=== PATIENT | female | born 1935 | race Caucasian/White ===

== ENCOUNTER 2018-10-10 08:12 | Day surgery (SDC) | payer OTHER, BC ==
[2018-10-03 09:50] LABS: Absolute Lymphocytes (CBC) 2.6 K/uL (0.7-4.9); Absolute Monocytes 0.5 K/uL (0.1-1.3); Basophils % 1.3 % (0-1.3); Hematocrit 39.8 % (36.0-45.0); Lymphocytes % 48.2 % (15.3-44.8); MPV 8.2 fL (7.6-11.3); Monocytes % 9.5 % (3.3-12.3); RBC Red Blood Cell Count 4.38 M/uL (3.86-4.86)
[2018-10-03 10:04] LABS: Potassium 3.7 mmol/L (3.5-5.1)
--- NOTE | 2018-10-03 17:07 | EKG ---
Test Date: 2018-10-03 Test Time: 08:34:17 Tub Washer: RAMYA MEASUREMENT RESULTS: Intervals: Rate: 57 MA: 186 QRSD: 120 QT: 462 QTc: 449 Sproul: P: 69 MA: 186 QRS: -21 T: 33 INTERPRETIVE STATEMENTS: Sinus bradycardia Low voltage QRS Right bundle branch block Abnormal ECG Compared to ECG 11/07/2016 12:28:27 Low QRS voltage now present Electronically Signed On 10-03-18 17:05:33 CDT by Anshul Matute
--- NOTE | 2018-10-04 13:51 | RAD REPORT ---
EXAM DESCRIPTION: López June (2 Views)10/04/2018 1:36 pm CLINICAL HISTORY: Preop/hypertension COMPARISON: September 2017 FINDINGS: The lungs appear clear of acute infiltrate. The heart is normal size. Small to moderate h iatal hernia IMPRESSION: No acute abnormalities displayed
--- OUTSIDE RECORDS SUMMARY | 2018-10-10 08:15 | XMS REPORT ---
:1935 [facility] Address [address] [place] [address] Care Team Providers Name Role Phone Unavailable Unavailable Unavailable Problems This patient has no known problems. Allergies, Adverse Reactions, Alerts This patient has no known allergies or adverse reactions. Medications This patient has no known medications.
[2018-10-10] MEDS ORDERED: CEFOXITIN/SWI 1gm 0 GM/0 ML SYR ONE (08:47)
[2018-10-10] MEDS ORDERED: NA CHLORIDE 0.9% 1,000 ML ONE ×2 (08:47→15:38)
[2018-10-10] MEDS ORDERED: CEFOXITIN/SWI 1gm 1 GM/10 ML SYR ONE (08:49)
[2018-10-10] MEDS ORDERED: PROPOFOL 200 MG/20 ML VIAL IV ONE (14:29)
[2018-10-10] MEDS ORDERED: GLYCOPYRROLATE 0.2 MG/ML SYR ONE ×2 (14:30→15:32)
[2018-10-10] MEDS ORDERED: FENTANYL CITR 100 MCG/2 ML ONE ×2 (14:30→15:36)
[2018-10-10] MEDS ORDERED: LIDOCAINE 2% MPF 5 ML VIAL ONE (14:31)
[2018-10-10] MEDS ORDERED: ROCURONIUM 50 MG/5 ML VIAL IV ONE (14:31)
[2018-10-10] MEDS ORDERED: NEOSTIGMINE 1 MG/ML -10 ML VIAL ONE (14:33)
[2018-10-10] MEDS ORDERED: EPHEDRINE SULF 50 MG/ML VIAL ONE (15:30)
[2018-10-10] MEDS ORDERED: Mastisol Adhesive Liq ONE (16:01)
[2018-10-10] MEDS: MEPERIDINE HCL 25 MG/0.5 ML ONE ×4 (16:07→16:22)
[2018-10-10] MEDS: HYDROMORPHONE HCL 1 MG/ML INJ ONE ×4 (16:38→17:05)
[2018-10-10] MEDS ORDERED: PROMETHAZINE 25 MG/ML VIAL ONE (16:43)
[2018-10-10] MEDS ORDERED: HYDROCODONE/APAP 7.5/325 MG TAB ONE (17:23)
[2018-10-10 17:28] VITALS: TEMP 97.5
[2018-10-10 18:14] VITALS: BP 118/64; O2SAT 96
--- NOTE | 2018-10-11 02:02 | DS ---
Date of Discharge: 10/10/2018 The patient will go to the Day Surgery and home when stable. Disposition: Home. Condition: Stable. Discharge Instructions: Resume home medications and diet. Activity, as tolerated. No heavy lifting . Remove outer dressing in 2 days. Shower. Keep wound clean and dry. Keep Steri-Strips on at all times. Follow up in my office in one week, call for appointment. Tylenol No. 3 one tablet p.o. q.4 p.r.n. pain. /MODL Voice ID: [id number] Report ID: [id number]
--- NOTE | 2018-10-11 02:02 | OP ---
Date of Procedure: 10/10/2018 Surgeon: Hamilton Marrufo MD Electrical Laboratory Technician: JUANITO Franklin. Preoperative Diagnosis: Chronic abdominal pain, most likely secondary to adhesions. Postoperative Diagnosis: Chronic abdominal pain, most likely secondary to adhesions. Procedures: Diagnostic laparoscopy and extensive lysis of adhesions. Estimated Blood Loss: Minimal. Specimen: None. Findings: As above. Anesthesia: General. Complications: None. Disposition: Patient tolerated the procedure in stable condition and taken to Recovery in good gener al condition. Procedure In Detail: The patient was brought to the OR and placed in supine position. General anest hesia was begun. The patient was prepped and draped in usual sterile fashion. Marcaine 0.5% was inf iltrated locally. A 15-blade was used to make a 1 cm left upper quadrant incision. Subcutaneous tis sues were divided. The fascia was identified and divided. A #1 Vicryl stay suture was placed. Anju toneal cavity was entered with blunt dissection. A 12-mm trocar was placed into the peritoneal cavit y under direct vision. Pneumoperitoneum was established and then two 5-mm trocars were placed, one i n the left lower quadrant and one in the left middle quadrant, and then two more [address] aced later in the case, one in the right upper quadrant and one in the epigastrium. The findings are as follows: Extensive midline adhesions in the lower abdomen on both sides as well as the right upp er quadrant and extensive in the right middle quadrant. LigaSure and scissors were utilized as neede d and extensive lysis of adhesions was done for almost an hour to free up all the intestine that were tied up in the scar tissue where there was intestine involved in the adhesions. Scissors were used to do sharp dissection away from the serosa. Care was taken not to injure the serosa. There was no evidence of any bleeding noted and LigaSure was used where omental adhesions were present, and this w as done systematically in the lower abdomen, the right middle abdomen, and the right upper quadrant. After complete lysis of adhesions was performed, there was no evidence of bleeding or bowel injury a ppreciated. All trocars were removed under direct vision. Stay sutures were tied to each other to r eapproximate the fascial defect subcutaneously. The wound was irrigated. Bleeding controlled with c autery and then 3-0 chromic was used to approximate the subcutaneous tissue and close the skin. Stay sutures were tied to each other to approximate the fascial defect. Then, sterile dressing was appli ed. The patient was awakened and taken to Recovery in good general condition. JORGE/MODL Voice ID: [id number] Report ID: [id number]
== END 2018-10-10 18:18 | disposition home or self-care (01) ==
LOC: OR 08:12
PROVIDERS: ATTEND Surgery
PROC: 0DNU4ZZ Release Omentum, Percutaneous Endoscopic Approach (ICD-10-PCS; principal; 2018-10-10 11:00)
DX: K66.0 Peritoneal adhesions (postprocedural) (postinfection) (principal); Z79.899 Other long term (current) drug therapy
CPT/HCPCS: 49329; 93005; 85025; 80048; 36415; 82962 ×2; 71046; J2704; J2710; J2550; J3010 ×2; J2175 ×2; J1170 ×2; J7030 ×2

== ENCOUNTER 2018-10-12 15:56 | Emergency (ER) | payer OTHER, BC ==
--- OUTSIDE RECORDS SUMMARY | 2018-10-12 15:59 | XMS REPORT ---
:1935 [facility] [address] [place] [address] [address] [place] [id number] Care Team Providers Name Role Phone Unavailable Unavailable Unavailable Problems This patient has no known problems. Allergies, Adverse Reactions, Alerts This patient has no known allergies or adverse reactions. Medications This patient has no known medications.
[2018-10-12] MEDS ORDERED: FENTANYL CITR 100 MCG/2 ML ONE ×2 (16:52→18:06)
[2018-10-12] MEDS ORDERED: NA CHLORIDE 0.9% 1,000 ML ONE (16:52)
[2018-10-12] MEDS ORDERED: SIMETHICONE 80 MG TAB ONE (16:52)
[2018-10-12 17:06] LABS: Absolute Lymphocytes (CBC) 1.9 K/uL (0.7-4.9); Absolute Monocytes 0.5 K/uL (0.1-1.3); Absolute Neutrophil 5.6 K/uL (1.8-8.0); Eosinophils % 0.9 % (0-4.4); Hematocrit 40.7 % (36.0-45.0); MPV 7.9 fL (7.6-11.3); Monocytes % 6.7 % (3.3-12.3); RBC Red Blood Cell Count 4.64 M/uL (3.86-4.86)
[2018-10-12 17:12] LABS: Potassium 3.1 mmol/L (3.5-5.1)
[2018-10-12] MEDS ORDERED: KCL 20 MEQ/100 mL IVPB 20 MEQ/100 ML BAG IV ONE (17:45)
--- NOTE | 2018-10-12 17:49 | RAD REPORT ---
EXAM DESCRIPTION: CTAbdomen Pelvis W Contrast - 10/12/2018 5:34 pm CLINICAL HISTORY: Abdominal pain. ABD PAIN COMPARISON: Abdomen Pelvis W Contrast dated 11/12/2016; Abdomen Pelvis W Contrast dated 6; CT ABD PELVIS W CONTRAST dated 09/20/2013; CT ABD PELVIS W CONTRAST dated 07/13/2013; Abdomen Pelvi s Wo Contrast dated 09/05/2018 TECHNIQUE: Biphasic CT imaging of the abdomen and pelvis was performed with 100 ml non-ionic IV cont rast. All CT scans are performed using dose optimization technique as appropriate and may include automated exposure control or mA/KV adjustment according to patient size. FINDINGS: The lung bases are clear.Small hiatal hernia. Mild fatty liver. Cholecystectomy clips. The spleen, adrenal glands normal. Left kidney appears su l without hydronephrosis. Benign right renal cysts. Mild pancreatic atrophy. No bowel obstruction, free air, free fluid or abscess. Postsurgical changes are seen involving the sm all intestine. The appendix is not identified as a discrete structure, however, no secondary findings of appendicitis are identified. No evidence of significant lymphadenopathy. Left total hip arthroplasty noted. Moderate lumbar degenerative changes. IMPRESSION: No acute intra-abdominal or pelvic finding.
[2018-10-12] MEDS ORDERED: PROMETHAZINE 25 MG TABLET ONE (18:49)
[2018-10-12] MEDS ORDERED: ONDANSETRON 4 MG/2 ML VIAL ONE (19:33)
--- NOTE | 2018-10-12 19:59 | ER ---
Nurse's Notes [facility] Name: Yady Wallace Age: 83 yrs Sex: Female : 1935 Arrival Date: 10/12/2018 Time: 16:03 Bed 13 Private MD: Lula Pena C Diagnosis: Hypokalemia;Unspecified abdominal pain Presentation: 10/12 16:08 Presenting complaint: Patient states: I had adhesions removed on with dr ed mcdonough and since then I have not been able to keep anything down by mouth. Pt also reports abd pain and small amounts of diarrhea. Transition of care: patient was not received from another setting of care. Onset of symptoms was October 12, 2018. Risk Assessment: Do you want to hurt yourself or someone else? Patient reports no desire to harm self or others. Initial Sepsis Screen: Does the patient meet any 2 criteria? No. Patient's initial sepsis screen is negative. Does the patient have a suspected source of infection? No. Patient's initial sepsis screen is negative. Care prior to arrival: None. 16:08 Method Of Arrival: Wheelchair la1 16:08 Acuity: NILAY 2 la1 Historical: - Allergies: 16:09 Morphine; la1 16:13 Iodine; tw2 16:13 adhesive tape; tw2 - Home Meds: 16:13 atorvastatin 20 mg Oral tab 1 tab once daily [Active]; brimonidine 0.2 % ophthalmic tw2 drop 1 drop twice a day [Active]; carvedilol 12.5 mg Oral tab 1 tab 2 times per day [Active]; dorzolamide 2 % ophthalmic drop 1 drop twice a day [Active]; famotidine 40 mg Oral tab 1 tab once daily [Active]; gabapentin 600 mg Oral tab 1 tab 2 tabs PO in the am, 1 tab PO at noon, and 2 tabs PO in evening [Active]; latanoprost 0.005 % ophthalmic drop 1 drop once daily [Active]; levothyroxine 50 mcg tab 1 tab once daily [Active]; - PMHx: 16:09 GERD; Glaucoma; High Cholesterol; Hypertension; Hypothyroidism; neuropathy; la1 - PSHx: 16:13 Cholecystectomy; Hernia repair; Tonsillectomy; small bowel resection; Knee surgery; tw2 Hysterectomy; Appendectomy; - Immunization history:: Adult Immunizations up to date. - Social history:: Smoking status: Patient/guardian denies using tobacco. - Ebola Screening: : No symptoms or risks identified at this time. Screenin:00 Abuse screen: Denies threats or abuse. Nutritional screening: No deficits noted. tw2 Tuberculosis screening: No symptoms or risk factors identified. Fall Risk Secondary diagnosis (15 points) impaired mobility. Assessment: 16:10 General: Appears uncomfortable, Behavior is calm, cooperative, appropriate for age. tw2 Pain: Complains of pain in abdomen. Neuro: Level of Consciousness is awake, alert, obeys commands, Oriented to person, place, time, situation. Cardiovascular: Heart tones S1 S2 Patient's skin is warm and dry. Respiratory: Airway is patent Respiratory effort is even, unlabored, Respiratory pattern is regular, symmetrical, Breath sounds are clear bilaterally. GI: Abdomen is round non-distended, Bowel sounds present X 4 quads. Reports Last BM today x2, abdominal pain from the "adhesion surgery, I wish they would have kept me and not sent me home, I hope they keep me today". : No signs and/or symptoms were reported regarding the genitourinary system. EENT: No signs and/or symptoms were reported regarding the EENT system. Derm: No signs and/or symptoms reported regarding the dermatologic system. Musculoskeletal: Circulation, motion, and sensation intact. Range of motion: intact in all extremities. 17:00 Reassessment: No changes from previously documented assessment. Patient and/or family tw2 updated on plan of care and expected duration. Pain level reassessed. Patient is alert, oriented x 3, equal unlabored respirations, skin warm/dry/pink. 17:47 Reassessment: Patient appears in no apparent distress at this time. Patient and/or tw2 family updated on plan of care and expected duration. Pain level reassessed. Patient is alert, oriented x 3, equal unlabored respirations, skin warm/dry/pink. pt back from cat scan at this time, pt states "pain was better initially but it is hurting again", provider notified. 18:39 Reassessment: pt c/o nausea at this time, medicated as ordered. tw2 19:08 General: Appears in no apparent distress. uncomfortable, Behavior is calm, cooperative, rr5 appropriate for age. Pain: Denies pain. Neuro: Level of Consciousness is awake, alert, obeys commands, Oriented to person, place, time, situation, Appropriate for age. Cardiovascular: Capillary refill < 3 seconds Patient's skin is warm and dry. Respiratory: Airway is patent Respiratory effort is even, unlabored, Respiratory pattern is regular, symmetrical. GI: Reports nausea, vomiting. : No signs and/or symptoms were reported regarding the genitourinary system. EENT: No signs and/or symptoms were reported regarding the EENT system. Derm: No signs and/or symptoms reported regarding the dermatologic system. Musculoskeletal: Circulation, motion, and sensation intact. Range of motion: intact in all extremities. 20:00 Reassessment: Patient appears in no apparent distress at this time. Patient states rr5 symptoms have improved. 20:26 Reassessment: Patient appears in no apparent distress at this time. Patient is alert, rr5 oriented x 3, equal unlabored respirations, skin warm/dry/pink. discharge instruction given and explained without complaints made. Patient states symptoms have improved. Vital Signs: 16:10 BP 130 / 66; Pulse 76; Resp 18; Temp 99.1; Pulse Ox 98% on R/A; Weight 73.94 kg; Height la1 5 ft. 1 in. (154.94 cm); Pain 10/10; 17:00 BP 144 / 71; Pulse 75; Resp 17; Pulse Ox 95% on R/A; tw2 17:48 BP 130 / 66; Pulse 88; Resp 17; Pulse Ox 97% on R/A; tw2 17:56 Temp 99.6(O); tw2 18:40 BP 134 / 68; Pulse 92; Resp 17; Pulse Ox 99% 2 lpm ; tw2 19:11 BP 136 / 84; Pulse 94; Resp 17; Temp 98.8; Pulse Ox 99% on 2 lpm NC; Pain 0/10; rr5 20:15 BP 133 / 75; Pulse 90; Resp 18; Temp 98.7; Pulse Ox 98% on R/A; rr5 16:10 Body Mass Index 30.80 (73.94 kg, 154.94 cm) la1 18:40 pt placed on 2L nc at this time to help with the nausea tw2 ED Course: 16:03 Patient arrived in ED. mr 16:04 Lula Pena MD is Private Physician. mr 16:07 Francesca Rolle, ADA[facility]. snw 16:07 Alessio Mcpherson MD is Attending Physician. snw 16:09 Triage completed. la1 16:10 Any Ellis, RN is Primary Nurse. tw2 16:10 Arm band placed on left wrist. la1 16:10 Bed in low position. Call light in reach. Adult w/ patient. Pulse ox on. NIBP on. tw2 16:46 Initial lab(s) drawn, by me, sent to lab. First set of blood cultures drawn. kj1 16:51 Inserted saline lock: 22 gauge in right antecubital area, using aseptic technique. kj1 16:52 Blood Culture* Sent. kj1 16:56 Radiology exam delayed due to lab results not completed at this time. (BUN/Creatinine). bq 17:33 CT completed. Patient tolerated procedure well. Patient moved back from CT. bq 17:34 CT Abd/Pelvis - W/Contrast In Process Unspecified. EDMS 19:00 Report given to JAM Soares. tw2 19:57 Lula Pena MD is Referral Physician. snw 20:28 No provider procedures requiring assistance completed. IV discontinued, intact, rr5 bleeding controlled, No redness/swelling at site. Pressure dressing applied. Administered Medications: 16:48 Drug: fentaNYL (PF) 25 mcg Route: IVP; Site: right antecubital; tw2 17:10 Follow up: Response: No adverse reaction; Pain is decreased tw2 16:50 Drug: Simethicone 120 mg Route: PO; tw2 17:47 Follow up: Response: No adverse reaction tw2 16:56 Drug: NS 0.9% 1000 ml Route: IV; Rate: 100 ml/hr; Site: right antecubital; tw2 20:30 Follow up: Response: No adverse reaction; IV Status: Order to discontinue infusion; IV rr5 Intake: 350ml 17:46 Drug: Potassium Chloride 20 mEq Route: IV; Rate: calculated rate; Site: right tw2 antecubital; 19:50 Follow up: Response: No adverse reaction; IV Status: Completed infusion; IV Intake: [id number] 17:56 Drug: fentaNYL (PF) 25 mcg Route: IVP; Site: right antecubital; tw2 19:30 Follow up: Response: No adverse reaction rr5 18:38 Drug: Phenergan 25 mg Route: PO; tw2 20:29 Follow up: Response: No adverse reaction rr5 19:24 Drug: Zofran 4 mg Route: IVP; Site: right antecubital; rr5 20:29 Follow up: Response: No adverse reaction; Marked relief of symptoms rr5 Intake: 19:50 IV: 50ml; Total: 50ml. rr5 20:30 IV: 350ml; Total: 400ml. rr5 Outcome: 19:58 Discharge ordered by . odilon 20:28 Discharged to home via wheelchair, with family. rr5 20:28 Condition: stable 20:28 Discharge instructions given to patient, family, Instructed on discharge instructions, follow up and referral plans. medication usage, Demonstrated understanding of instructions, follow-up care, medications, Prescriptions given X 2. 20:31 Patient left the ED. rr5 Signatures: Dispatcher [employer] EDMS Francesca Rolle, JAVIERC [employer]ON[employer] MAKING MACHINE OPERATOR-Valeria MorrisonbrionnaCeleste Lee RN RN la1 Any Ellis RN RN tw2 Rodger Clark RN RN rr5 Lexi August kj1
--- NOTE | 2018-10-12 19:59 | EDPHYS ---
Physician Documentation [facility] Name: Yady Wallace Age: 83 yrs Sex: Female : 1935 Arrival Date: 10/12/2018 Time: 16:03 Bed 13 Private MD: Lula Pena C ED Physician Alessio Mcpherson HPI: 10/12 16:33 This 83 yrs old Female presents to ER via Wheelchair with complaints of snw Vomiting, Abdominal Pain. 16:33 The patient presents to the emergency department with nausea, vomiting, diarrhea. snw Onset: The symptoms/episode began/occurred suddenly. Onset: The symptoms/episode began/occurred 3 day(s) ago, and became persistent. Possible causes: recent endoscopic lap with removal of adhesions. The symptoms are aggravated by pressure, food , The symptoms are alleviated by nothing. Severity of symptoms: At their worst the symptoms were moderate in the emergency department the symptoms are unchanged. It is unknown whether or not the patient has had similar symptoms in the past. The patient has been recently seen by a physician: Dr. Nriu escalante general surgeon, 3 day(s) ago. Historical: - Allergies: 16:09 Morphine; la1 16:13 Iodine; tw2 16:13 adhesive tape; tw2 - Home Meds: 16:13 atorvastatin 20 mg Oral tab 1 tab once daily [Active]; brimonidine 0.2 % ophthalmic tw2 drop 1 drop twice a day [Active]; carvedilol 12.5 mg Oral tab 1 tab 2 times per day [Active]; dorzolamide 2 % ophthalmic drop 1 drop twice a day [Active]; famotidine 40 mg Oral tab 1 tab once daily [Active]; gabapentin 600 mg Oral tab 1 tab 2 tabs PO in the am, 1 tab PO at noon, and 2 tabs PO in evening [Active]; latanoprost 0.005 % ophthalmic drop 1 drop once daily [Active]; levothyroxine 50 mcg tab 1 tab once daily [Active]; - PMHx: 16:09 GERD; Glaucoma; High Cholesterol; Hypertension; Hypothyroidism; neuropathy; la1 - PSHx: 16:13 Cholecystectomy; Hernia repair; Tonsillectomy; small bowel resection; Knee surgery; tw2 Hysterectomy; Appendectomy; - Immunization history:: Adult Immunizations up to date. - Social history:: Smoking status: Patient/guardian denies using tobacco. - Ebola Screening: : No symptoms or risks identified at this time. ROS: 16:32 Constitutional: Negative for fever, chills, and weight loss, Eyes: Negative for injury, snw pain, redness, and discharge, ENT: Negative for injury, pain, and discharge, Neck: Negative for injury, pain, and swelling, Cardiovascular: Negative for chest pain, palpitations, and edema, Respiratory: Negative for shortness of breath, cough, wheezing, and pleuritic chest pain, Back: Negative for injury and pain, : Negative for injury, bleeding, discharge, and swelling, MS/Extremity: Negative for injury and deformity, Skin: Negative for injury, rash, and discoloration, Neuro: Negative for headache, weakness, numbness, tingling, and seizure. 16:32 Abdomen/GI: Positive for abdominal pain, nausea, vomiting, diarrhea. Exam: 16:31 Constitutional: This is a well developed, well nourished patient who is awake, alert, snw and in no acute distress. Head/Face: Normocephalic, atraumatic. Eyes: Pupils equal round and reactive to light, extra-ocular motions intact. Lids and lashes normal. Conjunctiva and sclera are non-icteric and not injected. Cornea within normal limits. Periorbital areas with no swelling, redness, or edema. ENT: Nares patent. No nasal discharge, no septal abnormalities noted. Tympanic membranes are normal and external auditory canals are clear. Oropharynx with no redness, swelling, or masses, exudates, or evidence of obstruction, uvula midline. Mucous membranes moist. Neck: Trachea midline, no thyromegaly or masses palpated, and no cervical lymphadenopathy. Supple, full range of motion without nuchal rigidity, or vertebral point tenderness. No Meningismus. Chest/axilla: Normal chest wall appearance and motion. Nontender with no deformity. No lesions are appreciated. Cardiovascular: Regular rate and rhythm with a normal S1 and S2. No gallops, murmurs, or rubs. Normal PMI, no JVD. No pulse deficits. Respiratory: Lungs have equal breath sounds bilaterally, clear to auscultation and percussion. No rales, rhonchi or wheezes noted. No increased work of breathing, no retractions or nasal flaring. Back: No spinal tenderness. No costovertebral tenderness. Full range of motion. Skin: Warm, dry with normal turgor. Normal color with no rashes, no lesions, and no evidence of cellulitis. MS/ Extremity: Pulses equal, no cyanosis. Neurovascular intact. Full, normal range of motion. Neuro: Awake and alert, GCS 15, oriented to person, place, time, and situation. Cranial nerves II-XII grossly intact. Motor strength 5/5 in all extremities. Sensory grossly intact. Cerebellar exam normal. Normal gait. 16:31 Abdomen/GI: Inspection: obese Bowel sounds: diminished, Palpation: mild abdominal tenderness, in all quadrants, clean and dry scope incision bandages, large healed vertical scar from umbilicus to perineum. Vital Signs: 16:10 BP 130 / 66; Pulse 76; Resp 18; Temp 99.1; Pulse Ox 98% on R/A; Weight 73.94 kg; Height la1 5 ft. 1 in. (154.94 cm); Pain 10/10; 17:00 BP 144 / 71; Pulse 75; Resp 17; Pulse Ox 95% on R/A; tw2 17:48 BP 130 / 66; Pulse 88; Resp 17; Pulse Ox 97% on R/A; tw2 17:56 Temp 99.6(O); tw2 18:40 BP 134 / 68; Pulse 92; Resp 17; Pulse Ox 99% 2 lpm ; tw2 19:11 BP 136 / 84; Pulse 94; Resp 17; Temp 98.8; Pulse Ox 99% on 2 lpm NC; Pain 0/10; rr5 20:15 BP 133 / 75; Pulse 90; Resp 18; Temp 98.7; Pulse Ox 98% on R/A; rr5 16:10 Body Mass Index 30.80 (73.94 kg, 154.94 cm) la1 18:40 pt placed on 2L nc at this time to help with the nausea tw2 MDM: 16:07 Patient medically screened. snw 20:05 Data reviewed: vital signs, nurses notes. Data interpreted: Pulse oximetry: on room air snw is 99 %. Interpretation: normal. Counseling: I had a detailed discussion with the patient and/or guardian regarding: the historical points, exam findings, and any diagnostic results supporting the discharge/admit diagnosis, the presence of at least one elevated blood pressure reading (>120/80) during this emergency department visit, lab results, radiology results, the need for outpatient follow up, to return to the emergency department if symptoms worsen or persist or if there are any questions or concerns that arise at home. Special discussion: Based on the patient's Hx, exam, and Dx evaluation, there is no indication for emergent surgery or inpatient Tx. It is understood by the patient/guardian that if the Sx's persist or worsen they need to return immediately for re-evaluation. I have referred the patient to see his PCP for further evaluation of high blood pressure. Based on the history and exam findings, there is no indication for further emergent testing or inpatient evaluation. 10/12 16:24 Order name: CBC with Diff; Complete Time: 17:10 snw 10/12 16:24 Order name: Chem 7; Complete Time: 17:27 snw 10/12 16:24 Order name: Blood Culture* snw 10/12 16:29 Order name: CT Abd/Pelvis - W/Contrast; Complete Time: 17:54 snw 10/12 16:24 Order name: SL; Complete Time: 16:57 snw Administered Medications: 16:48 Drug: fentaNYL (PF) 25 mcg Route: IVP; Site: right antecubital; tw2 17:10 Follow up: Response: No adverse reaction; Pain is decreased tw2 16:50 Drug: Simethicone 120 mg Route: PO; tw2 17:47 Follow up: Response: No adverse reaction tw2 16:56 Drug: NS 0.9% 1000 ml Route: IV; Rate: 100 ml/hr; Site: right antecubital; tw2 20:30 Follow up: Response: No adverse reaction; IV Status: Order to discontinue infusion; IV rr5 Intake: 350ml 17:46 Drug: Potassium Chloride 20 mEq Route: IV; Rate: calculated rate; Site: right tw2 antecubital; 19:50 Follow up: Response: No adverse reaction; IV Status: Completed infusion; IV Intake: 02nasw5 17:56 Drug: fentaNYL (PF) 25 mcg Route: IVP; Site: right antecubital; tw2 19:30 Follow up: Response: No adverse reaction rr5 18:38 Drug: Phenergan 25 mg Route: PO; tw2 20:29 Follow up: Response: No adverse reaction rr5 19:24 Drug: Zofran 4 mg Route: IVP; Site: right antecubital; rr5 20:29 Follow up: Response: No adverse reaction; Marked relief of symptoms rr5 Disposition: 10/12/18 19:58 Discharged to Home. Impression: Hypokalemia, Unspecified abdominal pain. - Condition is Stable. - Discharge Instructions: Abdominal Pain, Adult, Potassium Content of Foods, Hypertension, Intestinal Gas and Gas Pains, Pediatric, Colic, [id number], Hypokalemia. - Prescriptions for Gas- X Ultra-Strength - take 1 tablet by ORAL route 1-3 times daily; 1 box. promethazine 25 mg Oral Tablet - take 1 tablet by ORAL route every 6 hours As needed; 20 tablet. - Medication Reconciliation Form, Thank You Letter, Antibiotic Education, Prescription Opioid Use form. - Follow up: Lula Pena MD; When: 2 - 3 days; Reason: Recheck today's complaints, Continuance of care, Re-evaluation by your physician. Follow up: Emergency Department; When: As needed; Reason: Worsening of condition. Addendum: 10/14/2018 07:02 Co-signature as Attending Physician, Alessio Mcpherson MD. r n Signatures: Dispatcher [employer] EDNE Francesca Rolle, GLIDING PILOT INSTRUCTOR-C GLIDING PILOT INSTRUCTOR-Csnw Alessio Mcpherson MD MD rn Attema, Ned RN RN la1 Any Ellis RN RN tw2 Rodger Clark, RN RN rr5 Corrections: (The following items were deleted from the chart) 10/12 16:44 16:25 Abdomen Pelvis Wo Con+CT.RAD.BRZ ordered. [facility] 20:31 19:58 10/12/2018 19:58 Discharged to Home. Impression: Hypokalemia; Unspecified rr5 abdominal pain. Condition is Stable. Forms are Medication Reconciliation Form, Thank You Letter, Antibiotic Education, Prescription Opioid Use. Follow up: Lula Pena; When: 2 - 3 days; Reason: Recheck today's complaints, Continuance of care, Re-evaluation by your physician. Follow up: Emergency Department; When: As needed; Reason: Worsening of condition. snw
[2018-10-12 23:58] VITALS: BP 133/75; TEMP 98.7; O2SAT 98
== END 2018-10-12 20:31 | disposition home or self-care (01) ==
LOC: ER 15:56
DX: E87.6 Hypokalemia (principal); I10 Essential (primary) hypertension; E03.9 Hypothyroidism, unspecified; E78.00 Pure hypercholesterolemia, unspecified; K21.9 Gastro-esophageal reflux disease without esophagitis; Z98.890 Other specified postprocedural states
CPT/HCPCS: 96365; 96361; 87040 ×2; 85025; 80048; 36415; 74177; 96375; 99284; 96366; Q9967; J3010 ×2; J7030; J2405

== ENCOUNTER 2018-11-13 13:15 | Emergency (ER) | payer OTHER, BC ==
--- OUTSIDE RECORDS SUMMARY | 2018-11-13 13:20 | XMS REPORT ---
:1935 Author Organization [facility] Address [address] [place] [address] Care Team Providers Name Role Phone Unavailable Unavailable Unavailable Problems This patient has no known problems. Allergies, Adverse Reactions, Alerts This patient has no known allergies or adverse reactions. Medications This patient has no known medications.
[2018-11-13 14:32] LABS: Absolute Lymphocytes (CBC) 1.4 K/uL (0.7-4.9); Hematocrit 41.5 % (36.0-45.0); Lymphocytes % 26.2 % (15.3-44.8); MPV 8.1 fL (7.6-11.3); Monocytes % 6.4 % (3.3-12.3); RBC Red Blood Cell Count 4.67 M/uL (3.86-4.86)
[2018-11-13] MEDS ORDERED: ONDANSETRON 4 MG/2 ML VIAL ONE ×2 (14:33→14:35)
[2018-11-13] MEDS ORDERED: NA CHLORIDE 0.9% 500 ML ONE (14:33)
--- NOTE | 2018-11-13 14:36 | RAD REPORT ---
EXAM DESCRIPTION: CT - Stone Protocol - 11/13/2018 2:19 pm CLINICAL HISTORY: Abdominal pain. Vomiting COMPARISON: October 12, 2018 TECHNIQUE: Computed axial tomography of the abdomen pelvis was obtained without oral or IV contrast. Lack of IV and oral contrast limits evaluation of solid organs, bowel, and vessels. Coronal reformat keenan images were obtained and reviewed. All CT scans are performed using dose optimization technique as appropriate and may include automated exposure control or mA/KV adjustment according to patient size. FINDINGS: A renal calculus is not seen. An ureteral calculus is not noted. A bladder calculus is not present. Small to moderate hiatal hernia The liver, spleen, pancreas and adrenals appear grossly normal There is no evidence of diverticulitis. Spondylolysis L5 IMPRESSION: Negative for a genitourinary calculus
[2018-11-13 14:48] LABS: Albumin 4.1 g/dL (3.4-5.0); Bilirubin Direct 0.2 mg/dL (0-0.2); Bilirubin Total 0.6 mg/dL (0.2-1.0); Potassium 3.5 mmol/L (3.5-5.1); Protein, Total 7.8 g/dL (6.4-8.2)
[2018-11-13 14:49] LABS: Urine Blood TRACE (NEG); Urine Glucose NEGATIVE (NEG); Urine Protein 1+ (NEG); Urine Specific Gravity 1.015 (1.005-1.030); Urine pH 6.5 (5.0-7.0)
--- NOTE | 2018-11-13 15:26 | ER ---
Nurse's Notes [facility] Name: Yady Wallace Age: 83 yrs Sex: Female : 1935 Arrival Date: 11/13/2018 Time: 13:19 Bed 25 Private MD: Diagnosis: Vomiting;Diarrhea, unspecified;Urinary tract infection, site not specified Presentation: 11/13 13:20 Presenting complaint: Patient states: im been throwing up and feeling nauseous for 3 hj days now; S/P lysis of adhesion a month ago by Dr Marrufo; reports diarrhea; denies fever;. Transition of care: patient was not received from another setting of care. Onset of symptoms was November 13, 2018. Risk Assessment: Do you want to hurt yourself or someone else? Patient reports no desire to harm self or others. Initial Sepsis Screen: Does the patient meet any 2 criteria? No. Patient's initial sepsis screen is negative. Does the patient have a suspected source of infection? No. Patient's initial sepsis screen is negative. Care prior to arrival: None. 13:20 Method Of Arrival: Ambulatory hj 13:20 Acuity: NILAY 3 hj Triage Assessment: 14:21 General: Appears in no apparent distress. Behavior is calm, cooperative. GI: Reports ls4 nausea. Historical: - Allergies: 13:22 adhesive tape; hj 13:22 Iodine; hj 13:22 Morphine; hj - PMHx: 13:22 GERD; Glaucoma; High Cholesterol; Hypertension; Hypothyroidism; neuropathy; hj - PSHx: 13:22 Cholecystectomy; Hernia repair; Tonsillectomy; small bowel resection; Knee surgery; hj Hysterectomy; Appendectomy; - Immunization history:: Adult Immunizations up to date. - Social history:: Smoking status: Patient/guardian denies using tobacco. - Ebola Screening: : Patient negative for fever greater than or equal to 101.5 degrees Fahrenheit, and additional compatible Ebola Virus Disease symptoms Patient denies exposure to infectious person Patient denies travel to an Ebola-affected area in the 21 days before illness onset No symptoms or risks identified at this time. Screenin:20 Abuse screen: Denies threats or abuse. Denies injuries from another. Nutritional ls4 screening: No deficits noted. Tuberculosis screening: No symptoms or risk factors identified. Fall Risk None identified. Assessment: 14:27 Pain: Complains of pain in epigastric area, right upper quadrant and left upper ls4 quadrant Pain currently is 6 out of 10 on a pain scale. Neuro: Level of Consciousness is awake, alert, obeys commands, Oriented to person, place, time, situation. GI: Abdomen is non-distended, obese, Last BM was November 13, 2018. Bowel sounds present X 4 quads. Vital Signs: 13:22 BP 158 / 71; Pulse 85; Resp 18; Temp 98.0(TE); Pulse Ox 98% on R/A; Weight 74.39 kg; hj Height 5 ft. 1 in. (154.94 cm); Pain 8/10; 14:30 BP 138 / 74; Pulse 80; Resp 16; Temp 98.1; Pulse Ox 98% ; Pain 3/10; ls4 15:28 BP 157 / 80; Pulse 82; Resp 16; Temp 98.2(O); Pulse Ox 97% on R/A; Pain 3/10; ls4 13:22 Body Mass Index 30.99 (74.39 kg, 154.94 cm) ED Course: 13:19 Patient arrived in ED. rg4 13:21 Triage completed. 13:22 Arm band placed on right wrist. 13:32 Timothy Mcneill PA is PHCP. [facility] 13:32 Roberto Medrano MD is Attending Physician. [facility] 14:08 Initial lab(s) drawn, by ca, sent to lab. Inserted saline lock: 22 gauge in left lt1 antecubital area, using aseptic technique. 14:14 Hanna Sharp, RN is Primary Nurse. ls4 14:17 CT completed. Patient tolerated procedure well. Patient moved to CT via wheelchair. Patient moved back from CT. 14:19 CT Stone Protocol In Process Unspecified. EDMS 14:20 Patient has correct armband on for positive identification. Fall risk band placed. ls4 Placed in gown. Bed in low position. Call light in reach. Side rails up X 1. Pulse ox on. NIBP on. Warm blanket given. Verbal reassurance given. 14:21 No provider procedures requiring assistance completed. ls4 15:18 Diet: Patient given juice. Tolerated well. ls4 15:36 IV discontinued, intact, bleeding controlled, No redness/swelling at site. Pressure ls4 dressing applied. Administered Medications: 14:17 Drug: Zofran 4 mg Route: IVP; Site: left antecubital; ls4 14:47 Follow up: Response: No adverse reaction; Marked relief of symptoms ls4 14:17 Drug: NS 0.9% 500 ml Route: IV; Rate: bolus; Site: left antecubital; ls4 14:47 Follow up: IV Status: Completed infusion; IV Intake: 500ml ls4 Intake: 14:47 IV: 500ml; Total: 500ml. ls4 Outcome: 15:25 Discharge ordered by . radhika 15:55 Discharged to home ambulatory, with family. ls4 15:55 Condition: stable 15:55 Discharge instructions given to patient, family, Instructed on discharge instructions, follow up and referral plans. medication usage, safety practices, Demonstrated understanding of instructions, follow-up care, medications, Prescriptions given X 2. 15:57 Patient left the ED. ls4 Signatures: Dispatcher [employer] EDMS Timothy Mcneill PA PA jmm Jones, Susan sj Joaquin, Henry, RN RN Jigna Espinoza Hanna Ochoa RN RN ls4 Zayda, Gracia 1 Corrections: (The following items were deleted from the chart) 13:21 13:20 Presenting complaint: Patient states: im been throwing up and feeling nauseous for 3 days now; S/P lysis of adhesion a month ago; reports diarrhea; denies fever; hj 13:25 13:22 Pulse 85bpm; Resp 18bpm; Pulse Ox 98% RA; Temp 98.0F Temporal; 74.39 kg; Height 5 hj ft. 1 in.; BMI: 30.9; Pain 8/10; hj
--- NOTE | 2018-11-13 15:26 | EDPHYS ---
Physician Documentation [facility] Name: Yady [facility] Age: 83 yrs Sex: Female : 1935 Arrival Date: 11/13/2018 Time: 13:19 Bed 25 Private MD: ED Physician Roberto Medrano Historical: - Allergies: 11/13 13:22 adhesive tape; hj 13:22 Iodine; hj 13:22 Morphine; hj - PMHx: 13:22 GERD; Glaucoma; High Cholesterol; Hypertension; Hypothyroidism; neuropathy; hj - PSHx: 13:22 Cholecystectomy; Hernia repair; Tonsillectomy; small bowel resection; Knee surgery; hj Hysterectomy; Appendectomy; - Immunization history:: Adult Immunizations up to date. - Social history:: Smoking status: Patient/guardian denies using tobacco. - Ebola Screening: : Patient negative for fever greater than or equal to 101.5 degrees Fahrenheit, and additional compatible Ebola Virus Disease symptoms Patient denies exposure to infectious person Patient denies travel to an Ebola-affected area in the 21 days before illness onset No symptoms or risks identified at this time. Vital Signs: 13:22 BP 158 / 71; Pulse 85; Resp 18; Temp 98.0(TE); Pulse Ox 98% on R/A; Weight 74.39 kg; hj Height 5 ft. 1 in. (154.94 cm); Pain 8/10; 14:30 BP 138 / 74; Pulse 80; Resp 16; Temp 98.1; Pulse Ox 98% ; Pain 3/10; ls4 15:28 BP 157 / 80; Pulse 82; Resp 16; Temp 98.2(O); Pulse Ox 97% on R/A; Pain 3/10; ls4 13:22 Body Mass Index 30.99 (74.39 kg, 154.94 cm) hj MDM: 13:44 Patient medically screened. radhika 15:23 Data reviewed: vital signs, nurses notes. Counseling: I had a detailed discussion with radhika the patient and/or guardian regarding: the historical points, exam findings, and any diagnostic results supporting the discharge/admit diagnosis, lab results, radiology results, the need for outpatient follow up, to return to the emergency department if symptoms worsen or persist or if there are any questions or concerns that arise at home. ED course: Patient states feeling much better in the ED. Patient is advised to follow up with her pcp and otherwise given strict return precautions. patient understood and agrees with the plan of care. . 11/13 13:39 Order name: Basic Metabolic Panel; Complete Time: 14:55 [facility] 11/13 13:39 Order name: CBC with Diff; Complete Time: 14:55 [facility] 11/13 13:39 Order name: Creatinine for Radiology; Complete Time: 14:55 [facility] 11/13 13:39 Order name: Hepatic Function; Complete Time: 14:55 [facility] 11/13 13:39 Order name: Lipase; Complete Time: 14:55 [facility] 11/13 14:29 Order name: Urine Dipstick--Ancillary (enter results); Complete Time: 14:55 11/13 13:28 Order name: Urine Dipstick-Ancillary (obtain specimen); Complete Time: 14:16 11/13 13:39 Order name: IV Saline Lock; Complete Time: 14:09 [facility] 11/13 13:39 Order name: Labs collected and sent; Complete Time: 14:09 [facility] 11/13 14:02 Order name: CT Stone Protocol; Complete Time: 14:55 [facility] 11/13 14:57 Order name: PO challenge; Complete Time: 15:18 jmm Administered Medications: 14:17 Drug: Zofran 4 mg Route: IVP; Site: left antecubital; ls4 14:47 Follow up: Response: No adverse reaction; Marked relief of symptoms ls4 14:17 Drug: NS 0.9% 500 ml Route: IV; Rate: bolus; Site: left antecubital; ls4 14:47 Follow up: IV Status: Completed infusion; IV Intake: 500ml ls4 Disposition: 11/13/18 15:25 Discharged to Home. Impression: Vomiting, Diarrhea, unspecified, Urinary tract infection, site not specified. - Condition is Stable. - Discharge Instructions: Diarrhea, Adult, Nausea and Vomiting, Adult, Urinary Tract Infection, Adult. - Prescriptions for Cephalexin 500 mg Oral Capsule - take 1 capsule by ORAL route every 12 hours for 10 days; 20 capsule. Zofran ODT 4 mg Oral tablet,disintegrating - place 1 tablet by TRANSLINGUAL route every 4-6 hours; 20 tablet. - Medication Reconciliation Form, Thank You Letter, Antibiotic Education, Prescription Opioid Use form. - Follow up: Private Physician; When: 2 - 3 days; Reason: Recheck today's complaints, Continuance of care, Re-evaluation by your physician. Addendum: 11/24/2018 10:32 Addendum: This is an 83 year old female that presents to the ED with complaints of j mm abdominal pain, vomiting, nausea beginning 3 days ago. Patient recently had RAVEN 1 month prior. Patient denies fever. ROS: Positive for abdominal pain, vomiting, otherwise negative. Physical Exam: Gen: NAD, Chest: CTA bilaterally, Resp: Non labored, Extremities: FROM appreciated, no edema. Neuro: A x o x 3, normal gait. Abd: Mild diffuse tenderness on palpation. . Signatures: Dispatcher [employer] EDMS Timothy Mcneill PA PA jmm Joaquin, Henry, JAM RN Hanna Francois RN RN ls4 Corrections: (The following items were deleted from the chart) 11/13 15:57 15:25 11/13/2018 15:25 Discharged to Home. Impression: Vomiting; Diarrhea, unspecified; ls4 Urinary tract infection, site not specified. Condition is Stable. Forms are Medication Reconciliation Form, Thank You Letter, Antibiotic Education, Prescription Opioid Use. Follow up: Private Physician; When: 2 - 3 days; Reason: Recheck today's complaints, Continuance of care, Re-evaluation by your physician. radhika
[2018-11-13 16:05] VITALS: BP 157/80; TEMP 98.2; O2SAT 97
== END 2018-11-13 15:57 | disposition home or self-care (01) ==
LOC: ER 13:15
DX: N39.0 Urinary tract infection, site not specified (principal); R19.7 Diarrhea, unspecified; I10 Essential (primary) hypertension; Z88.5 Allergy status to narcotic agent; Z91.048 Other nonmedicinal substance allergy status
CPT/HCPCS: 85025; 80048; 36415; 80076; 81003; 83690; 76377; 74176; 96374; 99284; J2405 ×2

== ENCOUNTER 2020-08-18 15:04 | Emergency (ER) | payer OTHER, BC ==
[2020-08-18] MEDS ORDERED: ONDANSETRON 4 MG/2 ML VIAL ONE ×2 (17:44→19:59)
[2020-08-18] MEDS ORDERED: FAMOTIDINE 20 MG/2 ML VIAL IV ONE (17:44)
[2020-08-18 17:50] LABS: Protime INR 1.09
[2020-08-18 17:51] LABS: Absolute Lymphocytes (CBC) 1.9 K/uL (0.7-4.9); Basophils % 1.1 % (0-1.3); Hematocrit 37.1 % (36.0-45.0); Lymphocytes % 36.1 % (15.3-44.8); MPV 8.2 fL (7.6-11.3); RBC Red Blood Cell Count 4.16 M/uL (3.86-4.86)
[2020-08-18 18:03] LABS: Albumin 3.6 g/dL (3.4-5.0); Bilirubin Direct 0.4 mg/dL (0-0.2); Bilirubin Total 1.5 mg/dL (0.2-1.0); Magnesium 1.6 mg/dL (1.8-2.4); Potassium 3.2 mmol/L (3.5-5.1); Protein, Total 6.7 g/dL (6.4-8.2); Troponin (Emerg Dept Use Only) 0.02 ng/mL (0.0-0.045)
--- NOTE | 2020-08-18 18:11 | RAD REPORT ---
EXAM DESCRIPTION: CT - [id number] - 08/18/2020 5:55 pm CLINICAL HISTORY: nausea/vomiting, recent fall with head and neck injury COMPARISON: No comparisons TECHNIQUE: Axial 5 mm thick images of the head were obtained. Axial 2 mm thick images of the cervic al spine were obtained with sagittal and coronal reconstruction images generated and reviewed. All CT scans are performed using dose optimization technique as appropriate and may include automated exposure control or mA/KV adjustment according to patient size. FINDINGS: No intracranial hemorrhage, mass, edema or acute intracranial finding. No suspicion for ac kevon infarction. Mild to moderate atrophy and mild chronic ischemic changes are present. Ventricles ar e in proportion. Arterial tree calcifications are present. Mastoid air cells are clear. No acute para nasal sinus finding. No globe or orbit abnormality seen. No skullbase fracture or acute bone finding. Cervical bodies are normal in height. Minimal anterior subluxation of C3 on C4 and C4 on C5 noted fro m facet degenerative change. C4-5, C5-6 and C6-7 disc space narrowing seen with endplate spurring. Fa cet degenerative change and uncovertebral joint hypertrophy changes are present. These changes result in bilateral bony foraminal encroachment at C3-4, C4-5, C5-6 and to a lesser degree C6-7. No fractur e or acute bony abnormality. Central canal detail is inherently limited. No paraspinal mass or hematoma. IMPRESSION: Negative CT head examination for acute or significant finding. Prominent cervical spine degenerative change as detailed. No acute findings.
--- NOTE | 2020-08-18 18:14 | RAD REPORT ---
EXAM DESCRIPTION: RAD - Chest Single View - 08/18/2020 5:50 pm CLINICAL HISTORY: nausea/vomiting, abdominal pain COMPARISON: Two view chest October 2018 TECHNIQUE: AP portable chest image was obtained 08/18/2020 5:50 pm . FINDINGS: Lungs are clear. Interstitial pattern matches comparison. Hiatal hernia again noted. Heart and vasculature are normal. No measurable pleural effusion and no pneumothorax. No acute bony abnorm ality seen. No acute aortic findings suspected. IMPRESSION: No acute cardiopulmonary process. No significant change from comparison study.
[2020-08-18] MEDS ORDERED: MAGNESIUM SULFATE 1 gm IVPB 1 GM/100 ML BAG IV ONE (18:57)
[2020-08-18] MEDS ORDERED: POTASSIUM 25 MEQ EFFERV TAB ONE (18:57)
--- NOTE | 2020-08-18 19:36 | RAD REPORT ---
EXAM DESCRIPTION: CT - Abdomen Pelvis Wo Contrast - 08/18/2020 7:11 pm CLINICAL HISTORY: Abd pain;Nausea / vomiting COMPARISON: [facility] Protocol dated 11/13/2018 TECHNIQUE: Axial [address] imaging of the abdomen and pelvis was performed without IV contrast. No IV contrast was given because of allergy, abnormal renal function, patient refusal or physician re quest. No oral contrast. All CT scans are performed using dose optimization technique as appropriate and may include automated exposure control or mA/KV adjustment according to patient size. FINDINGS: No suspicious findings in the lung bases. Large hiatal hernia is present with approximatel y 25% of the stomach intrathoracic. This limits assessment of the gastric vidal. No cardiomegaly or p ericardial effusion. The liver, spleen and pancreas show no suspicious findings on non-contrast imaging. Cholecystectomy c lips are present. No abnormal biliary tree dilatation. No hydronephrosis or suspicious renal mass. An 18 millimeter round low-density mass lateral mid right kidney most likely a cyst and has not clearly changed from November 2018. No significant adrenal finding . Isodense renal masses and pyelonephritis cannot be excluded in the absence of IV contrast. Partiall y filled urinary bladder shows no gross abnormality. 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 Body and antrum of the stomach shows no wall thickening or mass. No dilated small bowel loops. Duoden um is mildly prominent. Prominent diverticulosis seen within a tortuous and redundant sigmoid colon. No acute colon finding identifiable. No free air, free fluid or inflammatory stranding. No hernia, mass or bulky lymphadenopathy. Prominent disc and bony degenerative changes are present. L5 pars interarticularis defects are presen t. IMPRESSION: Non-contrast enhanced CT abdomen and pelvis imaging show no acute or emergent finding. Above detailed findings are not substantially different from the 2019 comparison. Full assessment is limited is the absence of IV contrast.
[2020-08-18] MEDS ORDERED: NA CHLORIDE 0.9% 250 ML ONE ×2 (20:17→21:27)
[2020-08-18] MEDS ORDERED: KCL 20 MEQ/100 mL IVPB 20 MEQ/100 ML BAG IV ONE (20:17)
[2020-08-18 22:04] LABS: Urine Blood NEGATIVE (NEG); Urine Glucose NEGATIVE (NEG); Urine Protein 1+ (NEG); Urine Specific Gravity >1.030 (1.005-1.030); Urine pH 5.5 (5.0-7.0)
[2020-08-18 22:09] LABS: Urine Bacteria 20-50 /HPF (<20); Urine Mucus 2+ /HPF (NONE SEEN); Urine RBC <5 /HPF (NONE SEEN); Urine Urothelial Cells <5 /HPF (NONE SEEN)
--- NOTE | 2020-08-18 22:22 | ER ---
Nurse's Notes [facility] Name: Yady Diggs Age: 85 yrs Sex: Female : 1935 Arrival Date: 08/18/2020 Time: 15:14 Bed 7 Private MD: Lula Pena C Diagnosis: Nausea and vomiting;Hiatal Hernia;Weakness-general Presentation: 08/18 15:24 Chief complaint: Patient states: Vomiting every day for 6 days. Had fallen the day ll1 before, and got checked at [place]. When she started taking the pain pills, she started N/V. L hand, both knees, R elbow hurt from fall last week. No head injury or LOC. Coronavirus screen: Client denies travel out of the [place] in the last 14 days. At this time, the client does not indicate any symptoms associated with coronavirus-19. Ebola Screen: Patient denies travel to an Ebola-affected area in the 21 days before illness onset. Initial Sepsis Screen: Does the patient meet any 2 criteria? No. Patient's initial sepsis screen is negative. Does the patient have a suspected source of infection? Yes: Other: N/V. Risk Assessment: Do you want to hurt yourself or someone else? Patient reports no desire to harm self or others. Onset of symptoms was August 12, 2020. 15:24 Method Of Arrival: Wheelchair ll1 15:24 Acuity: NILAY 3 ll1 Triage Assessment: 15:28 General: Appears uncomfortable, ill, Behavior is calm, cooperative, appropriate for ll1 age. Pain: Complains of pain in L thumb, both knees, R elbow Quality of pain is described as aching. Neuro: No deficits noted. Cardiovascular: No deficits noted. Respiratory: No deficits noted. GI: Abdomen is flat, Bowel sounds present X 4 quads. Abd is soft and non tender Reports nausea, vomiting. Musculoskeletal: Circulation, motion, and sensation intact. Capillary refill Reports pain in L thumb, both knees, and R elbow. Injury Description: Bruise fall 1 week ago. Historical: - Allergies: 15:28 adhesive tape; ll1 15:28 Iodine; ll1 15:28 Morphine; ll1 - PMHx: 15:28 GERD; High Cholesterol; Hypertension; Glaucoma; Hypothyroidism; neuropathy; ll1 - PSHx: 15:28 Cholecystectomy; Hernia repair; Tonsillectomy; small bowel resection; Knee surgery; ll1 Hysterectomy; Appendectomy; adhesions rermoved; - Immunization history:: Client reports receiving the 2nd dose of the Covid vaccine, Flu vaccine is up to date. - Social history:: Smoking status: Patient denies any tobacco usage or history of. Screenin:40 Abuse screen: Denies threats or abuse. Denies injuries from another. Nutritional hb screening: No deficits noted. Tuberculosis screening: No symptoms or risk factors identified. Fall Risk Total Smith Fall Scale indicates Low Risk Score (25-44 pts). Fall prevention measures have been instituted. Side Rails Up X 2 Frequent Obs/Assesments occuring Family Present and informed to notify staff if they need to leave bedside As available Patient and Family Educated on Fall Prevention Program and strategies. Assessment: 17:40 General: Appears in no apparent distress. Behavior is calm, cooperative. Pain: Pain hb currently is 8 out of 10 on a pain scale. Neuro: Level of Consciousness is awake, alert, obeys commands, Oriented to person, place, situation. Cardiovascular: Capillary refill < 3 seconds Patient's skin is warm and dry. Respiratory: Respiratory effort is even, unlabored, Respiratory pattern is regular, symmetrical. GI: Reports nausea, vomiting. : No signs and/or symptoms were reported regarding the genitourinary system. EENT: No signs and/or symptoms were reported regarding the EENT system. Derm: Skin is pink, warm \T\ dry. Musculoskeletal: Reports left hand pain, bilateral knee pain, bruising noted to left hand and bilateral knees, moderate swelling noted to left knee, mild swelling noted to right knee. 18:19 Reassessment: Patient appears in no apparent distress at this time. Patient and/or hb family updated on plan of care and expected duration. Pain level reassessed. Patient is alert, oriented x 3, equal unlabored respirations, skin warm/dry/pink. Vital Signs: 15:24 BP 188 / 107; Pulse 68; Resp 18; Temp 97.5; Pulse Ox 100% ; Weight 65.77 kg; Height 5 ll1 ft. 1 in. (154.94 cm); Pain 10/10; 18:19 BP 180 / 70; Pulse 59; Resp 19; Pulse Ox 98% on R/A; hb 15:24 Body Mass Index 27.40 (65.77 kg, 154.94 cm) ll1 ED Course: 15:14 Patient arrived in ED. mr 15:14 Lula Pena MD is Private Physician. mr 15:27 Triage completed. ll1 15:28 Arm band placed on. ll1 17:04 Gio Siddiqui PA is PHCP. cp 17:05 Roberto Medrano MD is Attending Physician. cp 17:16 Viki Linda RN is Primary Nurse. hb 17:38 Inserted saline lock: 20 gauge in left antecubital area, using aseptic technique. Blood hb collected. 17:40 Patient has correct armband on for positive identification. Bed in low position. Call hb light in reach. Side rails up X2. 17:47 XRAY Chest (1 view) In Process Unspecified. EDMS 17:54 CT Head C Spine In Process Unspecified. EDMS 19:11 Abdomen In Process Unspecified. EDMS 22:20 Lula Pena MD is Referral Physician. cp 22:46 No provider procedures requiring assistance completed. IV discontinued, intact, rv bleeding controlled, No redness/swelling at site. Pressure dressing applied. Administered Medications: 17:39 Drug: Zofran (Ondansetron) 4 mg Route: IVP; Site: left antecubital; hb 18:11 Follow up: Response: No adverse reaction hb 17:39 Drug: Pepcid 20 mg Route: IVP; Site: left antecubital; hb 18:11 Follow up: Response: No adverse reaction hb 18:48 Drug: Potassium Effervescent Tablet 50 mEq Route: PO; hb 22:48 Follow up: Response: No adverse reaction rv 18:49 Drug: Magnesium Sulfate 1 grams Route: IVPB; Infused Over: 1 hrs; Site: left hb antecubital; 22:48 Follow up: Response: No adverse reaction; IV Status: Completed infusion; IV Intake: rv 100ml 19:48 Drug: Zofran (Ondansetron) 4 mg Route: IVP; Site: left antecubital; rv 22:47 Follow up: Response: No adverse reaction rv 20:16 Drug: NS 0.9% 250 ml Route: IV; Rate: calculated rate; Site: left antecubital; rv 22:47 Follow up: IV Status: Completed infusion; IV Intake: 250ml rv 20:17 Drug: Potassium Chloride 10 mEq Route: IV; Rate: calculated rate; Site: left rv antecubital; 22:48 Follow up: IV Status: Completed infusion rv 21:14 Drug: NS 0.9% 250 ml Route: IV; Rate: bolus; Site: left antecubital; 22:47 Follow up: IV Status: Completed infusion; IV Intake: 250ml rv Intake: 22:47 IV: 250ml; Total: 250ml. rv 22:47 IV: 250ml; Total: 500ml. rv 22:48 IV: 100ml; Total: 600ml. rv Outcome: 22:22 Discharge ordered by MD. cp 22:46 Discharged to home via wheelchair, with family. rv 22:46 Condition: good 22:46 Discharge instructions given to patient, Instructed on discharge instructions, follow up and referral plans. medication usage, Demonstrated understanding of instructions, follow-up care, medications, Prescriptions given X 1. 22:47 Patient left the ED. rv Signatures: Dispatcher [employer] EDID Valeria Lazcano Corey, LILLIAM PA Viki Lopes, RN Cachorro Fletcher, RN JAM Los Carey RN RN rv Lewis, Lynsay, RN RN ll1
--- NOTE | 2020-08-18 22:23 | EDPHYS ---
Physician Documentation [facility] Name: Yady Diggs Age: 85 yrs Sex: Female : 1935 Arrival Date: 08/18/2020 Time: 15:14 Bed 7 Private MD: Lula Pena C ED Physician Roberto Medrano HPI: 08/18 17:35 This 85 yrs old Female presents to ER via Wheelchair with complaints of Fall cp Injury, Vomiting. 17:35 The patient presents to the emergency department with nausea, that is moderate, cp vomiting, that is intermittent, abdominal pain, of the mid abdomen. 17:35 Onset: The symptoms/episode began/occurred 6 day(s) ago. Possible causes: unknown. cp Associated signs and symptoms: Pertinent positives: general weakness. 17:35 Patient reports sustaining injuries to left hand and bilateral knees from fall last cp week. Patient reports being seen and evaluated in [place] ED after fall. Patient nausea/vomiting and general weakness since fall. Historical: - Allergies: 15:28 adhesive tape; ll1 15:28 Iodine; ll1 15:28 Morphine; ll1 - PMHx: 15:28 GERD; High Cholesterol; Hypertension; Glaucoma; Hypothyroidism; neuropathy; ll1 - PSHx: 15:28 Cholecystectomy; Hernia repair; Tonsillectomy; small bowel resection; Knee surgery; ll1 Hysterectomy; Appendectomy; adhesions rermoved; - Immunization history:: Client reports receiving the 2nd dose of the Covid vaccine, Flu vaccine is up to date. - Social history:: Smoking status: Patient denies any tobacco usage or history of. ROS: 17:40 Constitutional: Positive for poor PO intake, Negative for body aches, chills, fever. cp 17:40 Eyes: Negative for injury, pain, redness, and discharge. cp 17:40 ENT: Negative for ear pain, sore throat, difficulty swallowing, difficulty handling secretions. 17:40 Cardiovascular: Negative for chest pain. 17:40 Respiratory: Negative for cough, shortness of breath, wheezing. 17:40 Abdomen/GI: Positive for abdominal pain, nausea and vomiting, Negative for diarrhea, constipation, hematemesis, black/tarry stool, rectal bleeding. 17:40 : Negative for urinary symptoms. 17:40 Neuro: Positive for weakness, Negative for altered mental status, headache. 17:40 All other systems are negative. Exam: 17:44 Constitutional: The patient appears in no acute distress, alert, awake, cp non-diaphoretic, non-toxic, well developed, well nourished. 17:44 Head/Face: Normocephalic, atraumatic. cp 17:44 Eyes: Periorbital structures: appear normal, Pupils: equal, round, and reactive to light and accomodation, Extraocular movements: intact throughout, Conjunctiva: normal, no exudate, no injection, Sclera: no appreciated abnormality, Lids and lashes: appear normal, bilaterally. 17:44 ENT: External ear(s): are unremarkable, Nose: is normal, Posterior pharynx: Airway: no evidence of obstruction, patent. 17:44 Neck: C-spine: vertebral tenderness, is not appreciated, crepitus, is not appreciated, ROM/movement: is normal, is supple, without pain, no range of motions limitations, no meningismus, no nuchal rigidity. 17:44 Chest/axilla: Inspection: normal, Palpation: is normal, no crepitus, no tenderness. 17:44 Cardiovascular: Rate: normal, Rhythm: regular, Edema: is not appreciated, JVD: is not appreciated. 17:44 Respiratory: the patient does not display signs of respiratory distress, Respirations: normal, no use of accessory muscles, no retractions, labored breathing, is not present, Breath sounds: are clear throughout, no decreased breath sounds, no stridor, no wheezing. 17:44 Abdomen/GI: Inspection: abdomen appears normal, Bowel sounds: active, all quadrants, Palpation: soft, in all quadrants, mild abdominal tenderness, in the mid abdomen, rebound tenderness, is not appreciated, involuntary guarding, is not appreciated. 17:44 Back: CVA tenderness, is absent, vertebral tenderness, is not appreciated. 17:44 Musculoskeletal/extremity: Extremities: grossly normal except: noted in the left hand: ecchymosis, pain, swelling, tenderness, noted in the right knee and left knee: tenderness, no evidence of decreased ROM, deformity. 17:44 Neuro: Orientation: to person, place \\T\\ time. Mentation: is normal, Motor: moves all fours, strength is normal. 17:46 ECG was reviewed by the Attending Physician. cp Vital Signs: 15:24 BP 188 / 107; Pulse 68; Resp 18; Temp 97.5; Pulse Ox 100% ; Weight 65.77 kg; Height 5 ll1 ft. 1 in. (154.94 cm); Pain 10/10; 18:19 BP 180 / 70; Pulse 59; Resp 19; Pulse Ox 98% on R/A; hb 15:24 Body Mass Index 27.40 (65.77 kg, 154.94 cm) ll1 MDM: 17:17 Patient medically screened. cp 18:00 Differential diagnosis: gastritis, diverticulitis, viral gastroenteritis, cp gastroenteritis, bowel obstruction, ileus, dehydration, UTI. 22:20 Data reviewed: vital signs, nurses notes, lab test result(s), EKG, radiologic studies, cp CT scan, plain films. 22:21 Counseling: I had a detailed discussion with the patient and/or guardian regarding: the cp historical points, exam findings, and any diagnostic results supporting the discharge/admit diagnosis, lab results, radiology results, to return to the emergency department if symptoms worsen or persist or if there are any questions or concerns that arise at home. 22:21 Response to treatment: the patient's symptoms have markedly improved after treatment, cp patient is well hydrated. nausea improved and vomiting resolved. Patient reports she is feeling better, and as a result, I will discharge patient. 08/18 17:15 Order name: Basic Metabolic Panel; Complete Time: 18:31 cp 08/18 18:31 Interpretation: Normal except: K 3.2; CL 108; GFR 66. 08/18 17:15 Order name: CBC with Diff; Complete Time: 18:31 cp 08/18 17:15 Order name: LFT's; Complete Time: 18:31 cp 08/18 20:19 Interpretation: Normal except: BILIT 1.5; BILID 0.4. cp 08/18 17:15 Order name: Magnesium; Complete Time: 18:31 cp 08/18 18:33 Interpretation: Abnormal: MG 1.6. cp 08/18 17:15 Order name: NT PRO-BNP; Complete Time: 18:31 cp 08/18 17:15 Order name: PT-INR; Complete Time: 18:31 cp 08/18 17:15 Order name: Troponin (emerg Dept Use Only); Complete Time: 18:31 cp 08/18 20:19 Interpretation: TROPED 0.02; Reviewed. 08/18 17:17 Order name: Urine Microscopic Only 08/18 17:17 Order name: Urine Microscopic Only; Complete Time: 22:38 EDMS 08/18 19:04 Order name: COVID-19 : Document "Date of Symptom Onset" if Symptomatic. 08/18 21:24 Order name: SARS-COV-2 RT PCR; Complete Time: 21:38 EDMS 08/18 21:30 Order name: Urine Dipstick--Ancillary (enter results) mw2 08/18 21:31 Order name: Urine Dipstick-Ancillary; Complete Time: 22:38 EDMS 08/18 17:15 Order name: CT Head C Spine; Complete Time: 18:31 cp 08/18 17:15 Order name: XRAY Chest (1 view); Complete Time: 18:31 cp 08/18 17:15 Order name: EKG; Complete Time: 17:16 cp 08/18 17:15 Order name: Cardiac monitoring; Complete Time: 17:39 cp 08/18 17:15 Order name: EKG - Nurse/Tech; Complete Time: 17:39 cp 08/18 18:51 Order name: CT Abd/Pelvis - Without Contrast 08/18 18:52 Order name: Abdomen ; Complete Time: 20:17 EDNE 08/18 22:09 Order name: Urine Culture [facility] 08/18 17:15 Order name: IV Saline Lock; Complete Time: 17:39 cp 08/18 17:15 Order name: Labs collected and sent; Complete Time: 17:40 cp 08/18 17:15 Order name: O2 Per Protocol; Complete Time: 17:40 cp 08/18 17:15 Order name: O2 Sat Monitoring; Complete Time: 17:40 cp 08/18 17:17 Order name: Urine Dipstick-Ancillary (obtain specimen); Complete Time: 21:22 cp 08/18 20:20 Order name: PO challenge; Complete Time: 21:27 cp 08/18 20:41 Order name: Cath; Complete Time: 21:14 cp EC:46 Rate is 59 beats/min. Rhythm is regular. IN interval is normal. QRS interval is cp prolonged at 112 msec. QT interval is normal. T waves are Inverted in leads III, V1. Interpreted by me. Reviewed by me. Administered Medications: 17:39 Drug: Zofran (Ondansetron) 4 mg Route: IVP; Site: left antecubital; hb 18:11 Follow up: Response: No adverse reaction hb 17:39 Drug: Pepcid 20 mg Route: IVP; Site: left antecubital; hb 18:11 Follow up: Response: No adverse reaction hb 18:48 Drug: Potassium Effervescent Tablet 50 mEq Route: PO; hb 22:48 Follow up: Response: No adverse reaction rv 18:49 Drug: Magnesium Sulfate 1 grams Route: IVPB; Infused Over: 1 hrs; Site: left hb antecubital; 22:48 Follow up: Response: No adverse reaction; IV Status: Completed infusion; IV Intake: rv 100ml 19:48 Drug: Zofran (Ondansetron) 4 mg Route: IVP; Site: left antecubital; rv 22:47 Follow up: Response: No adverse reaction rv 20:16 Drug: NS 0.9% 250 ml Route: IV; Rate: calculated rate; Site: left antecubital; rv 22:47 Follow up: IV Status: Completed infusion; IV Intake: 250ml rv 20:17 Drug: Potassium Chloride 10 mEq Route: IV; Rate: calculated rate; Site: left rv antecubital; 22:48 Follow up: IV Status: Completed infusion rv 21:14 Drug: NS 0.9% 250 ml Route: IV; Rate: bolus; Site: left antecubital; wh 22:47 Follow up: IV Status: Completed infusion; IV Intake: 250ml rv Disposition: 08/19 21:47 Available for consultation at all times. Did not see or evaluate patient unless ps1 otherwise noted. . Disposition: 08/18/20 22:22 Discharged to Home. Impression: Nausea and vomiting, Hiatal Hernia, Weakness - general. - Condition is Stable. - Discharge Instructions: Hiatal Hernia, Nausea and Vomiting, Adult, Weakness. - Prescriptions for Zofran 4 mg Oral Tablet - take 1 tablet by ORAL route every 12 hours As needed; 20 tablet. - Medication Reconciliation Form, Thank You Letter, Antibiotic Education, Prescription Opioid Use form. - Follow up: Lula Pena MD; When: 1 - 2 days; Reason: Recheck today's complaints. - Problem is new. - Symptoms have improved. Signatures: Dispatcher [employer] EDMS Gio Siddiqui PA PA cp Baxter, Heather, RN RN Cachorro Valencia RN RN Roberto Medrano MD MD ps1 Vicente, Ronaldo, RN RN rv Krupa Cohn RN RN ll1 Corrections: (The following items were deleted from the chart) 08/18 20:36 19:04 CORONAVIRUS ordered. EDMS EDMS 22:47 22:22 08/18/2020 22:22 Discharged to Home. Impression: Nausea and vomiting; Hiatal rv Hernia; Weakness - general. Condition is Stable. Forms are Medication Reconciliation Form, Thank You Letter, Antibiotic Education, Prescription Opioid Use. Follow up: A Becky; When: 1 - 2 days; Reason: Recheck today's complaints. Problem is new. Symptoms have improved. cp
[2020-08-18 22:57] VITALS: TEMP 97.5
[2020-08-18 22:58] VITALS: BP 180/70; O2SAT 98
== END 2020-08-18 22:47 | disposition home or self-care (01) ==
LOC: ER 15:04
DX: R11.2 Nausea with vomiting, unspecified (principal); K44.9 Diaphragmatic hernia without obstruction or gangrene; R53.1 Weakness; K21.9 Gastro-esophageal reflux disease without esophagitis; E78.00 Pure hypercholesterolemia, unspecified; Z20.822 Contact with and (suspected) exposure to COVID-19; I10 Essential (primary) hypertension; H40.9 Unspecified glaucoma; E03.9 Hypothyroidism, unspecified; G62.9 Polyneuropathy, unspecified
CPT/HCPCS: 93005; 87088; 85025; 87086; 80048; 36415; 83735; 85610; 80076; 84484; 83880; 70450; 72125; 74176; 71045; U0003; J3480; J3475; J7050 ×2; J2405 ×2; 81003; 81015; 96365; 96366; 96367; 96375; 99284

== ENCOUNTER 2021-06-19 09:52 | Emergency (ER) | payer OTHER, BC ==
--- OUTSIDE RECORDS SUMMARY | 2021-06-19 09:59 | XMS REPORT | Continuity of Care Document ---
:1935 Author Organization [facility] t Address [address] [place] [address] Care Team Providers Name Role Phone Deuce PEREZ Primary Care Physician Unavailable Mark JOHNSON Attending Clinician Unavailable Nolan MUD MIXER OPERATOR, K Attending Clinician Unavailable Elizabeth VARGAS, Mark Attending Clinician Korey Treadwell PT Attending Clinician Unavailable Joshua PT, Lula Attending Clinician Unavailable Jay PT, G Attending Clinician Unavailable Eusebia PT, T Attending Clinician Unavailable Paloma DELGADILLO Attending Clinician Unavailable Leona PAC, S Attending Clinician MAMIE SINGER Attending Clinician Unavailable Jose A Attending Clinician Unavailable Berta Cee Attending Clinician [phone] Mark JOHNSON Admitting Clinician Unavailable Jose A Admitting Clinician Unavailable Payers Payer Name Policy Type Policy Number Effective Date Expiration Date S preet MEDICARE PART A \T\ [id number] 2001 B 00:00:00 BCBS TRADITIONAL [id number] 2017 00:00:00 [place] [id number] 2001 [place] 00[place] [id number] 2017 [place] ([place]ICARE 00:00:00 SUPPLEMENT) Problems Condition Condition Condition Status Onset Resolution Last Treating Co mments Source Name Details Category Date Date Treatment Clinician Date Vomiting Vomiting Disease Active 2020-06 Unive rs 0-01 ity of 00:00: [place] 00 Medical Branch Primary Primary Disease Active Overview: Univ ers osteoarthr osteoarthr 12-20 Formatt[place] ity of itis of itis of 00:00: g of this [place] right right 00 note Medical shoulder shoulder might be Bran ch different from the original. Added automatic ally from request for surgery [id number] Allergies, Adverse Reactions, Alerts Allergy Allergy Status Severity Reaction(s) Onset Inactive Treating Comm ents Source Name Type Date Date Clinician Morphine Propensi Active Nausea Only U nivers ty to 07-11 ity of adverse 00:00: [place] reaction 00 Medical s Branch MORPHINE DRUG Active N/V Univers INGREDI 07-11 ity of 00:00: [place] 00 Medical Branch Social History Social Habit Start Date Stop Date Quantity Comments Source Exposure to Not sure [facility] SARS-CoV-2 [facility] (event) Branch Alcohol intake 2021-03-25 2021-03-25 Current drinker Unive rsity of 00:00:00 00:00:00 of alcohol [facility] (finding) [place] Tobacco Comment 2021-03-04 2021-03-04 pt quit 50 yrs Unive rsity of 00:00:00 00:00:00 ago [facility] Tobacco use and 2017-11-08 2017-11-08 Never used Universit y of exposure 00:00:00 00:00:00 [facility] Sex [birth year] At [birth year] Universit y of 00:00:00 00:00:00 [facility] Smoking Status Start Date Stop Date Source Former smoker 2017-11-08 00:00:00 2017-11-08 00:00:00 Universi ty of [facility] Medications Ordered Filled Start Stop Current Ordering Indication Dosage Frequency Signature Comments Components Source Medication Medication Date Date Medication? Clinician (SIG) Name Name traMADoL 50 2020-06 Yes 4647 50mg Take 1 Univ ers mg tablet 0-22 tablet by ity o f 00:00: mouth [place] 00 every 4 Medical (four) Branch hours as needed for Pain (scale 7-10). Indication s: acute pain traMADoL 50 2020-06 Yes 4647 50mg Take 1 Univ ers mg tablet 0-22 tablet by ity o f 00:00: mouth 00 every 4 Medical (four) Branch hours as needed for Pain (scale 7-10). Indication s: acute pain traMADoL 50 2020-06 Yes 4647 50mg Take 1 Univ ers mg tablet 0-22 tablet by ity o f 00:00: mouth [place] 00 every 4 Medical (four) Branch hours as needed for Pain (scale 7-10). Indication s: acute pain traMADoL 50 2020-06 Yes 4647 50mg Take 1 Univ ers mg tablet 0-22 tablet by ity o f 00:00: mouth [place] 00 every 4 Medical (four) Branch hours as needed for Pain (scale 7-10). Indication s: acute pain traMADoL 50 2020-06 Yes 4647 50mg Take 1 Univ ers mg tablet 0-22 tablet by ity o f 00:00: mouth [place] 00 every 4 Medical (four) Branch hours as needed for Pain (scale 7-10). Indication s: acute pain traMADoL 50 2020-06 Yes 4647 50mg Take 1 Univ ers mg tablet 0-22 tablet by ity o f 00:00: mouth [place] 00 every 4 Medical (four) Branch hours as needed for Pain (scale 7-10). Indication s: acute pain traMADoL 50 2020-06 Yes 4647 50mg Take 1 Univ ers mg tablet 0-22 tablet by ity o f 00:00: mouth [place] 00 every 4 Medical (four) Branch hours as needed for Pain (scale 7-10). Indication s: acute pain traMADoL 50 2020-06 Yes 4647 50mg Take 1 Univ ers mg tablet 0-22 tablet by ity o f 00:00: mouth [place] 00 every 4 Medical (four) Branch hours as needed for Pain (scale 7-10). Indication s: acute pain traMADoL 50 2020-06 Yes 4647 50mg Take 1 Univ ers mg tablet 0-22 tablet by ity o f 00:00: mouth [place] 00 every 4 Medical (four) Branch hours as needed for Pain (scale 7-10). Indication s: acute pain traMADoL 50 2020-06 Yes 4647 50mg Take 1 Univ ers mg tablet 0-22 tablet by ity o f 00:00: mouth [place] 00 every 4 Medical (four) Branch hours as needed for Pain (scale 7-10). Indication s: acute pain traMADoL 50 2020-06 Yes 4647 50mg Take 1 Univ ers mg tablet 0-22 tablet by ity o f 00:00: mouth [place] 00 every 4 Medical (four) Branch hours as needed for Pain (scale 7-10). Indication s: acute pain traMADoL 50 2020-06 Yes 4647 50mg Take 1 Univ ers mg tablet 0-22 tablet by ity o f 00:00: mouth [place] 00 every 4 Medical (four) Branch hours as needed for Pain (scale 7-10). Indication s: acute pain traMADoL 50 2020-06 Yes 4647 50mg Take 1 Univ ers mg tablet 0-22 tablet by ity o f 00:00: mouth [place] 00 every 4 Medical (four) Branch hours as needed for Pain (scale 7-10). Indication s: acute pain traMADoL 50 2020-06 Yes 4647 50mg Take 1 Univ ers mg tablet 0-22 tablet by ity o f 00:00: mouth [place] 00 every 4 Medical (four) Branch hours as needed for Pain (scale 7-10). Indication s: acute pain traMADoL 50 2020-06 Yes 4647 50mg Take 1 Univ ers mg tablet 0-22 tablet by ity o f 00:00: mouth [place] 00 every 4 Medical (four) Branch hours as needed for Pain (scale 7-10). Indication s: acute pain traMADoL 50 2020-06 Yes 4647 50mg Take 1 Univ ers mg tablet 0-22 tablet by ity o f 00:00: mouth [place] 00 every 4 Medical (four) Branch hours as needed for Pain (scale 7-10). Indication s: acute pain traMADoL 50 2020-06 Yes 4647 50mg Take 1 Univ ers mg tablet 0-22 tablet by ity o f 00:00: mouth [place] 00 every 4 Medical (four) Branch hours as needed for Pain (scale 7-10). Indication s: acute pain traMADoL 50 2020-06 Yes 4647 50mg Take 1 Univ ers mg tablet 0-22 tablet by ity o f 00:00: mouth [place] 00 every 4 Medical (four) Branch hours as needed for Pain (scale 7-10). Indication s: acute pain traMADoL 50 2020-06 Yes 4647 50mg Take 1 Univ ers mg tablet 0-22 tablet by ity o f 00:00: mouth [place] 00 every 4 Medical (four) Branch hours as needed for Pain (scale 7-10). Indication s: acute pain traMADoL 50 2020-06 Yes 4647 50mg Take 1 Univ ers mg tablet 0-22 tablet by ity o f 00:00: mouth [place] 00 every 4 Medical (four) Branch hours as needed for Pain (scale 7-10). Indication s: acute pain traMADoL 50 2020-06 Yes 4647 50mg Take 1 Univ ers mg tablet 0-22 tablet by ity o f 00:00: mouth [place] 00 every 4 Medical (four) Branch hours as needed for Pain (scale 7-10). Indication s: acute pain traMADoL 50 2020-06 Yes 4647 50mg Take 1 Univ ers mg tablet 0-22 tablet by ity o f 00:00: mouth [place] 00 every 4 Medical (four) Branch hours as needed for Pain (scale 7-10). Indication s: acute pain fluticasone 2020-06 Yes 1{puff} Inhale 1 Univers -salmeterol 0-03 Puff once ity of (ADVAIR 13:23: daily as [place] DISKUS) 04 needed. Medical 250-50 Branch mcg/dose inhalation disk Cranberry 2020-06 Yes Take by [facility] Extract 200 0-03 mouth. ity of mg Cap 13:23: [address] omeprazole 2020-06 Yes 20mg Take 20 mg U nivers 20 mg 0-03 by mouth ity of capsule 13:23: daily. [address] brimonidine 2020-06 Yes brimonidin Univers 0.2 % 0-03 e 0.2 % ity of ophthalmic 13:23: eye drops [place] solution [address] [place] [address] latanoprost 2020-06 Yes latanopros Univers , PF, 0.005 0-03 t 0.005 % ity of % Drop 13:23: eye drops [address] fluticasone 2020-06 Yes 1{puff} Inhale 1 Univers -salmeterol 0-03 Puff once ity of (ADVAIR 13:23: daily as [place] DISKUS) 04 needed. Medical 250-50 Branch mcg/dose inhalation disk Cranberry 2020-06 Yes Take by [facility] Extract 200 0-03 mouth. ity of mg Cap 13:23: [address] omeprazole 2020-06 Yes 20mg Take 20 mg U nivers 20 mg 0-03 by mouth ity of capsule 13:23: daily. [address] brimonidine 2020-06 Yes brimonidin Univers 0.2 % 0-03 e 0.2 % ity of ophthalmic 13:23: eye drops [place] [address] [place] [address] latanoprost 2020-06 Yes latanopros Univers , PF, 0.005 0-03 t 0.005 % ity of % Drop 13:23: eye drops [address] fluticasone 2020-06 Yes 1{puff} Inhale 1 Univers -salmeterol 0-03 Puff once ity of (ADVAIR 13:23: daily as [place] DISKUS) 04 needed. [facility] 250-50 Branch mcg/dose inhalation disk Cranberry 2020-06 Yes Take by [facility] ers Extract 200 0-03 mouth. ity of mg Cap 13:23: [address] omeprazole 2020-06 Yes 20mg Take 20 mg U nivers 20 mg 0-03 by mouth ity of capsule 13:23: daily. [address] brimonidine 2020-06 Yes brimonidin Univers 0.2 % 0-03 e 0.2 % ity of ophthalmic 13:23: eye drops [place] solution [address] [place] [address] latanoprost 2020-06 Yes latanopros Univers , PF, 0.005 0-03 t 0.005 % ity of % Drop 13:23: eye drops [address] fluticasone 2020-06 Yes 1{puff} Inhale 1 Univers -salmeterol 0-03 Puff once ity of (ADVAIR 13:23: daily as [place] DISKUS) 04 needed. [facility] [address] Branch mcg/dose inhalation disk Cranberry 2020-06 Yes Take by [facility] ers Extract 200 0-03 mouth. ity of mg Cap 13:23: [address] omeprazole 2020-06 Yes 20mg Take 20 mg U nivers 20 mg 0-03 by mouth ity of capsule 13:23: daily. [address] brimonidine 2020-06 Yes brimonidin Univers 0.2 % 0-03 e 0.2 % ity of ophthalmic 13:23: eye drops [place] solution [address] [place] [address] latanoprost 2020-06 Yes latanopros Univers , PF, 0.005 0-03 t 0.005 % ity of % Drop 13:23: eye drops [address] fluticasone 2020-06 Yes 1{puff} Inhale 1 Univers -salmeterol 0-03 Puff once ity of (ADVAIR 13:23: daily as [place] DISKUS) 04 needed. Medical 250-50 Branch mcg/dose inhalation disk Cranberry 2020-06 Yes Take by [facility] Extract 200 0-03 mouth. ity of mg Cap 13:23: [address] omeprazole 2020-06 Yes 20mg Take 20 mg U nivers 20 mg 0-03 by mouth ity of capsule 13:23: daily. [address] brimonidine 2020-06 Yes brimonidin Univers 0.2 % 0-03 e 0.2 % ity of ophthalmic 13:23: eye drops [place] solution [facility] latanoprost 2020-06 Yes latanopros Univers , PF, 0.005 0-03 t 0.005 % ity of % Drop 13:23: eye drops [address] fluticasone 2020-06 Yes 1{puff} Inhale 1 Univers -salmeterol 0-03 Puff once ity of (ADVAIR 13:23: daily as [place] DISKUS) 04 needed. Medical 250-50 Branch mcg/dose inhalation disk Cranberry 2020-06 Yes Take by [facility] Extract 200 0-03 mouth. ity of mg Cap 13:23: [address] omeprazole 2020-06 Yes 20mg Take 20 mg U nivers 20 mg 0-03 by mouth ity of capsule 13:23: daily. [address] brimonidine 2020-06 Yes brimonidin Univers 0.2 % 0-03 e 0.2 % ity of ophthalmic 13:23: eye drops [place] solution [facility] Branch latanoprost 2020-06 Yes latanopros Univers , PF, 0.005 0-03 t 0.005 % ity of % Drop 13:23: eye drops [address] fluticasone 2020-06 Yes 1{puff} Inhale 1 Univers -salmeterol 0-03 Puff once ity of (ADVAIR 13:23: daily as [place] DISKUS) 04 needed. Medical 250-50 Branch mcg/dose inhalation disk Cranberry 2020-06 Yes Take by [facility] Extract 200 0-03 mouth. ity of mg Cap 13:23: [address] omeprazole 2020-06 Yes 20mg Take 20 mg U nivers 20 mg 0-03 by mouth ity of capsule 13:23: daily. [address] brimonidine 2020-06 Yes brimonidin Univers 0.2 % 0-03 e 0.2 % ity of ophthalmic 13:23: eye drops [place] solution [address] [place] [address] latanoprost 2020-06 Yes latanopros Univers , PF, 0.005 0-03 t 0.005 % ity of % Drop 13:23: eye drops [address] fluticasone 2020-06 Yes 1{puff} Inhale 1 Univers -salmeterol 0-03 Puff once ity of (ADVAIR 13:23: daily as [place] DISKUS) 04 needed. Medical 250-50 Branch mcg/dose inhalation disk Cranberry 2020-06 Yes Take by [facility] Extract 200 0-03 mouth. ity of mg Cap 13:23: [address] omeprazole 2020-06 Yes 20mg Take 20 mg U nivers 20 mg 0-03 by mouth ity of capsule 13:23: daily. [address] brimonidine 2020-06 Yes brimonidin Univers 0.2 % 0-03 e 0.2 % ity of ophthalmic 13:23: eye drops [place] solution [address] [place] [address] latanoprost 2020-06 Yes latanopros Univers , PF, 0.005 0-03 t 0.005 % ity of % Drop 13:23: eye drops [address] fluticasone 2020-06 Yes 1{puff} Inhale 1 Univers -salmeterol 0-03 Puff once ity of (ADVAIR 13:23: daily as [place] DISKUS) 04 needed. Medical 250-50 Branch mcg/dose inhalation disk Cranberry 2020-06 Yes Take by [facility] Extract 200 0-03 mouth. ity of mg Cap 13:23: [address] omeprazole 2020-06 Yes 20mg Take 20 mg U nivers 20 mg 0-03 by mouth ity of capsule 13:23: daily. [address] brimonidine 2020-06 Yes brimonidin Univers 0.2 % 0-03 e 0.2 % ity of ophthalmic 13:23: eye drops [place] solution [address] [place] [address] latanoprost 2020-06 Yes latanopros Univers , PF, 0.005 0-03 t 0.005 % ity of % Drop 13:23: eye drops [address] fluticasone 2020-06 Yes 1{puff} Inhale 1 Univers -salmeterol 0-03 Puff once ity of (ADVAIR 13:23: daily as [place] DISKUS) 04 needed. [facility] 250-50 Branch mcg/dose inhalation disk Cranberry 2020-06 Yes Take by [facility] ers Extract 200 0-03 mouth. ity of mg Cap 13:23: [address] omeprazole 2020-06 Yes 20mg Take 20 mg U nivers 20 mg 0-03 by mouth ity of capsule 13:23: daily. [address] brimonidine 2020-06 Yes brimonidin Univers 0.2 % 0-03 e 0.2 % ity of ophthalmic 13:23: eye drops [place] solution [address] [place] [address] latanoprost 2020-06 Yes latanopros Univers , PF, 0.005 0-03 t 0.005 % ity of % Drop 13:23: eye drops [address] fluticasone 2020-06 Yes 1{puff} Inhale 1 Univers -salmeterol 0-03 Puff once ity of (ADVAIR 13:23: daily as [place] DISKUS) 04 needed. [facility] [address] Branch mcg/dose inhalation disk Cranberry 2020-06 Yes Take by [facility] ers Extract 200 0-03 mouth. ity of mg Cap 13:23: [address] omeprazole 2020-06 Yes 20mg Take 20 mg U nivers 20 mg 0-03 by mouth ity of capsule 13:23: daily. [address] brimonidine 2020-06 Yes brimonidin Univers 0.2 % 0-03 e 0.2 % ity of ophthalmic 13:23: eye drops [place] solution [address] [place] [address] latanoprost 2020-06 Yes latanopros Univers , PF, 0.005 0-03 t 0.005 % ity of % Drop 13:23: eye drops [address] fluticasone 2020-06 Yes 1{puff} Inhale 1 Univers -salmeterol 0-03 Puff once ity of (ADVAIR 13:23: daily as [place] DISKUS) 04 needed. Medical 250-50 Branch mcg/dose inhalation disk Cranberry 2020-06 Yes Take by [facility] Extract 200 0-03 mouth. ity of mg Cap 13:23: [address] omeprazole 2020-06 Yes 20mg Take 20 mg U nivers 20 mg 0-03 by mouth ity of capsule 13:23: daily. [address] brimonidine 2020-06 Yes brimonidin Univers 0.2 % 0-03 e 0.2 % ity of ophthalmic 13:23: eye drops [place] solution [facility] Branch latanoprost 2020-06 Yes latanopros Univers , PF, 0.005 0-03 t 0.005 % ity of % Drop 13:23: eye drops [address] fluticasone 2020-06 Yes 1{puff} Inhale 1 Univers -salmeterol 0-03 Puff once ity of (ADVAIR 13:23: daily as [place] DISKUS) 04 needed. Medical 250-50 Branch mcg/dose inhalation disk Cranberry 2020-06 Yes Take by [facility] Extract 200 0-03 mouth. ity of mg Cap 13:23: [address] omeprazole 2020-06 Yes 20mg Take 20 mg U nivers 20 mg 0-03 by mouth ity of capsule 13:23: daily. [address] brimonidine 2020-06 Yes brimonidin Univers 0.2 % 0-03 e 0.2 % ity of ophthalmic 13:23: eye drops [place] solution [facility] latanoprost 2020-06 Yes latanopros Univers , PF, 0.005 0-03 t 0.005 % ity of % Drop 13:23: eye drops [address] fluticasone 2020-06 Yes 1{puff} Inhale 1 Univers -salmeterol 0-03 Puff once ity of (ADVAIR 13:23: daily as [place] DISKUS) 04 needed. Medical 250-50 Branch mcg/dose inhalation disk Cranberry 2020-06 Yes Take by [facility] Extract 200 0-03 mouth. ity of mg Cap 13:23: [address] omeprazole 2020-06 Yes 20mg Take 20 mg U nivers 20 mg 0-03 by mouth ity of capsule 13:23: daily. [address] brimonidine 2020-06 Yes brimonidin Univers 0.2 % 0-03 e 0.2 % ity of ophthalmic 13:23: eye drops [place] [address] [place] [address] latanoprost 2020-06 Yes latanopros Univers , PF, 0.005 0-03 t 0.005 % ity of % Drop 13:23: eye drops [address] fluticasone 2020-06 Yes 1{puff} Inhale 1 Univers -salmeterol 0-03 Puff once ity of (ADVAIR 13:23: daily as [place] DISKUS) 04 needed. Medical 250-50 Branch mcg/dose inhalation disk Cranberry 2020-06 Yes Take by [facility] Extract 200 0-03 mouth. ity of mg Cap 13:23: [address] omeprazole 2020-06 Yes 20mg Take 20 mg U nivers 20 mg 0-03 by mouth ity of capsule 13:23: daily. [address] brimonidine 2020-06 Yes brimonidin Univers 0.2 % 0-03 e 0.2 % ity of ophthalmic 13:23: eye drops [place] solution [address] [place] [address] latanoprost 2020-06 Yes latanopros Univers , PF, 0.005 0-03 t 0.005 % ity of % Drop 13:23: eye drops [address] fluticasone 2020-06 Yes 1{puff} Inhale 1 Univers -salmeterol 0-03 Puff once ity of (ADVAIR 13:23: daily as [place] DISKUS) 04 needed. Medical 250-50 Branch mcg/dose inhalation disk Cranberry 2020-06 Yes Take by Univ ers Extract 200 0-03 mouth. ity of mg Cap 13:23: [address] omeprazole 2020-06 Yes 20mg Take 20 mg U nivers 20 mg 0-03 by mouth ity of capsule 13:23: daily. [address] brimonidine 2020-06 Yes brimonidin Univers 0.2 % 0-03 e 0.2 % ity of ophthalmic 13:23: eye drops [place] solution [address] [place] [address] latanoprost 2020-06 Yes latanopros Univers , PF, 0.005 0-03 t 0.005 % ity of % Drop 13:23: eye drops [address] fluticasone 2020-06 Yes 1{puff} Inhale 1 Univers -salmeterol 0-03 Puff once ity of (ADVAIR 13:23: daily as [place] DISKUS) 04 needed. Medical 250-50 Branch mcg/dose inhalation disk Cranberry 2020-06 Yes Take by [facility] ers Extract 200 0-03 mouth. ity of mg Cap 13:23: [address] omeprazole 2020-06 Yes 20mg Take 20 mg U nivers 20 mg 0-03 by mouth ity of capsule 13:23: daily. [address] brimonidine 2020-06 Yes brimonidin Univers 0.2 % 0-03 e 0.2 % ity of ophthalmic 13:23: eye drops [place] solution [address] [place] [address] latanoprost 2020-06 Yes latanopros Univers , PF, 0.005 0-03 t 0.005 % ity of % Drop 13:23: eye drops [address] fluticasone 2020-06 Yes 1{puff} Inhale 1 Univers -salmeterol 0-03 Puff once ity of (ADVAIR 13:23: daily as [place] DISKUS) 04 needed. Medical 250-50 Branch mcg/dose inhalation disk Cranberry 2020-06 Yes Take by [facility] ers Extract 200 0-03 mouth. ity of mg Cap 13:23: [address] omeprazole 2020-06 Yes 20mg Take 20 mg U nivers 20 mg 0-03 by mouth ity of capsule 13:23: daily. [address] brimonidine 2020-06 Yes brimonidin Univers 0.2 % 0-03 e 0.2 % ity of ophthalmic 13:23: eye drops [place] solution [address] [place] [address] latanoprost 2020-06 Yes latanopros Univers , PF, 0.005 0-03 t 0.005 % ity of % Drop 13:23: eye drops [address] fluticasone 2020-06 Yes 1{puff} Inhale 1 Univers -salmeterol 0-03 Puff once ity of (ADVAIR 13:23: daily as [place] DISKUS) 04 needed. Medical 250-50 Branch mcg/dose inhalation disk Cranberry 2020-06 Yes Take by [facility] Extract 200 0-03 mouth. ity of mg Cap 13:23: [address] omeprazole 2020-06 Yes 20mg Take 20 mg U nivers 20 mg 0-03 by mouth ity of capsule 13:23: daily. [address] brimonidine 2020-06 Yes brimonidin Univers 0.2 % 0-03 e 0.2 % ity of ophthalmic 13:23: eye drops [place] solution [facility] latanoprost 2020-06 Yes latanopros Univers , PF, 0.005 0-03 t 0.005 % ity of % Drop 13:23: eye drops [address] fluticasone 2020-06 Yes 1{puff} Inhale 1 Univers -salmeterol 0-03 Puff once ity of (ADVAIR 13:23: daily as [place] DISKUS) 04 needed. Medical 250-50 Branch mcg/dose inhalation disk Cranberry 2020-06 Yes Take by [facility] Extract 200 0-03 mouth. ity of mg Cap 13:23: [address] omeprazole 2020-06 Yes 20mg Take 20 mg U nivers 20 mg 0-03 by mouth ity of capsule 13:23: daily. [address] brimonidine 2020-06 Yes brimonidin Univers 0.2 % 0-03 e 0.2 % ity of ophthalmic 13:23: eye drops [place] solution [facility] latanoprost 2020-06 Yes latanopros Univers , PF, 0.005 0-03 t 0.005 % ity of % Drop 13:23: eye drops [address] fluticasone 2020-06 Yes 1{puff} Inhale 1 Univers -salmeterol 0-03 Puff once ity of (ADVAIR 13:23: daily as [place] DISKUS) 04 needed. Medical 250-50 Branch mcg/dose inhalation disk Cranberry 2020-06 Yes Take by [facility] Extract 200 0-03 mouth. ity of mg Cap 13:23: [address] omeprazole 2020-06 Yes 20mg Take 20 mg U nivers 20 mg 0-03 by mouth ity of capsule 13:23: daily. [address] brimonidine 2020-06 Yes brimonidin Univers 0.2 % 0-03 e 0.2 % ity of ophthalmic 13:23: eye drops [place] solution [facility] latanoprost 2020-06 Yes latanopros Univers , PF, 0.005 0-03 t 0.005 % ity of % Drop 13:23: eye drops [address] fluticasone 2020-06 Yes 1{puff} Inhale 1 Univers -salmeterol 0-03 Puff once ity of (ADVAIR 13:23: daily as [place] DISKUS) 04 needed. Medical 250-50 Branch mcg/dose inhalation disk Cranberry 2020-06 Yes Take by Univ ers Extract 200 0-03 mouth. ity of mg Cap 13:23: [address] omeprazole 2020-06 Yes 20mg Take 20 mg U nivers 20 mg 0-03 by mouth ity of capsule 13:23: daily. [address] brimonidine 2020-06 Yes brimonidin Univers 0.2 % 0-03 e 0.2 % ity of ophthalmic 13:23: eye drops [place] solution [facility] latanoprost 2020-06 Yes latanopros Univers , PF, 0.005 0-03 t 0.005 % ity of % Drop 13:23: eye drops [address] traMADoL 50 Yes 4647 50mg Take 1 Univ ers mg tablet 7-27 tablet by ity o f 00:00: mouth [place] 00 every 4 Medical (four) Branch hours as needed for Pain (scale 7-10). Indication s: acute pain traMADoL 50 Yes 4647 50mg Take 1 Univ ers mg tablet 7-27 tablet by ity o f 00:00: mouth [place] 00 every 4 Medical (four) Branch hours as needed for Pain (scale 7-10). Indication s: acute pain traMADoL 50 Yes 4647 50mg Take 1 Univ ers mg tablet 7-27 tablet by ity o f 00:00: mouth [place] 00 every 4 Medical (four) Branch hours as needed for Pain (scale 7-10). Indication s: acute pain traMADoL 50 Yes 4647 50mg Take 1 Univ ers mg tablet 7-27 tablet by ity o f 00:00: mouth [place] 00 every 4 Medical (four) Branch hours as needed for Pain (scale 7-10). Indication s: acute pain traMADoL 50 2020-0 Yes 4647 50mg Take 1 Univ ers mg tablet 7-27 tablet by ity o f 00:00: mouth [place] 00 every 4 Medical (four) Branch hours as needed for Pain (scale 7-10). Indication s: acute pain traMADoL 50 2020-0 Yes 4647 50mg Take 1 Univ ers mg tablet 7-27 tablet by ity o f 00:00: mouth [place] 00 every 4 Medical (four) Branch hours as needed for Pain (scale 7-10). Indication s: acute pain traMADoL 50 2020-0 Yes 4647 50mg Take 1 Univ ers mg tablet 7-27 tablet by ity o f 00:00: mouth [place] 00 every 4 Medical (four) Branch hours as needed for Pain (scale 7-10). Indication s: acute pain traMADoL 50 2020-0 Yes 4647 50mg Take 1 Univ ers mg tablet 7-27 tablet by ity o f 00:00: mouth [place] 00 every 4 Medical (four) Branch hours as needed for Pain (scale 7-10). Indication s: acute pain traMADoL 50 2020-0 Yes 4647 50mg Take 1 Univ ers mg tablet 7-27 tablet by ity o f 00:00: mouth [place] 00 every 4 Medical (four) Branch hours as needed for Pain (scale 7-10). Indication s: acute pain traMADoL 50 2020-0 Yes 4647 50mg Take 1 Univ ers mg tablet 7-27 tablet by ity o f 00:00: mouth [place] 00 every 4 Medical (four) Branch hours as needed for Pain (scale 7-10). Indication s: acute pain traMADoL 50 2020-0 Yes 4647 50mg Take 1 [facility] mg tablet 7-27 tablet by ity o f 00:00: mouth [place] 00 every 4 Medical (four) Branch hours as needed for Pain (scale 7-10). Indication s: acute pain traMADoL 50 2020-0 Yes 4647 50mg Take 1 [facility] ers mg tablet 7-27 tablet by ity o f 00:00: mouth [place] 00 every 4 Medical (four) Branch hours as needed for Pain (scale 7-10). Indication s: acute pain traMADoL 50 2020-0 Yes 4647 50mg Take 1 [facility] ers mg tablet 7-27 tablet by ity o f 00:00: mouth [place] 00 every 4 Medical (four) Branch hours as needed for Pain (scale 7-10). Indication s: acute pain traMADoL 50 2020-0 Yes 4647 50mg Take 1 [facility] mg tablet 7-27 tablet by ity o f 00:00: mouth [place] 00 every 4 Medical (four) Branch hours as needed for Pain (scale 7-10). Indication s: acute pain traMADoL 50 2020-0 Yes 4647 50mg Take 1 [facility] ers mg tablet 7-27 tablet by ity o f 00:00: mouth [place] 00 every 4 Medical (four) Branch hours as needed for Pain (scale 7-10). Indication s: acute pain traMADoL 50 2020-0 Yes 4647 50mg Take 1 [facility] mg tablet 7-27 tablet by ity o f 00:00: mouth [place] 00 every 4 Medical (four) Branch hours as needed for Pain (scale 7-10). Indication s: acute pain traMADoL 50 2020-0 Yes 4647 50mg Take 1 [facility] mg tablet 7-27 tablet by ity o f 00:00: mouth [place] 00 every 4 Medical (four) Branch hours as needed for Pain (scale 7-10). Indication s: acute pain traMADoL 50 2020-0 Yes 4647 50mg Take 1 [facility] mg tablet 7-27 tablet by ity o f 00:00: mouth [place] 00 every 4 Medical (four) Branch hours as needed for Pain (scale 7-10). Indication s: acute pain traMADoL 50 2020-0 Yes 4647 50mg Take 1 [facility] mg tablet 7-27 tablet by ity o f 00:00: mouth [place] 00 every 4 Medical (four) Branch hours as needed for Pain (scale 7-10). Indication s: acute pain traMADoL 50 2020-0 Yes 4647 50mg Take 1 [facility] mg tablet 7-27 tablet by ity o f 00:00: mouth [place] 00 every 4 Medical (four) Branch hours as needed for Pain (scale 7-10). Indication s: acute pain traMADoL 50 2020-0 Yes 4647 50mg Take 1 [facility] mg tablet 7-27 tablet by ity o f 00:00: mouth [place] 00 every 4 Medical (four) Branch hours as needed for Pain (scale 7-10). Indication s: acute pain traMADoL 50 Yes 4647 50mg Take 1 [facility] mg tablet 7-27 tablet by ity o f 00:00: [place] 00 every 4 Medical (four) Branch hours as needed for Pain (scale 7-10). Indication s: acute pain traZODone Yes [facility] 50 mg 7-14 ity of tablet 00:00: Medical Branch traZODone Yes [facility] 50 mg 7-14 ity of tablet 00:00: [place] [facility] traZODone Yes [facility] 50 mg 7-14 ity of tablet 00:00: Medical Branch traZODone Yes Univers 50 mg 7-14 ity of tablet 00:00: [place] [facility] traZODone Yes Univers 50 mg 7-14 ity of tablet 00:00: [place] [facility] traZODone Yes Univers 50 mg 7-14 ity of tablet 00:00: [place] [facility] traZODone Yes [facility] 50 mg 7-14 ity of tablet 00:00: Medical Branch traZODone Yes [facility] 50 mg 7-14 ity of tablet 00:00: Medical Branch traZODone Yes [facility] 50 mg 7-14 ity of tablet 00:00: Medical Branch traZODone Yes [facility] 50 mg 7-14 ity of tablet 00:00: [place] [facility] traZODone Yes [facility] 50 mg 7-14 ity of tablet 00:00: [place] [facility] traZODone Yes [facility] 50 mg 7-14 ity of tablet 00:00: [place] [facility] traZODone Yes [facility] 50 mg 7-14 ity of tablet 00:00: Medical Branch traZODone Yes Univers 50 mg 7-14 ity of tablet 00:00: Medical Branch traZODone Yes [facility] 50 mg 7-14 ity of tablet 00:00: Medical Branch traZODone 2021-0 Yes [facility] 50 mg 7-14 ity of tablet 00:00: Medical Branch traZODone 2020-0 Yes Univers 50 mg 7-14 ity of tablet 00:00: Medical Branch traZODone 2020-0 Yes [facility] 50 mg 7-14 ity of tablet 00:00: Medical Branch traZODone 2020-0 Yes Univers 50 mg 7-14 ity of tablet 00:00: Medical Branch traZODone 2020-0 Yes [facility] 50 mg 7-14 ity of tablet 00:00: Medical Branch traZODone 2020-0 Yes Univers 50 mg 7-14 ity of tablet 00:00: Medical Branch traZODone 2020-0 Yes Univers 50 mg 7-14 ity of tablet 00:00: Medical Branch latanoprost 0 Yes Univer s 0.005 % 6-05 ity of ophthalmic 00:00: [place] drops Medical Branch latanoprost 2017-0 Yes Univer s 0.005 % 6-05 ity of ophthalmic 00:00: [place] drops Medical Branch latanoprost 2017-0 Yes Univer s 0.005 % 6-05 ity of ophthalmic 00:00: [place] drops Medical Branch latanoprost 2017-0 Yes Univer s 0.005 % 6-05 ity of ophthalmic 00:00: [place] drops Medical Branch latanoprost 2018-0 Yes Univer s 0.005 % 6-05 ity of ophthalmic 00:00: [place] drops Medical Branch latanoprost 2018-0 Yes Univer s 0.005 % 6-05 ity of ophthalmic 00:00: [place] drops Medical Branch latanoprost 2018-0 Yes Univer s 0.005 % 6-05 ity of ophthalmic 00:00: [place] drops Medical Branch latanoprost 2018-0 Yes Univer s 0.005 % 6-05 ity of ophthalmic 00:00: [place] drops Medical Branch latanoprost 2018-0 Yes Univer s 0.005 % 6-05 ity of ophthalmic 00:00: [place] drops Medical Branch latanoprost 2018-0 Yes Univer s 0.005 % 6-05 ity of ophthalmic 00:00: [place] drops Medical Branch latanoprost 2018-0 Yes Univer s 0.005 % 6-05 ity of ophthalmic 00:00: [place] drops 00 Medical Branch latanoprost 2018-0 Yes Univer s 0.005 % 6-05 ity of ophthalmic 00:00: [place] drops 00 Medical Branch latanoprost 2018-0 Yes Univer s 0.005 % 6-05 ity of ophthalmic 00:00: [place] drops 00 Medical Branch latanoprost 2018-0 Yes Univer s 0.005 % 6-05 ity of ophthalmic 00:00: [place] drops Medical Branch latanoprost 2018-0 Yes Univer s 0.005 % 6-05 ity of ophthalmic 00:00: [place] drops Medical Branch latanoprost 2018-0 Yes Univer s 0.005 % 6-05 ity of ophthalmic 00:00: [place] drops Medical Branch latanoprost 2018-0 Yes Univer s 0.005 % 6-05 ity of ophthalmic 00:00: [place] drops Medical Branch latanoprost 2018-0 Yes Univer s 0.005 % 6-05 ity of ophthalmic 00:00: [place] drops Medical Branch latanoprost 2018-0 Yes Univer s 0.005 % 6-05 ity of ophthalmic 00:00: [place] drops Medical Branch latanoprost 2018-0 Yes Univer s 0.005 % 6-05 ity of ophthalmic 00:00: [place] drops Medical Branch latanoprost 2018-0 Yes Univer s 0.005 % 6-05 ity of ophthalmic 00:00: [place] drops Medical Branch latanoprost 2018-0 Yes Univer s 0.005 % 6-05 ity of ophthalmic 00:00: [place] drops Medical Branch atorvastati 2018-0 Yes Univer s n 20 mg 6-03 ity of tablet 00:00: [place] [facility] atorvastati 2018-0 Yes Univer s n 20 mg 6-03 ity of tablet 00:00: [place] [facility] atorvastati 2018-0 Yes Univer s n 20 mg 6-03 ity of tablet 00:00: [place] [facility] atorvastati 2018-0 Yes Univer s n 20 mg 6-03 ity of tablet 00:00: [place] [facility] atorvastati 2018-0 Yes Univer s n 20 mg 6-03 ity of tablet 00:00: [place] 00 Medical Branch atorvastati 2018-0 Yes Univer s n 20 mg 6-03 ity of tablet 00:00: [place] [facility] atorvastati 2018-0 Yes Univer s n 20 mg 6-03 ity of tablet 00:00: [place] [facility] atorvastati 2018-0 Yes Univer s n 20 mg 6-03 ity of tablet 00:00: [place] [address] Medical Branch atorvastati 2018-0 Yes Univer s n 20 mg 6-03 ity of tablet 00:00: [place] [address] Medical Branch atorvastati 2018-0 Yes Univer s n 20 mg 6-03 ity of tablet 00:00: [place] [address] Medical Branch atorvastati 2018-0 Yes Univer s n 20 mg 6-03 ity of tablet 00:00: [place] [address] Medical Branch atorvastati 2018-0 Yes Univer s n 20 mg 6-03 ity of tablet 00:00: [address] Branch atorvastati 2018-0 Yes Univer s n 20 mg 6-03 ity of tablet 00:00: [place] [address] Medical Branch atorvastati 2018-0 Yes Univer s n 20 mg 6-03 ity of tablet 00:00: [address] Branch atorvastati 2018-0 Yes Univer s n 20 mg 6-03 ity of tablet 00:00: [address] Branch atorvastati 2018-0 Yes Univer s n 20 mg 6-03 ity of tablet 00:00: [address] Branch atorvastati 2018-0 Yes Univer s n 20 mg 6-03 ity of tablet 00:00: [place] [facility] atorvastati 2018-0 Yes Univer s n 20 mg 6-03 ity of tablet 00:00: [place] [address] Medical Branch atorvastati 2018-0 Yes Univer s n 20 mg 6-03 ity of tablet 00:00: [place] [address] Medical Branch atorvastati 2018-0 Yes Univer s n 20 mg 6-03 ity of tablet 00:00: [place] [address] Medical Branch atorvastati 2018-0 Yes Univer s n 20 mg 6-03 ity of tablet 00:00: [place] [address] Medical Branch atorvastati 2018-0 Yes Univer s n 20 mg 6-03 ity of tablet 00:00: [place] 00 Medical Branch carvedilol 2018-0 Yes Univers 12.5 mg 5-29 ity of tablet 00:00: [place] [address] Medical Branch carvedilol 2018-0 Yes Univers 12.5 mg 5-29 ity of tablet 00:00: [place] [address] Medical Branch carvedilol 2017-0 Yes Univers 12.5 mg 5-29 ity of tablet 00:00: [place] [address] Medical Branch carvedilol 2018-0 Yes Univers 12.5 mg 5-29 ity of tablet 00:00: [address] Branch carvedilol 2017-0 Yes Univers 12.5 mg 5-29 ity of tablet 00:00: [address] Branch carvedilol 2017-0 Yes Univers 12.5 mg 5-29 ity of tablet 00:00: [address] carvedilol 2017-0 Yes Univers 12.5 mg 5-29 ity of tablet 00:00: [address] carvedilol 2017-0 Yes Univers 12.5 mg 5-29 ity of tablet 00:00: [address] Branch carvedilol 2017-0 Yes Univers 12.5 mg 5-29 ity of tablet 00:00: [address] carvedilol 2017-0 Yes Univers 12.5 mg 5-29 ity of tablet 00:00: [address] carvedilol 2017-0 Yes Univers 12.5 mg 5-29 ity of tablet 00:00: [address] Branch carvedilol 2017-0 Yes Univers 12.5 mg 5-29 ity of tablet 00:00: [address] Branch carvedilol 2017-0 Yes Univers 12.5 mg 5-29 ity of tablet 00:00: [place] [address] Medical Branch carvedilol 2017-0 Yes Univers 12.5 mg 5-29 ity of tablet 00:00: [place] [address] Medical Branch carvedilol 2018-0 Yes Univers 12.5 mg 5-29 ity of tablet 00:00: [place] [address] Medical Branch carvedilol 2017-0 Yes Univers 12.5 mg 5-29 ity of tablet 00:00: [address] Branch carvedilol 2017-0 Yes Univers 12.5 mg 5-29 ity of tablet 00:00: [address] Branch carvedilol 2017-0 Yes Univers 12.5 mg 5-29 ity of tablet 00:00: [address] carvedilol 2017-0 Yes Univers 12.5 mg 5-29 ity of tablet 00:00: [address] carvedilol 2017-0 Yes Univers 12.5 mg 5-29 ity of tablet 00:00: [address] carvedilol 2017-0 Yes Univers 12.5 mg 5-29 ity of tablet 00:00: [address] carvedilol 2017-0 Yes Univers 12.5 mg 5-29 ity of tablet 00:00: [address] famotidine 0 Yes Univers 40 mg 5-21 ity of tablet 00:00: [address] famotidine 2017-0 Yes Univers 40 mg 5-21 ity of tablet 00:00: [address] famotidine 2017-0 Yes Univers 40 mg 5-21 ity of tablet 00:00: [address] famotidine 0 Yes Univers 40 mg 5-21 ity of tablet 00:00: [address] famotidine 2017-0 Yes Univers 40 mg 5-21 ity of tablet 00:00: [address] famotidine 0 Yes Univers 40 mg 5-21 ity of tablet 00:00: [address] famotidine 2017-0 Yes [facility] 40 mg 5-21 ity of tablet 00:00: [address] famotidine 2017-0 Yes Univers 40 mg 5-21 ity of tablet 00:00: [address] famotidine 2017-0 Yes Univers 40 mg 5-21 ity of tablet 00:00: [address] famotidine 2017-0 Yes Univers 40 mg 5-21 ity of tablet 00:00: [address] Branch famotidine 2017-0 Yes Univers 40 mg 5-21 ity of tablet 00:00: [address] famotidine 2018-0 Yes [facility] 40 mg 5-21 ity of tablet 00:00: [address] famotidine 2017-0 Yes Univers 40 mg 5-21 ity of tablet 00:00: [address] famotidine 2017-0 Yes Univers 40 mg 5-21 ity of tablet 00:00: [address] famotidine 2017-0 Yes Univers 40 mg 5-21 ity of tablet 00:00: [address] famotidine 2018-0 Yes Univers 40 mg 5-21 ity of tablet 00:00: [address] Branch famotidine 2018-0 Yes Univers 40 mg 5-21 ity of tablet 00:00: [place] [address] Medical Branch famotidine 2018-0 Yes Univers 40 mg 5-21 ity of tablet 00:00: [address] Branch famotidine 2018-0 Yes Univers 40 mg 5-21 ity of tablet 00:00: [address] famotidine 2018-0 Yes Univers 40 mg 5-21 ity of tablet 00:00: [address] Branch famotidine 2018-0 Yes Univers 40 mg 5-21 ity of tablet 00:00: [address] Branch famotidine 2018-0 Yes Univers 40 mg 5-21 ity of tablet 00:00: [address] Branch gabapentin 2018-0 Yes Univers 600 mg 5-07 ity of tablet 00:00: [address] Branch gabapentin 2018-0 Yes Univers 600 mg 5-07 ity of tablet 00:00: [address] Branch gabapentin 2018-0 Yes Univers 600 mg 5-07 ity of tablet 00:00: [address] Branch gabapentin 2018-0 Yes Univers 600 mg 5-07 ity of tablet 00:00: [place] [address] Medical Branch gabapentin 2018-0 Yes Univers 600 mg 5-07 ity of tablet 00:00: [address] Branch gabapentin 2018-0 Yes Univers 600 mg 5-07 ity of tablet 00:00: [address] Branch gabapentin 2018-0 Yes Univers 600 mg 5-07 ity of tablet 00:00: [address] Branch gabapentin 2018-0 Yes Univers 600 mg 5-07 ity of tablet 00:00: [place] [address] Medical Branch gabapentin 2018-0 Yes Univers 600 mg 5-07 ity of tablet 00:00: [address] Branch gabapentin 2018-0 Yes Univers 600 mg 5-07 ity of tablet 00:00: [place] [address] Medical Branch gabapentin 2018-0 Yes Univers 600 mg 5-07 ity of tablet 00:00: [address] Branch gabapentin 2018-0 Yes Univers 600 mg 5-07 ity of tablet 00:00: [address] Branch gabapentin 2018-0 Yes Univers 600 mg 5-07 ity of tablet 00:00: [place] [address] Medical Branch gabapentin 2018-0 Yes Univers 600 mg 5-07 ity of tablet 00:00: [place] [address] Medical Branch gabapentin 2018-0 Yes Univers 600 mg 5-07 ity of tablet 00:00: [place] 00 Medical Branch gabapentin 2018-0 Yes Univers 600 mg 5-07 ity of tablet 00:00: [place] [address] Medical Branch gabapentin 2018-0 Yes Univers 600 mg 5-07 ity of tablet 00:00: [place] [address] Medical Branch gabapentin 2018-0 Yes Univers 600 mg 5-07 ity of tablet 00:00: [place] [address] Medical Branch gabapentin 2018-0 Yes Univers 600 mg 5-07 ity of tablet 00:00: [place] [address] Medical Branch gabapentin 2018-0 Yes Univers 600 mg 5-07 ity of tablet 00:00: [place] [address] Medical Branch gabapentin 2018-0 Yes Univers 600 mg 5-07 ity of tablet 00:00: [place] [address] Medical Branch gabapentin 2018-0 Yes Univers 600 mg 5-07 ity of tablet 00:00: [place] [address] Medical Branch levothyroxi 2018-0 Yes Univer s ne 50 mcg 3-30 ity of tablet 00:00: [place] [address] Medical Branch levothyroxi 2018-0 Yes Univer s ne 50 mcg 3-30 ity of tablet 00:00: [place] [address] Medical Branch levothyroxi 2018-0 Yes Univer s ne 50 mcg 3-30 ity of tablet 00:00: [place] [address] Medical Branch levothyroxi 2018-0 Yes Univer s ne 50 mcg 3-30 ity of tablet 00:00: [place] [address] Medical Branch levothyroxi 2018-0 Yes Univer s ne 50 mcg 3-30 ity of tablet 00:00: [address] Branch levothyroxi 2018-0 Yes Univer s ne 50 mcg 3-30 ity of tablet 00:00: [place] [address] Medical Branch levothyroxi 2018-0 Yes Univer s ne 50 mcg 3-30 ity of tablet 00:00: [place] [address] Medical Branch levothyroxi 2018-0 Yes Univer s ne 50 mcg 3-30 ity of tablet 00:00: [place] [address] Medical Branch levothyroxi 2018-0 Yes Univer s ne 50 mcg 3-30 ity of tablet 00:00: [place] [address] Medical Branch levothyroxi 2018-0 Yes Univer s ne 50 mcg 3-30 ity of tablet 00:00: [place] [address] Medical Branch levothyroxi 2018-0 Yes Univer s ne 50 mcg 3-30 ity of tablet 00:00: [place] [address] Medical Branch levothyroxi 2018-0 Yes Univer s ne 50 mcg 3-30 ity of tablet 00:00: [place] 00 Medical Branch levothyroxi 2018-0 Yes Univer s ne 50 mcg 3-30 ity of tablet 00:00: [place] 00 Medical Branch levothyroxi 2018-0 Yes Univer s ne 50 mcg 3-30 ity of tablet 00:00: [place] 00 Medical Branch levothyroxi 2018-0 Yes Univer s ne 50 mcg 3-30 ity of tablet 00:00: [place] 00 Medical Branch levothyroxi 2018-0 Yes Univer s ne 50 mcg 3-30 ity of tablet 00:00: [place] 00 Medical Branch levothyroxi 2018-0 Yes Univer s ne 50 mcg 3-30 ity of tablet 00:00: [place] 00 Medical Branch levothyroxi 2018-0 Yes Univer s ne 50 mcg 3-30 ity of tablet 00:00: [place] 00 Medical Branch levothyroxi 2018-0 Yes Univer s ne 50 mcg 3-30 ity of tablet 00:00: [place] 00 Medical Branch levothyroxi 2018-0 Yes Univer s ne 50 mcg 3-30 ity of tablet 00:00: [place] 00 Medical Branch levothyroxi 2018-0 Yes Univer s ne 50 mcg 3-30 ity of tablet 00:00: [place] 00 Medical Branch levothyroxi 2018-0 Yes Univer s ne 50 mcg 3-30 ity of tablet 00:00: [place] 00 Medical Branch Immunizations Ordered Filled Immunization Date Status Comments [facility] e Immunization Name Name SARS-COV-2 COVID-19 2021-02-10 Completed Unive rsity of [facility] VACCINE 00:00:00 [facility] SARS-COV-2 COVID-19 2021-02-10 Completed Unive rsity of [facility]ERNA VACCINE 00:00:00 [facility] SARS-COV-2 COVID-19 2021-02-10 Completed Unive rsity of MODERNA VACCINE 00:00:00 [facility] SARS-COV-2 COVID-19 2021-02-10 Completed Unive rsity of MODERNA VACCINE 00:00:00 [facility] SARS-COV-2 COVID-19 2021-02-10 Completed Unive rsity of MODERNA VACCINE 00:00:00 [facility] SARS-COV-2 COVID-19 2021-02-10 Completed Unive rsity of MODERNA VACCINE 00:00:00 [place] [facility] SARS-COV-2 COVID-19 2021-02-10 Completed Unive rsity of MODERNA VACCINE 00:00:00 [place] [facility] Branch SARS-COV-2 COVID-19 2021-02-10 Completed Unive rsity of MODERNA VACCINE 00:00:00 [place] [facility] Branch SARS-COV-2 COVID-19 2021-02-10 Completed Unive rsity of MODERNA VACCINE 00:00:00 [place] [facility] Branch SARS-COV-2 COVID-19 2021-02-10 Completed Unive rsity of MODERNA VACCINE 00:00:00 [place] [facility] Branch SARS-COV-2 COVID-19 2021-02-10 Completed Unive rsity of MODERNA VACCINE 00:00:00 [place] [facility] Branch SARS-COV-2 COVID-19 2021-02-10 Completed Unive rsity of MODERNA VACCINE 00:00:00 [place] [facility] Branch SARS-COV-2 COVID-19 2021-02-10 Completed Unive rsity of MODERNA VACCINE 00:00:00 [place] [facility] SARS-COV-2 COVID-19 2021-02-10 Completed Unive rsity of MODERNA VACCINE 00:00:00 [place] [facility] Branch SARS-COV-2 COVID-19 2021-02-10 Completed Unive rsity of MODERNA VACCINE 00:00:00 [place] [facility] ical Branch SARS-COV-2 COVID-19 2021-02-10 Completed Unive rsity of MODERNA VACCINE 00:00:00 [place] [facility] ical Branch SARS-COV-2 COVID-19 2021-02-10 Completed Unive rsity of MODERNA VACCINE 00:00:00 [place] [facility] Branch SARS-COV-2 COVID-19 2021-02-10 Completed Unive rsity of MODERNA VACCINE 00:00:00 [place] [facility] Branch SARS-COV-2 COVID-19 2021-02-10 Completed Unive rsity of MODERNA VACCINE 00:00:00 [place] [facility] Branch SARS-COV-2 COVID-19 2021-02-10 Completed Unive rsity of MODERNA VACCINE 00:00:00 [place] [facility] Branch SARS-COV-2 COVID-19 2021-02-10 Completed Unive rsity of MODERNA VACCINE 00:00:00 [facility] SARS-COV-2 COVID-19 2021-02-10 Completed Unive rsity of MODERNA VACCINE 00:00:00 [facility] TDAP 2018-11-22 Completed University of 00:00:00 [facility] TDAP 2018-11-22 Completed University of 00:00:00 [facility] TDAP 2018-11-22 Completed University of 00:00:00 [facility] TDAP 2018-11-22 Completed University of 00:00:00 [facility] TDAP 2018-11-22 Completed University of 00:00:00 [facility] TDAP 2018-11-22 Completed University of 00:00:00 [facility] TDAP 2018-11-22 Completed University of 00:00:00 [facility] TDAP 2018-11-22 Completed University of 00:00:00 [facility] TDAP 2018-11-22 Completed University of 00:00:00 [facility] TDAP 2018-11-22 Completed University of 00:00:00 [facility] TDAP 2018-11-22 Completed University of 00:00:00 [facility] TDAP 2018-11-22 Completed University of 00:00:00 [facility] TDAP 2018-11-22 Completed University of 00:00:00 [facility] TDAP 2018-11-22 Completed University of 00:00:00 [facility] TDAP 2018-11-22 Completed University of 00:00:00 [facility] TDAP 2018-11-22 Completed University of 00:00:00 [facility] TDAP 2018-11-22 Completed University of 00:00:00 [facility] TDAP 2018-11-22 Completed University of 00:00:00 [facility] TDAP 2018-11-22 Completed University of 00:00:00 [facility] TDAP 2018-11-22 Completed University of 00:00:00 [facility] TDAP 2018-11-22 Completed University of 00:00:00 [facility] TDAP 2018-11-22 Completed University of 00:00:00 [facility] Zoster Vaccine 2018-01-18 Completed University of Recombinant 00:00:00 [facility] Zoster Vaccine 2018-01-18 Completed University of Recombinant 00:00:00 [facility] Zoster Vaccine 2018-01-18 Completed University of Recombinant 00:00:00 [facility] Zoster Vaccine 2018-01-18 Completed University of Recombinant 00:00:00 [facility] Zoster Vaccine 2018-01-18 Completed University of Recombinant 00:00:00 [facility] Zoster Vaccine 2018-01-18 Completed University of Recombinant 00:00:00 [facility] Zoster Vaccine 2018-01-18 Completed University of Recombinant 00:00:00 [facility] Zoster Vaccine 2018-01-18 Completed University of Recombinant 00:00:00 [facility] Zoster Vaccine 2018-01-18 Completed University of Recombinant 00:00:00 [facility] Zoster Vaccine 2018-01-18 Completed University of Recombinant 00:00:00 [facility] Zoster Vaccine 2018-01-18 Completed University of Recombinant 00:00:00 [facility] Zoster Vaccine 2018-01-18 Completed University of Recombinant 00:00:00 [facility] Zoster Vaccine 2018-01-18 Completed University of Recombinant 00:00:00 [facility] Zoster Vaccine 2018-01-18 Completed University of Recombinant 00:00:00 [facility] Zoster Vaccine 2018-01-18 Completed University of Recombinant 00:00:00 [facility] Zoster Vaccine 2018-01-18 Completed University of Recombinant 00:00:00 [facility] Zoster Vaccine 2018-01-18 Completed University of Recombinant 00:00:00 [facility] Zoster Vaccine 2018-01-18 Completed University of Recombinant 00:00:00 [facility] Zoster Vaccine 2018-01-18 Completed University of Recombinant 00:00:00 [facility] Zoster Vaccine 2018-01-18 Completed University of Recombinant 00:00:00 [facility] Zoster Vaccine 2018-01-18 Completed University of Recombinant 00:00:00 [facility] Zoster Vaccine 2018-01-18 Completed University of Recombinant 00:00:00 [facility] Vital Signs Vital Name Observation Time Observation Value Comments Source Systolic blood 2021-03-25 15:17:00 135 mm[Hg] [facility] [place] pressure [facility] Branch Diastolic blood 2021-03-25 15:17:00 75 mm[Hg] Unive [facility] Heart rate 2021-03-25 15:17:00 66 /min [facility] Body height 2021-03-25 15:17:00 154.9 cm [facility] Body weight 2021-03-25 15:17:00 67.132 kg [facility] BMI 2021-03-25 15:17:00 27.96 kg/m2 [facility] Procedures Procedure Date / Time Performed Performing Clinician Barry e XR SHOULDER 2+ VW 2021-03-25 15:34:36 Marta Johnson [facility] Encounters Start End Encounter Admission Attending Care Care Encounter Source Date/Time Date/Time Type Type Clinicians Facility Department ID 2021-04-05 Emergency [facility] [id number] [facility] 02:59:47 [facility] 2021-04-04 Emergency [facility] [id number] Univers 22:05:32 [facility] 2021-04-04 [id number] Univers 09:11:[address] [facility] 2021-04-03 Emergency [facility] [id number] Univers 05:23:20 [facility] 2021-06-16 2021-06-16 Outpatient [facility] [id number] Univers 08:00:00 08:00:00 [id number] [facility] 2021-06-14 2021-06-14 Outpatient [facility] [id number] Univers 08:00:00 08:00:00 [id number] [facility] 2021-06-09 2021-06-09 Outpatient [facility] [id number] Univers 08:00:00 08:00:[id number] [facility] 2021-06-07 2021-06-07 Ancillary Yoselin Francisco [facility] [id number] Univers 08:40:00 09:20:00 Visit Marta Johnson [id number] [facility] [id number] Neris GOLDSTEINESSIO [phone] [place] [id number] [facility] 2021-06-07 2021-06-07 Outpatient R [facility] [id number] -[id number] Univers 08:40:00 08:40:[id number] [facility] 2021-06-07 2021-06-07 [facility] [id number] Univers 08:40:00 08:40:[address] [facility] 2021-06-02 2021-06-02 Ancillary Yoselin Francisco [facility] 1.2.840 .114 [id number] Univers 08:00:00 08:40:00 Visit Marta Johnson [id number] it[place] [phone] Mo dical NAL 179 [facility] 2021-06-02 2021-06-02 Outpatient [facility] [id number] -[id number] Univers 08:00:00 08:00:00 [id number] ity of [facility] 2021-06-01 2021-06-01 [facility] [id number] Univers 08:00:00 10:11:[address] [facility] 2021-06-01 2021-06-01 Ancillary Kimberly Mcgovern [facility] 1 .2.840.114 [id number] Univers 08:00:00 10:11:08 Visit Marta Johnson RAVENSOFI [id number] it[id number] [phone] Mo dical NAL 179 [facility] 2021-06-01 2021-06-01 Outpatient [facility] [id number] -[id number] Univers 08:00:00 08:00:00 [id number] ity of [facility] 2021-05-31 2021-05-31 Outpatient [facility] [id number] -[id number] Univers 08:00:00 08:00:00 [id number] ity of [facility] 2021-05-26 2021-05-26 Ancillary Yoselin Francisco [facility] 1.2.840 .114 [id number] Univers 08:00:00 08:40:00 Visit Marta Johnson RAVENSOFI [id number] it[place] [phone] Mo dical NAL 179 [facility] 2021-05-26 2021-05-26 Outpatient R [facility] [id number] -[id number] Univers 08:00:00 08:00:00 [id number] ity of [facility] 2021-05-24 2021-05-24 Outpatient [facility] [id number] -20 Univers 08:00:00 08:00:00 [id number] ity of [facility] 2021-05-19 2021-05-19 Ancillary Yoselin Francisoc [facility] 1.2.840 .114 [id number] Univers 09:00:00 09:40:00 Visit Marta Johnson [id number] ity of [place] [phone] Mo dical NAL 179 [facility] 2021-05-19 2021-05-19 Outpatient [facility] [id number] -[id number] Univers 09:00:00 09:00:00 [id number] ity of [facility] 2021 2021 Ancillary Yoselin Francisco [facility] 1.2.840 .114 [id number] Univers 08:24:27 09:04:27 Visit Marta Johnson [id number] it[place] [phone] Mo dical NAL 179 [facility] 2021 2021 Outpatient [facility] [id number] -20 Univers 08:40:00 08:40:00 [id number] ity of [facility] 2021-05-12 2021-05-12 Ancillary Maki Lewis [facility] 1.2. 840.114 [id number] Univers 09:07:45 09:47:45 Visit Marta Johnson [id number] it[place] [phone] Mo dical NAL 179 [facility] 2021-05-12 2021-05-12 Outpatient [facility] [id number] -[id number] Univers 09:20:00 09:20:00 [id number] ity of [facility] 2021-05-10 2021-05-10 Ancillary Yoselin Francisco [facility] 1.2.840 .114 [id number] Univers 08:14:36 09:10:52 Visit Marta Johnson [id number] it[place] [phone] Mo dical NAL 179 [facility] 2021-05-10 2021-05-10 Outpatient R [facility] [id number] -[id number] Univers 08:20:00 08:20:[id number] [facility] 2021-05-04 2021-05-04 Ancillary Yoselin Francisco Anum [facility] 1.2.840 .114 [id number] Univers 09:00:17 09:40:17 Visit Marta Johnson [id number] it[place] [phone] Mo dical NAL 179 [facility] 2021-05-04 2021-05-04 [facility] [id number] [facility] 09:20:00 09:20:[id number]y [facility] 2021-05-02 2021-05-02 [facility] [id number] Univers 09:20:00 10:49:[address] [facility] 2021-05-02 2021-05-02 Ancillary Korey Ayde Treadwellsha [facility] 1 .2.840.114 [id number] Univers 08:55:20 10:49:18 Visit Marta Johnson 350.1.13.10 it[place] [phone] Mo dical NAL 179 [facility] 2021-05-02 2021-05-02 Outpatient R [facility] [id number] -20 Univers 09:20:00 09:20:[id number] [facility] 2021-04-27 2021-04-27 Ancillary aMki Lewis [facility] 1.2. 840.114 [id number] Univers 10:25:37 11:05:37 Visit Marta Johnson 350.1.13.10 it[place] [phone] Mo dical NAL 179 [facility] 2021-04-27 2021-04-27 [facility] [id number] 4P-20 Univers 10:40:00 10:40:00 MARTA [id number] ity of [facility] 2021-04-26 2021-04-26 Ancillary Yoselin Francisco [facility] 1.2.840 .114 [id number] Univers 11:21:18 12:01:18 Visit Marta Johnson 350.1.13.10 ity of [facility] [place] [phone] Mo dical NAL 179 [facility] 2021-04-26 2021-04-26 Outpatient R [facility] [id number] -[id number] Univers 11:20:00 11:20:00 [id number] ity of [facility] 2021-04-20 2021-04-20 Ancillary Yoselin Francisco [facility] 1.2.840 .114 [id number] Univers 08:55:10 09:35:10 Visit Marta Johnson [id number] ity of [facility] [place] [phone] Mo dical NAL 179 [facility] 2021-04-20 2021-04-20 Outpatient [facility] [id number] Univers 09:20:00 09:20:00 [id number] ity of [facility] 2021-04-18 2021-04-18 Outpatient R [facility] [id number] -[id number] Univers 09:20:00 09:20:00 [id number] ity of [facility] 2021-04-15 2021-04-15 Outpatient [facility] [id number] -[id number] Univers 09:20:00 09:20:00 [id number] ity of [facility] 2021-04-13 2021-04-13 Ancillary Yoselin Francisco [facility] 1.2.840 .114 [id number] Univers 09:00:14 09:40:14 Visit Marta Johnson 350.1.13.10 ity of [facility] [place] [phone] Mo dical NAL 179 [facility] 2021-04-13 2021-04-13 Outpatient [facility] [id number] -[id number] Univers 09:20:00 09:20:00 [id number] ity of [facility] 2021-04-11 2021-04-11 Ancillary Sandra Thompson [facility] 1.2.840. 114 [id number] Univers 08:56:10 16:47:24 Visit Marta Johnson 350.1.13.10 ity of [facility] [place] [phone] Mo dical NAL 179 [facility] 2021-04-11 2021-04-11 Outpatient R [facility] [id number] -[id number] Univers 09:20:00 09:20:00 [id number] ity of [facility] 2021-04-08 2021-04-08 Outpatient [facility] [id number] -[id number] [facility] 09:40:00 09:40:00 [id number] ity of [facility] 2021-04-08 2021-04-08 Ancillary Lucia Laws [facility] 1.2.84 0.114 [id number] Univers 08:59:21 09:39:21 Visit Marta Johnson 350.1.13.10 ity of [facility] [place] [phone] Mo dical NAL 179 [facility] 2021-04-06 2021-04-06 Ancillary Yoselin Francisco [facility] 1.2.840 .114 [id number] Univers 09:04:55 09:44:55 Visit Marta Johnson 350.1.13.10 ity of [facility] [place] [phone] Mo dical NAL 179 [facility] 2021-04-06 2021-04-06 Outpatient [facility] [id number] Univers 09:20:00 09:20:00 [id number] ity of [facility] 2021-04-04 2021-04-04 Ancillary Lucia Laws [facility] 1.2.84 0.114 [id number] Univers 10:12:57 10:52:57 Visit Marta Johnson 350.1.13.10 it[place] [phone] Mo dical NAL 179 [facility] 2021-04-04 2021-04-04 Outpatient [facility] [id number] -[id number] Univers 10:20:00 10:20:00 [id number] ity of [facility] 2021-04-01 2021-04-01 [facility] [id number] Univers 13:40:00 14:26:[address] [facility] 2021-04-01 2021-04-01 Ancillary Yoselin Francisco [facility] 1.2.840 .114 [id number] Univers 13:24:12 14:26:09 Visit Marta Johnson 350.1.13.10 it[place] [phone] Mo dical NAL 179 [facility] 2021-04-01 2021-04-01 Outpatient [facility] [id number] -[id number] Univers 10:00:00 10:00:[id number] [facility] 2021-03-29 2021-03-29 Ancillary Maki Lewis [facility] 1.2. 840.114 [id number] Univers 09:07:25 09:47:25 Visit Marta Johnson 350.1.13.10 it[place] of [place] [phone] Mo dical nal 179 [facility] 2021-03-29 2021-03-29 Outpatient R [facility] [id number] -[id number] Univers 09:20:00 09:20:[id number] [facility] 2021-03-25 2021-03-25 Hospital Elizabeth [facility] 1.2.840.114 [id number] Univers 10:25:00 23:59:00 Encounter Marta Flores [facility] [id number] ity of [place] 4.2.7.2.686 Guillermo as Oswaldo?Blea [phone] Mo jermain rodriguez [address] [facility] Office [facility] 2021-03-25 2021-03-25 Outpatient R LEONA [facility] [id number] -[id number] Univers 10:45:00 10:45:[id number] [facility] 2021-03-25 2021-03-25 [facility] [id number] Univers 10:45[facility]00 [facility] 2021[facility]03[facility]25 [facility] 1.2.840.114 [id number] Univers 10:10:35 10:25:35 Visit Arley [facility] 350.1.13.10 it y of [place] 4.2.7.2.686 Guillermo as Oswaldo?Blea [phone] Mo jermain [address] [facility] 2021-03-17 2021-03-17 Outpatient [facility] [id number] -[id number] Univers 13:40:00 13:40:[id number] [facility] 2021-03-15 2021-03-15 Outpatient [facility] [id number] -[id number] Univers 13:40:00 13:40:[id number] [facility] 2021-03-10 2021-03-10 Outpatient [facility] [id number] -[id number] Univers 13:40:00 13:40:[id number] [facility] 2021-03-08 2021-03-08 Outpatient [facility] [id number] -[id number] Univers 13:40:00 13:40:[id number] [facility] 2021-03-03 2021-03-03 Outpatient [facility] [id number] -[id number] Univers 14:20:00 14:20:[id number] [facility] 2021-03-01 2021-03-01 Outpatient R [facility] [id number] -[id number] Univers 14:20:00 14:20:[id number] [facility] 2021-02-24 2021-02-24 [facility] [id number] -[id number] Univers 10:30:00 10:30:[id number] [facility] 2021-02-24 2021-02-24 [facility] [id number] Univers 10:30:00 10:30:00 [facility] 2021-02-22 Outpatient [facility] [id number] -[id number] Univers 13:00:00 13:00:00 [id number] ity of [facility] 2021-02-17 2021-02-17 Outpatient [facility] [id number] Univers 13:00:00 13:00:00 [id number] ity of [facility] 2021-02-15 2021-02-15 Outpatient [facility] [id number] -[id number] Univers 13:00:00 13:00:00 [id number] ity of [facility] 2021-02-10 2021-02-10 Outpatient R LUCRECIA [facility] [id number] Univers 15:50:00 15:50:[address] [facility] 2021-02-10 2021-02-10 Outpatient [facility] [id number] -[id number] Univers 13:40:00 13:40:[id number] [facility] 2021-02-09 2021-02-09 Outpatient [facility] [id number] -[id number] Univers 13:00:00 13:00:[id number] [facility] 2021-02-03 2021-02-03 Outpatient [facility] [id number] -[id number] Univers 13:40:00 13:40:[id number] [facility] 2021-02-03 2021-02-03 Outpatient [facility] [id number] Univers 13:40:00 13:40:[address] [facility] 2021-02-01 2021-02-01 Outpatient R [facility] [id number] -[id number] Univers 14:20:00 14:20:[id number] [facility] 2021-01-27 2021-01-27 Outpatient R [facility] [id number] -[id number] Univers 13:00:00 13:00:[id number] [facility] 2021-01-27 2021-01-27 [facility] [id number] Univers 13:00:00 13:00:[address] [facility] 2021-01-24 2021-01-24 [facility] [id number] Univers 13:45:00 13:45:[id number] [facility] 2021-01-24 2021-01-24 Outpatient R ELIZABETH [facility] [id number] Univers 13:45:00 13:45:[address] [facility] 2021-01-10 2021-01-10 Outpatient ELIZABETH [facility] [id number] Univers 14:45:00 14:45:[id number] [facility] 2021-01-10 2021-01-10 Outpatient R ELIZABETH [facility] [id number] Univers 14:45:00 14:45:[address] [facility] 2020-12-24 2020-12-24 Outpatient R [facility] [id number] -[id number] Univers 08:45:00 08:45:[id number] [facility] 2020-12-24 2020-12-24 Outpatient R JOHNSON, [facility] [id number] Univers 08:45:00 08:45:00 MARTA [facility] 2020-12-23 2020-12-23 Outpatient R [facility] [id number] Univers 13:00:00 13:00:[id number] [facility] 2020-12-23 2020-12-23 Outpatient R ELIZABETH [facility] [id number] Univers 13:00:00 13:00:00 MARTA [facility] 2020-12-22 2020-12-22 Outpatient R [facility] [id number] Univers 09:45:00 09:45:[id number] [facility] 2020-12-22 2020-12-22 Outpatient R JOHNSON, [facility] [id number] Univers 09:45:00 09:45:[address] [facility] 2020-12-16 2020-12-16 Outpatient R LEONA [facility] [id number] -[id number] Univers 13:45:00 13:45:[id number] [facility] 2020-12-16 2020-12-16 Outpatient R LEONA [facility] [id number] Univers 13:45:00 13:45:00 ARLEY [facility] 2020-12-16 2020-12-16 Outpatient Yohana DELGADILLO [facility] [id number] Univers 13:45:00 13:45:00 ARLEY [facility] 2020-11-22 2020-11-22 Outpatient Yohana ELIZABETH [facility] [id number]-20 Univers 16:15:00 16:15:00 MARTA [id number] [facility] 2020-11-22 2020-11-22 Outpatient Yohana JOHNSON [facility] [id number] Univers 16:15:00 16:15:00 MARTA [facility] 2020-11-18 2020-11-18 Outpatient Yohana JOHNSON [facility] [id number]-20 Univers 08:30:00 08:30:00 MARTA [id number] [facility] 2020-09-16 2020-09-16 Outpatient GC_SWHAWPRC PRIV PRIV [id number] [facility] 11:38:00 11:38:00 _Lara [id number] [facility] 2020-09-14 2020-09-14 Outpatient GC_SWHAWPRC PRIV PRIV [id number] [facility] 01:43:00 01:43:00 _Lara [id number] [facility] 2020-09-14 2020-09-14 [facility] [id number] 00:00:00 00:00:00 Tootie tong [id number] [facility] [id number] 2020-08-31 2020-08-31 Outpatient Yohana DELGADILLO [facility] [id number] Univers 10:00:00 10:00:00 ARLEY [id number] [facility] 2020-08-31 2020-08-31 Outpatient Yohana DELGADILLO [facility] [id number] Univers 10:00:00 10:00:00 ARLEY [facility] 2020-08-16 2020-08-16 Outpatient [facility]ABETH [facility] [id number]-20 Univers 14:00:00 14:00:00 MARTA [id number] [facility] 2020-08-16 2020-08-16 Outpatient Yohana JOHNSON [facility] [id number] Univers 14:00:00 14:00:[address] [facility] 2020-06-02 2020-06-02 Outpatient R ELIZABETH [facility] [id number] Univers 13:30:00 13:30:[address] [facility] 2020-06-02 2020-06-02 Outpatient R ELIZABETH [facility] [id number] Univers 13:30:00 13:30:[address] [facility] 2020-06-01 2020-06-01 Outpatient R [facility] [id number]-20 Univers 00:00:00 00:00:[id number]y [facility] 2020-06-01 2020-06-01 Outpatient R ELIZABETH [facility] [id number] Univers 00:00:00 00:00:00 [facility] 2020-05-07 2020-05-07 Outpatient R ELIZABETH [facility] [id number] Univers 08:30:00 08:30:[address] [facility] 2020-05-07 2020-05-07 Outpatient R ELIZABETH [facility] [id number] Univers 08:30:00 08:30:00 MARTA [facility] 2020-03-15 2020-03-15 Outpatient R ELIZABETH [facility] [id number] Univers 16:00:00 16:00:[id number]y [facility] 2020-03-15 2020-03-15 Outpatient R ELIZABETH [facility] [id number] Univers 16:00:00 16:00:[address] [facility] 2020-02-26 2020-02-26 Outpatient R ELIZ[facility]ETH [facility] [id number] Univers 13:30:00 13:30:00 MARTA [id number] ity [facility] 2020-02-26 2020-02-26 Outpatient R ELIZ[facility]ETH [facility] [id number] Univers 13:30:00 13:30:00 MARTA [facility] 2019-08-13 2019-08-13 Outpatient R [facility] [id number] Univers 13:40:00 13:40:00 [id number] [facility] 2019-08-13 2019-08-13 [facility] [id number] Univers 13:40:00 13:40:00 MARTA [facility] 2019-07-17 2019-08-12 Ancillary [facility] 1.2.805.463 [id number] 14:12:49 16:34:23 Visit Yoselin Enriquez [id number] [place] 4.2.7.2.686 [facility] [id number] [address] 2019-07-29 2019-07-29 [facility] [id number] 4P-20 Univers 13:00:00 13:00:00 MARTA [id number] [facility] 2019-07-29 2019-07-29 [facility] [id number] Univers 13:00:00 13:00:00 MARTA [facility] Results This patient has no known results.
[2021-06-19] MEDS ORDERED: CODEINE 30MG/APAP 300MG TAB ONE (11:15)
[2021-06-19] MEDS ORDERED: IBUPROFEN 200 MG TAB PO ONE (11:16)
[2021-06-19] MEDS ORDERED: METHYLPREDNISOLONE 40 MG INJ ONE (11:19)
--- NOTE | 2021-06-19 11:50 | RAD REPORT ---
EXAM DESCRIPTION: CT - Spine Lumbar Wo Con - 06/19/2021 11:27 am CLINICAL HISTORY: Radiculopathy. Lower back pain;Pain COMPARISON: No comparisons TECHNIQUE: Axial noncontrast CT imaging of the lumbar spine was performed with coronal and sagittal re-formatted images. All CT scans are performed using dose optimization technique as appropriate and may include automated exposure control or mA/KV adjustment according to patient size. FINDINGS: No acute lumbar spine fracture seen. Advanced multilevel degenerative spondylosis is seen throughout the lumbar spine. Multiple levels of vacuum disc degeneration disc posterior osteophyte no keenan. 6 mm degenerative retrolisthesis of L1 on L2 is present. Mild degenerative dextroscoliosis. Paraspinal tissues are normal in thickness. No paraspinal abscess or hematoma seen. Small hiatal jericho ia. IMPRESSION: No acute lumbar spine abnormality is present. Advanced multilevel degenerative spondylosis is present of the lumbar spine.
[2021-06-19 11:59] LABS: Urine Blood Negative (Negative); Urine Glucose Negative (Negative); Urine Protein Negative (Negative); Urine pH 7.5 (5.0-7.0)
--- NOTE | 2021-06-19 12:30 | ER ---
Nurse's Notes [facility] Name: Yady Diggs Age: 86 yrs Sex: Female : 1935 Arrival Date: 06/19/2021 Time: 09:55 Bed 23 Private MD: Lula Pena C Diagnosis: Left lower limb sciatic pain Presentation: 06/19 10:02 Chief complaint: Patient states: left sided flank/back pain since Sunday; hurts to get [facility] up and walk. denies urination complications; denies burning and frequency. Coronavirus screen: Vaccine status: Patient reports receiving the 2nd dose of the covid vaccine. Client denies travel out of the [place] in the last 14 days. At this time, the client does not indicate any symptoms associated with coronavirus-19. Ebola Screen: Patient negative for fever greater than or equal to 101.5 degrees Fahrenheit, and additional compatible Ebola Virus Disease symptoms Patient denies exposure to infectious person. Patient denies travel to an Ebola-affected area in the 21 days before illness onset. Initial Sepsis Screen: Does the patient meet any 2 criteria? No. Patient's initial sepsis screen is negative. Does the patient have a suspected source of infection? No. Patient's initial sepsis screen is negative. Risk Assessment: Do you want to hurt yourself or someone else? Patient reports no desire to harm self or others. Onset of symptoms was June 24, 2021. 10:02 Method Of Arrival: Ambulatory [facility] 10:02 Acuity: NILAY 3 jh5 Triage Assessment: 10:04 General: Appears in no apparent distress. Behavior is calm, cooperative, appropriate [facility] for age. Pain: Denies pain. Musculoskeletal: Circulation, motion, and sensation intact. Capillary refill < 3 seconds, Range of motion: intact in all extremities. Historical: - Allergies: 10:04 adhesive tape; jh5 10:04 Iodine; jh5 10:04 Morphine; jh5 - PMHx: 10:04 GERD; Glaucoma; High Cholesterol; Hypothyroidism; Hypertension; neuropathy; jh5 - Immunization history:: Adult Immunizations up to date. - Social history:: Smoking status: Patient denies any tobacco usage or history of. Screenin:06 Abuse screen: Denies threats or abuse. Denies injuries from another. Nutritional 5 screening: No deficits noted. Tuberculosis screening: No symptoms or risk factors identified. Fall Risk Secondary diagnosis (15 points) impaired mobility. Assessment: 10:11 General: Appears in no apparent distress. uncomfortable, Behavior is calm, cooperative, ab2 appropriate for age. Pain: Complains of pain in left low back Pain currently is 10 out of 10 on a pain scale. Quality of pain is described as burning, sharp, shooting, Pain began rex. Neuro: No deficits noted. Level of Consciousness is awake, alert, obeys commands, Oriented to person, place, time, situation, Appropriate for age Rn Orthopedic are equal bilaterally Moves all extremities. Speech is normal. Cardiovascular: No deficits noted. Denies chest pain, shortness of breath, Heart tones S1 S2 present Patient's skin is warm and dry. Respiratory: No deficits noted. Airway is patent Denies cough, shortness of breath. GI: No deficits noted. No signs and/or symptoms were reported involving the gastrointestinal system. Abdomen is round non-distended, Abd is soft and non tender. : No deficits noted. No signs and/or symptoms were reported regarding the genitourinary system. Denies burning with urination, urinary frequency. EENT: No deficits noted. No signs and/or symptoms were reported regarding the EENT system. Derm: No deficits noted. No signs and/or symptoms reported regarding the dermatologic system. Musculoskeletal: Circulation, motion, and sensation intact. Range of motion: limited in left hip Reports pain in left leg. Vital Signs: 10:02 BP 144 / 91; Pulse 88; Resp 20; Temp 98.9; Pulse Ox 98% ; Weight 70.31 kg; Height 5 ft. [facility] 4 in. (162.56 cm); 12:04 BP 185 / 67; Pulse 84; Resp 16; Pulse Ox 99% on R/A; ab2 12:39 BP 164 / 64; Pulse 81; Resp 16; Pulse Ox 98% on R/A; ab2 10:02 Body Mass Index 26.61 (70.31 kg, 162.56 cm) [facility] ED Course: 09:55 Patient arrived in ED. ds1 09:55 Lula Pena MD is Private Physician. ds1 10:04 Triage completed. 5 10:04 Arm band placed on left wrist. EKG completed in triage. Results shown to MD. [facility] 10:06 Patient has correct armband on for positive identification. Bed in low position. Call jh5 light in reach. Side rails up X 1. Adult w/ patient. 10:09 Shin Marques is Primary Nurse. ab2 10:14 Ivan Foster MD is Attending Physician. kdr 10:16 No provider procedures requiring assistance completed. ab2 11:28 CT Lumbar Spine Wo Con In Process Unspecified. EDMS 12:26 Lula Pena MD is Referral Physician. kdr 12:40 Patient did not have IV access during this emergency room visit. ab2 Administered Medications: 11:15 CANCELLED (physician requestt): SOLU-Medrol (methylPrednisoLONE) 80 mg IVP once ab2 11:40 Drug: Acetaminophen-Codeine (300 mg-30 mg) 1 tablet Route: PO; ab2 12:41 Follow up: Response: No adverse reaction ab2 11:40 Drug: Ibuprofen 600 mg Route: PO; ab2 12:41 Follow up: Response: No adverse reaction ab2 11:40 Drug: SOLU-Medrol (methylPREDNISolone sodium succinate) 60 mg Route: IM; Site: left ab2 ventrogluteal; 12:40 Follow up: Response: No adverse reaction ab2 Outcome: 12:29 Discharge ordered by . kdr 12:39 Discharged to home ambulatory. ab2 12:39 Condition: good 12:39 Discharge instructions given to patient, Instructed on discharge instructions, follow up and referral plans. medication usage, Demonstrated understanding of instructions, follow-up care, medications, Prescriptions given X 3. 13:03 Patient left the ED. ab2 Signatures: Dispatcher [employer] EDPR Ivan Foster MD MD [facility] Mariposa Morales ds1 Neda Rehman, RN RN jh5 Shin Marques ab2
--- NOTE | 2021-06-19 12:30 | EDPHYS ---
Physician Documentation [facility] Name: Yady Diggs Age: 86 yrs Sex: Female : 1935 Arrival Date: 06/19/2021 Time: 09:55 Bed 23 Private MD: Lula Pena C ED Physician Ivan Foster HPI: 06/19 17:12 This 86 yrs old Female presents to ER via Ambulatory with complaints of Back kdr Pain, Leg pain. 17:12 The patient presents with pain that is acute, with no known mechanism of injury. The kdr symptoms are located in the. Onset: The symptoms/episode began/occurred suddenly, Last Sunday. Down her left anterior lateral leg to the top of her foot. The problem was sustained without known cause. Modifying factors: The patient symptoms are alleviated by remaining still, the patient symptoms are aggravated by any movement, movement. Severity of symptoms: At their worst the symptoms were mild, in the emergency department the symptoms are unchanged. The patient has not experienced similar symptoms in the past. The patient has not recently seen a physician. Patient states that she has had pain in her left flank buttock area that radiates down to the top of her left foot. This started on Sunday. She has not had this before. She denies any other associated injury. She denies any associated symptoms. She has not seen another physician for this problem as yet. She has been otherwise in her usual state of health. She denies any pain with urination or any change in her bowel habits. She denies loss of control of her bowels or bladder.. Historical: - Allergies: 10:04 adhesive tape; jh5 10:04 Iodine; jh5 10:04 Morphine; jh5 - PMHx: 10:04 GERD; Glaucoma; High Cholesterol; Hypothyroidism; Hypertension; neuropathy; jh5 - Immunization history:: Adult Immunizations up to date. - Social history:: Smoking status: Patient denies any tobacco usage or history of. ROS: 17:12 Constitutional: Negative for fever, chills, and weight loss, Eyes: Negative for injury, kdr pain, redness, and discharge, ENT: Negative for injury, pain, and discharge, Neck: Negative for injury, pain, and swelling, Cardiovascular: Negative for chest pain, palpitations, and edema, Respiratory: Negative for shortness of breath, cough, wheezing, and pleuritic chest pain, Abdomen/GI: Negative for abdominal pain, nausea, vomiting, diarrhea, and constipation, : Negative for injury, bleeding, discharge, and swelling, MS/Extremity: Negative for injury and deformity, Skin: Negative for injury, rash, and discoloration, Psych: Negative for depression, anxiety, suicide ideation, homicidal ideation, and hallucinations, Allergy/Immunology: Negative for hives, rash, and allergies, Endocrine: Negative for neck swelling, polydipsia, polyuria, polyphagia, and marked weight changes, Hematologic/Lymphatic: Negative for swollen nodes, abnormal bleeding, and unusual bruising. 17:12 Back: Positive for injury or acute deformity, decreased range of motion, pain at rest, pain with movement, of the left low back. Exam: 17:12 Constitutional: This is a well developed, well nourished patient who is awake, alert, kdr and in no acute distress. Head/Face: Normocephalic, atraumatic. Eyes: Pupils equal round and reactive to light, extra-ocular motions intact. Lids and lashes normal. Conjunctiva and sclera are non-icteric and not injected. Cornea within normal limits. Periorbital areas with no swelling, redness, or edema. Neck: Trachea midline, no thyromegaly or masses palpated, and no cervical lymphadenopathy. Supple, full range of motion without nuchal rigidity, or vertebral point tenderness. No Meningismus. Chest/axilla: Normal chest wall appearance and motion. Nontender with no deformity. No lesions are appreciated. Cardiovascular: Regular rate and rhythm with a normal S1 and S2. No gallops, murmurs, or rubs. Normal PMI, no JVD. No pulse deficits. Respiratory: Lungs have equal breath sounds bilaterally, clear to auscultation and percussion. No rales, rhonchi or wheezes noted. No increased work of breathing, no retractions or nasal flaring. Abdomen/GI: Soft, non-tender, with normal bowel sounds. No distension or tympany. No guarding or rebound. No evidence of tenderness throughout. Back: No spinal tenderness. No costovertebral tenderness. Full range of motion. Skin: Warm, dry with normal turgor. Normal color with no rashes, no lesions, and no evidence of cellulitis. Neuro: Awake and alert, GCS 15, oriented to person, place, time, and situation. Cranial nerves II-XII grossly intact. Motor strength 5/5 in all extremities. Sensory grossly intact. Cerebellar exam normal. Normal gait. Psych: Awake, alert, with orientation to person, place and time. Behavior, mood, and affect are within normal limits. 17:12 Musculoskeletal/extremity: ROM: limited active range of motion, limited passive range of motion, in the left leg, Circulation is intact in all extremities. Sensation intact. Vital Signs: 10:02 BP 144 / 91; Pulse 88; Resp 20; Temp 98.9; Pulse Ox 98% ; Weight 70.31 kg; Height 5 ft. jh5 4 in. (162.56 cm); 12:04 BP 185 / 67; Pulse 84; Resp 16; Pulse Ox 99% on R/A; ab2 12:39 BP 164 / 64; Pulse 81; Resp 16; Pulse Ox 98% on R/A; ab2 10:02 Body Mass Index 26.61 (70.31 kg, 162.56 cm) 5 MDM: 12:29 Patient medically screened. kdr 17:12 Data reviewed: vital signs, nurses notes, radiologic studies. Counseling: I had a kdr detailed discussion with the patient and/or guardian regarding: the historical points, exam findings, and any diagnostic results supporting the discharge/admit diagnosis, the need for outpatient follow up. 06/19 11:59 Order name: Urine Dipstick-Ancillary; Complete Time: 12:08 EDMS 06/19 10:55 Order name: CT Lumbar Spine Wo Con; Complete Time: 12:08 kdr 06/19 10:56 Order name: Urine Dipstick-Ancillary (obtain specimen); Complete Time: 11:58 kdr Administered Medications: 11:15 CANCELLED (physician requestt): SOLU-Medrol (methylPrednisoLONE) 80 mg IVP once ab2 11:40 Drug: Acetaminophen-Codeine (300 mg-30 mg) 1 tablet Route: PO; ab2 12:41 Follow up: Response: No adverse reaction ab2 11:40 Drug: Ibuprofen 600 mg Route: PO; ab2 12:41 Follow up: Response: No adverse reaction ab2 11:40 Drug: SOLU-Medrol (methylPREDNISolone sodium succinate) 60 mg Route: IM; Site: left ab2 ventrogluteal; 12:40 Follow up: Response: No adverse reaction ab2 Disposition Summary: 06/19/21 12:29 Discharge Ordered Location: Home kdr Condition: Stable kdr Diagnosis - Left lower limb sciatic pain kdr Followup: kdr - With: Lula Pena MD - When: 2 - 3 days - Reason: If symptoms return, Further diagnostic work-up, Recheck today's complaints, Continuance of care, Re-evaluation by your physician Discharge Instructions: - Discharge Summary Sheet kdr - Sciatica, Eopc-fe-Hxgb kdr Forms: - Medication Reconciliation Form kdr - Thank You Letter kdr - Prescription Opioid Use kdr Prescriptions: - Ibuprofen 600 mg Oral Tablet - take 1 tablet by ORAL route every 6 hours As needed take with food; 15 tablet; kdr Refills: 0, Product Selection Permitted - Tramadol 50 mg Oral Tablet - take 1 tablet by ORAL route every 8 hours as needed; 12 tablet; Refills: 0, kdr Product Selection Permitted - Medrol (Isai) 4 mg Oral Tablets, Dose Pack - take 1 tablet by ORAL route as directed - follow package instructions; 1 kdr packet; Refills: 0, Product Selection Permitted Signatures: Dispatcher [employer] Ivan Holley MD MD kdr Neda Rehman, RN RN jh5 Shin Marques ab2 Corrections: (The following items were deleted from the chart) 11:15 10:55 SOLU-Medrol (methylPrednisoLONE) 80 mg IVP once ordered. kdr ab2
[2021-06-19 13:25] VITALS: TEMP 98.9
[2021-06-19 13:28] VITALS: BP 164/64; O2SAT 98
== END 2021-06-19 13:03 | disposition home or self-care (01) ==
LOC: ER 09:52
DX: M54.32 Sciatica, left side (principal); Z88.6 Allergy status to analgesic agent; Z91.09 Other allergy status, other than to drugs and biological substances
CPT/HCPCS: 81003; 72131; 96372; 99283; J2920

== ENCOUNTER 2021-07-22 07:09 | Day surgery (SDC) | payer OTHER, BC ==
--- NOTE | 2021-07-12 09:00 | EKG ---
Test Date: 2021-07-11 Test Time: 15:04:16 Enterprise Analyst: MAEVE MEASUREMENT RESULTS: Intervals: Rate: 63 CO: 160 QRSD: 116 QT: 450 QTc: 460 [place]: P: 74 CO: 160 QRS: -50 T: 15 INTERPRETIVE STATEMENTS: Normal sinus rhythm Incomplete right bundle branch block Left anterior fascicular block Abnormal ECG Compared to ECG 08/18/2020 16:38:34 Left anterior fascicular block now present Sinus bradycardia no longer present Electronically Signed On 07-12-21 08:57:32 LOGISTICS SERVICE REPRESENTATIVE by Andrew Manzo
[2021-07-22] MEDS ORDERED: BOTU TOX TYPE A 100 UNIT/VIAL ID ONE (07:41)
[2021-07-22] MEDS ORDERED: NA CHLORIDE 0.9% 1,000 ML ONE (07:53)
[2021-07-22] MEDS ORDERED: NS 0.9% VIAL 10 ML ONE (08:18)
[2021-07-22] MEDS ORDERED: EPINEPHRINE/PF 1 MG/ML AMP ONE (08:18)
[2021-07-22] MEDS ORDERED: ACETAMINOPHEN 500 MG TAB ONE (08:21)
[2021-07-22] MEDS ORDERED: LIDOCAINE 1% W/EPI 1:100,000 10 ML VIAL ONE (08:24)
[2021-07-22] MEDS ORDERED: LIDOCAINE 2% MPF 5 ML VIAL ONE (08:29)
[2021-07-22] MEDS ORDERED: FENTANYL CITR 100 MCG/2 ML ONE (08:29)
[2021-07-22] MEDS ORDERED: ROCURONIUM 50 MG/5 ML VIAL IV ONE ×2 (08:29→08:39)
[2021-07-22] MEDS ORDERED: dexAMETHasone 10 MG/ML VIAL ONE (08:29)
[2021-07-22] MEDS ORDERED: propofoL 200 MG/20 ML VIAL IV ONE (08:29)
[2021-07-22] MEDS ORDERED: EPHEDRINE SULF 50 MG/ML VIAL ONE (08:38)
[2021-07-22] MEDS ORDERED: GLYCOPYRROLATE 0.2 MG/ML SYR ONE (08:39)
[2021-07-22] MEDS ORDERED: NEOSTIGMINE 1 MG/ML -5 ML ONE (08:39)
--- NOTE | 2021-07-22 10:35 | P.OP ---
Tobacco Dipper: NONE,NONE Preoperative diagnosis: Cricopharyngeal spasm, dysphagia Postoperative diagnosis: Same Primary procedure: Rigid esophagoscopy with submucosal injection Anesthesia: General Estimated blood loss: Nil Specimen: None Findings: Prominent cricopharyngeal muscle Operative Technique: Patient was brought to the operating room. She is placed under general anesthesia via oral endotracheal tube. A small shoulder roll was placed and the neck was supported with a towel. The gingiva was protected with a gauze. The patient was noted to be endentulous. [facility] laryngoscope fitted with a rigid 15 degree laryngoscope. This was used to perform a brief laryngoscopy. There was no obvious abnormalities of the larynx noted. The tip was introduced into the esophageal introitus but was of insufficient length to access the cricopharyngeus muscle. Therefore it was removed. A small abrasion was noted on the posterior laryngeal wall. The cervical rigid esophagoscope was fitted with appropriate light source and we advanced through the oral cavity oropharynx and into the esophageal introitus. It was carefully advanced with direct visualization of the esophageal lumen. There was suspicion for esophageal stasis with secretions retained within the lumen of the esophagus. There was a very prominent cricopharyngeus muscle noted. There were difficulties fully evaluating the esophageal wall due to the retained secretions but in the visualized portions there were no obvious ulcerations or masses. After insertion to the full length of the scope, the tip of the esophagus scope was slowly withdrawn until the cricopharyngeus. 100 units bottle of botulinum toxin was reconstituted with 1.4 mL of sterile preservative-free saline for a concentration of 7 units per 0.1 mL of solution. The side kick needle was fitted with a 1 mL syringe and filled with botulinum toxin. Under direct visualization the needle was advanced through the esophagoscope and used to inject for aliquots of 0.1 mL of solution along the posterior aspect of the cricopharyngeus muscle. After injection the scope was briefly advanced over the injection site in order to provide some direct pressure and limit bleeding which was minimal. The scope was then slowly withdrawn. There was no evidence of immediate postoperative complication. The patient was returned to care of anesthesia for awakening extubation in the operating room which proceeded without difficulty Complications: None Implants: Botulinum toxin, diluted to 7 units per 0.1 mL. Total of 0.4 mL injected Fluids & blood products: See anesthesia record Transferred to: Recovery Room Condition: Good
[2021-07-22 13:29] VITALS: BP 140/53; TEMP 97.2; O2SAT 99
== END 2021-07-22 12:32 | disposition home or self-care (01) ==
LOC: PRE 07:09
PROVIDERS: ATTEND Otolaryngology
PROC: 3E0G8GC Introduction of Other Therapeutic Substance into Upper GI, Via Natural or Artificial Opening Endoscopic (ICD-10-PCS; principal; 2021-07-22 08:30)
DX: R13.10 Dysphagia, unspecified (principal); Z20.822 Contact with and (suspected) exposure to COVID-19; K21.9 Gastro-esophageal reflux disease without esophagitis; I10 Essential (primary) hypertension; E03.9 Hypothyroidism, unspecified; J45.909 Unspecified asthma, uncomplicated; E78.00 Pure hypercholesterolemia, unspecified
CPT/HCPCS: 93005; 36415; 84132; 82947; 43192; U0002; J2704; J0585; J3010; J1100; J2710; J7030; J0171

== ENCOUNTER 2021-11-25 10:54 | Day surgery (SDC) | payer OTHER, BC ==
[2021-11-25] MEDS ORDERED: NA CHLORIDE 0.9% 1,000 ML ONE (11:21)
[2021-11-25] MEDS ORDERED: NS 0.9% VIAL 10 ML ONE (11:48)
[2021-11-25] MEDS ORDERED: EPINEPHRINE/PF 1 MG/ML AMP ONE (11:49)
[2021-11-25] MEDS ORDERED: FENTANYL CITR 100 MCG/2 ML ONE (11:59)
[2021-11-25] MEDS ORDERED: LIDOCAINE 2% MPF 5 ML VIAL ONE (11:59)
[2021-11-25] MEDS ORDERED: propofoL 200 MG/20 ML VIAL IV ONE (11:59)
[2021-11-25] MEDS ORDERED: ONDANSETRON 4 MG/2 ML VIAL ONE (12:03)
[2021-11-25] MEDS ORDERED: ROCURONIUM 50 MG/5 ML VIAL IV ONE (13:04)
[2021-11-25] MEDS: BOTU TOX TYPE A 100 UNIT/VIAL ID ONE ×3 (13:08→13:13)
[2021-11-25] MEDS ORDERED: SUGAMMADEX SODIUM 200 MG/2 ML VIAL IV ONE (13:15)
--- NOTE | 2021-11-25 13:39 | P.OP ---
Clean Up Person: NONE,NONE Preoperative diagnosis: Cricopharyngeal spasm, dysphagia Postoperative diagnosis: Same Primary procedure: Rigid esophagoscopy with submucosal injection Anesthesia: General Estimated blood loss: nil Specimen: None Findings: Prominent cricopharyngeal muscle with otherwise normal-appearing esophageal Operative Technique: The patient was brought to the operating room and placed under general anesthesia via oral endotracheal tube. She was positioned supine. A small shoulder roll was placed and the neck was supported. The patient was noted to be in dentulous. The cervical rigid esophagoscope was fitted with appropriate light source and advanced through the oral cavity, oropharynx and into the esophageal introitus. It was carefully advanced with direct visualization of the esophageal lumen. The scope was advanced to its full length and foamy appearing secretions were suctioned from the lumen of the esophagus. The mucosa overall appeared to be without significant lesion, ulceration, or other abnormality. The scope was then slowly withdrawn until the cricopharyngeal muscle was clearly identified. Botulinum toxin, 100 units bottle, was reconstituted with 1.4 mL of sterile preservative-free saline for a concentration of 7 units per 0.1 mL of solution. The side kick needle was prefilled with approximately 0.5 mL of botulinum solution, then fitted to a 1 mL syringe filled with the remaining botulinum solution. Under direct visualization the needle was advanced through the esophagoscope and used to inject 4 aliquots of 0.1 mL solution along the posterior aspect of the cricopharyngeal muscle. Bleeding was minimal. The scope was slowly withdrawn. During the withdrawal, the arytenoids and vocal folds were briefly examined and appeared unremarkable, the epiglottis and vallecula likewise appeared unremarkable. Once the scope was completely withdrawn, the oral cavity including the gingiva was examined and there is no evidence of any injury. There is no evidence of immediate postoperative complication. The patient was returned to care of anesthesia for awakening and extubation in the operating room, which proceeded without difficulty. Complications: None Fluids & blood products: crystalloid 250ml Transferred to: Recovery Room Condition: Good
[2021-11-25 13:48] VITALS: O2SAT 97
[2021-11-25 14:33] VITALS: BP 131/59; TEMP 97.7
== END 2021-11-25 14:42 | disposition home or self-care (01) ==
LOC: OR 10:54
PROVIDERS: ATTEND Otolaryngology
PROC: 3E0G8GC Introduction of Other Therapeutic Substance into Upper GI, Via Natural or Artificial Opening Endoscopic (ICD-10-PCS; principal; 2021-11-25 12:30)
DX: R47.02 Dysphasia (principal); J39.2 Other diseases of pharynx; Z20.822 Contact with and (suspected) exposure to COVID-19
CPT/HCPCS: 82947 ×2; 43192; U0003; J2704; J0585; J3010; J7030; J2405; J0171

== ENCOUNTER 2022-05-19 08:49 | Day surgery (SDC) | payer OTHER, BC ==
--- NOTE | 2022-05-16 14:34 | EKG ---
Test Date: 2022-05-16 Test Time: 11:45:26 Traffic Workforce Representative: MELISSA MEASUREMENT RESULTS: Intervals: Rate: 57 CT: 160 QRSD: 104 QT: 434 QTc: 422 [place]: P: 46 CT: 160 QRS: -24 T: 10 INTERPRETIVE STATEMENTS: Sinus bradycardia Incomplete right bundle branch block Borderline ECG Compared to ECG 07/11/2021 15:04:16 Sinus rhythm no longer present Left anterior fascicular block no longer present Electronically Signed On 05-16-22 14:33:12 DINING ROOM SERVER by Anton Oconnor
[2022-05-19] MEDS ORDERED: NA CHLORIDE 0.9% 1,000 ML ONE (09:11)
[2022-05-19] MEDS ORDERED: BOTU TOX TYPE A 100 UNIT/VIAL ID ONE (11:56)
[2022-05-19] MEDS ORDERED: ROCURONIUM 50 MG/5 ML VIAL IV ONE (12:01)
[2022-05-19] MEDS ORDERED: dexAMETHasone 10 MG/ML VIAL ONE (12:01)
[2022-05-19] MEDS ORDERED: propofoL 200 MG/20 ML VIAL IV ONE (12:01)
[2022-05-19] MEDS ORDERED: FENTANYL CITR 100 MCG/2 ML ONE (12:01)
[2022-05-19] MEDS ORDERED: NS 0.9% VIAL 20 ML ONE (12:07)
[2022-05-19] MEDS ORDERED: NEOSTIGMINE 1 MG/ML -10 ML VIAL ONE (12:36)
[2022-05-19] MEDS ORDERED: GLYCOPYRROLATE 0.2 MG/ML SYR ONE (12:37)
--- NOTE | 2022-05-19 12:40 | P.OP ---
Senior Online Marketing Manager: NONE,NONE Preoperative diagnosis: Cricopharyngeal spasm, dysphagia Postoperative diagnosis: Same Primary procedure: Rigid esophagoscopy with injection of submucosal medication Anesthesia: General Estimated blood loss: None Specimen: None Findings: Prominent cricopharyngeal muscle with gastric fluid in the esophagus Operative Technique: After adequate plane of anesthesia, the head was relaxed for extension of the neck. The upper gingiva was protected with 4 x 4 gauze. The rigid cervical esophagoscope was passed through the oral cavity, oropharynx, and into the hypopharynx. Gastric juices were suctioned from the field. The esophagus scope was passed under direct visualization into the introitus of the esophagus. The prominent cricopharyngeal bar was noted and carefully transversed the upper portion of the esophagus appeared unremarkable other than contents of gastric juices. The esophagus scope was slowly withdrawn back to the level of the cricopharyngeus muscle. Botulinum toxin, diluted with preservative-free saline to a concentration of 7 units per 0.1 mL was injected in 4 aliquots of 0.1 mL into the cricopharyngeal muscle for total dose of 28 units. There was no evidence of bleeding or other immediate postoperative complication. The esophagoscope was removed and the gingiva inspected with no apparent injury. The procedure was concluded and the patient was returned to care of anesthesia for awakening and extubation in the operating room. Complications: None Implants: None Transferred to: Recovery Room Condition: Good
[2022-05-19] MEDS ORDERED: ESMOLOL HCL 0 ML IV ONE (13:04)
[2022-05-19] MEDS ORDERED: HYDRALAZINE HCL 20 MG/ML VIAL ONE (13:05)
[2022-05-19] MEDS ORDERED: VERAPAMIL HCL 10 MG/4 ML VIAL IV ONE (14:00)
[2022-05-19 14:29] VITALS: BP 117/49; TEMP 97.4; O2SAT 100
== END 2022-05-19 14:15 | disposition home or self-care (01) ==
LOC: OR 08:49
PROVIDERS: ATTEND Otolaryngology
PROC: 3E0D7GC Introduction of Other Therapeutic Substance into Mouth and Pharynx, Via Natural or Artificial Opening (ICD-10-PCS; principal; 2022-05-19 10:30)
DX: J38.5 Laryngeal spasm (principal); J39.2 Other diseases of pharynx; R13.10 Dysphagia, unspecified
CPT/HCPCS: 93005; 82947 ×2; 43192; J0360; J2704; J2710; J0585; J3010; J1100; A4216; J7030

== ENCOUNTER 2023-03-16 17:38 | Observation (INO) | payer OTHER, BC ==
--- OUTSIDE RECORDS SUMMARY | 2023-03-16 17:44 | XMS REPORT | Continuity of Care Document ---
:1935 Author Organization [facility] t Address [address] [place] [address] Care Team Providers Name Role Phone ANA HEATHER Tripathi Primary Care Physician Unavailable MARTA JOHNSON Attending Clinician Unavailable Suman Harris Attending Clinician Unavailable RABIA_Gregg_Yury_ALANIS Attending Clinician Unavailable Arley Ferrari Attending Clinician ARLEY DELGADILLO Attending Clinician Unavailable Doctor Unassigned, [place] Attending Clinician Unavailable GAVIN VALENTIN Attending Clinician Unavailable Lucia Laws PT Attending Clinician Unavailable Marta Johnson MD Attending Clinician _[facility]_Lara Attending Clinician Unavailable 1, [facility] Attending Clinician Unavailable Prashanth Stevenson MD Attending Clinician PRASHANTH STEVENSON Attending Clinician Unavailable Only, Adc Test Attending Clinician Unavailable Etienne Abdi MD Attending Clinician ETIENNE ABDI Attending Clinician Unavailable Yoselin Francisco PTA Attending Clinician Unavailable Korey Treadwell PT, Kimberly Attending Clinician Unavailable Joshua PTMaki Attending Clinician Unavailable Jay PTSandra Attending Clinician Unavailable Viki Willett PT Attending Clinician Unavailable Jacquie Simental RN Attending Clinician Unavailable Johnny RTVal Attending Clinician Unavailable Grant Haskins MD Attending Clinician Colby Monson MD Attending Clinician Светлана Wallace DO Attending Clinician GO SINGER Attending Clinician Unavailable Nurse, Adc Pob Immunization Attending Clinician Unavailable Go Singer DO Attending Clinician Pob, [facility] Main Attending Clinician Unavailable Tootie Cee Attending Clinician [phone] [place] CLIENT ACCOUNT REPRESENTATIVE, Adwoa Attending Clinician Nolan MORTAR CARRIER, Jose F Attending Clinician Unavailable MARTA JOHNSON Admitting Clinician Unavailable Suman Harris Admitting Clinician Unavailable KNOW, DOES_NOT Admitting Clinician Unavailable RABIA_Gregg_Yury_ALANIS Admitting Clinician Unavailable MARY_CHANTALE_Lara Admitting Clinician Unavailable Colby Monson MD Admitting Clinician Marta Johnson MD Admitting Clinician Payers Payer Name Policy Type Policy Number Effective Date Expiration Date S preet MEDICARE PART A AND [id number] 2001 B 00:00:00 [facility] [id number] 2017 00:00:00 MEDICARE PART A \T\ [id number] 2001 B 00:00:00 BCBS TRADITIONAL [id number] 2017 00:00:00 [place] [id number] [employer] SOL[employer]IONS 00:00:00 [place] [id number] 2017 (MEDICARE 00:00:00 SUPPLEMENT) Problems Condition Condition Condition Status Onset Resolution Last Treating Co mments Source Name Details Category Date Date Treatment Clinician Date Gait Gait Disease Active 2021-06 Univers instabilit instabilit 06-04 it y of y y 00:00: [address] Poor Poor Disease Active 2021-06 Univers balance balance 06-04 ity of 00:00: [place] 00 [facility] Generalize Generalize Disease Active 2021-06 U nivers d weakness d weakness 06-04 it y of 00:00: [place] 00 [facility] Vomiting Vomiting Disease Active 2020-06 Unive rs 0- ity of 00:00: [place] 00 [facility] Branch Primary Primary Disease Active Overview: Univ ers osteoarthr osteoarthr 12-20 Formattin ity of itis of itis of 00:00: g of this [place] right right 00 note Medical shoulder shoulder might be Bran ch different from the original. Added automatic ally from request for surgery [id number] Allergies, Adverse Reactions, Alerts Allergy Allergy Status Severity Reaction(s) Onset Inactive Treating Comm ents Source Name Type Date Date Clinician iodine DA Active U rash, 2022-06 [facility] itching, 0-04 [place] hives-CONTRA 00:00: [facility] morphine DA Active U headache, 2022-06 [facility] nausea 0-04 [place] 00:00: Orthope 00 [facility] adhesive DA Active SV TEARS SKIN 2022-06 [facility] tape 0-04 [place] 00:00: [facility]ope 00 [facility] iodine DA Active U rash, [facility] itching, 8 [place] hives 00:00: Orthope 00 [facility] morphine DA Active U headache, [facility] nausea 8 [place] 00:00: Orthope 00 [facility] latex DA Active SV redness, [facility] blister 8 [place] 00:00: Orthope 00 [facility] morphine DA Active U UNKNOWN [facility] 8-04 [place] 00:00: Orthope 00 [facility] Morphine Propensi Active Nausea Only U nivers ty to 207 ity of adverse 00:00: [place] reaction 00 Medical s Branch MORPHINE DRUG Active N/V Univers INGREDI 207 ity of 00:00: [place] 00 [facility] Branch Morphine Allergy Active Nausea [facility] to Medical substanc e Social History Social Habit Start Date Stop Date Quantity Comments Source History of tobacco Current smoker Un iversity of use [facility] Sexual orientation Univer sity of [facility] History of Social 2022-03-21 2022-03-21 Univers ity of function 00:00:00 00:00:00 [facility] Exposure to 2022-03-10 2022-03-20 Not sure University of SARS-CoV-2 (event) 00:00:00 10:49:00 [facility] Tobacco use and 2021-03-04 2021-03-04 Smokeless Universit y of exposure 00:00:00 00:00:00 tobacco non-user [facility] dical Branch Alcohol intake 2021-03-04 2021-03-04 Current drinker Unive rsity of 00:00:00 00:00:00 of alcohol [facility] (finding) Branch Tobacco Comment 2021-03-04 2021-03-04 pt quit 50 yrs Unive rsity of 00:00:00 00:00:00 ago [facility] Sex [birth year] Universit y of 00:00:00 00:00:00 [facility] Smoking Status Start Date Stop Date Source Ex-smoker 2021-03-04 00:00:00 2021-03-04 00:00:00 Universi ty of [facility] Medications Ordered Filled Start Stop Current Ordering Indication Dosage Frequency Signature Comments Components Source Medication Medication Date Date Medication? Clinician (SIG) Name Name triamcinolo 2022- No [id number] 40mg Univers ne 11-17 9109 ity of acetonide 17:45: 17:01 [place] (KENALOG) 00 :00 Medical injection Branch 40 mg triamcinolo 2022- No [id number] 40mg 40 mg, Univers ne 11-17 9109 Intramuscu ity of acetonide 17:45: 17:01 [place]CE, [place] 00 :00 1 dose, On Medi curly injection Fri Branch 40 mg 11/17/22 at 1245, Routine triamcinolo 2022- No [id number] 40mg Univers ne 11-17 9109 ity of acetonide 17:45: 17:01 [place] (KENALOG) 00 :00 Medical injection Branch 40 mg triamcinolo 2022- No [id number] 40mg 40 mg, Univers ne 11-17 9109 Intramuscu ity of acetonide 17:45: 17:01 [place]CE, [place] ([place]) 00 :00 1 dose, On Medi curly injection Fri Branch 40 mg 11/17/22 at 1245, Routine triamcinolo 2022- No [id number] 40mg Un zia ne 11-17-16 ity of acetonide 17:15: 16:22 [place] (KENALOG) 00 :00 Medical injection Branch 40 mg triamcinolo 2022- No [id number] 40mg 40 mg, Univers ne 11-17-16 Intramuscu ity of acetonide 17:15: 16:22 [place], [place]CE, [place] ([place]) 00 :00 1 dose, On Medi curly injection Fri Branch 40 mg 11/17/22 at 1215, Routine triamcinolo 2022- No [id number] 40mg Un zia ne 11-17 ity of acetonide 17:15: 16:22 [place] (KENALOG) 00 :00 Medical injection Branch 40 mg triamcinolo 2022- No [id number] 40mg 40 mg, Univers ne 11-17 Intramuscu ity of acetonide 17:15: 16:22 [place], ONCE, [place] ([place]) 00 :00 1 dose, On Medi curly injection Fri Branch 40 mg 11/17/22 at 1215, Routine triamcinolo 2021-06- No [id number] 40mg Univers ne 0-18 10-18 9100 ity of acetonide 19:30: 18:25 [place] (KENALOG) 00 :00 Medical injection Branch 40 mg triamcinolo 2021-06- No [id number] 80mg Univers ne 0-18 10-18 9100 ity of acetonide 19:30: 18:27 [place] (KENALOG) 00 :00 Medical injection Branch 80 mg triamcinolo 2021-06- No [id number] 80mg 80 mg, Univers ne 0-18 10-18 9100 Intramuscu ity of acetonide 19:30: 18:27 [place], ONCE, [place] (KE[place]LOG) 00 :00 1 dose, On Medi curly injection Tue Branch 80 mg 03/21/22 at 1430, Routine triamcinolo 2021-06- No [id number] 40mg 40 mg, Univers ne 0-18 10-18 9100 Intramuscu ity of acetonide 19:30: 18:25 [place], ONCE, [place] (KE[place]LOG) 00 :00 1 dose, On Medi curly injection Tue Branch 40 mg 03/21/22 at 1430, Routine traMADoL 50 2020-06 Yes [id number] 50mg Take [...] inhalation disk Cranberry 2020-06 Yes Take by Unive rs Extract 200 0-03 mouth. ity of mg Cap 13:23: [place] 04 Medical Branch omeprazole 2020-06 Yes 20mg Take 20 mg U nivers 20 mg 0-03 by mouth ity of capsule 13:23: daily. 04 Medical Branch brimonidine 2020-06 Yes brimonidin Univers 0.2 % 0-03 e 0.2 % ity of ophthalmic 13:23: [place] drops [place] solution [address] [place] [address] latanoprost 2020-06 Yes latanopros Univers , PF, 0.005 0-03 t 0.005 % ity of % Drop 13:23: eye drops [address] fluticasone 2020-06 Yes 1{puff} Inhale 1 Univers -salmeterol 0-03 Puff once ity of (ADVAIR 13:23: daily as [place] DISKUS) 04 needed. Medical 250-50 Branch mcg/dose inhalation disk Cranberry 2020-06 Yes Take by [employer] rs Extract 200 0-03 mouth. ity of mg Cap 13:23: [address] omeprazole 2020-06 Yes 20mg Take 20 mg U nivers 20 mg 0-03 by mouth ity of capsule 13:23: daily. [address] brimonidine 2020-06 Yes brimonidin Univers 0.2 % 0-03 e 0.2 % ity of ophthalmic 13:23: [place] drops [place] solution [address] [place] [address] latanoprost 2020-06 Yes latanopros Univers , PF, 0.005 0-03 t 0.005 % ity of % Drop 13:23: eye drops [address] fluticasone 2020-06 Yes 1{puff} Inhale 1 Univers -salmeterol 0-03 Puff once ity of (ADVAIR 13:23: daily as [place] DISKUS) 04 needed. [facility] 250-50 Branch mcg/dose inhalation disk Cranberry 2020-06 Yes Take by [employer] rs Extract 200 0-03 mouth. ity of mg Cap 13:23: [address] omeprazole 2020-06 Yes 20mg Take 20 mg U nivers 20 mg 0-03 by mouth ity of capsule 13:23: daily. [address] brimonidine 2020-06 Yes brimonidin Univers 0.2 % 0-03 e 0.2 % ity of ophthalmic 13:23: [place] drops [place] solution [address] [place] [address] latanoprost 2020-06 Yes latanopros Univers , PF, 0.005 0-03 t 0.005 % ity of % Drop 13:23: eye drops [address] fluticasone 2020-06 Yes 1{puff} Inhale 1 Univers -salmeterol 0-03 Puff once ity of (ADVAIR 13:23: daily as [place] DISKUS) 04 needed. Medical 250-50 Branch mcg/dose inhalation disk Cranberry 2020-06 Yes Take by Unive rs Extract 200 0-03 mouth. ity of mg Cap 13:23: [address] omeprazole 2020-06 Yes 20mg Take 20 mg U nivers 20 mg 0-03 by mouth ity of capsule 13:23: daily. [address] brimonidine 2020-06 Yes brimonidin Univers 0.2 % 0-03 e 0.2 % ity of ophthalmic 13:23: [place] drops [place] solution [address] [place] [address] latanoprost 2020-06 Yes latanopros Univers , PF, 0.005 0-03 t 0.005 % ity of % Drop 13:23: eye drops [address] fluticasone 2020-06 Yes 1{puff} Inhale 1 Univers -salmeterol 0-03 Puff once ity of (ADVAIR 13:23: daily as [place] DISKUS) 04 needed. Medical [address] Branch mcg/dose inhalation disk Cranberry 2020-06 Yes Take by [employer] rs Extract 200 0-03 mouth. ity of mg Cap 13:23: [address] omeprazole 2020-06 Yes 20mg Take 20 mg U nivers 20 mg 0-03 by mouth ity of capsule 13:23: daily. [address] brimonidine 2020-06 Yes brimonidin Univers 0.2 % 0-03 e 0.2 % ity of ophthalmic 13:23: eye drops [place] solution [facility] latanoprost 2020-06 Yes latanopros Univers , PF, 0.005 0-03 t 0.005 % ity of % Drop 13:23: eye drops [address] fluticasone 2020-06 Yes 1{puff} Inhale 1 Univers -salmeterol 0-03 Puff once ity of (ADVAIR 13:23: daily as [place] DISKUS) 04 needed. Medical 250-50 Branch mcg/dose inhalation disk Cranberry 2020-06 Yes Take by Unive rs Extract 200 0-03 mouth. ity of mg Cap 13:23: [address] omeprazole 2020-06 Yes 20mg Take 20 mg U nivers 20 mg 0-03 by mouth ity of capsule 13:23: daily. [address] brimonidine 2020-06 Yes brimonidin Univers 0.2 % 0-03 e 0.2 % ity of ophthalmic 13:23: [place] drops [place] solution [address] [place] [address] latanoprost 2020-06 Yes latanopros Univers , PF, 0.005 0-03 t 0.005 % ity of % Drop 13:23: eye drops [address] fluticasone 2020-06 Yes 1{puff} Inhale 1 Univers -salmeterol 0-03 Puff once ity of (ADVAIR 13:23: daily as [place] DISKUS) 04 needed. Medical 250-50 Branch mcg/dose inhalation disk Cranberry 2020-06 Yes Take by Unive rs Extract 200 0-03 mouth. ity of mg Cap 13:23: [address] omeprazole 2020-06 Yes 20mg Take 20 mg U nivers 20 mg 0-03 by mouth ity of capsule 13:23: daily. [address] brimonidine 2020-06 Yes brimonidin Univers 0.2 % 0-03 e 0.2 % ity of ophthalmic 13:23: [place] drops [place] solution [address] [place] [address] latanoprost 2020-06 Yes latanopros Univers , PF, 0.005 0-03 t 0.005 % ity of % Drop 13:23: eye drops [address] fluticasone 2020-06 Yes 1{puff} Inhale 1 Univers -salmeterol 0-03 Puff once ity of (ADVAIR 13:23: daily as [place] DISKUS) 04 needed. Medical 250-50 Branch mcg/dose inhalation disk Cranberry 2020-06 Yes Take by Unive rs Extract 200 0-03 mouth. ity of mg Cap 13:23: [address] omeprazole 2020-06 Yes 20mg Take 20 mg U nivers 20 mg 0-03 by mouth ity of capsule 13:23: daily. [address] brimonidine 2020-06 Yes brimonidin Univers 0.2 % 0-03 e 0.2 % ity of ophthalmic 13:23: eye drops [place] solution [address] [place] [address] latanoprost 2020-06 Yes latanopros Univers , PF, 0.005 0-03 t 0.005 % ity of % Drop 13:23: eye drops [address] fluticasone 2020-06 Yes 1{puff} Inhale 1 Univers -salmeterol 0-03 Puff once ity of (ADVAIR 13:23: daily as [place] DISKUS) 04 needed. Medical 250-50 Branch mcg/dose inhalation disk Cranberry 2020-06 Yes Take by [employer] rs Extract 200 0-03 mouth. ity of mg Cap 13:23: [address] omeprazole 2020-06 Yes 20mg Take 20 mg U nivers 20 mg 0-03 by mouth ity of capsule 13:23: daily. [address] brimonidine 2020-06 Yes brimonidin Univers 0.2 % 0-03 e 0.2 % ity of ophthalmic 13:23: eye drops [place] solution [address] [place] [address] latanoprost 2020-06 Yes latanopros Univers , PF, 0.005 0-03 t 0.005 % ity of % Drop 13:23: eye drops [address] fluticasone 2020-06 Yes 1{puff} Inhale 1 Univers -salmeterol 0-03 Puff once ity of (ADVAIR 13:23: daily as [place] DISKUS) 04 needed. Medical 250-50 Branch mcg/dose inhalation disk Cranberry 2020-06 Yes Take by [employer] rs Extract 200 0-03 mouth. ity of mg Cap 13:23: [address] omeprazole 2020-06 Yes 20mg Take 20 mg U nivers 20 mg 0-03 by mouth ity of capsule 13:23: daily. [address] brimonidine 2020-06 Yes brimonidin Univers 0.2 % 0-03 e 0.2 % ity of ophthalmic 13:23: eye drops [place] solution [address] [place] [address] latanoprost 2020-06 Yes latanopros Univers , PF, 0.005 0-03 t 0.005 % ity of % Drop 13:23: eye drops [address] fluticasone 2020-06 Yes 1{puff} Inhale 1 Univers -salmeterol 0-03 Puff once ity of (ADVAIR 13:23: daily as [place] DISKUS) 04 needed. Medical 250-50 Branch mcg/dose inhalation disk Cranberry 2020-06 Yes Take by [employer] rs Extract 200 0-03 mouth. ity of mg Cap 13:23: [address] omeprazole 2020-06 Yes 20mg Take 20 mg U nivers 20 mg 0-03 by mouth ity of capsule 13:23: daily. [address] brimonidine 2020-06 Yes brimonidin Univers 0.2 % 0-03 e 0.2 % ity of ophthalmic 13:23: eye drops [place] solution [facility] latanoprost 2020-06 Yes latanopros Univers , PF, 0.005 0-03 t 0.005 % ity of % Drop 13:23: eye drops [address] fluticasone 2020-06 Yes 1{puff} Inhale 1 Univers -salmeterol 0-03 Puff once ity of (ADVAIR 13:23: daily as [place] DISKUS) 04 needed. Medical [address] Branch mcg/dose inhalation disk Cranberry 2020-06 Yes Take by [employer] rs Extract 200 0-03 mouth. ity of mg Cap 13:23: [address] omeprazole 2020-06 Yes 20mg Take 20 mg U nivers 20 mg 0-03 by mouth ity of capsule 13:23: daily. [address] brimonidine 2020-06 Yes brimonidin Univers 0.2 % 0-03 e 0.2 % ity of ophthalmic 13:23: eye drops [place] solution [facility] latanoprost 2020-06 Yes latanopros Univers , PF, 0.005 0-03 t 0.005 % ity of % Drop 13:23: eye drops [address] fluticasone 2020-06 Yes 1{puff} Inhale 1 Univers -salmeterol 0-03 Puff once ity of (ADVAIR 13:23: daily as [place] DISKUS) 04 needed. Medical 250-50 Branch mcg/dose inhalation disk Cranberry 2020-06 Yes Take by [employer] rs Extract 200 0-03 mouth. ity of mg Cap 13:23: [address] omeprazole 2020-06 Yes 20mg Take 20 mg U nivers 20 mg 0-03 by mouth ity of capsule 13:23: daily. [address] brimonidine 2020-06 Yes brimonidin Univers 0.2 % 0-03 e 0.2 % ity of ophthalmic 13:23: eye drops [place] solution [address] [place] [address] latanoprost 2020-06 Yes latanopros Univers , PF, 0.005 0-03 t 0.005 % ity of % Drop 13:23: eye drops [address] fluticasone 2020-06 Yes 1{puff} Inhale 1 Univers -salmeterol 0-03 Puff once ity of (ADVAIR 13:23: daily as [place] DISKUS) 04 needed. Medical 250-50 Branch mcg/dose inhalation disk Cranberry 2020-06 Yes Take by [employer] rs Extract 200 0-03 mouth. ity of mg Cap 13:23: [address] omeprazole 2020-06 Yes 20mg Take 20 mg U nivers 20 mg 0-03 by mouth ity of capsule 13:23: daily. [address] brimonidine 2020-06 Yes brimonidin Univers 0.2 % 0-03 e 0.2 % ity of ophthalmic 13:23: eye drops [place] solution [address] [place] [address] latanoprost 2020-06 Yes latanopros Univers , PF, 0.005 0-03 t 0.005 % ity of % Drop 13:23: eye drops [address] fluticasone 2020-06 Yes 1{puff} Inhale 1 Univers -salmeterol 0-03 Puff once ity of (ADVAIR 13:23: daily as [place] DISKUS) 04 needed. Medical 250-50 Branch mcg/dose inhalation disk Cranberry 2020-06 Yes Take by [employer] rs Extract 200 0-03 mouth. ity of mg Cap 13:23: [address] omeprazole 2020-06 Yes 20mg Take 20 mg U nivers 20 mg 0-03 by mouth ity of capsule 13:23: daily. [address] brimonidine 2020-06 Yes brimonidin Univers 0.2 % 0-03 e 0.2 % ity of ophthalmic 13:23: eye drops [place] solution [address] [place] [address] latanoprost 2020-06 Yes latanopros Univers , PF, 0.005 0-03 t 0.005 % ity of % Drop 13:23: eye drops [place] 04 Medical Branch traMADoL 50 2020-0 Yes [id number] 50mg Take [...] 7-10). Indication s: acute pain traMADoL 50 1-0 Yes 4647 50mg Take 1 Univ ers mg tablet 7-27 tablet by ity o f 00:00: mouth [place] 00 every 4 Medical (four) Branch hours as needed for Pain (scale 7-10). Indication s: acute pain traMADoL 50 1-0 Yes 4647 50mg Take 1 Univ ers [...] (scale 7-10). Indication s: acute pain traZODone 2020-0 Yes Univers 50 mg 7-14 ity of tablet 00:00: Medical Branch traZODone 2020-0 Yes Univers 50 mg 7-14 ity of tablet 00:00: Medical Branch traZODone 2020-0 Yes Univers 50 mg 7-14 ity of tablet 00:00: Medical Branch traZODone 2020-0 Yes Univers 50 mg 7-14 ity of tablet 00:00: [place] 00 Medical Branch traZODone 0 Yes Univers 50 mg 7-14 ity of tablet 00:00: [place] [facility] traZODone 2020-0 Yes Univers 50 mg 7-14 ity of tablet 00:00: Medical Branch traZODone 2020-0 Yes Univers 50 mg 7-14 ity of tablet 00:00: Medical Branch traZODone 2020-0 Yes Univers 50 mg 7-14 ity of tablet 00:00: [place] [facility] traZODone 2020-0 Yes Univers 50 mg 7-14 ity of tablet 00:00: [place] [facility] traZODone 2020-0 Yes Univers 50 mg 7-14 ity of tablet 00:00: [place] [facility] traZODone 2020-0 Yes Univers 50 mg 7-14 ity of tablet 00:00: [place] [facility] traZODone 2020-0 Yes Univers 50 mg 7-14 ity of tablet 00:00: [place] [facility] traZODone 2020-0 Yes Univers 50 mg 7-14 ity of tablet 00:00: [place] [facility] traZODone 0 Yes Univers 50 mg 7-14 ity of tablet 00:00: [place] [facility] traZODone 2020-0 Yes Univers 50 mg 7-14 ity of tablet 00:00: [place] [facility] latanoprost 2017-0 Yes Univer s 0.005 % 6-05 ity of ophthalmic 00:00: [place] drops Medical Branch latanoprost 2018-0 Yes Univer s 0.005 % 6-05 ity of ophthalmic 00:00: [place] drops Medical Branch latanoprost 2018-0 Yes Univer s 0.005 % 6-05 ity of ophthalmic 00:00: [place] drops Medical Branch latanoprost 2018-0 Yes Univer s 0.005 % 6-05 ity of ophthalmic 00:00: [place] drops Medical Branch latanoprost 2018-0 Yes Univer s 0.005 % 6-05 ity of ophthalmic 00:00: [place] drops Medical Branch latanoprost 2018-0 Yes Univer s 0.005 % 6-05 ity of ophthalmic 00:00: drops Medical Branch latanoprost 2018-0 Yes Univer [...] 20 mg 6-03 ity of tablet 00:00: Medical Branch atorvastati 2018-0 Yes Univer s n 20 mg 6-03 ity of tablet 00:00: [place] [facility] atorvastati 2018-0 Yes Univer s n 20 mg 6-03 ity of tablet 00:00: [place] [facility] atorvastati 2018-0 Yes Univer s n 20 mg 6-03 ity of tablet 00:00: [place] [facility] atorvastati 2018-0 Yes Univer s n 20 mg 6-03 ity of tablet 00:00: [place] [facility] atorvastati 2018-0 Yes Univer s n 20 mg 6-03 ity of tablet 00:00: Medical Branch atorvastati 2018-0 Yes Univer s n 20 mg 6-03 ity of tablet 00:00: Medical Branch atorvastati 2018-0 Yes Univer s n 20 mg 6-03 ity of tablet 00:00: [place] [address] Medical Branch atorvastati 2018-0 Yes Univer s n 20 mg 6-03 ity of tablet 00:00: [place] [address] Medical Branch atorvastati 2018-0 Yes Univer s n 20 mg 6-03 ity of tablet 00:00: [place] [address] Medical Branch atorvastati 2018-0 Yes Univer s n 20 mg 6-03 ity of tablet 00:00: [place] [address] Medical Branch atorvastati 2018-0 Yes Univer s n 20 mg 6-03 ity of tablet 00:00: [place] [address] Medical Branch atorvastati 2018-0 Yes Univer s n 20 mg 6-03 ity of tablet 00:00: [place] [address] Medical Branch atorvastati 2018-0 Yes Univer s n 20 mg 6-03 ity of tablet 00:00: [place] [address] Medical Branch atorvastati 2018-0 Yes Univer s n 20 mg 6-03 ity of tablet 00:00: [address] Branch carvedilol 2018-0 Yes Univers 12.5 mg 5-29 ity of tablet 00:00: [address] Branch carvedilol 2018-0 Yes Univers 12.5 mg 5-29 ity of tablet 00:00: [address] Branch carvedilol 2018-0 Yes Univers 12.5 mg 5-29 ity of tablet 00:00: [address] Branch carvedilol 2018-0 Yes Univers 12.5 mg 5-29 ity of tablet 00:00: [address] Branch carvedilol 2018-0 Yes Univers 12.5 mg 5-29 ity of tablet 00:00: [place] [address] Medical Branch carvedilol 2018-0 Yes Univers 12.5 mg 5-29 ity of tablet 00:00: [place] [address] Medical Branch carvedilol 2018-0 Yes Univers 12.5 mg 5-29 ity of tablet 00:00: [place] [address] Medical Branch carvedilol 2018-0 Yes Univers 12.5 mg 5-29 ity of tablet 00:00: [place] [address] Medical Branch carvedilol 2018-0 Yes Univers 12.5 mg 5-29 ity of tablet 00:00: [place] [address] Medical Branch carvedilol 2018-0 Yes Univers 12.5 mg 5-29 ity of tablet 00:00: [place] [address] Medical Branch carvedilol 2018-0 Yes Univers 12.5 mg 5-29 ity of tablet 00:00: [address] carvedilol 0 Yes Univers 12.5 mg 5-29 ity of tablet 00:00: [address] carvedilol 2017-0 Yes Univers 12.5 mg 5-29 ity of tablet 00:00: [address] carvedilol 0 Yes Univers 12.5 mg 5-29 ity of tablet 00:00: [address] carvedilol 2017-0 Yes Univers 12.5 mg 5-29 ity of tablet 00:00: [address] famotidine Yes Univers 40 mg 5-21 ity of tablet 00:00: [address] famotidine Yes Univers 40 mg 5-21 ity of tablet 00:00: [address] famotidine Yes Univers 40 mg 5-21 ity of tablet 00:00: [address] famotidine Yes Univers 40 mg 5-21 ity of tablet 00:00: [address] famotidine Yes Univers 40 mg 5-21 ity of tablet 00:00: [address] famotidine Yes Univers 40 mg 5-21 ity of tablet 00:00: [address] famotidine 0 Yes Univers 40 mg 5-21 ity of tablet 00:00: [address] famotidine 0 Yes Univers 40 mg 5-21 ity of tablet 00:00: [address] famotidine Yes Univers 40 mg 5-21 ity of tablet 00:00: [address] famotidine 0 Yes Univers 40 mg 5-21 ity of tablet 00:00: [address] famotidine 0 Yes Univers 40 mg 5-21 ity of tablet 00:00: [address] famotidine 0 Yes Univers 40 mg 5-21 ity of tablet 00:00: [address] famotidine 0 Yes Univers 40 mg 5-21 ity of tablet 00:00: [address] famotidine 0 Yes Univers 40 mg 5-21 ity of tablet 00:00: [address] famotidine 0 Yes Univers 40 mg 5-21 ity of tablet 00:00: [place] [facility] gabapentin 2018-0 Yes Univers 600 mg 5-07 ity of tablet 00:00: [place] [address] [facility] Branch gabapentin 2018-0 Yes Univers 600 mg 5-07 ity of tablet 00:00: [place] [address] [facility] gabapentin 2018-0 Yes Univers 600 mg 5-07 ity of tablet 00:00: [place] [address] [facility] gabapentin 2018-0 Yes Univers 600 mg 5-07 ity of tablet 00:00: [place] [address] [facility] gabapentin 2018-0 Yes Univers 600 mg 5-07 ity of tablet 00:00: [place] [address] [facility] gabapentin 2018-0 Yes Univers 600 mg 5-07 ity of tablet 00:00: [place] [address] [facility] gabapentin 2018-0 Yes Univers 600 mg 5-07 ity of tablet 00:00: [place] [address] [facility] gabapentin 2018-0 Yes Univers 600 mg 5-07 ity of tablet 00:00: [place] [address] [facility] gabapentin 2018-0 Yes Univers 600 mg 5-07 ity of tablet 00:00: [place] [address] [facility] gabapentin 2018-0 Yes Univers 600 mg 5-07 ity of tablet 00:00: [place] [address] [facility] gabapentin 2018-0 Yes Univers 600 mg 5-07 ity of tablet 00:00: [place] [address] [facility] gabapentin 2018-0 Yes Univers 600 mg 5-07 ity of tablet 00:00: [place] [address] [facility] gabapentin 2018-0 Yes Univers 600 mg 5-07 ity of tablet 00:00: [place] [address] [facility] gabapentin 2018-0 Yes Univers 600 mg 5-07 ity of tablet 00:00: [place] [address] [facility] gabapentin 2018-0 Yes Univers 600 mg 5-07 ity of tablet 00:00: [place] [address] [facility] levothyroxi 2018-0 Yes Univer s ne 50 mcg 3-30 ity of tablet 00:00: [place] [address] [facility] levothyroxi 2018-0 Yes Univer s ne 50 mcg 3-30 ity of tablet 00:00: [place] [address] [facility] levothyroxi 2018-0 Yes Univer s ne 50 mcg 3-30 ity of tablet 00:00: [place] [address] [facility] levothyroxi 2018-0 Yes Univer s ne 50 mcg 3-30 ity of tablet 00:00: [place] [address] [facility] Branch levothyroxi 2018-0 Yes Univer s ne 50 mcg 3-30 ity of tablet 00:00: [place] [address] [facility] levothyroxi 2018-0 Yes Univer s ne 50 mcg 3-30 ity of tablet 00:00: [facility] levothyroxi 20180 Yes Univer s ne 50 mcg 3-30 ity of tablet 00:00: [facility] levothyroxi 0 Yes Univer s ne 50 mcg 3-30 ity of tablet 00:00: [facility] levothyroxi 0 Yes Univer s ne 50 mcg 3-30 ity of tablet 00:00: [facility] levothyroxi 0 Yes Univer s ne 50 mcg 3-30 ity of tablet 00:00: [facility] levothyroxi 0 Yes Univer s ne 50 mcg 3-30 ity of tablet 00:00: [facility] levothyroxi 0 Yes Univer s ne 50 mcg 3-30 ity of tablet 00:00: [facility] levothyroxi 0 Yes Univer s ne 50 mcg 3-30 ity of tablet 00:00: [address] levothyroxi 0 Yes Univer s ne 50 mcg 3-30 ity of tablet 00:00: [facility] levothyroxi 0 Yes Univer s ne 50 mcg 3-30 ity of tablet 00:00: [address] gabapentin gabapentin No gabapentin [facility] 600 mg 600 mg 600 mg Medical tablet tablet tablet Gas Relief Gas Relief No Gas Relief [facility] Extra Extra Extra Medical Strength Strength Strength 125 mg 125 mg 125 mg chewable chewable chewable tablet CHEW tablet CHEW tablet AND SWALLOW AND SWALLOW CHEW AND 1 TABLET BY 1 TABLET BY SWALLOW 1 MOUTH 1-3 MOUTH 1-3 TABLET BY TIMES A DAY TIMES A DAY MOUTH 1-3 TIMES A DAY latanoprost latanoprost No latanopros [facility] 0.005 % eye 0.005 % eye t 0.005 % Medical drops drops eye drops levothyroxi levothyroxi No levothyrox [facility] ne 50 mcg ne 50 mcg ine 50 mcg Medical tablet tablet tablet lisinopril lisinopril No lisinopril [facility] 20 mg 20 mg 20 mg Medical tablet tablet tablet lisinopril lisinopril No lisinopril [facility] 20 20 20 Medical mg-hydrochl mg-hydrochl mg-hydroch orothiazide orothiazide lorothiazi 12.5 mg 12.5 mg de 12.5 mg tablet tablet tablet metronidazo metronidazo No metronidaz [facility] le 500 mg le 500 mg ole 500 mg Medical tablet tablet tablet nitrofurant nitrofurant No nitrofuran [facility] oin oin toin Medical macrocrysta macrocrysta macrocryst l 100 mg l 100 mg al 100 mg capsule capsule capsule nitrofurant nitrofurant No nitrofuran [facility] oin oin toin Medical monohydrate monohydrate monohydrat /macrocryst /macrocryst e/macrocry als 100 mg als 100 mg stals 100 capsule capsule mg capsule ondansetron ondansetron No ondansetro [facility] 4 mg 4 mg n 4 mg Medical disintegrat disintegrat disintegra ing tablet ing tablet ting tablet Premarin Premarin No .5g Premarin Desiree via 0.625 0.625 0.625 Medical mg/gram mg/gram mg/gram vaginal vaginal vaginal cream cream cream Insert 0.5 Insert 0.5 Insert 0.5 g every 72 g every 72 g every 72 hours by hours by hours by vaginal vaginal vaginal route as route as route as directed directed directed for 30 for 30 for 30 days. days. days. promethazin promethazin No promethazi [facility] e 25 mg e 25 mg ne 25 mg Medic al tablet TAKE tablet TAKE tablet 1 TABLET BY 1 TABLET BY TAKE 1 MOUTH EVERY MOUTH EVERY TABLET BY 6 HOURS 6 HOURS MOUTH NEEDED FOR NEEDED FOR EVERY 6 NAUSEA NAUSEA HOURS NEEDED FOR NAUSEA Shingrix Shingrix No Shingrix Desiree via (PF) 50 (PF) 50 (PF) 50 Medica l mcg/0.5 mL mcg/0.5 mL mcg/0.5 mL intramuscul intramuscul intramuscu ar ar lar suspension, suspension, suspension kit kit , kit sulfamethox sulfamethox No sulfametho [facility] azole 800 azole 800 xazole 800 Medical mg-trimetho mg-trimetho mg-trimeth prim 160 mg prim 160 mg oprim 160 tablet tablet mg tablet tramadol tramadol No tramadol Desiree via 37.5 37.5 37.5 Medical mg-acetamin mg-acetamin mg-acetami ophen 325 ophen 325 nophen 325 mg tablet mg tablet mg tablet acetaminoph acetaminoph No acetaminop [facility] en 300 en 300 hen 300 Medical mg-codeine mg-codeine mg-codeine 30 mg 30 mg 30 mg tablet tablet tablet Advair Advair No Advair [facility] Diskus 250 Diskus 250 Diskus 250 Medical mcg-50 mcg-50 mcg-50 mcg/dose mcg/dose mcg/dose powder for powder for powder for inhalation inhalation inhalation amitriptyli amitriptyli No amitriptyl [facility] ne 10 mg ne 10 mg ine 10 mg Me dical tablet tablet tablet amlodipine amlodipine No amlodipine [facility] 5 mg tablet 5 mg tablet 5 mg M edical tablet atorvastati atorvastati No atorvastat [facility] n 20 mg n 20 mg in 20 mg Medic al tablet tablet tablet azithromyci azithromyci No azithromyc [facility] n 250 mg n 250 mg in 250 mg Me dical tablet tablet tablet azithromyci azithromyci No azithromyc [facility] n 500 mg n 500 mg in 500 mg Me dical tablet tablet tablet Boostrix Boostrix No Boostrix Desiree via Tdap 2.5 Lf Tdap 2.5 Lf Tdap 2.5 Medical unit-8 unit-8 Lf unit-8 mcg-5 mcg-5 mcg-5 Lf/0.5 mL Lf/0.5 mL Lf/0.5 mL intramuscul intramuscul intramuscu ar syringe ar syringe lar syringe brimonidine brimonidine No brimonidin [facility] 0.2 % eye 0.2 % eye e 0.2 % Me dical drops drops eye drops carvedilol carvedilol No carvedilol [facility] 12.5 mg 12.5 mg 12.5 mg Medica l tablet tablet tablet cefuroxime cefuroxime No 1 Q12H cefuroxime [facility] axetil 500 axetil 500 axetil 500 Medical mg tablet mg tablet mg tablet Take 1 Take 1 Take 1 tablet tablet tablet every 12 every 12 every 12 hours by hours by hours by oral route oral route oral route as directed as directed as for 10 for 10 directed days. days. for 10 days. cephalexin cephalexin No cephalexin [facility] 250 mg 250 mg 250 mg Medical capsule capsule capsule TAKE ONE TAKE ONE TAKE ONE CAPSULE BY CAPSULE BY CAPSULE BY MOUTH DAILY MOUTH DAILY MOUTH DIRECTED DIRECTED DAILY DIRECTED cephalexin cephalexin No cephalexin [facility] 500 mg 500 mg 500 mg Medical capsule capsule capsule ciprofloxac ciprofloxac No 1 Q12H ciprofloxa [facility] in 500 mg in 500 mg magy 500 mg Medical tablet Take tablet Take tablet 1 tablet 1 tablet Take 1 every 12 every 12 tablet hours by hours by every 12 oral route oral route hours by as directed as directed oral route for 10 for 10 as days. days. directed for 10 days. diclofenac diclofenac No diclofenac [facility] sodium 75 sodium 75 sodium 75 Medical mg mg mg tablet,chris tablet,chris tablet,del yed release yed release ayed release dorzolamide dorzolamide No dorzolamid [facility] 2 % eye 2 % eye e 2 % eye Medi curly drops drops drops estradiol estradiol No .5g estradiol [facility] 0.01% (0.1 0.01% (0.1 0.01% (0.1 Medical mg/gram) mg/gram) mg/gram) vaginal vaginal vaginal cream cream cream Insert 0.5 Insert 0.5 Insert 0.5 g by g by g by vaginal vaginal vaginal route as route as route as directed directed directed for 30 for 30 for 30 days. days. days. famotidine famotidine No famotidine [facility] 40 mg 40 mg 40 mg Medical tablet tablet tablet fluconazole fluconazole No fluconazol [facility] 150 mg 150 mg e 150 mg Medical tablet Take tablet Take tablet 1 tablet by 1 tablet by Take 1 oral route oral route tablet by as directed as directed oral route for 1 day. for 1 day. as directed for 1 day. fluticasone fluticasone No fluticason [facility] propionate propionate e Med ical 50 50 propionate mcg/actuati mcg/actuati 50 on nasal on nasal mcg/actuat spray,suspe spray,suspe ion nasal nsion nsion spray,susp ension Fluzone Fluzone No Fluzone [facility] High-Dose High-Dose High-Dose Medical [id number] (PF) 180 (PF) 180 (PF) 180 mcg/0.5 mL mcg/0.5 mL mcg/0.5 mL intramuscul intramuscul intramuscu ar syringe ar syringe lar ADM 0.5ML ADM 0.5ML syringe IM UTD IM UTD ADM 0.5ML IM UTD Immunizations Ordered Filled Date Status Comments Source Immunization Name Immunization Name SARS-COV-2 COVID-19 2021-02-10 Completed Unive rsity of MODERNA VACCINE 00:00:00 [place] [facility] SARS-COV-2 COVID-19 2021-02-10 Completed Unive rsity of MODERNA VACCINE 00:00:00 [place] [facility] SARS-COV-2 COVID-19 2021-02-10 Completed Unive rsity of MODERNA VACCINE 00:00:00 [place] [facility] ical Branch SARS-COV-2 COVID-19 2021-02-10 Completed Unive rsity of MODERNA VACCINE 00:00:00 [place] [facility] SARS-COV-2 COVID-19 2021-02-10 Completed Unive rsity of MODERNA VACCINE 00:00:00 [place] [facility] ical Branch SARS-COV-2 COVID-19 2021-02-10 Completed Unive rsity of MODERNA 12+ YRS 00:00:00 [place] [facility] ical VACCINE Branch SARS-COV-2 COVID-19 2021-02-10 Completed Unive rsity of MODERNA 12+ YRS 00:00:00 [place] [facility] ical VACCINE Branch SARS-COV-2 COVID-19 2021-02-10 Completed Unive rsity of MODERNA 12+ YRS 00:00:00 [place] [facility] ical VACCINE Branch SARS-COV-2 COVID-19 2021-02-10 Completed Unive rsity of MODERNA 12+ YRS 00:00:00 [place] [facility] ical VACCINE Branch SARS-COV-2 COVID-19 2021-02-10 Completed Unive rsity of MODERNA 12+ YRS 00:00:00 [place] [facility] ical VACCINE Branch SARS-COV-2 COVID-19 2021-02-10 Completed Unive rsity of MODERNA 12+ YRS 00:00:00 [place] [facility] ical VACCINE Branch SARS-COV-2 COVID-19 2021-02-10 Completed Unive rsity of MODERNA 12+ YRS 00:00:00 [place] [facility] ical VACCINE Branch SARS-COV-2 COVID-19 2021-02-10 Completed Unive rsity of MODERNA 12+ YRS 00:00:00 [place] [facility] ical VACCINE Branch SARS-COV-2 COVID-19 2021-02-10 Completed Unive rsity of MODERNA 12+ YRS 00:00:00 [facility] ical VACCINE Branch TDAP 2018-11-22 Completed University of 00:00:00 [facility] TDAP 2018-11-22 Completed University of 00:00:00 [place] [facility] TDAP 2018-11-22 Completed University of 00:00:00 [place] [facility] TDAP 2018-11-22 Completed University of 00:00:00 [place] [facility] TDAP 2018-11-22 Completed University of 00:00:00 [place] [facility] TDAP 2018-11-22 Completed University of 00:00:00 [place] [facility] TDAP 2018-11-22 Completed University of 00:00:00 [place] [facility] TDAP 2018-11-22 Completed University of 00:00:00 [place] [facility] TDAP 2018-11-22 Completed University of 00:00:00 [place] [facility] TDAP 2018-11-22 Completed University of 00:00:00 [place] [facility] TDAP 2018-11-22 Completed University of 00:00:00 [place] [facility] TDAP 2018-11-22 Completed University of 00:00:00 [place] [facility] TDAP 2018-11-22 Completed University of 00:00:00 [place] [facility] TDAP 2018-11-22 Completed University of 00:00:00 [facility] Zoster Vaccine 2018-01-18 Completed University of Recombinant 00:00:00 [facility] Zoster Vaccine 2018-01-18 Completed University of Recombinant 00:00:00 [facility] Zoster Vaccine 2018-01-18 Completed University of Recombinant 00:00:00 [facility] Zoster Vaccine 2018-01-18 Completed University of Recombinant 00:00:00 [facility] Zoster Vaccine 2018-01-18 Completed University of Recombinant 00:00:00 [facility] Zoster Vaccine 2018-01-18 Completed University of Recombinant 00:00:00 [facility] Zoster Vaccine 2018-01-18 Completed University of Recombinant 00:00:00 [facility] Zoster Vaccine 2018-01-18 Completed University of Recombinant 00:00:00 [facility] Zoster Vaccine 2018-01-18 Completed University of Recombinant 00:00:00 [place] [facility] Zoster Vaccine 2018-01-18 Completed University of Recombinant 00:00:00 [place] [facility] Zoster Vaccine 2018-01-18 Completed University of Recombinant 00:00:00 [facility] Zoster Vaccine 2018-01-18 Completed University of Recombinant 00:00:00 [facility] Zoster Vaccine 2018-01-18 Completed University of Recombinant 00:00:00 [facility] Zoster Vaccine 2018-01-18 Completed University of Recombinant 00:00:00 [facility] TDAP Unknown Completed [facility] Zoster Vaccine Unknown Completed [facility] SARS-COV-2 COVID-19 Unknown Com[facility]+ [facility] ical VACCINE Branch Vital Signs Vital Name Observation Time Observation Value Comments Source Systolic blood 2022-11-17 16:17:00 142 mm[Hg] Univer sity [facility] pressure Medical Branch Diastolic blood 2022-11-17 16:17:00 56 mm[facility]Hg[facility] Heart rate 2022-11-17 16:17:00 52 /min [facility]i ty [facility] Medical [place] Body height 2022-11-17 16:16:00 162.6 cm [facility] Medical [place] Body weight 2022-11-17 16:16:00 62.551 kg Universi ty [facility] Branch BMI 2022-11-17 16:16:00 23.67 kg/m2 [facility] Systolic blood 2022-03-21 15:34:00 138 mm[Hg] [facility] Diastolic blood 2022-03-21 15:34:00 72 mm[Hg] Unive [facility] Medical Branch Heart rate 2022-03-21 15:34:00 64 /min [facility]i ty [facility] Medical Branch Body height 2022-03-21 15:34:00 154.9 cm [facility] Medical Branch Body weight 2022-03-21 15:34:00 66.679 kg [facility] BMI 2022-03-21 15:34:00 27.78 kg/m2 [facility] Oxygen saturation 2022-03-21 15:34:00 98 /min [facility] in Arterial blood Medical Br anch by Pulse oximetry BP Diastolic 2020-09-14 00:00:00 62 mm[Hg] [facility] Height 2020-09-14 00:00:00 61 [in_i] [facility] BMI (Body Mass 2020-09-14 00:00:00 26.5 kg/m2 [facility] Medical Index) BP Systolic 2020-09-14 00:00:00 116 mm[Hg] [facility] Body Weight 2020-09-14 00:00:00 140 [lb_av] [facility] M edical Procedures Procedure Date / Time Performing Clinician Source Performed [facility] PATIENT FINANCIAL 2022-11-17 16:08:44 [facility] [place] [facility] CONSENT/REFUSAL FOR 2022-03-21 15:31:03 Doctor Unassigned, [facility] DIAGNOSIS AND TREATMENT [place] [facility] ASSIGNMENT OF BENEFITS 2021-09-01 15:36:52 [facility] [place] [facility] ASSIGNMENT OF BENEFITS 2021-08-04 20:54:34 [facility] [place] [facility] Hysterectomy with [facility] Oopherectomy (Ovaries Removed) Cataract Surgery Complex [facility] Tonsilectomy/adenoids [facility] ical Orthopedic - Arthroscopic [facility] Surgery Bowel to Bowel Fusion [facility] - Hip [facility] Replacement Prolapse, Abdominal [facility] al Repair: Enterocele Repair Cholecystectomy [facility] (Gallbladder) Appendectomy [facility] Hernia Repair [facility] Plan of Care Planned Activity Planned Date Details Comments Source Diagnostic Test 2020-09-15 00:00:00 urinalysis, complete [facility] Pending [code = urinalysis, complete] Diagnostic Test 2020-09-14 00:00:00 urinalysis, dipstick [facility] Pending [code = urinalysis, dipstick] Encounters Start End Encounter Admission Attending Care Care Encounter Source Date/Time Date/Time Type Type Clinicians Facility Department ID 2022-10-09 Outpatient [facility] [id number] [place] 13:34:25 [id number] [facility] 2022-10-04 Outpatient [facility] [id number] [place] 10:27:02 [id number] [facility] 2022-10-02 Outpatient [facility] [id number] [place] 09:15:23 [id number] [facility] 2022-10-02 Outpatient [facility] [id number] [place] 07:21:02 [id number] [facility] 2022-09-20 Outpatient [facility] [id number] [place] 09:46:40 [id number] [facility] 2021-04-05 Emergency [facility] [id number] Univers 02:59:47 ity of [place] [facility] 2021-04-04 Emergency [facility] [id number] [facility] Yohana JOHNSON, [facility] SOR [id number] Univers 09:11:17 [facility] [id number] [facility] 2023-03-07 2023-03-07 Outpatient EL Kimberly, [facility] [id number] [facility] 09:47:00 09:47:00 Suman [facility] 2023-01-08 2023-01-08 Outpatient EL Kimberly, [facility] [id number] [facility] 06:18:00 06:18:00 Mcewen 01 [facility] 2023-01-03 2023-01-03 Outpatient FOG_Stramel AOSM AOSM [id number] Elizabeth 00:00:00 00:00:00 _Yury_NP [id number] [facility] 2023-01-03 2023-01-03 Outpatient FOG_Stramel AOSM AOSM [id number] [place] 00:00:00 00:00:00 _Yury_NP [id number] [facility] 2023-01-03 2023-01-03 Outpatient FOG_Stramel AOSM AOSM [id number] [place] 00:00:00 00:00:00 _Yruy_NP [id number] [facility] 2023-01-03 2023-01-03 Outpatient FOG_Stramel AOSM AOSM [id number] [place] 00:00:00 00:00:00 _Yury_NP [id number] [facility] 2023-01-03 2023-01-03 Outpatient FOG_Stramel AOSM AOSM [id number] [place] 00:00:00 00:00:00 _Yury_NP [id number] [facility] 2023-01-03 2023-01-03 Outpatient FOG_Stramel AOSM AOSM [id number] [place] 00:00:00 00:00:00 _Yury_NP [id number] [facility] 2023-01-02 2023-01-02 Outpatient FOG_Stramel AOSM AOSM [id number] [place] 00:00:00 00:00:00 _Jacob_NP [id number] [facility] 2023-01-01 2023-01-01 Outpatient FOG_Stramel AOSM AOSM [id number] [place] 00:00:00 00:00:00 _Jacob_NP [id number] [facility] 2022-11-17 2022-11-17 [facility] [id number] Univers 11:15:00 11:30:00 Visit [facility] [id number] it y of CENTER [id number] Guillermo as OSWALDO?BLEA [id number] [address] MEDICAL OFFICE [facility] 2022-11-17 2022-11-17 [facility] [id number] Univers 11:15:00 11:15:00 ARLEY [facility] 2022-11-17 2022-11-17 Orders Doctor RONY [id number] [id number] Univers 00:00:00 00:00:00 Only Unassigned, DIANA [id number] ity of [place] [facility] [id number] Guillermo as [phone] [address] 2022-10-06 2022-10-06 Outpatient GAVIN VALENTIN [facility] [id number] [place] 10:30:00 10:30:00 Health 2022-04-06 2022-04-06 Outpatient Yohana JOHNSON [facility] [id number] Univers 14:30:00 14:30:00 MARTA gallo [facility] 2022-03-31 2022-03-31 Outpatient Yohana JOHNSON [facility] [id number] Univers 13:45:00 15:23:01 MARTA carl [facility] 2022-03-31 2022-03-31 Ancillary Lucia Laws [facility] 1.2.84 0.114 [id number] Univers 13:45:00 15:23:01 Visit Marta Johnson [id number] ity of [id number] [facility] [id number] [place] dical JESSY 179 [facility] 2022-03-21 2022-03-21 Outpatient R ELIZABETH [facility] [id number] Univers 10:44:38 23:59:00 MARTA itcarl [facility] 2022-03-21 2022-03-21 Office Leona [facility] [id number] Univers 11:00:00 11:26:31 Visit [facility] [id number] it y of [facility] [id number] Guillermo as OSWALDO?BLEA [id number] [place] dical KNEY 198 [facility] OFFICE [facility] 2022-03-21 2022-03-21 Orders Doctor RONY 1.2.840.114 [id number] Univers 00:00:00 00:00:00 Only Unassigned, DIANA [id number] ity of [place] [facility] [id number] Guillermo as [id number] [facility] [address] [place] 2021-09-18 2021-09-18 Outpatient [facility] PRIV PRIV [id number] [facility] 01:20:00 01:20:00 _Lara [id number] [facility] 2021-09-01 2021-09-01 Canvas Baster 1, Adc Lab [facility] 1.2.840.114 [id number] Univers 10:15:00 10:30:00 Visit Prashanth Stevenson [id number] [facility] [id number] [place] [facility] [id number] [facility] [address] [place] 2021-09-01 2021-09-01 Outpatient R GRAHAM [facility] [id number] Univers 10:15:00 10:15:00 PRASHANTH gallo [facility] 2021-09-01 2021-09-01 Orders Doctor URIBE 1.2.840.114 [id number] Univers 00:00:00 00:00:00 Only Unassigned, DIANA [id number] ity of [place] [facility] [id number] Guillermo as [id number] [facility] [address] [place] 2021-08-21 2021-08-21 Outpatient GC_[facility] PRIV PRIV [id number] [facility] 12:58:00 12:58:00 _Moshe-M [id number] [facility] 2021-08-04 2021-08-04 Laboratory Only, Adc Test [facility] 1.2.840. 114 [id number] Univers 15:15:00 15:30:00 Only Etienne Abdi [id number] ity of [place] [id number] [place] [facility] [id number] [facility] [address] 2021-08-04 2021-08-04 Outpatient R GLENDA [facility] [id number] Univers 15:15:00 15:15:00 [facility] 2021-08-04 2021-08-04 Orders Doctor URIBE 1.2.840.114 [id number] Univers 00:00:00 00:00:00 Only Unassigned, DIANA [id number] ity of [facility] [id number] Guillermo as [id number] [facility] [address] [place] 2021-07-24 2021-07-24 Outpatient GC_[facility]AWPR[facility] PRIV PRIV [id number] [facility] 01:10:00 01:10:00 _Moshe-M [id number] [facility] 2021-06-22 2021-06-22 Outpatient GC_[facility]AWPRC PRIV PRIV [id number] [facility] 11:11:00 11:11:00 _Moshe-M [id number] [facility] 2021-06-21 2021-06-21 Outpatient GC_SWHAWPRC PRIV PRIV [id number] [facility] 10:38:00 10:38:00 _Miller-M [id number] [facility] 2021-06-07 2021-06-07 Ancillary Yoselin Francisco [facility] 1.2.840 .114 [id number] Univers 08:40:00 09:20:00 Visit Marta Johnson 350.1.13.10 ity of [place] 4.2.7.2.686 [facility] [phone] Ks dical [facility] 179 [facility] 2021-06-072021-06-07 Outpatient R ELIZABETH [facility] [id number] Univers 08:40:00 08:40:00 MARTA gallo of [facility] 2021-06-02 2021-06-02 Ancillary Yoselin Francisco [facility] 1.2.840 .114 [id number] Univers 08:00:00 08:40:00 Visit Marta Johnson 350.1.13.10 it[place] of [place] [phone] [place] dical NAL 179 [facility] 2021-06-01 2021-06-01 Ancillary Kimberly Mcgovern [facility] 1 .2.840.114 [id number] Univers 08:00:00 10:11:08 Visit Marta Johnson 350.1.13.10 it[place] of [place] [phone] [place] dical NAL 179 [facility] 2021-05-26 2021-05-26 Ancillary Yoselin Francisco [facility] 1.2.840 .114 [id number] Univers 08:00:00 08:40:00 Visit Marta Johnson 350.1.13.10 ity of [place] [phone] [place]s dical NAL 179 [facility] 2021-05-19 2021-05-19 Outpatient R ELIZABETH [facility] [id number] Univers 09:00:00 13:36:59 MARTA gallo [facility] 2021-05-19 2021-05-19 Ancillary Yoselin Francisco [facility] 1.2.840 .114 [id number] Univers 09:00:00 13:36:59 Visit Marta Johnson 350.1.13.10 ity of [place] [phone] [place] dical NAL 179 [facility] 2021 2021 Ancillary Yoselin Francisco [facility] 1.2.840 .114 [id number] Univers 08:24:27 09:04:27 Visit Marta Johnson Mark CHAVIRA 350.1.13.10 ity of [place] 4.[place] [phone] Ks dical NAL [address] BUILDING 2021-05-12 2021-05-12 Ancillary Maki Lewis [facility] 1.2. 840.114 [id number] [facility] 09:07:45 09:47:45 Visit Elizabeth Marta CHAVIRA 350.1.13.10 it[place] of [place] [phone] Ks dical NAL [address] BUILDING 2021-05-10 2021-05-10 Ancillary Yoselin Francisco [facility] 1.2.840 .114 [id number] [facility] 08:14:36 09:10:52 Visit Johnson Marta CARBAJALSOFI 350.1.13.10 ity of [place] 4.[place] [phone] Ks dical NAL 179 [address] [facility] 2021-05-04 2021-05-04 Ancillary Yoselin Francisco [facility] 1.2.840 .114 [id number] [facility] 09:00:17 09:40:17 Visit Marta Johnson 350.1.13.10 ity of [place] [phone] Ks dical NAL 179 [facility] 2021-05-02 2021-05-02 Outpatient R ELIZABETH [facility] [id number] Univers 09:20:00 10:49:18 MARTA ity of [facility] 2021-05-02 2021-05-02 Ancillary Kimberly Mcgovern [facility] 1 .2.840.114 [id number] [facility] 08:55:20 10:49:18 Visit Marta Johnson 350.1.13.10 ity of [place] [phone] Ks dical NAL [address] [facility] 2021-04-27 2021-04-27 Ancillary Maki Lewis [facility] 1.2. 840.114 [id number] [facility] 10:25:37 11:05:37 Visit Johnson Marta CHAVIRA 350.1.13.10 ity of [place] 4.[place] [phone] Ks dical NAL [address] BUILDING 2021-04-26 2021-04-26 Ancillary Yoselin Francisco [facility] 1.2.840 .114 [id number] [facility] 11:21:18 12:01:18 Visit Johnson Marta CARBAJALSOFI 350.1.13.10 ity of [place] 4.[place] [phone] Ks dical NAL [address] BUILDING 2021-04-20 2021-04-20 Ancillary Yoselin Francisco [facility] 1.2.840 .114 [id number] [facility] 08:55:10 09:35:10 Visit Marta Johnson 350.1.13.10 ity of [place] 4.[place].2.[place] [phone] Ks dical NAL [address] [facility] 2021-04-13 2021-04-13 Ancillary Yoselin Francisco [facility] 1.2.840 .114 [id number] [facility] 09:00:14 09:40:14 Visit Marta Johnson 350.1.13.10 ity of [place] 4.[place].2.[place] [phone] Ks dical NAL [address] [facility] 2021-04-11 2021-04-11 Ancillary Sandra Thompson [facility] 1.2.840. 114 [id number] [facility] 08:56:10 16:47:24 Visit Marta Johnson 350.1.13.10 ity of [place] 4.[place] [phone] Ks dical NAL [address] [facility] 2021-04-08 2021-04-08 Ancillary Lucia Laws [facility] 1.2.84 0.114 [id number] [facility] 08:59:21 09:39:21 Visit Marta Johnson 350.1.13.10 ity of [place] 4.[place].2.[place] [phone] Ks dical NAL [address] [facility] 2021-04-06 2021-04-06 Ancillary Yoselin Francisco [facility] 1.2.840 .114 [id number] Univers 09:04:55 09:44:55 Visit Marta Johnson 350.1.13.10 ity of [place] 4.[place] [phone] Ks dical NAL [address] [facility] 2021-04-04 2021-04-04 Ancillary Lucia Laws [facility] 1.2.84 0.114 [id number] [facility] 10:12:57 10:52:57 Visit Marta Johnson 350.1.13.10 ity of [place] 4.[place].2.[place] [phone] Ks dical NAL 179 [facility] 2021-04-01 2021-04-01 Outpatient R ELIZABETH [facility] [id number] [facility] 13:40:00 14:26:09 MARTA ity of [facility] 2021-04-01 2021-04-01 Ancillary Yoselin Francisco [facility] 1.2.840 .114 [id number] [facility] 13:24:12 14:26:09 Visit Marta Johnson 350.1.13.10 ity of [place] 4.[place].2.[place] [id number] Ks dical NAL 179 [facility] 2021-03-29 2021-03-29 Ancillary Maki Lewis [facility] 1.2. 840.114 [id number] [facility] 09:07:25 09:47:25 Visit Marta Johnson 350.1.13.10 ity of [place].2.[place] [phone] Ks dical nal 179 Branch [facility] 2021-03-25 2021-03-25 Hospital Elizabeth [facility] 1.2.840.114 [id number] Univers 10:25:00 23:59:00 Encounter Marta Flores [facility] 350.1.13.10 ity of [place] 4.2.7.2.686 Guillermo as Oswaldo?Blea [phone] Me dicronaldo rodriguez 809 [facility] Office [facility] 2021-03-25 2021-03-25 Outpatient R LEONA [facility] [id number] Univers 10:45:00 10:45:00 ARLEY ity of [facility] 2021-03-25 2021-03-25 Office Leona [facility] 1.2.840.114 [id number] Univers 10:10:35 10:25:35 Visit Arley [facility] 350.1.13.10 it y of [place] 4.2.7.2.686 Guillermo as Oswaldo?Blea [phone] Me jermain rodriguez 198 [facility] Office [facility] 2021-03-17 2021-03-17 Ancillary Sandra Thompson [facility] 1.2.840. 114 [id number] Univers 13:26:55 15:19:10 Visit Marta Johnson 350.1.13.10 ity of [place] [phone] Ks dical nal 179 [facility] 2021-03-15 2021-03-15 Ancillary Sandra Thompson [facility] 1.2.840. 114 [id number] Univers 13:35:10 14:15:10 Visit Marta Johnson 350.1.13.10 ity of [place] [phone] Ks dical nal 179 [facility] 2021-03-10 2021-03-10 Ancillary Viki Willett [facility] 1.2.8 40.114 [id number] Univers 13:32:20 14:12:20 Visit Marta Johnson 350.1.13.10 ity of [place] [phone] Ks dical nal 179 [facility] 2021-03-08 2021-03-08 Ancillary Kimberly Mcgovern [facility] 1 .2.840.114 [id number] Univers 13:38:07 14:18:07 Visit Marta Johnson 350.1.13.10 ity of [place].2.[place] [phone] Ks dical nal [address] Building 2021-03-08 2021-03-08 Transition Venkat Simental 1.2.840.114 [id number] Univers 00:00:00 00:00:00 of Care Jacquie Moralez 350.1.13.10 it y of [place].2.[place] [phone] [facility] [address] 2021-03-07 2021-03-07 Telephone Johnny [facility] 1.2.383.194 [id number] Univers 00:00:00 00:00:00 [facility] 350.1.13.10 [place] y [place] [phone] [facility] Medical [address] Office Building 2021-03-07 2021-03-07 Patient Doctor RONY 1.2.840.114 [id number] Univers 00:00:00 00:00:00 Secure Msg Unassigned, DIANA 350.1.13.10 ity of [place] [facility] 4.2.7.2.686 Guillermo as [phone] [facility] 019 Branch 2021-03-04 2021-03-06 Hospital Grant Haskins [facility] 1.2.840.1 14 [id number] Univers 09:31:00 12:57:00 Encounter Colby Monson 350.1.13.10 it[place] of [place] [phone] [facility] 0[address] 2021-03-01 2021-03-01 Ancillary Viki Willett [facility] 1.2.8 40.114 [id number] Univers 14:25:13 15:05:13 Visit Marta Johnson 350.1.13.10 ity of [place] [phone] Ks dical nal [address] [place] [address] 2021-03-01 2021-03-01 Orders Doctor RONY 1.2.840.114 [id number] Univers 00:00:00 00:00:00 Only Unassigned, DIANA 350.1.13.10 ity of [place] [facility] 4.2.7.2.686 Guillermo as [phone] [facility] [address] [place] 2021-02-24 2021-02-24 Office Leona [facility] 1.2.840.114 [id number] Univers 10:19:44 10:34:44 Visit [facility] 350.1.13.10 it y of [place] 4.2.7.2.686 Guillermo as Oswaldo?Blea [phone] Ks dical kney 198 [facility] Office [facility] 2021-02-24 2021-02-24 Outpatient R LEONA [facility] [id number] Univers 10:30:00 10:30:00 ARLEYTREV gallo [facility] 2021-02-22 2021-02-22 Ancillary Yoselin Francisco [facility] 1.2.840 .114 [id number] Univers 13:03:21 14:22:13 Visit Marta Johnson 350.1.13.10 ity of [place] [phone] Ks dical nal 179 [facility] 2021-02-13 2021-02-13 Emergency Rodrigo [facility] 1.2.840.114 [id number] Univers 13:21:00 13:40:00 Светлана Chavira 350.1.13.10 ity of [place].2.[place] [phone] [facility] [address] [place] 2021-02-10 2021-02-10 Outpatient Yohana SINGER [facility] [id number] Univers 15:50:00 15:50:00 GO gallo [facility] 2021-02-10 2021-02-10 Imm/Inj Nurse, Adc Pob Immunization [facility] 1.2.840.114 [id number] Univers 14:30:28 14:30:37 Visit Go Singer 350.1.13 .10 ity of [place].2.[place] [phone] Ks dical nal 421 [facility] 2021-02-10 2021-02-10 Ancillary Maki Lewis [facility] 1.2. 840.114 [id number] Univers 13:41:23 14:21:23 Visit Marta Johnson 350.1.13.10 ity of [place] [phone] Ks dical nal [address] Building 2021-02-09 2021-02-09 Ancillary JoshuaMaki [facility] 1.2. 840.114 [id number] Univers 13:04:52 13:44:52 Visit Marta Johnson 350.1.13.10 it[place] of [place] [phone] Ks dical nal [address] Building 2021-02-03 2021-02-03 Ancillary Yoselin Frnacisco [facility] 1.2.840 .114 [id number] Univers 13:41:56 14:24:39 Visit Marta Johnson 350.1.13.10 it[place] of [place] [phone] Ks dical nal 179 [address] [facility] 2021-02-03 2021-02-03 Outpatient [facility] [id number] Univers 13:40:00 13:40:00 ity of [facility] 2021-02-01 2021-02-01 Ancillary Joshua Maki A [facility] 1.2. 840.114 [id number] Univers 14:12:47 14:52:47 Visit Marta Johnson 350.1.13.10 it[place] of [place] [phone] Ks dical nal [address] Building 2021-01-27 2021-01-27 Ancillary Viki Monroe [facility] 1.2.840. 114 [id number] Univers 12:58:46 13:42:22 Visit Marta Johnson 350.1.13.10 ity of [place].2.[place] [phone] Ks dical nal [address] Building 2021-01-27 2021-01-27 [facility] [id number] Univers 13:00:00 13:00:00 MARTA gallo [facility] 2021-01-24 2021-01-24 [facility] [id number] Univers 13:45:00 13:45:00 MARTA gallo [facility] 2021-01-10 2021-01-10 [facility] 1.2.840.114 [id number] Univers 13:54:40 23:59:00 Encounter Marta Chavira 350.1.13.10 ity of [place].2.[place] [phone] [facility] [address] 2021-01-10 2021-01-10 [facility] 1.2.331.573 [id number] Univers 14:27:04 15:14:37 Visit Marta Buckley 350.1.13.10 it y of [place] 4.2.7.2.686 Guillermo as Specialti [phone] Ks dical es 198 [facility] 2021-01-10 2021-01-10 [facility] [id number] Univers 14:45:00 14:45:00 MARTA gallo [facility] 2021-01-10 2021-01-10 Telephone [facility] 1.2.840.114 [id number] Univers 00:00:00 00:00:00 Marta Buckley 350.1.13.10 it y of [place] 4.2.7.2.686 Guillermo as Specialti [phone] Ks dical es 198 [facility] 2021-01-10 2021-01-10 Orders Doctor RONY 1.2.840.114 [id number] Univers 00:00:00 00:00:00 Only Unassigned, DIANA 350.1.13.10 ity of [place] [facility] 4.2.7.2.686 Guillermo as [phone] [facility] [address] 2020-12-31 2020-12-31 Transition Venkat Simental 1.2.840.114 [id number] Univers 00:00:00 00:00:00 of Care Jacquie Moralez 350.1.13.10 it y of [place] 4[place]2.[place].2.[place] [phone] [facility] [address] 2020-12-27 2020-12-30 Hospital Marta Johnson [facility] 1.2.840 .114 [id number] Univers 06:41:00 15:15:00 Encounter Arley Delgadillo 350.1.13.10 ity of [place] [phone] [facility] [address] 2020-12-27 2020-12-27 Surgery [facility] 1.2.297.652 [id number] Univers 07:30:00 10:23:00 Marta Chavira 350.1.13.10 i ty [place].2.[place] [phone] [facility] 0[address] 2020-12-27 2020-12-27 Orders Doctor RONY 1.2.840.114 [id number] Univers 00:00:00 00:00:00 Only Unassigned, DIANA 350.1.13.10 ity of [place] [facility] 4.2.7.2.686 Guillermo as [phone] [facility] [address] 2020-12-24 2020-12-24 Hospital [facility] 1.2.840.114 [id number] Univers 09:29:32 23:59:00 Encounter Marta Chavira 350.1.13.10 it[place] of [place] [phone] [facility] 8[address] 2020-12-24 2020-12-24 Canvas Baster Jeffery, Rufus Lab Main [facility] 1.2.8 40.114 [id number] Univers 09:28:46 09:43:46 Visit Marta Johnson 350.1.13.10 it[place] of [place] [phone] Ks dical nal 353 [address] [facility] 2020-12-24 2020-12-24 [facility] [id number] Univers 08:45:00 08:45:00 MARTA ity [facility] 2020-12-23 2020-12-23 Outpatient R ELIZABETH [facility] [id number] Univers 13:00:00 13:00:00 MARTA gallo [facility] 2020-12-22 2020-12-22 Outpatient R ELIZABETH [facility] [id number] Univers 09:45:00 09:45:00 MARTA gallo [facility] 2020-12-22 2020-12-22 Canvas Baster Jeffery, Rufus Lab Main [facility] 1.2.8 40.114 [id number] Univers 09:28:20 09:43:20 Visit Marta Johnson 350.1.13.10 it[place] of [place] 4[place].2.686 [place] [facility] [phone] Me dical nal 353 [facility] 2020-12-22 2020-12-22 Orders Doctor RONY 1.2.840.114 [id number] Univers 00:00:00 00:00:00 Only Unassigned, DIANA 350.1.13.10 ity of [place] [facility] 4.2.7.2.686 Guillermo as [phone] [address] 2020-12-20 2020-12-20 Prep For Elizabeth [facility] 1.2.840.114 [id number] Univers 00:00:00 00:00:00 Surgery Marta Flores Health 350.1.13.10 it y of Surgical 4.2.7.2.686 Guillermo as Specialti [phone] Me dical es 198 [facility] 2020-12-16 2020-12-16 Office Leona [facility] 1.2.840.114 [id number] Univers 13:40:52 13:55:52 Visit Arley Buckley 350.1.13.10 it y of [place] 4.2.7.2.686 Guillermo as Specialti [phone] Ks dical es 198 [facility] 2020-12-16 2020-12-16 Outpatient Yohana DELGADILLO [facility] [id number] Univers 13:45:00 13:45:00 ARLEY itcarl [facility] 2020-12-16 2020-12-16 Outpatient Yohana DELGADILLO [facility] [id number] Univers 13:45:00 13:45:00 ARLEY gallo [facility] 2020-11-22 2020-11-22 Outpatient R ELIZABETH [facility] [id number] Univers 16:15:00 16:15:00 MARTA gallo [facility] 2020-11-22 2020-11-22 [facility] 1.2.566.347 [id number] Univers 15:17:32 15:56:16 Visit Marta Flores [facility] 350.1.13.10 it y of Surgical 4.2.7.2.686 Guillermo as Specialti [phone] Me dical es 198 [facility] 2020-09-16 2020-09-16 Outpatient [facility] PRIV PRIV [id number] [facility] 11:38:00 11:38:00 _Lara [id number] [facility] 2020-09-14 2020-09-14 Outpatient [facility] PRIV PRIV [id number] [facility] 01:43:00 01:43:00 _Lara [id number] [facility] 2020-09-14 2020-09-14 [facility] [id number] [facility] 00:00:00 00:00:00 [facility] Health - Medic al [facility] MD wai: _[address], [address], [place] [address] , Ph. 2020-09-14 2020-09-14 Outpatient [facility] PRIV [id number] 00:00:00 00:00:00 Tootie tong [id number] Berta [id number] 2020-08-31 2020-08-31 Office Leona [facility] 1.2.840.114 [id number] Univers 09:45:50 10:00:50 Visit Arley Tong [facility] 350.1.13.10 it y of Surgical 4.2.7.2.686 Guillermo as Specialti [phone] Me dical es 198 [facility] 2020-08-31 2020-08-31 Outpatient Yohana DELGAIDLLO [facility] [id number] Univers 10:00:00 10:00:00 ARLEYTREV gallo [facility] 2020-08-16 2020-08-16 Office [facility] 1.2.442.447 [id number] Univers 13:36:09 14:33:13 Visit Marta Buckley 350.1.13.10 it y of Surgical 4.2.7.2.686 Guillermo as Specialti [phone] Ks dical es 198 [facility] 2020-08-16 2020-08-16 [facility] [id number] Univers 14:00:00 14:00:00 MARTA gallo [facility] 2020-08-16 2020-08-16 [facility]phone [facility] 1.2.840.114 [id number] Univers 00:00:00 00:00:00 Marta Chavira 350.1.13.10 i [place] [phone] Ks dical nal 198 [facility] 2020-08-13 2020-08-13 [facility]phone [facility] 1.2.840.114 [id number] Univers 00:00:00 00:00:00 Marta Buckley 350.1.13.10 it y of Surgical 4.2.7.2.686 Guillermo as Specialti [phone] Ks dical es 198 [facility] 2020-08-12 2020-08-12 Emergency [facility] 1.2.840.114 [id number] Univers 16:16:00 18:33:00 Adwoa Mina 350.1.13.10 i [place] [phone] [facility] [address] 2020-08-12 2020-08-12 Orders Doctor RONY 1.2.840.114 [id number] Univers 00:00:00 00:00:00 Only Unassigned, DIANA 350.1.13.10 ity of [place] [facility] 4.2.7.2.686 Guillermo as [phone] [facility] [address] [place] 2020-06-02 2020-06-02 Office [facility] 1.2.577.845 [id number] Univers 13:10:39 13:46:45 Visit Marta Buckley 350.1.13.10 it y of Surgical 4.2.7.2.686 Guillermo as Specialti [id number] Ks dical es 198 [facility] 2020-06-02 2020-06-02 [facility] [id number] Univers 13:30:00 13:30:00 MARTA gallo [facility] 2020-06-01 2020-06-01 [facility] [id number] Univers 14:21:09 23:59:00 MARTA gallo [facility] 2020-06-01 2020-06-01 [facility] 1.2.840.114 [id number] Univers 14:21:09 23:59:00 Encounter Marta Chavira 350.1.13.10 ity of [place].2.7.2.686 [place] [facility] [phone] [facility] [address] [place] 2020-05-07 2020-05-07 Office [facility] 1.2.618.585 [id number] Univers 08:18:47 09:19:17 Visit Marta Buckley 350.1.13.10 it y of Surgical 4.2.7.2.686 Guillermo as Specialti [phone] Ks dical es 198 [facility] 2020-05-07 2020-05-07 [facility] [id number] Univers 08:30:00 08:30:00 MARTA gallo [facility] 2020-05-07 2020-05-07 Telephone [facility] 1.2.840.114 [id number] Univers 00:00:00 00:00:00 Marta Flores Health 350.1.13.10 it y of Surgical 4.2.7.2.686 Guillermo as Specialti [phone] Ks dical es 198 [facility] 2020-03-25 2020-03-25 Telephone [facility] 1.2.124.161 [id number] Univers 00:00:00 00:00:00 Arley S Health 350.1.13.10 it y of Surgical 4.2.7.2.686 Guillermo as Specialti [id number] Ks dical es 198 [facility] 2020-03-15 2020-03-15 Outpatient R ELIZABETH [facility] [id number] Univers 16:00:00 16:00:00 MARTA gallo [facility] 2020-03-15 2020-03-15 Office Arley Delgadillo [facility] 1.2.840.114 [id number] Univers 15:44:53 15:59:53 Visit Marta Johnson [facility] 350.1.13.10 ity of Surgical 4.2.7.2.686 Guillermo as Specialti [phone] Ks dical es 198 [facility] 2020-02-26 2020-02-26 Hospital Elizabeth [facility] 1.2.840.114 [id number] Univers 14:09:46 23:59:00 Encounter Marta Flores Health 350.1.13.10 ity of Surgical 4.2.7.2.686 Guillermo as Specialti [phone] Ks dicronaldo es 809 [facility] 2020-02-26 2020-02-26 Office Elizabeth [facility] [id number] Univers 13:13:37 15:25:31 Visit Marta Flores [facility] [id number] it y of Surgical [id number] Guillermo as Specialti [phone] [place] dicronaldo es 198 [facility] 2020-02-26 2020-02-26 Outpatient R ELIZABETH [facility] [id number] Univers 13:30:00 13:30:00 MARTA gallo [facility] 2020-02-26 2020-02-26 Orders Doctor URIBE 1.2.840.114 [id number] Univers 00:00:00 00:00:00 Only Unassigned, DIANA [id number] ity of [place] [facility] 4.2.7.2.686 Guillermo as [phone] [address] 2019-08-13 2019-08-13 Outpatient R ELIZABETH [facility] [id number] Univers 13:40:00 13:40:00 MARTA gallo [facility] 2019-07-17 2019-08-12 Ancillary Yoselin Francisco [facility] 1.2.840 .114 [id number] Univers 14:12:49 16:34:23 Visit Marta Johnson [id number] [place].2.[place] [phone] [place] 179 [facility] 2019-07-17 2019-08-12 Ancillary Nolan [facility] [id number] 14:12:49 16:34:23 Visit Yoselingbay Chavira [id number] [place] 4.2.7.2.686 Professio [phone] [facility] 179 [facility] 2019-07-29 2019-07-29 Outpatient R ELIZABETH [facility] [id number] Univers 13:00:00 13:00:00 MARTA ity [facility] 2019-07-23 2019-07-23 Ancillary Yoselin Francisco [facility] 1.2.840 .114 [id number] Univers 13:39:15 14:19:15 Visit Marta Johnson [id number] [place] [phone] [place] [facility] 179 [facility] 2019-07-21 2019-07-21 Office Elizabeth [facility] [id number] Univers 15:36:27 16:19:42 Visit Marta Flores [facility] [id number] it y of Surgical 4.2.7.2.686 [place] as Specialti [phone] [place]ical 198 [facility] 2019-07-15 2019-07-15 Ancillary Yoselin Francisco [facility] 1.2.840 .114 [id number] Univers 14:12:07 14:52:07 Visit Marta Johnson [id number] [place] [phone] [place] 179 [facility] 2019-07-10 2019-07-10 Ancillary Yoselin Francisco [facility] 1.2.840 .114 [id number] Univers 13:01:35 13:41:35 Visit Marta Johnson [id number] [place] [phone] [place] 179 [facility] 2019-07-08 2019-07-08 Ancillary Jose Francisco [facility] 1.2.840. 114 [id number] Univers 15:31:30 16:33:27 Visit Marta Johnson [id number] [place] [phone] [place] 179 [facility] 2019-07-03 2019-07-03 Ancillary Yoselin Francisco [facility] 1.2.840 .114 [id number] [facility] 13:04:32 13:49:32 Visit Marta Johnson 350.1.13.10 [place] [phone] [place] 179 [facility] 2019-06-19 2019-06-19 Ancillary Yoselin Francisco [facility] 1.2.840 .114 [id number] [facility] 13:53:57 14:38:57 Visit Marta Johnson [id number] [place] [phone] [place] dics[place]al 179 [facility] Results Test Description Test Time Test Comments Results Result [facility] e Comments - XR FLUORO FOR 2023-03-07 SPINE INJ 15:23:00 [facility] 1935 Sex: F Patient Name: KD DIGGS Unit No: [id number] EXAMS: CPT CODE: [id number] XR FLUORO FOR SPINE INJ 57627 LUMBAR EPIRADICULAR INJECTION PREOPERATIVE DIAGNOSIS: Lumbar Radiculitis POSTOPERATIVE DIAGNOSIS: As above PROCEDURES PERFORMED: Fluoroscopically guided needle localization of the bilateral L4, L5, S1 spinal nerves with transforaminal epidurograms and epidural injection of local anesthetic and steroid. FINDINGS: Preinjection VAS 7/10. Postinjection VAS 0/10. Steroid response pending follow-up. ESTIMATED BLOOD LOSS: Minimal ANESTHESIA: TIVA COMPLICATIONS: None DETAILS OF PROCEDURE: After obtaining stable vital signs, informed consent and IV access, with no contraindications, the patient was taken to the operating room and placed in a prone position with all extremities padded and appropriate monitors placed. The patient was sterilely prepped and draped over the lumbosacral spine. Using fluoroscopic visualization the insertion sites were marked for paravertebral approaches and using standard technique, a 25 gauge needle was advanced to the base of each pedicle without paresthesias. Isovue-300 contrast 0.2 mL of was injected at each level incrementally with frequent negative aspirations to produce each epidurogram. There were no signs of intravascular or intrathecal uptake. Bupivicaine 0.75% 0.25 mL with lidocaine 4% 0.5 mL and Decadron 5 mg was then incrementally injected with frequent negative aspirations at each level and again there were no signs of intravascular or intrathecal uptake. The needles were removed and the patient was taken to the PACU in good condition. Image: Image 1 Image: Image 2 at 1523 Reported and signed by: KIMBERLY FARAH MD CC: Suman Harris MD Technologist: YASIR SPICER ARRT Transcribed D/ (1523) tROHAN.[facility] NAME: KD DIGGS [address] [facility] PHYS: Suman Santos MD [employer] [employer], [place] [address] : 1935 AGE: 87 SEX: F LOC: MAME PHONE #: [phone] EXAM DATE: 03/07/2023 STATUS: [facility] FAX #: [phone] RAD #: D/C DT PAGE 1 Signed Report Patient Name: KD DIGGS Unit No: [id number] EXAMS: CPT CODE: [id number] XR FLUORO FOR SPINE INJ [id number] (Continued) Orig Print D/T: S: 03/07/2023 (1527) [facility] NAME: KD DIGGS [address] [facility] PHYS: Suman Santos MD [place] [employer] [employer], [place] [address] : 1935 AGE: 87 SEX: F LOC: MAME PHONE #: [phone] EXAM DATE: 03/07/2023 STATUS: REG [facility] FAX #: [phone] RAD #: D/C DT PAGE 2 Signed Report GLUBED 2023-03-07 14:14:00 Test Item Value Reference Range Interpretation Comme nts GLUBED (test code = GLUBED) 108 mg/dL 60-99 H The normal fasting blood glucose range for a non-diabe ticadult is 60-99 mg/dL. Two hours after meals, normal blood glucose levels should beless than 140 mg/dL.Please no te new normal range. [id number] 14:32:00 Test Item Value Reference Range Interpretation Comments GLUBED (test code = GLUBED) 97 mg/dL 60-125 N - XR FLUORO FOR SPINE [id number] 09:07:00 [facility] 1935 Sex: F PatientName: KD DIGGS Unit No: [id number] EXAMS: CPT CODE: [id number] XR FLUORO FOR SPINE INJ 08670 LUMBAR EPIRADICULAR INJECTION PREOPERATIVE DIAGNOSIS: Lumbar Radiculitis POSTOPERATIVE DIAGNOSIS: Sameas above PROCEDURES PERFORMED: Fluoroscopically guided needle localization of the bilateral L4, L5,S1 spinal nerves with transforaminal epidurograms and epidural injection of local anesthetic and steroid. FINDINGS: Preinjection VAS 8/10. Postinjection VAS 0/10. Steroid response pending follow-up. ESTIMATED BLOOD LOSS: Minimal ANESTHESIA: TIVA COMPLICATIONS: None DETAILS OF PROCEDURE: After obtaining stable vital signs, informed consent and IV access, with no contraindications, the patient was taken to the operating room and placed in a prone position with all extremities padded and appropriate monitors placed. The patient was sterilely prepped and draped over the lumbosacral spine. Using fluoroscopic visualization the insertion sites were marked for paravertebral approaches and using standard technique, a 25 gauge needle was advanced to the base of each pedicle without paresthesias. Isovue-300contrast 0.2 mL of was injected at each level incrementally with frequent negative aspirations to produce each epidurogram. There were no signs of intravascular or intrathecal uptake. Bupivicaine 0.75% 0.25 mL with lidocaine 4% 0.5 mL and Decadron 5 mg was then incrementally injected with frequent negative aspirations at each level and again there were no signs of intravascular or intrathecal uptake.The needles were removed and the patient was taken to the PACU in good condition. Image: Image 1 E lectronically Signed by KIMBERLY FARAH MD on 01/08/2023 at 0907 Reported and signed by: KIMBERLY FARAH MD CC: Suman Harris MD Technologist: RENÉ DUMONT MRI Transcribed D/ (0907) [facility] NAME: KD DIGGS [address] [facility] PHYS: Suman Santos MD [place] [employer] [employer], [place] [address] : 1935 AGE: 87 SEX: F LOC: MAME PHONE #: [phone] EXAM DATE: 01/08/2023 STATUS: [facility] [place] FAX #: [phone] RAD #: D/C DT PAGE 1 Signed Report Patient Name: KD DIGGS Unit No: [id number] EXAMS: CPT CODE: [id number] XR FLUORO FOR SPINE INJ [id number] (Continued) Orig Print D/T: S: 01/08/2023 (0910) [place] [facility] NAME: KD DIGGS[address] [facility] PHYS: Suman Santos MD [place] [employer], [place] [address] : 1935 AGE: 87 SEX: F LOC: MAME PHONE #: [phone] EXAM DATE: 01/08/2023 STATUS: [facility] [place] FAX #: [phone] RAD #: D/C DT PAGE 2 Signed [id number] 08:52:00 Test Item Value Reference Range Interpretation Comments GLUBED (test code = GLUBED) 111 mg/dL 60-125 N
[2023-03-16 18:31] LABS: Absolute Lymphocytes (CBC) 2.4 K/uL (0.7-4.9); Lymphocytes % 26.7 % (15.3-44.8); MCV 90.7 fL (80-100); MPV 7.2 fL (7.6-11.3); Platelets 185 thou/uL (152-406); RBC Red Blood Cell Count 4.08 M/uL (3.86-4.86)
[2023-03-16 18:34] LABS: Protime INR 1.13
[2023-03-16 18:47] LABS: Magnesium 2.2 mg/dL (1.6-2.4); Potassium 4.1 mEq/L (3.5-5.1); Troponin High Sensitivity 14.7 pg/mL (<58.9)
--- NOTE | 2023-03-16 19:10 | RAD REPORT ---
EXAM DESCRIPTION: López Single View03/16/2023 6:58 pm CLINICAL HISTORY: Syncope. Hypertension COMPARISON: 2019 FINDINGS: The lungs appear clear of acute infiltrate. The heart is normal size IMPRESSION: No acute abnormalities displayed
[2023-03-16] MEDS ORDERED: FENTANYL CITR 100 MCG/2 ML ONE (19:44)
--- NOTE | 2023-03-16 20:36 | RAD REPORT ---
EXAM DESCRIPTION: CT - Head C Spine Cap Wo Con - 03/16/2023 8:19 pm CLINICAL HISTORY: Head and neck injury with chest and abdominal pain status post fall TECHNIQUE: Computed axial tomography of head, neck, chest, abdomen and pelvis obtained. IV and oral contrast not requested. Coronal and sagittal reconstruction performed. All CT scans are performed using dose optimization technique as appropriate and may include automated exposure control or mA/KV adjustment according to patient size. COMPARISON: 2020 CT head and C-spine CT chest and abdomen 2018 and 2019 FINDINGS: An intracranial bleed is not seen. The ventricles are normal in caliber. An extra-axial fluid collection is not noted. No significant hypodensity within the brain Fluid within the sinuses/mastoids is not seen. A cervical fracture is not seen. No dislocation is noted. Mild chronic anterior subluxation C2 on C3 and C3 on C4. Spondylosis cervical spine The evaluation of mediastinum, ryan, vessels, solid organs and bowel are limited secondary to the lac k of contrast administration. A mediastinal hematoma is not noted. A pleural effusion is not seen. A lung contusion is not present. The liver,spleen, pancreas, adrenals,kidneys and bladder do not demonstrate an acute traumatic injury Spondylolysis L5 . Small to moderate hiatal hernia IMPRESSION: No acute intracranial abnormality is seen. A cervical fracture is not visualized. If the patient continues to have symptoms to suggest intracran ial/spinal cord pathology MRI be recommended No acute traumatic abnormality involving the chest, abdomen or pelvis
--- NOTE | 2023-03-16 20:45 | EDPHYS ---
Physician Documentation [facility] Name: Yady Diggs Age: 87 yrs Sex: Female : 1935 Arrival Date: 03/16/2023 Time: 17:38 Bed 20 Private MD: ED Physician Ivan Foster HPI: 03/16 18:20 This 87 yrs old Female presents to ER via EMS with complaints of Syncope. cp 18:20 The patient has experienced syncope, lost consciousness. Onset: The symptoms/episode cp began/occurred just prior to arrival. Duration: This was a single episode, that lasted an unknown period of time. Context: occurred at home, occurred while the patient was standing at the stove and cooking dinner. Just prior to the episode the patient experienced weakness of legs. Associated injury: The patient did not suffer any apparent associated injury. Associated signs and symptoms: Pertinent positives: lightheadedness, weakness, Pertinent negatives: abdominal pain, chest pain, diarrhea, headache, vomiting. Current symptoms: weakness of legs. 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 - Social history:: Smoking status: Patient denies any tobacco usage or history of. ROS: 18:25 Constitutional: Negative for body aches, chills, fever, cp 18:25 Eyes: Negative for injury, pain, redness, and discharge, cp 18:25 ENT: Negative for drainage from ear(s), ear pain, sore throat, difficulty swallowing, difficulty handling secretions, 18:25 Cardiovascular: Negative for chest pain, edema, palpitations, 18:25 Respiratory: Negative for cough, shortness of breath, wheezing, 18:25 Abdomen/GI: Negative for abdominal pain, vomiting, diarrhea, constipation, 18:25 Back: Negative for decreased range of motion, pain at rest, 18:25 Skin: Negative for cellulitis, rash, 18:25 Neuro: Positive for syncope, weakness, Negative for altered mental status, headache, 18:25 All other systems are negative, Exam: 18:17 ECG was reviewed by the Attending Physician. cp 18:30 Constitutional: The patient appears in no acute distress, alert, awake, cp non-diaphoretic, non-toxic, well developed, well nourished, 18:30 Head/Face: Normocephalic, atraumatic. cp 18:30 Eyes: Periorbital structures: appear normal, Pupils: equal, round, and reactive to light and accomodation, Extraocular movements: intact throughout, Conjunctiva: normal, no exudate, no injection, Sclera: no appreciated abnormality, Lids and lashes: appear normal, bilaterally, 18:30 ENT: External ear(s): are unremarkable, Nose: is normal, Mouth: Lips: moist, Oral mucosa: pink and intact, moist, Posterior pharynx: is normal, airway is patent, no erythema, no exudate, 18:30 Neck: C-spine: vertebral tenderness, is not appreciated, crepitus, is not appreciated, 18:30 Chest/axilla: Inspection: normal, Palpation: crepitus, is not appreciated, tenderness, is not appreciated, 18:30 Cardiovascular: Rate: bradycardic, Rhythm: regular, Edema: is not appreciated, JVD: is not appreciated, 18:30 Respiratory: the patient does not display signs of respiratory distress, Respirations: normal, no use of accessory muscles, no retractions, labored breathing, is not present, Breath sounds: are clear throughout, no decreased breath sounds, no stridor, no wheezing, 18:30 Abdomen/GI: Inspection: abdomen appears normal, Bowel sounds: active, all quadrants, Palpation: soft, in all quadrants, mild abdominal tenderness, in all quadrants, rebound tenderness, is not appreciated, 18:30 Back: vertebral tenderness, is not appreciated, 18:30 Skin: cellulitis, is not appreciated, no rash present. 18:30 Neuro: Orientation: to person, place \T\ time. Mentation: able to follow commands, slow to respond, Cerebellar function: Romberg testing is negative, Motor: moves all fours, general weakness with no focal deficits, Sensation: is normal, Vital Signs: 17:47 BP 154 / 61; Pulse 52; Resp 16 S; Temp 98.2(O); Pulse Ox 100% on R/A; Weight 59.42 kg kc6 (M); Height 5 ft. 1 in. (R); 18:44 BP 154 / 63; Pulse 55; Resp 15 S; Pulse Ox 99% on R/A; kc6 19:30 BP 134 / 61; Pulse 54; Resp 18 S; Pulse Ox 98% on R/A; ha1 20:30 BP 136 / 56; Pulse 53; Resp 17 S; Pulse Ox 97% on R/A; ha1 21:20 BP 149 / 56 Supine; Pulse 53; Resp 18 S; Pulse Ox 98% on R/A; ha1 21:25 BP 123 / 53 Sitting; Pulse 58; Resp 17 S; Pulse Ox 98% ; ha1 21:30 BP 109 / 52 Standing; Pulse 63; Resp 14 S; Pulse Ox 100% on R/A; ha1 17:47 Body Mass Index 24.75 (59.42 kg, 154.94 cm) kc6 MDM: 17:45 Patient medically screened. 20:45 Data reviewed: vital signs, nurses notes, lab test result(s), EKG, radiologic studies, cp CT scan, plain films. 20:45 Differential Diagnosis: cardiac arrhythmia, GI bleed, seizure, sepsis. Management of cp patient was discussed with the following: Hospitalist: Ned Gaffney, SPD MANAGER will admit after discussion. Independent interpretation of the following test(s) in the Emergency Department EKG: See my EKG interpretation above. Counseling: I had a detailed discussion with the patient and/or guardian regarding the historical points, exam findings, and any diagnostic results supporting the discharge/admit diagnosis, lab results, radiology results, the need for further work-up and treatment in the hospital. 03/16 18:16 Order name: Basic Metabolic Panel; Complete Time: 19:15 cp 03/16 20:39 Interpretation: Normal except: BUN 21; CRE 1.27; GFR 41. cp 03/16 18:16 Order name: CBC with Diff; Complete Time: 19:15 cp 03/16 18:16 Order name: Magnesium; Complete Time: 19:15 cp 03/16 18:16 Order name: PT-INR; Complete Time: 19:15 cp 03/16 18:16 Order name: Troponin HS; Complete Time: 19:15 cp 03/16 18:16 Order name: Urinalysis W/Microscopic cp 03/16 20:51 Order name: DD la1 03/16 18:16 Order name: XRAY Chest (1 view); Complete Time: 19:15 cp 03/16 19:18 Order name: CT Traumagram (Head C Spine CAP wo con); Complete Time: 20:38 cp 03/16 18:16 Order name: EKG; Complete Time: 18:16 cp 03/16 18:16 Order name: Cardiac monitoring; Complete Time: 18:16 cp 03/16 18:16 Order name: EKG - Nurse/Tech; Complete Time: 18:16 cp 03/16 18:16 Order name: IV Saline Lock; Complete Time: 18:17 cp 03/16 18:16 Order name: Labs collected and sent; Complete Time: 18:17 cp 03/16 18:16 Order name: O2 Per Protocol; Complete Time: 18:17 cp 03/16 18:16 Order name: O2 Sat Monitoring; Complete Time: 18:17 cp 03/16 20:52 Order name: Orthostatics; Complete Time: 21:39 la1 EC:17 Rate is 52 beats/min. Rhythm is regular. GA interval is normal. QRS interval is cp prolonged at 106 msec. QT interval is normal. T waves are Inverted in leads III, aVF, aVR. Interpreted by me. Reviewed by me. Administered Medications: 19:43 Drug: fentaNYL (PF) IVP 25 mcg IVP once Route: IVP; Site: left antecubital; ha1 20:00 Follow up: Response: No adverse reaction; Pain is decreased; RASS: Alert and Calm (0) ha1 Point of Care Testing: Blood Glucose: 17:49 Blood Glucose: 132 mg/dL; kc6 Ranges: Critical Glucose Levels:Adult <50 mg/dl or >400 mg/dl <40 mg/dl or >180 mg/dl Disposition Summary: 03/16/23 20:44 Hospitalization Ordered Notes: Hospitalization Status: Observation cp Provider: Ned Gaffney cp Location: Telemetry/MedSurg (observation) cp Condition: Stable cp Problem: new cp Symptoms: have improved cp Bed/Room Type: Standard cp Room Assignment: 431(03/16/23 21:29) cg Diagnosis - Syncope cp Forms: - Medication Reconciliation Form cp - SBAR form cp - Leadership Thank You Letter cp Signatures: Dispatcher [employer] EDMS Ned Gaffney FNP-Deuce CLEAN OUT DRILLER-Cla1 Gio Siddiqui PA PA cp Garcia, Cindy, RN RN cg Millicent Clinton RN RN ha1 Hemalatha Jenkins RN RN kc6 Corrections: (The following items were deleted from the chart) 21:29 20:44 cp cg
--- NOTE | 2023-03-16 20:45 | ER ---
Nurse's Notes [facility] Name: Yady Diggs Age: 87 yrs Sex: Female : 1935 Arrival Date: 03/16/2023 Time: 17:38 Bed 20 Private MD: Diagnosis: Syncope Presentation: 03/16 17:47 Chief complaint: EMS states: pt was making dinner for her when she fell from a kc6 standing position with her walker in place. LOC, denies hitting her head, not on blood thinners. BGL en route 132. 4mg of IV zofran given en route. Coronavirus screen: At this time, the client does not indicate any symptoms associated with coronavirus-19. Ebola Screen: No symptoms or risks identified at this time. Initial Sepsis Screen: Does the patient meet any 2 criteria? No. Patient's initial sepsis screen is negative. Does the patient have a suspected source of infection? No. Patient's initial sepsis screen is negative. Risk Assessment: Do you want to hurt yourself or someone else? Patient reports no desire to harm self or others. Onset of symptoms was March 16, 2023. 17:47 Method Of Arrival: EMS: [facility] kc6 17:47 Acuity: NILAY 3 kc6 Triage Assessment: 17:49 General: Appears in no apparent distress. comfortable, Behavior is calm, cooperative, kc6 appropriate for age. Pain: Complains of pain in right and left hips. EENT: No signs and/or symptoms were reported regarding the EENT system. Neuro: Level of Consciousness is awake, alert, obeys commands, Oriented to person, place, time, situation, Appropriate for age. Cardiovascular: Heart tones S1 S2 present Capillary refill < 3 seconds. Respiratory: Airway is patent Trachea midline Respiratory effort is even, unlabored, Respiratory pattern is regular, symmetrical. GI: Reports nausea, Patient currently denies abdominal pain, diarrhea, vomiting. : No signs and/or symptoms were reported regarding the genitourinary system. Derm: No signs and/or symptoms reported regarding the dermatologic system. Skin is intact, is healthy with good turgor, Skin is dry, Skin is pale, Skin temperature is warm. Musculoskeletal: No signs and/or symptoms reported regarding the musculoskeletal system. Circulation, motion, and sensation intact. Capillary refill < 3 seconds, Range of motion: intact in all extremities. 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 - Social history:: Smoking status: Patient denies any tobacco usage or history of. Screenin:51 [facility] ED Fall Risk Assessment (Adult) History of falling in the last 3 months, kc6 including since admission Yes- physiologic fall (2 pts) Confusion or Disorientation No (0 pts) Intoxicated or Sedated No (0 pts) Impaired Gait No (0 pts) Mobility Assist Device Used Yes (1 pt) Altered Elimination No (0 pt) Score/Fall Risk Level 3 or more points = High Risk. Abuse screen: Denies threats or abuse. Denies injuries from another. Nutritional screening: No deficits noted. Tuberculosis screening: No symptoms or risk factors identified. Assessment: 17:51 Reassessment: please see triage assessment. kc 18:44 Reassessment: Patient appears in no apparent distress at this time. No changes from [facility] previously documented assessment. Patient and/or family updated on plan of care and expected duration. Pain level reassessed. Patient is alert, oriented x 3, equal unlabored respirations, skin warm/dry/pink. 19:25 Cardiovascular: Rhythm is sinus bradycardia. ha1 19:35 General: Appears comfortable, Behavior is calm, cooperative. Pain: Complains of pain in ha1 generalized Pain does not radiate. Pain currently is 7 out of 10 on a pain scale. Neuro: Level of Consciousness is awake, alert, obeys commands, Oriented to person, place, time, situation. Neuro: Reports a syncopal episode. Cardiovascular: Capillary refill < 3 seconds Patient's skin is warm and dry. Respiratory: Airway is patent Respiratory effort is even, unlabored, Respiratory pattern is regular, symmetrical. GI: Abdomen is flat, non-distended, Bowel sounds present X 4 quads. Derm: Skin is pink, warm \T\ dry. Musculoskeletal: Circulation, motion, and sensation intact. Range of motion: intact in all extremities. 20:35 Reassessment: Patient and/or family updated on plan of care and expected duration. Pain ha1 level reassessed. Patient is alert, oriented x 3, equal unlabored respirations, skin warm/dry/pink. 21:43 Reassessment: Patient and/or family updated on plan of care and expected duration. Pain ha1 level reassessed. Patient is alert, oriented x 3, equal unlabored respirations, skin warm/dry/pink. report given to JAM Reid. 21:53 Reassessment: notified Ned of orthostatic Vital signs. ha1 Vital Signs: 17:47 BP 154 / 61; Pulse 52; Resp 16 S; Temp 98.2(O); Pulse Ox 100% on R/A; Weight 59.42 kg kc6 (M); Height 5 ft. 1 in. (R); 18:44 BP 154 / 63; Pulse 55; Resp 15 S; Pulse Ox 99% on R/A; kc6 19:30 BP 134 / 61; Pulse 54; Resp 18 S; Pulse Ox 98% on R/A; ha1 20:30 BP 136 / 56; Pulse 53; Resp 17 S; Pulse Ox 97% on R/A; ha1 21:20 BP 149 / 56 Supine; Pulse 53; Resp 18 S; Pulse Ox 98% on R/A; ha1 21:25 BP 123 / 53 Sitting; Pulse 58; Resp 17 S; Pulse Ox 98% ; ha1 21:30 BP 109 / 52 Standing; Pulse 63; Resp 14 S; Pulse Ox 100% on R/A; ha1 17:47 Body Mass Index 24.75 (59.42 kg, 154.94 cm) [facility] ED Course: 17:43 Patient arrived in ED. eb 17:45 Gio Siddiqui PA is PHCP. cp 17:45 Ivan Foster MD is Attending Physician. cp 17:49 Triage completed. [facility] 17:49 Arm band placed on. [facility] 17:51 Patient has correct armband on for positive identification. Bed in low position. Call [facility] light in reach. Side rails up X2. Client placed on continuous cardiac and pulse oximetry monitoring. NIBP monitoring applied. 17:51 Maintain EMS IV. Dressing intact. Good blood return noted. Site clean \T\ dry. Gauge \T\ paddy 6 site: 20G LAC. 17:53 Hemalatha Jenkins, RN is Primary Nurse. kc6 19:00 XRAY Chest (1 view) In Process Unspecified. EDMS 20:21 CT Traumagram (Head C Spine CAP wo con) In Process Unspecified. EDMS 20:43 Ned Gaffney FNP-C is Hospitalizing Provider. cp 21:50 No provider procedures requiring assistance completed. Patient admitted, IV remains in ha1 place. 21:53 Provided Education on: need for admit . ha1 Administered Medications: 19:43 Drug: fentaNYL (PF) IVP 25 mcg IVP once Route: IVP; Site: left antecubital; ha1 20:00 Follow up: Response: No adverse reaction; Pain is decreased; RASS: Alert and Calm (0) ha1 Medication: 21:53 VIS not applicable for this client. ha1 Point of Care Testing: Blood Glucose: 17:49 Blood Glucose: 132 mg/dL; kc6 Ranges: Outcome: 20:44 Decision to Hospitalize by Provider. cp 21:51 Admitted to Med/surg accompanied by nurse, via wheelchair, room 431, with chart, Report ha1 called to JAM Michaud 21:51 Condition: stable 21:51 Discharge instructions given to patient, Instructed on the need for admit, Demonstrated understanding of instructions, 21:54 Patient left the ED. ha1 Signatures: Dispatcher [employer] EDIA Gio Siddiqui PA PA cp Botello, Elizabeth eb Ayala, Heidy RN RN ha1 Hemalatha Jenkins, RN RN kc6
--- NOTE | 2023-03-16 21:21 | P.HP ---
Certification for Inpatient Patient admitted to: Observation With expected LOS: <2 Midnights Patient will require the following post-hospital care: None Practitioner: I am a practitioner with admitting privileges, knowledge of patient current condition, hospital course, and medical plan of care. Services: Services provided to patient in accordance with Admission requirements found in Title 42 Section 412.3 of the Code of Federal Regulations Patient History Date of Service: 03/16/23 Reason for admission: Syncope History of Present Illness: 87-year-old female with history of hypertension, hypothyroidism, GERD presents emergency department chief complaint of syncope. She reports that she was standing in the kitchen when she began to feel lightheaded, she started to walk towards the bedroom and called her when she passed out, woke up on the floor. She denies any chest pain, palpitations or headache prior to syncopal episode, she reports that she had approximately 20 these episodes over the course of the last couple of years. She was evaluated in the emergency department initial high sensory troponin is 14.7 CBC unremarkable D-dimer ordered now and pending EKG with sinus bradycardia no STEMI criteria chest x-ray unremarkable CT head/C-spine/chest/abdomen/pelvis shows no acute findings. ED provider wishes to admit under observation for syncope. Orthostatic vitals also ordered and pending. Allergies adhesive tape Allergy (Verified 05/16/22 11:24) blisters morphine Adverse Reaction (Mild, Verified 05/16/22 11:24) Headache/Nausea/Vomiting Home Medications: Atorvastatin Calcium 20 mg PO BEDTIME 01/31/16 Carvedilol 12.5 mg PO BID 01/31/16 Cranberry 1 cap PO DAILY 01/31/16 Fluticasone/Salmeterol [Advair 250/50 Diskus*] 1 puff PO BID 01/31/16 Gabapentin 600 mg PO TID 01/31/16 Latanoprost 1 drop EACH EYE BEDTIME 01/31/16 Levothyroxine Sodium 25 mcg PO DAILY 01/31/16 Magnesium Oxide [Magnesium] 500 mg PO DAILY 01/31/16 Multivit-Min/Iron/Folic/Lutein [Centrum Silver Women Tablet] 1 tab PO DAILY 01/31/16 [place]-3/Dha/Epa/Fish Oil [Fish Oil [place]-3 EC 1,200 mg] 1 each PO BID 01/31/16 Cetirizine HCl [Zyrtec*] 10 mg PO DAILY 11/09/16 Dorzolamide HCl/Pf [Dorzolamide 2% Eye Drop] 1 gtt LEFT EYE BID 10/03/18 Calcium Glycerophosphate [Prelief] 65 mg PO AC 07/11/21 Fluticasone [Flonase 50mcg Nasal [place]] 2 sprays NS DAILY 07/11/21 L.acidoph,Paracasei, B.lactis [Probiotic] 1 each PO DAILY 07/11/21 Pantoprazole [Protonix Tab] 40 mg PO DAILY 07/11/21 Lisinopril [Zestril] 1 tab PO BID 05/16/22 - Past Medical/Surgical History Diabetic: No -: HTN -: Hyperlipidemia -: Hypothyroidism -: Glaucoma/Macular degeneration -: Asthma -: Hernia repair -: r knee replacement, left hip replacement -: tonsillectomy -: abd scar tissue removal -: bilateral cataract -: hysterectomy -: Appendectomy, cholecystecomy -: bladder & rectal suspension, sm bowel resection Psychosocial/ Personal History: lives at home with family - Family History Mother -: Heart disease, Hypertension Father -: Other (see notes) Notes: blind - Social History Smoking Status: Never smoker Alcohol use: Yes CD- Drugs: No Caffeine use: Yes Place of Residence: Home Review of Systems 10-point ROS is otherwise unremarkable General: As per HPI Cardiovascular: Light Headedness, As per HPI Physical Examination - Physical Exam General: Alert, In no apparent distress, Oriented x3 HEENT: Atraumatic, PERRLA, Mucous membr. moist/pink, EOMI, Sclerae nonicteric Neck: Supple, 2+ carotid pulse no bruit, No LAD, Without JVD or thyroid abnormality Respiratory: Clear to auscultation bilaterally, Normal air movement Cardiovascular: Regular rate/rhythm, Normal S1 S2 Gastrointestinal: Normal bowel sounds, No tenderness Musculoskeletal: No tenderness Integumentary: No rashes Neurological: Normal gait, Normal speech, Normal strength at 5/5 x4 extr, Normal tone, Normal affect Lymphatics: No axilla or inguinal lymphadenopathy - Studies Laboratory Data (last 24 hrs) 03/16/23 03/16/23 03/16/23 18:21 18:21 18:21 WBC 9.00 Hgb 12.7 Hct 37.0 Plt Count 185 PT 12.4 INR 1.13 Sodium 141 Potassium 4.1 BUN 21 H Creatinine 1.27 H Glucose 101 Magnesium 2.2 Assessment and Plan - Plan Assessment: Syncope Hypertension Hyperlipidemia Hypothyroidism Plan: Syncope Initial high-sensitivity opponent negative, will trend troponins, monitor on telemetry. Obtain orthostatic vital signs, D-dimer ordered and pending patient is allergic to iodine may require VQ scan if positive. Reports up to 20 episodes of syncope over the course of last couple years with unknown etiology. This episode did not seem to be related to change in position occurred while standing. Carotid Doppler ordered as well. Sinus bradycardia on EKG, will hold carvedilol for now. Hypertension Hyperlipidemia Hypothyroidism Continue home medications. DVT PPX: Lovenox Code status: Full Discharge Plan: Home Plan to discharge in: 24 Hours - Advance Directives Does patient have a Living Will: No Does patient have a Durable POA for Healthcare: No - Code Status/Comfort Care Code Status Assessed: Yes (Full code) Critical Care: No Time Spent Managing Pts Care (In Minutes): 55
[2023-03-16 21:55] VITALS: BMI 24.7
[2023-03-16] MEDS ORDERED: ONDANSETRON 4 MG/2 ML VIAL IV PRN (22:07)
[2023-03-16] MEDS: NA CHLORIDE 0.9% 1,000 ML IV SCH (22:22)
[2023-03-16] MEDS: HYDROCODONE/APAP 5/325 MG TAB PO PRN (22:31)
[2023-03-16] MEDS: TRAZODONE 50 MG TABLET PO PRN (22:31)
[2023-03-16 22:53] LABS: Specific Gravity > 1.030 (1.005-1.030); Urine Bacteria None Seen /HPF (<20); Urine Bilirubin NEGATIVE (Negative); Urine Blood Negative (Negative); Urine Clarity Extremely Turbid (Clear); Urine Color Yellow (Yellow); Urine Glucose NEGATIVE (Negative); Urine Mucus Slight /HPF (None Seen); Urine Protein 1+ (Negative); Urine RBC <5 /HPF (None Seen); Urine Urobilinogen Normal (Normal); Urine pH 5.5 (5.0-7.0)
[2023-03-16] MEDS ORDERED: ENOXAPARIN 60 MG/0.6 ML SQ SCH (23:00)
[2023-03-17] MEDS: LEVOTHYROXINE SOD 0.025 MG TAB PO SCH (05:46)
[2023-03-17 06:38] LABS: Absolute Lymphocytes (CBC) 2.4 K/uL (0.7-4.9); Hematocrit 33.9 % (36.0-45.0); Lymphocytes % 29.5 % (15.3-44.8); MCV 91.2 fL (80-100); MPV 7.4 fL (7.6-11.3); Platelets 157 thou/uL (152-406); RBC Red Blood Cell Count 3.72 M/uL (3.86-4.86)
[2023-03-17 07:00] LABS: Potassium 4.1 mEq/L (3.5-5.1); Thyroid Stimulating Hormone 1.52 uIU/mL (0.358-3.740)
[2023-03-17] MEDS: ASPIRIN EC 81 MG TAB PO SCH (08:10)
[2023-03-17] MEDS: GABAPENTIN 300 MG CAP PO SCH ×3 (08:12→19:14)
[2023-03-17] MEDS: ENOXAPARIN 30 MG/0.3 ML SQ SCH (08:12)
--- NOTE | 2023-03-17 08:20 | RAD REPORT ---
EXAM DESCRIPTION: NM - Vent Perfusion VQ Scan - 03/17/2023 7:28 am CLINICAL HISTORY: Shortness of breath. Syncope COMPARISON: Chest x-ray March 16, 2023 TECHNIQUE: 21.8 Mci [id number] was administered by inhalation. First breath, equilibrium, and washout images of the lungs obtained 7 millicuries Technetium-99 MAA was administered intravenously. Anterior, posterior, lateral and obli que views of the lungs were taken. FINDINGS: The lungs demonstrate relatively homogeneous radiotracer activity on ventilation and perfu ankur sequences. No mismatched segmental or lobar perfusion defects are seen. IMPRESSION: No evidence of a pulmonary embolus
[2023-03-17] MEDS: HYDROCODONE/APAP 5/325 MG TAB PO PRN ×3 (08:23→22:39)
[2023-03-17] MEDS ORDERED: ENOXAPARIN 40 MG/0.4 ML SQ SCH (09:00)
[2023-03-17] MEDS: NA CHLORIDE 0.9% 1,000 ML IV SCH (13:02)
--- NOTE | 2023-03-17 14:31 | P.PN ---
Subjective Date of Service: 03/17/23 Chief Complaint: Syncope No acute events since admission. She reports having about 20 episodes of syncope, without obvious cause. She states that, prior to the syncopal episode, she began to feel lightheaded/dizzy. She is unsure how long she lost consciousness. To her knowledge, she does not have any cardiac disease. This morning, she reports no symptoms. Review of Systems 10-point ROS is otherwise unremarkable Physical Examination - Vital Signs Temperature: 97.7 F Blood Pressure: 167/60 Pulse: 54 Respirations: 16 Pulse Ox (%): 97 - Physical Exam General: Alert, In no apparent distress, Oriented x3 HEENT: Atraumatic, Mucous membr. moist/pink, Sclerae nonicteric Neck: JVD not distended Respiratory: Clear to auscultation bilaterally, Normal air movement Cardiovascular: No edema, Regular rate/rhythm, Normal S1 S2, No gallops, No rubs, No murmurs Gastrointestinal: Normal bowel sounds, Soft and benign, Non-distended Musculoskeletal: No clubbing Integumentary: No rashes Neurological: Normal speech, Normal affect - Studies Laboratory Data (last 24 hrs) 03/16/23 03/16/23 03/16/23 18:21 18:21 18:21 WBC 9.00 Hgb 12.7 Hct 37.0 Plt Count 185 PT 12.4 INR 1.13 Sodium 141 Potassium 4.1 BUN 21 H Creatinine 1.27 H Glucose 101 Magnesium 2.2 Assessment And Plan - Plan # Syncope Differential diagnoses include, but are not limited to, vasovagal syncope, orthostatic hypotension, cardiac etiology (i.e. arrhythmia, valvulopathy), and neurogenic etiologies. - Evaluation thus far: - Chest x-ray = "no acute abnormalities displayed" - CT head/cervical spine/chest/abdomen/pelvis = "no acute intracranial abnormality is seen. A cervical fracture is not visualized. If the patient continues to have symptoms to suggest intracranial/spinal cord pathology MRI be recommended. No acute traumatic abnormality involving the chest, abdomen or pelvis" - Serial troponin: 14.7 -> 14.1 -> 13.0 - D-Dimer = 4731 - V/Q scan = "no evidence of a pulmonary embolus" - Bilateral lower extremity Doppler = "no evidence of deep venous thrombosis in either lower extremity." - Management plan: - Consulted Cardiology - recommendations appreciated - Requested orthostatic vital signs - Transthoracic echocardiogram and carotid ultrasound pending # Hypothyroidism - Continue home levothyroxine # Hyperlipidemia - Continue home atorvastatin # Hypertension - Reconcile home medications once verified Jose Zelaya M.D.
--- NOTE | 2023-03-17 16:14 | CON ---
Date of Consultation: 03/17/2023 Reason For Consultation: Syncope. History Of Present Illness: 87-year-old female, history of hypertension, hypothyroidism, acid reflux , presented after passing out, who reported that she was standing in the kitchen, preparing meals, fe lt lightheaded, started walking to the bedroom and she did not make it, fell on the floor and denies having any chest pain or palpitations. No other complaints and denies having any other symptoms exce pt feeling lightheaded when she was standing. Past Medical History: As outlined above in the HPI. Medications: Refer to reconciliation sheet for detailed list. Allergies: MORPHINE. Family History: No premature coronary artery disease or cancer. Social History: She does not smoke or drink. Does not use any drugs. Review of Systems: All systems reviewed and they were negative except what mentioned in HPI. Physical Examination: Vital Signs: Reviewed. Head and Neck: Pupils are equal, reactive to light. Intact eye movements. No JVD. No cervical lym phadenopathy. Neck is supple. Thyroid is not enlarged. Lungs: Clear to auscultation bilaterally. No rhonchi, wheezing, or crackles. No accessory muscle u se. Heart: Regular rate and rhythm. No extra sounds. Abdomen: Soft, nontender. Bowel sounds positive. No organomegaly. No masses or hernia. No rigidi ty or rebound. Extremities: No clubbing, cyanosis. Intact pulses. Skin: No rashes. Neurologic: Alert, awake, oriented x3. No acute focal deficits appreciated. Investigations: BUN 21, creatinine 0.96, down from 1.27 and hemoglobin is 11.9. V/Q scan, no PE. Assessment And Recommendations: 1.Syncope from standing position, likely hypotension related. She was slightly dehydrated on admiss ion. Recommended gentle hydration and keep monitoring on telemetry and obtain an echocardiogram on M onday. Her cardiac enzymes have been negative. 2.Hypertension. Blood pressure is good now. Maybe she was getting too much blood pressure medicati ons plus dehydration on top as she has urinary tract infection. See below. 3.Urinary tract infection. Recommend to start IV antibiotics, pending cultures, Rocephin 1 g q.24 h ours. SR/MODL Voice ID: [id number] Report ID: [id number]
--- NOTE | 2023-03-17 16:43 | RAD REPORT ---
EXAM DESCRIPTION: USCarotid Artery Kwidkuwae59/14/2023 3:42 pm CLINICAL HISTORY: syncope COMPARISON: None FINDINGS: The velocity of the right internal carotid artery equals 123 cm/sec. The right ICA/CCA rat io 1.9 The velocity of the left internal carotid artery equals 77 cm/sec. The left ICA/CCA ratio 1.4 Mild plaque is present within the carotid arteries. The vertebral arteries demonstrate antegrade flow IMPRESSION: Mild plaque within the carotid arteries NASCET criteria used. Mild 0-49% stenosis Moderate 50-69% stenosis Severe 70-99% stenosis
[2023-03-17] MEDS: CEFTRIAXONE 1,000 MG in NA CHLORIDE 0.9% 50 ML IVPB SCH (18:15)
[2023-03-17] MEDS: TRAZODONE 50 MG TABLET PO PRN (19:15)
[2023-03-17] MEDS ORDERED: ATORVASTATIN 20 MG TAB PO SCH (21:00)
--- NOTE | 2023-03-17 21:38 | RAD REPORT ---
EXAM DESCRIPTION: US - Extrem Venous W Compress Pedro Pablo - 03/17/2023 12:50 am CLINICAL HISTORY: 87 years Female r/o dvt, elevated dd TECHNIQUE: Bilateral lower extremity color duplex evaluation of the deep venous system performed on 03/17/2023 at 12: 12 AM. COMPARISON: No prior studies were available for comparison. FINDINGS: Grayscale and color Doppler images of the deep veins of the right lower extremity was perf ormed. The grayscale images reveal normal compressibility of the deep veins. The Doppler images revea l normal flow, phasicity with respiration and normal augmentation with compression. The color flow im ages reveal normal saturation of flow within the deep veins of the right lower extremity. No intralum inal echoes are identified to suggest nonocclusive thrombus. Grayscale and color Doppler images of the deep veins of the left lower extremity was performed. The g rayscale images reveal normal compressibility of the deep veins. The Doppler images reveal normal lester w, phasicity with respiration and normal augmentation with compression. The color flow images reveal normal saturation of flow within the deep veins of the left lower extremity. No intraluminal echoes a re identified to suggest nonocclusive thrombus. The superficial veins are patent. No additional abnormalities are identified. IMPRESSION: No evidence of deep venous thrombosis in either lower extremity. Electronically signed by: Felisha Rodrigues DO 03/17/2023 1:37 AM CDT Due to temporary technical issues with the PACS/Fluency reporting system, reports are being signed by the in house radiologists without review as a courtesy to insure prompt reporting. The interpreting radiologist is fully responsible for the content of the report.
[2023-03-17] MEDS ORDERED: ENOXAPARIN 100 MG/ML SYR SQ SCH (22:30)
[2023-03-18] MEDS: NA CHLORIDE 0.9% 1,000 ML IV SCH ×2 (00:41→16:54)
[2023-03-18 04:52] LABS: Potassium 4.2 mEq/L (3.5-5.1)
[2023-03-18] MEDS: HYDROCODONE/APAP 5/325 MG TAB PO PRN ×3 (06:06→21:32)
[2023-03-18] MEDS: LEVOTHYROXINE SOD 0.025 MG TAB PO SCH (06:06)
[2023-03-18] MEDS ORDERED: SALMETEROL PO PRN (07:19)
[2023-03-18] MEDS ORDERED: DISK DISK PO PRN (07:19)
[2023-03-18] MEDS ORDERED: FLUTICASONE PO PRN (07:19)
[2023-03-18] MEDS ORDERED: cloNIDine HCL 0.1 MG TAB PO ONE (07:21)
[2023-03-18] MEDS ORDERED: HOME MED 1 EA UNK (Gabapentin [Gabapentin] 600 MG Tablet) PO SCH (09:00)
[2023-03-18] MEDS ORDERED: CRANBERRY FRUIT EXTRACT 200 MG CAP PO SCH (09:00)
[2023-03-18] MEDS ORDERED: HYDRALAZINE HCL 10 MG TABLET PO SCH (09:00)
[2023-03-18] MEDS ORDERED: carvediloL 12.5 MG TAB PO SCH (09:00)
[2023-03-18] MEDS ORDERED: LEVOTHYROXINE SOD 0.05 MG TABLET PO SCH (09:00)
[2023-03-18] MEDS: COCONUT OIL 1000 MG PO SCH (09:00)
[2023-03-18] MEDS: LACTOBACILLUS/ACIDOPHILUS TAB PO SCH (09:00)
[2023-03-18] MEDS: HOME MED 1 EA UNK (Dorzolamide Hcl/Pf [Dorzolamide 2% Eye Drop] 10 ML Drops) OPTH SCH ×2 (09:00→19:52)
[2023-03-18] MEDS: ASPIRIN EC 81 MG TAB PO SCH (09:19)
[2023-03-18] MEDS: CEFTRIAXONE 1,000 MG in NA CHLORIDE 0.9% 50 ML IVPB SCH (09:19)
[2023-03-18] MEDS: GABAPENTIN 300 MG CAP PO SCH ×3 (09:20→19:55)
[2023-03-18] MEDS: CETIRIZINE HCL 5 MG TABLET PO SCH (09:24)
[2023-03-18] MEDS: DOCUSATE NA 100 MG CAP PO SCH (09:24)
[2023-03-18] MEDS: ENOXAPARIN 30 MG/0.3 ML SQ SCH (09:24)
--- NOTE | 2023-03-18 17:33 | P.PN ---
Subjective Date of Service: 03/18/23 Chief Complaint: Syncope No new events. She has had no recurrent episodes of syncope. Per discussion with Dr. Oconnor, he is concerned that her home carvedilol and hydralazine may be too potent given her age. He recommends switching to low-dose lisinopril and monitoring her blood pressure. Review of Systems 10-point ROS is otherwise unremarkable General: Weakness (generalized) Physical Examination - Vital Signs Temperature: 98.2 F Blood Pressure: 158/61 Pulse: 52 Respirations: 16 Pulse Ox (%): 97 - Physical Exam General: Alert, In no apparent distress, Oriented x3 HEENT: Atraumatic, Mucous membr. moist/pink, Sclerae nonicteric Neck: JVD not distended Respiratory: Clear to auscultation bilaterally, Normal air movement Cardiovascular: No edema, Regular rate/rhythm, Normal S1 S2, No gallops, No rubs, No murmurs Gastrointestinal: Normal bowel sounds, Soft and benign, Non-distended, No tenderness, No rebound, No guarding Musculoskeletal: No clubbing Integumentary: No rashes Neurological: Normal speech, Normal strength at 5/5 x4 extr, Sensation intact, Cranial nerves 3-12 intact, Normal affect Assessment And Plan - Plan # Syncope # Hypertensive Urgency Differential diagnoses include, but are not limited to, vasovagal syncope, orthostatic hypotension, cardiac etiology (i.e. arrhythmia, valvulopathy), and neurogenic etiologies. - Evaluation thus far: - Chest x-ray = "no acute abnormalities displayed" - CT head/cervical spine/chest/abdomen/pelvis = "no acute intracranial abnormality is seen. A cervical fracture is not visualized. If the patient continues to have symptoms to suggest intracranial/spinal cord pathology MRI be recommended. No acute traumatic abnormality involving the chest, abdomen or pelvis" - Carotid ultrasound = "mild plaque within the carotid arteries" - Serial troponin: 14.7 -> 14.1 -> 13.0 - D-Dimer = 4731 - V/Q scan = "no evidence of a pulmonary embolus" - Bilateral lower extremity Doppler = "no evidence of deep venous thrombosis in either lower extremity." - Management plan: - Consulted Cardiology and spoke with Dr. Oconnor - He recommended discontinuing carvedilol and hydralazine - Recommended starting lisinopril and titrating up as tolerated - Requested orthostatic vital signs - Transthoracic echocardiogram pending # Possible Urinary Tract Infection - Does not meet sepsis criteria - Continue ceftriaxone # Hypothyroidism - Continue home levothyroxine # Hyperlipidemia - Continue home atorvastatin Jose Zelaya M.D.
[2023-03-18] MEDS ORDERED: lisinopriL 5 MG TAB PO SCH (18:00)
[2023-03-18] MEDS ORDERED: LATANOPROST 0.005% 2.5ML OPTH OPTH SCH (21:00)
[2023-03-18] MEDS ORDERED: AMITRIPTYLINE 10 MG TAB PO SCH (21:00)
[2023-03-18] MEDS ORDERED: PRIMIDONE 50 MG TAB PO SCH (21:00)
[2023-03-18] MEDS ORDERED: ATORVASTATIN 20 MG TAB PO SCH (21:00)
[2023-03-18] MEDS ORDERED: TRAZODONE 50 MG TABLET PO SCH (21:00)
[2023-03-18] MEDS: TRAZODONE 50 MG TABLET PO PRN (21:32)
[2023-03-19] MEDS: HYDROCODONE/APAP 5/325 MG TAB PO PRN ×2 (05:05→13:06)
[2023-03-19] MEDS: LEVOTHYROXINE SOD 0.025 MG TAB PO SCH (05:05)
[2023-03-19] MEDS: NA CHLORIDE 0.9% 1,000 ML IV SCH (05:06)
--- NOTE | 2023-03-19 05:16 | P.PN ---
Date of Service: 03/19/23 Subjective: Physical Exam: Vitals: reviewed GEN: Alert, oriented, NAD HEENT: Normal conjunctiva, sclera anicteric CV: Regular rate & rhythm, no edema Pulm: Nonlabored respiraitons, clear bilaterally ABD: Soft, nontender, nondistended MSK: No joint tenderness Integumentary: No rashes Neuro: Normal speech, normal affect Problem List: PLAN
[2023-03-19 07:17] LABS: Potassium 4.6 mEq/L (3.5-5.1)
[2023-03-19 07:50] VITALS: O2SAT 97
[2023-03-19] MEDS: CEFTRIAXONE 1,000 MG in NA CHLORIDE 0.9% 50 ML IVPB SCH (07:58)
[2023-03-19] MEDS: ASPIRIN EC 81 MG TAB PO SCH (07:58)
[2023-03-19] MEDS: GABAPENTIN 300 MG CAP PO SCH ×2 (07:58→13:07)
[2023-03-19] MEDS: ENOXAPARIN 30 MG/0.3 ML SQ SCH (07:59)
[2023-03-19] MEDS: DOCUSATE NA 100 MG CAP PO SCH (07:59)
[2023-03-19] MEDS: CETIRIZINE HCL 5 MG TABLET PO SCH (07:59)
[2023-03-19] MEDS: LACTOBACILLUS/ACIDOPHILUS TAB PO SCH (07:59)
[2023-03-19] MEDS: COCONUT OIL 1000 MG PO SCH (08:00)
[2023-03-19] MEDS: HOME MED 1 EA UNK (Dorzolamide Hcl/Pf [Dorzolamide 2% Eye Drop] 10 ML Drops) OPTH SCH (08:00)
[2023-03-19 08:14] VITALS: TEMP 97.9
[2023-03-19] MEDS ORDERED: lisinopriL 5 MG TAB PO SCH (09:00)
[2023-03-19] MEDS ORDERED: NIFEDIPINE XL 30 MG TABLET PO ONE (13:00)
[2023-03-19 15:53] VITALS: BP 111/55
--- NOTE | 2023-03-19 17:10 | EKG ---
Test Date: 2023-03-16 Test Time: 18:10:21 Metallurgist Process: NEHA MEASUREMENT RESULTS: Intervals: Rate: 52 WA: 160 QRSD: 106 QT: 498 QTc: 463 [place]: P: -11 WA: 160 QRS: -12 T: -31 INTERPRETIVE STATEMENTS: Sinus bradycardia Otherwise normal ECG Compared to ECG 05/16/2022 11:45:26 Incomplete right bundle-branch block no longer present Electronically Signed On 03-19-23 17:05:44 CDT by Anton Oconnor
--- NOTE | 2023-03-19 19:43 | PN ---
Date of Progress Note: 03/19/2023 Subjective: Seen by bedside. No new complaints. Review of Systems: No chest pain, shortness of breath, orthopnea, or cough. No nausea, vomiting, or diarrhea. All othe r systems reviewed, they were negative. Objective: Vital Signs: Reviewed. Head and Neck: Pupils are equal, reactive to light. Intact eye movements. No JVD. No cervical lym phadenopathy. Neck is supple. Thyroid is not enlarged. Lungs: Clear to auscultation bilaterally. No rhonchi, wheezing, or crackles. No accessory muscle u se. Heart: Regular rate and rhythm. No extra sounds. Abdomen: Soft, nontender. Bowel sounds positive. No organomegaly. No masses or hernia. No rigidi ty or rebound. Extremities: No edema, clubbing or cyanosis. Intact pulses. Skin: No rash or nodules. Neurologic: Alert, awake, oriented x3. No acute focal deficits appreciated. Investigations: BUN 14, creatinine 0.89, hemoglobin is 11.9, and cardiac enzymes are negative. Assessment And Recommendations: 1.Syncope, likely due to hypotension due to dehydration as the patient had urinary tract infection. Symptoms have resolved. No arrhythmia noted. No further cardiac workup is needed. 2.Hypertension. Blood pressure is acceptable. Continue current management. 3.Urinary tract infection, on antibiotics. Cardiology will sign off. SR/MODL Voice ID: [id number] Report ID: [id number]
[2023-03-19] MEDS ORDERED: ONDANSETRON 4 MG/2 ML VIAL IV PRN (20:18)
--- NOTE | 2023-03-19 20:28 | DS ---
Date of Discharge: 03/19/2023 Disposition: Discharged to go home. Physical Examination: HEENT: Unremarkable. Lungs: Clear to auscultation. Heart: Sounds normal. Abdomen: Soft, bowel sounds normal. No guarding, rigidity, tenderness, distention. Extremities: No leg edema. Laboratory Data: Upon admission on 03/16/2023, white count 9, hemoglobin 12.7, platelets 185. Day a fter admission white count 8.1, hemoglobin 11.9, platelets 157. Chemistry upon admission; sodium 141 , potassium 4.1, chloride 105, bicarb 31, BUN 21, creatinine 1.27, and glucose 101. Urinalysis, leuk ocyte esterase 250, wbc's 20 to 50, bacteria not seen. D-dimer 4731. V/Q scan, no evidence of pulmo nary embolism. Venous Doppler of both leg was negative for DVT. Carotid Doppler, mild plaquing in c arotid arteries, no hemodynamically significant stenotic lesions. CAT scan of the head and cervical spine was negative for any acute changes. CAT scan of the chest, abdomen, and pelvis was negative. Hospital Course: This is an 87-year-old pleasant female patient who lives at home with her , was in the kitchen on the day of admission around 4:30 p.m. or so and her had gone outside. While she was in the kitchen trying to put something in the microwave, all of a sudden, she felt like she was feeling weak and as if she might faint and next thing she knows that she was trying to get t o the living room to sit in the couch and she could not make it quite to the living room and she fell down and had a brief episode of syncope. She thinks that she might have passed out for a short time less than few minutes. When she woke up she was on the floor and she was able to get up and get to the phone and called her who came home and called 911 and she was brought into ER. After she was evaluated in the ER, she was admitted to the hospital. Further workup was done in the emergency room when she was admitted to the hospital. In my absence, hospitalist team took over her care. I saw her this morning. Overall, she is feeling better. Cardiology consultation was requested and car diologist, Dr. Oconnor has suggested to discontinue her carvedilol as well as hydralazine as we are co ncerned about possibility of orthostatic hypotension might be underlying cause for this syncope. Tosunil martin, decision was made to discharge her to go home in stable condition with following discharge medica tions and instructions. I will see her for followup as outpatient. Discharge Medications And Instructions: 1.Continue all prior home medication except stop carvedilol and stop hydralazine. 2.Continue lisinopril 20 mg 2 times a day and increase dose of nifedipine 30 mg from 1 tablet once a day to 1 tablet 2 times a day. 3.Follow up at my office this week on which is 03/22/2023. Final Diagnoses: 1.Syncope. 2.Hypertension. 3.Type 2 diabetes mellitus. 4.Mixed hyperlipidemia. 5.Hypothyroidism. 6.Insomnia. 7.Diverticulosis. 8.Allergic rhinitis. 9.Chronic kidney disease, stage 3B. 10.Depression. SANDRO/MODL Voice ID: [id number] Report ID: [id number]
[2023-03-19] MEDS ORDERED: D5 0.45 NS 1,000 ML IV SCH (21:00)
--- NOTE | 2023-03-20 07:06 | ECHO ---
HEIGHT: 5 ft 1 in WEIGHT: 131 lb 0 oz DATE OF STUDY: 03/19/[address]: Jose Zelaya MD 2-DIMENSIONAL: YES M.MODE: YES DOPPLER: YES COLOR FLOW: YES TDS: PORTABLE: YES DEFINITY: BUBBLE STUDY: DIAGNOSIS: SYNCOPE CARDIAC HISTORY: CATHERIZATION: NO SURGERY: NO PROSTHETIC VALVE: NO PACEMAKER: NO MEASUREMENTS (cm) DIASTOLIC (NORMALS) SYSTOLIC (NORMALS) IVSd 1.0 (0.6-1.2) LA Diam 2.2 (1.9-4.0) LVEF 56% LVIDd 3.3 (3.5-5.7) LVIDs 2.3 (2.0-3.5) %FS 28% LVPWd 1.1 (0.6-1.2) Ao Diam 2.5 (2.0-3.7) 2 DIMENSIONAL ASSESSMENT: RIGHT ATRIUM: NORMAL LEFT ATRIUM: NORMAL RIGHT VENTRICLE: NORMAL LEFT VENTRICLE: NORMAL TRICUSPID VALVE: MILD TRICUSPID REGURGITATION MITRAL VALVE: MILD MITRAL REGURGITATION PULMONIC VALVE: NORMAL AORTIC VALVE: MILD AORTIC INSUFFICIENCY PERICARDIAL EFFUSION: NONE AORTIC ROOT: NORMAL LEFT VENTRICULAR WALL MOTION: NORMAL DOPPLER/COLOR FLOW: SEE BELOW COMMENTS: 1. NORMAL LEFT VENTRICULAR EJECTION FRACTION 55-60% 2. NORMAL WALL MOTION 3. GRADE I DIASTOLIC DYSFUNCTION 4. MILD TRICUSPID REGURGITATION 5. MILD MITRAL REGURGITATION 6. MILD AORTIC INSUFFICIENCY TECHNOLOGIST: CHELSEY FLORES
[2023-03-20] MEDS ORDERED: ENOXAPARIN 40 MG/0.4 ML SQ SCH (09:00)
== END 2023-03-19 17:52 | disposition home or self-care (01) ==
LOC: ER 17:38 → ERHOLD 21:11 → 4TH 21:36
PROVIDERS: ADMIT Internal Medicine; ATTEND Internal Medicine
DX: R55 Syncope and collapse (principal); I16.0 Hypertensive urgency; E78.2 Mixed hyperlipidemia; E03.9 Hypothyroidism, unspecified; K21.9 Gastro-esophageal reflux disease without esophagitis; E78.5 Hyperlipidemia, unspecified; H40.9 Unspecified glaucoma; H35.30 Unspecified macular degeneration; J45.909 Unspecified asthma, uncomplicated; E78.00 Pure hypercholesterolemia, unspecified; E86.0 Dehydration; N39.0 Urinary tract infection, site not specified; G47.00 Insomnia, unspecified; K57.90 Diverticulosis of intestine, part unspecified, without perforation or abscess without bleeding; E11.22 Type 2 diabetes mellitus with diabetic chronic kidney disease; I12.9 Hypertensive chronic kidney disease with stage 1 through stage 4 chronic kidney disease, or unspecified chronic kidney disease; N18.32 Chronic kidney disease, stage 3b; F32.A Depression, unspecified
CPT/HCPCS: 93005; 93306; 87088; 85025 ×2; 81001; 87086; 80048 ×4; 36415 ×3; 83735; 85610; 85379; 84443; 84484 ×3; 84439; 70450; 71250; 72125; 71045; 93880; 93970; 78582; 96374; 99285; J1650 ×3; J3010; G0378 ×6; J7030 ×5; J0696 ×3; A9558; A9540

== ENCOUNTER 2023-04-14 16:22 | Emergency (ER) | payer OTHER, BC ==
--- OUTSIDE RECORDS SUMMARY | 2023-04-14 16:28 | XMS REPORT | Continuity of Care Document ---
:1935 Author Organization [facility] t Address [address] [place] [address] Care Team Providers Name Role Phone ANA HEATHER Tripathi Primary Care Physician Unavailable MARTA JOHNSON Attending Clinician Unavailable MARTA JOHNSON Attending Clinician Unavailable RABIA_Gregg_Yury_ALANIS Attending Clinician Unavailable Marta Johnson MD Attending Clinician Alison Varela MD Attending Clinician Suman Harris Attending Clinician Unavailable Arley Ferrari S Attending Clinician ARLEY DELGADILLO Attending Clinician Unavailable Doctor Unassigned, Vale Attending Clinician Unavailable GAVIN VALENTIN Attending Clinician Unavailable Eusebia PT, Lucia Spencer Attending Clinician Unavailable MARY_CHANTALE_Lara Attending Clinician Unavailable 1, [facility] Lab Attending Clinician Unavailable Prashanth Stevenson MD Attending Clinician PRASHANTH STEVENSON Attending Clinician Unavailable Only, Adc Test Attending Clinician Unavailable Eitenne Abdi MD Attending Clinician ETIENNE ABDI Attending Clinician Unavailable Nolan PLATFORM MATERIAL HANDLING SUPERVISORYoselin Attending Clinician Unavailable Korey Treadwell PT, Kimberly Attending Clinician Unavailable Joshua LO, Maki Cotton Attending Clinician Unavailable Jay PT, Sandra Angel Attending Clinician Unavailable Brennon PT, Viki Flores Attending Clinician Unavailable Hola RN, Jacquie Attending Clinician Unavailable Johnny RTVal Attending Clinician Unavailable Grant Haskins MD Attending Clinician Colby Monson MD Attending Clinician Светлана Wallace DO Attending Clinician GO SINGER Attending Clinician Unavailable Nurse, Adc Pob Immunization Attending Clinician Unavailable Go Singer DO Attending Clinician Pob, [facility] Lab Main Attending Clinician Unavailable Tootie Cee Attending Clinician [phone] Jane Marrero GAS ANALYST, Adwoa Attending Clinician Nolan PLATFORM MATERIAL HANDLING SUPERVISOR, Jose Castro Attending Clinician Unavailable MARTA JOHNSON Admitting Clinician Unavailable RABIA_Strasony_Yury_NP Admitting Clinician Unavailable Suman Harris Admitting Clinician Unavailable KNOW, DOES_NOT Admitting Clinician Unavailable MARY_JANA_Lara Admitting Clinician Unavailable Iona VARGAS, Colby Admitting Clinician Marta Johnson MD Admitting Clinician Payers Payer Name Policy Type Policy Number Effective Date Expiration Date S preet MEDICARE PART A AND [id number] 2001 B 00:00:00 [facility] [id number] 2017 00:00:00 MEDICARE PART A \T\ [id number] 2001 B 00:00:00 BCBS TRADITIONAL [id number] 2017 00:00:00 [place]: [id number] 2001 [employer] [employer] SOL[employer] 00:00:00 [place] [id number] 2017 (MEDICARE 00:00:00 SUPPLEMENT) Problems Condition Condition Condition Status Onset Resolution Last Treating Co mments Source Name Details Category Date Date Treatment Clinician Date Gait Gait Disease Active 2021-06 [facility] instabilit instabilit 06-04 it y of y y 00:00: [place] 00 Medical Branch Poor Poor Disease Active 2021-06 Univers balance balance 06-04 ity of 00:00: Medical Branch Generalize Generalize Disease Active 2021-06 U nivers d weakness d weakness 06-04 it y of 00:00: Medical Branch Vomiting Vomiting Disease Active 2020-06 Unive rs 0- ity of 00:00: 00 Medical Branch Primary Primary Disease Active Overview: Univ ers osteoarthr osteoarthr 12-20 Formatt[place] ity of itis of itis of 00:00: g of this [place] right right 00 note Medical shoulder shoulder might be Bran ch different from the original. Added automatic ally from request for surgery [id number] Allergies, Adverse Reactions, Alerts Allergy Allergy Status Severity Reaction(s) Onset Inactive Treating Comm ents Source Name Type Date Date Clinician iodine DA Active U rash, 2022-06 [facility] itching, 0-04 [place] hives-CONTRA 00:00: [facility]pe [facility] morphine DA Active U headache, 2022-06 [facility] nausea 004 [place] 00:00: [facility]ope 00 [facility] adhesive DA Active SV TEARS SKIN 2022-06 [facility] tape 0-04 [place] 00:00: [facility]ope 00 [facility] iodine DA Active U rash, [facility] itching, 8 [place] hives 00:00: [facility] 00 [facility] morphine DA Active U headache, [facility] nausea 8 [place] 00:00: [facility] 00 [facility] latex DA Active SV redness, [facility] blister 8 [place] 00:00: [facility]ope 00 [facility] morphine DA Active U UNKNOWN [facility] 804 [place] 00:00: [facility]ope 00 [facility] Morphine Propensi Active Nausea Only U nivers ty to 207 ity of adverse 00:00: [place] reaction 00 Medical s Branch MORPHINE DRUG Active N/V Univers INGREDI 2 ity of 00:00: [place] 00 Medical Branch Morphine Allergy Active Nausea [facility] to Medical substanc e Social History Social Habit Start Date Stop Date Quantity Comments Source History of tobacco Current smoker Un iversity of use [facility] [place] [facility] Sexual orientation Method [facility] Alcohol intake 2023-04-05 2023-04-05 Current drinker Unive rsity of 00:00:00 00:00:00 of alcohol [facility] (finding) Branch History of Social 2023-04-05 2023-04-05 Univers ity of function 00:00:00 00:00:00 [facility] [place] [facility] Tobacco use and 2022-11-17 2022-11-17 Smokeless Universit y of exposure 00:00:00 00:00:00 tobacco non-user [facility] dical [place] Tobacco Comment 2022-11-17 2022-11-17 pt quit 50 yrs Unive rsity of 00:00:00 00:00:00 ago [facility] [place] [facility] Exposure to 2022-03-10 2022-03-20 Not sure [facility] SARS-CoV-2 (event) 00:00:00 10:49:00 [facility] [place] [facility] Sex Assigned At [birth year] [facility] 00[facility] Smoking Status Start Date Stop Date Source Tobacco smoking [facility] consumption unknown Ex-smoker 2022-11-17 00:00:00 2022-11-17 [facility] [place] 00:00:00 [facility] Branch Medications Ordered Filled Start Stop Current Ordering Indication Dosage Frequency Signature Comments Components Source Medication Medication Date Date Medication? Clinician (SIG) Name Name methylPREDN 2022-06 Yes [id number] 84mg Take 21 Univers ISolone 1-02 tablets by ity of (MEDROL, 00:00: mouth [place] KELLIE,) 4 mg 00 SEE-INSTRU Med ical tablets CTIONS. Branch follow package directions methylPREDN 2022-06 Yes [id number] 84mg Take 21 Univers ISolone 1-02 tablets by ity of (MEDROL, 00:00: mouth [place] KELLIE,) 4 mg 00 SEE-INSTRU Med ical tablets CTIONS. Branch follow package directions methylPREDN 2022-06 Yes [id number] 84mg Take 21 Univers ISolone 1-02 tablets by ity of (MEDROL, 00:00: mouth [place] KELLIE,) 4 mg 00 SEE-INSTRU Med ical tablets CTIONS. Branch follow package directions triamcinolo 2022- No [id number] 40mg Univers ne -11-17 9109 ity of acetonide 17:45: 17:01 [place] (KENALOG) 00 :00 Medical injection Branch 40 mg triamcinolo 2022- No [id number] 40mg 40 mg, Univers ne 11-17 9109 Intramuscu ity of acetonide 17:45: 17:01 [place], [place]CE, [place] (KENALOG[place] 00 :00 1 dose, On Medi curly injection Fri Branch 40 mg 11/17/22 at 1245, Routine triamcinolo 2022- No [id number] 40mg Univers ne 11-17 9109 ity of acetonide 17:45: 17:01 [place] (KENALOG) 00 :00 Medical injection Branch 40 mg triamcinolo 2022- No [id number] 40mg 40 mg, Univers ne 11-17 9109 Intramuscu ity of acetonide 17:45: 17:01 [place], [place]CE, [place] (KENALOG) 00 :00 1 dose, On Medi curly injection Fri Branch 40 mg 11/17/22 at 1245, Routine triamcinolo 2022- No [id number] 40mg Un zia ne 11-17 ity of acetonide 17:15: 16:22 [place] (KENALOG) 00 :00 Medical injection Branch 40 mg triamcinolo 2022- No [id number] 40mg 40 mg, Univers ne 11-17 Intramuscu ity of acetonide 17:15: 16:22 [place], [place]CE, [place] (KENALOG) 00 :00 1 dose, On Medi curly injection Fri Branch 40 mg 11/17/22 at 1215, Routine triamcinolo 2022- No [id number] 40mg Un zia ne 11-17 ity of acetonide 17:15: 16:22 [place] (KENALOG) 00 :00 Medical injection Branch 40 mg triamcinolo 2022- No [id number] 40mg 40 mg, Univers ne 11-17 Intramuscu ity of acetonide 17:15: 16:22 [place], [place]CE, [place] (KENALOG) 00 :00 1 dose, On Medi curly injection Fri Branch 40 mg 11/17/22 at 1215, Routine triamcinolo 2021-06- No [id number] 40mg Univers ne 0-21 03- 9100 ity of acetonide 19:30: 18:25 [place] (KENALOG) 00 :00 Medical injection Branch 40 mg triamcinolo 2021-06- No [id number] 80mg Univers ne 018 03-21 ity of acetonide 19:30: 18:27 [place] (KENALOG) 00 :00 Medical injection Branch 80 mg triamcinolo 2021-06- No [id number] 80mg 80 mg, Univers ne 018 03-21 Intramuscu ity of acetonide 19:30: 18:27 lar, ONCE, [place] (KENALOG) 00 :00 1 dose, On Medi curly injection Tue Branch 80 mg 03/21/22 at 1430, Routine triamcinolo 2021-06- No [id number] 40mg 40 mg, Univers ne 018 03-21 Intramuscu ity of acetonide 19:30: 18:25 lar, [...] 7-10). Indication s: acute pain traMADoL 50 2020- Yes [id number] 50mg Take 1 Univ ers [...] inhalation disk Cranberry 2020-06 Yes Take by Mitralign rs Extract 200 0-03 mouth. ity of mg Cap 13:23: [address] omeprazole 2020-06 Yes 20mg Take 20 mg U nivers 20 mg 0-03 by mouth ity of capsule 13:23: daily. [address] Branch brimonidine 2020-06 Yes brimonidin Univers 0.2 % 0-03 e 0.2 % ity of ophthalmic 13:23: eye drops [place] solution [facility] Branch latanoprost 2020-06 Yes latanopros Univers , PF, 0.005 0-03 t 0.005 % ity of % Drop 13:23: eye drops [facility] fluticasone 2020-06 Yes 1{puff} Inhale 1 Univers -salmeterol 0-03 Puff once ity of (ADVAIR 13:23: daily as [place] DISKUS) 04 needed. Medical 250-50 Branch mcg/dose inhalation disk Cranberry 2020-06 Yes Take by Mitralign rs Extract 200 0-03 mouth. ity of mg Cap 13:23: [address] omeprazole 2020-06 Yes 20mg Take 20 mg U nivers 20 mg 0-03 by mouth ity of capsule 13:23: daily. [address] brimonidine 2020-06 Yes brimonidin Univers 0.2 % 0-03 e 0.2 % ity of ophthalmic 13:23: eye drops [place] solution [facility] latanoprost 2020-06 Yes latanopros Univers , PF, 0.005 0-03 t 0.005 % ity of % Drop 13:23: eye drops [address] fluticasone 2020-06 Yes 1{puff} Inhale 1 Univers -salmeterol 0-03 Puff once ity of (ADVAIR 13:23: daily as [place] DISKUS) 04 needed. Medical 250-50 Branch mcg/dose inhalation disk Cranberry 2020-06 Yes Take by [employer] Extract 200 0-03 mouth. ity of mg Cap 13:23: [address] omeprazole 2020-06 Yes 20mg Take 20 mg U nivers 20 mg 0-03 by mouth ity of capsule 13:23: daily. [address] brimonidine 2020-06 Yes brimonidin Univers 0.2 % 0-03 e 0.2 % ity of ophthalmic 13:23: eye drops [place] solution [address] [place] [address] latanoprost 2020-06 Yes latanopros Univers , PF, 0.005 0-03 t 0.005 % ity of % Drop 13:23: eye drops [address] fluticasone 2020-06 Yes 1{puff} Inhale 1 Univers -salmeterol 0-03 Puff once ity of (ADVAIR 13:23: daily as [place] DISKUS) 04 needed. Medical 250-50 Branch mcg/dose inhalation disk Cranberry 2020-06 Yes Take by [employer]ralign rs Extract 200 0-03 mouth. ity of mg Cap 13:23: [address] omeprazole 2020-06 Yes 20mg Take 20 mg U nivers 20 mg 0-03 by mouth ity of capsule 13:23: daily. [address] brimonidine 2020-06 Yes brimonidin Univers 0.2 % 0-03 e 0.2 % ity of ophthalmic 13:23: eye drops [place] solution [address] [place] [address] latanoprost 2020-06 Yes latanopros Univers , PF, 0.005 0-03 t 0.005 % ity of % Drop 13:23: eye drops [address] fluticasone 2020-06 Yes 1{puff} Inhale 1 Univers -salmeterol 0-03 Puff once ity of (ADVAIR 13:23: daily as [place] DISKUS) 04 needed. Medical 250-50 Branch mcg/dose inhalation disk Cranberry 2020-06 Yes Take by [employer] rs Extract 200 0-03 mouth. ity of mg Cap 13:23: [address] omeprazole 2020-06 Yes 20mg Take 20 mg U nivers 20 mg 0-03 by mouth ity of capsule 13:23: daily. [address] brimonidine 2020-06 Yes brimonidin Univers 0.2 % 0-03 e 0.2 % ity of ophthalmic 13:23: eye drops [place] [address] [place] [address] latanoprost 2020-06 Yes latanopros Univers , PF, 0.005 0-03 t 0.005 % ity of % Drop 13:23: eye drops [address] fluticasone 2020-06 Yes 1{puff} Inhale 1 Univers -salmeterol 0-03 Puff once ity of (ADVAIR 13:23: daily as [place] DISKUS) 04 needed. [facility] [address] Branch mcg/dose inhalation disk Cranberry 2020-06 Yes Take by [employer] rs Extract 200 0-03 mouth. ity of mg Cap 13:23: [address] omeprazole 2020-06 Yes 20mg Take 20 mg U nivers 20 mg 0-03 by mouth ity of capsule 13:23: daily. [address] brimonidine 2020-06 Yes brimonidin Univers 0.2 % 0-03 e 0.2 % ity of ophthalmic 13:23: eye drops [place] solution [address] [place] [address] latanoprost 2020-06 Yes latanopros Univers , PF, 0.005 0-03 t 0.005 % ity of % Drop 13:23: eye drops [address] fluticasone 2020-06 Yes 1{puff} Inhale 1 Univers -salmeterol 0-03 Puff once ity of (ADVAIR 13:23: daily as [place] DISKUS) 04 needed. Medical 250-50 Branch mcg/dose inhalation disk Cranberry 2020-06 Yes Take by [employer] rs Extract 200 0-03 mouth. ity of mg Cap 13:23: [address] omeprazole 2020-06 Yes 20mg Take 20 mg U nivers 20 mg 0-03 by mouth ity of capsule 13:23: daily. [address] brimonidine 2020-06 Yes brimonidin Univers 0.2 % 0-03 e 0.2 % ity of ophthalmic 13:23: eye drops [place] solution [facility] latanoprost 2020-06 Yes latanopros Univers , PF, 0.005 0-03 t 0.005 % ity of % Drop 13:23: eye drops [address] fluticasone 2020-06 Yes 1{puff} Inhale 1 Univers -salmeterol 0-03 Puff once ity of (ADVAIR 13:23: daily as [place] DISKUS) 04 needed. Medical 250-50 Branch mcg/dose inhalation disk Cranberry 2020-06 Yes Take by [employer] rs Extract 200 0-03 mouth. ity of mg Cap 13:23: [address] omeprazole 2020-06 Yes 20mg Take 20 mg U nivers 20 mg 0-03 by mouth ity of capsule 13:23: daily. [address] brimonidine 2020-06 Yes brimonidin Univers 0.2 % 0-03 e 0.2 % ity of ophthalmic 13:23: eye drops [place] solution [facility] latanoprost 2020-06 Yes latanopros Univers , PF, 0.005 0-03 t 0.005 % ity of % Drop 13:23: eye drops [address] fluticasone 2020-06 Yes 1{puff} Inhale 1 Univers -salmeterol 0-03 Puff once ity of (ADVAIR 13:23: daily as [place] DISKUS) 04 needed. Medical 250-50 Branch mcg/dose inhalation disk Cranberry 2020-06 Yes Take by [employer] Extract 200 0-03 mouth. ity of mg Cap 13:23: [address] omeprazole 2020-06 Yes 20mg Take 20 mg U nivers 20 mg 0-03 by mouth ity of capsule 13:23: daily. [address] brimonidine 2020-06 Yes brimonidin Univers 0.2 % 0-03 e 0.2 % ity of ophthalmic 13:23: eye drops [place] solution [facility] latanoprost 2020-06 Yes latanopros Univers , PF, 0.005 0-03 t 0.005 % ity of % Drop 13:23: eye drops [address] fluticasone 2020-06 Yes 1{puff} Inhale 1 Univers -salmeterol 0-03 Puff once ity of (ADVAIR 13:23: daily as [place] DISKUS) 04 needed. Medical 250-50 Branch mcg/dose inhalation disk Cranberry 2020-06 Yes Take by [employer] Extract 200 0-03 mouth. ity of mg Cap 13:23: [address] omeprazole 2020-06 Yes 20mg Take 20 mg U nivers 20 mg 0-03 by mouth ity of capsule 13:23: daily. [address] brimonidine 2020-06 Yes brimonidin Univers 0.2 % 0-03 e 0.2 % ity of ophthalmic 13:23: eye drops [place] solution [facility] latanoprost 2020-06 Yes latanopros Univers , PF, 0.005 0-03 t 0.005 % ity of % Drop 13:23: eye drops [address] fluticasone 2020-06 Yes 1{puff} Inhale 1 Univers -salmeterol 0-03 Puff once ity of (ADVAIR 13:23: daily as [place] DISKUS) 04 needed. Medical 250-50 Branch mcg/dose inhalation disk Cranberry 2020-06 Yes Take by [employer] ers Extract 200 0-03 mouth. ity of mg Cap 13:23: [address] omeprazole 2020-06 Yes 20mg Take 20 mg U nivers 20 mg 0-03 by mouth ity of capsule 13:23: daily. [address] brimonidine 2020-06 Yes brimonidin Univers 0.2 % 0-03 e 0.2 % ity of ophthalmic 13:23: eye drops [place] solution [address] [place] [address] latanoprost 2020-06 Yes latanopros Univers , PF, 0.005 0-03 t 0.005 % ity of % Drop 13:23: eye drops [address] fluticasone 2020-06 Yes 1{puff} Inhale 1 Univers -salmeterol 0-03 Puff once ity of (ADVAIR 13:23: daily as [place] DISKUS) 04 needed. Medical 250-50 Branch mcg/dose inhalation disk Cranberry 2020-06 Yes Take by [employer] Extract 200 0-03 mouth. ity of mg Cap 13:23: [address] omeprazole 2020-06 Yes 20mg Take 20 mg U nivers 20 mg 0-03 by mouth ity of capsule 13:23: daily. [address] brimonidine 2020-06 Yes brimonidin Univers 0.2 % 0-03 e 0.2 % ity of ophthalmic 13:23: eye drops [place] solution [address] [place] [address] latanoprost 2020-06 Yes latanopros Univers , PF, 0.005 0-03 t 0.005 % ity of % Drop 13:23: eye drops [address] fluticasone 2020-06 Yes 1{puff} Inhale 1 Univers -salmeterol 0-03 Puff once ity of (ADVAIR 13:23: daily as [place] DISKUS) 04 needed. [facility] [address] Branch mcg/dose inhalation disk Cranberry 2020-06 Yes Take by [employer] Extract 200 0-03 mouth. ity of mg Cap 13:23: [address] omeprazole 2020-06 Yes 20mg Take 20 mg U nivers 20 mg 0-03 by mouth ity of capsule 13:23: daily. [address] brimonidine 2020-06 Yes brimonidin Univers 0.2 % 0-03 e 0.2 % ity of ophthalmic 13:23: eye drops [place] solution [address] [place] [address] latanoprost 2020-06 Yes latanopros Univers , PF, 0.005 0-03 t 0.005 % ity of % Drop 13:23: eye drops [address] fluticasone 2020-06 Yes 1{puff} Inhale 1 Univers -salmeterol 0-03 Puff once ity of (ADVAIR 13:23: daily as [place] DISKUS) 04 needed. Medical 250-50 Branch mcg/dose inhalation disk Cranberry 2020-06 Yes Take by Unive rs Extract 200 0-03 mouth. ity of mg Cap 13:23: [address] omeprazole 2020-06 Yes 20mg Take 20 mg U nivers 20 mg 0-03 by mouth ity of capsule 13:23: daily. [address] brimonidine 2020-06 Yes brimonidin Univers 0.2 % 0-03 e 0.2 % ity of ophthalmic 13:23: eye drops [place] [address] [place] [address] latanoprost 2020-06 Yes latanopros Univers , PF, 0.005 0-03 t 0.005 % ity of % Drop 13:23: eye drops [address] fluticasone 2020-06 Yes 1{puff} Inhale 1 Univers -salmeterol 0-03 Puff once ity of (ADVAIR 13:23: daily as [place] DISKUS) 04 needed. Medical 250-50 Branch mcg/dose inhalation disk Cranberry 2020-06 Yes Take by [employer] Extract 200 0-03 mouth. ity of mg Cap 13:23: [address] omeprazole 2020-06 Yes 20mg Take 20 mg U nivers 20 mg 0-03 by mouth ity of capsule 13:23: daily. [address] brimonidine 2020-06 Yes brimonidin Univers 0.2 % 0-03 e 0.2 % ity of ophthalmic 13:23: eye drops [place] solution [facility] latanoprost 2020-06 Yes latanopros Univers , PF, 0.005 0-03 t 0.005 % ity of % Drop 13:23: eye drops [address] fluticasone 2020-06 Yes 1{puff} Inhale 1 Univers -salmeterol 0-03 Puff once ity of (ADVAIR 13:23: daily as [place] DISKUS) 04 needed. Medical 250-50 Branch mcg/dose inhalation disk Cranberry 2020-06 Yes Take by [employer] Extract 200 0-03 mouth. ity of mg Cap 13:23: [address] omeprazole 2020-06 Yes 20mg Take 20 mg U nivers 20 mg 0-03 by mouth ity of capsule 13:23: daily. [address] brimonidine 2020-06 Yes brimonidin Univers 0.2 % 0-03 e 0.2 % ity of ophthalmic 13:23: eye drops [place] solution [address] [place] [address] latanoprost 2020-06 Yes latanopros Univers , PF, 0.005 0-03 t 0.005 % ity of % Drop 13:23: eye drops [address] fluticasone 2020-06 Yes 1{puff} Inhale 1 Univers -salmeterol 0-03 Puff once ity of (ADVAIR 13:23: daily as [place] DISKUS) 04 needed. Medical 250-50 Branch mcg/dose inhalation disk Cranberry 2020-06 Yes Take by Unive rs Extract 200 0-03 mouth. ity of mg Cap 13:23: [address] omeprazole 2020-06 Yes 20mg Take 20 mg U nivers 20 mg 0-03 by mouth ity of capsule 13:23: daily. [address] brimonidine 2020-06 Yes brimonidin Univers 0.2 % 0-03 e 0.2 % ity of ophthalmic 13:23: eye drops [place] solution [address] [place] [address] latanoprost 2020-06 Yes latanopros Univers , PF, 0.005 0-03 t 0.005 % ity of % Drop 13:23: eye drops [address] fluticasone 2020-06 Yes 1{puff} Inhale 1 Univers -salmeterol 0-03 Puff once ity of (ADVAIR 13:23: daily as [place] DISKUS) 04 needed. Medical 250-50 Branch mcg/dose inhalation disk Cranberry 2020-06 Yes Take by Unive rs Extract 200 0-03 mouth. ity of mg Cap 13:23: [address] omeprazole 2020-06 Yes 20mg Take 20 mg U nivers 20 mg 0-03 by mouth ity of capsule 13:23: daily. [address] brimonidine 2020-06 Yes brimonidin Univers 0.2 % 0-03 e 0.2 % ity of ophthalmic 13:23: eye drops [place] solution 04 Medical Branch latanoprost 2020-06 Yes latanopros Univers , [...] tablet by ity o f 00:00: mouth [place] 00 every 4 Medical (four) Branch hours as needed for Pain (scale 7-10). Indication s: acute pain traZODone Yes Univers 50 mg 7-14 ity of tablet 00:00: [place] [facility] traZODone Yes Univers 50 mg 7-14 ity of tablet 00:00: [place] [facility] traZODone Yes Univers 50 mg 7-14 ity of tablet 00:00: [place] [facility] traZODone Yes Univers 50 mg 7-14 ity of tablet 00:00: [place] [facility] traZODone Yes Univers 50 mg 7-14 ity of tablet 00:00: [place] [facility] traZODone Yes Univers 50 mg 7-14 ity of tablet 00:00: [place] [facility] traZODone Yes Univers 50 mg 7-14 ity of tablet 00:00: [place] [facility] traZODone Yes Univers 50 mg 7-14 ity of tablet 00:00: [place] [facility] traZODone 0 Yes Univers 50 mg 7-14 ity of tablet 00:00: [place] [facility] traZODone 0 Yes Univers 50 mg 7-14 ity of tablet 00:00: [place] [facility] traZODone 0 Yes Univers 50 mg 7-14 ity of tablet 00:00: [place] [facility] traZODone 0 Yes Univers 50 mg 7-14 ity of tablet 00:00: [place] [facility] traZODone 0 Yes Univers 50 mg 7-14 ity of tablet 00:00: [place] [facility] traZODone 0 Yes Univers 50 mg 7-14 ity of tablet 00:00: [place] [facility] traZODone 0 Yes Univers 50 mg 7-14 ity of tablet 00:00: [place] [facility] traZODone 0 Yes Univers 50 mg 7-14 ity of tablet 00:00: [place] [facility] traZODone 2020-0 Yes Univers 50 mg 7-14 ity of tablet 00:00: Medical Branch traZODone 2020-0 Yes Univers 50 mg 7-14 ity of tablet 00:00: [place] [facility] latanoprost 0 Yes Univer s 0.005 % 6-05 ity of ophthalmic 00:00: [place] drops Medical Branch latanoprost 2017-0 Yes Univer s 0.005 % 6-05 ity of ophthalmic 00:00: [place] drops Medical Branch latanoprost 0 Yes Univer s 0.005 % 6-05 ity of ophthalmic 00:00: [place] drops Medical Branch latanoprost 0 Yes Univer s 0.005 % 6-05 ity of ophthalmic 00:00: [place] drops Medical Branch latanoprost 0 Yes Univer s 0.005 % 6-05 ity of ophthalmic 00:00: [place] drops Medical Branch latanoprost 2017-0 Yes Univer s 0.005 % 6-05 ity of ophthalmic 00:00: [place] drops Medical Branch latanoprost 0 Yes Univer s 0.005 % 6-05 ity of ophthalmic 00:00: [place] drops Medical Branch latanoprost 0 Yes Univer s 0.005 % 6-05 ity of ophthalmic 00:00: [place] drops Medical Branch latanoprost 0 Yes Univer s 0.005 % 6-05 ity of ophthalmic 00:00: [place] drops Medical Branch latanoprost 2017-0 Yes Univer s 0.005 % 6-05 ity of ophthalmic 00:00: [place] drops Medical Branch latanoprost 0 Yes Univer s [...] ity of ophthalmic 00:00: drops Medical Branch atorvastati 2018-0 Yes Univer s n 20 mg 6-03 ity of tablet 00:00: [place] [facility] atorvastati 2018-0 Yes Univer s n 20 mg 6-03 ity of tablet 00:00: [place] [facility] atorvastati 2018-0 Yes Univer s n 20 mg 6-03 ity of tablet 00:00: [place] [facility] atorvastati 2018-0 Yes Univer s n 20 mg 6-03 ity of tablet 00:00: [place] [facility] atorvastati 2018-0 Yes Univer s n 20 mg 6-03 ity of tablet 00:00: [place] [facility] atorvastati 2018-0 Yes Univer s n 20 mg 6-03 ity of tablet 00:00: [place] [facility] atorvastati 2018-0 Yes Univer s n 20 mg 6-03 ity of tablet 00:00: [place] [facility] atorvastati 2018-0 Yes Univer s n 20 mg 6-03 ity of tablet 00:00: [place] [facility] atorvastati 2018-0 Yes Univer s n 20 mg 6-03 ity of tablet 00:00: [facility] atorvastati 2018-0 Yes Univer s n 20 mg 6-03 ity of tablet 00:00: [facility] atorvastati 2018-0 Yes Univer s n 20 mg 6-03 ity of tablet 00:00: [facility] atorvastati 2018-0 Yes Univer s n 20 mg 6-03 ity of tablet 00:00: [facility] atorvastati 2018-0 Yes Univer s n 20 mg 6-03 ity of tablet 00:00: [facility] atorvastati 2018-0 Yes Univer s n 20 mg 6-03 ity of tablet 00:00: [facility] atorvastati 2018-0 Yes Univer s n 20 mg 6-03 ity of tablet 00:00: [facility] atorvastati 2018-0 Yes Univer s n 20 mg 6-03 ity of tablet 00:00: [address] Branch atorvastati 2018-0 Yes Univer s n 20 mg 6-03 ity of tablet 00:00: [address] Branch atorvastati 2017-0 Yes Univer s n 20 mg 6-03 ity of tablet 00:00: [address] carvedilol 2018-0 Yes Univers 12.5 mg 5-29 ity of tablet 00:00: [address] carvedilol 2017-0 Yes Univers 12.5 mg 5-29 ity of tablet 00:00: [address] carvedilol 2018-0 Yes Univers 12.5 mg 5-29 ity of tablet 00:00: [address] Branch carvedilol 2018-0 Yes Univers 12.5 mg 5-29 ity of tablet 00:00: [address] carvedilol 2018-0 Yes Univers 12.5 mg 5-29 ity of tablet 00:00: [address] carvedilol 2018-0 Yes Univers 12.5 mg 5-29 ity of tablet 00:00: [address] Branch carvedilol 2018-0 Yes Univers 12.5 mg 5-29 ity of tablet 00:00: [address] Branch carvedilol 2018-0 Yes Univers 12.5 mg 5-29 ity of tablet 00:00: [place] [address] [facility] carvedilol 2018-0 Yes Univers 12.5 mg 5-29 ity of tablet 00:00: [place] [address] [facility] carvedilol 2018-0 Yes Univers 12.5 mg 5-29 ity of tablet 00:00: [place] [address] [facility] carvedilol 2018-0 Yes Univers 12.5 mg 5-29 ity of tablet 00:00: [address] Branch carvedilol 2018-0 Yes Univers 12.5 mg 5-29 ity of tablet 00:00: [place] [address] [facility] carvedilol 2018-0 Yes Univers 12.5 mg 5-29 ity of tablet 00:00: [place] [address] [facility] carvedilol 2017-0 Yes Univers 12.5 mg 5-29 ity of tablet 00:00: [place] [address] [facility] carvedilol 2017-0 Yes Univers 12.5 mg 5-29 ity of tablet 00:00: [place] [address] [facility] carvedilol 2017-0 Yes Univers 12.5 mg 5-29 ity of tablet 00:00: [address] carvedilol 2017-0 Yes Univers 12.5 mg 5-29 ity of tablet 00:00: [address] carvedilol 0 Yes Univers 12.5 mg 5-29 ity of tablet 00:00: [address] famotidine 0 Yes Univers 40 mg 5-21 ity of tablet 00:00: [address] famotidine 0 Yes Univers 40 mg 5-21 ity of tablet 00:00: [address] famotidine 2017-0 Yes Univers 40 mg 5-21 ity of tablet 00:00: [address] famotidine 0 Yes Univers 40 mg 5-21 ity of tablet 00:00: [address] famotidine 0 Yes Univers 40 mg 5-21 ity of tablet 00:00: [address] famotidine 2017-0 Yes Univers 40 mg 5-21 ity of tablet 00:00: [address] Branch famotidine 0 Yes Univers 40 mg 5-21 ity of tablet 00:00: [address] famotidine 2017-0 Yes Univers 40 mg 5-21 ity of tablet 00:00: [address] Branch famotidine 2017-0 Yes Univers 40 mg 5-21 ity of tablet 00:00: [address] Branch famotidine [id number] Yes Univers 40 mg 5-21 ity of tablet 00:00: [place] [address] [facility] famotidine 2018-0 Yes Univers 40 mg 5-21 ity of tablet 00:00: [address] Branch famotidine 2017-0 Yes Univers 40 mg 5-21 ity of tablet 00:00: [address] Branch famotidine 0 Yes Univers 40 mg 5-21 ity of tablet 00:00: [address] famotidine 2017-0 Yes Univers 40 mg 5-21 ity of tablet 00:00: [place] [facility] famotidine 2018-0 Yes Univers 40 mg 5-21 ity of tablet 00:00: [place] [address] [facility] famotidine 2018-0 Yes Univers 40 mg 5-21 ity of tablet 00:00: [place] [address] [facility] famotidine 2018-0 Yes Univers 40 mg 5-21 ity of tablet 00:00: [place] [address] [facility] famotidine 2018-0 Yes Univers 40 mg 5-21 ity of tablet 00:00: [place] [address] [facility] gabapentin 2018-0 Yes Univers 600 mg 5-07 ity of tablet 00:00: [place] [address] [facility] gabapentin 2018-0 Yes Univers 600 mg 5-07 ity of tablet 00:00: [place] [address] [facility] gabapentin 2018-0 Yes Univers 600 mg 5-07 ity of tablet 00:00: [place] [address] [facility] gabapentin 2018-0 Yes Univers 600 mg 5-07 ity of tablet 00:00: [place] [address] [facility] gabapentin 2018-0 Yes Univers 600 mg 5-07 ity of tablet 00:00: [place] [address] [facility] gabapentin 2018-0 Yes Univers 600 mg 5-07 ity of tablet 00:00: [place] [address] [facility] gabapentin 2018-0 Yes Univers 600 mg 5-07 ity of tablet 00:00: [place] [address] [facility] gabapentin 2018-0 Yes Univers 600 mg 5-07 ity of tablet 00:00: [place] [address] [facility] gabapentin 2018-0 Yes Univers 600 mg 5-07 ity of tablet 00:00: [place] [address] [facility] gabapentin 2018-0 Yes Univers 600 mg 5-07 ity of tablet 00:00: [place] [address] [facility] gabapentin 2018-0 Yes Univers 600 mg 5-07 ity of tablet 00:00: [place] [address] [facility] gabapentin 2018-0 Yes Univers 600 mg 5-07 ity of tablet 00:00: [place] [address] [facility] gabapentin 2018-0 Yes Univers 600 mg 5-07 ity of tablet 00:00: [place] [address] [facility] gabapentin 2018-0 Yes Univers 600 mg 5-07 ity of tablet 00:00: [place] [address] [facility] gabapentin 2018-0 Yes Univers 600 mg 5-07 ity of tablet 00:00: [place] [address] [facility] gabapentin 2018-0 Yes Univers 600 mg 5-07 ity of tablet 00:00: [place] [address] [facility] gabapentin 2018-0 Yes Univers 600 mg 5-07 ity of tablet 00:00: [place] [address] [facility] gabapentin 2018-0 Yes Univers 600 mg 5-07 ity of tablet 00:00: [place] [facility] levothyroxi 2018-0 Yes Univer s ne 50 mcg 3-30 ity of tablet 00:00: [place] [facility] levothyroxi 2018-0 Yes Univer s ne 50 mcg 3-30 ity of tablet 00:00: [place] [address] [facility] levothyroxi 2018-0 Yes Univer s ne 50 mcg 3-30 ity of tablet 00:00: [place] [facility] levothyroxi 2018-0 Yes Univer s ne 50 mcg 3-30 ity of tablet 00:00: [place] [address] [facility] levothyroxi 2018-0 Yes Univer s ne 50 mcg 3-30 ity of tablet 00:00: [place] [address] [facility] levothyroxi 2018-0 Yes Univer s ne 50 mcg 3-30 ity of tablet 00:00: [place] [address] [facility] levothyroxi 2018-0 Yes Univer s ne 50 mcg 3-30 ity of tablet 00:00: [place] [address] [facility] levothyroxi 2018-0 Yes Univer s ne 50 mcg 3-30 ity of tablet 00:00: [place] [address] [facility] levothyroxi 2018-0 Yes Univer s ne 50 mcg 3-30 ity of tablet 00:00: [place] [address] [facility] levothyroxi 2018-0 Yes Univer s ne 50 mcg 3-30 ity of tablet 00:00: [place] [address] [facility] levothyroxi 2018-0 Yes Univer s ne 50 mcg 3-30 ity of tablet 00:00: [place] [address] [facility] levothyroxi 2018-0 Yes Univer s ne 50 mcg 3-30 ity of tablet 00:00: [place] [address] [facility] levothyroxi 2018-0 Yes Univer s ne 50 mcg 3-30 ity of tablet 00:00: [place] [address] [facility] levothyroxi 2018-0 Yes Univer s ne 50 mcg 3-30 ity of tablet 00:00: [place] [address] [facility] levothyroxi 2018-0 Yes Univer s ne 50 mcg 3-30 ity of tablet 00:00: [place] [address] [facility] levothyroxi 2018-0 Yes Univer s ne 50 mcg 3-30 ity of tablet 00:00: [place] [address] [facility] levothyroxi 2018-0 Yes Univer s ne 50 mcg 3-30 ity of tablet 00:00: [address] levothyroxi 2018-0 Yes Univer s ne 50 mcg 3-30 ity of tablet 00:00: [address] cefuroxime cefuroxime No 1 Q12H cefuroxime [facility] [...] No Fluzone [facility] High-Dose High-Dose High-Dose Medical [id number] (PF) 180 (PF) 180 (PF) 180 mcg/0.5 mL mcg/0.5 mL mcg/0.5 mL intramuscul intramuscul intramuscu ar syringe ar syringe lar ADM 0.5ML ADM 0.5ML syringe IM UTD IM UTD ADM 0.5ML IM UTD gabapentin gabapentin No gabapentin [facility] 600 mg [...] 12.5 mg Medica l tablet tablet tablet Immunizations Ordered Filled Date Status Comments Source Immunization Name Immunization Name SARS-COV-2 COVID-19 2021-02-10 Completed Unive rsity of MODERNA VACCINE 00:00:00 [facility] SARS-COV-2 COVID-19 2021-02-10 Completed Unive rsity of MODERNA VACCINE 00:00:00 [facility] SARS-COV-2 COVID-19 2021-02-10 Completed Unive rsity of MODERNA VACCINE 00:00:00 [facility] SARS-COV-2 COVID-19 2021-02-10 Completed Unive rsity of MODERNA VACCINE 00:00:00 [facility] SARS-COV-2 COVID-19 2021-02-10 Completed Unive rsity of MODERNA VACCINE 00:00:00 [facility] SARS-COV-2 COVID-19 2021-02-10 Completed Unive rsity of MODERNA 12+ YRS 00:00:[address] [facility] SARS-COV-2 COVID-19 2021-02-10 Completed Unive rsity of MODERNA 12+ YRS 00:00:[address] [facility] SARS-COV-2 COVID-19 2021-02-10 Completed Unive rsity of MODERNA 12+ YRS 00:00:00 [place] [facility] V[facility] SARS-COV-2 COVID-19 2021-02-10 Completed Unive rsity of MODERNA 12+ YRS 00:00:00 [place] [facility] SARS-COV-2 COVID-19 2021-02-10 Completed Unive rsity of MODERNA 12+ YRS 00:00:00 [place] [facility] V[facility]INE [facility] SARS-COV-2 COVID-19 2021-02-10 Completed Unive rsity of MODERNA 12+ YRS 00:00:00 [place] [facility] V[facility]INE [facility] SARS-COV-2 COVID-19 2021-02-10 Completed Unive rsity of MODERNA 12+ YRS 00:00:00 [place] [facility] VACCINE [facility] SARS-COV-2 COVID-19 2021-02-10 Completed Unive rsity of MODERNA 12+ YRS 00:00:00 [place] [facility] V[facility]INE [facility] SARS-COV-2 COVID-19 2021-02-10 Completed Unive rsity of MODERNA 12+ YRS 00:00:00 [place] [facility] TDAP 2018-11-22 Completed University of 00:00:00 [facility] TDAP 2018-11-22 Completed University of 00:00:00 [facility] TDAP 2018-11-22 Completed University of 00:00:00 [facility] TDAP 2018-11-22 Completed University of 00:00:00 [facility] TDAP 2018-11-22 Completed University of 00:00:00 [facility] TDAP 2018-11-22 Completed University of 00:00:00 [facility] TDAP 2018-11-22 Completed University of 00:00:00 [facility] TDAP 2018-11-22 Completed University of 00:00:00 [facility] TDAP 2018-11-22 Completed University of 00:00:00 [facility] TDAP 2018-11-22 Completed University of 00:00:00 [facility] TDAP 2018-11-22 Completed University of 00:00:00 [facility] TDAP 2018-11-22 Completed University of 00:00:00 [facility] TDAP 2018-11-22 Completed University of 00:00:00 [facility] TDAP 2018-11-22 Completed University of 00:00:00 [facility] Zoster Vaccine 2018-01-18 Completed University of Recombinant 00:00:00 [facility] Zoster Vaccine 2018-01-18 Completed University of Recombinant 00:00:00 [facility] Zoster Vaccine 2018-01-18 Completed University of Recombinant 00:00:00 [facility] Zoster Vaccine 2018-01-18 Completed University of Recombinant 00:00:00 [facility] Zoster Vaccine 2018-01-18 Completed University of Recombinant 00:00:00 [facility] Zoster Vaccine 2018-01-18 Completed University of Recombinant 00:00:00 [facility] Zoster Vaccine 2018-01-18 Completed University of Recombinant 00:00:00 [facility] Zoster Vaccine 2018-01-18 Completed University of Recombinant 00:00:00 [facility] Zoster Vaccine 2018-01-18 Completed University of Recombinant 00:00:00 [facility] Zoster Vaccine 2018-01-18 Completed University of Recombinant 00:00:00 [facility] Zoster Vaccine 2018-01-18 Completed University of Recombinant 00:00:00 [facility] Zoster Vaccine 2018-01-18 Completed University of Recombinant 00:00:00 [facility] Zoster Vaccine 2018-01-18 Completed University of Recombinant 00:00:00 [facility] Zoster Vaccine 2018-01-18 Completed University of Recombinant 00:00:00 [facility] [place] [facility] TDAP Unknown Completed [facility] Zoster Vaccine Unknown Completed [facility] SARS-COV-2 COVID-19 Unknown Completed Unive rsity of MODERNA 12+ YRS [facility]ACCINE [place] TDAP Unknown Completed [facility] Zoster Vaccine Unknown Completed [facility] SARS-COV-2 COVID-19 Unknown Completed Unive rsity of MODERNA 12+ YRS [facility] VACCINE Branch TDAP Unknown Completed [facility] Zoster Vaccine Unknown Completed [facility] Recombinant [facility] SARS-COV-2 COVID-19 Unknown Completed Unive rsity of MODERNA 12+ YRS [facility] VACCINE Branch TDAP Unknown Completed [facility] Zoster Vaccine Unknown Completed [facility] Recombinant [facility] SARS-COV-2 COVID-19 Unknown Completed Unive rsity of MODERNA 12+ [address] [facility] Vital Signs Vital Name Observation Time Observation Value Comments Source Systolic blood 2023-04-05 15:37:00 104 mm[Hg] Univer sity of [facility] Branch Diastolic blood 2023-04-05 15:37:00 64 mm[Hg] [facility] [place] [facility] Heart rate 2023-04-05 15:37:00 75 /min [facility] [place] [facility] Body height 2023-04-05 15:37:00 154.9 cm [facility] [place] [facility] Body weight 2023-04-05 15:37:00 53.842 kg [facility] [place] [facility] BMI 2023-04-05 15:37:00 22.43 kg/m2 [facility] [place] [facility] Systolic blood 2022-11-17 16:17:00 142 mm[Hg] [facility] [place] [facility] Diastolic blood 2022-11-17 16:17:00 56 mm[Hg] [facility] [place] [facility] Heart rate 2022-11-17 16:17:00 52 /min [facility] [place] [facility] Body height 2022-11-17 16:16:00 162.6 cm [facility] [place] [facility] Body weight 2022-11-17 16:16:00 62.551 kg [facility] [place] [facility] BMI 2022-11-17 16:16:00 23.67 kg/m2 [facility] [place] [facility] Systolic blood 2022-03-21 15:34:00 138 mm[Hg] [facility] [place] [facility] Diastolic blood 2022-03-21 15:34:00 72 mm[Hg] [facility] [place] [facility] Heart rate 2022-03-21 15:34:00 64 /min [facility] [place] [facility] Body height 2022-03-21 15:34:00 154.9 cm [facility] [place] [facility] Body weight 2022-03-21 15:34:00 66.679 kg [facility] [place] [facility] BMI 2022-03-21 15:34:00 27.78 kg/m2 [facility] [place] [facility] Oxygen saturation 2022-03-21 15:34:00 98 /min [facility] in Arterial blood Medical Br anch by Pulse oximetry BP Diastolic 2020-09-14 00:00:00 62 mm[Hg] [facility] Height 2020-09-14 00:00:00 61 [in_i] [facility] bliss BMI (Body Mass 2020-09-14 00:00:00 26.5 kg/m2 [facility] Index) BP Systolic 2020-09-14 00:00:00 116 mm[Hg] [facility] Body Weight 2020-09-14 00:00:00 140 [lb_av] [facility] Procedures Procedure Date / Time Performing Clinician Source Performed XR HIPS 2 VW BILATERAL 2023-04-05 15:47:45 [facility] [place] BRAIN SPECT W I 123 2023-04-04 20:09:00 Alison Varela [facility] PATIENT FINANCIAL 2022-11-17 16:08:44 [facility] CONSENT/REFUSAL FOR 2022-03-21 15:31:03 Doctor Unassigned, Unive [facility] DIAGNOSIS AND TREATMENT [facility] ASSIGNMENT OF BENEFITS 2021-09-01 15:36:52 Doctor Unassigned, Un [facility] [place] [facility] ASSIGNMENT OF BENEFITS 2021-08-04 20:54:34 Doctor Unassigned, Un [facility] [place] [facility] Hysterectomy with [facility] Oopherectomy [...] Planned Activity Planned Date Details Comments Source Future Scheduled 2023-04-04 65+ PNEUMOCOCCAL [facility] Test 14:58:40 VACCINE (1 - PCV) [code = 65+ PNEUMOCOCCAL VACCINE (1 - PCV)] Future Scheduled 2023-04-04 SHINGLES VACCINES (2 [facility] Test 14:58:40 of 2) [code = SHINGLES VACCINES (2 of 2)] Diagnostic Test 2020-09-15 urinalysis, complete [facility] Pending 00:00:00 [code = urinalysis, complete] Diagnostic Test 2020-09-14 urinalysis, dipstick [facility] Pending 00:00:00 [code = urinalysis, dipstick] Encounters Start End Encounter Admission Attending Care Care Encounter Source Date/Time Date/Time Type Type Clinicians Facility Department ID 2022-10-09 Outpatient [facility] [id number] [place] 13:34:25 [id number] [facility] 2022-10-04 Outpatient [facility] [id number] [place] 10:27:02 [id number] [facility] 2022-10-02 Outpatient [facility] [id number] [place] 09:15:23 [id number] [facility] 2022-10-02 Outpatient [facility] [id number] [place] 07:21:02 [id number] [facility] 2022-09-20 Outpatient [facility] [id number] [place] 09:46:40 [id number] [facility] 2021-04-05 Emergency [facility] [id number] [facility] [id number] Univers 22:05[facility]04 [facility] [id number] Univers 09:11:17 [facility] 2021-04-03 Emergency [facility] [id number] Univers 05:23[facility] 2023-04-30 2023-04-30 Outpatient R [facility] [id number] Univers 08:00:00 08[facility]00[facility]23-[facility]11 2023-04-11 Outpatient FOG_Stramel AOSM AOSM [id number] [place] 00:00:00 00:00:00 _Yury_NP [id number] [facility] 2023-04-11 2023-04-11 Outpatient FOG_Stramel AOSM AOSM [id number] [place] 00:00:00 00:00:00 _Jacob_NP [id number] [facility] 2023-04-05 2023-04-05 [facility] [id number] Univers 10:36:44 23:59:00 Encounter Marta [facility] [id number] [facility] 4.2.7.2.686 Guillermo as OSWALDO?BLEA [id number] Me dicronaldo RODRIGUEZ 809 [place] MEDICAL OFFICE [facility] 2023-04-05 2023-04-05 Outpatient R MARTA JOHNSON [facility] [id number] Univers 10:45:00 10:53:32 ELIZABETH MARTA mohrcarl [facility] 2023-04-05 2023-04-05 Office Elizabeth [facility] [id number] Univers 10:45:00 10:53:32 Visit Marta [facility] [id number] it y [facility] 4.2.7.2.686 Guillermo as OSWALDO?BLEA [id number] Ct jermain RODRIGUEZ 198 [facility] OFFICE [facility] 2023-04-04 2023-04-04 [facility], 1.2.840.1 [id number] Methodi 13:18:36 23:59:00 Encounter Alison Dougherty [id number] 3.430.2.7 Hospit a .3.336325 l .8 2023-04-04 2023-04-04 [facility] 1.2.840.1 [id number] Methodi 08:55:35 13:17:00 Encounter Alison Dougherty [id number] 3.430.2.7 Hospit a .3.371450 l .8 2023-04-04 2023-04-04 Outpatient [facility] [id number] [place] 00:00:00 00:00:00 ALISON [address] 2023-04-04 2023-04-04 Outpatient [facility] [id number] [place] [address] 00:00:00 00:00:00 ALISON [address] 2023-03-07 2023-03-07 Outpatient EL Kimberly, [facility] [id number] [facility] 09:47:00 09:47:00 [place] [facility] [place] [facility] 2023-03-05 2023-03-05 Transcribe [facility] 1.2.840.1 [id number] Methodi 00:00:00 00:00:00 Orders Alison Dougherty [id number] 3.430.2.7 Hospit a .3.391968 l .8 2023-01-08 2023-01-08 Outpatient LUIS Harris [facility] [id number] [facility] 06:18:00 06:18:00 [place] 01 [place] [facility] 2023-01-03 2023-01-03 Outpatient FOG_Stramel AOSM AOSM [id number] [place] 00:00:00 00:00:00 _Yury_NP [id number] [facility] 2023-01-03 2023-01-03 Outpatient FOG_Stramel AOSM AOSM [id number] [place] 00:00:00 00:00:00 _Yury_NP [id number] [facility] 2023-01-03 2023-01-03 Outpatient FOG_Stramel AOSM AOSM [id number] [place] 00:00:00 00:00:00 _Yury_NP [id number] [facility] 2023-01-03 2023-01-03 Outpatient FOG_Stramel AOSM AOSM [id number] [place] 00:00:00 00:00:00 _Yury_NP [id number] [facility] 2023-01-03 2023-01-03 Outpatient FOG_Stramel AOSM AOSM [id number] [place] 00:00:00 00:00:00 _Yury_NP [id number] [facility] 2023-01-03 2023-01-03 Outpatient FOG_Stramel AOSM AOSM [id number] [place] 00:00:00 00:00:00 _Yury_NP [id number] [facility] 2023-01-03 2023-01-03 Outpatient FOG_Stramel AOSM AOSM [id number] [place] 00:00:00 00:00:00 _Yury_NP [id number] [facility] 2023-01-03 2023-01-03 Outpatient FOG_Stramel AOSM AOSM [id number] [place] 00:00:00 00:00:00 _Yury_NP [id number] [facility] 2023-01-02 2023-01-02 Outpatient FOG_Stramel AOSM AOSM [id number] [place] 00:00:00 00:00:00 _Jacob_NP [id number] [facility] 2023-01-01 2023-01-01 Outpatient FOG_Stramel AOSM AOSM [id number] [place] 00:00:00 00:00:00 _Jacob_NP [id number] [facility] 2022-11-17 2022-11-17 [facility] 1.2.840.114 [id number] Univers 11:15:00 11:30:00 Visit [facility] [id number] it y of [place] 4.2.7.2.686 Guillermo as OSWALDO?BLEA [id number] [address] OFFICE [facility] 2022-11-17 2022-11-17 [facility] [id number] Univers 11:15:00 11:15:00 ARLEY [facility] 2022-11-17 2022-11-17 Orders Doctor RONY 1.2.840.114 [id number] Univers 00:00:00 00:00:00 Only Unassigned, DIANA 350.1.13.10 ity of [facility] 4.2.7.2.686 Guillermo as [id number] [address] 2022-10-06 2022-10-06 Outpatient GAVIN VALENTIN [facility] [id number] [place] 10:30:00 10:30:00 Health 2022-04-06 2022-04-06 Outpatient Yohana JOHNSON [facility] [id number] Univers 14:30:00 14:30:00 MARTA gallo [facility] 2022-03-31 2022-03-31 Outpatient Yohana JOHNSON [facility] [id number] Univers 13:45:00 15:23:01 MARTA carl [facility] 2022-03-31 2022-03-31 Ancillary Lucia Laws [facility] 1.2.84 0.114 [id number] Univers 13:45:00 15:23:01 Visit Marta Johnson 350.1.13.10 ity of [place].[address] [place] [facility] [id number] Ct dical NAL [address] [facility] 2022-03-21 2022-03-21 Outpatient R ELIZABETH [facility] [id number] Univers 10:44:38 23:59:00 MARTA mohrcarl [facility] 2022-03-21 2022-03-21 Office Leona [facility] 1.2.840.114 [id number] 42 Univers 11:00:00 11:26:31 Visit [facility] 350.1.13.10 it y of [facility] 4.2.7.2.686 Guillermo as OSWALDO?BLEA [phone] Ct dical KNEY 198 [facility] OFFICE [facility] 2022-03-21 2022-03-21 Orders Doctor RONY 1.2.840.114 [id number] Univers 00:00:00 00:00:00 Only Unassigned, DIANA 350.1.13.10 ity of [facility] 4.2.7.2.686 Guillermo as [phone] [facility] [address] [place] 2021-09-18 2021-09-18 Outpatient _[facility] PRIV PRIV 527 [id number] [facility] 01:20:00 01:20:00 _Lara [id number] [facility] 2021-09-01 2021-09-01 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 1, Adc Lab [facility] 1.2.840.114 [id number] Univers 10:15:00 10:30:00 Visit Prashanth Stevenson 350.1.13.10 ity of [facility] 4.2.7.2.686 [facility] [phone] [facility] [address] [place] 2021-09-01 2021-09-01 Outpatient R GRAHAM [facility] [id number] Univers 10:15:00 10:15:00 PRASHANTH gallo [facility] 2021-09-01 2021-09-01 Orders Doctor URIBE 1.2.840.114 [id number] Univers 00:00:00 00:00:00 Only Unassigned, DIANA 350.1.13.10 ity of [place] [facility] 4.2.7.2.686 Guillermo as [phone] [facility] [address] [place] 2021-08-21 2021-08-21 Outpatient GC_[facility] PRIV PRIV 527 6335- [facility] 12:58:00 12:58:00 _Moshe-M [id number] [facility] 2021-08-04 2021-08-04 Laboratory Only, Adc Test [facility] 1.2.840. 114 [id number] Univers 15:15:00 15:30:00 Only Etienne Abdi 350.1.13.10 ity [facility] 4.2.7.2.686 [facility] [phone] [facility] [address] 2021-08-04 2021-08-04 Outpatient R GLENDA [facility] [id number] Univers 15:15:00 15:15:00 ETIENNE ity [facility] 2021-08-04 2021-08-04 Orders Doctor URIBE 1.2.840.114 [id number] Univers 00:00:00 00:00:00 Only Unassigned, DIANA 350.1.13.10 ity of [facility] 4.2.7.2.686 Guillermo as [phone] [facility] [address] 2021-07-24 2021-07-24 Outpatient [facility] PRIV PRIV 527 6335- [facility] 01:10:00 01:10:00 _Moshe-M [id number] [facility] 2021-06-22 2021-06-22 Outpatient [facility] PRIV PRIV 527 [id number] [facility] 11:11:00 11:11:00 _Moshe-M [id number] [facility] 2021-06-21 2021-06-21 Outpatient [facility] PRIV PRIV 527 [id number] [facility] 10:38:00 10:38:00 _Miller-M [id number] [facility] 2021-06-07 2021-06-07 Ancillary Yoselin Francisco [facility] 1.2.840 .114 [id number] Univers 08:40:00 09:20:00 Visit Marta Johnson 350.1.13.10 ity of [place] 4.2.7.2.686 [facility] [phone] Ct dical [facility] [address] [facility] 2021-06-07 2021-06-07 Outpatient R ELIZABETH [facility] [id number] Univers 08:40:00 08:40:00 MARTA gallo of [facility] 2021-06-02 2021-06-02 Ancillary Yoselin Francisco [facility] 1.2.840 .114 [id number] Univers 08:00:00 08:40:00 Visit Marta Johnson FAN 350.1.13.10 ity of [place].7.2.[place] [id number] Ct dical NAL [address] [facility] 2021-06-01 2021-06-01 Ancillary Kimberly Mcgovern [facility] 1 .2.840.114 [id number] Univers 08:00:00 10:11:08 Visit Marta Johnson Mark CHAVIRA 350.1.13.10 ity of [place] 4.2.7.2.686 [place] [phone] Ct dical NAL [address] [facility] 2021-05-26 2021-05-26 Ancillary Yoselin Francisco [facility] 1.2.840 .114 [id number] Univers 08:00:00 08:40:00 Visit Marta Johnson Mark CHAVIRA 350.1.13.10 ity of [place] 4.2.7.2.686 [place] [phone] Ct dical NAL [address] [facility] 2021-05-19 2021-05-19 Outpatient R ELIZABETH [facility] [id number] Univers 09:00:00 13:36:59 MARTA gallo [facility] 2021-05-19 2021-05-19 Ancillary Yoselin Francisco [facility] 1.2.840 .114 [id number] Univers 09:00:00 13:36:59 Visit Marta Johnson Mark CHAVIRA 350.1.13.10 ity of [place] 4.2.7.2.686 [place] [phone] Ct dical NAL [address] [facility] 2021 2021 Ancillary Yoselin Francisco [facility] 1.2.840 .114 [id number] Univers 08:24:27 09:04:27 Visit Marta Johnson Mark FAN 350.1.13.10 ity of [place] 4.2.7.2.[place] [phone] Ct dical NAL [address] [facility]ING 2021-05-12 2021-05-12 Ancillary Maki Lewis [facility] 1.2. [id number] [facility] 09:07:45 09:47:45 Visit JohnsonMarta randall Mark FAN 350.1.13.10 ity of [place] 4.2.7.2.686 [place] [phone] Ct dical NAL [address] [facility] 2021-05-10 2021-05-10 Ancillary Yoselin Francisco [facility] 1.2.840 .114 [id number] Univers 08:14:36 09:10:52 Visit Marta Johnson Mark FAN 350.1.13.10 ity of [place] 4.2.7.2.686 [place] [phone] Ct dical NAL [address] [facility] 2021-05-04 2021-05-04 Ancillary Yoselin Francisco [facility] 1.2.[id number] [facility] 09:00:17 09:40:17 Visit Johnson Marta CHAVIRA 350.1.13.10 ity of [place] 4.2.7.2.686 [place] [phone] Ct dical NAL [address] [facility] 2021-05-02 2021-05-02 Outpatient R ELIZABETH [facility] [id number] Univers 09:20:00 10:49:18 MARTA ity of [facility] 2021-05-02 2021-05-02 Ancillary Korey Treadwell Kimberly [facility] [id number] [facility] 08:55:20 10:49:18 Visit Marta Johnson 350.1.13.10 ity of [place] 4.2.7.2.686 [place] [phone] Ct dical NAL [address] [facility] 2021-04-27 2021-04-27 Ancillary Maki Lewis [facility] 1.2. 840.[id number] [place] [address] 10:25:37 11:05:37 Visit Johnson Marta CHAVIRA 350.1.13.10 ity of [place] 4.2.7.2.686 [place] [phone] Ct dical NAL [address] [facility] 2021-04-26 2021-04-26 Ancillary Yoselin Francisco [facility] 1.2.[id number] [facility] 11:21:18 12:01:18 Visit Johnson Marta CARBAJALSOFI 350.1.13.10 ity of [place] 4.2.7.2.686 [place] [phone] Ct dical NAL [address] [facility] 2021-04-20 2021-04-20 Ancillary Yoselin Francisco [facility] 1.2.[id number] [facility] 08:55:10 09:35:10 Visit Marta Johnson 350.1.13.10 ity of [place] 4.2.7.2.686 [place] [phone] Ct dical NAL [address] [facility] 2021-04-13 2021-04-13 Ancillary Yoselin Francisco [facility] 1.2.[id number] [facility] 09:00:14 09:40:14 Visit Marta Johnson 350.1.13.10 ity of [place] 4.2.7.2.686 [place] [phone] Ct dical NAL [address] [facility] 2021-04-11 2021-04-11 Ancillary Sandra Tohmpson [facility] 1.2.840. [id number] [facility] 08:56:10 16:47:24 Visit Marta Johnson 350.1.13.10 ity of [place] 4.2.7.2.686 [place] [phone] Ct dical NAL [address] [facility] 2021-04-08 2021-04-08 Ancillary Lucia Laws [facility] 1.2.[id number] [facility] 08:59:21 09:39:21 Visit Marta Johnson 350.1.13.10 ity of [place] 4.2.7.2.686 [place] [phone] Ct dical NAL [address] [facility] 2021-04-06 2021-04-06 Ancillary Yoselin Francisco [facility] 1.2.[id number] [facility] 09:04:55 09:44:55 Visit Marta Johnson 350.1.13.10 ity of [place] 4.2.7.2.[place] [phone] Ct dical NAL [address] [facility] 2021-04-04 2021-04-04 Ancillary Lucia Laws [facility] 1.2.[id number] [facility] 10:12:57 10:52:57 Visit Marta Johnson 350.1.13.10 ity of [place] 4.2.7.2.686 [place] [id number] Ct dical NAL [address] [facility] 2021-04-01 2021-04-01 Outpatient R ELIZABETH [facility] [id number] [facility] 13:40:00 14:26:09 MARTA ity of [facility] 2021-04-01 2021-04-01 Ancillary Yoselin Francisco [facility] 1.2.[id number] [facility] 13:24:12 14:26:09 Visit Marta Johnson 350.1.13.10 ity of [place] 4.2.7.2.686 [place] [phone] Ct dical NAL [address] [facility] 2021-03-29 2021-03-29 Ancillary Maki Lewis [facility] 1.[id number] [facility] 09:07:25 09:47:25 Visit Marta Johnson 350.1.13.10 ity of [place] 4.2.7.2.[place] [phone] Ct dical nal [address] [facility] 2021-03-25 2021-03-25 Hospital Elizabeth [facility] 1.2.840.[id number] [facility] 10:25:00 23:59:00 Encounter Marta Flores [facility] 350.1.13.10 ity of [place] 4.2.7.2.686 Guillermo as Oswaldo?Blea [phone] Me dicronaldo rodriguez 809 [facility] Office [facility] 2021-03-25 2021-03-25 Outpatient R LEONA [facility] [id number] Univers 10:45:00 10:45:00 ARLEY ity of [facility] 2021-03-25 2021-03-25 Office Leona [facility] 1.2.840.114 [id number] Univers 10:10:35 10:25:35 Visit Arley [facility] 350.1.13.10 it y of [place] 4.2.7.2.686 Guillermo as Oswaldo?Blea [phone] Me jermain rodriguez 198 [facility] Office [facility] 2021-03-17 2021-03-17 Ancillary Sandra Thompson [facility] 1.2.840. 114 [id number] Univers 13:26:55 15:19:10 Visit Marta Johnson 350.1.13.10 ity of [place].2.[place] [phone] Ct dical nal 179 [facility] 2021-03-15 2021-03-15 Ancillary Savannah Thompsoncarl Jeanne [facility] 1.2.840. 114 [id number] Univers 13:35:10 14:15:10 Visit Marta Johnson 350.1.13.10 ity of [place] 4.2.7.2.686 [place] [phone] Ct dical nal 179 [facility] 2021-03-10 2021-03-10 Ancillary Viki Willett [facility] 1.2.8 40.114 [id number] Univers 13:32:20 14:12:20 Visit Marta Johnson 350.1.13.10 ity of [place] 4.[place].2.[place] [phone] Ct dical nal 179 [facility] 2021-03-08 2021-03-08 Ancillary Kimberly Mcgovern [facility] 1 .2.840.114 [id number] Univers 13:38:07 14:18:07 Visit Marta Johnson 350.1.13.10 ity of [place] 4.2.7.2.686 [place] [id number] Ct dical nal [address] Building 2021-03-08 2021-03-08 Transition Venkat Simental 1.2.840.114 [id number] Univers 00:00:00 00:00:00 of Care Jacquie Moralez 350.1.13.10 it y of [place] 4.2.7.2.686 [place] [phone] [facility] [address] 2021-03-07 2021-03-07 Telephone Johnny [facility] 1.2.512.210 [id number] Univers 00:00:00 00:00:00 [facility] 350.1.13.10 [place] y of [place].2.[place] [phone] [facility] Medical [address] Office Building 2021-03-07 2021-03-07 Patient Doctor RONY 1.2.840.114 [id number] Univers 00:00:00 00:00:00 Secure Msg Unassigned, DIANA 350.1.13.10 ity of [facility] 4.2.7.2.686 Guillermo as [phone] [facility] [address] 2021-03-04 2021-03-06 Hospital Grant Haskins [facility] 1.2.840.1 14 [id number] Univers 09:31:00 12:57:00 Encounter Colby Monson 350.1.13.10 ity of [place] 4.2.7.2.686 [place] [phone] [facility] [address] 2021-03-01 2021-03-01 Ancillary Viki Willett [facility] 1.2.8 40.114 [id number] Univers 14:25:13 15:05:13 Visit Marta Johnson 350.1.13.10 ity of [place] 4.2.[place].2.[place] [phone] Ct dical nal [address] [place] Building 2021-03-01 2021-03-01 Orders Doctor RONY 1.2.840.114 [id number] Univers 00:00:00 00:00:00 Only Unassigned, DIANA 350.1.13.10 ity of [facility] 4.2.7.2.686 Guillermo as [phone] [facility] [address] [place] 2021-02-24 2021-02-24 Office Leona [facility] 1.2.840.114 [id number] Univers 10:19:44 10:34:44 Visit [facility] 350.1.13.10 it y of [place] 4.2.7.2.686 Guillermo as Oswaldo?Blea [phone] Me dical kney 198 [facility] Office [facility] 2021-02-24 2021-02-24 Outpatient R LEONA [facility] [id number] Univers 10:30:00 10:30:00 ARLEY itcarl [facility] 2021-02-22 2021-02-22 Ancillary Yoselin Francisco [facility] 1.2.840 .114 [id number] Univers 13:03:21 14:22:13 Visit Marta Johnson 350.1.13.10 ity of [place].2.[place] [phone] Me dical nal 179 [facility] 2021-02-13 2021-02-13 Emergency Rodrigo [facility] 1.2.840.114 [id number] Univers 13:21:00 13:40:00 Светлана Chavira 350.1.13.10 ity of [place] 4.2.7.2.686 [place] [phone] [facility] [address] [place] 2021-02-10 2021-02-10 Outpatient Yohana SINGER [facility] [id number] Univers 15:50:00 15:50:00 GO gallo [facility] 2021-02-10 2021-02-10 Imm/Inj Nurse, Adc Pob Immunization [facility] 1.2.840.114 [id number] Univers 14:30:28 14:30:37 Visit Go Singer 350.1.13 .10 ity of [place] 4.2.[place].2.[place] [phone] Me dical nal 421 [facility] 2021-02-10 2021-02-10 Ancillary Maki Lewis [facility] 1.2. 840.114 [id number] Univers 13:41:23 14:21:23 Visit Marta Johnson 350.1.13.10 ity of [place] 4.2.7.2.[place] [phone] Ct dical nal [address] Building 2021-02-09 2021-02-09 Ancillary Maki Lewis [facility] 1.2. 840.114 [id number] Univers 13:04:52 13:44:52 Visit Marta Johnson 350.1.13.10 ity of [place] 4.2.7.2.[place] [phone] Ct dical nal [address] Building 2021-02-03 2021-02-03 Ancillary Yoselin Francisco [facility] 1.2.840 .114 [id number] Univers 13:41:56 14:24:39 Visit Marta Johnson 350.1.13.10 ity of [place] 4.2.7.2.[place] [phone] Ct dical nal [address] [facility] 2021-02-03 2021-02-03 Outpatient [facility] [id number] Univers 13:40:00 13:40:00 ity of [facility] 2021-02-01 2021-02-01 Ancillary Maki Lewis [facility] 1.2. 840.114 [id number] Univers 14:12:47 14:52:47 Visit Marta Johnson 350.1.13.10 ity of [place] 4.[place].2.[place] [phone] Ct dical nal [address] [facility] 2021-01-27 2021-01-27 Ancillary Mabel Viki [facility] 1.2.840. 114 [id number] Univers 12:58:46 13:42:22 Visit Marta Johnson 350.1.13.10 ity of [place] 4.2.7.2.[place] [phone] Ct dical nal [address] Building 2021-01-27 2021-01-27 [facility] [id number] Univers 13:00:00 13:00:00 MARTA gallo [facility] 2021-01-24 2021-01-24 Outpatient [facility] [id number] Univers 13:45:00 13:45:00 MARTA gallo [facility] 2021-01-10 2021-01-10 [facility] 1.2.840.114 [id number] Univers 13:54:40 23:59:00 Encounter Marta Chavira 350.1.13.10 ity of [place] 4.2.[place].2.686 [place] [phone] [facility] [address] [place] 2021-01-10 2021-01-10 Office [facility] 1.2.281.804 [id number] Univers 14:27:04 15:14:37 Visit Marta Buckley 350.1.13.10 it y of Surgical 4.2.7.2.686 Guillermo as Specialti [id number] Ct dical es 198 [facility] 2021-01-10 2021-01-10 Outpatient [facility] [id number] Univers 14:45:00 14:45:00 MARTA gallo [facility] 2021-01-10 2021-01-10 Telephone [facility] 1.2.840.114 [id number] Univers 00:00:00 00:00:00 Marta Buckley 350.1.13.10 it y of Surgical 4.2.7.2.686 Guillermo as Specialti [phone] Ct dical es 198 [facility] 2021-01-10 2021-01-10 Orders Doctor RONY 1.2.840.114 [id number] Univers 00:00:00 00:00:00 Only Unassigned, DIANA 350.1.13.10 ity of [facility] 4.2.7.2.686 Guillermo as [phone] [facility] [address] [place] 2020-12-31 2020-12-31 Transition Venkat Simental 1.2.840.114 [id number] Univers 00:00:00 00:00:00 of Care Jacquie Moralez 350.1.13.10 it y of [place] 4[place]2.[place].2.[place] [id number] [facility] [address] 2020-12-27 2020-12-30 Hospital Marta Johnson [facility] 1.2.840 .114 [id number] Univers 06:41:00 15:15:00 Encounter Arley Delgadillo 350.1.13.10 ity of [place] 4.[place].2.[place] [phone] [facility] [address] 2020-12-27 2020-12-27 Surgery [facility] 1.2.283.707 [id number] Univers 07:30:00 10:23:00 Marta Chavira 350.1.13.10 i ty of [place] 4.2.[place].2.[place] [phone] [facility] [address] 2020-12-27 2020-12-27 Orders Doctor RONY 1.2.840.114 [id number] Univers 00:00:00 00:00:00 Only Unassigned, DIANA 350.1.13.10 [place]y of [facility] 4.2.7.2.686 Guillermo as [phone] [facility] [address] 2020-12-24 2020-12-24 Hospital [facility] 1.2.840.114 [id number] Univers 09:29:32 23:59:00 Encounter Marta Chavira 350.1.13.10 ity of [place] 4.[place].2.[place] [phone] [facility] [address] 2020-12-24 2020-12-24 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 Jeffery, Rufus Lab Main [facility] 1.2.8 40.114 [id number] Univers 09:28:46 09:43:46 Visit Marta Johnson 350.1.13.10 ity of [place] 4.[place].2.[place] Profess[place] [phone] Ct dical nal [address] [facility] 2020-12-24 2020-12-24 Out[facility] [id number] Univers 08:45:00 08:45:00 MARTA ity [facility] 2020-12-23 2020-12-23 Outpatient R ELIZABETH [facility] [id number] Univers 13:00:00 13:00:00 MARTA gallo [facility] 2020-12-22 2020-12-22 Outpatient R ELIZABETH [facility] [id number] Univers 09:45:00 09:45:00 MARTA gallo [facility] 2020-12-22 2020-12-22 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 Jeffery, Rufus Lab Main [facility] 1.2.8 40.114 [id number] Univers 09:28:20 09:43:20 Visit Marta Johnson 350.1.13.10 it[place] of [place].2.[place].2.[place] [facility] [phone] Me dical nal 353 [facility] 2020-12-22 2020-12-22 Orders Doctor RONY 1.2.840.114 [id number] Univers 00:00:00 00:00:00 Only Unassigned, DIANA 350.1.13.10 [place]y of [place] [facility] 4.2.7.2.686 Guillermo as [phone] [address] 2020-12-20 2020-12-20 Prep For Elizabeth [facility] 1.2.840.114 [id number] Univers 00:00:00 00:00:00 Surgery Marta Flores Health 350.1.13.10 it y of Surgical 4.2.7.2.686 Guillermo as Specialti [phone] Me dical es 198 [facility] 2020-12-16 2020-12-16 Office Leona [facility] 1.2.840.114 [id number] Univers 13:40:52 13:55:52 Visit Arley Dow [facility] 350.1.13.10 it y of Surgical 4.2.7.2.686 Guillermo as Specialti [phone] Ct dical es 198 [facility] 2020-12-16 2020-12-16 Outpatient [facility] [id number] Univers 13:45:00 13:45:00 ARLEY itcarl [facility] 2020-12-16 2020-12-16 Outpatient [facility]ana [facility] [id number] Univers 13:45:00 13:45:00 ARLEY gallo [facility] 2020-11-22 2020-11-22 Outpatient R ELIZABETH [facility] [id number] Univers 16:15:00 16:15:00 MARTA gallo [facility] 2020-11-22 2020-11-22 Office [facility] 1.2.785.828 [id number] Univers 15:17:32 15:56:16 Visit Marta Flores [facility] 350.1.13.10 it y of Surgical 4.2.7.2.686 Guillermo as Specialti [phone] Me dical es 198 [facility] 2020-09-16 2020-09-16 Outpatient [facility] PRIV PRIV [id number] [facility] 11:38:00 11:38:00 _Lara [id number] [facility] 2020-09-14 2020-09-14 Outpatient [facility] PRIV PRIV [id number] [facility] 01:43:00 01:43:00 _Lara [id number] [facility] 2020-09-14 2020-09-14 [facility] [id number] [facility] 00:00:00 00:00:00 [facility] MD wai: _[address], [address], [place] [address] , Ph. 2020-09-14 2020-09-[address] [facility] PRIV [id number] [id number] 00:00:00 00:00:00 alycia Tootie [id number] [facility] [id number] 2020-08-31 2020-08-31 Office Leona [facility] 1.2.840.114 [id number] Univers 09:45:50 10:00:50 Visit Arley Dow [facility] 350.1.13.10 it y of Surgical 4.2.7.2.686 Guillermo as Specialti [phone] Me dical es 198 [facility] 2020-08-31 2020-08-31 Outpatient Yohana DELGADILLO [facility] [id number] Univers 10:00:00 10:00:00 ARLEY cleo of [facility] 2020-08-16 2020-08-16 Office [facility] 1.2.972.719 [id number] Univers 13:36:09 14:33:13 Visit Marta Buckley 350.1.13.10 it y of Surgical 4.2.7.2.686 Guillermo as Specialti [phone] Ct dical es 198 [facility] 2020-08-16 2020-08-16 Outpatient [facility] [id number] Univers 14:00:00 14:00:00 MARTA gallo [facility] 2020-08-16 2020-08-16 Telephone [facility] 1.2.840.114 [id number] Univers 00:00:00 00:00:00 Marta Chavira 350.1.13.10 i [id number] [id number] [place] dical nal 198 [facility] 2020-08-13 2020-08-13 Telephone [facility] 1.2.840.114 [id number] Univers 00:00:00 00:00:00 Marta Buckley [id number] it y of Surgical [id number] [place] as Specialti [id number] Ct dical es 198 [facility] 2020-08-12 2020-08-12 Emergency [facility] 1.2.840.114 [id number] Univers 16:16:00 18:33:00 Adwoa Fan [id number] [id number] [phone] [facility] [address] [place] 2020-08-12 2020-08-12 Orders Doctor RONY [id number] [id number] Univers 00:00:00 00:00:00 Only Unassigned, DIANA [id number] [place]y of [place] [facility] [id number] Guillermo as [phone] [facility] [address] [place] 2020-06-02 2020-06-02 Office [facility] [id number] Univers 13:10:39 13:46:45 Visit Marta Buckley [id number] it y of Surgical [id number] [place] as Specialti [phone] Ct dical es 198 [facility] 2020-06-02 2020-06-02 [facility] [id number] Univers 13:30:00 13:30:00 MARTA gallo [facility] 2020-06-01 2020-06-01 [facility] [id number] Univers 14:21:09 23:59:00 MARTA gallo [facility] 2020-06-01 2020-06-01 [facility] 1.2.840.114 [id number] Univers 14:21:09 23:59:00 Encounter Marta Chavira [id number] it[place] [id number] [place] [facility] [phone] [facility] [address]04 [place] 2020-05-07 2020-05-07 Office [facility] [id number] Univers 08:18:47 09:19:17 Visit Marta Buckley [id number] it y of Surgical [id number] [place] as Specialti [phone] Ct dical es 198 [facility] 2020-05-07 2020-05-07 [facility] [id number] Univers 08:30:00 08:30:00 MARTA gallo [facility] 2020-05-07 2020-05-07 Telephone [facility] 1.2.840.114 [id number] Univers 00:00:00 00:00:00 [facility] [id number] it y of Surgical [id number] Guillermo as Specialti [phone] Me dical es 198 [facility] 2020-03-25 2020-03-25 [facility]phone [facility] [id number] Univers 00:00:00 00:00:00 Arley S [facility] [id number] it y of Surgical [id number] Guillermo as Specialti [phone] Ct dical es 198 [facility] 2020-03-15 2020-03-15 Outpatient R ELIZABETH [facility] [id number] Univers 16:00:00 16:00:00 MARTA gallo [facility] 2020-03-15 2020-03-15 Office Arley Delgadillo [facility] 1.2.840.114 [id number] Univers 15:44:53 15:59:53 Visit Marta [facility] [id number] ity of Surgical [id number] Guillermo as Specialti [phone] Ct dical es 198 [facility] 2020-02-26 2020-02-26 Hospital Elizabeth [facility] 1.2.840.114 [id number] Univers 14:09:46 23:59:00 Encounter [facility] [id number] ity of Surgical [id number] Guillermo as Specialti [phone] Ct dical es 809 [facility] 2020-02-26 2020-02-26 Office Elizabeth [facility] 1.2.106.493 [id number] Univers 13:13:37 15:25:31 Visit Marta Flores [facility] [id number] it y of Surgical [id number] Guillermo as Specialti [phone] Ct dicmi es 198 [facility] 2020-02-26 2020-02-26 Outpatient R ELIZABETH [facility] [id number] Univers 13:30:00 13:30:00 MARTA gallo [facility] 2020-02-26 2020-02-26 Orders Doctor URIBE 1.2.840.114 [id number] Univers 00:00:00 00:00:00 Only Unassigned, DIANA 350.1.13.10 ity of [facility] 4.2.7.2.686 Guillermo as [phone] [address] 2019-08-13 2019-08-13 Outpatient R ELIZABETH [facility] [id number] Univers 13:40:00 13:40:00 MARTA gallo [facility] 2019-07-17 2019-08-12 Ancillary Yoselin Francisco [facility] 1.2.840 .114 [id number] Univers 14:12:49 16:34:23 Visit Marta Johnson 350.1.13.10 ity [place] [phone] Ct dical nal 179 [facility] 2019-07-17 2019-08-12 Ancillary Nolan [facility] 1.2.482.004 [id number] 14:12:49 16:34:23 Visit Yoselin Chavira 350.1.13.10 [place] 4.2.7.2.686 Professio [phone] [facility] 179 [facility] 2019-07-29 2019-07-29 Outpatient R ELIZABETH [facility] [id number] Univers 13:00:00 13:00:00 MARTA ity [facility] 2019-07-23 2019-07-23 Ancillary Yoselin Francisco [facility] 1.2.840 .114 [id number] Univers 13:39:15 14:19:15 Visit Marta Johnson 350.1.13.10 [place] [phone] Ct dical [facility] 179 [facility] 2019-07-21 2019-07-21 Office Elizabeth [facility] 1.2.015.227 [id number] Univers 15:36:27 16:19:42 Visit Marta Flores [facility] [id number] it y of Surgical 4.2.7.2.686 Guillermo as Specialti [phone] Ct dical 198 [facility] 2019-07-15 2019-07-15 Ancillary Yoselin Francisco [facility] 1.2.840 .114 [id number] Univers 14:12:07 14:52:07 Visit Marta Johnson 350.1.13.10 [place] [phone] Ct dical [facility] 179 [facility] 2019-07-10 2019-07-10 Ancillary Yoselin Francisco [facility] 1.2.840 .114 [id number] Univers 13:01:35 13:41:35 Visit Marta Johnson 350.1.13.10 [place] [phone] Ct dical nal 179 [facility] 2019-07-08 2019-07-08 Ancillary Jose Francisco [facility] 1.2.840. 114 [id number] Univers 15:31:30 16:33:27 Visit Marta Johnson 350.1.13.10 [place] [phone] Ct dical nal 179 [facility] 2019-07-03 2019-07-03 Ancillary Yoselin Francisco [facility] 1.2.[id number] [facility] 13:04:32 13:49:32 Visit Marta Johnson 350.1.13.10 [place] [phone] Ct dical nal 179 [facility] 2019-06-19 2019-06-19 Ancillary Yoselin Francisco [facility] 1.2.[id number] [facility] 13:53:57 14:38:57 Visit Marta Johnson 350.1.13.10 [place] [phone] Ct dicmi nal 179 [facility] Results Test Description Test Time Test Comments Results Result [facility] e Comments - XR FLUORO FOR 2023-03-07 SPINE INJ 15:23:[facility] 1935 Sex: F Patient Name: KD DIGGS Unit No: [id number] EXAMS: CPT CODE: [id number] XR FLUORO FOR SPINE INJ 53491 LUMBAR EPIRADICULAR INJECTION PREOPERATIVE DIAGNOSIS: Lumbar Radiculitis [...] Technologist: YASIR SPICER ARRT Transcribed D/ (1523) tROHAN.[facility] [place] NAME: KD DIGGS [address] [facility] PHYS: Suman Santos MD [place], [place] [address] : 1935 AGE: 87 SEX: F LOC: MAME PHONE #: [phone] EXAM DATE: 03/07/2023 STATUS: REG [facility] FAX #: [phone] RAD #: D/C DT PAGE 1 Signed Report Patient Name: KD DIGGS Unit No: [id number] EXAMS: CPT CODE: [id number] XR FLUORO FOR SPINE INJ [id number] (Continued) Orig Print D/T: S: 03/07/2023 (1527) [facility] [place] NAME: KD DIGGS [address] [facility] PHYS: Suman Santos MD [place], [place] [address] : 1935 AGE: 87 SEX: F LOC: MAME PHONE #: [phone] EXAM DATE: 03/07/2023 STATUS: REG [facility] FAX #: [phone] RAD #: D/C DT PAGE 2 Signed Report GLUBED 2023-03-07 14:14:00 Test Item Value Reference Range Interpretation Comme nts GLUBED (test code = GLUBED) 108 mg/dL 60-99 H The normal fasting blood glucose range for a non-diabe ticadult is 60-99 mg/dL. Two hours after meals, normal blood glucose levels should beless than 140 mg/dL.Please no te new normal range. [id number] 14:32:00 Test Item Value Reference Range Interpretation Comments GLUBED (test code = GLUBED) 97 mg/dL 60-125 N - XR FLUORO FOR SPINE [id number] 09:07:00 [facility] 1935 Sex: F PatientName: KD DIGGS Unit No: [id number] EXAMS: CPT CODE: [id number] XR FLUORO FOR SPINE INJ [id number] LUMBAR EPIRADICULAR INJECTION PREOPERATIVE DIAGNOSIS: Lumbar Radiculitis POSTOPERATIVE DIAGNOSIS: Sameas above PROCEDURES PERFORMED: Fluoroscopically guided needle localization of the bilateral L4, L5, S1 spinal nerves with transforaminal epidurograms and epidural injection of local anesthetic and steroid. FINDINGS: Preinjection VAS 8/10. Postinjection VAS 0/10. Steroid response pending follow-up. ESTIMATED BLOOD LOSS: Minimal ANESTHESIA: TIVA COMPLICATIONS: None DETAILS OF PROCEDURE: After obtainingstable vital signs, informed consent and IV access, with no contraindications, the patient was takento the operating room and placed in a [...] Technologist: RENÉ DUMONT MRI Transcribed D/ (0907) [facility] [place] NAME: KD DIGGS [address] [facility] PHYS: Suman Santos MD [place], [place] [address] : 1935 AGE: 87 SEX: F LOC: MAME PHONE #: [phone] EXAM DATE: 01/08/2023 STATUS: REG [facility] FAX #: [phone] RAD #: D/C DT PAGE 1 Signed Report Patient Name: KD DIGGS Unit No: [id number] EXAMS: CPT CODE: [id number] XR FLUORO FOR SPINE INJ [id number] (Continued) Orig Print D/T: S: 01/08/2023 (0910) [facility] [place] NAME: KD DIGGS[address] [facility] PHYS: Suman Santos MD [place], [place] [address] : 1935 AGE: 87 SEX: F LOC: MAME PHONE #: [phone] EXAM DATE: 01/08/2023 STATUS: REG [facility] FAX #: [phone] RAD #: D/C DT PAGE 2 Signed [id number] 08:52:00 Test Item Value Reference Range Interpretation Comments GLUBED (test code = GLUBED) 111 mg/dL 60-125 N
[2023-04-14] MEDS ORDERED: LORAZEPAM 1 MG TABLET ONE (17:08)
[2023-04-14] MEDS ORDERED: HYDROMORPHONE HCL 0.5 MG/0.5 ML INJ ONE (17:08)
--- NOTE | 2023-04-14 17:30 | ER ---
Nurse's Notes [facility] Name: Yady Diggs Age: 87 yrs Sex: Female : 1935 Arrival Date: 04/14/2023 Time: 16:22 Bed 7 Private MD: Diagnosis: Chronic pain, not elsewhere classified-bilateral hips, atraumatic Presentation: 04/14 16:29 Chief complaint: Patient states: R low back pain that radiates down R leg x 1.5 years, ss has gotten worse in the past 2 weeks. Pt has been seen by her PCP recently and was given Tylenol #3 for pain. Pt took a dose just prior to being transported to ER. Coronavirus screen: Client denies travel out of the [place] in the last 14 days. Ebola Screen: Patient denies exposure to infectious person. Patient denies travel to an Ebola-affected area in the 21 days before illness onset. Initial Sepsis Screen: Does the patient meet any 2 criteria? No. Patient's initial sepsis screen is negative. Does the patient have a suspected source of infection? No. Patient's initial sepsis screen is negative. Risk Assessment: Do you want to hurt yourself or someone else? Patient reports no desire to harm self or others. Onset of symptoms is unknown. 16:29 Method Of Arrival: EMS: [facility] ss 16:29 Acuity: NILAY 3 ss Historical: - Allergies: 16:32 adhesive tape; ss 16:32 Iodine; ss 16:32 Morphine; ss - Home Meds: 17:06 carvedilol 6.25 mg oral tablet 2 times per day [Active]; levothyroxine 25 mcg capsule ph daily [Active]; atorvastatin 20 mg oral tablet daily [Active]; gabapentin 600 mg oral tablet 1 tab 3 times per day [Active]; Advair Diskus 250-50 mcg/dose Inhl Blister, With Inhalation Device 1 inhalation 2 times per day [Active]; omeprazole 20 mg Oral capsule,delayed release (e.c.) daily [Active]; cephalexin 250 mg Oral tablet daily [Active]; dorzolamide 2 % ophthalmic (eye) drops 1 drop twice a day [Active]; amitriptyline 10 mg Oral tablet 1 tab every day at bedtime [Active]; trazodone 50 mg Oral tablet 0.5 tabs every day at bedtime [Active]; All Day Allergy (cetirizine) 10 mg oral capsule daily [Active]; latanoprost 0.005 % ophthalmic (eye) drops 1 drop every evening [Active]; primidone 50 mg Oral tablet 0.5 tab every day at bedtime [Active]; hydralazine 10 mg Oral tablet 2 times per day [Active]; - PMHx: 16:32 diabetes mellitus; GERD; Glaucoma; High Cholesterol; Hypertension; Hypothyroidism; ss neuropathy; - PSHx: 16:32 Appendectomy; section; Cholecystectomy; hysterectomy; Tonsillectomy; ss - Immunization history:: Adult Immunizations unknown. - Social history:: Smoking status: Patient denies any tobacco usage or history of. Screenin:04 [facility] ED Fall Risk Assessment (Adult) History of falling in the last 3 months, ph including since admission No falls in past 3 months (0 pts) Confusion or Disorientation No (0 pts) Intoxicated or Sedated No (0 pts) Impaired Gait Yes (1 pt) Mobility Assist Device Used Yes (1 pt) Altered Elimination Yes (1 pt) Score/Fall Risk Level 3 or more points = High Risk Oriented to surroundings, Maintained a safe environment, Hourly rounding (assess needs \T\ fall precautionary measures) done, Used ambulatory aids as needed (educated on \T\ assisted with). Abuse screen: Denies threats or abuse. Denies injuries from another. Nutritional screening: No deficits noted. Tuberculosis screening: No symptoms or risk factors identified. Assessment: 17:04 General: Appears in no apparent distress. Behavior is cooperative, appropriate for age. ph Pain: Complains of pain in left hip and right hip Pain radiates to right leg and left leg. Neuro: Level of Consciousness is awake, alert, obeys commands, Oriented to person, place, time, situation. Cardiovascular: Capillary refill < 3 seconds in bilateral fingers Patient's skin is warm and dry. Respiratory: Airway is patent Respiratory effort is even, unlabored, Respiratory pattern is regular, symmetrical. Derm: Skin is pink, warm \T\ dry. Vital Signs: 16:29 BP 104 / 81; Pulse 113; Resp 18; Temp 98.6(TE); Pulse Ox 97% on R/A; Pain 10/10; ss 17:05 BP 121 / 58; Pulse 87; Resp 18; Pulse Ox 100% on R/A; ph 17:55 BP 124 / 52; Pulse 86; Resp 18; Temp 97.5; Pulse Ox 99% on R/A; ph 16:29 Pain Scale: Adult ED Course: 16:27 Patient arrived in ED. eb 16:28 Francesca G[facility]C [facility] snw 16:28 Pankaj Villalobos MD is Attending Physician. snw 16:32 Triage completed. ss 16:32 Arm band placed on right wrist. ss 17:03 Jaylyn Flores, RN is Primary Nurse. ph 17:05 Patient has correct armband on for positive identification. Bed in low position. Call ph light in reach. Side rails up X2. Pulse ox on. NIBP on. Door closed. Noise minimized. Warm blanket given. 17:05 Maintain EMS IV. Dressing intact. Good blood return noted. Site clean \T\ dry. Gauge \T\ ph site: 20 RAC. 18:09 No provider procedures requiring assistance completed. IV discontinued, intact, ph bleeding controlled, No redness/swelling at site. Pressure dressing applied. Administered Medications: 17:03 Drug: LORazepam PO 1 mg PO once; please give sublingually Route: PO; ph 18:09 Follow up: Response: No adverse reaction; Pain is decreased ph 17:03 Drug: HYDROmorphone IVP 0.5 mg IVP once Route: IVP; Site: right antecubital; ph 18:09 Follow up: Response: No adverse reaction; Pain is decreased ph Medication: 17:05 VIS not applicable for this client. ph Outcome: 17:29 Discharge ordered by . snw 18:09 Discharged to home via wheelchair, with significant other, ph 18:09 Condition: good 18:09 Discharge instructions given to patient, significant other, Instructed on discharge instructions, follow up and referral plans. Demonstrated understanding of instructions, follow-up care, 18:10 Patient left the ED. ph Signatures: Francesca Gómez FNP-C FNP-Kinsey Paz, RN RN Jaylyn Flores RN RN Scarlett Corrigan
--- NOTE | 2023-04-14 17:30 | EDPHYS ---
Physician Documentation [facility] Name: Yady Diggs Age: 87 yrs Sex: Female : 1935 Arrival Date: 04/14/2023 Time: 16:22 Bed 7 Private MD: ED Physician Pankaj Villalobos HPI: 04/14 16:45 This 87 yrs old Female presents to ER via EMS with complaints of Back Pain, snw Leg Pain. 16:45 The symptoms are located in the bilateral hips with radiation down bilateral legs. as snw noted. Severity of symptoms: At their worst the symptoms were moderate, severe, in the emergency department the symptoms are unchanged. The patient has experienced similar episodes in the past, chronically. Sees Dr. Pena. Historical: - Allergies: 16:32 adhesive tape; ss 16:32 Iodine; ss 16:32 Morphine; ss - Home Meds: 17:06 carvedilol 6.25 mg oral tablet 2 times per day [Active]; levothyroxine 25 mcg capsule ph daily [Active]; atorvastatin 20 mg oral tablet daily [Active]; gabapentin 600 mg oral tablet 1 tab 3 times per day [Active]; Advair Diskus 250-50 mcg/dose Inhl Blister, With Inhalation Device 1 inhalation 2 times per day [Active]; omeprazole 20 mg Oral capsule,delayed release (e.c.) daily [Active]; cephalexin 250 mg Oral tablet daily [Active]; dorzolamide 2 % ophthalmic (eye) drops 1 drop twice a day [Active]; amitriptyline 10 mg Oral tablet 1 tab every day at bedtime [Active]; trazodone 50 mg Oral tablet 0.5 tabs every day at bedtime [Active]; All Day Allergy (cetirizine) 10 mg oral capsule daily [Active]; latanoprost 0.005 % ophthalmic (eye) drops 1 drop every evening [Active]; primidone 50 mg Oral tablet 0.5 tab every day at bedtime [Active]; hydralazine 10 mg Oral tablet 2 times per day [Active]; - PMHx: 16:32 diabetes mellitus; GERD; Glaucoma; High Cholesterol; Hypertension; Hypothyroidism; ss neuropathy; - PSHx: 16:32 Appendectomy; section; Cholecystectomy; hysterectomy; Tonsillectomy; ss - Immunization history:: Adult Immunizations unknown. - Social history:: Smoking status: Patient denies any tobacco usage or history of. ROS: 16:43 Constitutional: Negative for fever, chills, and weight loss, Eyes: Negative for injury, snw pain, redness, and discharge, ENT: Negative for injury, pain, and discharge, Neck: Negative for injury, pain, and swelling, Cardiovascular: Negative for chest pain, palpitations, and edema, Respiratory: Negative for shortness of breath, cough, wheezing, and pleuritic chest pain, Abdomen/GI: Negative for abdominal pain, nausea, vomiting, diarrhea, and constipation, Back: Negative for injury and pain, : Negative for injury, bleeding, discharge, and swelling, Skin: Negative for injury, rash, and discoloration, Neuro: Negative for headache, weakness, numbness, tingling, and seizure, Psych: Negative for depression, anxiety, suicide ideation, homicidal ideation, and hallucinations, 16:43 MS/extremity: Positive for bilateral hip pain, denies trauma, Exam: 16:42 Head/Face: Normocephalic, atraumatic. Eyes: Pupils equal round and reactive to light, snw extra-ocular motions intact. Lids and lashes normal. Conjunctiva and sclera are non-icteric and not injected. Cornea within normal limits. Periorbital areas with no swelling, redness, or edema. 16:42 Neck: Trachea midline, no thyromegaly or masses palpated, and no cervical lymphadenopathy. Supple, full range of motion without nuchal rigidity, or vertebral point tenderness. No Meningismus. Chest/axilla: Normal chest wall appearance and motion. Nontender with no deformity. No lesions are appreciated. Cardiovascular: tachycardic rate and rhythm with a normal S1 and S2. No gallops, murmurs, or rubs. Normal PMI, no JVD. No pulse deficits. Respiratory: Lungs have equal breath sounds bilaterally, clear to auscultation and percussion. No rales, rhonchi or wheezes noted. No increased work of breathing, no retractions or nasal flaring. Abdomen/GI: Soft, non-tender, with normal bowel sounds. No distension or tympany. No guarding or rebound. No evidence of tenderness throughout. Back: No spinal tenderness. No costovertebral tenderness. Full range of motion. Neuro: Awake and alert, GCS 15, oriented to person, place, time, and situation. Cranial nerves II-XII grossly intact. Motor strength 5/5 in all extremities. Sensory grossly intact. Cerebellar exam normal. Normal gait. Psych: Awake, alert, with orientation to person, place and time. Behavior, mood, and affect are within normal limits. 16:42 Constitutional: The patient appears alert, awake, anxious, uncomfortable, 16:42 ENT: Mouth: Oral mucosa: dry, 16:42 Musculoskeletal/extremity: Extremities: grossly normal except: bilateral hips with hypersensitivity, 16:42 Neuro: Orientation: is normal, Mentation: is normal, Memory: is normal, seizure activity, is not displayed by the patient, Vital Signs: 16:29 BP 104 / 81; Pulse 113; Resp 18; Temp 98.6(TE); Pulse Ox 97% on R/A; Pain 10/10; ss 17:05 BP 121 / 58; Pulse 87; Resp 18; Pulse Ox 100% on R/A; ph 17:55 BP 124 / 52; Pulse 86; Resp 18; Temp 97.5; Pulse Ox 99% on R/A; ph 16:29 Pain Scale: Adult ss MDM: 16:31 Patient medically screened. snw 16:44 Differential diagnosis: Osteoarthritis chronic pain, trauma. Data reviewed: vital snw signs, nurses notes. Counseling: I had a detailed discussion with the patient and/or guardian regarding the historical points, exam findings, and any diagnostic results supporting the discharge/admit diagnosis. Administered Medications: 17:03 Drug: LORazepam PO 1 mg PO once; please give sublingually Route: PO; ph 18:09 Follow up: Response: No adverse reaction; Pain is decreased ph 17:03 Drug: HYDROmorphone IVP 0.5 mg IVP once Route: IVP; Site: right antecubital; ph 18:09 Follow up: Response: No adverse reaction; Pain is decreased ph Disposition Summary: 04/14/23 17:29 Discharge Ordered Notes: Location: Home snw Condition: Stable snw Diagnosis - Chronic pain, not elsewhere classified - bilateral hips, atraumatic snw Followup: snw - With: Private Physician - When: 2 - 3 days - Reason: Recheck today's complaints, Continuance of care, Re-evaluation by your physician Discharge Instructions: - Discharge Summary Sheet snw - Chronic Pain, Adult snw - Neuropathic Pain snw - Sciatica snw Forms: - Medication Reconciliation Form snw - Thank You Letter snw - Antibiotic Education snw - Prescription Opioid Use snw - Patient Portal Instructions snw - Leadership Thank You Letter snw Addendum: 04/17/2023 07:22 I was immediately available for consultation during this patient's visit. I did not e c2 personally see the patient or guide the patient's care.. Signatures: Francesca Gómez, ERIKA-C LEAF [employer] PICKER-Csnw Kinsey Cortez, RN RN ss Jaylyn Flores RN RN Pankaj Villalobos MD MD ec2
[2023-04-14 18:19] VITALS: BP 124/52; TEMP 97.5; O2SAT 99
== END 2023-04-14 18:10 | disposition home or self-care (01) ==
LOC: ER 16:22
DX: G89.29 Other chronic pain (principal); M54.50 Low back pain, unspecified; Z88.5 Allergy status to narcotic agent; M25.552 Pain in left hip; M25.551 Pain in right hip
CPT/HCPCS: 96374; 99284; J1170

== ENCOUNTER 2023-04-29 12:48 | Emergency (ER) | payer OTHER, BC ==
--- OUTSIDE RECORDS SUMMARY | 2023-04-29 12:58 | XMS REPORT | Continuity of Care Document ---
:1935 Author Organization [facility] t Address [address] [place] [address] Care Team Providers Name Role Phone Becky VARGAS, Tunde Tripathi Primary Care Physician MARTA JOHNSON Attending Clinician Unavailable MARTA JOHNSON Attending Clinician Unavailable TENZIN CROWLEY Attending Clinician Unavailable RABIA_Gregg_Yury_ALANIS Attending Clinician Unavailable Marta Johnson MD Attending Clinician Jovany Varela MD Attending Clinician Suman Harris Attending Clinician Unavailable Arley Ferrari Attending Clinician ARLEY DELGADILLO Attending Clinician Unavailable Doctor Unassigned, [place] Attending Clinician Unavailable GAVIN VALENTIN Attending Clinician Unavailable Lucia Laws PT Attending Clinician Unavailable MARY_Pamela Attending Clinician Unavailable 1, [facility] Attending Clinician Unavailable Prashanth Stevenson MD Attending Clinician PRASHANTH STEVENSON Attending Clinician Unavailable Only, Adc Test Attending Clinician Unavailable Etienne Abdi MD Attending Clinician ETIENNE ABDI Attending Clinician Unavailable Nolan POOLE, Yoselin Rowan Attending Clinician Unavailable Korey Treadwell PT, Kimberly Attending Clinician Unavailable Joshua PT, Maki Cotton Attending Clinician Unavailable Jay PT, Sandra Angel Attending Clinician Unavailable Brennon PT, Viki Flores Attending Clinician Unavailable Hola RN, Jacquie Attending Clinician Unavailable Johnny RT, Val C Attending Clinician Unavailable Grant Haskins MD Attending Clinician Colby Monson MD Attending Clinician Rodrigo TREADWELL, Светлана Mazariegos Attending Clinician GO SINGER Attending Clinician Unavailable Nurse, Adc Pob Immunization Attending Clinician Unavailable Go Singer DO Attending Clinician Pob, [facility] Lab Main Attending Clinician Unavailable Tootie Cee Attending Clinician [phone] TIN ASSORTER, Adwoa Attending Clinician Nolan POOLE, Jose F Attending Clinician Unavailable MARTA JOHNSON Admitting Clinician Unavailable RABIA_Gregg_Yury_NP Admitting Clinician Unavailable Suman Harris F Admitting Clinician Unavailable KNOW, DOES_NOT Admitting Clinician Unavailable MARY_CHANTALE_Lara Admitting Clinician Unavailable Colby Monson MD Admitting Clinician Marta Johnson MD Admitting Clinician Payers Payer Name Policy Type Policy Number Effective Date Expiration Date S preet MEDICARE PART A AND [id number] 2001 B 00:00:00 [facility] [id number] 2017 00:00:00 MEDICARE PART A \T\ [id number] 2001 B 00:00:00 [employer] TRADITIONAL [id number] 2017 00:00:00 [place] [id number] 2001 [place] [employer] 00:[place] [id number] 2017 (MEDICARE 00:00:00 SUPPLEMENT) Problems Condition Condition Condition Status Onset Resolution Last Treating Co mments Source Name Details Category Date Date Treatment Clinician Date Low back Low back Disease Active 2022-06 Unive rs pain, pain, 06-28 ity of unspecif[place] back Medical pain pain Branch laterality laterality , , unspecifie unspecifie d d chronicity chronicity , , unspecifie unspecifie d whether d whether sciatica sciatica present present Radiculopa Radiculopa Disease Active 2022-06 U jamey thy, thy, 06-28 ity of unspecifie [place]specifie [place] spinal d spinal 00 Medica l region region Branch Gait Gait Disease Active 2021-06 Univers instabilit instabilit 06-04 it y of y y 00:00: [place] [facility] Poor Poor Disease Active 2021-06 Univers balance balance 06-04 ity of 00:00: [place] [facility] Generalize Generalize Disease Active 2021-06 U jamey d weakness d weakness 06-04 it y of 00:00: [place] [facility] Vomiting Vomiting Disease Active 2020-06 Unive rs 0 ity of 00:00: [place] 00 Medical Branch Primary Primary Disease Active Overview: Univ ers osteoarthr osteoarthr 12-20 Formattin ity of itis of itis of 00:00: g of this [place] right right 00 note Medical shoulder shoulder might be Bran ch different from the original. Added automatic ally from request for surgery [id number] Allergies, Adverse Reactions, Alerts Allergy Allergy Status Severity Reaction(s) Onset Inactive Treating Comm ents Source Name Type Date Date Clinician iodine DA Active U rash, 2022-06 [facility] itching, 0 [place] hives-CONTRA 00:00: Orth ope [facility] morphine DA Active U headache, 2022-06 [facility] nausea 004 00:00: Orthope 00 [facility] adhesive DA Active SV TEARS SKIN 2022-06 [facility] tape 004 00:00: [facility]ope 00 [facility] iodine DA Active U rash, [facility] itching, 01-08 hives 00:00: Orthope 00 [facility] morphine DA Active U headache, [facility] nausea 01-08 00:00: Orthope 00 [facility] latex DA Active SV redness, [facility] blister 8- [place] 00:00: [facility] 00 [facility] morphine DA Active U UNKNOWN [facility] 8-04 [place] 00:00: [facility] 00 [facility] Morphine Propensi Active Nausea Only U nivers ty to 2-07 ity of adverse 00:00: [place] reaction 00 Medical s Branch MORPHINE DRUG Active N/V Univers INGREDI 2-07 ity of 00:00: [place] 00 Medical Branch Morphine Allergy Active Nausea [facility] to Medical substanc e Social History Social Habit Start Date Stop Date Quantity Comments Source History of tobacco Current smoker Un iversity of use [facility] Alcohol intake 2023-04-05 2023-04-05 Current drinker Unive rsity of 00:00:00 00:00:00 of alcohol [place] [facility] (finding) [facility] History of Social 2023-04-05 2023-04-05 Univers ity of function 00:00:00 00:00:00 [facility] Tobacco use and 2022-11-17 2022-11-17 Smokeless Universit y of exposure 00:00:00 00:00:00 [facility] Tobacco Comment 2022-11-17 2022-11-17 pt quit 50 yrs Unive rsity of 00:00:00 00:00:00 ago [facility] Exposure to 2022-03-10 2022-03-20 Not sure University of SARS-CoV-2 (event) 00:00:00 10:49:00 [facility] Sex [birth year] [facility] 00[facility]00 [facility] Smoking Status Start Date Stop Date Source Tobacco smoking [facility] consumption unknown Ex-smoker 2022-11-17 00:00:00 2022-11-17 [facility] o [facility] [place] 00:00:00 Medical Branch Medications Ordered Filled Start Stop Current Ordering Indication Dosage Frequency Signature Comments Components Source Medication Medication Date Date Medication? Clinician (SIG) Name Name HYDROcodone 2022-06 No 1{tbl} 1 tablet, Univers -acetaminop 1-26 11-26 Oral, ity of hen (NORCO) 02:15: 01:31 ONCE, 1 [place] 10-325 mg 00 :00 dose, On Medica l tablet 1 Sat Branch tablet 11/25/23 at 2014, FLORINDA lidocaine 2022-063- No 1{patch 1 Patch, Univers (LIDODERM) 06-29 } Topical, ity of 5 % (700 02:15: 01:32 ONCE, 1 [place] mg/patch) 00 :00 dose, On Medica l patch 1 Sat Branch Patch 04/28/23 at 2014, FLORINDA methylPREDN 2022-06 Yes [id number] 84mg Take 21 Univers ISolone 1-02 tablets by ity of (MEDROL, 00:00: mouth [place] KELLIE,) 4 mg 00 SEE-INSTRU Med ical tablets CTIONS. Branch follow package directions methylPREDN 2022-06 Yes [id number] 84mg Take 21 Univers ISolone 1-02 tablets by ity of (MEDROL, 00:00: mouth [place] KELLIE,) 4 mg 00 SEE-INSTRU Med ical tablets CTIONS. Branch follow package directions methylPREDN 2022-06 Yes [id number] 84mg Take 21 Univers ISolone 1-02 tablets by ity of (MEDROL, 00:00: mouth [place] KELLIE,) 4 mg 00 SEE-INSTRU Med ical tablets CTIONS. Branch follow package directions methylPREDN 2022-06 Yes [id number] 84mg Take 21 Univers ISolone 1-02 tablets by ity of (MEDROL, 00:00: mouth [place] KELLIE,) 4 mg 00 SEE-INSTRU Med ical tablets CTIONS. Branch follow package directions triamcinolo 0 2022- No [id number] 40mg Univers ne 11-17 9109 ity of acetonide 17:45: 17:01 [place] (KENALOG) 00 :00 Medical injection Branch 40 mg triamcinolo 2022-0 2022- No [id number] 40mg 40 mg, Univers ne 11-17 9109 Intramuscu ity of acetonide 17:45: 17:01 lar, ONCE, [place] (KE[place]LOG) 00 :00 1 dose, On Medi curly injection Fri Branch 40 mg 11/17/22 at 1245, Routine triamcinolo 2022-0 2022- No [id number] 40mg Univers ne 11-17 9109 ity of acetonide 17:45: 17:01 [place] (KENALOG) 00 :00 Medical injection Branch 40 mg triamcinolo 2022- No [id number] 40mg 40 mg, Univers ne 11-17- 9109 Intramuscu ity of acetonide 17:45: 17:01 lar, ONCE, [place] (KENALOG) 00 :00 1 dose, On Medi curly injection Fri Branch 40 mg 11/17/22 at 1245, Routine triamcinolo 2022- No [id number] 40mg Un zia ne 11-17 ity of acetonide 17:15: 16:22 [place] (KENALOG) 00 :00 Medical injection Branch 40 mg triamcinolo 2022- No [id number] 40mg 40 mg, Univers ne 11-17 Intramuscu ity of acetonide 17:15: 16:22 lar, ONCE, [place] (KENALOG) 00 :00 1 dose, On Medi curly injection Fri Branch 40 mg 11/17/22 at 1215, Routine triamcinolo 2022- No [id number] 40mg Un zia ne 11-17 ity of acetonide 17:15: 16:22 [place] (KENALOG) 00 :00 Medical injection Branch 40 mg triamcinolo 2022- No [id number] 40mg 40 mg, Univers ne 11-17 Intramuscu ity of acetonide 17:15: 16:22 lar, ONCE, [place] (KENALOG) 00 :00 1 dose, On Medi curly injection Fri Branch 40 mg 11/17/22 at 1215, Routine triamcinolo 2021-06- No [id number] 40mg Univers ne 0-18 10-18 9100 ity of acetonide 19:30: 18:25 [place] (KENALOG) 00 :00 Medical injection Branch 40 mg triamcinolo 2021-06- No [id number] 80mg Univers ne 0-18 10-18 9100 ity of acetonide 19:30: 18:27 [place] (KENALOG) 00 :00 Medical injection Branch 80 mg triamcinolo 2021-06- No [id number] 80mg 80 mg, Univers ne 0-18 10-18 9100 Intramuscu ity of acetonide 19:30: 18:27 lar, ONCE, [place] (KENALOG) 00 :00 1 dose, On Medi curly injection Tue Branch 80 mg 03/21/22 at 1430, Routine triamcinolo 2021-06- No [id number] 40mg 40 mg, Univers ne 003-21 9100 Intramuscu ity of acetonide 19:30: 18:25 [...] inhalation disk Cranberry 2020-06 Yes Take by [place] rs Extract 200 0-03 mouth. ity of mg Cap 13:23: [address] omeprazole 2020-06 Yes 20mg Take 20 mg U nivers 20 mg 0-03 by mouth ity of capsule 13:23: daily. [address] brimonidine 2020-06 Yes brimonidin Univers 0.2 % 0-03 e 0.2 % ity of ophthalmic 13:23: [place] drops [place] solution [address] [place] [address] latanoprost 2020-06 Yes latanopros Univers , PF, 0.005 0-03 t 0.005 % ity of % Drop 13:23: eye drops [address] fluticasone 2020-06 Yes 1{puff} Inhale 1 Univers -salmeterol 0-03 Puff once ity of (ADVAIR 13:23: daily as [place] DISKUS) 04 needed. Medical 250-50 Branch mcg/dose inhalation disk Cranberry 2020-06 Yes Take by [place] rs Extract 200 0-03 mouth. ity of mg Cap 13:23: [address] omeprazole 2020-06 Yes 20mg Take 20 mg U nivers 20 mg 0-03 by mouth ity of capsule 13:23: daily. [address] brimonidine 2020-06 Yes brimonidin Univers 0.2 % 0-03 e 0.2 % ity of ophthalmic 13:23: [place] drops [place] [address] [place] [address] latanoprost 2020-06 Yes latanopros Univers , PF, 0.005 0-03 t 0.005 % ity of % Drop 13:23: eye drops [address] fluticasone 2020-06 Yes 1{puff} Inhale 1 Univers -salmeterol 0-03 Puff once ity of (ADVAIR 13:23: daily as [place] DISKUS) 04 needed. [facility] 250-50 Branch mcg/dose inhalation disk Cranberry 2020-06 Yes Take by [place]bling[place] rs Extract 200 0-03 mouth. ity of mg Cap 13:23: [address] omeprazole 2020-06 Yes 20mg Take 20 mg U nivers 20 mg 0-03 by mouth ity of capsule 13:23: daily. [address] brimonidine 2020-06 Yes brimonidin Univers 0.2 % 0-03 e 0.2 % ity of ophthalmic 13:23: eye drops [place] [address] [place] [address] latanoprost 2020-06 Yes latanopros Univers , PF, 0.005 0-03 t 0.005 % ity of % Drop 13:23: eye drops [address] fluticasone 2020-06 Yes 1{puff} Inhale 1 Univers -salmeterol 0-03 Puff once ity of (ADVAIR 13:23: daily as [place] DISKUS) 04 needed. [facility] [address] Branch mcg/dose inhalation disk Cranberry 2020-06 Yes Take by [place] rs Extract 200 0-03 mouth. ity of mg Cap 13:23: [address] omeprazole 2020-06 Yes 20mg Take 20 mg U nivers 20 mg 0-03 by mouth ity of capsule 13:23: daily. [address] brimonidine 2020-06 Yes brimonidin Univers 0.2 % 0-03 e 0.2 % ity of ophthalmic 13:23: eye drops [place] [address] [place] [address] latanoprost 2020-06 Yes latanopros Univers , PF, 0.005 0-03 t 0.005 % ity of % Drop 13:23: eye drops [address] fluticasone 2020-06 Yes 1{puff} Inhale 1 Univers -salmeterol 0-03 Puff once ity of (ADVAIR 13:23: daily as [place] DISKUS) 04 needed. Medical 250-50 Branch mcg/dose inhalation disk Cranberry 2020-06 Yes Take by [employer] Extract 200 0-03 mouth. ity of mg Cap 13:23: [address] omeprazole 2020-06 Yes 20mg Take 20 mg U nivers 20 mg 0-03 by mouth ity of capsule 13:23: daily. [address] brimonidine 2020-06 Yes brimonidin Univers 0.2 % 0-03 e 0.2 % ity of ophthalmic 13:23: eye drops [place] [facility] latanoprost 2020-06 Yes latanopros Univers , PF, 0.005 0-03 t 0.005 % ity of % Drop 13:23: eye drops [address] fluticasone 2020-06 Yes 1{puff} Inhale 1 Univers -salmeterol 0-03 Puff once ity of (ADVAIR 13:23: daily as [place] DISKUS) 04 needed. Medical 250-50 Branch mcg/dose inhalation disk Cranberry 2020-06 Yes Take by [employer] Return Extract 200 0-03 mouth. ity of mg Cap 13:23: [address] omeprazole 2020-06 Yes 20mg Take 20 mg U nivers 20 mg 0-03 by mouth ity of capsule 13:23: daily. [address] brimonidine 2020-06 Yes brimonidin Univers 0.2 % 0-03 e 0.2 % ity of ophthalmic 13:23: eye drops [place] [facility] latanoprost 2020-06 Yes latanopros Univers , PF, 0.005 0-03 t 0.005 % ity of % Drop 13:23: eye drops [address] fluticasone 2020-06 Yes 1{puff} Inhale 1 Univers -salmeterol 0-03 Puff once ity of (ADVAIR 13:23: daily as [place] DISKUS) 04 needed. Medical 250-50 Branch mcg/dose inhalation disk Cranberry 2020-06 Yes Take by Unive rs Extract 200 0-03 mouth. ity of mg Cap 13:23: [address] omeprazole 2020-06 Yes 20mg Take 20 mg U nivers 20 mg 0-03 by mouth ity of capsule 13:23: daily. [address] brimonidine 2020-06 Yes brimonidin Univers 0.2 % 0-03 e 0.2 % ity of ophthalmic 13:23: eye drops [place] solution [facility] latanoprost 2020-06 Yes latanopros Univers , PF, 0.005 0-03 t 0.005 % ity of % Drop 13:23: eye drops [address] fluticasone 2020-06 Yes 1{puff} Inhale 1 Univers -salmeterol 0-03 Puff once ity of (ADVAIR 13:23: daily as [place] DISKUS) 04 needed. Medical 250-50 Branch mcg/dose inhalation disk Cranberry 2020-06 Yes Take by [employer] Extract 200 0-03 mouth. ity of mg Cap 13:23: [address] omeprazole 2020-06 Yes 20mg Take 20 mg U nivers 20 mg 0-03 by mouth ity of capsule 13:23: daily. [address] brimonidine 2020-06 Yes brimonidin Univers 0.2 % 0-03 e 0.2 % ity of ophthalmic 13:23: eye drops [place] [address] [place] [address] latanoprost 2020-06 Yes latanopros Univers , PF, 0.005 0-03 t 0.005 % ity of % Drop 13:23: eye drops [address] fluticasone 2020-06 Yes 1{puff} Inhale 1 Univers -salmeterol 0-03 Puff once ity of (ADVAIR 13:23: daily as [place] DISKUS) 04 needed. Medical 250-50 Branch mcg/dose inhalation disk Cranberry 2020-06 Yes Take by [facility] Access rs Extract 200 0-03 mouth. ity of mg Cap 13:23: [address] omeprazole 2020-06 Yes 20mg Take 20 mg U nivers 20 mg 0-03 by mouth ity of capsule 13:23: daily. [address] brimonidine 2020-06 Yes brimonidin Univers 0.2 % 0-03 e 0.2 % ity of ophthalmic 13:23: eye drops [place] [address] [place] [address] latanoprost 2020-06 Yes latanopros Univers , PF, 0.005 0-03 t 0.005 % ity of % Drop 13:23: eye drops [address] fluticasone 2020-06 Yes 1{puff} Inhale 1 Univers -salmeterol 0-03 Puff once ity of (ADVAIR 13:23: daily as [place] DISKUS) 04 needed. Medical 250-50 Branch mcg/dose inhalation disk Cranberry 2020-06 Yes Take by [place] rs Extract 200 0-03 mouth. ity of mg Cap 13:23: [address] omeprazole 2020-06 Yes 20mg Take 20 mg U nivers 20 mg 0-03 by mouth ity of capsule 13:23: daily. [address] brimonidine 2020-06 Yes brimonidin Univers 0.2 % 0-03 e 0.2 % ity of ophthalmic 13:23: eye drops [place] [address] [place] [address] latanoprost 2020-06 Yes latanopros Univers , PF, 0.005 0-03 t 0.005 % ity of % Drop 13:23: eye drops [address] fluticasone 2020-06 Yes 1{puff} Inhale 1 Univers -salmeterol 0-03 Puff once ity of (ADVAIR 13:23: daily as [place] DISKUS) 04 needed. [facility] [address] Branch mcg/dose inhalation disk Cranberry 2020-06 Yes Take by [facility]B Access rs Extract 200 0-03 mouth. ity of mg Cap 13:23: [address] omeprazole 2020-06 Yes 20mg Take 20 mg U nivers 20 mg 0-03 by mouth ity of capsule 13:23: daily. [address] brimonidine 2020-06 Yes brimonidin Univers 0.2 % 0-03 e 0.2 % ity of ophthalmic 13:23: eye drops [place] [address] [place] [address] latanoprost 2020-06 Yes latanopros Univers , PF, 0.005 0-03 t 0.005 % ity of % Drop 13:23: eye drops [address] fluticasone 2020-06 Yes 1{puff} Inhale 1 Univers -salmeterol 0-03 Puff once ity of (ADVAIR 13:23: daily as [place] DISKUS) 04 needed. Medical 250-50 Branch mcg/dose inhalation disk Cranberry 2020-06 Yes Take by Unive rs Extract 200 0-03 mouth. ity of mg Cap 13:23: [address] omeprazole 2020-06 Yes 20mg Take 20 mg U nivers 20 mg 0-03 by mouth ity of capsule 13:23: daily. [address] brimonidine 2020-06 Yes brimonidin Univers 0.2 % 0-03 e 0.2 % ity of ophthalmic 13:23: eye drops [place] solution [facility] latanoprost 2020-06 Yes latanopros Univers , PF, 0.005 0-03 t 0.005 % ity of % Drop 13:23: eye drops [address] fluticasone 2020-06 Yes 1{puff} Inhale 1 Univers -salmeterol 0-03 Puff once ity of (ADVAIR 13:23: daily as [place] DISKUS) 04 needed. Medical [address] Branch mcg/dose inhalation disk Cranberry 2020-06 Yes Take by [facility] rs Extract 200 0-03 mouth. ity of mg Cap 13:23: [address] omeprazole 2020-06 Yes 20mg Take 20 mg U nivers 20 mg 0-03 by mouth ity of capsule 13:23: daily. [address] brimonidine 2020-06 Yes brimonidin Univers 0.2 % 0-03 e 0.2 % ity of ophthalmic 13:23: eye drops [place] solution [facility] latanoprost 2020-06 Yes latanopros Univers , PF, 0.005 0-03 t 0.005 % ity of % Drop 13:23: eye drops [address] fluticasone 2020-06 Yes 1{puff} Inhale 1 Univers -salmeterol 0-03 Puff once ity of (ADVAIR 13:23: daily as [place] DISKUS) 04 needed. Medical 250-50 Branch mcg/dose inhalation disk Cranberry 2020-06 Yes Take by [place] rs Extract 200 0-03 mouth. ity of mg Cap 13:23: [address] omeprazole 2020-06 Yes 20mg Take 20 mg U nivers 20 mg 0-03 by mouth ity of capsule 13:23: daily. [address] brimonidine 2020-06 Yes brimonidin Univers 0.2 % 0-03 e 0.2 % ity of ophthalmic 13:23: eye drops [place] solution [facility] latanoprost 2020-06 Yes latanopros Univers , PF, 0.005 0-03 t 0.005 % ity of % Drop 13:23: eye drops [address] fluticasone 2020-06 Yes 1{puff} Inhale 1 Univers -salmeterol 0-03 Puff once ity of (ADVAIR 13:23: daily as [place] DISKUS) 04 needed. Medical 250-50 Branch mcg/dose inhalation disk Cranberry 2020-06 Yes Take by [place] rs Extract 200 0-03 mouth. ity of mg Cap 13:23: [address] omeprazole 2020-06 Yes 20mg Take 20 mg U nivers 20 mg 0-03 by mouth ity of capsule 13:23: daily. [address] brimonidine 2020-06 Yes brimonidin Univers 0.2 % 0-03 e 0.2 % ity of ophthalmic 13:23: eye drops [place] solution [address] [place] [address] latanoprost 2020-06 Yes latanopros Univers , PF, 0.005 0-03 t 0.005 % ity of % Drop 13:23: eye drops [address] fluticasone 2020-06 Yes 1{puff} Inhale 1 Univers -salmeterol 0-03 Puff once ity of (ADVAIR 13:23: daily as [place] DISKUS) 04 needed. Medical 250-50 Branch mcg/dose inhalation disk Cranberry 2020-06 Yes Take by [place] rs Extract 200 0-03 mouth. ity of mg Cap 13:23: [address] omeprazole 2020-06 Yes 20mg Take 20 mg U nivers 20 mg 0-03 by mouth ity of capsule 13:23: daily. [address] brimonidine 2020-06 Yes brimonidin Univers 0.2 % 0-03 e 0.2 % ity of ophthalmic 13:23: eye drops [place] solution [address] [place] [address] latanoprost 2020-06 Yes latanopros Univers , PF, 0.005 0-03 t 0.005 % ity of % Drop 13:23: eye drops [address] fluticasone 2020-06 Yes 1{puff} Inhale 1 Univers -salmeterol 0-03 Puff once ity of (ADVAIR 13:23: daily as [place] DISKUS) 04 needed. Medical 250-50 Branch mcg/dose inhalation disk Cranberry 2020-06 Yes Take by [facility] rs Extract 200 0-03 mouth. ity of mg Cap 13:23: [address] omeprazole 2020-06 Yes 20mg Take 20 mg U nivers 20 mg 0-03 by mouth ity of capsule 13:23: daily. [address] brimonidine 2020-06 Yes brimonidin Univers 0.2 % 0-03 e 0.2 % ity of ophthalmic 13:23: eye drops [place] [address] [place] [address] latanoprost 2020-06 Yes latanopros Univers , PF, 0.005 0-03 t 0.005 % ity of % Drop 13:23: eye drops [address] fluticasone 2020-06 Yes 1{puff} Inhale 1 Univers -salmeterol 0-03 Puff once ity of (ADVAIR 13:23: daily as [place] DISKUS) 04 needed. [facility] [address] Branch mcg/dose inhalation disk Cranberry 2020-06 Yes Take by [facility] Access rs Extract 200 0-03 mouth. ity of mg Cap 13:23: [address] omeprazole 2020-06 Yes 20mg Take 20 mg U nivers 20 mg 0-03 by mouth ity of capsule 13:23: daily. [address] brimonidine 2020-06 Yes brimonidin Univers 0.2 % 0-03 e 0.2 % ity of ophthalmic 13:23: eye drops [place] solution [address] [place] [address] latanoprost 2020-06 Yes latanopros Univers , PF, 0.005 0-03 t 0.005 % ity of % Drop 13:23: eye drops [address] fluticasone 2020-06 Yes 1{puff} Inhale 1 Univers -salmeterol 0-03 Puff once ity of (ADVAIR 13:23: daily as [place] DISKUS) 04 needed. Medical 250-50 Branch mcg/dose inhalation disk Cranberry 2020-06 Yes Take by Unive rs Extract 200 0-03 mouth. ity of mg Cap 13:23: [place] [facility] omeprazole 2020-06 Yes 20mg Take 20 mg U nivers 20 mg 0-03 by mouth ity of capsule 13:23: daily. Medical Branch brimonidine 2020-06 Yes brimonidin Univers 0.2 % 0-03 e 0.2 % ity of ophthalmic 13:23: eye drops [place] solution [facility] Branch latanoprost 2020-06 Yes latanopros Univers , PF, 0.005 0-03 t 0.005 % ity of % Drop 13:23: eye drops [facility] Branch traMADoL 50 Yes 4647 50mg Take 1 [...] 7-10). Indication s: acute pain traMADoL 50 0 Yes 4647 50mg Take 1 Univ ers [...] (scale 7-10). Indication s: acute pain traZODone 0 Yes Univers 50 mg 7-14 ity of tablet 00:00: Medical Branch traZODone 0 Yes Univers 50 mg 7-14 ity of tablet 00:00: Medical Branch traZODone 0 Yes Univers 50 mg 7-14 ity of tablet 00:00: Medical Branch traZODone 0 Yes Univers 50 mg 7-14 ity of tablet 00:00: Medical Branch traZODone 0 Yes Univers 50 mg 7-14 ity of tablet 00:00: Medical Branch traZODone 0 Yes Univers 50 mg 7-14 ity of tablet 00:00: Medical Branch traZODone 0 Yes Univers 50 mg 7-14 ity of tablet 00:00: Medical Branch traZODone 0 Yes Univers 50 mg 7-14 ity of tablet 00:00: Medical Branch traZODone 0 Yes Univers 50 mg 7-14 ity of tablet 00:00: [place] [facility] traZODone 2020-0 Yes Univers 50 mg 7-14 ity of tablet 00:00: Medical Branch traZODone 2020-0 Yes Univers 50 mg 7-14 ity of tablet 00:00: Medical Branch traZODone 2020-0 Yes Univers 50 mg 7-14 ity of tablet 00:00: [place] [facility] traZODone 2020-0 Yes Univers 50 mg 7-14 ity of tablet 00:00: [place] [facility] traZODone 2020-0 Yes Univers 50 mg 7-14 ity of tablet 00:00: [place] [facility] traZODone 2020-0 Yes Univers 50 mg 7-14 ity of tablet 00:00: [place] [facility] traZODone 2020-0 Yes Univers 50 mg 7-14 ity of tablet 00:00: [place] [facility] traZODone 2020-0 Yes Univers 50 mg 7-14 ity of tablet 00:00: [place] [facility] traZODone 0 Yes Univers 50 mg 7-14 ity of tablet 00:00: [place] [facility] traZODone 2020-0 Yes Univers 50 mg 7-14 ity of tablet 00:00: [place] [facility] latanoprost 2017-0 Yes Univer s 0.005 % 6-05 ity of ophthalmic 00:00: [place] drops Medical Branch latanoprost 2018-0 Yes Univer s 0.005 % 6-05 ity of ophthalmic 00:00: [place] drops Medical Branch latanoprost 2018-0 Yes Univer s 0.005 % 6-05 ity of ophthalmic 00:00: [place] [facility] latanoprost 2018-0 Yes Univer s 0.005 % 6-05 ity of ophthalmic 00:00: [place] [facility] latanoprost 2018-0 Yes Univer s 0.005 % 6-05 ity of ophthalmic 00:00: [place] [facility] latanoprost 2018-0 Yes Univer [...] ophthalmic 00:00: [place] [facility] 00 [facility] atorvastati 2018-0 Yes Univer [...] 20 mg 6-03 ity of tablet 00:00: [place] [facility] atorvastati 2018-0 Yes Univer s n 20 mg 6-03 ity of tablet 00:00: [place] [facility] atorvastati 2018-0 Yes Univer s n 20 mg 6-03 ity of tablet 00:00: [place] [facility] atorvastati 2018-0 Yes Univer s n 20 mg 6-03 ity of tablet 00:00: [place] [address] [facility] Branch atorvastati 2018-0 Yes Univer s n 20 mg 6-03 ity of tablet 00:00: [place] [address] [facility] Branch atorvastati 2018-0 Yes Univer s n 20 mg 6-03 ity of tablet 00:00: [place] [facility] atorvastati 2018-0 Yes Univer s n 20 mg 6-03 ity of tablet 00:00: [place] [address] [facility] Branch atorvastati 2018-0 Yes Univer s n 20 mg 6-03 ity of tablet 00:00: [place] [address] [facility] atorvastati 2018-0 Yes Univer s n 20 mg 6-03 ity of tablet 00:00: [place] [address] [facility] Branch atorvastati 2018-0 Yes Univer s n 20 mg 6-03 ity of tablet 00:00: [place] [address] [facility] atorvastati 2018-0 Yes Univer s n 20 mg 6-03 ity of tablet 00:00: [place] [address] [facility] atorvastati 2018-0 Yes Univer s n 20 mg 6-03 ity of tablet 00:00: [place] [facility] atorvastati 2018-0 Yes Univer s n 20 mg 6-03 ity of tablet 00:00: [place] [address] [facility] atorvastati 2018-0 Yes Univer s n 20 mg 6-03 ity of tablet 00:00: [place] [address] [facility] atorvastati 2018-0 Yes Univer s n 20 mg 6-03 ity of tablet 00:00: [place] [address] [facility] carvedilol 2018-0 Yes Univers 12.5 mg 5-29 ity of tablet 00:00: [place] [address] [facility] carvedilol 2018-0 Yes Univers 12.5 mg 5-29 ity of tablet 00:00: [place] [address] [facility] carvedilol 2018-0 Yes Univers 12.5 mg 5-29 ity of tablet 00:00: [address] carvedilol 2017-0 Yes Univers 12.5 mg 5-29 ity of tablet 00:00: [address] Branch carvedilol 2017-0 Yes Univers 12.5 mg 5-29 ity of tablet 00:00: [address] carvedilol 2017-0 Yes Univers 12.5 mg 5-29 ity of tablet 00:00: [address] carvedilol 2017-0 Yes Univers 12.5 mg 5-29 ity of tablet 00:00: [address] carvedilol 0 Yes Univers 12.5 mg 5-29 ity of tablet 00:00: [address] carvedilol 2017-0 Yes Univers 12.5 mg 5-29 ity of tablet 00:00: [address] carvedilol 0 Yes Univers 12.5 mg 5-29 ity of tablet 00:00: [address] carvedilol 2017-0 Yes Univers 12.5 mg 5-29 ity of tablet 00:00: [address] carvedilol 0 Yes Univers 12.5 mg 5-29 ity of tablet 00:00: [address] carvedilol 2017-0 Yes Univers 12.5 mg 5-29 ity of tablet 00:00: [address] carvedilol 2017-0 Yes Univers 12.5 mg 5-29 ity of tablet 00:00: [address] carvedilol 2017-0 Yes Univers 12.5 mg 5-29 ity of tablet 00:00: [address] carvedilol 2017-0 Yes Univers 12.5 mg 5-29 ity of tablet 00:00: [address] carvedilol 2017-0 Yes Univers 12.5 mg 5-29 ity of tablet 00:00: [address] carvedilol 2017-0 Yes Univers 12.5 mg 5-29 ity of tablet 00:00: [address] carvedilol 0 Yes Univers 12.5 mg 5-29 ity of tablet 00:00: [address] famotidine 0 Yes Univers 40 mg 5-21 ity of tablet 00:00: [place] [facility] famotidine 2018-0 Yes Univers 40 mg 5-21 ity of tablet 00:00: [place] [facility] famotidine 2018-0 Yes Univers 40 mg 5-21 ity of tablet 00:00: [place] [address] [facility] famotidine 2017-0 Yes Univers 40 mg 5-21 ity of tablet 00:00: [address] Branch famotidine 0 Yes Univers 40 mg 5-21 ity of tablet 00:00: [address] Branch famotidine 2017-0 Yes Univers 40 mg 5-21 ity of tablet 00:00: [address] Branch famotidine 2017-0 Yes Univers 40 mg 5-21 ity of tablet 00:00: [address] Branch famotidine 2017-0 Yes Univers 40 mg 5-21 ity of tablet 00:00: [address] Branch famotidine 2017-0 Yes Univers 40 mg 5-21 ity of tablet 00:00: [address] famotidine 0 Yes Univers 40 mg 5-21 ity of tablet 00:00: [address] famotidine 2017-0 Yes Univers 40 mg 5-21 ity of tablet 00:00: [address] Branch famotidine 0 Yes Univers 40 mg 5-21 ity of tablet 00:00: [address] famotidine 2017-0 Yes Univers 40 mg 5-21 ity of tablet 00:00: [address] Branch famotidine 2017-0 Yes Univers 40 mg 5-21 ity of tablet 00:00: [address] Branch famotidine 2017-0 Yes Univers 40 mg 5-21 ity of tablet 00:00: [address] Branch famotidine 2017-0 Yes Univers 40 mg 5-21 ity of tablet 00:00: [address] Branch famotidine 2017-0 Yes Univers 40 mg 5-21 ity of tablet 00:00: [address] Branch famotidine 2018-0 Yes Univers 40 mg 5-21 ity of tablet 00:00: [address] Branch famotidine 2017-0 Yes Univers 40 mg 5-21 ity of tablet 00:00: [address] Branch gabapentin 2017-0 Yes Univers 600 mg 5-07 ity of tablet 00:00: [address] Branch gabapentin 2018-0 Yes Univers 600 mg 5-07 ity of tablet 00:00: [address] gabapentin 2018-0 Yes Univers 600 mg 5-07 ity of tablet 00:00: [place] [address] [facility] Branch gabapentin 2018-0 Yes Univers 600 mg 5-07 ity of tablet 00:00: [place] [address] [facility] gabapentin 2018-0 Yes Univers 600 mg 5-07 ity of tablet 00:00: [place] [address] [facility] gabapentin 2018-0 Yes Univers 600 mg 5-07 ity of tablet 00:00: [place] [address] [facility] gabapentin 2018-0 Yes Univers 600 mg 5-07 ity of tablet 00:00: [place] [address] [facility] gabapentin 2018-0 Yes Univers 600 mg 5-07 ity of tablet 00:00: [place] [address] [facility] gabapentin 2018-0 Yes Univers 600 mg 5-07 ity of tablet 00:00: [place] [address] [facility] gabapentin 2018-0 Yes Univers 600 mg 5-07 ity of tablet 00:00: [place] [address] [facility] gabapentin 2018-0 Yes Univers 600 mg 5-07 ity of tablet 00:00: [place] [address] [facility] gabapentin 2018-0 Yes Univers 600 mg 5-07 ity of tablet 00:00: [place] [address] [facility] gabapentin 2018-0 Yes Univers 600 mg 5-07 ity of tablet 00:00: [place] [address] [facility] gabapentin 2018-0 Yes Univers 600 mg 5-07 ity of tablet 00:00: [place] [address] [facility] gabapentin 2018-0 Yes Univers 600 mg 5-07 ity of tablet 00:00: [place] [address] [facility] gabapentin 2018-0 Yes Univers 600 mg 5-07 ity of tablet 00:00: [place] [address] [facility] gabapentin 2018-0 Yes Univers 600 mg 5-07 ity of tablet 00:00: [place] [address] [facility] gabapentin 2018-0 Yes Univers 600 mg 5-07 ity of tablet 00:00: [place] [address] [facility] gabapentin 2018-0 Yes Univers 600 mg 5-07 ity of tablet 00:00: [address] Branch levothyroxi 2018-0 Yes Univer s ne 50 mcg 3-30 ity of tablet 00:00: [address] Branch levothyroxi 2018-0 Yes Univer s ne 50 mcg 3-30 ity of tablet 00:00: [address] Branch levothyroxi 2018-0 Yes Univer s ne 50 mcg 3-30 ity of tablet 00:00: [address] Branch levothyroxi 2018-0 Yes Univer s ne 50 mcg 3-30 ity of tablet 00:00: [place] 00 [facility] levothyroxi 2018-0 Yes Univer s ne 50 mcg 3-30 ity of tablet 00:00: [place] 00 [facility] levothyroxi 2018-0 Yes Univer s ne 50 mcg 3-30 ity of tablet 00:00: [place] [facility] levothyroxi 2018-0 Yes Univer s ne 50 mcg 3-30 ity of tablet 00:00: [place] 00 [facility] levothyroxi 2018-0 Yes Univer s ne 50 mcg 3-30 ity of tablet 00:00: [place] [facility] levothyroxi 2018-0 Yes Univer s ne 50 mcg 3-30 ity of tablet 00:00: [place] [address] [facility] levothyroxi 2018-0 Yes Univer s ne 50 mcg 3-30 ity of tablet 00:00: [place] [address] [facility] levothyroxi 2018-0 Yes Univer s ne 50 mcg 3-30 ity of tablet 00:00: [place] [address] [facility] levothyroxi 2018-0 Yes Univer s ne 50 mcg 3-30 ity of tablet 00:00: [place] [address] [facility] levothyroxi 2018-0 Yes Univer s ne 50 mcg 3-30 ity of tablet 00:00: [place] [address] [facility] levothyroxi 2018-0 Yes Univer s ne 50 mcg 3-30 ity of tablet 00:00: [place] [address] [facility] levothyroxi 2018-0 Yes Univer s ne 50 mcg 3-30 ity of tablet 00:00: [place] [address] [facility] levothyroxi 2018-0 Yes Univer s ne 50 mcg 3-30 ity of tablet 00:00: [place] [address] [facility] levothyroxi 2018-0 Yes Univer s ne 50 mcg 3-30 ity of tablet 00:00: [place] [address] [facility] levothyroxi 2018-0 Yes Univer s ne 50 mcg 3-30 ity of tablet 00:00: [place] [address] [facility] levothyroxi 2018-0 Yes Univer s ne 50 mcg 3-30 ity of tablet 00:00: [place] [address] [facility] Branch Advair Advair No Advair [facility] 250 [...] No Fluzone [facility] High-Dose High-Dose High-Dose Medical [phone] [id number] [id number] (PF) 180 (PF) 180 (PF) 180 mcg/0.5 [...] 30 mg 30 mg tablet tablet tablet Immunizations Ordered Filled Date Status Comments Source Immunization Name Immunization Name SARS-COV-2 COVID-19 2021-02-10 Completed Unive rsity of [facility] VACCINE 00:00:00 [facility] ical Branch SARS-COV-2 COVID-19 2021-02-10 Completed [facility]ive rsity [facility] [place] [facility]-COV-2 COVID-19 2021-02-10 Completed Unive rsity of [facility] VACCINE 00:00:00 [facility] SARS-COV-2 COVID-19 2021-02-10 Completed Unive rsity of MODERNA VACCINE 00:00:00 [facility] ical Branch SARS-COV-2 COVID-19 2021-02-10 Completed Unive rsity of [facility] VACCINE 00:00:00 [facility] [place] SARS-COV-2 COVID-19 2021-02-10 Completed Unive rsity of MODERNA 12+ YRS 00:00:00 [facility] ical VACCINE Branch SARS-COV-2 COVID-19 2021-02-10 Completed Unive rsity of MODERNA 12+ YRS 00:00:00 [facility] ical VACCINE Branch SARS-COV-2 COVID-19 2021-02-10 Completed Unive rsity of MODERNA 12+ YRS 00:00:00 [facility] ical VACCINE Branch SARS-COV-2 COVID-19 2021-02-10 Completed Unive rsity of MODERNA 12+ YRS 00:00:00 [facility] ical VACCINE Branch SARS-COV-2 COVID-19 2021-02-10 Completed Unive rsity of MODERNA 12+ YRS 00:00:00 [facility] Branch SARS-COV-2 COVID-19 2021-02-10 Completed Unive rsity of MODERNA 12+ YRS 00:00:00 [facility] Branch SARS-COV-2 COVID-19 2021-02-10 Completed Unive rsity of MODERNA 12+ YRS 00:00:00 [facility] ical VACCINE Branch SARS-COV-2 COVID-19 2021-02-10 Completed Unive rsity of MODERNA 12+ YRS 00:00:00 [facility] Branch SARS-COV-2 COVID-19 2021-02-10 Completed Unive rsity of MODERNA 12+ YRS 00:00:[address] [facility] VACCINE Branch TDAP 2018-11-22 Completed University of 00:00:00 [facility] Branch TDAP 2018-11-22 Completed University of 00:00:00 [facility] Branch TDAP 2018-11-22 Completed University of 00:00:00 [facility] Branch TDAP 2018-11-22 Completed University of 00:00:00 [place] [facility] TDAP 2018-11-22 Completed University of 00:00:00 [place] [facility] TDAP 2018-11-22 Completed University of 00:00:00 [place] [facility] TDAP 2018-11-22 Completed University of 00:00:00 [place] [facility] TDAP 2018-11-22 Completed University of 00:00:00 [place] [facility] TDAP 2018-11-22 Completed University of 00:00:00 [place] [facility] TDAP 2018-11-22 Completed University of 00:00:00 [facility] Branch TDAP 2018-11-22 Completed University of 00:00:00 [place] [facility] TDAP 2018-11-22 Completed University of 00:00:00 [place] [facility] TDAP 2018-11-22 Completed University of 00:00:00 [place] [facility] TDAP 2018-11-22 Completed University of 00:00:00 [facility] Zoster Vaccine 2018-01-18 Completed University of Recombinant 00:00:00 [facility] Zoster Vaccine 2018-01-18 Completed University of Recombinant 00:00:00 [facility] Zoster Vaccine 2018-01-18 Completed University of Recombinant 00:00:00 [facility] Zoster Vaccine 2018-01-18 Completed University of Recombinant 00:00:00 [facility] Zoster Vaccine 2018-01-18 Completed University of Recombinant 00:00:00 [facility] Zoster Vaccine 2018-01-18 Completed University of Recombinant 00:00:00 [facility] Zoster Vaccine 2018-01-18 Completed University of Recombinant 00:00:00 [facility] Zoster Vaccine 2018-01-18 Completed University of Recombinant 00:00:00 [facility] Zoster Vaccine 2018-01-18 Completed University of Recombinant 00:00:00 [facility] Zoster Vaccine 2018-01-18 Completed University of Recombinant 00:00:00 [facility] Zoster Vaccine 2018-01-18 Completed University of Recombinant 00:00:00 [facility] Zoster Vaccine 2018-01-18 Completed University of Recombinant 00:00:00 [facility] Zoster Vaccine 2018-01-18 Completed University of Recombinant 00:00:00 [facility] Zoster Vaccine 2018-01-18 Completed University of Recombinant 00:00:00 [facility] TDAP Unknown Completed [facility] Zoster Vaccine Unknown Completed [facility] SARS-COV-2 COVID-19 Unknown Completed Unive rsity of MODERNA 12+ YRS [facility] ical VACCINE Branch TDAP Unknown Completed [facility] Zoster Vaccine Unknown Completed [facility] SARS-COV-2 COVID-19 Unknown Completed Unive rsity of MODERNA 12+ YRS [facility] ical VACCINE Branch TDAP Unknown Completed [facility] Zoster Vaccine Unknown Completed [facility] SARS-COV-2 COVID-19 Unknown Completed Unive rsity of MODERNA 12+ YRS [facility] ical VACCINE Branch TDAP Unknown Completed [facility] Zoster Vaccine Unknown Completed [facility] SARS-COV-2 COVID-19 Unknown Completed Unive rsity of MODERNA 12+ YRS [facility] ical VACCINE Branch TDAP Unknown Completed [facility] Zoster Vaccine Unknown Completed [facility] SARS-COV-2 COVID-19 Unknown Completed Unive rsity of MODERNA 12+ YRS [facility] ical VACCINE Branch Vital Signs Vital Name Observation Time Observation Value Comments Source Systolic blood 2023-04-29 01:21:00 126 mm[Hg] Univer sity of pressure [facility] Diastolic blood 2023-04-29 01:21:00 85 mm[Hg] Unive rsity of pressure [facility] Heart rate 2023-04-29 01:21:00 86 /[facility] Body temperature 2023-04-29 01:21:00 37.11 Aleida Univ ersity of [facility] Respiratory rate 2023-04-29 01:21:00 18 /min Univ ersity of [facility] Oxygen saturation in 2023-04-29 01:21:00 100 /min [facility] Arterial blood by [facility] Pulse oximetry Branch Systolic blood 2023-04-05 15:37:00 104 mm[Hg] Univer sity of pressure [facility] Diastolic blood 2023-04-05 15:37:00 64 mm[Hg] Unive rsity of pressure [facility] Heart rate 2023-04-05 15:37:00 75 /min Universi ty of [facility] Body height 2023-04-05 15:37:00 154.9 cm Universi ty of [facility] Body weight 2023-04-05 15:37:00 53.842 kg Universi ty of [facility] BMI 2023-04-05 15:37:00 22.43 kg/m2 Universi ty of [facility] Systolic blood 2022-11-17 16:17:00 142 mm[Hg] Univer sity of pressure [facility] Diastolic blood 2022-11-17 16:17:00 56 mm[Hg] Unive rsity of pressure [facility] Heart rate 2022-11-17 16:17:00 52 /min Universi ty of [facility] Body height 2022-11-17 16:16:00 162.6 cm Universi ty of [place] [facility] [place] Body weight 2022-11-17 16:16:00 62.551 kg Universi ty of [facility] BMI 2022-11-17 16:16:00 23.67 kg/m2 Universi ty of [facility] Systolic blood 2022-03-21 15:34:00 138 mm[Hg] Univer sity of pressure [facility] Diastolic blood 2022-03-21 15:34:00 72 mm[Hg] Unive rsity of pressure [facility] Heart rate 2022-03-21 15:34:00 64 /min Universi ty of [facility] Body height 2022-03-21 15:34:00 154.9 cm Universi ty of [facility] Body weight 2022-03-21 15:34:00 66.679 kg Universi ty of [facility] BMI 2022-03-21 15:34:00 27.78 kg/m2 Universi ty of [place] [facility] Oxygen saturation in 2022-03-21 15:34:00 98 /min University Arterial blood by [facility] Pulse oximetry Branch BP Diastolic 2020-09-14 00:00:00 62 mm[Hg] [facility] Height 2020-09-14 00:00:00 61 [in_i] [facility] BMI (Body Mass 2020-09-14 00:00:00 26.5 kg/m2 [facility] Medical Index) BP Systolic 2020-09-14 00:00:00 116 mm[Hg] [facility] Body Weight 2020-09-14 00:00:00 140 [lb_av] [facility] J[facility] edse Procedures Procedure Date / Time Performing Clinician Source Performed NOTICE OF PRIVACY 2023-04-29 01:01:15 Doctor Unassigned, [facility] PRACTICES [facility] CONSENT/REFUSAL FOR 2023-04-29 01:00:55 Doctor Unassigned, [facility] DIAGNOSIS AND TREATMENT [facility] XR HIPS 2 VW BILATERAL 2023-04-05 15:47:45 Marta Johnson [facility] NM BRAIN SPECT W I 123 2023-04-04 20:09:[address] [facility] PATIENT FINANCIAL 2022-11-17 16:08:44 Doctor Unassigned, [facility] POLICY [facility] CONSENT/REFUSAL FOR 2022-03-21 15:31:03 Doctor Unassigned, [facility] DIAGNOSIS AND TREATMENT [facility] ASSIGNMENT OF BENEFITS 2021-09-01 15:36:52 [facility] ASSIGNMENT OF BENEFITS 2021-08-04 20:54:34 [facility] Hysterectomy with [facility] Oophere[facility] [...] Planned Date Details Comments Source Future Scheduled 2023-04-28 65+ PNEUMOCOCCAL Methodi [facility] Test 19:03:09 VACCINE (1 - PCV) [code = 65+ PNEUMOCOCCAL VACCINE (1 - PCV)] Future Scheduled 2023-04-28 SHINGLES VACCINES (2 Met [facility] Test 19:03:09 of 2) [code = SHINGLES VACCINES (2 of 2)] Future Scheduled 2023-04-04 65+ PNEUMOCOCCAL Methodi [facility] Test 14:58:40 VACCINE (1 - PCV) [code = 65+ PNEUMOCOCCAL VACCINE (1 - PCV)] Future Scheduled 2023-04-04 SHINGLES VACCINES (2 Met [facility] Test 14:58:40 of 2) [code = SHINGLES VACCINES (2 of 2)] Diagnostic Test 2020-09-15 urinalysis, complete [facility] Pending 00:00:00 [code = urinalysis, complete] Diagnostic Test 2020-09-14 urinalysis, dipstick [facility] Pending 00:00:00 [code = urinalysis, dipstick] Encounters Start End Encounter Admission Attending Care Care Encounter Source Date/Time Date/Time Type Type Clinicians Facility Department ID 2022-10-[address] [facility] [id number] [place] 13:34:25 [id number] [facility] 2022-10-[address] [facility] [id number] [place] 10:27:02 [id number] [facility] 2022-10-[address] [facility] [id number] [place] 09:15:23 [id number] [facility] 2022-10-[address] [facility] [id number] [place] 07:21:02 [id number] [facility] 2022-09-[address] [facility] [id number] [place] 09:46:40 [id number] [facility] 2021-04-[address] [facility] [id number] Univers 02:59:47 [facility] 2021-04-[address] [facility] [id number] Univers 22:05:32 [facility] 2021-04-04 Inpatient Yohana JOHNSON RUST SOR [id number] Univers 09:11:17 MARTA [facility] 2021-04-[address] [facility] [id number] Univers 05:23:20 [facility] 2023-04-30 2023-04-[address] [facility] [id number] Univers 08:00:00 08:00:00 ity [facility] 2023-04-28 2023-04-28 Emergency X KEO RUST ERT [id number] Univers 19:26:00 19:42:00 AMBICA itcarl [facility] 2023-04-28 2023-04-28 [facility] [id number] Univers 19:26:00 19:42:00 Tenzin [place] [id number] i ty [place] [id number] [facility] [address] [place] 2023-04-11 2023-04-11 Outpatient FOG_Stramel AOSM AOSM [id number] [place] 00:00:00 00:00:00 _Jacob_NP [id number] [facility] 2023-04-11 2023-04-11 Outpatient FOG_Stramel AOSM AOSM [id number] [place] 00:00:00 00:00:00 _Jacob_NP [id number] [facility] 2023-04-05 2023-04-05 Hospital [facility] [id number] Univers 10:36:44 23:59:00 Encounter Marta Flores [employer] [id number] ity of [place] 4.2.7.2.686 Guillermo as OSWALDO?BLEA [id number] Wa dicronaldo RODRIGUEZ 8[facility] OFFICE BUILDING 2023-04-05 2023-04-05 Outpatient R JOHNSONMARTA [facility] [id number] Univers 10:45:00 10:53:32 MARTA JOHNSON [facility] 2023-04-05 2023-04-05 [facility] [id number] Univers 10:45:00 10:53:32 Visit Marta Flores [employer] [id number] it y of [place] 4.2.7.2.686 Guillermo as OSWALDO?BLEA [id number] [address] MEDICAL OFFICE BUILDING 2023-04-04 2023-04-04 [facility], 1.2.840.1 [id number] Methodi 13:18:36 23:59:00 Encounter Jovany Parker50.1.[address] 3.430.2.7 Hospit a .3.297329 l .8 2023-04-04 2023-04-04 [facility], 1.2.840.1 [id number] Methodi 13:18:36 23:59:00 Encounter Jovany Parker50.1.[address] 3.430.2.7 Hospit a .3.326008 l .8 2023-04-04 2023-04-04 [facility], 1.2.840.1 [id number] Methodi 08:55:35 13:17:00 Encounter Jovany Parker50.1.[address] 3.430.2.7 Hospit a .3.914273 l .8 2023-04-04 2023-04-04 [facility], 1.2.840.1 [id number] Methodi 08:55:35 13:17:00 Encounter Jovany Parker50.1.[address] 3.430.2.7 Hospit a .3.887756 l .8 2023-03-07 2023-03-07 Outpatient LUIS Harris, [facility] [id number] [facility] 09:47:00 09:47:00 [place] [facility] [place] [facility] 2023-03-05 2023-03-05 [facility] 1.2.840.1 [id number] Methodi 00:00:00 00:00:00 Orders Jovany Parker50.1.[address] 3.430.2.7 Hospit a .3.028286 l .8 2023-03-05 2023-03-05 [facility], 1.2.840.1 [id number] Methodi 00:00:00 00:00:00 Orders Jovany Parker50.1.[address] 3.430.2.7 [facility] a .3.590584 l .8 2023-01-08 2023-01-08 Outpatient NITA MillardTO PAIN [id number] [facility] 06:18:00 06:18:00 [place] 01 [facility] 2023-01-03 2023-01-03 Outpatient FOG_Stramel AOSM AOSM [id number] [place] 00:00:00 00:00:00 _Yury_NP [id number] [facility] 2023-01-03 2023-01-03 Outpatient FOG_Stramel AOSM AOSM [id number] Elizabeth 00:00:00 00:00:00 _Yury_NP [id number] [facility] 2023-01-03 2023-01-03 Outpatient FOG_Stramel AOSM AOSM [id number] [place] 00:00:00 00:00:00 _Yury_NP [id number] [facility] 2023-01-03 2023-01-03 Outpatient FOG_Stramel AOSM AOSM [id number] Elizabeth 00:00:00 00:00:00 _Yury_NP [id number] [facility] 2023-01-03 2023-01-03 Outpatient FOG_Stramel AOSM AOSM [id number] Elizabeth 00:00:00 00:00:00 _Yury_NP [id number] [facility] 2023-01-03 2023-01-03 Outpatient FOG_Stramel AOSM AOSM 626 [id number] Elizabeth 00:00:00 00:00:00 _Yury_NP [id number] [facility] 2023-01-03 2023-01-03 Outpatient FOG_Stramel AOSM AOSM 626 [id number] Elizabeth 00:00:00 00:00:00 _Yury_NP [id number] [facility] 2023-01-03 2023-01-03 Outpatient FOG_Stramel AOSM AOSM 626 [id number] Elizabeth 00:00:00 00:00:00 _Yury_NP [id number] [facility] 2023-01-02 2023-01-02 Outpatient FOG_Stramel AOSM AOSM 626 [id number] Elizabeth 00:00:00 00:00:00 _Yury_NP [id number] [facility] 2023-01-01 2023-01-01 Outpatient FOG_Stramel AOSM AOSM 626 [id number] Elizabeth 00:00:00 00:00:00 _Yury_NP [id number] [facility] 2022-11-17 2022-11-17 Office Leona RUST 1.2.840.114 [id number] Univers 11:15:00 11:30:[address] [facility] 350.1.13.10 it y of [place] 4.2.7.2.686 Guillermo as OSWALDO?BLEA [phone] [address] OFFICE [facility] 2022-11-17 2022-11-[address] [facility] [id number] Univers 11:15:00 11:15:00 [facility] 2022-11-17 2022-11-17 Orders Doctor RONY 1.2.840.114 [id number] Univers 00:00:00 00:00:00 Only Unassigned, DIANA 350.1.13.10 ity of [place] [facility] 4.2.7.2.686 Guillermo as [phone] [address] 2022-10-06 2022-10-06 Outpatient GAVIN VALENTIN [facility] [id number] 10:30:00 10:30:00 Health 2022-04-06 2022-04-[address] [facility] [id number] Univers 14:30:00 14:30:00 MARTA gallo [facility] 2022-03-31 2022-03-[address] [facility] [id number] Univers 13:45:00 15:23:01 MARTA gallo [facility] 2022-03-31 2022-03-31 Ancillary Lucia Laws RUST 1.2.84 0.114 [id number] Univers 13:45:00 15:23:01 Visit Marta Johnson Mark CHAVIRA 350.1.13.10 ity of [place] [facility] [phone] Wa dical NAL 179 [facility] 2022-03-21 2022-03-[address] [facility] [id number] Univers 10:44:38 23:59:00 MARTA gallo [facility] 2022-03-21 2022-03-21 Office Leona RUST 1.2.840.114 [id number] Univers 11:00:00 11:26:[address] [facility] 350.1.13.10 it y of [place] 4.2.7.2.686 Guillermo as OSWALDO?BLEA [phone] Wa dical KNEY 198 [facility] 2022-03-21 2022-03-21 Orders Doctor RONY 1.2.840.114 [id number] Univers 00:00:00 00:00:00 Only UnassignedDIANA 350.1.13.10 ity of [place] [facility] 4.2.7.2.686 Guillermo as [phone] [facility] [address] 2021-09-18 2021-09-18 [facility] [id number] [facility] 01:20:00 01:20:00 _Lara [id number] [facility] 2021-09-01 2021-09-01 Skin Installer 1, Adc Lab RUST 1.2.840.114 [id number] Univers 10:15:00 10:30:00 Visit Prashanth Stevenson 350.1.13.10 ity [facility] 4.2.7.2.[place] [phone] [facility] [address] 2021-09-01 2021-09-[address] [facility] [id number] Univers 10:15:00 10:15:00 PRASHANTH gallo [facility] 2021-09-01 2021-09-01 Orders Doctor URIBE 1.2.840.114 [id number] Univers 00:00:00 00:00:00 Only UnassignedDIANA 350.1.13.10 ity of [place] [facility] 4.2.7.2.686 Guillermo as [phone] [address] 2021-08-21 2021-08-21 Outpatient GC_SWHAWPRC PRIV PRIV [id number] [facility] 12:58:00 12:58:00 _Lara [id number] [facility] 2021-08-04 2021-08-04 Laboratory Only, Adc Test RUST 1.2.840. 114 [id number] Univers 15:15:00 15:30:00 Only Etienne Abdi 350.1.13.10 ity [facility] [place].2.7.2.[place] [phone] [address] 2021-08-04 2021-08-[address] [facility] [id number] Univers 15:15:00 15:15:00 ETIENNE itcarl [facility] 2021-08-04 2021-08-04 Orders Doctor URIBE 1.2.840.114 [id number] Univers 00:00:00 00:00:00 Only Unassigned, DIANA 350.1.13.10 ity of [place] [facility] 4.2.7.2.686 Guillermo as [phone] [address] 2021-07-24 2021-07-24 Outpatient GC_[facility] PRIV PRIV [id number] [facility] 01:10:00 01:10:00 _Lara [id number] [facility] 2021-06-22 2021-06-22 Outpatient GC_[facility] PRIV PRIV [id number] [facility] 11:11:00 11:11:00 _Lara [id number] [facility] 2021-06-21 2021-06-21 Outpatient GC_SWHAWPRC PRIV PRIV [id number] [facility] 10:38:00 10:38:00 _Lara 110092 [facility] 2021-06-07 2021-06-07 Ancillary Yoselin Francisco RUST 1.2.840 .114 [id number] Univers 08:40:00 09:20:00 Visit Marta Johnson 350.1.13.10 ity [facility] [place].2.[place] [facility] [phone] Wa dical NAL 179 [facility] 2021-06-07 2021-06-[address] [facility] [id number] Univers 08:40:00 08:40:00 MARTA ity of [facility] 2021-06-02 2021-06-02 Ancillary Yoselin Francisco RUST 1.2.840 .114 [id number] Univers 08:00:00 08:40:00 Visit Marta Johnson Mark CHAVIRA 350.1.13.10 ity of [place].2.[place] [phone] Wa dical NAL 179 [facility] 2021-06-01 2021-06-01 Ancillary Korey EbenKimberly RUST 1 .2.840.114 [id number] Univers 08:00:00 10:11:08 Visit Marta Johnson 350.1.13.10 ity of [place].2.[place] [phone] Wa dical NAL 179 [facility] 2021-05-26 2021-05-26 Ancillary Yoselin Francisco RUST 1.2.840 .114 [id number] Univers 08:00:00 08:40:00 Visit Marta Johnson Mark CHAVIRA 350.1.13.10 ity of [place].2.[place] [phone] Wa dical NAL 179 [facility] 2021-05-19 2021-05-[address] [facility] [id number] Univers 09:00:00 13:36:59 MARTA gallo [facility] 2021-05-19 2021-05-19 Ancillary Yoselin Francisco RUST 1.2.840 .114 [id number] Univers 09:00:00 13:36:59 Visit Elizabeth Marta Mark CHAVIRA 350.1.13.10 ity of [place].2.[place] [phone] Wa dical NAL 179 [facility] 2021 2021 Ancillary Yoselin Francisco RUST 1.2.840 .114 [id number] Univers 08:24:27 09:04:27 Visit Marta Johnson 350.1.13.10 ity of [place] [phone] Wa dical NAL [address] [facility] 2021-05-12 2021-05-12 Ancillary Maki Lewis [facility] 1.2. 840.114 [id number] [facility] 09:07:45 09:47:45 Visit Marta Johnson 350.1.13.10 ity of [place].2.[place] [phone] Wa dical NAL 179 [facility] 2021-05-10 2021-05-10 Ancillary Yoselin Francisco [facility] 1.2.840 .114 [id number] [facility] 08:14:36 09:10:52 Visit Marta Johnson 350.1.13.10 ity of [place].2.[place] [phone] Wa dical NAL 179 [facility] 2021-05-04 2021-05-04 Ancillary Yoselin Francisco RUST 1.2.840 .114 [id number] [facility] 09:00:17 09:40:17 Visit Marta Johnson 350.1.13.10 ity of [place].2.[place] [phone] Wa dical NAL 179 [facility] 2021-05-02 2021-05-[address] [facility] [id number] [facility] 09:20:00 10:49:18 MARTA ity of [facility] 2021-05-02 2021-05-02 Ancillary Kimberly Mcgovern RUST 1 .2.840.114 [id number] [facility] 08:55:20 10:49:18 Visit Marta Johnson 350.1.13.10 ity of [place].2.[place] [phone] Wa dical NAL 179 [facility] 2021-04-27 2021-04-27 Ancillary Maki Lewis [facility] 1.2. 840.114 [id number] [facility] 10:25:37 11:05:37 Visit Marta Johnson Mark CARBAJALSOFI 350.1.13.10 ity of [place] 4.[place].2.[place] [phone] Wa dical NAL [address] [facility] 2021-04-26 2021-04-26 Ancillary Yoselin Francisco [facility] 1.2.840 .114 [id number] [facility] 11:21:18 12:01:18 Visit Marta Johnson 350.1.13.10 ity of [place].2.[place] [phone] Wa dical NAL [address] [facility] 2021-04-20 2021-04-20 Ancillary Yoselin Francisco [facility] 1.2.840 .114 [id number] [facility] 08:55:10 09:35:10 Visit Johnson Marta CARBAJALSOFI 350.1.13.10 ity of [place] 4.2.7.2.[place] [phone] Wa dical NAL 179 [facility] 2021-04-13 2021-04-13 Ancillary Yoselin Francisco [facility] 1.2.840 .114 [id number] [facility] 09:00:14 09:40:14 Visit Marta Johnson 350.1.13.10 ity of [place].2.[place] [phone] Wa dical NAL 179 [facility] 2021-04-11 2021-04-11 Ancillary Sandra Thompson [facility] 1.2.840. 114 [id number] [facility] 08:56:10 16:47:24 Visit Marta Johnson 350.1.13.10 ity of [place].2.[place] [phone] Wa dical NAL 179 [facility] 2021-04-08 2021-04-08 Ancillary Lucia Laws [facility] 1.2.84 0.114 [id number] [facility] 08:59:21 09:39:21 Visit Marta Johnson 350.1.13.10 ity of [place] 4[place].2.[place] [phone] Wa dical NAL [address] [facility] 2021-04-06 2021-04-06 Ancillary Yoselin Francisco RUST 1.2.840 .114 [id number] Univers 09:04:55 09:44:55 Visit Marta Johnson 350.1.13.10 ity of [place].2.[place] [phone] Wa dical NAL [address] [facility] 2021-04-04 2021-04-04 Ancillary Lucia Laws RUST 1.2.84 0.114 [id number] [facility] 10:12:57 10:52:57 Visit Marta Johnson 350.1.13.10 ity of [place].2.[place] [phone] Wa dical NAL [address] [facility] 2021-04-01 2021-04-[address] [facility] [id number] [facility] 13:40:00 14:26:09 MARTA ity of [facility] 2021-04-01 2021-04-01 Ancillary Yoselin Francisco RUST 1.2.840 .114 [id number] Univers 13:24:12 14:26:09 Visit Marta Johnson 350.1.13.10 ity of [place].2.[place] [phone] Wa dical NAL [address] [facility] 2021-03-29 2021-03-29 Ancillary Maki Lewis RUST 1.2. 840.114 [id number] Univers 09:07:25 09:47:25 Visit Marta Johnson 350.1.13.10 ity of [place].2.[place] [phone] Wa dical nal 179 [address] [facility] 2021-03-25 2021-03-25 Hospital Elizabeth RUST 1.2.840.114 [id number] Univers 10:25:00 23:59:00 Encounter Marta Flores [facility] 350.1.13.10 ity of [place] 4.2.7.2.686 Guillermo as Oswaldo?Blea [phone] Me dicronaldo rodriguez 809 [facility] Office [facility] 2021-03-25 2021-03-[address] [facility] [id number] Univers 10:45:00 10:45:00 ARLEY ity of [facility] 2021-03-25 2021-03-25 Office Leona RUST 1.2.840.114 [id number] Univers 10:10:35 10:25:35 Visit Arley [facility] 350.1.13.10 it y of [place] 4.2.7.2.686 Guillermo as Oswaldo?Blea [phone] Me jermain rodriguez 198 [facility] Office [facility] 2021-03-17 2021-03-17 Ancillary Sandra Thompson RUST 1.2.840. 114 [id number] Univers 13:26:55 15:19:10 Visit Marta Johnson 350.1.13.10 ity of [place] [phone] Wa dical nal 179 [facility] 2021-03-15 2021-03-15 Ancillary ThompsonSavannahcarl Jeanne RUST 1.2.840. 114 [id number] Univers 13:35:10 14:15:10 Visit Marta Johnson 350.1.13.10 ity of [place].2.[place] [phone] Wa dical nal 179 [facility] 2021-03-10 2021-03-10 Ancillary Viki Willett RUST 1.2.8 40.114 [id number] Univers 13:32:20 14:12:20 Visit Marta Johnson 350.1.13.10 ity of [place].2.[place] [phone] Wa dical nal 179 [facility] 2021-03-08 2021-03-08 Ancillary Kimberly Mcgovern RUST 1 .2.840.114 [id number] Univers 13:38:07 14:18:07 Visit Marta Johnson 350.1.13.10 ity of [place].2.[place] [phone] Wa dical nal [address] Building 2021-03-08 2021-03-08 Transition Venkat Simental 1.2.840.114 [id number] Univers 00:00:00 00:00:00 of Care Jacquie Moralez 350.1.13.10 it y of [place].2.[place] [phone] [facility] [address] 2021-03-07 2021-03-07 Telephone Johnny RUST 1.2.047.312 [id number] Univers 00:00:00 00:00:00 [facility] 350.1.13.10 it y of [place].2.[place] [phone] [facility] Medical [address] Office Building 2021-03-07 2021-03-07 Patient Doctor RONY 1.2.840.114 [id number] Univers 00:00:00 00:00:00 Secure Msg Unassigned, DIANA 350.1.13.10 ity of [place] [facility] 4.2.7.2.686 Guillermo as [phone] [facility] [address] 2021-03-04 2021-03-06 Hospital Jozef Grant RUST 1.2.840.1 14 [id number] Univers 09:31:00 12:57:00 Encounter Colby Monson 350.1.13.10 ity of [place].2.[place] [phone] [facility] [address] 2021-03-01 2021-03-01 Ancillary Viki Willett RUST 1.2.8 40.114 [id number] Univers 14:25:13 15:05:13 Visit Marta Johnson 350.1.13.10 ity of [place].2.[place] [phone] Wa dical nal 179 [facility] 2021-03-01 2021-03-01 Orders Doctor RONY 1.2.840.114 [id number] Univers 00:00:00 00:00:00 Only Unassigned, DIANA 350.1.13.10 ity of [place] [facility] 4.2.7.2.686 Guillermo as [phone] [facility] [address] 2021-02-24 2021-02-24 [facility] 1.2.840.114 [id number] Univers 10:19:44 10:34:44 Visit Arley [facility] 350.1.13.10 it y of [place] 4.2.7.2.686 Guillermo as Oswaldo?Blea [phone] Wa dical kney 198 [facility] Office [facility] 2021-02-24 2021-02-[address] [facility] [id number] Univers 10:30:00 10:30:00 ARLEYTREV gallo [facility] 2021-02-22 2021-02-22 Ancillary Yoselin Francisco RUST 1.2.840 .114 [id number] Univers 13:03:21 14:22:13 Visit Marta Johnson 350.1.13.10 ity of [place] [phone] Wa dical nal 179 [facility] 2021-02-13 2021-02-13 Emergency [facility] 1.2.840.114 [id number] Univers 13:21:00 13:40:00 Светлана Chavira 350.1.13.10 ity of [place] 4.[place].2.[place] [phone] [facility] [address] 2021-02-10 2021-02-[address] [facility] [id number] Univers 15:50:00 15:50:00 GO gallo [facility] 2021-02-10 2021-02-10 Imm/Inj Nurse, Adc Pob Immunization RUST 1.2.840.114 [id number] Univers 14:30:28 14:30:37 Visit Go Singer 350.1.13 .10 ity of [place] 4.2.7.2.[place] [phone] Wa dical nal 421 [facility] 2021-02-10 2021-02-10 Ancillary Maki Lewis [facility] 1.2. 840.114 [id number] Univers 13:41:23 14:21:23 Visit Marta Johnson 350.1.13.10 ity of [place] 4.2.[place].2.[place] [phone] Wa dical nal [address] Building 2021-02-09 2021-02-09 Ancillary Maki Lewis [facility] 1.2. 840.114 [id number] Univers 13:04:52 13:44:52 Visit Marta Johnson 350.1.13.10 ity of [place] 4.2.[place].2.[place] [phone] Wa dical nal [address] [facility] 2021-02-03 2021-02-03 Ancillary Yoselin Francisco [facility] 1.2.840 .114 [id number] Univers 13:41:56 14:24:39 Visit Marta Johnson 350.1.13.10 ity of [place] 4.2.[place].2.[place] [phone] Wa dical nal [address] [facility] 2021-02-03 2021-02-[address] [facility] [id number] Univers 13:40:00 13:40:00 ity of [facility] 2021-02-01 2021-02-01 Ancillary Maki Lewis RUST 1.2. 840.114 [id number] Univers 14:12:47 14:52:47 Visit Marta Johnson 350.1.13.10 ity of [place] 4.[place].2.[place] [phone] Wa dical nal [address] Building 2021-01-27 2021-01-27 Ancillary Viki [place] 1.2.840. 114 [id number] Univers 12:58:46 13:42:22 Visit Marta Johnson 350.1.13.10 ity of [place] 4.[place].2.[place] [phone] Wa dical nal [address] Building 2021-01-27 2021-01-27 [facility] [id number] Univers 13:00:00 13:00:00 MARTA gallo [facility] 2021-01-24 2021-01-24 [facility] [id number] Univers 13:45:00 13:45:00 MARTA gallo [facility] 2021-01-10 2021-01-10 Hospital [facility] 1.2.840.114 [id number] Univers 13:54:40 23:59:00 Encounter Marta Chavira 350.1.13.10 ity of [place] [phone] [facility] [address] 2021-01-10 2021-01-10 Office [facility] 1.2.277.432 [id number] Univers 14:27:04 15:14:37 Visit Marta Buckley 350.1.13.10 it y of Surgical 4.2.7.2.686 Guillermo as Specialti [phone] Wa dical es 198 [facility] 2021-01-10 2021-01-10 [facility] [id number] Univers 14:45:00 14:45:00 MARTA gallo [facility] 2021-01-10 2021-01-10 Telephone [facility] 1.2.840.114 [id number] Univers 00:00:00 00:00:00 Marta Buckley 350.1.13.10 it y of Surgical 4.2.7.2.686 Guill[place] as Specialti [phone] Wa dical es 198 [facility] 2021-01-10 2021-01-10 Orders Doctor RONY 1.2.840.114 [id number] Univers 00:00:00 00:00:00 Only Unassigned, DIANA 350.1.13.10 ity of [place] [facility] 4.2.7.2.686 Guillermo as [phone] [facility] [address] 2020-12-31 2020-12-31 Transition Venkat Simental 1.2.840.114 [id number] Univers 00:00:00 00:00:00 of Tesha Gibbonsy 350.1.13.10 [place] [phone] [facility] [address] 2020-12-27 2020-12-30 Hospital Marta Johnson RUST 1.2.840 .114 [id number] Univers 06:41:00 15:15:00 Encounter Arley Delgadillo 350.1.13.10 ity of [place] 4.2.[place].2.[place] [phone] [facility] [address] 2020-12-27 2020-12-27 Surgery [facility] 1.2.811.053 [id number] Univers 07:30:00 10:23:00 Marta Chavira 350.1.13.10 i ty of [place].2.[place] Surgical [phone] [facility] [address] 2020-12-27 2020-12-27 Orders Doctor RONY 1.2.840.114 [id number] Univers 00:00:00 00:00:00 Only Unassigned, DIANA 350.1.13.10 ity of [place] [facility] 4.2.7.2.686 Guillermo as [phone] [facility] [address] 2020-12-24 2020-12-24 [facility] 1.2.840.114 [id number] Univers 09:29:32 23:59:00 Encounter Marta Chavira 350.1.13.10 ity of [place] 4.2.[place].2.[place] [phone] [facility] [address] 2020-12-24 2020-12-24 Skin Installer Rufus Gil [facility] RUST 1.2.8 40.114 [id number] Univers 09:28:46 09:43:46 Visit Marta Johnson 350.1.13.10 ity of [place] [phone] Wa dical nal [address] [facility] 2020-12-24 2020-12-24 [facility] [id number] Univers 08:45:00 08:45:00 MARTA gallo [facility] 2020-12-23 2020-12-[address] [id number] Univers 13:00:00 13:00:00 MARTA gallo [facility] 2020-12-22 2020-12-[address] [facility] [id number] Univers 09:45:00 09:45:00 MARTA gallo [facility] 2020-12-22 2020-12-22 Skin Installer Jeffery, Rufus Lab Main RUST 1.2.8 40.114 [id number] Univers 09:28:20 09:43:20 Visit Marta Johnson 350.1.13.10 ity of [place] 4.[place] [phone] Wa dical nal [address] [place] [address] 2020-12-22 2020-12-22 Orders Doctor RONY 1.2.840.114 [id number] Univers 00:00:00 00:00:00 Only Unassigned, DIANA 350.1.13.10 ity of [place] [facility] 4.2.7.2.686 Guillermo as [phone] [address] 2020-12-20 2020-12-20 Prep For Elizabeth RUST 1.2.840.114 [id number] Univers 00:00:00 00:00:00 Surgery Marta Flores [facility] 350.1.13.10 it y of Surgical 4.2.7.2.686 Guillermo as Specialti [phone] Wa dical es 198 [facility] 2020-12-16 2020-12-16 Office Leona RUST 1.2.840.114 [id number] Univers 13:40:52 13:55:52 Visit Arley [facility] 350.1.13.10 it y of Surgical 4.2.7.2.686 Guillermo as Specialti [phone] Wa dical es 198 [facility] 2020-12-16 2020-12-[address] [facility] [id number] Univers 13:45:00 13:45:00 ARLEY mohrcarl [facility] 2020-12-16 2020-12-[address] [facility] [id number] Univers 13:45:00 13:45:00 ARLEY gallo [facility] 2020-11-22 2020-11-22 Outpatient [facility] [id number] Univers 16:15:00 16:15:00 MARTA gallo [facility] 2020-11-22 2020-11-22 [facility] 1.2.621.568 [id number] Univers 15:17:32 15:56:16 Visit Marta Flores [facility] 350.1.13.10 it y of Surgical 4.2.7.2.686 Guillermo as Specialti [phone] Wa dical es 198 [facility] 2020-09-16 2020-09-16 Outpatient [facility] PRIV PRIV [id number] [facility] 11:38:00 11:38:00 _Lara [id number] [facility] 2020-09-14 2020-09-14 Outpatient [facility] PRIV PRIV [id number] [facility] 01:43:00 01:43:00 _Lara [id number] [facility] 2020-09-14 2020-09-14 [facility] [id number] [facility] 00:00:00 00:00:00 [facility] - [facility] MD wai: _[address], [address], [place] [address] , Ph. 2020-09-14 2020-09-14 Outpatient [facility] PRIV [id number] 00:00:00 00:00:00 Tootie tong [id number] [facility] [id number] 2020-08-31 2020-08-31 Office Leona RUST [id number] Univers 09:45:50 10:00:50 Visit Arley Tong [facility] [id number] it y of Surgical 4.2.7.2.686 Guillermo as Specialti [phone] [place]ical [place] [facility] 2020-08-31 2020-08-31 [facility] [id number] Univers 10:00:00 10:00:00 ARLEY cloe [facility] 2020-08-16 2020-08-16 [facility] [id number] Univers 13:36:09 14:33:13 Visit Marta Buckley [id number] it y of Surgical 4.2.7.2.686 Guillermo as Specialti [phone] [place] dical es [facility] 2020-08-16 2020-08-16 [facility] [id number] Univers 14:00:00 14:00:00 MARTA gallo [facility] 2020-08-16 2020-08-16 [facility]phone [facility] [id number] Univers 00:00:00 00:00:00 Marta Chavira [id number] i [place] [employer] [place] [facility] [phone] [place] dical nal 198 [facility] 2020-08-13 2020-08-13 [facility]phone [facility] [id number] Univers 00:00:00 00:00:00 Marta Buckley [id number] it y of Surgical 4.2.7.2.686 Guillermo as Specialti [phone] [place] 198 [facility] 2020-08-12 2020-08-12 Emergency [facility] [id number] Univers 16:16:00 18:33:00 Adwoasven Chavira 350.1.13.10 [place] [employer] [place] [phone] [facility] [address] 2020-08-12 2020-08-12 Orders Doctor RONY 1.2.840.114 [id number] Univers 00:00:00 00:00:00 Only Unassigned, DIANA 350.1.13.10 ity of [facility] 4.2.7.2.686 Guillermo as [phone] [facility] [address] 2020-06-02 2020-06-02 Office [facility] [id number] Univers 13:10:39 13:46:45 Visit Marta Buckley 350.1.13.10 it y of Surgical 4.2.7.2.686 Guillermo as Specialti [phone] Wa jermain es 198 [facility] 2020-06-02 2020-06-02 [facility] [id number] Univers 13:30:00 13:30:00 MARTA gallo [facility] 2020-06-01 2020-06-01 Outpatient R [facility] [facility] [id number] Univers 14:21:09 23:59:00 MARTA gallo [facility] 2020-06-01 2020-06-01 [facility] 1.2.840.114 [id number] Univers 14:21:09 23:59:00 Encounter Marta Chavira 350.1.13.10 ity of [place] [phone] [facility] [address] [place] [address] 2020-05-07 2020-05-07 Office [facility] [id number] Univers 08:18:47 09:19:17 Visit Marta Flores [facility] 350.1.13.10 it y of Surgical 4.2.7.2.686 Guillermo as Specialti [phone] [facility] es [facility] 2020-05-07 2020-05-07 Outpatient [facility] [id number] Univers 08:30:00 08:30:00 MARTA gallo [facility] 2020-05-07 2020-05-07 Telephone [facility] 1.2.840.114 [id number] Univers 00:00:00 00:00:00 Marta Flores [facility] 350.1.13.10 it y of Surgical 4.2.7.2.686 [place] as Specialti [phone] [place] [facility] 2020-03-25 2020-03-25 Telephone [facility] 1.2.338.090 [id number] Univers 00:00:00 00:00:00 Arley S [facility] 350.1.13.10 it y of Surgical 4.2.7.2.686 [place] as Specialti [phone] [place] [facility] 2020-03-15 2020-03-[address] [facility] [id number] Univers 16:00:00 16:00:00 MARTA gallo [facility] 2020-03-15 2020-03-15 Office Arley Delgadillo [facility] 1.2.840.114 [id number] Univers 15:44:53 15:59:53 Visit Marta Johnson [facility] 350.1.13.10 ity of Surgical 4.2.7.2.686 [place] as Specialti [phone] [place] [facility] 2020-02-26 2020-02-26 Hospital Elizabeth [facility] 1.2.840.114 [id number] Univers 14:09:46 23:59:00 Encounter Marta Flores [facility] 350.1.13.10 ity of Surgical 4.2.7.2.686 [place] as Specialti [phone] [place] [facility] 2020-02-26 2020-02-26 Office Elizabeth [facility] 1.2.457.448 [id number] Univers 13:13:37 15:25:31 Visit Marta Flores [facility] 350.1.13.10 it y of Surgical 4.2.7.2.686 [place] as Specialti [phone] [place] [facility] 2020-02-26 2020-02-[address] [facility] [id number] Univers 13:30:00 13:30:00 MARTA gallo [facility] 2020-02-26 2020-02-26 Orders Doctor URIBE 1.2.840.114 [id number] Univers 00:00:00 00:00:00 Only Unassigned, DIANA 350.1.13.10 ity of [facility] 4.2.7.2.686 Guillermo as [phone] [address] 2019-08-13 2019-08-13 Outpatient R [facility] [id number] Univers 13:40:00 13:40:00 MARTA gallo [facility] 2019-07-17 2019-08-12 Ancillary Yoselin Francisco [facility] 1.2.840 .114 [id number] Univers 14:12:49 16:34:23 Visit Johnson, Marta Chavira 350.1.13.10 ity of [place] [phone] [place] [address] [facility] 2019-07-17 2019-08-12 Ancillary Nolan [facility] 1.2.360.996 [id number] 14:12:49 16:34:23 Visit Yoselin Chaviar 350.1.13.10 [place] 4.2.7.2.686 Professio [phone] [address] 2019-07-29 2019-07-[address] [facility] [id number] Univers 13:00:00 13:00:00 MARTA ity [facility] 2019-07-23 2019-07-23 Ancillary Yoselin Francisco [facility] 1.2.840 .114 [id number] Univers 13:39:15 14:19:15 Visit Marta Jonhson 350.1.13.10 ity of [place] [phone] [place] [address] [facility] 2019-07-21 2019-07-21 Office Elizabeth [facility] 1.2.214.365 [id number] Univers 15:36:27 16:19:42 Visit Marta Mark [facility] 350.1.13.10 it y of Surgical 4.2.7.2.686 [place]ill[place] as Specialti [phone] [place]ical es [facility] 2019-07-15 2019-07-15 Ancillary Yoselin Francisco [facility] 1.2.840 .114 [id number] Univers 14:12:07 14:52:07 Visit Marta Johnson 350.1.13.10 it[place] [phone] [place] [address] [facility] 2019-07-10 2019-07-10 Ancillary Yoselin Francisco [facility] 1.2.840 .114 [id number] Univers 13:01:35 13:41:35 Visit Marta Johnson 350.1.13.10 it[place] of [place] [phone] [place] [address] [facility] 2019-07-08 2019-07-08 Ancillary Jose Francisco [facility] 1.2.840. 114 [id number] [facility] 15:31:30 16:33:27 Visit Marta Johnson 350.1.13.10 it[place] [phone] [place] [address] [facility] 2019-07-03 2019-07-03 Ancillary Yoselin Francisco [facility] 1.2.840 .114 [id number] [facility] 13:04:32 13:49:32 Visit Marta Johnson 350.1.13.10 it[place] [phone] [place]al [address] [facility] 2019-06-19 2019-06-19 Ancillary Yoselin Francisco [facility] 1.2.840 .114 [id number] [facility] 13:53:57 14:38:57 Visit Marat Johnson 350.1.13.10 it[place] of [place] [phone] [place] [address] [facility] Results Test Description Test Time Test Comments Results Result [facility] e Comments NM Brain Spect W PROCEDURE: DC BRAIN Restorationist I 123 Datscan [facility] 21:51:36 INDICATION: Parkinson's disease. COMPARISON: No relevant comparison imaging. TECHNIQUE: The patient was pretreated with potassium iodide drops for thyroid protection and then injected with 4 mCi of I-123 DaTscan IV. Brain SPECT imaging was then performed. FINDINGS: Right posterior striatal uptake appears borderline reduced. Left-sided uptake appears normal. IMPRESSION: 1. Borderline abnormal study, which could reflect an early/mild primary parkinsonian syndrome in the appropriate clinical setting. Unilateral findings could also reflect sequela of prior ischemia or a structural lesion in the right putamen. Suggest correlation with MRI of the brain, as appropriate. [id number] - XR FLUORO FOR SPINE INJ 4 15:23:00 [facility] 1935 Sex: F Patient Name: KD DIGGS Unit No: [id number] EXAMS: CPT CODE: [id number] XR FLUORO FOR SPINE INJ 18136 LUMBAR EPIRADICULAR INJECTION PREOPERATIVE DIAGNOSIS: Lumbar Radiculitis [...] 2 at 1523 Reported and signed by: ADONIS FARAH MD CC: Suman Harris MD Technologist: YASIR SPICER ARRT Transcribed D/ (152) Ally [facility] [place] NAME: KD DIGGS [address] [facility] PHYS: Suman Santos MD [place], [place] [address] : 1935 AGE: 87 SEX: F LOC: MAME PHONE #: [phone] EXAM DATE: 03/07/2023 STATUS: REG [facility] FAX #: [phone] RAD #: D/C DT PAGE 1 Signed Report Patient Name: KD DIGGS Unit No: [id number] EXAMS: CPT CODE: [id number] XR FLUORO FOR SPINE INJ 71452 (Continued) Orig Print D/T: S: 03/07/2023 (152) [facility] [place] NAME: KD DIGGS [address] [facility] PHYS: Suman Santos MD [place], [place] [address] : 1935 AGE: 87 SEX: F LOC: MAME PHONE #: [phone] EXAM DATE: 03/07/2023 STATUS: REG [facility] FAX #: [phone] RAD #: D/C DT PAGE 2 Signed Report GLUBED 2023-03-07 14:14:00 Test Item Value Reference Range Interpretation Comme nts GLUBED (test code = GLUBED) 108 mg/dL 60-99 H The normal fasting blood glucose range for a non-diabe ticadult is 60-99 mg/dL. Two hours after meals, normal blood glucose levels should beless than 140 mg/dL.Please no te new normal range. [id number] 14:32:00 Test Item Value Reference Range Interpretation Comments GLUBED (test code = GLUBED) 97 mg/dL 60-125 N - XR FLUORO FOR SPINE [id number] 09:07:00 [facility] 1935 Sex: F PatientName: KD DIGGS Unit No: [id number] EXAMS: CPT CODE: [id number] XR FLUORO FOR SPINE INJ 48521 LUMBAR EPIRADICULAR INJECTION PREOPERATIVE DIAGNOSIS: Lumbar Radiculitis POSTOPERATIVE DIAGNOSIS: Same as above PROCEDURES PERFORMED: Fluoroscopically guided needle localization [...] of intravascular or intrathecal uptake. Bupivicaine 0.75% 0 .25 mL with lidocaine 4% 0.5 mL and Decadron 5 mg was then incrementally injected with frequent negative aspirations at each level and again there were no signs of intravascular or intrathecal uptake. The needles were removed and the patient was taken to the PACU in good condition. Image: Image 1 El ectronically Signed by ADONIS FARAH MD on 01/08/2023 at 0907 Reported and signed by: ADONIS FARAH MD CC: Sumna Harris MD Technologist: RENÉ DUMONT MRI Transcribed D/ (0907) Ally [facility] [place] NAME: KD DIGGS [address] [facility] PHYS: Suman Santos MD [place], [place] [address] : 1935 AGE: 87 SEX: F LOC: MAME PHONE #: [phone] EXAM DATE: 01/08/2023 STATUS: REG [facility] FAX #: [phone] RAD #: D/C DT PAGE 1 Signed Report Patient Name: KD DIGGS Unit No: [id number] EXAMS: CPT CODE: [id number] XR FLUORO FOR SPINE INJ 92703 (Continued) Orig Print D/T: S: 01/08/2023 (0910) [facility] [place] NAME: KD DIGGS [address] [facility] PHYS: Suman Santos MD [place], [place] [address] : 1935 AGE: 87 SEX: F LOC: MAME PHONE #: [phone] EXAM DATE: 01/08/2023 STATUS: REG [place] FAX #: [phone] RAD #: D/C DT PAGE 2 Signed [id number] 08:52:00 Test Item Value Reference Range Interpretation Comments GLUBED (test code = GLUBED) 111 mg/dL 60-125 N
[2023-04-29] MEDS ORDERED: DIAZEPAM 5 MG TABLET ONE (14:12)
[2023-04-29] MEDS ORDERED: HYDROMORPHONE HCL 1 MG/ML INJ ONE (14:12)
[2023-04-29] MEDS ORDERED: NA CHLORIDE 0.9% 500 ML ONE (14:13)
[2023-04-29] MEDS ORDERED: ONDANSETRON 4 MG/2 ML VIAL ONE (14:13)
[2023-04-29] MEDS ORDERED: dexAMETHasone 10 MG/ML VIAL ONE (14:13)
[2023-04-29] MEDS ORDERED: KETOROLAC 30 MG/ML INJ ONE (14:13)
[2023-04-29 14:21] LABS: Absolute Lymphocytes (CBC) 1.8 K/uL (0.7-4.9); Hematocrit 34.1 % (36.0-45.0); Lymphocytes % 32.9 % (15.3-44.8); MCV 92.6 fL (80-100); MPV 7.1 fL (7.6-11.3); Platelets 197 thou/uL (152-406); RBC Red Blood Cell Count 3.68 M/uL (3.86-4.86)
[2023-04-29 14:39] LABS: Bilirubin Total 0.5 mg/dL (0.2-1.0); Potassium 3.4 mEq/L (3.5-5.1); Protein, Total 5.8 g/dL (6.4-8.2)
--- NOTE | 2023-04-29 15:05 | EDPHYS ---
Physician Documentation [facility] Name: Yady Diggs Age: 87 yrs Sex: Female : 1935 Arrival Date: 04/29/2023 Time: 12:48 Bed 19 Private MD: Lula Pena C ED Physician Gio Betancourt HPI: 04/29 14:26 This 87 yrs old Female presents to ER via EMS with complaints of Back Pain. thania 14:26 The patient presents with pain that is acute, that is chronic, and decreased range of thania motion. The symptoms are located in the low back, lumbar area, left low back and right low back. Onset: The symptoms/episode began/occurred 5 day(s) ago. The pain radiates to the left low back and right low back. Associated signs and symptoms: The patient has no apparent associated signs or symptoms. Modifying factors: The patient symptoms are alleviated by remaining still, the patient symptoms are aggravated by any movement, bending, standing, supine position. Severity of symptoms: At their worst the symptoms were moderate, in the emergency department the symptoms are unchanged. The patient has experienced similar episodes in the past, multiple times. Historical: - Allergies: 12:57 adhesive tape; ko1 12:57 Iodine; ko1 12:57 Morphine; ko1 - Home Meds: 12:57 Advair Diskus 250-50 mcg/dose Inhl Blister 1 inhalation 2 times per day [Active]; ko1 carvedilol 6.25 mg Oral tablet 2 times per day [Active]; cephalexin 250 mg Oral tablet daily [Active]; dorzolamide 2 % ophthalmic (eye) drops 1 drop twice a day [Active]; hydralazine 10 mg Oral tablet 2 times per day [Active]; latanoprost 0.005 % ophthalmic (eye) drops 1 drop every evening [Active]; gabapentin 600 mg Oral tablet 1 tab 3 times per day [Active]; levothyroxine 25 mcg capsule daily [Active]; omeprazole 20 mg Oral capsule daily [Active]; amitriptyline 10 mg Oral tablet 1 tab every day at bedtime [Active]; All Day Allergy (cetirizine) 10 mg Oral capsule daily [Active]; primidone 50 mg Oral tablet 0.5 tab every day at bedtime [Active]; atorvastatin 20 mg Oral tablet daily [Active]; trazodone 50 mg Oral tablet 0.5 tabs every day at bedtime [Active]; - PMHx: 12:57 diabetes mellitus; GERD; High Cholesterol; Hypertension; Hypothyroidism; Glaucoma; ko1 neuropathy; - PSHx: 12:57 Appendectomy; section; Cholecystectomy; hysterectomy; Tonsillectomy; ko1 - Immunization history:: Adult Immunizations unknown. - Social history:: Smoking status: Patient denies any tobacco usage or history of. - Family history:: not pertinent. ROS: 14:27 Constitutional: Negative for fever, chills, and weight loss, Eyes: Negative for injury, thania pain, redness, and discharge, ENT: Negative for injury, pain, and discharge, Neck: Negative for injury, pain, and swelling, Cardiovascular: Negative for chest pain, palpitations, and edema, Respiratory: Negative for shortness of breath, cough, wheezing, and pleuritic chest pain, Abdomen/GI: Negative for abdominal pain, nausea, vomiting, diarrhea, and constipation, : Negative for injury, bleeding, discharge, and swelling, MS/Extremity: Negative for injury and deformity, Skin: Negative for injury, rash, and discoloration, Neuro: Negative for headache, weakness, numbness, tingling, and seizure, Psych: Negative for depression, anxiety, suicide ideation, homicidal ideation, and hallucinations, Allergy/Immunology: Negative for hives, rash, and allergies, Endocrine: Negative for neck swelling, polydipsia, polyuria, polyphagia, and marked weight changes, Hematologic/Lymphatic: Negative for swollen nodes, abnormal bleeding, and unusual bruising, 14:27 Back: Positive for pain at rest, pain with movement, of the lumbar area, low back area and left low back, Exam: 14:27 Constitutional: This is a well developed, well nourished patient who is awake, alert, thania and in no acute distress. Head/Face: Normocephalic, atraumatic. Eyes: Pupils equal round and reactive to light, extra-ocular motions intact. Lids and lashes normal. Conjunctiva and sclera are non-icteric and not injected. Cornea within normal limits. Periorbital areas with no swelling, redness, or edema. ENT: Nares patent. No nasal discharge, no septal abnormalities noted. Tympanic membranes are normal and external auditory canals are clear. Oropharynx with no redness, swelling, or masses, exudates, or evidence of obstruction, uvula midline. Mucous membranes moist. Neck: Trachea midline, no thyromegaly or masses palpated, and no cervical lymphadenopathy. Supple, full range of motion without nuchal rigidity, or vertebral point tenderness. No Meningismus. Chest/axilla: Normal chest wall appearance and motion. Nontender with no deformity. No lesions are appreciated. Cardiovascular: Regular rate and rhythm with a normal S1 and S2. No gallops, murmurs, or rubs. Normal PMI, no JVD. No pulse deficits. Respiratory: Lungs have equal breath sounds bilaterally, clear to auscultation and percussion. No rales, rhonchi or wheezes noted. No increased work of breathing, no retractions or nasal flaring. Abdomen/GI: Soft, non-tender, with normal bowel sounds. No distension or tympany. No guarding or rebound. No evidence of tenderness throughout. Female : Normal external genitalia. Skin: Warm, dry with normal turgor. Normal color with no rashes, no lesions, and no evidence of cellulitis. MS/ Extremity: Pulses equal, no cyanosis. Neurovascular intact. Full, normal range of motion. Neuro: Awake and alert, GCS 15, oriented to person, place, time, and situation. Cranial nerves II-XII grossly intact. Motor strength 5/5 in all extremities. Sensory grossly intact. Cerebellar exam normal. Normal gait. Psych: Awake, alert, with orientation to person, place and time. Behavior, mood, and affect are within normal limits. 14:27 Back: pain, that is moderate, of the lumbar area, left low back and right low back, normal spinal alignment noted, CVA tenderness, is absent, vertebral tenderness, is not appreciated, muscle spasm, is appreciated in the left low back, left mid back, right mid back and right low back, Vital Signs: 12:55 BP 141 / 78; Pulse 76; Resp 15; Temp 97; Pulse Ox 95% on R/A; ko1 13:00 BP 130 / 87; Pulse 74; Resp 15; Pulse Ox 99% on R/A; ko1 13:30 BP 139 / 7; Pulse 78; Resp 18; Pulse Ox 98% ; ko1 14:30 BP 151 / 68; Pulse 70; Resp 16; Pulse Ox 97% ; ko1 15:15 BP 153 / 64; Pulse 78; Resp 15; Pulse Ox 97% ; ko1 MDM: 12:56 Patient medically screened. thania 14:57 Differential diagnosis: Fatigue Fracture Myeloma Osteoarthritis Osteoporosis ruptured thania disc, sprain, Ureterolithiasis vertebral fracture. Data reviewed: vital signs, nurses notes, lab test result(s), radiologic studies, MRI. Consideration of Admission/Observation Escalation of care including admission/observation considered. I considered the following discharge prescriptions or medication management in the emergency department Medications were administered in the Emergency Department. See MAR. Independent interpretation of the following test(s) in the Emergency Department MRI: My interpretation is MRI REVIEWED. Historians other than the Patient: Spouse/Significant Other: . Care significantly affected by the following chronic conditions: Diabetes, Hypertension, HYPOTHYROID, HIGH CHOLESTEROL, GERD. 04/29 13:55 Order name: CBC with Diff; Complete Time: 14:57 thania 04/29 13:55 Order name: Comprehensive Metabolic Panel; Complete Time: 14:57 thania Administered Medications: 14:15 Drug: NS 0.9% IV 500 ml IV at bolus once Route: IV; Rate: bolus; Site: right ko1 antecubital; 14:15 Drug: Diazepam PO 5 mg PO once Route: PO; ko1 14:15 Drug: Ondansetron IVP 4 mg IVP once; over 2 minutes Route: IVP; Site: right antecubital;ko1 14:18 Drug: Ketorolac IVP 15 mg IVP once Route: IVP; Site: right antecubital; ko1 14:19 Drug: Decadron - Dexamethasone IVP 10 mg IVP once Route: IVP; Site: right antecubital; ko1 14:19 Drug: HYDROmorphone IVP 1 mg IVP once Route: IVP; Site: right antecubital; ko1 15:04 Drug: Potassium PO Effervescent Tablet 25 mEq PO once; dissolve in 4 ounces of water or ll1 juice Route: PO; Disposition Summary: 04/29/23 15:04 Discharge Ordered Notes: Location: Home thania Problem: new thania Symptoms: have improved thania Condition: Stable thania Diagnosis - Low back pain thania - Sciatica thania - Other intervertebral disc degeneration, lumbar region thania Followup: thaina - With: Lula Pena MD - When: 2 - 3 days - Reason: Recheck today's complaints, Continuance of care, Re-evaluation by your physician Discharge Instructions: - Discharge Summary Sheet thania - Acute Back Pain, Adult thania - Chronic Back Pain thania - Acute Back Pain, Pediatric [facility] - Musculoskeletal Pain thania - Chronic Back Pain, Hupp-[id number]-Guwo [facility] Forms: - Medication Reconciliation Form [facility] - Thank You Letter thania - Antibiotic Education thania - Prescription Opioid Use [facility] - Patient Portal Instructions [facility] - Leadership Thank You Letter [facility] Prescriptions: - acetaminophen-codeine 300-30 mg Oral tablet - take 1 tablet ORAL route every 4-6 hours as needed for pain; 20 tablet; thania Refills: 0, Product Selection Permitted - dexamethasone 2 mg Oral tablet - take 1 tablet ORAL route every 12 hours; 10 tablet; Refills: 0, Product [facility] Selection Permitted - diclofenac sodium 75 mg Oral tablet, delayed release (enteric coated) - take 1 tablet ORAL route 3 times per day; 21 tablet; Refills: 0, Product [facility] Selection Permitted - Cyclobenzaprine 5 mg Oral Tablet - take 1 tablet ORAL route 3 times per day As needed; 15 tablet; Refills: 0, [facility] Product Selection Permitted Signatures: Dispatcher [employer] Gio Randall MD MD cha Lewis, Lynsay, RN RN ll1 Shilpa Blake RN RN ko1
--- NOTE | 2023-04-29 15:05 | ER ---
Nurse's Notes [facility] Name: Yady Diggs Age: 87 yrs Sex: Female : 1935 Arrival Date: 04/29/2023 Time: 12:48 Bed 19 Private MD: Lula Pena C Diagnosis: Low back pain;Sciatica;Other intervertebral disc degeneration, lumbar region Presentation: 04/29 12:55 Chief complaint: EMS states: patient called due to sciatic back pain that has been ko1 going on for a year but over the last month has gotten worse and she couldn't get out of bed today. Coronavirus screen: At this time, the client does not indicate any symptoms associated with coronavirus-19. Ebola Screen: No symptoms or risks identified at this time. Initial Sepsis Screen: Does the patient meet any 2 criteria? No. Patient's initial sepsis screen is negative. Does the patient have a suspected source of infection? No. Patient's initial sepsis screen is negative. Risk Assessment: Do you want to hurt yourself or someone else? Patient reports no desire to harm self or others. Onset of symptoms is unknown. Care prior to arrival: Medication(s) given: zofran 4 mg, IV initiated. 20 GA, in the right antecubital area, Glucose check: 154. 12:55 Method Of Arrival: EMS: [facility] ko1 12:55 Acuity: NILAY 3 ko1 Triage Assessment: 12:57 General: Appears in no apparent distress. uncomfortable, Behavior is calm, cooperative, ko1 appropriate for age. Pain: Complains of pain in back. Musculoskeletal: Circulation, motion, and sensation intact. Range of motion: intact in all extremities. Historical: - Allergies: 12:57 adhesive tape; ko1 12:57 Iodine; ko1 12:57 Morphine; ko1 - Home Meds: 12:57 Advair Diskus 250-50 mcg/dose Inhl Blister 1 inhalation 2 times per day [Active]; ko1 carvedilol 6.25 mg Oral tablet 2 times per day [Active]; cephalexin 250 mg Oral tablet daily [Active]; dorzolamide 2 % ophthalmic (eye) drops 1 drop twice a day [Active]; hydralazine 10 mg Oral tablet 2 times per day [Active]; latanoprost 0.005 % ophthalmic (eye) drops 1 drop every evening [Active]; gabapentin 600 mg Oral tablet 1 tab 3 times per day [Active]; levothyroxine 25 mcg capsule daily [Active]; omeprazole 20 mg Oral capsule daily [Active]; amitriptyline 10 mg Oral tablet 1 tab every day at bedtime [Active]; All Day Allergy (cetirizine) 10 mg Oral capsule daily [Active]; primidone 50 mg Oral tablet 0.5 tab every day at bedtime [Active]; atorvastatin 20 mg Oral tablet daily [Active]; trazodone 50 mg Oral tablet 0.5 tabs every day at bedtime [Active]; - PMHx: 12:57 diabetes mellitus; GERD; High Cholesterol; Hypertension; Hypothyroidism; Glaucoma; ko1 neuropathy; - PSHx: 12:57 Appendectomy; section; Cholecystectomy; hysterectomy; Tonsillectomy; ko1 - Immunization history:: Adult Immunizations unknown. - Social history:: Smoking status: Patient denies any tobacco usage or history of. - Family history:: not pertinent. Screenin:59 [facility] ED Fall Risk Assessment (Adult) History of falling in the last 3 months, ko1 including since admission No falls in past 3 months (0 pts) Confusion or Disorientation No (0 pts) Intoxicated or Sedated No (0 pts) Impaired Gait No (0 pts) Mobility Assist Device Used No (0 pt) Altered Elimination No (0 pt) Score/Fall Risk Level 0 - 2 = Low Risk Oriented to surroundings, Maintained a safe environment, Educated pt \T\ family on fall prevention, incl call for assistance when getting out of bed, Assessed \T\ reinforced patient's understanding of fall precautions, Provided non-skid footwear, Hourly rounding (assess needs \T\ fall precautionary measures) done, Used ambulatory aids as needed (educated on \T\ assisted with). Abuse screen: Denies threats or abuse. Denies injuries from another. Nutritional screening: No deficits noted. Tuberculosis screening: No symptoms or risk factors identified. Assessment: 12:59 Neuro: No deficits noted. Neuro: Weathers Agitation-Sedation Scale (RASS): 0 - Alert ko1 and Calm Level of Consciousness is awake, alert, obeys commands, Oriented to Appropriate for age. Cardiovascular: No deficits noted. Respiratory: No deficits noted. GI: No deficits noted. : No deficits noted. EENT: No deficits noted. Derm: No deficits noted. Musculoskeletal: Reports pain in back. Vital Signs: 12:55 BP 141 / 78; Pulse 76; Resp 15; Temp 97; Pulse Ox 95% on R/A; ko1 13:00 BP 130 / 87; Pulse 74; Resp 15; Pulse Ox 99% on R/A; ko1 13:30 BP 139 / 7; Pulse 78; Resp 18; Pulse Ox 98% ; ko1 14:30 BP 151 / 68; Pulse 70; Resp 16; Pulse Ox 97% ; ko1 15:15 BP 153 / 64; Pulse 78; Resp 15; Pulse Ox 97% ; ko1 ED Course: 12:52 Patient arrived in ED. as 12:52 Lula Pena MD is Private Physician. as 12:54 Shilpa Blake, JAM is Primary Nurse. ko1 12:56 Gio Betancourt MD is Attending Physician. thania 12:57 Triage completed. ko1 12:57 Arm band placed on right wrist. Patient placed in an exam room, on a stretcher, on ko1 pulse oximetry, Patient notified of wait time. 12:59 Patient has correct armband on for positive identification. Allergy band placed. Bed in ko1 low position. Call light in reach. Side rails up X2. Provided Education on: na. Pulse ox on. NIBP on. Door closed. Noise minimized. Visitors limited. Warm blanket given. 12:59 Maintain EMS IV. Dressing intact. Good blood return noted. Site clean \T\ dry. Gauge \T\ ko 1 site: 20g right AC. 14:15 Comprehensive Metabolic Panel Sent. ko1 14:15 CBC with Diff Sent. ko1 15:04 Lula Pena MD is Referral Physician. thania 15:15 No provider procedures requiring assistance completed. ko1 15:19 IV discontinued, intact, bleeding controlled, No redness/swelling at site. Pressure ko1 dressing applied. Administered Medications: 14:15 Drug: NS 0.9% IV 500 ml IV at bolus once Route: IV; Rate: bolus; Site: right ko1 antecubital; 14:15 Drug: Diazepam PO 5 mg PO once Route: PO; ko1 14:15 Drug: Ondansetron IVP 4 mg IVP once; over 2 minutes Route: IVP; Site: right antecubital;ko1 14:18 Drug: Ketorolac IVP 15 mg IVP once Route: IVP; Site: right antecubital; ko1 14:19 Drug: Decadron - Dexamethasone IVP 10 mg IVP once Route: IVP; Site: right antecubital; ko1 14:19 Drug: HYDROmorphone IVP 1 mg IVP once Route: IVP; Site: right antecubital; ko1 15:04 Drug: Potassium PO Effervescent Tablet 25 mEq PO once; dissolve in 4 ounces of water or ll1 juice Route: PO; Medication: 12:59 VIS not applicable for this client. ko1 Outcome: 15:04 Discharge ordered by . thania 15:19 Discharged to home via wheelchair, with family, johnny 15:19 Condition: improved 15:19 Discharge instructions given to patient, family, Instructed on discharge instructions, follow up and referral plans. medication usage, Demonstrated understanding of instructions, follow-up care, medications, Prescriptions given X 4, 15:30 Patient left the ED. ko1 Signatures: Gio Betancourt MD MD cha Martinez, Amelia as Lewis, Lynsay, RN RN ll1 Shilpa Blake, JAM RN ko1
[2023-04-29] MEDS ORDERED: POTASSIUM 25 MEQ EFFERV TAB ONE (15:12)
[2023-04-29 15:39] VITALS: TEMP 97
[2023-04-29 15:43] VITALS: O2SAT 97
[2023-04-29 15:44] VITALS: BP 153/64
== END 2023-04-29 15:30 | disposition home or self-care (01) ==
LOC: ER 12:48
DX: M54.30 Sciatica, unspecified side (principal); M51.36 Other intervertebral disc degeneration, lumbar region; Z88.5 Allergy status to narcotic agent; Z91.048 Other nonmedicinal substance allergy status
CPT/HCPCS: 85025; 36415; 80053; 96375; 96374; 99284; J1100; J1170; J2405; J7040

== ENCOUNTER 2023-05-05 23:20 | Inpatient (IN) | payer OTHER, BC ==
--- OUTSIDE RECORDS SUMMARY | 2023-05-05 23:26 | XMS REPORT | Continuity of Care Document ---
:1935 Author Organization [facility] t Address [address] [facility] [address] [place] [address] Care Team Providers Name Role Phone ANA HEATHER Tripathi Primary Care Physician Unavailable MARTA JOHNSON Attending Clinician Unavailable MARTA JOHNSON Attending Clinician Unavailable TENZIN CROWLEY Attending Clinician Unavailable RABIA_Aishwarya_ALANIS Attending Clinician Unavailable Marta Johnson MD Attending Clinician Jovany Varela MD Attending Clinician Suman Harris Attending Clinician Unavailable Arley Ferrari Attending Clinician ARLEY DELGADILLO Attending Clinician Unavailable Doctor Unassigned, Reform Attending Clinician Unavailable GAVIN VALENTIN Attending Clinician Unavailable Lucia Laws PT Attending Clinician Unavailable MARY_CHANTALE_Lara Attending Clinician Unavailable 1, [facility] Lab Attending Clinician Unavailable Prashanth Stevenson MD Attending Clinician PRASHANTH STEVENSON Attending Clinician Unavailable Only, Adc Test Attending Clinician Unavailable Etienne Abdi MD Attending Clinician ETIENNE ABDI Attending Clinician Unavailable Yoselin Francisco PTA Attending Clinician Unavailable Kimberly Mcgovern PT Attending Clinician Unavailable Joshua PT, Maki Cotton Attending Clinician Unavailable Jay PT, Sandra Angel Attending Clinician Unavailable Brennon PT, Viki Flores Attending Clinician Unavailable Hola RN, Jacquie Attending Clinician Unavailable Johnny RT, Val Tripathi Attending Clinician Unavailable Jozef VARGAS, Grant Attending Clinician Iona VARGAS, Colby Attending Clinician Rodrigo TREADWELL, Светлана Mazariegos Attending Clinician GO SINGER Attending Clinician Unavailable Nurse, Adc Pob Immunization Attending Clinician Unavailable Go Singer DO Attending Clinician Pob, Ad[facility] Lab Main Attending Clinician Unavailable Tootie Cee Attending Clinician [phone] Jane Marrero AUDIO SPECIALIST, Adwoa Attending Clinician Nolan PRODUCTION LINE OPERATOR, Jose F Attending Clinician Unavailable MARTA JOHNSON Admitting Clinician Unavailable RABIA_Gregg_Yury_NP Admitting Clinician Unavailable Suman Harris Admitting Clinician Unavailable KNOW, DOES_NOT Admitting Clinician Unavailable _[facility] Admitting Clinician Unavailable Iona VARGAS, Colby Admitting Clinician Marta Johnson MD Admitting Clinician Payers Payer Name Policy Type Policy Number Effective Date Expiration Date S preet MEDICARE PART A AND [id number] 2001 B 00:00:00 BS [facility] [id number] 2017 00:00:00 MEDICARE PART A \T\ [id number] 2001 B 00:00:00 BC[employer] TRADITIONAL [id number] 2017 00:00:00 [place] [id number] 2001 [place] 00:00:[place] [id number] 2017 (MEDICARE 00:00:00 SUPPLEMENT) Problems Condition Condition Condition Status Onset Resolution Last Treating Co mments Source Name Details Category Date Date Treatment Clinician Date Low back Low back Disease Active 2022-06 Unive rs pain, pain, 1-25 ity of unspecif[place] back d back 00 Medical pain pain Branch laterality laterality , , unspecifie unspecifie d d chronicity chronicity , , unspecifie unspecifie d whether d whether sciatica sciatica present present Radiculopa Radiculopa Disease Active 2022-06 U jamey thy, thy, 1 ity of unspecifie [place]spec[place]ie [place] [...] weakness 06-04 it y of 00:00: [place] [facility] Vomiting Vomiting Disease Active 2020-06 Unive rs 0 ity of 00:00: [place] [facility] Primary Primary Disease Active Overview: Univ ers osteoarthr osteoarthr 12-20 Formattin ity of itis of itis of 00:00: g of this [place] right right 00 note Medical shoulder shoulder might be Bran ch different from the original. Added automatic ally from request for surgery [id number] Allergies, Adverse Reactions, Alerts Allergy Allergy Status Severity Reaction(s) Onset Inactive Treating Comm ents Source Name Type Date Date Clinician morphine DA Active U headache, 2022-06 [facility] nausea 0-04 [facility] adhesive DA Active SV TEARS SKIN 2022-06 [facility] tape 004 00:00: [facility] iodine DA Active U rash, 2022-06 [facility] itching, 0-04 [place] hives-CONTRA 00:00: Orth ope [facility] 00 dic Hospita l iodine DA Active U rash, [facility] itching, 8 hives 00:00: [facility]ope 00 [facility] morphine DA Active U headache, [facility] nausea 8 00:00: [facility] 00 [facility] latex DA Active SV redness, [facility] blister 8 00:00: [facility] 00 [facility] morphine DA Active U UNKNOWN [facility] 8-04 [place] 00:00: [facility] Morphine Propensi Active Nausea Only U nivers ty to 07 ity of adverse 00:00: [place] reaction 00 Medical s Branch MORPHINE DRUG Active N/V Univers INGREDI 2-07 ity of 00:00: [place] 00 Medical Branch Morphine Allergy Active Nausea [facility] to Medical substanc e Social History Social Habit Start Date Stop Date Quantity Comments Source History of tobacco Current smoker Un iversity of use [facility] Sexual orientation [facility] Alcohol intake 2023-04-05 2023-04-05 Current drinker Unive rsity of 00:00:00 00:00:00 of alcohol [facility] (finding) [place] History of Social 2023-04-05 2023-04-05 Univers ity of function 00:00:00 00:00:00 [facility] Tobacco use and 2022-11-17 2022-11-17 Smokeless Universit y of exposure 00:00:00 00:00:00 tobacco non-user [facility] Tobacco Comment 2022-11-17 2022-11-17 pt quit 50 yrs Unive rsity of 00:00:00 00:00:00 ago [facility] Exposure to 2022-03-10 2022-03-20 Not sure [facility] SARS-CoV-2 (event) 00:00:00 10:49:00 [facility] Sex Assigned At [birth year] [facility] 00:00:00 00:[facility]:00 [facility] Smoking Status Start Date Stop Date Source Tobacco smoking [facility] consumption unknown Ex-smoker 2022-11-17 00:00:00 2022-11-17 [facility] [place] 00:00:00 [facility] Medications Ordered Filled Start Stop Current Ordering Indication Dosage Frequency Signature Comments Components Source Medication Medication Date Date Medication? Clinician (SIG) Name Name HYDROcodone 2022-06- No 1{tbl} 1 tablet, Univers -acetaminop 06-29 Oral, ity of hen (NORCO) 02:15: 01:31 ONCE, 1 [place] 10-325 mg 00 :00 dose, On Medica l tablet 1 Sat Branch tablet 04/28/23 at 2015, FLORINDA lidocaine 2022-06- No 1{patch 1 Patch, Univers (LIDODERM) 06-29 } Topical, ity of 5 % (700 02:15: 01:32 ONCE, 1 [place] mg/patch) 00 :00 dose, On Medica l patch 1 Sat Branch Patch 04/28/23 at 2015, FLORINDA methylPREDN 2022-06 Yes [id number] 84mg Take 21 Univers ISolone 1-02 tablets by ity of (MEDROL, 00:00: mouth [place] KELLIE,) 4 mg 00 SEE-INSTRU Med ical tablets CTIONS. Branch follow package directions methylPREDN 2022-06 Yes [id number] 84mg Take 21 Univers ISolone 1-02 tablets by ity of (MEDROL, 00:00: mouth [place] KELLIE,) 4 mg 00 SEE-INSTRU Med ical tablets CTIONS. Branch follow package directions methylPREDN 2022-06 Yes [id number] 84mg Take 21 Univers ISolone 1-02 tablets by ity of (MEDROL, 00:00: mouth [place] KELLIE,) 4 mg 00 SEE-INSTRU Med ical tablets CTIONS. Branch follow package directions methylPREDN 2022-06 Yes [id number] 84mg Take 21 Univers ISolone 1-02 tablets by ity of (MEDROL, 00:00: mouth [place] KELLIE,) 4 mg 00 SEE-INSTRU Med ical tablets CTIONS. Branch follow package directions methylPREDN 2022-06 Yes [id number] 84mg Take 21 Univers ISolone 1-02 tablets by ity of (MEDROL, 00:00: mouth [place] KELLIE,) 4 mg 00 SEE-INSTRU Med ical tablets CTIONS. Branch follow package directions triamcinolo 2022- No [id number] 40mg Univers ne 11-17 9109 ity of acetonide 17:45: 17:01 [place] (KENALOG) 00 :00 Medical injection Branch 40 mg triamcinolo 2022- No [id number] 40mg 40 mg, [facility] ne 11-17 9109 Intramuscu ity of acetonide 17:45: 17:01 lar, ONCE, [place] (KENALOG) 00 :00 1 dose, On Medi curly injection Fri Branch 40 mg 11/17/22 at 1245, Routine triamcinolo 2022- No [id number] 40mg Univers ne 11-17 9109 ity of acetonide 17:45: 17:01 [place] (KENALOG) 00 :00 Medical injection Branch 40 mg triamcinolo 2022- No [id number] 40mg 40 mg, Univers ne 11-17 9109 Intramuscu ity of acetonide 17:45: 17:01 lar, ONCE, [place] (KENALOG) 00 :00 1 dose, On Medi curly injection Fri Branch 40 mg 11/17/22 at 1245, Routine triamcinolo 2022- No [id number] 40mg Un zia ne 11-17 ity of acetonide 17:15: 16:22 [place] (KENALOG) 00 :00 Medical injection Branch 40 mg triamcinolo 2022- No [id number] 40mg 40 mg, Univers ne 11-17 Intramuscu ity of acetonide 17:15: 16:22 lar, ONCE, [place] (KENALOG) 00 :00 1 dose, On Medi curly injection Fri Branch 40 mg 11/17/22 at 1215, Routine triamcinolo 2022- No [id number] 40mg Un zia ne 11-17 ity of acetonide 17:15: 16:22 [place] (KENALOG) 00 :00 Medical injection Branch 40 mg triamcinolo 2022- No [id number] 40mg 40 mg, Univers ne 11-17 Intramuscu ity of acetonide 17:15: 16:22 lar, ONCE, [place] (KENALOG) 00 :00 1 dose, On Medi curly injection Fri Branch 40 mg 11/17/22 at 1215, Routine triamcinolo 2021-06- No [id number] 40mg Univers ne 0-18 10-18 9100 ity of acetonide 19:30: 18:25 [place] (KENALOG) 00 :00 Medical injection Branch 40 mg triamcinolo 2021-06- No [id number] 80mg Univers ne 0-18 10-18 9100 ity of acetonide 19:30: 18:27 [place] (KENALOG) 00 :00 Medical injection Branch 80 mg triamcinolo 2021-06- No [id number] 80mg 80 mg, Univers ne 0-18 03-21 Intramuscu ity of acetonide 19:30: 18:27 lar, ONCE, [place] (KENALOG) 00 :00 1 dose, On Medi curly injection Tue Branch 80 mg 03/21/22 at 1430, Routine triamcinolo 2021-06- No [id number] 40mg 40 mg, Univers ne 0-18 03-21 Intramuscu ity of acetonide 19:30: 18:25 [...] 0-03 mouth. ity of mg Cap 13:23: [address] omeprazole 2020-06 Yes 20mg Take 20 mg U nivers 20 mg 0-03 by mouth ity of capsule 13:23: daily. [address] brimonidine 2020-06 Yes brimonidin Univers 0.2 % 0-03 e 0.2 % ity of ophthalmic 13:23: [place] drops [place] [address] [place] [address] latanoprost 2020-06 Yes latanopros Univers , PF, 0.005 0-03 t 0.005 % ity of % Drop 13:23: eye drops [address] fluticasone 2020-06 Yes 1{puff} Inhale 1 Univers -salmeterol 0-03 Puff once ity of (ADVAIR 13:23: daily as [place] DISKUS) 04 needed. Medical 250-50 Branch mcg/dose inhalation disk Cranberry 2020-06 Yes Take by [employer] rs Extract 200 0-03 mouth. ity of mg Cap 13:23: [address] omeprazole 2020-06 Yes 20mg Take 20 mg U nivers 20 mg 0-03 by mouth ity of capsule 13:23: daily. [address] brimonidine 2020-06 Yes brimonidin Univers 0.2 % 0-03 e 0.2 % ity of ophthalmic 13:23: [place] drops [place] [facility] latanoprost 2020-06 Yes latanopros Univers , PF, 0.005 0-03 t 0.005 % ity of % Drop 13:23: eye drops [address] fluticasone 2020-06 Yes 1{puff} Inhale 1 Univers -salmeterol 0-03 Puff once ity of (ADVAIR 13:23: daily as [place] DISKUS) 04 needed. Medical 250-50 Branch mcg/dose inhalation disk Cranberry 2020-06 Yes Take by [employer] rs Extract 200 0-03 mouth. ity of mg Cap 13:23: [address] omeprazole 2020-06 Yes 20mg Take 20 mg U nivers 20 mg 0-03 by mouth ity of capsule 13:23: daily. [address] brimonidine 2020-06 Yes brimonidin Univers 0.2 % 0-03 e 0.2 % ity of ophthalmic 13:23: [place] drops [place] [facility] latanoprost 2020-06 Yes latanopros Univers , PF, 0.005 0-03 t 0.005 % ity of % Drop 13:23: eye drops [address] fluticasone 2020-06 Yes 1{puff} Inhale 1 Univers -salmeterol 0-03 Puff once ity of (ADVAIR 13:23: daily as [place] DISKUS) 04 needed. Medical 250-50 Branch mcg/dose inhalation disk Cranberry 2020-06 Yes Take by [employer] rs Extract 200 0-03 mouth. ity of mg Cap 13:23: [address] omeprazole 2020-06 Yes 20mg Take 20 mg U nivers 20 mg 0-03 by mouth ity of capsule 13:23: daily. [address] brimonidine 2020-06 Yes brimonidin Univers 0.2 % 0-03 e 0.2 % ity of ophthalmic 13:23: [place] drops [place] [address] [place] [address] latanoprost 2020-06 Yes latanopros Univers , PF, 0.005 0-03 t 0.005 % ity of % Drop 13:23: eye drops [address] fluticasone 2020-06 Yes 1{puff} Inhale 1 Univers -salmeterol 0-03 Puff once ity of (ADVAIR 13:23: daily as [place] DISKUS) 04 needed. Medical 250-50 Branch mcg/dose inhalation disk Cranberry 2020-06 Yes Take by [employer] rs Extract 200 0-03 mouth. ity of mg Cap 13:23: [address] omeprazole 2020-06 Yes 20mg Take 20 mg U nivers 20 mg 0-03 by mouth ity of capsule 13:23: daily. [address] brimonidine 2020-06 Yes brimonidin Univers 0.2 % 0-03 e 0.2 % ity of ophthalmic 13:23: [place] drops [place] [address] [place] [address] latanoprost 2020-06 Yes latanopros Univers , PF, 0.005 0-03 t 0.005 % ity of % Drop 13:23: eye drops [address] fluticasone 2020-06 Yes 1{puff} Inhale 1 Univers -salmeterol 0-03 Puff once ity of (ADVAIR 13:23: daily as [place] DISKUS) 04 needed. [facility] 250-50 Branch mcg/dose inhalation disk Cranberry 2020-06 Yes Take by [employer] rs Extract 200 0-03 mouth. ity of mg Cap 13:23: [address] omeprazole 2020-06 Yes 20mg Take 20 mg U nivers 20 mg 0-03 by mouth ity of capsule 13:23: daily. [address] brimonidine 2020-06 Yes brimonidin Univers 0.2 % 0-03 e 0.2 % ity of ophthalmic 13:23: [place] drops [place] [address] [place] [address] latanoprost 2020-06 Yes latanopros Univers , PF, 0.005 0-03 t 0.005 % ity of % Drop 13:23: eye drops [address] fluticasone 2020-06 Yes 1{puff} Inhale 1 Univers -salmeterol 0-03 Puff once ity of (ADVAIR 13:23: daily as [place] DISKUS) 04 needed. Medical 250-50 Branch mcg/dose inhalation disk Cranberry 2020-06 Yes Take by [employer] rs Extract 200 0-03 mouth. ity of mg Cap 13:23: [address] omeprazole 2020-06 Yes 20mg Take 20 mg U nivers 20 mg 0-03 by mouth ity of capsule 13:23: daily. [address] brimonidine 2020-06 Yes brimonidin Univers 0.2 % 0-03 e 0.2 % ity of ophthalmic 13:23: eye drops [place] solution [facility] latanoprost 2020-06 Yes latanopros Univers , PF, 0.005 0-03 t 0.005 % ity of % Drop 13:23: eye drops [address] fluticasone 2020-06 Yes 1{puff} Inhale 1 Univers -salmeterol 0-03 Puff once ity of (ADVAIR 13:23: daily as [place] DISKUS) 04 needed. Medical 250-50 Branch mcg/dose inhalation disk Cranberry 2020-06 Yes Take by [employer] rs Extract 200 0-03 mouth. ity of mg Cap 13:23: [address] omeprazole 2020-06 Yes 20mg Take 20 mg U nivers 20 mg 0-03 by mouth ity of capsule 13:23: daily. [address] brimonidine 2020-06 Yes brimonidin Univers 0.2 % 0-03 e 0.2 % ity of ophthalmic 13:23: eye drops [place] [address] [place] [address] Branch latanoprost 2020-06 Yes latanopros Univers , PF, 0.005 0-03 t 0.005 % ity of % Drop 13:23: eye drops [address] fluticasone 2020-06 Yes 1{puff} Inhale 1 Univers -salmeterol 0-03 Puff once ity of (ADVAIR 13:23: daily as [place] DISKUS) 04 needed. Medical 250-50 Branch mcg/dose inhalation disk Cranberry 2020-06 Yes Take by [employer] rs Extract 200 0-03 mouth. ity of mg Cap 13:23: [address] omeprazole 2020-06 Yes 20mg Take 20 mg U nivers 20 mg 0-03 by mouth ity of capsule 13:23: daily. [address] brimonidine 2020-06 Yes brimonidin Univers 0.2 % 0-03 e 0.2 % ity of ophthalmic 13:23: [place] drops [place] [address] [place] [address] latanoprost 2020-06 Yes latanopros Univers , PF, 0.005 0-03 t 0.005 % ity of % Drop 13:23: eye drops [address] fluticasone 2020-06 Yes 1{puff} Inhale 1 Univers -salmeterol 0-03 Puff once ity of (ADVAIR 13:23: daily as [place] DISKUS) 04 needed. [facility] [address] [place] mcg/dose inhalation disk Cranberry 2020-06 Yes Take by [employer] Extract 200 0-03 mouth. ity of mg Cap 13:23: [address] omeprazole 2020-06 Yes 20mg Take 20 mg U nivers 20 mg 0-03 by mouth ity of capsule 13:23: daily. [address] brimonidine 2020-06 Yes brimonidin Univers 0.2 % 0-03 e 0.2 % ity of ophthalmic 13:23: [place] drops [place] [address] [place] [address] latanoprost 2020-06 Yes latanopros Univers , PF, 0.005 0-03 t 0.005 % ity of % Drop 13:23: eye drops [address] fluticasone 2020-06 Yes 1{puff} Inhale 1 Univers -salmeterol 0-03 Puff once ity of (ADVAIR 13:23: daily as [place] DISKUS) 04 needed. [facility] [address] [place] mcg/dose inhalation disk Cranberry 2020-06 Yes Take by [employer] rs Extract 200 0-03 mouth. ity of mg Cap 13:23: [address] omeprazole 2020-06 Yes 20mg Take 20 mg U nivers 20 mg 0-03 by mouth ity of capsule 13:23: daily. [address] brimonidine 2020-06 Yes brimonidin Univers 0.2 % 0-03 e 0.2 % ity of ophthalmic 13:23: eye drops [place] [address] [place] [address] latanoprost 2020-06 Yes latanopros Univers , PF, 0.005 0-03 t 0.005 % ity of % Drop 13:23: eye drops [address] fluticasone 2020-06 Yes 1{puff} Inhale 1 Univers -salmeterol 0-03 Puff once ity of (ADVAIR 13:23: daily as [place] DISKUS) 04 needed. Medical 250-50 Branch mcg/dose inhalation disk Cranberry 2020-06 Yes Take by [employer] rs Extract 200 0-03 mouth. ity of mg Cap 13:23: [address] omeprazole 2020-06 Yes 20mg Take 20 mg U nivers 20 mg 0-03 by mouth ity of capsule 13:23: daily. [address] brimonidine 2020-06 Yes brimonidin Univers 0.2 % 0-03 e 0.2 % ity of ophthalmic 13:23: eye drops [place] solution [address] [place] [address] latanoprost 2020-06 Yes latanopros Univers , PF, 0.005 0-03 t 0.005 % ity of % Drop 13:23: eye drops [address] fluticasone 2020-06 Yes 1{puff} Inhale 1 Univers -salmeterol 0-03 Puff once ity of (ADVAIR 13:23: daily as [place] DISKUS) 04 needed. [facility] [address] Branch mcg/dose inhalation disk Cranberry 2020-06 Yes Take by [employer] rs Extract 200 0-03 mouth. ity of mg Cap 13:23: [address] omeprazole 2020-06 Yes 20mg Take 20 mg U nivers 20 mg 0-03 by mouth ity of capsule 13:23: daily. [address] brimonidine 2020-06 Yes brimonidin Univers 0.2 % 0-03 e 0.2 % ity of ophthalmic 13:23: eye drops [place] [address] [place] [address] latanoprost 2020-06 Yes latanopros Univers , PF, 0.005 0-03 t 0.005 % ity of % Drop 13:23: eye drops [address] fluticasone 2020-06 Yes 1{puff} Inhale 1 Univers -salmeterol 0-03 Puff once ity of (ADVAIR 13:23: daily as [place] DISKUS) 04 needed. Medical 250-50 Branch mcg/dose inhalation disk Cranberry 2020-06 Yes Take by [employer] rs Extract 200 0-03 mouth. ity of mg Cap 13:23: [address] omeprazole 2020-06 Yes 20mg Take 20 mg U nivers 20 mg 0-03 by mouth ity of capsule 13:23: daily. [address] brimonidine 2020-06 Yes brimonidin Univers 0.2 % 0-03 e 0.2 % ity of ophthalmic 13:23: eye drops [place] solution [facility] latanoprost 2020-06 Yes latanopros Univers , PF, 0.005 0-03 t 0.005 % ity of % Drop 13:23: eye drops [address] fluticasone 2020-06 Yes 1{puff} Inhale 1 Univers -salmeterol 0-03 Puff once ity of (ADVAIR 13:23: daily as [place] DISKUS) 04 needed. Medical 250-50 Branch mcg/dose inhalation disk Cranberry 2020-06 Yes Take by [employer] rs Extract 200 0-03 mouth. ity of mg Cap 13:23: [address] omeprazole 2020-06 Yes 20mg Take 20 mg U nivers 20 mg 0-03 by mouth ity of capsule 13:23: daily. [address] brimonidine 2020-06 Yes brimonidin Univers 0.2 % 0-03 e 0.2 % ity of ophthalmic 13:23: eye drops [place] solution [facility] latanoprost 2020-06 Yes latanopros Univers , PF, 0.005 0-03 t 0.005 % ity of % Drop 13:23: eye drops [address] fluticasone 2020-06 Yes 1{puff} Inhale 1 Univers -salmeterol 0-03 Puff once ity of (ADVAIR 13:23: daily as [place] DISKUS) 04 needed. Medical 250-50 Branch mcg/dose inhalation disk Cranberry 2020-06 Yes Take by [employer] rs Extract 200 0-03 mouth. ity of mg Cap 13:23: [address] omeprazole 2020-06 Yes 20mg Take 20 mg U nivers 20 mg 0-03 by mouth ity of capsule 13:23: daily. [address] brimonidine 2020-06 Yes brimonidin Univers 0.2 % 0-03 e 0.2 % ity of ophthalmic 13:23: eye drops [place] solution [facility] latanoprost 2020-06 Yes latanopros Univers , PF, 0.005 0-03 t 0.005 % ity of % Drop 13:23: eye drops [address] fluticasone 2020-06 Yes 1{puff} Inhale 1 Univers -salmeterol 0-03 Puff once ity of (ADVAIR 13:23: daily as [place] DISKUS) 04 needed. Medical 250-50 Branch mcg/dose inhalation disk Cranberry 2020-06 Yes Take by [employer] rs Extract 200 0-03 mouth. ity of mg Cap 13:23: [address] omeprazole 2020-06 Yes 20mg Take 20 mg U nivers 20 mg 0-03 by mouth ity of capsule 13:23: daily. [address] brimonidine 2020-06 Yes brimonidin Univers 0.2 % 0-03 e 0.2 % ity of ophthalmic 13:23: [place] drops [place] [address] [place] [address] latanoprost 2020-06 Yes latanopros Univers , PF, 0.005 0-03 t 0.005 % ity of % Drop 13:23: eye drops [address] fluticasone 2020-06 Yes 1{puff} Inhale 1 Univers -salmeterol 0-03 Puff once ity of (ADVAIR 13:23: daily as [place] DISKUS) 04 needed. Medical 250-50 Branch mcg/dose inhalation disk Cranberry 2020-06 Yes Take by [employer] rs Extract 200 0-03 mouth. ity of mg Cap 13:23: [address] omeprazole 2020-06 Yes 20mg Take 20 mg U nivers 20 mg 0-03 by mouth ity of capsule 13:23: daily. [address] brimonidine 2020-06 Yes brimonidin Univers 0.2 % 0-03 e 0.2 % ity of ophthalmic 13:23: eye drops [place] [address] [place] [address] latanoprost 2020-06 Yes latanopros Univers , PF, 0.005 0-03 t 0.005 % ity of % Drop 13:23: eye drops [address] fluticasone 2020-06 Yes 1{puff} Inhale 1 Univers -salmeterol 0-03 Puff once ity of (ADVAIR 13:23: daily as [place] DISKUS) 04 needed. Medical 250-50 Branch mcg/dose inhalation disk Cranberry 2020-06 Yes Take by [employer] Extract 200 0-03 mouth. ity of mg Cap 13:23: [address] omeprazole 2020-06 Yes 20mg Take 20 mg U nivers 20 mg 0-03 by mouth ity of capsule 13:23: daily. [address] brimonidine 2020-06 Yes brimonidin Univers 0.2 % 0-03 e 0.2 % ity of ophthalmic 13:23: [place] drops [place] [address] [place] [address] latanoprost 2020-06 Yes latanopros Univers , PF, 0.005 0-03 t 0.005 % ity of % Drop 13:23: eye drops [address] fluticasone 2020-06 Yes 1{puff} Inhale 1 Univers -salmeterol 0-03 Puff once ity of (ADVAIR 13:23: daily as [place] DISKUS) 04 needed. [facility] 250-50 Branch mcg/dose inhalation disk Cranberry 2020-06 Yes Take by [employer] rs Extract 200 0-03 mouth. ity of mg Cap 13:23: [address] omeprazole 2020-06 Yes 20mg Take 20 mg U nivers 20 mg 0-03 by mouth ity of capsule 13:23: daily. [address] brimonidine 2020-06 Yes brimonidin Univers 0.2 % 0-03 e 0.2 % ity of ophthalmic 13:23: [place] drops [place] [address] [place] [address] latanoprost 2020-06 Yes latanopros Univers , PF, 0.005 0-03 t 0.005 % ity of % Drop 13:23: eye drops [address] traMADoL 50 Yes [id number] 50mg Take [...] 20 mg 6-03 ity of tablet 00:00: [place] 00 [facility] atorvastati 2018-0 Yes Univer s n 20 mg 6-03 ity of tablet 00:00: [place] [facility] atorvastati 2018-0 Yes Univer s n 20 mg 6-03 ity of tablet 00:00: [place] [facility] atorvastati 2018-0 Yes Univer s n 20 mg 6-03 ity of tablet 00:00: [place] [facility] atorvastati 2018-0 Yes Univer s n 20 mg 6-03 ity of tablet 00:00: [place] [facility] atorvastati 2018-0 Yes Univer s n 20 mg 6-03 ity of tablet 00:00: [place] [address] Medical Branch atorvastati 2018-0 Yes Univer s n 20 mg 6-03 ity of tablet 00:00: [address] Branch atorvastati 2018-0 Yes Univer s n 20 mg 6-03 ity of tablet 00:00: [address] Branch atorvastati 2018-0 Yes Univer s n 20 mg 6-03 ity of tablet 00:00: [place] [address] Medical Branch atorvastati 2018-0 Yes Univer s n 20 mg 6-03 ity of tablet 00:00: [address] Branch atorvastati 2018-0 Yes Univer s n 20 mg 6-03 ity of tablet 00:00: [address] Branch atorvastati 2018-0 Yes Univer s n 20 mg 6-03 ity of tablet 00:00: [address] Branch atorvastati 2018-0 Yes Univer s n 20 mg 6-03 ity of tablet 00:00: [facility] atorvastati 2018-0 Yes Univer s n 20 mg 6-03 ity of tablet 00:00: [address] Branch carvedilol 2018-0 Yes Univers 12.5 mg 5-29 ity of tablet 00:00: [place] [address] [facility] carvedilol 2018-0 Yes Univers 12.5 mg 5-29 ity of tablet 00:00: [place] [address] [facility] carvedilol 2018-0 Yes Univers 12.5 mg 5-29 ity of tablet 00:00: [place] [address] [facility] carvedilol 2018-0 Yes Univers 12.5 mg 5-29 ity of tablet 00:00: [place] [address] [facility] carvedilol 0 Yes Univers 12.5 mg 5-29 ity of tablet 00:00: [address] carvedilol 2017-0 Yes Univers 12.5 mg 5-29 ity of tablet 00:00: [address] carvedilol 2017-0 Yes Univers 12.5 mg 5-29 ity of tablet 00:00: [address] carvedilol 2017-0 Yes Univers 12.5 mg 5-29 ity of tablet 00:00: [address] carvedilol 2017-0 Yes Univers 12.5 mg 5-29 ity of tablet 00:00: [address] carvedilol 0 Yes Univers 12.5 mg 5-29 ity of tablet 00:00: [address] carvedilol 2017-0 Yes Univers 12.5 mg 5-29 ity of tablet 00:00: [address] carvedilol 0 Yes Univers 12.5 mg 5-29 ity of tablet 00:00: [address] carvedilol 2017-0 Yes Univers 12.5 mg 5-29 ity of tablet 00:00: [address] carvedilol 0 Yes Univers 12.5 mg 5-29 ity of tablet 00:00: [address] carvedilol 2017-0 Yes Univers 12.5 mg 5-29 ity of tablet 00:00: [address] carvedilol 0 Yes Univers 12.5 mg 5-29 ity of tablet 00:00: [address] carvedilol 2017-0 Yes Univers 12.5 mg 5-29 ity of tablet 00:00: [address] carvedilol 2017-0 Yes Univers 12.5 mg 5-29 ity of tablet 00:00: [address] carvedilol 0 Yes Univers 12.5 mg 5-29 ity of tablet 00:00: [address] carvedilol 2017-0 Yes Univers 12.5 mg 5-29 ity of tablet 00:00: [address] famotidine 0 Yes Univers 40 mg 5-21 ity of tablet 00:00: [address] famotidine 0 Yes Univers 40 mg 5-21 ity of tablet 00:00: [place] [facility] famotidine 2018-0 Yes Univers 40 mg 5-21 ity of tablet 00:00: [address] Branch famotidine 2018-0 Yes Univers 40 mg 5-21 ity of tablet 00:00: [address] Branch famotidine 2017-0 Yes Univers 40 mg 5-21 ity of tablet 00:00: [address] famotidine 2017-0 Yes Univers 40 mg 5-21 ity of tablet 00:00: [address] famotidine 2017-0 Yes Univers 40 mg 5-21 ity of tablet 00:00: [address] famotidine 2017-0 Yes Univers 40 mg 5-21 ity of tablet 00:00: [address] famotidine 2017-0 Yes Univers 40 mg 5-21 ity of tablet 00:00: [address] famotidine 2017-0 Yes Univers 40 mg 5-21 ity of tablet 00:00: [address] famotidine 2017-0 Yes Univers 40 mg 5-21 ity of tablet 00:00: [address] famotidine 2017-0 Yes Univers 40 mg 5-21 ity of tablet 00:00: [address] famotidine 0 Yes Univers 40 mg 5-21 ity of tablet 00:00: [address] famotidine 2017-0 Yes Univers 40 mg 5-21 ity of tablet 00:00: [address] famotidine 2017-0 Yes Univers 40 mg 5-21 ity of tablet 00:00: [address] famotidine 2017-0 Yes Univers 40 mg 5-21 ity of tablet 00:00: [address] Branch famotidine 2018-0 Yes Univers 40 mg 5-21 ity of tablet 00:00: [address] famotidine 2017-0 Yes Univers 40 mg 5-21 ity of tablet 00:00: [address] famotidine 2018-0 Yes Univers 40 mg 5-21 ity of tablet 00:00: [address] famotidine 2018-0 Yes Univers 40 mg 5-21 ity of tablet 00:00: [address] Branch gabapentin 2018-0 Yes Univers 600 mg 5-07 ity of tablet 00:00: [address] Branch gabapentin 2018-0 Yes Univers 600 mg 5-07 ity of tablet 00:00: [address] gabapentin 2018-0 Yes Univers 600 mg 5-07 ity of tablet 00:00: [place] [address] [facility] gabapentin 2018-0 Yes Univers 600 mg 5-07 ity of tablet 00:00: [place] [address] [facility] gabapentin 2018-0 Yes Univers 600 mg 5-07 ity of tablet 00:00: [place] [address] [facility] gabapentin 2018-0 Yes Univers 600 mg 5-07 ity of tablet 00:00: [place] [address] [facility] gabapentin 2018-0 Yes Univers 600 mg 5-07 ity of tablet 00:00: [place] [address] [facility] gabapentin 2018-0 Yes Univers 600 mg 5-07 ity of tablet 00:00: [place] [address] [facility] gabapentin 2018-0 Yes Univers 600 mg 5-07 ity of tablet 00:00: [place] [address] [facility] gabapentin 2018-0 Yes Univers 600 mg 5-07 ity of tablet 00:00: [address] Branch gabapentin 2018-0 Yes Univers 600 mg 5-07 ity of tablet 00:00: [place] [address] [facility] gabapentin 2018-0 Yes Univers 600 mg 5-07 ity of tablet 00:00: [place] [address] [facility] gabapentin 2018-0 Yes Univers 600 mg 5-07 ity of tablet 00:00: [address] Branch gabapentin 2018-0 Yes Univers 600 mg 5-07 ity of tablet 00:00: [place] [address] [facility] gabapentin 2018-0 Yes Univers 600 mg 5-07 ity of tablet 00:00: [place] [address] [facility] gabapentin 2018-0 Yes Univers 600 mg 5-07 ity of tablet 00:00: [place] [address] [facility] gabapentin 2018-0 Yes Univers 600 mg 5-07 ity of tablet 00:00: [place] [address] [facility] gabapentin 2018-0 Yes Univers 600 mg 5-07 ity of tablet 00:00: [address] Branch gabapentin 2018-0 Yes Univers 600 mg 5-07 ity of tablet 00:00: [address] Branch gabapentin 2018-0 Yes Univers 600 mg 5-07 ity of tablet 00:00: [address] Branch levothyroxi 2018-0 Yes Univer s ne 50 mcg 3-30 ity of tablet 00:00: [address] Branch levothyroxi 2018-0 Yes Univer s ne 50 mcg 3-30 ity of tablet 00:00: [address] Branch levothyroxi 2018-0 Yes Univer s ne 50 mcg 3-30 ity of tablet 00:00: [address] Branch levothyroxi 2018-0 Yes Univer s ne 50 mcg 3-30 ity of tablet 00:00: [place] [facility] levothyroxi 2018-0 Yes Univer s ne 50 mcg 3-30 ity of tablet 00:00: [place] [facility] levothyroxi 2018-0 Yes Univer s ne 50 mcg 3-30 ity of tablet 00:00: [place] [address] [facility] levothyroxi 2018-0 Yes Univer s ne 50 mcg 3-30 ity of tablet 00:00: [place] [facility] levothyroxi 2018-0 Yes Univer s ne 50 mcg 3-30 ity of tablet 00:00: [place] [address] [facility] levothyroxi 2018-0 Yes Univer s ne 50 mcg 3-30 ity of tablet 00:00: [place] [address] [facility] levothyroxi 2018-0 Yes Univer s ne 50 mcg 3-30 ity of tablet 00:00: [place] [address] [facility] levothyroxi 2018-0 Yes Univer s ne 50 mcg 3-30 ity of tablet 00:00: [place] [address] [facility] levothyroxi 2018-0 Yes Univer s ne 50 mcg 3-30 ity of tablet 00:00: [place] [address] [facility] levothyroxi 2018-0 Yes Univer s ne 50 mcg 3-30 ity of tablet 00:00: [place] [address] [facility] levothyroxi 2018-0 Yes Univer s ne 50 mcg 3-30 ity of tablet 00:00: [place] [address] [facility] levothyroxi 2018-0 Yes Univer s ne 50 mcg 3-30 ity of tablet 00:00: [place] [address] [facility] levothyroxi 2018-0 Yes Univer s ne 50 mcg 3-30 ity of tablet 00:00: [place] [address] [facility] levothyroxi 2018-0 Yes Univer s ne 50 mcg 3-30 ity of tablet 00:00: [place] [address] [facility] levothyroxi 2018-0 Yes Univer s ne 50 mcg 3-30 ity of tablet 00:00: [place] [address] [facility] levothyroxi 2018-0 Yes Univer s ne 50 mcg 3-30 ity of tablet 00:00: [place] [address] [facility] levothyroxi 2018-0 Yes Univer s ne 50 mcg 3-30 ity of tablet 00:00: [place] [address] [facility] acetaminoph acetaminoph No acetaminop [facility] [...] No Fluzone [facility] [id number] (PF) 180 (PF) 180 (PF) 180 mcg/0.5 [...] 325 mg tablet mg tablet mg tablet Immunizations Ordered Filled Date Status Comments Source Immunization Name Immunization Name SARS-COV-2 COVID-19 2021-02-10 Completed Unive rsity of [facility] VACCINE 00:00:00 [facility] SARS-COV-2 COVID-19 2021-02-10 Completed Unive rsity of MODERNA VACCINE 00:00:00 [facility] SARS-COV-2 COVID-19 2021-02-10 Completed Unive rsity of MODERNA VACCINE 00:00:00 [facility] SARS-COV-2 COVID-19 2021-02-10 Completed Unive rsity of MODERNA VACCINE 00:00:00 [facility] SARS-COV-2 COVID-19 2021-02-10 Completed Unive rsity of MODERNA VACCINE 00:00:00 [facility] SARS-COV-2 COVID-19 2021-02-10 Completed Unive rsity of MODERNA 12+ YRS 00:00:00 [facility] VACCINE [place] SARS-COV-2 COVID-19 2021-02-10 Completed Unive rsity of MODERNA 12+ YRS 00:00:00 [facility] VACCINE [place] SARS-COV-2 COVID-19 2021-02-10 Completed Unive rsity of MODERNA 12+ YRS 00:00:00 [facility] SARS-COV-2 COVID-19 2021-02-10 Completed Unive rsity of MODERNA 12+ YRS 00:00:00 [facility] ical VACCINE Branch SARS-COV-2 COVID-19 2021-02-10 Completed Unive rsity of MODERNA 12+ YRS 00:00:00 [facility] ical VACCINE Branch SARS-COV-2 COVID-19 2021-02-10 Completed Unive rsity of MODERNA 12+ YRS 00:00:00 [facility] ical VACCINE Branch SARS-COV-2 COVID-19 2021-02-10 Completed Unive rsity of MODERNA 12+ YRS 00:00:00 [facility] ical VACCINE Branch SARS-COV-2 COVID-19 2021-02-10 Completed Unive rsity of MODERNA 12+ YRS 00:00:00 [facility] ical VACCINE Branch SARS-COV-2 COVID-19 2021-02-10 Completed Unive rsity of MODERNA 12+ YRS 00:00:00 [facility] ical VACCINE Branch TDAP 2018-11-22 Completed University of 00:00:00 [facility] Branch TDAP 2018-11-22 Completed University of 00:00:00 [facility] TDAP 2018-11-22 Completed University of 00:00:00 [facility] TDAP 2018-11-22 Completed University of 00:00:00 [facility] TDAP 2018-11-22 Completed University of 00:00:00 [facility] TDAP 2018-11-22 Completed University of 00:00:00 [facility] TDAP 2018-11-22 Completed University of 00:00:00 [facility] Branch TDAP 2018-11-22 Completed University of 00:00:00 [facility] TDAP 2018-11-22 Completed University of 00:00:00 [facility] TDAP 2018-11-22 Completed University of 00:00:00 [facility] TDAP 2018-11-22 Completed University of 00:00:00 [facility] TDAP 2018-11-22 Completed University of 00:00:00 [facility] TDAP 2018-11-22 Completed University of 00:00:00 [facility] Branch TDAP 2018-11-22 Completed University of 00:00:00 [facility] Zoster Vaccine 2018-01-18 Completed University of Recombinant 00:00:00 [facility] Zoster Vaccine 2018-01-18 Completed University of Recombinant 00:00:00 [facility] Zoster Vaccine 2018-01-18 Completed University of Recombinant 00:00:00 [facility] Zoster Vaccine 2018-01-18 Completed University of Recombinant 00:00:00 [facility] Zoster Vaccine 2018-01-18 Completed University of Recombinant 00:00:00 [facility] Zoster Vaccine 2018-01-18 Completed University of Recombinant 00:00:00 [facility] Zoster Vaccine 2018-01-18 Completed University of Recombinant 00:00:00 [facility] Zoster Vaccine 2018-01-18 Completed University of Recombinant 00:00:00 [facility] Zoster Vaccine 2018-01-18 Completed University of Recombinant 00:00:00 [facility] Zoster Vaccine 2018-01-18 Completed University of Recombinant 00:00:00 [facility] Zoster Vaccine 2018-01-18 Completed University of Recombinant 00:00:00 [facility] Zoster Vaccine 2018-01-18 Completed University of Recombinant 00:00:00 [facility] Zoster Vaccine 2018-01-18 Completed University of Recombinant 00:00:00 [facility] Zoster Vaccine 2018-01-18 Completed University of Recombinant 00:00:00 [facility] TDAP Unknown Completed [facility] Zoster Vaccine Unknown Completed [facility] SARS-COV-2 COVID-19 Unknown Completed Unive rsity of MODERNA 12+ YRS [facility] ical VACCINE Branch TDAP Unknown Completed [facility] Zoster Vaccine Unknown Completed [facility] SARS-COV-2 COVID-19 Unknown Completed Unive rsity of MODERNA 12+ YRS [facility] VACCINE Branch TDAP Unknown Completed [facility] Zoster Vaccine Unknown Completed [facility] SARS-COV-2 COVID-19 Unknown Completed Unive rsity of MODERNA 12+ YRS [facility] ical VACCINE Branch TDAP Unknown Completed [facility] Zoster Vaccine Unknown Completed [facility] SARS-COV-2 COVID-19 Unknown Completed Unive rsity of MODERNA 12+ YRS [facility] ical VACCINE Branch TDAP Unknown Completed [facility] Zoster Vaccine Unknown Completed [facility] SARS-COV-2 COVID-19 Unknown Completed Unive rsity of MODERNA 12+ YRS [facility] ical VACCINE Branch TDAP Unknown Completed [facility] Zoster Vaccine Unknown Completed [facility] SARS-COV-2 COVID-19 Unknown Completed Unive rsity of MODERNA 12+ YRS [facility] ical VACCINE Branch Vital Signs Vital Name Observation Time Observation Value Comments Source Systolic blood 2023-04-29 01:21:00 126 mm[Hg] Univer sity of pressure [facility] Diastolic blood 2023-04-29 01:21:00 85 mm[Hg] Unive rsity of pressure [facility] Branch Heart rate 2023-04-29 01:21:00 86 /min [facility] [place] [facility] [place] Body temperature 2023-04-29 01:21:00 37.11 Aleida Univ ersity of [facility] Respiratory rate 2023-04-29 01:21:00 18 /min Univ ersity of [facility] Oxygen saturation in 2023-04-29 01:21:00 100 /min University Arterial blood by [facility] Pulse oximetry Branch Systolic blood 2023-04-05 15:37:00 104 mm[Hg] Univer sity of pressure [facility] Diastolic blood 2023-04-05 15:37:00 64 mm[Hg] Unive rsity of pressure [facility] Heart rate 2023-04-05 15:37:00 75 /min [facility]i ty [facility] Body height 2023-04-05 15:37:00 154.9 cm [facility] Body weight 2023-04-05 15:37:00 53.842 kg [facility] BMI 2023-04-05 15:37:00 22.43 kg/m2 [facility] Systolic blood 2022-11-17 16:17:00 142 mm[Hg] Univer sity of pressure [facility] Diastolic blood 2022-11-17 16:17:00 56 mm[Hg] Unive rsity of pressure [facility] Branch Heart rate 2022-11-17 16:17:00 52 /min [facility]i ty [facility] Body height 2022-11-17 16:16:00 162.6 cm [facility] Body weight 2022-11-17 16:16:00 62.551 kg [facility] BMI 2022-11-17 16:16:00 23.67 kg/m2 [facility] Systolic blood 2022-03-21 15:34:00 138 mm[Hg] Univer sity of pressure [facility] Diastolic blood 2022-03-21 15:34:00 72 mm[Hg] Unive rsity of pressure [facility] Heart rate 2022-03-21 15:34:00 64 /min [facility] [place] Body height 2022-03-21 15:34:00 154.9 cm [facility] Body weight 2022-03-21 15:34:00 66.679 kg [facility] BMI 2022-03-21 15:34:00 27.78 kg/m2 [facility] Oxygen saturation in 2022-03-21 15:34:00 98 /min [facility] Arterial blood by [facility] Pulse oximetry Branch BP Diastolic 2020-09-14 00:00:00 62 mm[Hg] [facility] edical Height 2020-09-14 00:00:00 61 [in_i] [facility] BMI (Body Mass 2020-09-14 00:00:00 26.5 kg/m2 [facility] Index) BP Systolic 2020-09-14 00:00:00 116 mm[Hg] [facility] Body Weight 2020-09-14 00:00:00 140 [lb_av] [facility] Procedures Procedure Date / Time Performing Clinician Source Performed NOTICE OF PRIVACY 2023-04-29 01:01:15 Doctor Alexandre, [facility] PRACTICES [facility] CONSENT/REFUSAL FOR 2023-04-29 01:00:55 [facility] DIAGNOSIS AND TREATMENT [facility] XR HIPS 2 VW BILATERAL 2023-04-05 15:47:45 [facility] W I 123 2023-04-04 20:09:00 Jovany Varela [facility] PATIENT FINANCIAL 2022-11-17 16:08:44 Doctor Unassigned, [facility] POLICY [facility] CONSENT/REFUSAL FOR 2022-03-21 15:31:03 [facility], [facility] DIAGNOSIS AND TREATMENT [facility] ASSIGNMENT OF BENEFITS 2021-09-01 15:36:52 [facility] ASSIGNMENT OF BENEFITS 2021-08-04 20:54:34 Doctor Unassigned, [facility] Hysterectomy with [facility] O[facility]here[facility] [...] Planned Date Details Comments Source Future Scheduled 2023-05-05 65+ PNEUMOCOCCAL [facility] Test 23:22:35 VACCINE (1 - PCV) [code = 65+ PNEUMOCOCCAL VACCINE (1 - PCV)] Future Scheduled 2023-05-05 SHINGLES VACCINES (2 [facility] Test 23:22:35 of 2) [code = SHINGLES VACCINES (2 of 2)] Future Scheduled 2023-04-28 65+ PNEUMOCOCCAL [facility] Test 19:03:09 VACCINE (1 - PCV) [code = 65+ PNEUMOCOCCAL VACCINE (1 - PCV)] Future Scheduled 2023-04-28 SHINGLES VACCINES (2 [facility] Test 19:03:09 of 2) [code = SHINGLES VACCINES (2 of 2)] Future Scheduled 2023-04-04 65+ PNEUMOCOCCAL [facility] Test 14:58:40 VACCINE (1 - PCV) [code = 65+ PNEUMOCOCCAL VACCINE (1 - PCV)] Future Scheduled 2023-04-04 SHINGLES VACCINES (2 [facility] Test 14:58:40 of 2) [code = SHINGLES VACCINES (2 of 2)] Diagnostic Test 2020-09-15 urinalysis, complete [facility] Pending 00:00:00 [code = urinalysis, complete] Diagnostic Test 2020-09-14 urinalysis, dipstick [facility] Pending 00:00:00 [code = urinalysis, dipstick] Encounters Start End Encounter Admission Attending Care Care Encounter Source Date/Time Date/Time Type Type Clinicians Facility Department ID 2022-10-09 Outpatient [facility] [id number] [place] 13:34:25 [id number] [facility] 2022-10-04 Outpatient [facility] [id number] [place] 10:27:02 [id number] [facility] 2022-10-02 Outpatient [facility] [id number] [place] 09:15:23 [id number] [facility] 2022-10-02 Outpatient [facility] [id number] [place] 07:21:02 [id number] [facility] 2022-09-20 Outpatient [facility] [id number] [place] 09:46:40 [id number] [facility] 2021-04-05 Emergency [facility] [id number] Univers 02:59:47 ity [facility] 2021-04-04 Emergency [facility] [id number] Univers 22:05:[facility] 2021-04-04 Inpatient R ELIZABETH [facility] SOR [id number] [facility]03 Emergency [facility] [id number] Univers 05:23:20 [facility] 2023-05-02 2023-05-02 Outpatient R JOHNSONSTEVENIG [facility] [id number] Univers 13:15:00 13:15:00 STEVEN JOHNSONIG [facility] 2023-04-30 2023-04-30 Outpatient R [facility] [id number] Univers 08:00:00 08:00:00 [facility] 2023-04-28 2023-04-28 Emergency X ROSYMICHELLEYohana [facility] ERT [id number] Univers 19:26:00 19:42:00 TENZIN [facility] 2023-04-28 2023-04-28 [facility] [id number] Univers 19:26:00 19:42:00 Tenzin CHAVIRA [id number] i [facility] 4.2.7.2.686 [facility] [id number] [facility] 084 Branch 2023-04-20 2023-04-20 Outpatient FOG_Stramel AOSM AOSM [id number] [place] 00:00:00 00:00:00 _Hernandez [id number] [facility] 2023-04-11 2023-04-11 Outpatient FOG_Stramel AOSM AOSM [id number] [place] 00:00:00 00:00:00 _Hernandez [id number] [facility] 2023-04-11 2023-04-11 Outpatient FOG_Stramel AOSM AOSM [id number] [place] 00:00:00 00:00:00 _Yury_ALANIS [id number] [facility] 2023-04-05 2023-04-05 [facility] [id number] Univers 10:36:44 23:59:00 Encounter Marta Flores [facility] [id number] ity of [place] 4.2.7.2.686 Guillermo as OSWALDO?BLEA [id number] La dicronaldo RAINEY 809 [facility] OFFICE [facility] 2023-04-05 2023-04-05 [facility]patient [facility] [id number] Univers 10:45:00 10:53:32 MARTA JOHNSON [facility] 2023-04-05 2023-04-05 Office [facility] [id number] Univers 10:45:00 10:53:32 Visit Marta [facility] [id number] it y of [place] 4.2.7.2.686 Guillermo as OSWALDO?BLEA [id number] La dical REDD 198 [facility] OFFICE [facility] 2023-04-04 2023-04-[address]840[address]1 [id number] Methodi 13:18:36 23:59:00 Encounter Jovany Dougherty [id number] 3.430.2.7 Hospit a .3.630067 l .8 2023-04-04 2023-04-[address]1 [id number] Methodi 13:18:36 23:59:00 Encounter Jovany Dougherty [id number] 3.430.2.7 Hospit a .3.310164 l .8 2023-04-04 2023-04-[address]840[address]1 [id number] Methodi 08:55:35 13:17:00 Encounter Jovany [id number] 3.430.2.7 Hospit a .3.345446 l .8 2023-04-04 2023-04-[address]1 [id number] Methodi 08:55:35 13:17:00 Encounter Jovany CastroGlo [id number] 3.430.2.7 Hospit a .3.640131 l .8 2023-03-07 2023-03-07 Outpatient LUIS Harris [facility] [id number] [facility] 09:47:00 09:47:00 Suman [facility] 2023-03-05 2023-03-[facility] 1.2.840.1 [id number] Methodi 00:00:00 00:00:00 Orders Jovany MatthewGlo [id number] 3.430.2.7 Hospit a .3.351074 l .8 2023-03-05 2023-03-[address] [facility] [place] 1.2.840.1 [id number] 2 [id number] Methodi 00:00:00 00:00:00 Orders Jovany Dougherty [id number] 3.430.2.7 Hospit a .3.490303 l .8 2023-01-08 2023-01-08 Outpatient LUIS Harris [facility] [id number] [facility] 06:18:00 06:18:00 Suman 01 [facility] 2023-01-03 2023-01-03 Outpatient FOG_Stramel AOSM AOSM [id number] [place] 00:00:00 00:00:00 _Yury_ALANIS [id number] [facility] 2023-01-03 2023-01-03 Outpatient FOG_Stramel AOSM AOSM [id number] [place] 00:00:00 00:00:00 _[place] [id number] [facility] 2023-01-03 2023-01-03 Outpatient FOG_Stramel AOSM AOSM [id number] [place] 00:00:00 00:00:00 _Hernandez [id number] [facility] 2023-01-03 2023-01-03 Outpatient FOG_Stramel AOSM AOSM [id number] [place] 00:00:00 00:00:00 _Yury_NP [id number] [facility] 2023-01-03 2023-01-03 Outpatient FOG_Stramel AOSM AOSM [id number] [place] 00:00:00 00:00:00 _Yury_NP [id number] [facility] 2023-01-03 2023-01-03 Outpatient FOG_Stramel AOSM AOSM [id number] [place] 00:00:00 00:00:00 _Yury_NP [id number] [facility] 2023-01-03 2023-01-03 Outpatient FOG_Stramel AOSM AOSM [id number] [place] 00:00:00 00:00:00 _Yury_NP [id number] [facility] 2023-01-03 2023-01-03 Outpatient FOG_Stramel AOSM AOSM [id number] Elizabeth 00:00:00 00:00:00 _Yury_NP [id number] [facility] 2023-01-02 2023-01-02 Outpatient FOG_Stramel AOSM AOSM 626 3484-20 Elizabeth 00:00:00 00:00:00 _Yury_NP 585315 [facility] 2023-01-01 2023-01-01 Outpatient FOG_Stramel AOSM AOSM 626 [id number] Elizabeth 00:00:00 00:00:00 _Yury_NP 518346 Orth o[facility] dic Sports Medicin e 2022-11-17 2022-11-17 Office Leona [facility] 1.2.840.114 [id number] Univers 11:15:00 11:30:00 Visit [facility] 350.1.13.10 it y of [place] 4.2.7.2.686 Guillermo as OSWALDO?BLEA [phone] La dical REDD [address] [place] [address] MEDICAL OFFICE BUILDING 2022-11-17 2022-11-17 Outpatient R LEONA [facility] [id number] Univers 11:15:00 11:15:00 ARLEY carl [facility] 2022-11-17 2022-11-17 Orders Doctor URIBE 1.2.840.114 [id number] Univers 00:00:00 00:00:00 Only Unassigned, DIANA 350.1.13.10 ity of [facility] 4.2.7.2.686 Guillermo as [phone] [address] 2022-10-06 2022-10-06 Outpatient MIGEL [facility] [id number] [place] 10:30:00 10:30:00 Health 2022-04-06 2022-04-06 Outpatient [facility] [id number] Univers 14:30:00 14:30:00 MARTA gallo [facility] 2022-03-31 2022-03-31 Outpatient Yohana [facility] [id number] Univers 13:45:00 15:23:01 MARTAJAIME gallo [facility] 2022-03-31 2022-03-31 Ancillary Lucia Laws [facility] 1.2.84 0.114 [id number] Univers 13:45:00 15:23:01 Visit Marta Johnson 350.1.13.10 it[place] of [place] [phone] La dical NAL 179 [facility] 2022-03-21 2022-03-21 Outpatient Yohana J[facility]NSON [facility] [id number] Univers 10:44:38 23:59:00 MARTA gallo [facility] 2022-03-21 2022-03-21 Office [facility] 1.2.840.114 [id number] Univers 11:00:00 11:26:31 Visit Arley [facility] 350.1.13.10 it y of [place] 4.2.7.2.686 Guillermo as OSWALDO?BLEA [phone] Me dical KNEY 198 [facility] OFFICE [facility] 2022-03-21 2022-03-21 Orders Doctor URIBE 1.2.840.114 [id number] Univers 00:00:00 00:00:00 Only Unassigned, DIANA 350.1.13.10 [place] of [place] [facility] 4.2.7.2.686 Guillermo as [phone] [address] 2021-09-18 2021-09-18 Outpatient [facility] PRIV 527 [id number] [facility] 01:20:00 01:20:00 _Lara [id number] [facility] 2021-09-01 2021-09-01 Contracting Support Specialist 1, Adc Lab [facility] 1.2.840.114 [id number] Univers 10:15:00 10:30:00 Visit Matilde Prashanth CHAVIRA 350.1.13.10 ity [facility] 4.2.7.2.686 [facility] [phone] [address] 2021-09-01 2021-09-01 Outpatient R [facility] [id number] Univers 10:15:00 10:15:00 PRASHANTH gallo [facility] 2021-09-01 2021-09-01 Orders Doctor URIBE 1.2.840.114 [id number] Univers 00:00:00 00:00:00 Only Unassigned, DIANA 350.1.13.10 [place] of [place] HOSPITAL 4.2.7.2.686 Guillermo as [phone] [address] 2021-08-21 2021-08-21 Outpatient [facility] PRIV 527 [id number] [facility] 12:58:00 12:58:00 _Lara [id number] [facility] 2021-08-04 2021-08-04 Laboratory Only, Adc Test [facility] 1.2.840. 114 [id number] Univers 15:15:00 15:30:00 Only Etienne Abdi 350.1.13.10 ity of [place] 4.2.7.2.686 [facility] [phone] [address] 2021-08-04 2021-08-04 Outpatient [facility] [id number] Univers 15:15:00 15:15:00 ETIENNE gallo [facility] 2021-08-04 2021-08-04 Orders Doctor RONY Kern2.840.114 [id number] Univers 00:00:00 00:00:00 Only Unassigned, DIANA 350.1.13.10 ity of [facility] 4.2.7.2.686 Guillermo as [phone] [facility] [address] [place] 2021-07-24 2021-07-24 Outpatient [facility] PR[facility] PRIV 527 [id number] [facility] 01:10:00 01:10:00 _Miller-M [id number] [facility] 2021-06-22 2021-06-22 Outpatient [facility] PRIV PRIV 527 6335- [facility] 11:11:00 11:11:00 _Miller-M [id number] [facility] 2021-06-21 2021-06-21 Outpatient [facility] PRIV PRIV 527 6335- [facility] 10:38:00 10:38:00 _Miller-M [id number] [facility] 2021-06-07 2021-06-07 Ancillary Yoselin Francisco [facility] 1.2.840 .114 [id number] Univers 08:40:00 09:20:00 Visit Marta Johnson 350.1.13.10 it[place] of [place] [phone] La dical NAL 179 [facility] 2021-06-07 2021-06-07 Outpatient R ELIZABETH [facility] [id number] Univers 08:40:00 08:40:00 MARTA ity of [facility] 2021-06-02 2021-06-02 Ancillary Yoselin Francisco [facility] 1.2.840 .114 [id number] Univers 08:00:00 08:40:00 Visit Marta Johnson 350.1.13.10 ity of [facility] [place] [phone] La dical NAL 179 [facility] 2021-06-01 2021-06-01 Ancillary Kimberly Mcgovern [facility] 1 .2.840.114 [id number] Univers 08:00:00 10:11:08 Visit Marta Johnson 350.1.13.10 ity of [facility] [place] [phone] La dical NAL [address] [facility] 2021-05-26 2021-05-26 Ancillary Yoselin Francisco [facility] 1.2.840 .114 [id number] Univers 08:00:00 08:40:00 Visit Marta Johnson Mark CHAVIRA 350.1.13.10 ity of [place] [phone] La dical NAL 179 [facility] 2021-05-19 2021-05-19 Outpatient R ELIZ[facility]ETH [facility] [id number] Univers 09:00:00 13:36:59 MARTA ity of [facility] 2021-05-19 2021-05-19 Ancillary Yoselin Francisco [facility] 1.2.840 .114 [id number] [facility] 09:00:00 13:36:59 Visit Elizabeth Marta CHAVIRA 350.1.13.10 ity of [place] [phone] La dical NAL 179 [facility] 2021 2021 Ancillary Yoselin Francisco [facility] 1.2.840 .114 [id number] Univers 08:24:27 09:04:27 Visit Marta Johnson 350.1.13.10 ity of [place] [phone] La dical NAL 179 [facility] 2021-05-12 2021-05-12 Ancillary Maki Lewis [facility] 1.2. 840.114 [id number] Univers 09:07:45 09:47:45 Visit Marta Johnson 350.1.13.10 ity of [place] [phone] La dical NAL [address] [facility] 2021-05-10 2021-05-10 Ancillary Yoselin Francisco [facility] 1.2.840 .114 [id number] Univers 08:14:36 09:10:52 Visit Marta Johnson 350.1.13.10 ity of [place] [phone] Me dical NAL [address] BU[address]ING 2021-05-04 2021-05-04 Ancillary Nolan Yoselin Rowan [facility] 1.2.840 .114 [id number] Univers 09:00:17 09:40:17 Visit Marta Johnson 350.1.13.10 ity of [place] [phone] Me dical NAL [address] [facility] 2021-05-02 2021-05-02 Outpatient R ELIZABETH [facility] [id number] Univers 09:20:00 10:49:18 MARTA ity of [facility] 2021-05-02 2021-05-02 Ancillary Kimberly Mcgovern [facility] 1 .2.840.114 [id number] [facility] 08:55:20 10:49:18 Visit Marta Johnson 350.1.13.10 ity of [place] [phone] La dical NAL [address] [facility] 2021-04-27 2021-04-27 Ancillary Joshua Maki A [facility] 1.2. 840.114 [id number] [facility] 10:25:37 11:05:37 Visit Marta Johnson 350.1.13.10 ity of [place] [phone] La dical NAL [address] [facility] 2021-04-26 2021-04-26 Ancillary NolanTeresaYoselin K [facility] 1.2.840 .114 [id number] [facility] 11:21:18 12:01:18 Visit Marta Johnson 350.1.13.10 ity of [place] [phone] La dical NAL [address] BUILDING 2021-04-20 2021-04-20 Ancillary Nolan Yoselin Rowan [facility] 1.2.840 .114 [id number] Univers 08:55:10 09:35:10 Visit Marta Johnson 350.1.13.10 ity of [place].2.[place] [phone] La dical NAL [address] BUILDING 2021-04-13 2021-04-13 Ancillary Yoselin Francisco [facility] 1.2.840 .114 [id number] [facility] 09:00:14 09:40:14 Visit Marta Johnson 350.1.13.10 ity of [place] [phone] La dical NAL [address] BUILDING 2021-04-11 2021-04-11 Ancillary Sandra Thompson [facility] 1.2.840. 114 [id number] [facility] 08:56:10 16:47:24 Visit Marta Johnson 350.1.13.10 ity of [place] [phone] La dical NAL [address] BUILDING 2021-04-08 2021-04-08 Ancillary Lucia Laws [facility] 1.2.84 0.114 [id number] [facility] 08:59:21 09:39:21 Visit Marta Johnson 350.1.13.10 ity of [place].2.[place] [phone] La dical NAL [address] BUILDING 2021-04-06 2021-04-06 Ancillary Yoselin Francisco [place] 1.2.840 .114 [id number] [facility] 09:04:55 09:44:55 Visit Marta Johnson 350.1.13.10 ity of [place].2.[place] [phone] La dical NAL [address] BUILDING 2021-04-04 2021-04-04 Ancillary Lucia Laws [facility] 1.2.84 0.114 [id number] [facility] 10:12:57 10:52:57 Visit Marta Johnson 350.1.13.10 ity of [place] [phone] La dical NAL [address] BUILDING 2021-04-01 2021-04-01 Outpatient R ELIZABETH [facility] [id number] Univers 13:40:00 14:26:09 MARTA gallo [facility] 2021-04-01 2021-04-01 Ancillary Yoselin Francisoc [facility] 1.2.840 .114 [id number] Univers 13:24:12 14:26:09 Visit Marta Johnson 350.1.13.10 ity of [facility] 4.2.[place] [phone] [facility] 179 [facility] 2021-03-29 2021-03-29 Ancillary Joshua Maki A [facility] 1.2. 840.114 [id number] Univers 09:07:25 09:47:25 Visit Marta Johnson 350.1.13.10 ity of [place] [phone] [facility] 179 [facility] 2021-03-25 2021-03-25 [facility] 1.2.840.114 [id number] Univers 10:25:00 23:59:00 Encounter Marta [facility] 350.1.13.10 ity of [place] 4.2.7.2.686 Guillermo as Oswaldo?Blea [phone] [facility] 809 [facility] 2021-03-25 2021-03-25 Outpatient R LEONA [facility] [id number] Univers 10:45:00 10:45:00 ARLEY gallo [facility] 2021-03-25 2021-03-25 Office Leona [facility] 1.2.840.114 [id number] Univers 10:10:35 10:25:35 Visit Arley S Health 350.1.13.10 it y of [place] 4.2.7.2.686 Guillermo as Oswaldo?Blea [phone] [facility] 198 [facility] Office [facility] 2021-03-17 2021-03-17 Ancillary Jay Savannahcarl Angel [facility] 1.2.840. 114 [id number] Univers 13:26:55 15:19:10 Visit Marta Johnson 350.1.13.10 ity of [place] [phone] La dical nal [address] Building 2021-03-15 2021-03-15 Ancillary Sandra Thompson [facility] 1.2.840. 114 [id number] Univers 13:35:10 14:15:10 Visit oJhnsonMarta randall 350.1.13.10 ity of [place].2.[place] [phone] La dical nal [address] Building 2021-03-10 2021-03-10 Ancillary Viki Willett [facility] 1.2.8 40.114 [id number] Univers 13:32:20 14:12:20 Visit JohnsonMarta randall 350.1.13.10 ity of [place].2.[place] [phone] La dical nal [address] Building 2021-03-08 2021-03-08 Ancillary Kimberly Mcgovern [place] 1 .2.840.114 [id number] Univers 13:38:07 14:18:07 Visit Marta Johnson 350.1.13.10 ity of [place].2.[place] [phone] La dical nal [address] Building 2021-03-08 2021-03-08 Transition Venkat Simental 1.2.840.114 [id number] Univers 00:00:00 00:00:00 of Care Jacquie Moralez 350.1.13.10 it y of [place].2.[place] [phone] [facility] [address] 2021-03-07 2021-03-07 Telephone Johnny [facility] 1.2.818.695 [id number] Univers 00:00:00 00:00:00 [employer] 350.1.13.10 it y of [place].2.[place] [phone] [facility] Medical [address] Office Building 2021-03-07 2021-03-07 Patient Doctor RONY 1.2.840.114 [id number] Univers 00:00:00 00:00:00 Secure Msg Unassigned, DIANA 350.1.13.10 [place] of [place] H[facility] 4.2.7.2.686 Guillermo as [phone] [facility] [address] [place] 2021-03-04 2021-03-06 Hospital Gratn Haskins [facility] 1.2.840.1 14 [id number] Univers 09:31:00 12:57:00 Encounter Colby Monson 350.1.13.10 ity of [place] [phone] [facility] [address] [place] 2021-03-01 2021-03-01 Ancillary Viki Willett [facility] 1.2.8 40.114 [id number] Univers 14:25:13 15:05:13 Visit Marta Johnson 350.1.13.10 ity of [place] [phone] La dicronaldo champion 179 [facility] 2021-03-01 2021-03-01 Orders Doctor RONY 1.2.840.114 [id number] Univers 00:00:00 00:00:00 Only Unassigned, DIANA 350.1.13.10 it[place] of [place] HOSPITAL 4.2.7.2.686 Guillermo as [phone] [facility] [address] [place] 2021-02-24 2021-02-24 Office Leona [facility] 1.2.840.114 [id number] Univers 10:19:44 10:34:44 Visit [facility] 350.1.13.10 it y of [place] 4.2.7.2.686 Guillermo as Oswaldo?Blea [phone] La dical kney [address] [place] Medical Office Building 2021-02-24 2021-02-24 Outpatient R LEONA [facility] [id number] Univers 10:30:00 10:30:00 ARLEY ity [facility] 2021-02-22 2021-02-22 Ancillary Yoselin Francisco [facility] 1.2.840 .114 [id number] Univers 13:03:21 14:22:13 Visit Marta Johnson 350.1.13.10 ity of [place] [phone] Me dical nal 179 [facility] 2021-02-13 2021-02-13 Emergency Rodrigo, [facility] 1.2.840.114 [id number] Univers 13:21:00 13:40:00 Светлана Chavira 350.1.13.10 ity of [place] [phone] [facility] [address] [place] 2021-02-10 2021-02-10 Outpatient R LUCRECIA [facility] [id number] Univers 15:50:00 15:50:00 GO gallo [facility] 2021-02-10 2021-02-10 Imm/Inj Nurse, Adc Pob Immunization [facility] 1.2.840.114 [id number] Univers 14:30:28 14:30:37 Visit Go Singer 350.1.13 .10 ity of [place] [phone] La dical nal 421 [facility] 2021-02-10 2021-02-10 Ancillary Maki Lewis [facility] 1.2. 840.114 [id number] Univers 13:41:23 14:21:23 Visit Marta Johnson 350.1.13.10 ity of [place] [phone] La dical nal 179 [facility] 2021-02-09 2021-02-09 Ancillary Maki Lewis [facility] 1.2. 840.114 [id number] Univers 13:04:52 13:44:52 Visit Marta Johnson 350.1.13.10 ity of [place].2.[place] [phone] Me dical nal 179 [facility] 2021-02-03 2021-02-03 Ancillary Yoselin Francisco [facility] 1.2.840 .114 [id number] Univers 13:41:56 14:24:39 Visit JohnsonMarta 350.1.13.10 ity of [place] 4[place].2.[place] [phone] La dical nal 179 [facility] 2021-02-03 2021-02-03 Outpatient [facility] [id number] Univers 13:40:00 13:40:00 ity of [facility] 2021-02-01 2021-02-01 Ancillary Maki Lewis [facility] 1.2. 840.114 [id number] Univers 14:12:47 14:52:47 Visit Marta Johnson 350.1.13.10 it[place] of [place] [phone] La dical nal 179 [facility] 2021-01-27 2021-01-27 Ancillary Viki Monroe [facility] 1.2.840. 114 [id number] Univers 12:58:46 13:42:22 Visit Marta Johnson 350.1.13.10 ity of [place] [phone] La dical nal 179 [facility] 2021-01-27 2021-01-27 [facility] [id number] Univers 13:00:00 13:00:00 MARTA gallo [facility] 2021-01-24 2021-01-24 Outpatient [facility] [id number] Univers 13:45:00 13:45:00 MARTA gallo [facility] 2021-01-10 2021-01-10 [facility] 1.2.840.114 [id number] Univers 13:54:40 23:59:00 Encounter Marta Chavira 350.1.13.10 ity of [place] [phone] [facility] [address] [place] 2021-01-10 2021-01-10 [facility] 1.2.135.108 [id number] Univers 14:27:04 15:14:37 Visit Marta Flores [facility] 350.1.13.10 it y of Surgical 4.2.7.2.686 Guillermo as Specialti [phone] La dical es 198 [facility] 2021-01-10 2021-01-10 Outpatient R ELIZABETH [facility] [id number] Univers 14:45:00 14:45:00 MARTA ity of [facility] 2021-01-10 2021-01-10 Telephone Elizabeth [facility] 1.2.840.114 [id number] Univers 00:00:00 00:00:00 Marta Flores [facility] 350.1.13.10 it y of Surgical 4.2.7.2.686 Guillermo as Specialti [phone] La dical es 198 [facility] 2021-01-10 2021-01-10 Orders Doctor RONY 1.2.840.114 [id number] Univers 00:00:00 00:00:00 Only Unassigned, DIANA 350.1.13.[address] [facility] 4.2.7.2.686 Guillermo as [phone] [facility] [address] 2020-12-31 2020-12-31 Transition Zen Simentalaline 1.2.840.114 [id number] Univers 00:00:00 00:00:00 of Care Jacquie Gibbonsy 350.1.13.10 it y of [place] [phone] [facility] [address] 2020-12-27 2020-12-30 Hospital Johnson Marta Mark [facility] 1.2.840 .114 [id number] Univers 06:41:00 15:15:00 Encounter Arley Delgadillo 350.1.13.10 ity of [place] [phone] [facility] [address] 2020-12-27 2020-12-27 Surgery Johnson [facility] 1.2.396.692 [id number] Univers 07:30:00 10:23:00 Marta Chavira 350.1.13.10 i ty of [place] Surgical [phone] [facility] [address] 2020-12-27 2020-12-27 Orders Doctor RONY 1.2.840.114 [id number] Univers 00:00:00 00:00:00 Only Unassigned, DIANA 350.1.13.[address] [facility] 4.2.7.2.686 Guillermo as [phone] [facility] [address] 2020-12-24 2020-12-24 [facility] 1.2.840.114 [id number] Univers 09:29:32 23:59:00 Encounter Marta Chavira 350.1.13.10 ity of [place] [phone] [facility] [address] 2020-12-24 2020-12-24 Contracting Support Specialist Jeffery, Adc Lab Main [facility] 1.2.8 40.114 [id number] Univers 09:28:46 09:43:46 Visit Elizabeth Marta Chavira 350.1.13.10 ity of [place] [phone] La dical nal [address] [place] [address] 2020-12-24 2020-12-24 Outpatient [facility] [id number] Univers 08:45:00 08:45:00 MARTAJAIME gallo [facility] 2020-12-23 2020-12-23 Outpatient [facility] [id number] Univers 13:00:00 13:00:00 MARTAJAIME gallo [facility] 2020-12-22 2020-12-22 Outpatient R [facility] [id number] Univers 09:45:00 09:45:00 MARTA cleo [facility] 2020-12-22 2020-12-22 Contracting Support Specialist Jeffery, Adc Lab Main [facility] 1.2.8 40.114 [id number] Univers 09:28:20 09:43:20 Visit JohnsonMarta 350.1.13.10 it[place] of [place] [phone] La dical nal 353 [facility] 2020-12-22 2020-12-22 Orders Doctor URIBE 1.2.840.114 [id number] Univers 00:00:00 00:00:00 Only Unassigned, DIANA 350.1.13.10 [place] of [place] HOSPITAL 4.2.7.2.686 Guillermo as [phone] [address] 2020-12-20 2020-12-20 Prep For Johnson [facility] 1.2.840.114 [id number] Univers 00:00:00 00:00:00 Surgery Marta Flores [facility] 350.1.13.10 it y of Surgical 4.2.7.2.686 Guillermo as Specialti [phone] La dical es 198 [facility] 2020-12-16 2020-12-16 Office Leona [facility] 1.2.840.114 [id number] Univers 13:40:52 13:55:52 Visit Arley Dow [facility] 350.1.13.10 it y of Surgical 4.2.7.2.686 Guillermo as Specialti [phone] La dical es 198 [facility] 2020-12-16 2020-12-16 Outpatient [facility] [id number] Univers 13:45:00 13:45:00 [facility] 2020-12-16 2020-12-16 Outpatient Yohana [facility] [id number] Univers 13:45:00 13:45:00 [facility] 2020-11-22 2020-11-22 Outpatient R [facility] [id number] Univers 16:15:00 16:15:00 MARTA carl [facility] 2020-11-22 2020-11-22 [facility] 1.2.700.531 [id number] Univers 15:17:32 15:56:16 Visit Marta Flores [facility] 350.1.13.10 it y of Surgical 4.2.7.2.686 Guillermo as Specialti [phone] La dical es 198 [facility] 2020-09-16 2020-09-16 Outpatient [facility]IV [id number] [facility] 11:38:00 11:38:00 _Lara [id number] [facility] 2020-09-14 2020-09-14 Outpatient [facility] PRIV PRIV [id number] [facility] 01:43:00 01:43:00 _Lara [id number] [facility] 2020-09-14 2020-09-14 [facility] [id number] [facility] 00:00:00 00:00:00 [facility] Health - Medic [facility] MD wai: _[address], [address], [place] [address] , Ph. 2020-09-14 2020-09-14 Outpatient [facility] PRIV [id number] 00:00:00 00:00:00 alyciaTootei [id number] [facility] [id number] 2020-08-31 2020-08-31 [facility] [id number] Univers 09:45:50 10:00:50 Visit [facility] [id number] it y of Surgical [id number] Guillermo as Specialti [phone] La dical es 198 [facility] 2020-08-31 2020-08-31 [facility] [id number] Univers 10:00:00 10:00:00 ARLEY gallo [facility] 2020-08-16 2020-08-16 Office [facility] [id number] Univers 13:36:09 14:33:13 [facility] [id number] [facility] y [facility] Surgical [id number] Guillermo as Specialti [phone] La dical es 198 [facility] 2020-08-16 2020-08-16 Outpatient R [facility] [id number] Univers 14:00:00 14:00:00 MARTA gallo [facility] 2020-08-16 2020-08-16 [facility]phone [facility] [id number] Univers 00:00:00 00:00:00 Marta Flores [place] [id number] i esperanza knight [id number] [phone] Me dical nal 198 [facility] 2020-08-13 2020-08-13 [facility]phone [facility] [id number] Univers 00:00:00 00:00:00 Marta Buckley [id number] it y of Surgical [id number] Guillermo as Specialti [phone] Me dical es 198 [facility] 2020-08-12 2020-08-12 [facility] [id number] Univers 16:16:00 18:33:00 Adwoa [place] [id number] i ty of [place] 4.2.7.2.686 [facility] [phone] [facility] [address] [place] 2020-08-12 2020-08-12 Orders Doctor RONY 1.2.840.114 [id number] Univers 00:00:00 00:00:00 Only Unassigned, DIANA 350.1.13.[address] [facility] 4.2.7.2.686 Guillermo as [phone] [facility] [address] [place] 2020-06-02 2020-06-02 Office [facility] 1.2.050.583 [id number] Univers 13:10:39 13:46:45 Visit Marta Buckley 350.1.13.10 it y of Surgical 4.2.7.2.686 Guillermo as Specialti [phone] La dical es 198 [facility] 2020-06-02 2020-06-02 [facility] [id number] Univers 13:30:00 13:30:00 MARTAJAIME gallo [facility] 2020-06-01 2020-06-01 Outpatient [facility] [id number] Univers 14:21:09 23:59:00 MARTAJAIME gallo [facility] 2020-06-01 2020-06-01 [facility] 1.2.840.114 [id number] Univers 14:21:09 23:59:00 Encounter Marta Chavira 350.1.13.10 ity of [place] 4.2.7.2.686 [facility] [phone] [facility] [address] [place] 2020-05-07 2020-05-07 Office [facility] [id number] Univers 08:18:47 09:19:17 Visit Marta [facility] 350.1.13.10 it y of Surgical 4.2.7.2.686 Guillermo as Specialti [phone] Me dical es 198 [facility] 2020-05-07 2020-05-07 Outpatient R [facility] [id number] Univers 08:30:00 08:30:00 MARTA gallo [facility] 2020-05-07 2020-05-07 Telephone [facility] 1.2.840.114 [id number] Univers 00:00:00 00:00:00 Marta [facility] 350.1.13.10 it y of Surgical 4.2.7.2.686 Guillermo as Specialti [phone] Me dical es 198 [facility] 2020-03-25 2020-03-25 Telephone [facility] 1.2.164.241 [id number] Univers 00:00:00 00:00:00 Arley Dow [facility] 350.1.13.10 it y of Surgical 4.2.7.2.686 Guillermo as Specialti [phone] Me dical es 198 [facility] 2020-03-15 2020-03-15 Outpatient [facility] [id number] Univers 16:00:00 16:00:00 MARTA gallo [facility] 2020-03-15 2020-03-15 Office Arley Delgadillo [facility] 1.2.840.114 [id number] Univers 15:44:53 15:59:53 Visit Marta Johnson [employer] 350.1.13.10 ity of Surgical 4.2.7.2.686 Guillermo as Specialti [phone] Me dical es 198 [facility] 2020-02-26 2020-02-26 [facility] 1.2.840.114 [id number] Univers 14:09:46 23:59:00 Encounter Marta [facility] 350.1.13.10 ity of Surgical 4.2.7.2.686 Guillermo as Specialti [phone] La dical es 809 [facility] 2020-02-26 2020-02-26 Office Elizabeth [facility] 1.2.328.441 [id number] Univers 13:13:37 15:25:31 Visit Marta Buckley 350.1.13.10 it y of Surgical 4.2.7.2.686 Guillermo as Specialti [phone] La dical es 198 [facility] 2020-02-26 2020-02-26 Outpatient R [facility] [id number] Univers 13:30:00 13:30:00 MARTA gallo [facility] 2020-02-26 2020-02-26 Orders Doctor RONY 1.2.840.114 [id number] Univers 00:00:00 00:00:00 Only Unassigned, DIANA 350.1.13.[address] [facility] 4.2.7.2.686 Guillermo as [phone] [address] 2019-08-13 2019-08-13 Outpatient R [facility] [id number] Univers 13:40:00 13:40:00 MARTA gallo [facility] 2019-07-17 2019-08-12 Ancillary Nolan [facility] 1.2.140.911 [id number] 14:12:49 16:34:23 Visit Yoselin Chavira 350.1.13.10 [place] 4.2.7.2.686 Professio [phone] [address] 2019-07-17 2019-08-12 Ancillary Yoselin Francisco [facility] 1.2.840 .114 [id number] Univers 14:12:49 16:34:23 Visit Marta Johnson 350.1.13.10 [place] [phone] La dical nal 179 [facility] 2019-07-29 2019-07-29 Outpatient R [facility] [id number] Univers 13:00:00 13:00:00 MARTA gallo [facility] 2019-07-23 2019-07-23 Ancillary Yoselin Francisco [facility] 1.2.840 .114 [id number] Univers 13:39:15 14:19:15 Visit Marta Johnson 350.1.13.10 [place]7.2.[place] [phone] La dical nal 179 [facility] 2019-07-21 2019-07-21 Office CHRISTIAN Johnson 1.2.262.628 [id number] [facility] 15:36:27 16:19:42 Visit Marta Flores [facility] 350.1.13.10 it y of Surgical 4.2.7.2.686 Guillermo as Specialti [phone] La dical es 198 [facility] 2019-07-15 2019-07-15 Ancillary Yoselin Francisco [facility] 1.2.840 .114 [id number] Univers 14:12:07 14:52:07 Visit Marta Johnson 350.1.13.10 [place].7.2.[place] [phone] La dical nal 179 [facility] 2019-07-10 2019-07-10 Ancillary Yoselin Francisco [facility] 1.2.840 .114 [id number] Univers 13:01:35 13:41:35 Visit Marta Johnson 350.1.13.10 [place] of [place]2.7.2.[place] [phone] La dical nal 179 [facility] 2019-07-08 2019-07-08 Ancillary Jose Francisco [facility] 1.2.840. 114 [id number] Univers 15:31:30 16:33:27 Visit Marta Johnson 350.1.13.10 [place]2.7.2.[place] [phone] La dical nal 179 [facility] 2019-07-03 2019-07-03 Ancillary Yoselin Francisco [facility] 1.2.840 .114 [id number] Univers 13:04:32 13:49:32 Visit Marta Johnson 350.1.13.10 [place] of [place]2.7.2.[place] [phone] La dical nal 179 [facility] 2019-06-19 2019-06-19 Ancillary Yoselin FranciscoMB 1.2.840 .114 [id number] [facility] 13:53:57 14:38:57 Visit Marta Johnson Mina 350.1.13.10 [facility] 4.2.7.2.686 Neris Andino [phone] La dical nal [address] Results Test Description Test Time Test Comments Results Result Sourc e Comments NM Brain Spect W PROCEDURE: NM BRAIN Yarsani I 123 Datscan 1 SPECT W I 123 DATSCAN [facility] 21:51:36 INDICATION: Parkinson's disease. COMPARISON: No relevant [...] MRI of the brain, as appropriate. [id number] NM Brain Spect W PROCEDURE: OH BRAIN Yarsani I 123 Datscan 1 SPECT W I 123 DATSCAN [facility] 21:51:36 INDICATION: Parkinson's disease. COMPARISON: No relevant [...] XR FLUORO FOR SPINE INJ 4 15:23:[address] : 1935 Sex: F Patient Name: KD DIGGS Unit No: [id number] EXAMS: CPT CODE: [id number] XR FLUORO FOR SPINE INJ [id number] LUMBAR EPIRADICULAR INJECTION PREOPERATIVE DIAGNOSIS: Lumbar Radiculitis [...] Technologist: YASIR SPICER ARRT Transcribed D/ (1523) t.TALISHAR.[facility] NAME: KD DIGGS [address] PHYS: Suman Santos MD [place], [place] [address] : 1935 AGE: 87 SEX: F LOC: MAME PHONE #: [phone] EXAM DATE: 03/07/2023 STATUS: REG [facility] FAX #: [phone] RAD #: D/C DT PAGE 1 Signed Report Patient Name: KD DIGGS Unit No: [id number] EXAMS: CPT CODE: [id number] XR FLUORO FOR SPINE INJ 43754 (Continued) Orig Print D/T: S: 03/07/2023 (1527) [facility] NAME: KD DIGGS [address] PHYS: Suman Santos MD [place], [place] [address] : 1935 AGE: 87 SEX: F LOC: MAME PHONE #: [phone] EXAM DATE: 03/07/2023 STATUS: REG [facility] FAX #: [phone] RAD #: D/C DT PAGE 2 Signed Report GLUBED 2023-03-07 14:14:00 Test Item Value Reference Range Interpretation Comme nts GLUBED (test code = GLUBED) 108 mg/dL 60-99 H The normal fasting blood glucose range for a non-diabe ticadult is 60-99 mg/dL. Two hours after meals, normal blood glucose levels should beless than 140 mg/dL.Please no te new normal range. [id number] 14:32:00 Test Item Value Reference Range Interpretation Comments GLUBED (test code = GLUBED) 97 mg/dL 60-125 N - XR FLUORO FOR SPINE [id number] 09:07:00 [facility] 1935 Sex: F PatientName: KD DIGGS Unit No: [id number] EXAMS: CPT CODE: [id number] XR FLUORO FOR SPINE INJ 33664 LUMBAR EPIRADICULAR INJECTION PREOPERATIVE DIAGNOSIS: Lumbar Radiculitis [...] PACU in good condition. Image: Image 1 at 0907 Reported and signed by: ADONIS FARAH MD CC: Suman Harris MD Technologist: RENÉ GUERRIER Transcribed D/ (0907) Marco.[facility] NAME: KD DIGGS [address] PHYS: Suman Santos MD [place], [place] [address] : 1935 AGE: 87 SEX: F LOC: MAME PHONE #: [phone] EXAM DATE: 01/08/2023 STATUS: REG [facility] FAX #: [phone] RAD #: D/C DT PAGE 1 Signed Report Patient Name: KD DIGGS Unit No: [id number] EXAMS: CPT CODE: [id number] XR FLUORO FOR SPINE INJ 63447 (Continued) Orig Print D/T: S: 01/08/2023 (0910) [facility] NAME: KD DIGGS [address] PHYS: Suman Santos MD [place], [place] [address] : 1935 AGE: 87 SEX: FACCT NO: [id number] LOC: MAME PHONE #: [phone] EXAM DATE: 01/08/2023 STATUS: REG [facility] FAX #: [phone] RAD #: D/C DT PAGE 2 Signed [id number] 08:52:00 Test Item Value Reference Range Interpretation Comments GLUBED (test code = GLUBED) 111 mg/dL 60-125 N
[2023-05-06] MEDS ORDERED: ONDANSETRON 4 MG/2 ML VIAL ONE (00:28)
[2023-05-06] MEDS ORDERED: HYDROMORPHONE HCL 0.5 MG/0.5 ML INJ ONE ×2 (00:28→08:13)
[2023-05-06] MEDS ORDERED: NA CHLORIDE 0.9% 1,000 ML ONE ×2 (00:28→07:29)
[2023-05-06] MEDS ORDERED: FAMOTIDINE 20 MG/2 ML VIAL IV ONE (00:29)
[2023-05-06 00:44] LABS: Absolute Lymphocytes (CBC) 2.4 K/uL (0.7-4.9); Lymphocytes % 14.3 % (15.3-44.8); MCV 94.3 fL (80-100); MPV 7.5 fL (7.6-11.3); Platelets 262 thou/uL (152-406); RBC Red Blood Cell Count 4.56 M/uL (3.86-4.86)
[2023-05-06 00:59] LABS: Albumin 3.1 g/dL (3.4-5.0); Bilirubin Total 0.5 mg/dL (0.2-1.0); Potassium 3.8 mEq/L (3.5-5.1); Protein, Total 5.9 g/dL (6.4-8.2)
--- NOTE | 2023-05-06 02:38 | ER ---
Nurse's Notes [facility] Name: Yady Diggs Age: 87 yrs Sex: Female : 1935 Arrival Date: 05/05/2023 Time: 23:20 Bed 8 Private MD: Diagnosis: Colitis;Leukocytosis;Abdominal pain, Generalized;Constipation Presentation: 05/05 23:34 Chief complaint: Patient states: lower abdominal pain with urinary frequency and cm10 burning with urination onset today. Pt also reports constipation X2 weeks. Coronavirus screen: Vaccine status: Patient reports receiving the 2nd dose of the covid vaccine. Client denies travel out of the [place] in the last 14 days. Ebola Screen: Patient denies travel to an Ebola-affected area in the 21 days before illness onset. No symptoms or risks identified at this time. Initial Sepsis Screen: Does the patient meet any 2 criteria? No. Patient's initial sepsis screen is negative. Does the patient have a suspected source of infection? No. Patient's initial sepsis screen is negative. Risk Assessment: Do you want to hurt yourself or someone else? Patient reports no desire to harm self or others. Onset of symptoms was May 05, 2023. 23:34 Method Of Arrival: Wheelchair cm10 23:34 Acuity: NILAY 3 cm10 Historical: - Allergies: 23:34 adhesive tape; cm10 23:34 Iodine; cm10 23:34 Morphine; cm10 - PMHx: 23:34 diabetes mellitus; neuropathy; Hypothyroidism; High Cholesterol; Hypertension; cm10 Glaucoma; GERD; - PSHx: 23:34 Appendectomy; section; Cholecystectomy; hysterectomy; Tonsillectomy; cm10 - Immunization history:: Adult Immunizations unknown. - Social history:: Smoking status: unknown. Screenin/03 00:35 [facility] ED Fall Risk Assessment (Adult) History of falling in the last 3 months, jw7 including since admission Yes- single mechanical fall (1 pt) Confusion or Disorientation No (0 pts) Intoxicated or Sedated No (0 pts) Impaired Gait Yes (1 pt) Mobility Assist Device Used No (0 pt) Altered Elimination Yes (1 pt) Score/Fall Risk Level 0 - 2 = Low Risk Oriented to surroundings, Maintained a safe environment, Educated pt \T\ family on fall prevention, incl call for assistance when getting out of bed. Abuse screen: Denies threats or abuse. Denies injuries from another. Nutritional screening: No deficits noted. Tuberculosis screening: No symptoms or risk factors identified. Assessment: 00:35 General: Appears in no apparent distress. uncomfortable, Behavior is calm, cooperative. jw7 Pain: Complains of pain in abdomen Pain does not radiate. Pain currently is 10 out of 10 on a pain scale. Quality of pain is described as crampy, sharp, Pain began gradually, Is continuous, Noted to be grimacing, quiet/stoic. Neuro: Weathers Agitation-Sedation Scale (RASS): 0 - Alert and Calm Level of Consciousness is awake, alert, obeys commands, Oriented to person, place, time, situation. Cardiovascular: Capillary refill < 3 seconds Clubbing of nail beds is absent JVD is absent Patient's skin is warm and dry. Respiratory: Airway is patent Trachea midline Respiratory effort is even, unlabored, Respiratory pattern is regular, symmetrical. GI: Abdomen is round non-distended, Bowel sounds present X 4 quads. Abd is soft Abdomen is tender to palpation X 4 quads. Reports lower abdominal pain, upper abdominal pain, constipation, nausea. : No deficits noted. No signs and/or symptoms were reported regarding the genitourinary system. EENT: No deficits noted. No signs and/or symptoms were reported regarding the EENT system. Derm: Skin is intact, is fragile, Skin is dry, Skin is normal, Skin temperature is warm. Musculoskeletal: No deficits noted. No signs and/or symptoms reported regarding the musculoskeletal system. 01:30 Reassessment: Patient appears in no apparent distress at this time. No changes from jw7 previously documented assessment. Patient and/or family updated on plan of care and expected duration. Pain level reassessed. Patient is alert, oriented x 3, equal unlabored respirations, skin warm/dry/pink. 02:40 Reassessment: Patient appears in no apparent distress at this time. Patient and/or jw7 family updated on plan of care and expected duration. Pain level reassessed. Patient is alert, oriented x 3, equal unlabored respirations, skin warm/dry/pink. Patient states symptoms have improved. 03:13 Reassessment: Provider requested to have blood cultures drawn at 0500 with morning labs.jw7 04:30 Reassessment: Patient appears in no apparent distress at this time. Patient and/or jw7 family updated on plan of care and expected duration. Pain level reassessed. Patient is alert, oriented x 3, equal unlabored respirations, skin warm/dry/pink. Patient states feeling better. Patient states symptoms have improved. 05:30 Reassessment: Patient appears in no apparent distress at this time. No changes from 7 previously documented assessment. Patient and/or family updated on plan of care and expected duration. Pain level reassessed. Patient is alert, oriented x 3, equal unlabored respirations, skin warm/dry/pink. 06:30 Reassessment: Patient appears in no apparent distress at this time. No changes from jw7 previously documented assessment. Patient and/or family updated on plan of care and expected duration. Pain level reassessed. Patient is alert, oriented x 3, equal unlabored respirations, skin warm/dry/pink. Vital Signs: 05/05 23:34 BP 105 / 69; Pulse 102; Resp 18; Temp 97.9; Pulse Ox 100% ; Weight 55 kg; Pain 10/10; cm10 05/06 00:00 BP 101 / 54; Pulse 92; Resp 16 S; Pulse Ox 97% on R/A; jw7 01:00 BP 107 / 62; Pulse 92; Resp 16 S; Pulse Ox 94% on R/A; jw7 02:08 BP 103 / 59; Pulse 99; Resp 17 S; Pulse Ox 96% on R/A; jw7 03:00 BP 105 / 67; Pulse 86; Resp 15 S; Pulse Ox 95% on R/A; jw7 04:00 BP 99 / 56; Pulse 85; Resp 15 S; Pulse Ox 95% on R/A; jw7 05:00 BP 108 / 53; Pulse 85; Resp 14 S; Pulse Ox 94% on R/A; jw7 06:00 BP 98 / 57; Pulse 90; Resp 14 S; Pulse Ox 94% on R/A; jw7 05/05 23:34 Pain Scale: Adult cm10 ED Course: 05/05 23:23 Patient arrived in ED. kj1 23:24 Carlos Gutierrez DO is Attending Physician. ms3 23:35 Triage completed. cm10 23:35 Arm band placed on Patient placed in an exam room, on a stretcher. cm10 23:57 Elisa Dumont, RN is Primary Nurse. jw7 12 00:35 Patient has correct armband on for positive identification. Bed in low position. Call [facility] light in reach. Side rails up X2. Family accompanied patient. 00:35 Initial lab(s) drawn, by me, sent to lab. Inserted saline lock: 22 gauge in right [facility] antecubital area, using aseptic technique. Blood collected. 00:42 CBC with Diff Sent. jw7 00:42 CMP Sent. jw7 00:42 Lipase Sent. jw7 01:43 CT Abd/Pelvis - Without Contrast In Process Unspecified. EDMS 02:09 Lactate w/ 2H reflex if indic. Sent. jw7 02:30 EKG done, by ED staff, reviewed by Carlos Gutierrez DO. jw7 02:36 Alvarez Roldan is Hospitalizing Provider. ms3 02:54 Provided Education on: need for admit. jw7 02:54 No provider procedures requiring assistance completed. Patient admitted, IV remains in jw7 place. Administered Medications: 00:42 Drug: Famotidine IVP 20 mg IVP once; dilute with 10 mL 0.9% NaCl; give over 2 minutes jw7 Route: IVP; Site: right antecubital; 02:55 Follow up: Response: No adverse reaction jw7 00:42 Drug: HYDROmorphone IVP 0.5 mg IVP once Route: IVP; Site: right antecubital; jw7 02:55 Follow up: Response: No adverse reaction; Marked relief of symptoms jw7 00:43 Drug: NS 0.9% IV 1000 ml IV at 1 bolus Per protocol; 1000 mL bolus Route: IV; Rate: 1 jw7 bolus; Site: right antecubital; 02:55 Follow up: Response: No adverse reaction; IV Status: Completed infusion; IV Intake: jw7 1000ml 00:43 Drug: Ondansetron IVP 4 mg IVP once; over 2 minutes Route: IVP; Site: right antecubital;jw7 02:56 Follow up: Response: No adverse reaction; Marked relief of symptoms jw7 Medication: 02:54 VIS not applicable for this client. jw7 Intake: 02:55 IV: 1000ml; Total: 1000ml. jw7 Outcome: 02:37 Decision to Hospitalize by Provider. ms3 08:02 Admitted to Tele room 431, with chart, jay 08:02 Condition: stable 08:02 Instructed on the need for admit, 08:29 Patient left the ED. mb9 Signatures: Dispatcher [employer] EDLexi Mccarty kj1 Carlos Gutierrez DO DO ms3 Elisa Dumont, RN RN jw7 Valeria Cox RN RN mb9 Allison Lee RN RN cm10 Corrections: (The following items were deleted from the chart) 07:01 04:30 Reassessment: Patient appears in no apparent distress at this time. No changes jw7 from previously documented assessment. Patient and/or family updated on plan of care and expected duration. Pain level reassessed. Patient is alert, oriented x 3, equal unlabored respirations, skin warm/dry/pink. jw7
--- NOTE | 2023-05-06 02:38 | EDPHYS ---
Physician Documentation [facility] Name: Yady Diggs Age: 87 yrs Sex: Female : 1935 Arrival Date: 05/05/2023 Time: 23:20 Bed 8 Private MD: ED Physician Carlos Gutierrez HPI: 05/05 23:43 This 87 yrs old Female presents to ER via Wheelchair with complaints of ms3 Abdominal Pain. 23:43 89-year-old female with past medical history of diabetes, neuropathy, hypothyroidism, ms3 hyperlipidemia, hypertension, glaucoma presents to the emergency department for abdominal pain. Patient states abdominal pain began approximately 7 PM. Patient rates pain 10/10 and states the pain is worse on the right side of her abdomen. Patient denies alleviating or inciting factors. Patient endorses nausea, vomiting, constipation. Patient denies diarrhea.. Historical: - Allergies: 23:34 adhesive tape; cm10 23:34 Iodine; cm10 23:34 Morphine; cm10 - PMHx: 23:34 diabetes mellitus; neuropathy; Hypothyroidism; High Cholesterol; Hypertension; cm10 Glaucoma; GERD; - PSHx: 23:34 Appendectomy; section; Cholecystectomy; hysterectomy; Tonsillectomy; cm10 - Immunization history:: Adult Immunizations unknown. - Social history:: Smoking status: unknown. ROS: 23:43 Constitutional: Negative for fever, and chills. Neck: Negative for injury, pain, and ms3 swelling, Cardiovascular: Negative for chest pain, and palpitations. Respiratory: Negative for shortness of breath, cough, wheezing, and pleuritic chest pain, MS/Extremity: Negative for injury and deformity, 23:43 Abdomen/GI: Positive for abdominal pain, nausea and vomiting, constipation, Negative for diarrhea, 23:43 All other systems are negative, Exam: 23:43 Constitutional: This is a well developed, well nourished patient who is awake, alert, ms3 and in no acute distress. Head/Face: Normocephalic, atraumatic. Neck: Trachea midline, no cervical lymphadenopathy. Supple, full range of motion without nuchal rigidity, or vertebral point tenderness. No Meningismus. Chest/axilla: Normal chest wall appearance and motion. Nontender with no deformity. Cardiovascular: Regular rate and rhythm with a normal S1 and S2. No gallops, murmurs, or rubs. Normal PMI, no JVD. No pulse deficits. Respiratory: Lungs have equal breath sounds bilaterally, clear to auscultation and percussion. No rales, rhonchi or wheezes noted. No increased work of breathing, no retractions or nasal flaring. 23:43 Abdomen/GI: Inspection: abdomen appears normal, Bowel sounds: normal, Palpation: moderate abdominal tenderness, in the left upper quadrant and left lower quadrant, severe abdominal tenderness, in the right upper quadrant and right lower quadrant, 05/06 02:39 ECG was reviewed by the Attending Physician. ms3 Vital Signs: 05/05 23:34 BP 105 / 69; Pulse 102; Resp 18; Temp 97.9; Pulse Ox 100% ; Weight 55 kg; Pain 10/10; cm10 05/06 00:00 BP 101 / 54; Pulse 92; Resp 16 S; Pulse Ox 97% on R/A; jw7 01:00 BP 107 / 62; Pulse 92; Resp 16 S; Pulse Ox 94% on R/A; jw7 02:08 BP 103 / 59; Pulse 99; Resp 17 S; Pulse Ox 96% on R/A; jw7 03:00 BP 105 / 67; Pulse 86; Resp 15 S; Pulse Ox 95% on R/A; jw7 04:00 BP 99 / 56; Pulse 85; Resp 15 S; Pulse Ox 95% on R/A; jw7 05:00 BP 108 / 53; Pulse 85; Resp 14 S; Pulse Ox 94% on R/A; jw7 06:00 BP 98 / 57; Pulse 90; Resp 14 S; Pulse Ox 94% on R/A; jw7 05/05 23:34 Pain Scale: Adult cm10 MDM: 05/05 23:43 Differential diagnosis: appendicitis, diverticulitis, non-specific abd pain, ms3 pancreatitis. 23:53 Patient medically screened. ms3 05/06 02:37 Data reviewed: vital signs, nurses notes, and as a result, I will admit patient. ms3 Consideration of Admission/Observation Patient was admitted/placed on observation. Management of patient was discussed with the following: Hospitalist: ALANIS Ma, on behalf of Dr Roldan. I considered the following discharge prescriptions or medication management in the emergency department Medications were administered in the Emergency Department. See MAR. Historians other than the Patient: EMS: . Counseling: I had a detailed discussion with the patient and/or guardian regarding the historical points, exam findings, and any diagnostic results supporting the discharge/admit diagnosis, lab results, radiology results, the need for further work-up and treatment in the hospital. ED course: Discussed necessity for admission with patient and her family. They understand and agree with plan. All questions were answered. Patient's pain controlled at this time. 05/06 01:49 Order name: Blood Culture Adult (2) ms3 05/05 23:42 Order name: CBC with Diff; Complete Time: 01:48 ms3 05/05 23:42 Order name: CMP; Complete Time: 01:48 ms3 05/05 23:42 Order name: Lipase; Complete Time: 01:48 ms3 05/06 01:22 Order name: Lactate w/ 2H reflex if indic.; Complete Time: 02:36 as6 05/06 01:49 Order name: Protime (+inr); Complete Time: 04:40 ms3 05/06 01:49 Order name: Ptt, Activated; Complete Time: 04:40 ms3 05/06 04:05 Order name: Urinalysis w/ reflexes EDMS 05/06 04:05 Order name: CBC with Automated Diff EDMS 05/06 04:05 Order name: CBC with Automated Diff EDMS 05/06 04:05 Order name: Comprehensive Metabolic Panel EDMS 05/06 04:05 Order name: Comprehensive Metabolic Panel EDMS 05/06 01:31 Order name: CT Abd/Pelvis - Without Contrast jw7 05/06 01:49 Order name: EKG; Complete Time: 01:51 ms3 05/05 23:42 Order name: IV Saline Lock; Complete Time: 00:42 ms3 05/05 23:42 Order name: Labs collected and sent; Complete Time: 00:42 ms3 05/06 01:49 Order name: Accucheck; Complete Time: 02:39 ms3 05/06 01:49 Order name: Cardiac monitoring; Complete Time: 02:39 ms3 05/06 01:49 Order name: EKG - Nurse/Tech; Complete Time: 02:39 ms3 05/06 01:49 Order name: IV Saline Lock - Large Bore; Complete Time: 02:54 ms3 05/06 01:49 Order name: O2 Per Protocol; Complete Time: 02:09 ms3 12 01:49 Order name: O2 Sat Monitoring; Complete Time: 02:04 ms3 05/06 01:49 Order name: Vital Signs; Complete Time: 02:09 ms3 EC:39 Rate is 103 beats/min. Rhythm is regular. OK interval is normal. QRS interval is ms3 prolonged. Clinical impression: NSR w/ Non-specific ST/T Changes and RBBB. Interpreted by me. Reviewed by me. Administered Medications: 00:42 Drug: Famotidine IVP 20 mg IVP once; dilute with 10 mL 0.9% NaCl; give over 2 minutes jw7 Route: IVP; Site: right antecubital; 02:55 Follow up: Response: No adverse reaction jw7 00:42 Drug: HYDROmorphone IVP 0.5 mg IVP once Route: IVP; Site: right antecubital; jw7 02:55 Follow up: Response: No adverse reaction; Marked relief of symptoms jw7 00:43 Drug: NS 0.9% IV 1000 ml IV at 1 bolus Per protocol; 1000 mL bolus Route: IV; Rate: 1 jw7 bolus; Site: right antecubital; 02:55 Follow up: Response: No adverse reaction; IV Status: Completed infusion; IV Intake: jw7 1000ml 00:43 Drug: Ondansetron IVP 4 mg IVP once; over 2 minutes Route: IVP; Site: right antecubital;jw7 02:56 Follow up: Response: No adverse reaction; Marked relief of symptoms jw7 Disposition Summary: 05/06/23 02:37 Hospitalization Ordered Notes: Hospitalization Status: Inpatient Admission ms3 Provider: Alvarez Roldan ms3 Location: Telemetry/[facility] (Inpatient) ms3 Condition: Stable ms3 Problem: new ms3 Symptoms: are unchanged ms3 Bed/Room Type: Standard ms3 Room Assignment: 431(05/06/23 07:02) eb Diagnosis - Colitis ms3 - Leukocytosis ms3 - Abdominal pain, Generalized ms3 - Constipation ms3 Forms: - Medication Reconciliation Form ms3 - SBAR form ms3 - Leadership Thank You Letter ms3 Signatures: Dispatcher [employer] Scarlett Bailey Marcus, DO DO ms3 Elisa Dumont RN RN jw7 Allison Lee RN RN cm10 Corrections: (The following items were deleted from the chart) 01:05/05 23:43 Abdomen Pelvis W Con+CT.RAD.BRZ ordered. EDMS EDMS 05/06 01:43 01:24 Abdomen ordered. EDMS EDMS 07:02 02:37 ms3 eb
--- NOTE | 2023-05-06 03:41 | P.HP ---
Certification for Inpatient With expected LOS: >2 Midnights Patient will require the following post-hospital care: None Practitioner: I am a practitioner with admitting privileges, knowledge of patient current condition, hospital course, and medical plan of care. Services: Services provided to patient in accordance with Admission requirements found in Title 42 Section 412.3 of the Code of Federal Regulations Patient History Date of Service: 05/06/23 Primary Care Provider: Dr. Pena Reason for admission: Abdominal pain, constipation History of Present Illness: Mrs. Diggs is an 87yo female with PMH of HTN, Hypothyroidism, GERD, diverticulitis and degenerative joint disease. She was admitted 03/16/23 for syncope, dehydration, and UTI. Pt has been doing pretty well except for low back pain with sciatica. She had a MRI per Dr. Joe in [place] and will have an appt with him on SundayMay.09. She suddenly began having low abdominal pain 10/10 at 1900 last pm and was evaluated in the ED for 10/10 pain. She was found to have moderate stool volume, WBC 16.7 creatinine 1.68 and GFR 29. Treated in ED with 0.5mg Dilaudid and pain has reduced to 4/10. Zosyn given in ED. Allergies adhesive tape Allergy (Verified 05/16/22 11:24) blisters morphine Adverse Reaction (Mild, Verified 05/16/22 11:24) Headache/Nausea/Vomiting Home medications list reviewed: Yes Home Medications: Atorvastatin Calcium 20 mg PO BEDTIME 01/31/16 Carvedilol 12.5 mg PO BID 01/31/16 Cranberry 1 cap PO DAILY 01/31/16 Fluticasone/Salmeterol [Advair 250/50 Diskus*] 1 puff PO BID PRN 01/31/16 Gabapentin 600 mg PO TID 01/31/16 Latanoprost 1 drop EACH EYE BEDTIME 01/31/16 Levothyroxine Sodium 50 mcg PO DAILY 01/31/16 Dorzolamide HCl/Pf [Dorzolamide 2% Eye Drop] 1 gtt LEFT EYE BID 10/03/18 Acidophilus/Bifido Longum [Lactobacillus Capsule] 1 cap PO DAILY 03/17/23 Amitriptyline [Elavil*] 10 mg PO BEDTIME 03/17/23 Cetirizine HCl [All Day Allergy Relief] 10 mg PO DAILY 03/17/23 Coconut Oil 1,000 mg PO DAILY 03/17/23 Docusate Sodium 100 mg PO DAILY 03/17/23 Hydralazine [Apresoline*] 10 mg PO TID 03/17/23 Primidone [Mysoline *] 25 mg PO BEDTIME 03/17/23 Trazodone [Desyrel*] 25 mg PO BEDTIME 03/17/23 - Past Medical/Surgical History Diabetic: No -: HTN -: Hyperlipidemia -: Hypothyroidism -: Glaucoma/Macular degeneration -: Asthma -: diverticulosis -: Hernia repair -: r knee replacement, left hip replacement -: tonsillectomy -: abd scar tissue removal -: bilateral cataract -: hysterectomy -: Appendectomy, cholecystecomy -: bladder & rectal suspension, sm bowel resection Psychosocial/ Personal History: lives at home with family - Family History Mother -: Heart disease, Hypertension Father -: Other (see notes) Notes: blind - Social History Smoking Status: Never smoker Alcohol use: Yes CD- Drugs: No Caffeine use: Yes Place of Residence: Home (with ) Review of Systems 10-point ROS is otherwise unremarkable Gastrointestinal: Nausea, Vomiting, Abdominal Pain, Constipation Physical Examination - Vital Signs Blood Pressure: 103/59 Pulse: 94 Respirations: 14 Pulse Ox (%): 96 - Physical Exam General: Alert, Oriented x3 HEENT: Atraumatic, Normocephalic, PERRLA Neck: Supple Respiratory: Clear to auscultation bilaterally, Normal air movement Cardiovascular: Normal pulses, Regular rate/rhythm Gastrointestinal: Hypoactive, Distended, Tenderness (lower abd) Musculoskeletal: No clubbing, No swelling Integumentary: No rashes Neurological: Normal affect Lymphatics: No axilla or inguinal lymphadenopathy External genitalia: Deferred Rectal: Deferred - Studies Laboratory Data (last 24 hrs) 05/06/23 12 00:23 00:23 WBC 16.70 H Hgb 14.6 Hct 43.0 Plt Count 262 Sodium 140 Potassium 3.8 BUN 35 H Creatinine 1.68 H Glucose 133 H Total Bilirubin 0.5 AST 18 ALT 24 Alkaline Phosphatase 123 H Lipase 24 Assessment and Plan - Problems (Diagnosis) (1) Abdominal pain Onset Date: 02/16/15 Current Visit: No Status: Acute Plan: Monitor labs, vital signs, pain level, MRI showed no evidence of cauda equina, control gas pain, manage constipation, Zosyn for leukocytosis, diverticulosis, recent UTI. (2) Dehydration Onset Date: 02/01/16 Current Visit: No Status: Acute Plan: NS at 80ml/hr. Clear liquid and advance as tolerated diet Discharge Plan: Home - Advance Directives Does patient have a Living Will: No Does patient have a Durable POA for Healthcare: No - Code Status/Comfort Care Code Status Assessed: Yes (Full code) Critical Care: No Time Spent Managing Pts Care (In Minutes): 60
[2023-05-06] MEDS ORDERED: SIMETHICONE 125 MG TAB PO SCH (04:00)
[2023-05-06 04:28] LABS: Protime INR 0.93
[2023-05-06] MEDS: NA CHLORIDE 0.9% 1,000 ML IV SCH ×3 (07:15→17:19)
[2023-05-06] MEDS ORDERED: SIMETHICONE 80 MG CHEWABLE TAB ONE (07:29)
[2023-05-06] MEDS: HYDROMORPHONE HCL 0.5 MG/0.5 ML INJ IV PRN ×2 (08:03→19:41)
[2023-05-06] MEDS ORDERED: HYDROMORPHONE HCL 0.5 MG/0.5 ML INJ IV SCH (09:00)
[2023-05-06 09:23] VITALS: O2SAT 94
[2023-05-06] MEDS: POLYETHYL GLY 3350 17 GM/DOSE PO SCH ×2 (13:10→21:47)
[2023-05-06] MEDS: PIPER TAZO 3.375 GM in NA CHLORIDE 0.9% 100 ML IV SCH ×2 (13:11→21:48)
[2023-05-06] MEDS: SIMETHICONE 125 MG TAB PO SCH ×2 (13:23→17:13)
[2023-05-06] MEDS ORDERED: BISACODYL 10 MG RECTAL SUPP PR ONE (15:53)
--- NOTE | 2023-05-06 17:18 | P.PN ---
Date of Service: 05/06/23 Patient seen and examined. She reports no bowel movement for 2 weeks. She also reports abdominal discomfort. She has not voided since this morning. Bladder scan shows 283 ml. Plan: Trial of Dulcolax suppository for constipation Start senna and MiraLAX Mag citrate as needed. Hydrate with normal saline. Continue antibiotics for suspected colitis.
[2023-05-07] MEDS: SIMETHICONE 125 MG TAB PO SCH ×5 (00:23→23:30)
[2023-05-07] MEDS: HYDROMORPHONE HCL 0.5 MG/0.5 ML INJ IV PRN ×2 (03:59→17:29)
[2023-05-07] MEDS ORDERED: TAMSULOSIN 0.4 MG SR CAP PO ONE (04:54)
[2023-05-07 06:19] LABS: Absolute Lymphocytes (CBC) 1.9 K/uL (0.7-4.9); Hematocrit 34.6 % (36.0-45.0); Lymphocytes % 15.2 % (15.3-44.8); MCV 95.2 fL (80-100); MPV 8.2 fL (7.6-11.3); Platelets 177 thou/uL (152-406); RBC Red Blood Cell Count 3.64 M/uL (3.86-4.86)
[2023-05-07 06:36] LABS: Albumin 2.2 g/dL (3.4-5.0); Bilirubin Total 0.5 mg/dL (0.2-1.0); Protein, Total 4.8 g/dL (6.4-8.2)
[2023-05-07] MEDS: NA CHLORIDE 0.9% 1,000 ML IV SCH ×3 (06:50→23:00)
[2023-05-07 06:53] LABS: Specific Gravity 1.019 (1.005-1.030); Urine Bilirubin NEGATIVE (Negative); Urine Blood Negative (Negative); Urine Clarity Clear (Clear); Urine Color Light-Yellow (Yellow); Urine Glucose NEGATIVE (Negative); Urine Protein NEGATIVE (Negative); Urine Urobilinogen Normal (Normal); Urine pH 5.5 (5.0-7.0)
[2023-05-07] MEDS ORDERED: BISACODYL 10 MG RECTAL SUPP PR ONE (08:03)
[2023-05-07] MEDS: DOCUSATE NA/SENNA CONC 1 TAB PO SCH ×2 (08:48→20:19)
[2023-05-07] MEDS: PIPER TAZO 3.375 GM in NA CHLORIDE 0.9% 100 ML IV SCH ×2 (08:48→20:19)
[2023-05-07] MEDS: TAMSULOSIN 0.4 MG SR CAP PO SCH (08:48)
[2023-05-07] MEDS: POLYETHYL GLY 3350 17 GM/DOSE PO SCH ×2 (08:48→20:20)
[2023-05-07 10:40] VITALS: BMI 22.4
--- NOTE | 2023-05-07 11:04 | RAD REPORT ---
EXAM DESCRIPTION: CT - Abdomen Pelvis Wo Contrast - 05/06/2023 8:19 am CLINICAL HISTORY: The patient is 87 years old and is Female; ABD PAIN TECHNIQUE: Axial computed tomography images of the abdomen and pelvis without intravenous contrast. Sagittal and coronal reformatted images were created and reviewed. This CT exam was performed usi ng one or more of the following dose reduction techniques: automated exposure control, adjustment o f the mA and/or kV according to patient size, and/or use of iterative reconstruction technique. COMPARISON: CT March 16, 2023 FINDINGS: LUNG BASES: Unremarkable. No mass. No consolidation. HEART: There is a trace pericardial effusion. MEDIASTINUM: A moderate-sized hiatal hernia is present. ABDOMEN: LIVER: Homogeneous without focal mass. GALLBLADDER AND BILE DUCTS: Surgical clips are present in the right upper quadrant, consistent wi th previous cholecystectomy. PANCREAS: Fatty infiltration of the pancreas is present. No ductal dilation. SPLEEN: Unremarkable. ADRENALS: Unremarkable. No mass. KIDNEYS AND URETERS: No obstructing stones. No hydronephrosis. No perinephric fluid. STOMACH AND BOWEL: The stomach is minimally distended with food contents. The small bowel is rela tively normal in caliber. A moderate to large amount of stool is noted throughout the colon. Mucosal thickening with surrounding inflammation involving the left colon is present. There is no evidence of obstruction. PELVIS: APPENDIX: No findings to suggest acute appendicitis. BLADDER: The bladder is moderately distended. No stones. REPRODUCTIVE: The patient is status post hysterectomy. ABDOMEN and PELVIS: INTRAPERITONEAL SPACE: Unremarkable. No free air. No significant fluid collection. BONES/JOINTS: A left hip prosthesis is present. The hardware is engaged. There are degenerative changes of the spine. There is no acute fracture. Bilateral pars defects are present L5 without evid ence of anterolisthesis. SOFT TISSUES: The soft tissues are normal. VASCULATURE: Atherosclerosis of the vasculature is present. The vessels are normal in caliber. No abdominal aortic aneurysm. LYMPH NODES: Unremarkable. No enlarged lymph nodes. IMPRESSION: 1. Findings suggest colitis involving the left colon. 2. Large stool burden without obstruction. 3. Chronic findings as detailed above. 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 The interpreting r adiologist is fully responsible for the content of the report.
--- NOTE | 2023-05-07 20:56 | PN ---
Date of Progress Note: 05/07/2023 Subjective: Patient was seen this morning for followup. History and physical, current lab results, and CAT scan of the abdomen and pelvis results reviewed. Patient came into emergency room with compl aints of lower abdominal pain and trouble voiding. Denies any blood in stool, blood in the urine. A fter she was evaluated in the ER, she was admitted to the hospital. Objective: Vital Signs: When I saw her this morning, last vital signs temperature 97.2, pulse 84, r espiratory rate 16, blood pressure 134/71, oxygen saturation 96%. Laboratory Data: White count 12.4, hemoglobin 11.7, platelets 177. Sodium 139, potassium 4, chlorid e 108, bicarb 28, BUN 33, creatinine 1.34, glucose 116. Liver function tests normal. Urinalysis neg ative. Impression: 1.Colitis. 2.Constipation. 3.Anemia, chronic, unspecified. 4.Chronic kidney disease, stage 3B. 5.Hypertension. Plan: We will go ahead and continue current medications. Patient has not had a bowel movement in la st few days. She is having constipation problem. We will go ahead and give Dulcolax rectal supposit ory and continue current antibiotic. Continue other current home medications including DVT prophylax is. I will see her tomorrow for followup. SANDRO/MODL Voice ID: [id number] Report ID: [id number]
[2023-05-07] MEDS ORDERED: MAGNES/ALUMIN/SIMET 30ML UCUP PO PRN (23:54)
[2023-05-08] MEDS: HYDROMORPHONE HCL 0.5 MG/0.5 ML INJ IV PRN (03:33)
[2023-05-08] MEDS: SIMETHICONE 125 MG TAB PO SCH (05:00)
[2023-05-08] MEDS ORDERED: MAGNESIUM HYDROXIDE 8% 30 ML PO ONE (08:15)
[2023-05-08] MEDS: POLYETHYL GLY 3350 17 GM/DOSE PO SCH (08:51)
[2023-05-08] MEDS: TAMSULOSIN 0.4 MG SR CAP PO SCH (08:52)
[2023-05-08] MEDS: DOCUSATE NA/SENNA CONC 1 TAB PO SCH (08:53)
[2023-05-08] MEDS ORDERED: predniSONE 20 MG TAB PO ONE (10:15)
[2023-05-08 11:32] VITALS: BP 145/68; TEMP 98.1
--- NOTE | 2023-05-08 13:37 | EKG ---
Test Date: 2023-05-06 Test Time: 02:19:37 Flight Engineer: KEE MEASUREMENT RESULTS: Intervals: Rate: 103 LA: 174 QRSD: 110 QT: 364 QTc: 476 [place]: P: 34 LA: 174 QRS: -70 T: 39 INTERPRETIVE STATEMENTS: Sinus tachycardia Incomplete right bundle branch block Left anterior fascicular block T wave abnormality, consider anterior ischemia Abnormal ECG Compared to ECG 03/16/2023 18:10:21 Incomplete right bundle-branch block now present Left anterior fascicular block now present T-wave abnormality now present Possible ischemia now present Sinus bradycardia no longer present Electronically Signed On 05-08-23 13:29:27 INDUSTRIAL MAINTENANCE REPAIRER by Anton Oconnor
== END 2023-05-08 11:48 | disposition home or self-care (01) | DRG 392 ==
LOC: ER 23:20 → ERHOLD 05-06 06:44 → 4TH 05-06 07:54
PROVIDERS: ADMIT Internal Medicine; ATTEND Internal Medicine
DX: K59.00 Constipation, unspecified (principal); E03.9 Hypothyroidism, unspecified; E86.0 Dehydration; E78.00 Pure hypercholesterolemia, unspecified; I12.9 Hypertensive chronic kidney disease with stage 1 through stage 4 chronic kidney disease, or unspecified chronic kidney disease; N18.32 Chronic kidney disease, stage 3b; E11.22 Type 2 diabetes mellitus with diabetic chronic kidney disease; E11.40 Type 2 diabetes mellitus with diabetic neuropathy, unspecified; D63.1 Anemia in chronic kidney disease; K21.9 Gastro-esophageal reflux disease without esophagitis; K52.9 Noninfective gastroenteritis and colitis, unspecified; D72.829 Elevated white blood cell count, unspecified; Z88.5 Allergy status to narcotic agent; Z79.02 Long term (current) use of antithrombotics/antiplatelets; Z90.49 Acquired absence of other specified parts of digestive tract; Z90.710 Acquired absence of both cervix and uterus; Z91.048 Other nonmedicinal substance allergy status; Z79.890 Hormone replacement therapy; Z79.899 Other long term (current) drug therapy; Z96.651 Presence of right artificial knee joint; Z96.642 Presence of left artificial hip joint
CPT/HCPCS: 36415; 74176; 80053; 81003; 82947; 83605; 83690; 85025; 85610; 85730; 87040; 93005; 96361; 96374; 96375; 99285; J1170; J2405; J2543; J7030; J7512

== ENCOUNTER 2023-05-09 13:14 | Inpatient (IN) | payer OTHER, BC ==
--- OUTSIDE RECORDS SUMMARY | 2023-05-09 13:21 | XMS REPORT | Continuity of Care Document ---
Author Name Unknown Address [address] [facility]. [address] [place] [address] [facility] thconnect Address [address] [facility] [address] [place] [address] Care Team Providers Care Scientific Database Curator Name Role Phone HEATHER PEREZ Deuce Primary Care Physician Unavailab MARTA Jimenez Attending Clinician Unavailabl MARTA Valerio Attending Clinician Unavailabl e TENZIN THURMAN Attending Clinician Unavailable Marta Johnson MD Attending Clinician [phone] Suman Harris Attending Clinician Unavailable Arley Ferrari Attending Clinician [phone] ARLEY DELGADILLO Attending Clinician Unavailable Doctor Unassigned, Haslet Attending Clinician U GAVIN Gutierrez Attending Clinician Unavailable Eusebia LO, Lucia Spencer Attending Clinician Unavail able MARY_SWHAWPRC_Lara Attending Clinician Unavail able 1, [facility] Attending Clinician Unavailable Prashanth Stevenson MD Attending Clinician [phone] PRASHANTH STEVENSON Attending Clinician Unavailabl e Only, Adc Test Attending Clinician Unavailable Maco Abdi MD Attending Clinician MACO ABDI Attending Clinician Unavailable Yoselin Francisco PTA Attending Clinician Unavail able Kimberly Mcgovern PT Attending Clinician Un available Joshua PT, Maki A Attending Clinician Severo Thompson PT, Sandra Angel Attending Clinician Unavailab marina Willett PT, Viki Flores Attending Clinician Belkis Simental RN, Jacquie Attending Clinician Unavailable Johnny RT, Val Tripathi Attending Clinician Unavailab Grant Rinaldi MD Attending Clinician [phone] Colby Monson MD Attending Clinician [phone] Светлана Wallace DO Attending Clinician [phone] GO SINGER Attending Clinician Unavail able Nurse, [facility] Pob Immunization Attending Clinician Unavailable Go Singer DO Attending Clinician [phone] Pob, [facility] Main Attending Clinician UnavailTootie Burns Attending Clinician [phone] Janes PRINTER ASSISTANT, Adwoa Attending Clinician [phone] Nolan LACTATION SPECIALIST, Jose F Attending Clinician Unavaila MARTA Benjamin Admitting Clinician UnavailSuman Mcintyre Admitting Clinician Unavailable KNOW, DOES_NOT Admitting Clinician Unavailable _SWHAWPR_Lara Admitting Clinician Unavail able Iona VARGAS, Colby Admitting Clinician [phone] Marta Johnson MD Admitting Clinician [phone] Payers Payer Name Policy Type Policy Number Effective Date Expirati on Date Source MEDICARE PART A AND B [id number] 2001 00:00:00 [facility] [id number] 2017 00:00:00 MEDICARE PART A \T\ B [id number] 2001 00:00:00 [employer] TRADITIONAL [id number] 2017 00:00:00 [place] [employer] [id number] 2001 00:00:00 [place] [id number] 2017 00:00:00 Problems Condition Name Condition Details Condition Category Status Onset Date Resolution Date Last Treatment Date Treating Clinician Comments Source Low back pain, unspecifie d back pain laterality , unspecifie d chronicity , unspecifie d whether sciatica present Low back pain, unspecifie d back pain laterality , unspecifie d chronicity , unspecifie d whether sciatica present Disease Active 2022-06 00:00: 00 [facility] Radiculopa thy, unspecifie d spinal region Radiculopa thy, unspecifie d spinal region Disease Active 2022-06 00:00: 00 [facility] Gait instabilit y Gait instabilit y Disease Active 2021-06 1 00:00: 00 [facility] Poor balance Poor balance Disease Active 2021-06 1 00:00: 00 [facility] Generalize d weakness Generalize d weakness Disease Active 2021-06 00:00: 00 [facility] Vomiting Vomiting Disease Active 2020-06 0 00:00: 00 [facility] 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 Added automatic ally from request for surgery [id number] [facility] Allergies, Adverse Reactions, Alerts Allergy Name Allergy Type Status Severity Reaction(s) Onset Date Inactive Date Treating Clinician Comments Source iodine DA Active U rash, itching, hives-CONTRA ST 2022-06 0-04 00:00: 00 [facility] morphine DA Active U headache, nausea 2022-06 0-04 00:00: 00 [facility] adhesive tape DA Active SV TEARS SKIN 2022-06 0-04 00:00: 00 [facility] iodine DA Active U rash, itching, hives 8-07 00:00: 00 [facility] morphine DA Active U headache, nausea 8-07 00:00: 00 [facility] latex DA Active SV redness, blister 8-07 00:00: 00 [facility] morphine DA Active U UNKNOWN 8-04 00:00: 00 [facility] Morphine Propensi ty to adverse reaction s Active Nausea Only 07-11 00:00: 00 [facility] MORPHINE DRUG INGREDI Active N/V 07-11 00:00: 00 [facility] Morphine Allergy to substanc e Active Nausea [facility] Social History Social Habit Start Date Stop Date Quantity Comments Source History of tobacco use Current smoker [facility] Sexual orientation U [facility] Alcohol intake 2023-04-05 00:00:00 2023-04-05 00:00:00 Current drinker of alcohol (finding) [facility] History of Social function 2023-04-05 00:00:00 2023-04-05 00:00:00 [facility] Tobacco use and exposure 2022-11-17 00:00:00 2022-11-17 00:00:00 Smokeless tobacco non-user [facility] Tobacco Comment 2022-11-17 00:00:00 2022-11-17 00:00:00 pt quit 50 yrs ago [facility] Exposure to SARS-CoV-2 (event) 2022-03-10 00:00:00 2022-03-20 10:49:00 Not sure [facility] Sex Assigned At 1935 00:00:00 1935 00:00:00 [facility] Smoking Status Start Date Stop Date Source Ex-smoker 2022-11-17 00:00:00 2022-11-17 00:00:00 U [facility] Medications Ordered Medication Name Filled Medication Name Start Date Stop Date Current Medication? Ordering Clinician Indication Dosage Frequency Signature (SIG) Comments Components Source HYDROcodone -acetaminop hen (NORCO) 10-325 mg tablet 1 tablet 2022-06 02:15: 00 04-29 01:31 :00 No 1{tbl} 1 tablet, Oral, ONCE, 1 dose, On 04/28/23 at 2015, FLORINDA [facility] lidocaine (LIDODERM) 5 % (700 mg/patch) patch 1 Patch 2022-06 02:15: 00 04-29 01:32 :00 No 1{patch } 1 Patch, Topical, ONCE, 1 dose, On 04/28/23 at 2015, FLORINDA [facility] methylPREDN ISolone (MEDROL, KELLIE,) 4 mg tablets 2022-06 00:00: 00 Yes [id number] 84mg Take 21 tablets by mouth SEE-INSTRU CTIONS. follow package directions [facility] methylPREDN ISolone (MEDROL, KELLIE,) 4 mg tablets 2022-06 00:00: 00 Yes [id number] 84mg Take 21 tablets by mouth SEE-INSTRU CTIONS. follow package directions [facility] methylPREDN ISolone (MEDROL, KELLIE,) 4 mg tablets 2022-06 00:00: 00 Yes [id number] 84mg Take 21 tablets by mouth SEE-INSTRU CTIONS. follow package directions [facility] methylPREDN ISolone (MEDROL, KELLIE,) 4 mg tablets 2022-06 00:00: 00 Yes [id number] 84mg Take 21 tablets by mouth SEE-INSTRU CTIONS. follow package directions [facility] methylPREDN ISolone (MEDROL, KELLIE,) 4 mg tablets 2022-06 00:00: 00 Yes [id number] 84mg Take 21 tablets by mouth SEE-INSTRU CTIONS. follow package directions [facility] triamcinolo ne acetonide (KENALOG) injection 40 mg 11-17 17:45: 00 11-17 17:01 :00 No [id number] 40mg [facility] triamcinolo ne acetonide (KENALOG) injection 40 mg 11-17 17:45: 00 11-17 17:01 :00 No [id number] 40mg 40 mg, Intramuscu lar, ONCE, 1 dose, On Sun11/17/22 at 1245, Routine [facility] triamcinolo ne acetonide (KENALOG) injection 40 mg 11-17 17:45: 00 11-17 17:01 :00 No [id number] 40mg [facility] triamcinolo ne acetonide (KENALOG) injection 40 mg 11-17 17:45: 00 11-17 17:01 :00 No [id number] 40mg 40 mg, Intramuscu lar, ONCE, 1 dose, On Sun11/17/22 at 1245, Routine [facility] triamcinolo ne acetonide (KENALOG) injection 40 mg 11-17 17:15: 00 11-17 16:22 :00 No [id number] 40mg [facility] triamcinolo ne acetonide (KENALOG) injection 40 mg 11-17 17:15: 00 11-17 16:22 :00 No [id number] 40mg 40 mg, Intramuscu lar, ONCE, 1 dose, On Sun11/17/22 at 1215, Routine [facility] triamcinolo ne acetonide (KENALOG) injection 40 mg 11-17 17:15: 00 11-17 16:22 :00 No [id number] 40mg [facility] triamcinolo ne acetonide (KENALOG) injection 40 mg 11-17 17:15: 00 11-17 16:22 :00 No [id number] 40mg 40 mg, Intramuscu lar, ONCE, 1 dose, On Sun11/17/22 at 1215, Routine [facility] triamcinolo ne acetonide (KENALOG) injection 40 mg 2021-06 0-18 19:30: 00 03-21 18:25 :00 No [id number] 40mg [facility] triamcinolo ne acetonide (KENALOG) injection 80 mg 2021-06 0-18 19:30: 00 03-21 18:27 :00 No [id number] 9100 80mg [facility] triamcinolo ne acetonide (KENALOG) injection 80 mg 2021-06 0-18 19:30: 00 03-21 18:27 :00 No [id number] 9100 80mg 80 mg, Intramuscu lar, ONCE, 1 dose, On Sun03/21/22 at 1430, Routine [facility] triamcinolo ne acetonide (KENALOG) injection 40 mg 2021-06 19:30: 00 03-21 18:25 :00 No [id number] 40mg 40 mg, Intramuscu lar, ONCE, 1 dose, On Sun03/21/22 at 1430, Routine [facility] traMADoL 50 mg tablet 2020-06 00:00: 00 Yes [id number] 50mg Take 1 tablet by mouth every 4 (four) hours as needed for Pain (scale 7-10). Indication s: acute pain [facility] traMADoL 50 mg tablet 2020-06 00:00: 00 Yes [id number] 50mg Take 1 tablet by mouth every 4 (four) hours as needed for Pain (scale 7-10). Indication s: acute pain [facility] traMADoL 50 mg tablet 2020-06 00:00: 00 Yes [id number] 50mg Take 1 tablet by mouth every 4 (four) hours as needed for Pain (scale 7-10). Indication s: acute pain [facility] traMADoL 50 mg tablet 2020-06 00:00: 00 Yes [id number] 50mg Take 1 tablet by mouth every 4 (four) hours as needed for Pain (scale 7-10). Indication s: acute pain [facility] traMADoL 50 mg tablet 2020-06 00:00: 00 Yes [id number] 50mg Take 1 tablet by mouth every 4 (four) hours as needed for Pain (scale 7-10). Indication s: acute pain [facility] traMADoL 50 mg tablet 2020-06 00:00: 00 Yes [id number] 50mg Take 1 tablet by mouth every 4 (four) hours as needed for Pain (scale 7-10). Indication s: acute pain [facility] traMADoL 50 mg tablet 2020-06 00:00: 00 Yes [id number] 50mg Take 1 tablet by mouth every 4 (four) hours as needed for Pain (scale 7-10). Indication s: acute pain [facility] traMADoL 50 mg tablet 2020-06 00:00: 00 Yes [id number] 50mg Take 1 tablet by mouth every 4 (four) hours as needed for Pain (scale 7-10). Indication s: acute pain [facility] traMADoL 50 mg tablet 2020-06 00:00: 00 Yes [id number] 50mg Take 1 tablet by mouth every 4 (four) hours as needed for Pain (scale 7-10). Indication s: acute pain [facility] traMADoL 50 mg tablet 2020-06 00:00: 00 Yes [id number] 50mg Take 1 tablet by mouth every 4 (four) hours as needed for Pain (scale 7-10). Indication s: acute pain [facility] traMADoL 50 mg tablet 2020-06 00:00: 00 Yes [id number] 50mg Take 1 tablet by mouth every 4 (four) hours as needed for Pain (scale 7-10). Indication s: acute pain [facility] traMADoL 50 mg tablet 2020-06 00:00: 00 Yes [id number] 50mg Take 1 tablet by mouth every 4 (four) hours as needed for Pain (scale 7-10). Indication s: acute pain [facility] traMADoL 50 mg tablet 2020-06 00:00: 00 Yes [id number] 50mg Take 1 tablet by mouth every 4 (four) hours as needed for Pain (scale 7-10). Indication s: acute pain [facility] traMADoL 50 mg tablet 2020-06 00:00: 00 Yes [id number] 50mg Take 1 tablet by mouth every 4 (four) hours as needed for Pain (scale 7-10). Indication s: acute pain [facility] traMADoL 50 mg tablet 2020-06 00:00: 00 Yes [id number] 50mg Take 1 tablet by mouth every 4 (four) hours as needed for Pain (scale 7-10). Indication s: acute pain [facility] traMADoL 50 mg tablet 2020-06 00:00: 00 Yes [id number] 50mg Take 1 tablet by mouth every 4 (four) hours as needed for Pain (scale 7-10). Indication s: acute pain [facility] traMADoL 50 mg tablet 2020-06 00:00: 00 Yes [id number] 50mg Take 1 tablet by mouth every 4 (four) hours as needed for Pain (scale 7-10). Indication s: [facility] traMAD[facility] mg tablet 2020-06 0 00:00: 00 Yes [id number] 50mg Take 1 tablet by mouth every 4 (four) hours as needed for Pain (scale 7-10). Indication s: acute pain [facility] traMADoL 50 mg tablet 2020-06 0- 00:00: 00 Yes [id number] 50mg Take 1 tablet by mouth every 4 (four) hours as needed for Pain (scale 7-10). Indication s: acute pain [facility] fluticasone -salmeterol (ADVAIR DISKUS) 250-50 mcg/dose inhalation disk 2020-06 0 13:23: 04 Yes 1{puff} Inhale 1 Puff once daily as needed. [facility] Cranberry Extract 200 mg Cap 2020-06 0 13:23: 04 Yes Take by mouth. [facility] omeprazole 20 mg capsule 2020-06 0 13:23: 04 Yes 20mg Take 20 mg by mouth daily. [facility] brimonidine 0.2 % ophthalmic solution 2020-06 0 13:23: 04 Yes brimonidin e 0.2 % eye drops [facility] latanoprost , PF, 0.005 % Drop 2020-06 0 13:23: 04 Yes latanopros t 0.005 % eye drops [facility] fluticasone -salmeterol (ADVAIR DISKUS) 250-50 mcg/dose inhalation disk 2020-06 0 13:23: 04 Yes 1{puff} Inhale 1 Puff once daily as needed. [facility] Cranberry Extract 200 mg Cap 2020-06 0 13:23: 04 Yes Take by mouth. [facility] omeprazole 20 mg capsule 2020-06 0 13:23: 04 Yes 20mg Take 20 mg by mouth daily. [facility] brimonidine 0.2 % ophthalmic solution 2020-06 0 13:23: 04 Yes brimonidin e 0.2 % eye drops [facility] latanoprost , PF, 0.005 % Drop 2020-06 0-03 13:23: 04 Yes latanopros t 0.005 % eye drops [facility] fluticasone -salmeterol (ADVAIR DISKUS) 250-50 mcg/dose inhalation disk 2020-06 0-03 13:23: 04 Yes 1{puff} Inhale 1 Puff once daily as needed. [facility] Cranberry Extract 200 mg Cap 2020-06 0-03 13:23: 04 Yes Take by mouth. [facility] omeprazole 20 mg capsule 2020-06 0 13:23: 04 Yes 20mg Take 20 mg by mouth daily. [facility] brimonidine 0.2 % ophthalmic solution 2020-06 0 13:23: 04 Yes brimonidin e 0.2 % eye drops [facility] latanoprost , PF, 0.005 % Drop 2020-06 0 13:23: 04 Yes latanopros t 0.005 % eye drops [facility] fluticasone -salmeterol (ADVAIR DISKUS) 250-50 mcg/dose inhalation disk 2020-06 003 13:23: 04 Yes 1{puff} Inhale 1 Puff once daily as needed. [facility] Cranberry Extract 200 mg Cap 2020-06 0 13:23: 04 Yes Take by mouth. [facility] omeprazole 20 mg capsule 2020-06 0 13:23: 04 Yes 20mg Take 20 mg by mouth daily. [facility] brimonidine 0.2 % ophthalmic solution 2020-06 0-03 13:23: 04 Yes brimonidin e 0.2 % eye drops [facility] latanoprost , PF, 0.005 % Drop 2020-06 0-03 13:23: 04 Yes latanopros t 0.005 % eye drops [facility] fluticasone -salmeterol (ADVAIR DISKUS) 250-50 mcg/dose inhalation disk 2020-06 0-03 13:23: 04 Yes 1{puff} Inhale 1 Puff once daily as needed. [facility] Cranberry Extract 200 mg Cap 2020-06 0- 13:23: 04 Yes Take by mouth. [facility] omeprazole 20 mg capsule 2020-06 0- 13:23: 04 Yes 20mg Take 20 mg by mouth daily. [facility] brimonidine 0.2 % ophthalmic solution 2020-06 0- 13:23: 04 Yes brimonidin e 0.2 % eye drops [facility] latanoprost , PF, 0.005 % Drop 2020-06 0 13:23: 04 Yes latanopros t 0.005 % eye drops [facility] fluticasone -salmeterol (ADVAIR DISKUS) 250-50 mcg/dose inhalation disk 2020-06 0- 13:23: 04 Yes 1{puff} Inhale 1 Puff once daily as needed. [facility] Cranberry Extract 200 mg Cap 2020-06 0 13:23: 04 Yes Take by mouth. [facility] omeprazole 20 mg capsule 2020-06 0 13:23: 04 Yes 20mg Take 20 mg by mouth daily. [facility] brimonidine 0.2 % ophthalmic solution 2020-06 0 13:23: 04 Yes brimonidin e 0.2 % eye drops [facility] latanoprost , PF, 0.005 % Drop 2020-06 0 13:23: 04 Yes latanopros t 0.005 % eye drops [facility] fluticasone -salmeterol (ADVAIR DISKUS) 250-50 mcg/dose inhalation disk 2020-06 0 13:23: 04 Yes 1{puff} Inhale 1 Puff once daily as needed. [facility] Cranberry Extract 200 mg Cap 2020-06 0- 13:23: 04 Yes Take by mouth. [facility] omeprazole 20 mg capsule 2020-06 0 13:23: 04 Yes 20mg Take 20 mg by mouth daily. [facility] brimonidine 0.2 % ophthalmic solution 2020-06 0 13:23: 04 Yes brimonidin e 0.2 % eye drops [facility] latanoprost , PF, 0.005 % Drop 2020-06 0-03 13:23: 04 Yes latanopros t 0.005 % eye drops [facility] fluticasone -salmeterol (ADVAIR DISKUS) 250-50 mcg/dose inhalation disk 2020-06 0- 13:23: 04 Yes 1{puff} Inhale 1 Puff once daily as needed. [facility] Cranberry Extract 200 mg Cap 2020-06 0 13:23: 04 Yes Take by mouth. [facility] omeprazole 20 mg capsule 2020-06 0 13:23: 04 Yes 20mg Take 20 mg by mouth daily. [facility] brimonidine 0.2 % ophthalmic solution 2020-06 0 13:23: 04 Yes brimonidin e 0.2 % eye drops [facility] latanoprost , PF, 0.005 % Drop 2020-06 0 13:23: 04 Yes latanopros t 0.005 % eye drops [facility] fluticasone -salmeterol (ADVAIR DISKUS) 250-50 mcg/dose inhalation disk 2020-06 0 13:23: 04 Yes 1{puff} Inhale 1 Puff once daily as needed. [facility] Cranberry Extract 200 mg Cap 2020-06 0 13:23: 04 Yes Take by mouth. [facility] omeprazole 20 mg capsule 2020-06 0 13:23: 04 Yes 20mg Take 20 mg by mouth daily. [facility] brimonidine 0.2 % ophthalmic solution 2020-06 0 13:23: 04 Yes brimonidin e 0.2 % eye drops [facility] latanoprost , PF, 0.005 % Drop 2020-06 0- 13:23: 04 Yes latanopros t 0.005 % eye drops [facility] fluticasone -salmeterol (ADVAIR DISKUS) 250-50 mcg/dose inhalation disk 2020-06 0- 13:23: 04 Yes 1{puff} Inhale 1 Puff once daily as needed. [facility] Cranberry Extract 200 mg Cap 2020-06 0- 13:23: 04 Yes Take by mouth. [facility] omeprazole 20 mg capsule 2020-06 0 13:23: 04 Yes 20mg Take 20 mg by mouth daily. [facility] brimonidine 0.2 % ophthalmic solution 2020-06 0 13:23: 04 Yes brimonidin e 0.2 % eye drops [facility] latanoprost , PF, 0.005 % Drop 2020-06 0 13:23: 04 Yes latanopros t 0.005 % eye drops [facility] fluticasone -salmeterol (ADVAIR DISKUS) 250-50 mcg/dose inhalation disk 2020-06 0 13:23: 04 Yes 1{puff} Inhale 1 Puff once daily as needed. [facility] Cranberry Extract 200 mg Cap 2020-06 0 13:23: 04 Yes Take by mouth. [facility] omeprazole 20 mg capsule 2020-06 0 13:23: 04 Yes 20mg Take 20 mg by mouth daily. [facility] brimonidine 0.2 % ophthalmic solution 2020-06 0 13:23: 04 Yes brimonidin e 0.2 % eye drops [facility] latanoprost , PF, 0.005 % Drop 2020-06 0 13:23: 04 Yes latanopros t 0.005 % eye drops [facility] fluticasone -salmeterol (ADVAIR DISKUS) 250-50 mcg/dose inhalation disk 2020-06 0- 13:23: 04 Yes 1{puff} Inhale 1 Puff once daily as needed. [facility] Cranberry Extract 200 mg Cap 2020-06 0- 13:23: 04 Yes Take by mouth. [facility] omeprazole 20 mg capsule 2020-06 0-03 13:23: 04 Yes 20mg Take 20 mg by mouth daily. [facility] brimonidine 0.2 % ophthalmic solution 2020-06 0 13:23: 04 Yes brimonidin e 0.2 % eye drops [facility] latanoprost , PF, 0.005 % Drop 2020-06 0- 13:23: 04 Yes latanopros t 0.005 % eye drops [facility] fluticasone -salmeterol (ADVAIR DISKUS) 250-50 mcg/dose inhalation disk 2020-06 0 13:23: 04 Yes 1{puff} Inhale 1 Puff once daily as needed. [facility] Cranberry Extract 200 mg Cap 2020-06 0 13:23: 04 Yes Take by mouth. [facility] omeprazole 20 mg capsule 2020-06 0 13:23: 04 Yes 20mg Take 20 mg by mouth daily. [facility] brimonidine 0.2 % ophthalmic solution 2020-06 0 13:23: 04 Yes brimonidin e 0.2 % eye drops [facility] latanoprost , PF, 0.005 % Drop 2020-06 0 13:23: 04 Yes latanopros t 0.005 % eye drops [facility] fluticasone -salmeterol (ADVAIR DISKUS) 250-50 mcg/dose inhalation disk 2020-06 0 13:23: 04 Yes 1{puff} Inhale 1 Puff once daily as needed. [facility] Cranberry Extract 200 mg Cap 2020-06 0 13:23: 04 Yes Take by mouth. [facility] omeprazole 20 mg capsule 2020-06 0 13:23: 04 Yes 20mg Take 20 mg by mouth daily. [facility] brimonidine 0.2 % ophthalmic solution 2020-06 0 13:23: 04 Yes brimonidin e 0.2 % eye drops [facility] latanoprost , PF, 0.005 % Drop 2020-06 0 13:23: 04 Yes latanopros t 0.005 % eye drops [facility] fluticasone -salmeterol (ADVAIR DISKUS) 250-50 mcg/dose inhalation disk 2020-06 0-03 13:23: 04 Yes 1{puff} Inhale 1 Puff once daily as needed. [facility] Cranberry Extract 200 mg Cap 2020-06 0- 13:23: 04 Yes Take by mouth. [facility] omeprazole 20 mg capsule 2020-06 0- 13:23: 04 Yes 20mg Take 20 mg by mouth daily. [facility] brimonidine 0.2 % ophthalmic solution 2020-06 0 13:23: 04 Yes brimonidin e 0.2 % eye drops [facility] latanoprost , PF, 0.005 % Drop 2020-06 0- 13:23: 04 Yes latanopros t 0.005 % eye drops [facility] fluticasone -salmeterol (ADVAIR DISKUS) 250-50 mcg/dose inhalation disk 2020-06 0- 13:23: 04 Yes 1{puff} Inhale 1 Puff once daily as needed. [facility] Cranberry Extract 200 mg Cap 2020-06 0 13:23: 04 Yes Take by mouth. [facility] omeprazole 20 mg capsule 2020-06 0 13:23: 04 Yes 20mg Take 20 mg by mouth daily. [facility] brimonidine 0.2 % ophthalmic solution 2020-06 0- 13:23: 04 Yes brimonidin e 0.2 % eye drops [facility] latanoprost , PF, 0.005 % Drop 2020-06 0- 13:23: 04 Yes latanopros t 0.005 % eye drops [facility] fluticasone -salmeterol (ADVAIR DISKUS) 250-50 mcg/dose inhalation disk 2020-06 0- 13:23: 04 Yes 1{puff} Inhale 1 Puff once daily as needed. [facility] Cranberry Extract 200 mg Cap 2020-06 0-03 13:23: 04 Yes Take by mouth. [facility] omeprazole 20 mg capsule 2020-06 0- 13:23: 04 Yes 20mg Take 20 mg by mouth daily. [facility] brimonidine 0.2 % ophthalmic solution 2020-06 0- 13:23: 04 Yes brimonidin e 0.2 % eye drops [facility] latanoprost , PF, 0.005 % Drop 2020-06 0 13:23: 04 Yes latanopros t 0.005 % eye drops [facility] fluticasone -salmeterol (ADVAIR DISKUS) 250-50 mcg/dose inhalation disk 2020-06 0 13:23: 04 Yes 1{puff} Inhale 1 Puff once daily as needed. [facility] Cranberry Extract 200 mg Cap 2020-06 0 13:23: 04 Yes Take by mouth. [facility] omeprazole 20 mg capsule 2020-06 0 13:23: 04 Yes 20mg Take 20 mg by mouth daily. [facility] brimonidine 0.2 % ophthalmic solution 2020-06 0 13:23: 04 Yes brimonidin e 0.2 % eye drops [facility] latanoprost , PF, 0.005 % Drop 2020-06 0 13:23: 04 Yes latanopros t 0.005 % eye drops [facility] fluticasone -salmeterol (ADVAIR DISKUS) 250-50 mcg/dose inhalation disk 2020-06 0- 13:23: 04 Yes 1{puff} Inhale 1 Puff once daily as needed. [facility] Cranberry Extract 200 mg Cap 2020-06 0 13:23: 04 Yes Take by mouth. [facility] omeprazole 20 mg capsule 2020-06 0- 13:23: 04 Yes 20mg Take 20 mg by mouth daily. [facility] brimonidine 0.2 % ophthalmic solution 2020-06 0- 13:23: 04 Yes brimonidin e 0.2 % eye drops [facility] latanoprost , PF, 0.005 % Drop 2020-06 13:23: 04 Yes latanopros t 0.005 % eye drops [facility] fluticasone -salmeterol (ADVAIR DISKUS) 250-50 mcg/dose inhalation disk 2020-06 13:23: 04 Yes 1{puff} Inhale 1 Puff once daily as needed. [facility] Cranberry Extract 200 mg Cap 2020-06 13:23: 04 Yes Take by mouth. [facility] omeprazole 20 mg capsule 2020-06 13:23: 04 Yes 20mg Take 20 mg by mouth daily. [facility] brimonidine 0.2 % ophthalmic solution 2020-06 13:23: 04 Yes brimonidin e 0.2 % eye drops [facility] latanoprost , PF, 0.005 % Drop 2020-06 13:23: 04 Yes latanopros t 0.005 % eye drops [facility] traMADoL 50 mg tablet 12-28 00:00: 00 Yes 4647 50mg Take 1 tablet by mouth every 4 (four) hours as needed for Pain (scale 7-10). Indication s: acute pain [facility] traMADoL 50 mg tablet 12-28 00:00: 00 Yes 4647 50mg Take 1 tablet by mouth every 4 (four) hours as needed for Pain (scale 7-10). Indication s: acute pain [facility] traMADoL 50 mg tablet 12-28 00:00: 00 Yes 4647 50mg Take 1 tablet by mouth every 4 (four) hours as needed for Pain (scale 7-10). Indication s: acute pain [facility] traMADoL 50 mg tablet 12-28 00:00: 00 Yes 4647 50mg Take 1 tablet by mouth every 4 (four) hours as needed for Pain (scale 7-10). Indication s: acute pain [facility] traMADoL 50 mg tablet 12-28 00:00: 00 Yes 4647 50mg Take 1 tablet by mouth every 4 (four) hours as needed for Pain (scale 7-10). Indication s: acute pain [facility] traMADoL 50 mg tablet 12-28 00:00: 00 Yes 4647 50mg Take 1 tablet by mouth every 4 (four) hours as needed for Pain (scale 7-10). Indication s: acute pain [facility] traMADoL 50 mg tablet 12-28 00:00: 00 Yes 4647 50mg Take 1 tablet by mouth every 4 (four) hours as needed for Pain (scale 7-10). Indication s: acute pain [facility] traMADoL 50 mg tablet 12-28 00:00: 00 Yes 4647 50mg Take 1 tablet by mouth every 4 (four) hours as needed for Pain (scale 7-10). Indication s: acute pain [facility] traMADoL 50 mg tablet 12-28 00:00: 00 Yes 4647 50mg Take 1 tablet by mouth every 4 (four) hours as needed for Pain (scale 7-10). Indication s: acute pain [facility] traMADoL 50 mg tablet 12-28 00:00: 00 Yes 4647 50mg Take 1 tablet by mouth every 4 (four) hours as needed for Pain (scale 7-10). Indication s: acute pain [facility] traMADoL 50 mg tablet 12-28 00:00: 00 Yes 4647 50mg Take 1 tablet by mouth every 4 (four) hours as needed for Pain (scale 7-10). Indication s: acute pain [facility] traMADoL 50 mg tablet 12-28 00:00: 00 Yes 4647 50mg Take 1 tablet by mouth every 4 (four) hours as needed for Pain (scale 7-10). Indication s: acute pain [facility] traMADoL 50 mg tablet 12-28 00:00: 00 Yes 4647 50mg Take 1 tablet by mouth every 4 (four) hours as needed for Pain (scale 7-10). Indication s: acute pain [facility] traMADoL 50 mg tablet 12-28 00:00: 00 Yes 4647 50mg Take 1 tablet by mouth every 4 (four) hours as needed for Pain (scale 7-10). Indication s: acute pain [facility] traMADoL 50 mg tablet 12-28 00:00: 00 Yes 4647 50mg Take 1 tablet by mouth every 4 (four) hours as needed for Pain (scale 7-10). Indication s: acute pain [facility] traMADoL 50 mg tablet 12-28 00:00: 00 Yes 4647 50mg Take 1 tablet by mouth every 4 (four) hours as needed for Pain (scale 7-10). Indication s: acute pain [facility] traMADoL 50 mg tablet 12-28 00:00: 00 Yes 4647 50mg Take 1 tablet by mouth every 4 (four) hours as needed for Pain (scale 7-10). Indication s: acute pain [facility] traMADoL 50 mg tablet 12-28 00:00: 00 Yes 4647 50mg Take 1 tablet by mouth every 4 (four) hours as needed for Pain (scale 7-10). Indication s: acute pain [facility] traMADoL 50 mg tablet 12-28 00:00: 00 Yes 4647 50mg Take 1 tablet by mouth every 4 (four) hours as needed for Pain (scale 7-10). Indication s: acute pain [facility] traMADoL 50 mg tablet 12-28 00:00: 00 Yes 4647 50mg Take 1 tablet by mouth every 4 (four) hours as needed for Pain (scale 7-10). Indication s: acute pain [facility] traZODone 50 mg tablet 0 12-15 00:00: 00 Yes [facility] traZODone 50 mg tablet 0 12-15 00:00: 00 Yes [facility] traZODone 50 mg tablet 0 12-15 00:00: 00 Yes [facility] traZODone 50 mg tablet 0 12-15 00:00: 00 Yes [facility] traZODone 50 mg tablet 0 7-14 00:00: 00 Yes [facility] traZODone 50 mg tablet 1-0 14 00:00: 00 Yes [facility] traZODone 50 mg tablet 1-0 14 00:00: 00 Yes [facility] traZODone 50 mg tablet 1-0 14 00:00: 00 Yes [facility] traZODone 50 mg tablet 1-0 14 00:00: 00 Yes [facility] traZODone 50 mg tablet 1-0 14 00:00: 00 Yes [facility] traZODone 50 mg tablet 1-0 14 00:00: 00 Yes [facility] traZODone 50 mg tablet 2020-0 14 00:00: 00 Yes [facility] traZODone 50 mg tablet 1-0 14 00:00: 00 Yes [facility] traZODone 50 mg tablet 2020-0 14 00:00: 00 Yes [facility] traZODone 50 mg tablet 2020-0 14 00:00: 00 Yes [facility] traZODone 50 mg tablet 2020-0 14 00:00: 00 Yes [facility] traZODone 50 mg tablet 2020-0 14 00:00: 00 Yes [facility] traZODone 50 mg tablet 1-0 14 00:00: 00 Yes [facility] traZODone 50 mg tablet 2020-0 14 00:00: 00 Yes [facility] traZODone 50 mg tablet 1-0 14 00:00: 00 Yes [facility] latanoprost 0.005 % ophthalmic drops 11-06 00:00: 00 Yes [facility] latanoprost 0.005 % ophthalmic drops 11-06 00:00: 00 Yes [facility] latanoprost 0.005 % ophthalmic drops 0 11-06 00:00: 00 Yes [facility] latanoprost 0.005 % ophthalmic drops 11-06 00:00: 00 Yes [facility] latanoprost 0.005 % ophthalmic drops 11-06 00:00: 00 Yes [facility] latanoprost 0.005 % ophthalmic drops 11-06 00:00: 00 Yes [facility] latanoprost 0.005 % ophthalmic drops 11-06 00:00: 00 Yes [facility] latanoprost 0.005 % ophthalmic drops 11-06 00:00: 00 Yes [facility] latanoprost 0.005 % ophthalmic drops 11-06 00:00: 00 Yes [facility] latanoprost 0.005 % ophthalmic drops 11-06 00:00: 00 Yes [facility] latanoprost 0.005 % ophthalmic drops 11-06 00:00: 00 Yes [facility] latanoprost 0.005 % ophthalmic drops 11-06 00:00: 00 Yes [facility] latanoprost 0.005 % ophthalmic drops 11-06 00:00: 00 Yes [facility] latanoprost 0.005 % ophthalmic drops 11-06 00:00: 00 Yes [facility] latanoprost 0.005 % ophthalmic drops 11-06 00:00: 00 Yes [facility] latanoprost 0.005 % ophthalmic drops 11-06 00:00: 00 Yes [facility] latanoprost 0.005 % ophthalmic drops 11-06 00:00: 00 Yes [facility] latanoprost 0.005 % ophthalmic drops 11-06 00:00: 00 Yes [facility] latanoprost 0.005 % ophthalmic drops 11-06 00:00: 00 Yes [facility] latanoprost 0.005 % ophthalmic drops 11-06 00:00: 00 Yes [facility] atorvastati n 20 mg tablet 11-04 00:00: 00 Yes [facility] atorvastati n 20 mg tablet 11-04 00:00: 00 Yes [facility] atorvastati n 20 mg tablet 11-04 00:00: 00 Yes [facility] atorvastati n 20 mg tablet 11-04 00:00: 00 Yes [facility] atorvastati n 20 mg tablet 11-04 00:00: 00 Yes [facility] atorvastati n 20 mg tablet 11-04 00:00: 00 Yes [facility] atorvastati n 20 mg tablet 11-04 00:00: 00 Yes [facility] atorvastati n 20 mg tablet 11-04 00:00: 00 Yes [facility] atorvastati n 20 mg tablet 11-04 00:00: 00 Yes [facility] atorvastati n 20 mg tablet 11-04 00:00: 00 Yes [facility] atorvastati n 20 mg tablet 11-04 00:00: 00 Yes [facility] atorvastati n 20 mg tablet 11-04 00:00: 00 Yes [facility] atorvastati n 20 mg tablet 11-04 00:00: 00 Yes [facility] atorvastati n 20 mg tablet 11-04 00:00: 00 Yes [facility] atorvastati n 20 mg tablet 11-04 00:00: 00 Yes [facility] atorvastati n 20 mg tablet 11-04 00:00: 00 Yes [facility] atorvastati n 20 mg tablet 11-04 00:00: 00 Yes [facility] atorvastati n 20 mg tablet 11-04 00:00: 00 Yes [facility] atorvastati n 20 mg tablet 11-04 00:00: 00 Yes [facility] atorvastati n 20 mg tablet 11-04 00:00: 00 Yes [facility] carvedilol 12.5 mg tablet 10-30 00:00: 00 Yes [facility] carvedilol 12.5 mg tablet 10-30 00:00: 00 Yes [facility] carvedilol 12.5 mg tablet 10-30 00:00: 00 Yes [facility] carvedilol 12.5 mg tablet 10-30 00:00: 00 Yes [facility] carvedilol 12.5 mg tablet 10-30 00:00: 00 Yes [facility] carvedilol 12.5 mg tablet 10-30 00:00: 00 Yes [facility] carvedilol 12.5 mg tablet 10-30 00:00: 00 Yes [facility] carvedilol 12.5 mg tablet 10-30 00:00: 00 Yes [facility] carvedilol 12.5 mg tablet 10-30 00:00: 00 Yes [facility] carvedilol 12.5 mg tablet 10-30 00:00: 00 Yes [facility] carvedilol 12.5 mg tablet 10-30 00:00: 00 Yes [facility] carvedilol 12.5 mg tablet 10-30 00:00: 00 Yes [facility] carvedilol 12.5 mg tablet 10-30 00:00: 00 Yes [facility] carvedilol 12.5 mg tablet 10-30 00:00: 00 Yes [facility] carvedilol 12.5 mg tablet 10-30 00:00: 00 Yes [facility] carvedilol 12.5 mg tablet 10-30 00:00: 00 Yes [facility] carvedilol 12.5 mg tablet 10-30 00:00: 00 Yes [facility] carvedilol 12.5 mg tablet 10-30 00:00: 00 Yes [facility] carvedilol 12.5 mg tablet 10-30 00:00: 00 Yes [facility] carvedilol 12.5 mg tablet 10-30 00:00: 00 Yes [facility] famotidine 40 mg tablet 10-22 00:00: 00 Yes [facility] famotidine 40 mg tablet 10-22 00:00: 00 Yes [facility] famotidine 40 mg tablet 10-22 00:00: 00 Yes [facility] famotidine 40 mg tablet 10-22 00:00: 00 Yes [facility] famotidine 40 mg tablet 10-22 00:00: 00 Yes [facility] famotidine 40 mg tablet 10-22 00:00: 00 Yes [facility] famotidine 40 mg tablet 10-22 00:00: 00 Yes [facility] famotidine 40 mg tablet 10-22 00:00: 00 Yes [facility] famotidine 40 mg tablet 10-22 00:00: 00 Yes [facility] famotidine 40 mg tablet 10-22 00:00: 00 Yes [facility] famotidine 40 mg tablet 10-22 00:00: 00 Yes [facility] famotidine 40 mg tablet 10-22 00:00: 00 Yes [facility] famotidine 40 mg tablet 10-22 00:00: 00 Yes [facility] famotidine 40 mg tablet 10-22 00:00: 00 Yes [facility] famotidine 40 mg tablet 10-22 00:00: 00 Yes [facility] famotidine 40 mg tablet 10-22 00:00: 00 Yes [facility] famotidine 40 mg tablet 10-22 00:00: 00 Yes [facility] famotidine 40 mg tablet 10-22 00:00: 00 Yes [facility] famotidine 40 mg tablet 10-22 00:00: 00 Yes [facility] famotidine 40 mg tablet 10-22 00:00: 00 Yes [facility] gabapentin 600 mg tablet 10-08 00:00: 00 Yes [facility] gabapentin 600 mg tablet 10-08 00:00: 00 Yes [facility] gabapentin 600 mg tablet 10-08 00:00: 00 Yes [facility] gabapentin 600 mg tablet 10-08 00:00: 00 Yes [facility] gabapentin 600 mg tablet 10-08 00:00: 00 Yes [facility] gabapentin 600 mg tablet 10-08 00:00: 00 Yes [facility] gabapentin 600 mg tablet 10-08 00:00: 00 Yes [facility] gabapentin 600 mg tablet 10-08 00:00: 00 Yes [facility] gabapentin 600 mg tablet 10-08 00:00: 00 Yes [facility] gabapentin 600 mg tablet 10-08 00:00: 00 Yes [facility] gabapentin 600 mg tablet 10-08 00:00: 00 Yes [facility] gabapentin 600 mg tablet 10-08 00:00: 00 Yes [facility] gabapentin 600 mg tablet 10-08 00:00: 00 Yes [facility] gabapentin 600 mg tablet 10-08 00:00: 00 Yes [facility] gabapentin 600 mg tablet 10-08 00:00: 00 Yes [facility] gabapentin 600 mg tablet 10-08 00:00: 00 Yes [facility] gabapentin 600 mg tablet 10-08 00:00: 00 Yes [facility] gabapentin 600 mg tablet 10-08 00:00: 00 Yes [facility] gabapentin 600 mg tablet 10-08 00:00: 00 Yes [facility] gabapentin 600 mg tablet 10-08 00:00: 00 Yes [facility] levothyroxi ne 50 mcg tablet 08-31 00:00: 00 Yes [facility] levothyroxi ne 50 mcg tablet 08-31 00:00: 00 Yes [facility] levothyroxi ne 50 mcg tablet 08-31 00:00: 00 Yes [facility] levothyroxi ne 50 mcg tablet 08-31 00:00: 00 Yes [facility] levothyroxi ne 50 mcg tablet 08-31 00:00: 00 Yes [facility] levothyroxi ne 50 mcg tablet 08-31 00:00: 00 Yes [facility] levothyroxi ne 50 mcg tablet 08-31 00:00: 00 Yes [facility] levothyroxi ne 50 mcg tablet 08-31 00:00: 00 Yes [facility] levothyroxi ne 50 mcg tablet 08-31 00:00: 00 Yes [facility] levothyroxi ne 50 mcg tablet 08-31 00:00: 00 Yes [facility] levothyroxi ne 50 mcg tablet 08-31 00:00: 00 Yes [facility] levothyroxi ne 50 mcg tablet 08-31 00:00: 00 Yes [facility] levothyroxi ne 50 mcg tablet 08-31 00:00: 00 Yes [facility] levothyroxi ne 50 mcg tablet 08-31 00:00: 00 Yes [facility] levothyroxi ne 50 mcg tablet 08-31 00:00: 00 Yes [facility] levothyroxi ne 50 mcg tablet 08-31 00:00: 00 Yes [facility] levothyroxi ne 50 mcg tablet 08-31 00:00: 00 Yes [facility] levothyroxi ne 50 mcg tablet 08-31 00:00: 00 Yes [facility] levothyroxi ne 50 mcg tablet 08-31 00:00: 00 Yes [facility] levothyroxi ne 50 mcg tablet 08-31 00:00: 00 Yes [facility] tramadol 37.5 mg-acetamin ophen 325 mg tablet tramadol 37.5 mg-acetamin ophen 325 mg tablet No tramadol 37.5 mg-acetami nophen 325 mg tablet [facility] acetaminoph en 300 mg-codeine 30 mg tablet acetaminoph en 300 mg-codeine 30 mg tablet No acetaminop hen 300 mg-codeine 30 mg tablet [facility] Advair Diskus 250 mcg-50 mcg/dose powder for inhalation Advair Diskus 250 mcg-50 mcg/dose powder for inhalation No Advair Diskus 250 mcg-50 mcg/dose powder for inhalation [facility] amitriptyli ne 10 mg tablet amitriptyli ne 10 mg tablet No amitriptyl ine 10 mg tablet [facility] amlodipine 5 mg tablet amlodipine 5 mg tablet No amlodipine 5 mg tablet [facility] atorvastati n 20 mg tablet atorvastati n 20 mg tablet No atorvastat in 20 mg tablet [facility] azithromyci n 250 mg tablet azithromyci n 250 mg tablet No azithromyc in 250 mg tablet [facility] azithromyci n 500 mg tablet azithromyci n 500 mg tablet No azithromyc in 500 mg tablet [facility] Boostrix Tdap 2.5 Lf unit-8 mcg-5 Lf/0.5 mL intramuscul ar syringe Boostrix Tdap 2.5 Lf unit-8 mcg-5 Lf/0.5 mL intramuscul ar syringe No Boostrix Tdap 2.5 Lf unit-8 mcg-5 Lf/0.5 mL intramuscu lar syringe [facility] brimonidine 0.2 % eye drops brimonidine 0.2 % eye drops No brimonidin e 0.2 % eye drops [facility] carvedilol 12.5 mg tablet carvedilol 12.5 mg tablet No carvedilol 12.5 mg tablet [facility] cefuroxime axetil 500 mg tablet Take 1 tablet every 12 hours by oral route as directed for 10 days. cefuroxime axetil 500 mg tablet Take 1 tablet every 12 hours by oral route as directed for 10 days. No 1 Q12H cefuroxime axetil 500 mg tablet Take 1 tablet every 12 hours by oral route as directed for 10 days. [facility] cephalexin 250 mg capsule TAKE ONE CAPSULE BY MOUTH DAILY DIRECTED cephalexin 250 mg capsule TAKE ONE CAPSULE BY MOUTH DAILY DIRECTED No cephalexin 250 mg capsule TAKE ONE CAPSULE BY MOUTH DAILY DIRECTED [facility] cephalexin 500 mg capsule cephalexin 500 mg capsule No cephalexin 500 mg capsule [facility] ciprofloxac in 500 mg tablet Take 1 tablet every 12 hours by oral route as directed for 10 days. ciprofloxac in 500 mg tablet Take 1 tablet every 12 hours by oral route as directed for 10 days. No 1 Q12H ciprofloxa magy 500 mg tablet Take 1 tablet every 12 hours by oral route as directed for 10 days. [facility] diclofenac sodium 75 mg tablet,chris yed release diclofenac sodium 75 mg tablet,chris yed release No diclofenac sodium 75 mg tablet,del ayed release [facility] dorzolamide 2 % eye drops dorzolamide 2 % eye drops No dorzolamid e 2 % eye drops [facility] estradiol 0.01% (0.1 mg/gram) vaginal cream Insert 0.5 g by vaginal route as directed for 30 days. estradiol 0.01% (0.1 mg/gram) vaginal cream Insert 0.5 g by vaginal route as directed for 30 days. No .5g estradiol 0.01% (0.1 mg/gram) vaginal cream Insert 0.5 g by vaginal route as directed for 30 days. [facility] famotidine 40 mg tablet famotidine 40 mg tablet No famotidine 40 mg tablet [facility] fluconazole 150 mg tablet Take 1 tablet by oral route as directed for 1 day. fluconazole 150 mg tablet Take 1 tablet by oral route as directed for 1 day. No fluconazol e 150 mg tablet Take 1 tablet by oral route as directed for 1 day. [facility] fluticasone propionate 50 mcg/actuati on nasal spray,suspe nsion fluticasone propionate 50 mcg/actuati on nasal spray,suspe nsion No fluticason e propionate 50 mcg/actuat ion nasal spray,susp ension [facility] Fluzone High-Dose 7260-3124 (PF) 180 mcg/0.5 mL intramuscul ar syringe ADM 0.5ML IM UTD Fluzone High-Dose (PF) 180 mcg/0.5 mL intramuscul ar syringe ADM 0.5ML IM UTD No Fluzone High-Dose (PF) 180 mcg/0.5 mL intramuscu lar syringe ADM 0.5ML IM UTD [facility] gabapentin 600 mg tablet gabapentin 600 mg tablet No gabapentin 600 mg tablet [facility] Gas Relief Extra Strength 125 mg chewable tablet CHEW AND SWALLOW 1 TABLET BY MOUTH 1-3 TIMES A DAY Gas Relief Extra Strength 125 mg chewable tablet CHEW AND SWALLOW 1 TABLET BY MOUTH 1-3 TIMES A DAY No Gas Relief Extra Strength 125 mg chewable tablet CHEW AND SWALLOW 1 TABLET BY MOUTH 1-3 TIMES A DAY [facility] latanoprost 0.005 % eye drops latanoprost 0.005 % eye drops No latanopros t 0.005 % eye drops [facility] levothyroxi ne 50 mcg tablet levothyroxi ne 50 mcg tablet No levothyrox ine 50 mcg tablet [facility] lisinopril 20 mg tablet lisinopril 20 mg tablet No lisinopril 20 mg tablet [facility] lisinopril 20 mg-hydrochl orothiazide 12.5 mg tablet lisinopril 20 mg-hydrochl orothiazide 12.5 mg tablet No lisinopril 20 mg-hydroch lorothiazi de 12.5 mg tablet [facility] metronidazo le 500 mg tablet metronidazo le 500 mg tablet No metronidaz ole 500 mg tablet [facility] nitrofurant oin macrocrysta l 100 mg capsule nitrofurant oin macrocrysta l 100 mg capsule No nitrofuran toin macrocryst al 100 mg capsule [facility] nitrofurant oin monohydrate /macrocryst als 100 mg capsule nitrofurant oin monohydrate /macrocryst als 100 mg capsule No nitrofuran toin monohydrat e/macrocry stals 100 mg capsule [facility] ondansetron 4 mg disintegrat ing tablet ondansetron 4 mg disintegrat ing tablet No ondansetro n 4 mg disintegra ting tablet [facility] Premarin 0.625 mg/gram vaginal cream Insert 0.5 g every 72 hours by vaginal route as directed for 30 days. Premarin 0.625 mg/gram vaginal cream Insert 0.5 g every 72 hours by vaginal route as directed for 30 days. No .5g Premarin 0.625 mg/gram vaginal cream Insert 0.5 g every 72 hours by vaginal route as directed for 30 days. [facility] promethazin e 25 mg tablet TAKE 1 TABLET BY MOUTH EVERY 6 HOURS NEEDED FOR NAUSEA promethazin e 25 mg tablet TAKE 1 TABLET BY MOUTH EVERY 6 HOURS NEEDED FOR NAUSEA No promethazi ne 25 mg tablet TAKE 1 TABLET BY MOUTH EVERY 6 HOURS NEEDED FOR NAUSEA [facility] Shingrix (PF) 50 mcg/0.5 mL intramuscul ar suspension, kit Shingrix (PF) 50 mcg/0.5 mL intramuscul ar suspension, kit No Shingrix (PF) 50 mcg/0.5 mL intramuscu lar suspension , kit [facility] sulfamethox azole 800 mg-trimetho prim 160 mg tablet sulfamethox azole 800 mg-trimetho prim 160 mg tablet No sulfametho xazole 800 mg-trimeth oprim 160 mg tablet [facility] Immunizations Ordered Immunization Name Filled Immunization Name Date Status Comments Source SARS-COV-2 COVID-19 MODERNA VACCINE 2021-02-10 00:00:00 Completed [facility] SARS-COV-2 COVID-19 MODERNA VACCINE 2021-02-10 00:00:00 Completed [facility] SARS-COV-2 COVID-19 MODERNA VACCINE 2021-02-10 00:00:00 Completed [facility] SARS-COV-2 COVID-19 MODERNA VACCINE 2021-02-10 00:00:00 Completed [facility] SARS-COV-2 COVID-19 MODERNA VACCINE 2021-02-10 00:00:00 Completed [facility] SARS-COV-2 COVID-19 MODERNA 12+ YRS VACCINE 2021-02-10 00:00:00 Completed [facility] SARS-COV-2 COVID-19 MODERNA 12+ YRS VACCINE 2021-02-10 00:00:00 Completed [facility] SARS-COV-2 COVID-19 MODERNA 12+ YRS VACCINE 2021-02-10 00:00:00 Completed [facility] SARS-COV-2 COVID-19 MODERNA 12+ YRS VACCINE 2021-02-10 00:00:00 Completed [facility] SARS-COV-2 COVID-19 MODERNA 12+ YRS VACCINE 2021-02-10 00:00:00 Completed [facility] SARS-COV-2 COVID-19 MODERNA 12+ YRS VACCINE 2021-02-10 00:00:00 Completed [facility] SARS-COV-2 COVID-19 MODERNA 12+ YRS VACCINE 2021-02-10 00:00:00 Completed [facility] SARS-COV-2 COVID-19 MODERNA 12+ YRS VACCINE 2021-02-10 00:00:00 Completed [facility] SARS-COV-2 COVID-19 MODERNA 12+ YRS VACCINE 2021-02-10 00:00:00 Completed [facility] TDAP 2018-11-22 00:00:00 Completed [facility] TDAP 2018-11-22 00:00:00 Completed [facility] TDAP 2018-11-22 00:00:00 Completed [facility] TDAP 2018-11-22 00:00:00 Completed [facility] TDAP 2018-11-22 00:00:00 Completed [facility] TDAP 2018-11-22 00:00:00 Completed [facility] TDAP 2018-11-22 00:00:00 Completed [facility] TDAP 2018-11-22 00:00:00 Completed [facility] TDAP 2018-11-22 00:00:00 Completed [facility] TDAP 2018-11-22 00:00:00 Completed [facility] TDAP 2018-11-22 00:00:00 Completed [facility] TDAP 2018-11-22 00:00:00 Completed [facility] TDAP 2018-11-22 00:00:00 Completed [facility] TDAP 2018-11-22 00:00:00 Completed [facility] Zoster Vaccine Recombinant 2018-01-18 00:00:00 Completed [facility] Zoster Vaccine Recombinant 2018-01-18 00:00:00 Completed [facility] Zoster Vaccine Recombinant 2018-01-18 00:00:00 Completed [facility] Zoster Vaccine Recombinant 2018-01-18 00:00:00 Completed [facility] Zoster Vaccine Recombinant 2018-01-18 00:00:00 Completed [facility] Zoster Vaccine Recombinant 2018-01-18 00:00:00 Completed [facility] Zoster Vaccine Recombinant 2018-01-18 00:00:00 Completed [facility] Zoster Vaccine Recombinant 2018-01-18 00:00:00 Completed [facility] Zoster Vaccine Recombinant 2018-01-18 00:00:00 Completed [facility] Zoster Vaccine Recombinant 2018-01-18 00:00:00 Completed [facility] Zoster Vaccine Recombinant 2018-01-18 00:00:00 Completed [facility] Zoster Vaccine Recombinant 2018-01-18 00:00:00 Completed [facility] Zoster Vaccine Recombinant 2018-01-18 00:00:00 Completed [facility] Zoster Vaccine Recombinant 2018-01-18 00:00:00 Completed [facility] TDAP Unknown Completed [facility] Zoster Vaccine Recombinant Unknown Completed [facility] SARS-COV-2 COVID-19 MODERNA 12+ YRS VACCINE Unknown Completed [facility] TDAP Unknown Completed [facility] Zoster Vaccine Recombinant Unknown Completed [facility] SARS-COV-2 COVID-19 MODERNA 12+ YRS VACCINE Unknown Completed [facility] TDAP Unknown Completed [facility] Zoster Vaccine Recombinant Unknown Completed [facility] SARS-COV-2 COVID-19 MODERNA 12+ YRS VACCINE Unknown Completed [facility] TDAP Unknown Completed [facility] Zoster Vaccine Recombinant Unknown Completed [facility] SARS-COV-2 COVID-19 MODERNA 12+ YRS VACCINE Unknown Completed [facility] TDAP Unknown Completed [facility] Zoster Vaccine Recombinant Unknown Completed [facility] SARS-COV-2 COVID-19 MODERNA 12+ YRS VACCINE Unknown Completed [facility] TDAP Unknown Completed [facility] Zoster Vaccine Recombinant Unknown Completed [facility] SARS-COV-2 COVID-19 MODERNA 12+ YRS VACCINE Unknown Completed [facility] Vital Signs Vital Name Observation Time Observation Value Comments S ource Systolic blood pressure 2023-04-29 01:21:00 126 mm[Hg] [facility] Diastolic blood pressure 2023-04-29 01:21:00 85 mm[Hg] [facility] Heart rate 2023-04-29 01:21:00 86 /min [facility] Body temperature 2023-04-29 01:21:00 37.11 Aleida [facility] Respiratory rate 2023-04-29 01:21:00 18 /min [facility] Oxygen saturation in Arterial blood by Pulse oximetry 2023-04-29 01:21:00 100 /min [facility] Systolic blood pressure 2023-04-05 15:37:00 104 mm[Hg] [facility] Diastolic blood pressure 2023-04-05 15:37:00 64 mm[Hg] [facility] Heart rate 2023-04-05 15:37:00 75 /min [facility] Body height 2023-04-05 15:37:00 154.9 cm [facility] Body weight 2023-04-05 15:37:00 53.842 kg [facility] BMI 2023-04-05 15:37:00 22.43 kg/m2 [facility] Systolic blood pressure 2022-11-17 16:17:00 142 mm[Hg] [facility] Diastolic blood pressure 2022-11-17 16:17:00 56 mm[Hg] [facility] Heart rate 2022-11-17 16:17:00 52 /min [facility] Body height 2022-11-17 16:16:00 162.6 cm [facility] Body weight 2022-11-17 16:16:00 62.551 kg [facility] BMI 2022-11-17 16:16:00 23.67 kg/m2 [facility] Systolic blood pressure 2022-03-21 15:34:00 138 mm[Hg] [facility] Diastolic blood pressure 2022-03-21 15:34:00 72 mm[Hg] [facility] Heart rate 2022-03-21 15:34:00 64 /[facility] 2022-03-21 15:34:00 154.9 cm [facility] Body weight 2022-03-21 15:34:00 66.679 kg [facility] BMI 2022-03-21 15:34:00 27.78 kg/m2 [facility] Oxygen saturation in Arterial blood by Pulse oximetry 2022-03-21 15:34:00 98 /min [facility] BP Diastolic 2020-09-14 00:00:00 62 mm[Hg] [facility] Height 2020-09-14 00:00:00 61 [in_i] [facility] BMI (Body Mass Index) 2020-09-14 00:00:00 26.5 kg/m2 [facility] BP Systolic 2020-09-14 00:00:00 116 mm[Hg] [facility] Body Weight 2020-09-14 00:00:00 140 [lb_av] [facility] Procedures Procedure Date / Time Performed Performing Clinician Source NOTICE OF PRIVACY PRACTICES 2023-04-29 01:01:15 Doctor Unassigned, Haslet [facility] CONSENT/REFUSAL FOR DIAGNOSIS AND TREATMENT 2023-04-29 01:00:55 Doctor Unassigned, Haslet [facility] XR HIPS 2 VW BILATERAL 2023-04-05 15:47:45 Deuce Johnson [facility] PATIENT FINANCIAL POLICY 2022-11-17 16:08:44 Doctor Unassigned, Haslet [facility] CONSENT/REFUSAL FOR DIAGNOSIS AND TREATMENT 2022-03-21 15:31:03 Doctor Unassigned, Haslet [facility] ASSIGNMENT OF BENEFITS 2021-09-01 15:36:52 Docto r Unassigned, Haslet [facility] ASSIGNMENT OF BENEFITS 2021-08-04 20:54:34 Docto r Unassigned, Haslet [facility] Hysterectomy with Oopherectomy (Ovaries Removed) [facility] Medical Cataract Surgery Complex [facility] Tonsilectomy/adenoids [facility] - Arthroscopic Surgery [facility] Bowel to Bowel Fusion [facility] - Hip Replacement [facility] Prolapse, Abdominal Repair: Enterocele Repair [facility] Cholecystectomy (Gallbladder) [facility] Appendectomy [facility] Hernia Repair [facility] Plan of Care Planned Activity Planned Date Details Comments Source Diagnostic Test Pending 2020-09-15 00:00:00 urinalysis, complete [code = urinalysis, complete] [facility] Diagnostic Test Pending 2020-09-14 00:00:00 urinalysis, dipstick [code = urinalysis, dipstick] [facility] Encounters Start Date/Time End Date/Time Encounter Type Admission Type Attending [facility] Care Facility Care Department Encounter ID Source 2022-10-09 13:34:[address] [facility] [id number] [facility] 2022-10-04 10:27:[address] [facility] [id number] [facility] 2022-10-02 09:15:[address] [facility] [id number] [facility] 2022-10-02 07:21:[address] [facility] [id number] [facility] 2022-09-20 09:46:[address] [facility] [id number] [facility] 2021-04-05 02:59:47 Emergency [facility] [id number] [facility] 2021-04-04 22:05:32 Emergency [facility] [id number] [facility] 2021-04-04 09:11:17 Inpatient MARTA MAHONEY [facility] SOR [id number] [facility] 2021-04-03 05:23:20 Emergency [facility] [id number] [facility] 2023-05-02 13:15:00 2023-05-02 13:15:00 Outpatient MARTA MAHONEY CRAIG [facility] [id number] [facility] 2023-04-30 08:00:00 2023-04-30 08:00:00 Outpatient R [facility] [id number] [facility] 2023-04-28 19:26:00 2023-04-28 19:42:00 Emergency X TENZIN THURMAN [facility] ERT [id number] [facility] 2023-04-28 19:26:00 2023-04-28 19:42:00 Emergency Tenzin Thurman [facility] 1..840.114 350.1.13.10 4.2.7.2.686 [id number] [facility] 2023-04-05 10:36:44 2023-04-05 23:59:00 Hospital Encounter Marta [facility] 1..840.114 350.1.13.10 4.2.7.2.686 [id number] [facility] 2023-04-05 10:45:00 2023-04-05 10:53:32 Outpatient R [facility] [id number] [facility] 2023-04-05 10:45:00 2023-04-05 10:53:32 Office Visit Johnson Marta Flores [facility] 1..840.114 350.1.13.10 4.2.7.2.686 [id number] [facility] 2023-03-07 09:47:00 2023-03-07 09:47:00 Outpatient EL Kimberly, Suman [facility] [id number] [facility] 2023-01-08 06:18:00 2023-01-08 06:18:00 Outpatient EL Kimberly, Suman [facility] [id number] [facility] 2022-11-17 11:15:00 2022-11-17 11:30:00 [facility] 1..840.114 350.1.13.10 4.2.7.2.686 [id number] [facility] 2022-11-17 11:15:00 2022-11-17 11:15:00 Outpatient R ARLEY DELGADILLO [facility] [id number] [facility] 2022-11-17 00:00:00 2022-11-17 00:00:00 Orders Only Doctor Unassigned, Haslet [facility] 1..114 350.1.13.10 4.2.7.2.686 [id number] [facility] 2022-10-06 10:30:00 2022-10-06 10:30:[address] [facility] [id number] [facility] 2022-04-06 14:30:00 2022-04-06 14:30:00 Outpatient MARTA MAHONEY [facility] [id number] [facility] 2022-03-31 13:45:00 2022-03-31 15:23:01 Outpatient MARTA MAHONEY [facility] [id number] [facility] 2022-03-31 13:45:00 2022-03-31 15:23:01 Ancillary [facility] 1.84.114 350.1.13.10 4.2.7.2.686 [id number] [facility] 2022-03-21 10:44:38 2022-03-21 23:59:00 Outpatient MARTA MAHONEY [facility] [id number] [facility] 2022-03-21 11:00:00 2022-03-21 11:26:31 [facility] 1.84.114 350.1.13.10 4.2.7.2.686 [id number] [facility] 2022-03-21 00:00:00 2022-03-21 00:00:00 Orders Only Doctor Unassigned, Haslet [facility] 1..114 350.1.13.10 4.2.7.2.686 [id number] [facility] 2021-09-18 01:20:00 2021-09-18 01:20:00 Outpatient BELEN Melo [facility] [id number] [facility] 2021-09-01 10:15:00 2021-09-01 10:30:00 Lactation Specialist Visit 1, Adc Lab Josefchris Prashanth [facility] 1.114 350.1.13.10 4.2.7.2.686 [id number] [facility] 2021-09-01 10:15:00 2021-09-01 10:15:00 Outpatient Yohana [facility] [id number] [facility] 2021-09-01 00:00:00 2021-09-01 00:00:00 Orders Only Doctor Unassigned, Haslet [facility] 1.114 350.1.13.10 4.2.7.2.686 [id number] [facility] 2021-08-21 12:58:00 2021-08-21 12:58:00 Outpatient BELEN Melo [facility] [id number] [facility] 2021-08-04 15:15:00 2021-08-04 15:30:00 Laboratory Only Only, Adc Test Maco Abdi [facility] 1.114 350.1.13.10 4.2.7.2.686 [id number] [facility] 2021-08-04 15:15:00 2021-08-04 15:15:00 Outpatient MACO SEN [facility] [id number] [facility] 2021-08-04 00:00:00 2021-08-04 00:00:00 Orders Only Doctor Unassigned, Haslet [facility] 1.114 350.1.13.10 4.2.7.2.686 [id number] [facility] 2021-07-24 01:10:00 2021-07-24 01:10:00 Outpatient GC_CHANTALE Melo [facility] PRIV [id number] [facility] 2021-06-22 11:11:00 2021-06-22 11:11:00 Outpatient GCTORRESPRDeuce Melo [facility] PRIV [id number] [facility] 2021-06-21 10:38:00 2021-06-21 10:38:00 Outpatient GCTORRESPRDeuce Melo [facility] [id number] [facility] 2021-06-07 08:40:00 2021-06-07 09:20:00 Ancillary Visit Yoselin Francisco Craig L [facility] 1.2.840.114 350.1.13.10 4.2.7.2.686 [id number] [facility] 2021-06-07 08:40:00 2021-06-07 08:40:00 Outpatient MARTA MAHONEY [facility] [id number] [facility] 2021-06-02 08:00:00 2021-06-02 08:40:00 Ancillary Visit Yoselin Francisco Craig L [facility] 1.2.840.114 350.1.13.10 4.2.7.2.686 [id number] [facility] 2021-06-01 08:00:00 2021-06-01 10:11:08 Ancillary Visit Kimberly Mcgovern Craig L [facility] 1.2.840.114 350.1.13.10 4.2.7.2.686 [id number] [facility] 2021-05-26 08:00:00 2021-05-26 08:40:00 Ancillary [facility]elin [facility] 1.2.840.114 350.1.13.10 4.2.7.2.686 [id number] [facility] 2021-05-19 09:00:00 2021-05-19 13:36:59 Outpatient R MARTA JOHNSON [facility] [id number] [facility] 2021-05-19 09:00:00 2021-05-19 13:36:59 Ancillary Visit [facility]oselin Francisco [facility] 1.2840.114 350.1.13.10 4.2.7.2.686 [id number] [facility] 2021 08:24:27 2021 09:04:27 Ancillary Visit Yoselin Francisco Craig L [facility] BUILDING 1.2.840.114 350.1.13.10 4.2.7.2.686 [id number] [facility] 2021-05-12 09:07:45 2021-05-12 09:47:45 Ancillary Visit Maki Lewis [facility] 1.2.840.114 350.1.13.10 4.2.7.2.686 [id number] [facility] 2021-05-10 08:14:36 2021-05-10 09:10:52 Ancillary Visit Yoselin Francisco Craig L [facility] NAL BUILDING 1.2.840.114 350.1.13.10 4.2.7.2.686 [id number] [facility] 2021-05-04 09:00:17 2021-05-04 09:40:17 Ancillary Visit Yoselin Francisco Craig L [facility] NAL BUILDING 1.2.840.114 350.1.13.10 4.2.7.2.686 [id number] [facility] 2021-05-02 09:20:00 2021-05-02 10:49:18 Outpatient R MARTA JOHNSON [facility] [id number] [facility] 2021-05-02 08:55:20 2021-05-02 10:49:18 Ancillary Visit Kimberly Mcgovern Craig L [facility] BUILDING 1.2.840.114 350.1.13.10 4.2.7.2.686 [id number] [facility] 2021-04-27 10:25:37 2021-04-27 11:05:37 Ancillary Visit Maki Lewis Craig L [facility] BUILDING 1.2.840.114 350.1.13.10 4.2.7.2.686 [id number] [facility] 2021-04-26 11:21:18 2021-04-26 12:01:18 Ancillary Visit Yoselin Francisco Craig L [facility] BUILDING 1.2.840.114 350.1.13.10 4.2.7.2.686 [id number] [facility] 2021-04-20 08:55:10 2021-04-20 09:35:10 Ancillary Visit Yoselin Francisco Craig L [facility] BUILDING 1.2.840.114 350.1.13.10 4.2.7.2.686 [id number] [facility] 2021-04-13 09:00:14 2021-04-13 09:40:14 Ancillary Visit Yoselin Francisco Craig L [facility] BUILDING 1.2.840.114 350.1.13.10 4.2.7.2.686 [id number] [facility] 2021-04-11 08:56:10 2021-04-11 16:47:24 Ancillary Visit Sandra Thompson [facility] 1.2.840.114 350.1.13.10 4.2.7.2.686 [id number] [facility] 2021-04-08 08:59:21 2021-04-08 09:39:21 Ancillary Visit Lucia Laws [facility] 1.2.840.114 350.1.13.10 4.2.7.2.686 [id number] [facility] 2021-04-06 09:04:55 2021-04-06 09:44:55 Ancillary Visit Yoselin Francisco Craig L [facility] BUILDING 1.2.840.114 350.1.13.10 4.2.7.2.686 [id number] [facility] 2021-04-04 10:12:57 2021-04-04 10:52:57 Ancillary Visit Lucia Laws [facility] 1.2.840.114 350.1.13.10 4.2.7.2.686 [id number] [facility] 2021-04-01 13:40:00 2021-04-01 14:26:09 Outpatient R MARTA JOHNSON [facility] [id number] [facility] 2021-04-01 13:24:12 2021-04-01 14:26:09 Ancillary Visit Yoselin Francisco Craig L [facility] BUILDING 1.2.840.114 350.1.13.10 4.2.7.2.686 [id number] [facility] 2021-03-29 09:07:25 2021-03-29 09:47:25 Ancillary [facility] 1.20.114 350.1.13.10 4.2.7.2.686 [id number] [facility] 2021-03-25 10:25:00 2021-03-25 23:59:00 Hospital En[facility] Medical [facility] Building 1.2.114 350.1.13.10 4.2.7.2.686 [id number] [facility] 2021-03-25 10:45:00 2021-03-25 10:45:00 Outpatient R ARLEY DELGADILLO [facility] [id number] [facility] 2021-03-25 10:10:35 2021-03-25 10:25:35 Office Visit Arley Delgadillo [facility] 1.114 350.1.13.10 4.2.7.2.686 [id number] [facility] 2021-03-17 13:26:55 2021-03-17 15:19:10 Ancillary Visit Sandra Thompson Craig L [facility] Building 1.2.114 350.1.13.10 4.2.7.2.686 [id number] [facility] 2021-03-15 13:35:10 2021-03-15 14:15:10 Ancillary Visit Sandra Thompson Craig L [facility] Building 1.2.114 350.1.13.10 4.2.7.2.686 [id number] [facility] 2021-03-10 13:32:20 2021-03-10 14:12:20 Ancillary Visit Viki [facility] 1.2.840.114 350.1.13.10 4.2.7.2.686 [id number] [facility] 2021-03-08 13:38:07 2021-03-08 14:18:07 Ancillary Visit [facility] 1.2.840.114 350.1.13.10 4.2.7.2.686 [id number] [facility] 2021-03-08 00:00:00 2021-03-08 00:00:00 Transition of Care Jacquie Smiental 1.2.840.114 350.1.13.10 4.2.7.2.686 [id number] [facility] 2021-03-07 00:00:00 2021-03-07 00:00:00 Telephone Val Turner [facility] Medical Office Building 1.2.840.114 350.1.13.10 4.2.7.2.686 [id number] [facility] 2021-03-07 00:00:00 2021-03-07 00:00:00 Patient Secure Msg Doctor Unassigned, Haslet [facility] 1.2.840.114 350.1.13.10 4.2.7.2.686 [id number] [facility] 2021-03-04 09:31:00 2021-03-06 12:57:00 Hospital Encounter Grant Haskins Jelani [facility] 1.2.840.114 350.1.13.10 4.2.7.2.686 [id number] [facility] 2021-03-01 14:25:13 2021-03-01 15:05:13 Ancillary Visit Viki Willett Craig L [facility] Building 1.284.114 350.1.13.10 4.2.7.2.686 [id number] [facility] 2021-03-01 00:00:00 2021-03-01 00:00:00 Orders Only Doctor Unassigned, Haslet [facility] 1.84.114 350.1.13.10 4.2.7.2.686 [id number] [facility] 2021-02-24 10:19:44 2021-02-24 10:34:44 Office Visit Arley Delgadillo [facility]?Ben rodriguez Medical Office Building 1.84.114 350.1.13.10 4.2.7.2.686 [id number] [facility] 2021-02-24 10:30:00 2021-02-24 10:30:00 Outpatient ARLEY DEL CID [facility] [id number] [facility] 2021-02-22 13:03:21 2021-02-22 14:22:13 Ancillary Visit Yoselin Francisco Craig L [facility] Building 1..840.114 350.1.13.10 4.2.7.2.686 [id number] [facility] 2021-02-13 13:21:00 2021-02-13 13:40:00 Emergency Светлана Wallace [facility] [id number] [id number] [facility] 2021-02-10 15:50:00 2021-02-10 15:50:00 Outpatient [facility] [id number] [facility] 2021-02-10 14:30:28 2021-02-10 14:30:37 Imm/Inj Visit Nurse, Go [facility] Building 1.2840.114 350.1.13.10 4.2.7.2.686 [id number] [facility] 2021-02-10 13:41:23 2021-02-10 14:21:23 Ancillary Visit Maki Lewis Craig L [facility] [place] Building 1.2840.114 350.1.13.10 4.2.7.2.686 [id number] [facility] 2021-02-09 13:04:52 2021-02-09 13:44:52 Ancillary Visit Maki Lewis Craig L [facility] [place] Building 1.2840.114 350.1.13.10 4.2.7.2.686 [id number] [facility] 2021-02-03 13:41:56 2021-02-03 14:24:39 Ancillary Visit Yoselin Francisco Craig L [facility] [place] Building 1.2.840.114 350.1.13.10 4.2.7.2.686 [id number] [facility] 2021-02-03 13:40:00 2021-02-03 13:40:00 Outpatient [facility] [id number] [facility] 2021-02-01 14:12:47 2021-02-01 14:52:47 Ancillary Visit Maki Lewis Craig L [facility] [place] Building 1.2.840.114 350.1.13.10 4.2.7.2.686 [id number] [facility] 2021-01-27 12:58:46 2021-01-27 13:42:22 Ancillary Visit [place] jer[place]her Marta Johnson [facility] 1..840.114 350.1.13.10 4.2.7.2.686 [id number] [facility] 2021-01-27 13:00:00 2021-01-27 13:00:00 Outpatient R MARTA JOHNSON [facility] [id number] [facility] 2021-01-24 13:45:00 2021-01-24 13:45:00 Outpatient R MARTA JOHNSON [facility] [id number] [facility] 2021-01-10 13:54:40 2021-01-10 23:59:00 Hospital Encounter Elizabeth Marta Flores [facility] 1..840.114 350.1.13.10 4.2.7.2.686 [id number] [facility] 2021-01-10 14:27:04 2021-01-10 15:14:37 Office Visit Marta Johnson [facility] Surgical Special w[place] 1..840.114 350.1.13.10 4.2.7.2.686 [id number] [facility] 2021-01-10 14:45:00 2021-01-10 14:45:00 Outpatient R MARTA JOHNSON [facility] [id number] [facility] 2021-01-10 00:00:00 2021-01-10 00:00:00 Telephone Marta Johnson [facility] 1..840.114 350.1.13.10 4.2.7.2.686 [id number] [facility] 2021-01-10 00:00:00 2021-01-10 00:00:00 Orders Only Doctor Unassigned, Haslet [facility] 1.2.840.114 350.1.13.10 4.2.7.2.686 [id number] [facility] 2020-12-31 00:00:00 2020-12-31 00:00:00 Transition of Care Jacquie Simental 1.2.840.114 350.1.13.10 4.2.7.2.686 [id number] [facility] 2020-12-27 06:41:00 2020-12-30 15:15:00 Hospital Encounter Marta Johnson Brett S [facility] 1.2840.114 350.1.13.10 4.2.7.2.686 [id number] [facility] 2020-12-27 07:30:00 2020-12-27 10:23:00 Surgery Marta Johnson [facility] Surgical [place] 1.2840.114 350.1.13.10 4.2.7.2.686 [id number] [facility] 2020-12-27 00:00:00 2020-12-27 00:00:00 Orders Only Doctor Unassigned, Haslet [facility] 1.2840.114 350.1.13.10 4.2.7.2.686 [id number] [facility] 2020-12-24 09:29:32 2020-12-24 23:59:00 Hospital Encounter Marta Johnson [facility] 1.2840.114 350.1.13.10 4.2.7.2.686 [id number] [facility] 2020-12-24 09:28:46 2020-12-24 09:43:46 Lactation Specialist Visit Pob, Adc Lab Main Marta Johnson [facility] Professio [facility] 1.2840.114 350.1.13.10 4.2.7.2.686 [id number] [facility] 2020-12-24 08:45:00 2020-12-24 08:45:00 Outpatient R MARTA JOHNSON [facility] [id number] [facility] 2020-12-23 13:00:00 2020-12-23 13:00:00 Outpatient R MARTA JOHNSON [facility] [id number] [facility] 2020-12-22 09:45:00 2020-12-22 09:45:00 Outpatient R MARTA JOHNSON [facility] [id number] [facility] 2020-12-22 09:28:20 2020-12-22 09:43:20 Lactation Specialist Visit Pob, Adc Lab Main Marta Johnson [facility] 1.84.114 350.1.13.10 4.2.7.2.686 [id number] [facility] 2020-12-22 00:00:00 2020-12-22 00:00:00 Orders Only Doctor Unassigned, Haslet [facility] 1..114 350.1.13.10 4.2.7.2.686 [id number] [facility] 2020-12-20 00:00:00 2020-12-20 00:00:00 Prep For Surgery Marta Johnson [facility] Surgical Special w[facility] [place] 1.84.114 350.1.13.10 4.2.7.2.686 [id number] [facility] 2020-12-16 13:40:52 2020-12-16 13:55:52 Office Visit Arley Delgadillo [facility] 1.284.114 350.1.13.10 4.2.7.2.686 [id number] [facility] 2020-12-16 13:45:00 2020-12-16 13:45:00 Outpatient ARLEY DEL CID [facility] [id number] [facility] 2020-12-16 13:45:00 2020-12-16 13:45:00 Outpatient ARLEY DEL CID [facility] [id number] [facility] 2020-11-22 16:15:00 2020-11-22 16:15:00 Outpatient MARTA MAHONEY [facility] [id number] [facility] 2020-11-22 15:17:32 2020-11-22 15:56:16 Office Visit ElizabethMarta Mark [facility] 1.2.840.114 350.1.13.10 4.2.7.2.686 [id number] [facility] 2020-09-16 11:38:00 2020-09-16 11:38:00 Outpatient [facility] [id number] [facility] 2020-09-14 01:43:00 2020-09-14 01:43:00 Outpatient [facility] [id number] [facility] 2020-09-14 00:00:00 2020-09-14 00:00:00 Tootie carreno MD: [address] [place] [address], [address], [place] [address] , Ph. [facility] _[place] Office [id number] [facility] 2020-09-14 00:00:00 2020-09-14 00:00:00 Outpatient Tootie Buenrostro [facility] [id number] 2020-08-31 09:45:50 2020-08-31 10:00:50 Office Visit Arley Delgadillo [facility] Surgical Specialti [place] 1.2.840.114 350.1.13.10 4.2.7.2.686 [id number] [facility] 2020-08-31 10:00:00 2020-08-31 10:00:00 Outpatient ARLEY DEL CID [facility] [id number] [facility] 2020-08-16 13:36:09 2020-08-16 14:33:13 Office Visit Marta Johnson [facility] Surgical Special w[facility] [place] 1.2840.114 350.1.13.10 4.2.7.2.686 [id number] [facility] 2020-08-16 14:00:00 2020-08-16 14:00:00 Outpatient R MARTA JOHNSON [facility] [id number] [facility] 2020-08-16 00:00:00 2020-08-16 00:00:00 Telephone [facility] 1.2840.114 350.1.13.10 4.2.7.2.686 [id number] [facility] 2020-08-13 00:00:00 2020-08-13 00:00:00 Telephone JohnsonMarta randall [facility] Surgical [facility] wai [place] 1.2840.114 350.1.13.10 4.2.7.2.686 [id number] [facility] 2020-08-12 16:16:00 2020-08-12 18:33:00 Emergency Adwoa Marrero [facility] 1.2840.114 350.1.13.10 4.2.7.2.686 [id number] [facility] 2020-08-12 00:00:00 2020-08-12 00:00:00 Orders Only Doctor Unassigned, Haslet [facility] 1.2840.114 350.1.13.10 4.2.7.2.686 [id number] [facility] 2020-06-02 13:10:39 2020-06-02 13:46:45 Office Visit Marta Johnson [facility] Surgical Specialti w[facility] [place] 1.2.840.114 350.1.13.10 4.2.7.2.686 [id number] [facility] 2020-06-02 13:30:00 2020-06-02 13:30:00 Outpatient R MARTA JOHNSON [facility] [id number] [facility] 2020-06-01 14:21:09 2020-06-01 23:59:00 Outpatient R MARTA JOHNSON [facility] [id number] [facility] 2020-06-01 14:21:09 2020-06-01 23:59:00 Hospital Encounter Marta Johnson [facility] 1.2840.114 350.1.13.10 4.2.7.2.686 [id number] [facility] 2020-05-07 08:18:47 2020-05-07 09:19:17 Office Visit Marta Johnson [facility] [place] 1.2840.114 350.1.13.10 4.2.7.2.686 [id number] [facility] 2020-05-07 08:30:00 2020-05-07 08:30:00 Outpatient R MARTA JOHNSON [facility] [id number] [facility] 2020-05-07 00:00:00 2020-05-07 00:00:00 Telephone Marta Johnson [facility] Surgical Specialti es [place] 1.2.840.114 350.1.13.10 4.2.7.2.686 [id number] [facility] 2020-03-25 00:00:00 2020-03-25 00:00:00 Telephone Arley Delgadillo [facility] Surgical Specialti es [place] 1.2.840.114 350.1.13.10 4.2.7.2.686 [id number] [facility] 2020-03-15 16:00:00 2020-03-15 16:00:00 Outpatient R ELIZABETH MARTA [facility] [id number] [facility] 2020-03-15 15:44:53 2020-03-15 15:59:53 Office Visit Arley Delgadillo Marta Johnson [facility] Surgical Specialti w[place] 1.2.840.114 350.1.13.10 4.2.7.2.686 [id number] [facility] 2020-02-26 14:09:46 2020-02-26 23:59:00 Hospital Encounter Marta Johnson [facility] Surgical Special w[facility] [place] 1.2.840.114 350.1.13.10 4.2.7.2.686 [id number] [facility] 2020-02-26 13:13:37 2020-02-26 15:25:31 Office Visit Marta Johnson [facility] Surgical Special w[facility] [place] 1.2.840.114 350.1.13.10 4.2.7.2.686 [id number] [facility] 2020-02-26 13:30:00 2020-02-26 13:30:00 Outpatient R ELIZABETH MARTA [facility] [id number] [facility] 2020-02-26 00:00:00 2020-02-26 00:00:00 Orders Only Doctor Unassigned, Haslet [facility] 1.2.840.114 350.1.13.10 4.2.7.2.686 [id number] [facility] 2019-08-13 13:40:00 2019-08-13 13:40:00 Outpatient R MARTA JOHNSON [facility] [id number] [facility] 2019-07-17 14:12:49 2019-08-12 16:34:23 Ancillary Visit Yoselin Francisco [facility] 1.2.840.114 350.1.13.10 4.2.7.2.686 [id number] 2019-07-17 14:12:49 2019-08-12 16:34:23 Ancillary Visit Nolan Marta Hanson [facility] 1.2.840.114 350.1.13.10 4.2.7.2.686 [id number] [facility] 2019-07-29 13:00:00 2019-07-29 13:00:00 Outpatient R MARTA JOHNSON [facility] [id number] [facility] 2019-07-23 13:39:15 2019-07-23 14:19:15 Ancillary Visit Yoselin Francisco Craig L [facility] 1.2.840.114 350.1.13.10 4.2.7.2.686 [id number] [facility] 2019-07-21 15:36:27 2019-07-21 16:19:42 Office Visit Marta Johnson [facility] Surgical [facility] 1.2.840.114 350.1.13.10 4.2.7.2.686 [id number] [facility] 2019-07-15 14:12:07 2019-07-15 14:52:07 Ancillary Visit Yoselin Francisco Craig L [facility] 1.2.840.114 350.1.13.10 4.2.7.2.686 [id number] [facility] 2019-07-10 13:01:35 2019-07-10 13:41:35 Ancillary Visit Yoselin Francisco Craig L [facility] 1.2.840.114 350.1.13.10 4.2.7.2.686 [id number] [facility] 2019-07-08 15:31:30 2019-07-08 16:33:27 Ancillary Visit Jose Francisco Craig L [facility] 1.2.840.114 350.1.13.10 4.2.7.2.686 [id number] [facility] 2019-07-03 13:04:32 2019-07-03 13:49:32 Ancillary Visit Yoselin Francisco Craig L [facility] 1.2.840.114 350.1.13.10 4.2.7.2.686 [id number] [facility] 2019-06-19 13:53:57 2019-06-19 14:38:57 Ancillary Visit Yoselin Francisco Craig L [facility] 1.2.840.114 350.1.13.10 4.2.7.2.686 [id number] [facility] Results Test Description Test Time Test Comments Results Resul t Comments Source - XR FLUORO FOR SPINE INJ 2023-03-07 15:23:00 [facility] : 1935 Sex: F Patient Name: KD DIGGS Unit No: [id number] EXAMS: CPT CODE: [id number] XR FLUORO FOR SPINE INJ 04513 LUMBAR EPIRADICULAR INJECTION PREOPERATIVE DIAGNOSIS: Lumbar Radiculitis [...] Technologist: YASIR SPICER ARRT Transcribed D/ (1523) [facility] NAME: KD DIGGS [address] PHYS: Suman Santos MD [place], [place] [address] : 1935 AGE: 87 SEX: F LOC: MAEM PHONE #: [phone] EXAM DATE: 03/07/2023 STATUS: REG [facility] [place] FAX #: [phone] RAD #: D/C DT PAGE 1 Signed Report Patient Name: KD DIGGS Unit No: [id number] EXAMS: CPT CODE: [id number] XR FLUORO FOR SPINE INJ 02316 (Continued) Orig Print D/T: S: 03/07/2023 (1527) [facility] NAME: KD DIGGS [address] PHYS: Suman Santos MD [place], [place] [address] : 1935 AGE: 87 SEX: F LOC: MAME PHONE #: [phone] EXAM DATE: 03/07/2023 STATUS: REG [facility] FAX #: [phone] RAD #: D/C DT PAGE 2 Signed Report [id number] 14:32:00* Test Item Value Reference Range Interpretation Comme nts GLUBED (test code = GLUBED) 97 mg/dL 60-125 N - XR FLUORO FOR SPINE [id number] 09:07:00 [facility] 1935 Sex: F Patient Name: KD DIGGS Unit No: [id number] EXAMS: CPT CODE: [id number] XR FLUORO FOR SPINE INJ 63950REAXXX EPIRADICULAR INJECTION PREOPERATIVE DIAGNOSIS: Lumbar Radiculitis POSTOPERATIVE DIAGNOSIS: Same as above PROCEDURES PERFORMED: Fluoroscopically guided needle localization of the bilateral L4, L5, S1 spinal nerves with transforaminal epidurograms and epidural injection of local anesthetic andsteroid. FINDINGS: Preinjection VAS 8/10. Postinjection VAS 0/10. Steroid response pending follow-up. ESTIMATED BLOOD LOSS: Minimal ANESTHESIA: TIVA COMPLICATIONS: None DETAILS OF PROCEDURE: After obtaining stable vital signs, informed consent and IV access, with no contraindications, the patient wa s taken to the operating room and placed in a prone position with all extremities padded and appropriate monitors placed. The patient was sterilely prepped and draped over the lumbosacral spine. Using fluoroscopic visualization the insertion sites were marked for paravertebral approaches and using standard technique, a 25 gauge needle was advanced to the base of each pedicle without paresthesias.Isovue-300 contrast 0.2 mL of was injected at [...] 1 at 0907 Reported and signed by: KIMBERLY FARAH MD CC: Suman Harris MD Technologist: RENÉ DUMONT MRI Transcribed D/ (906) [facility] [place] NAME: KD DIGGS [address] PHYS: Suman Santos MD [place], [place] [address] : 1935 AGE: 87 SEX: F LOC: MAME PHONE #: [phone] EXAM DATE: 01/08/2023 STATUS: [place] [facility] [place] #: [phone] RAD #: D/C DT PAGE1 Signed Report Patient Name: KD DIGGS Unit No: [id number] EXAMS: CPT CODE: [id number] XR FLUORO FOR SPINE INJ [id number] (Continued) Orig Print D/T: S: 01/08/2023 (0910) [facility] NAME: KD DIGGS [address] PHYS: Suman Santos MD [place], [place] [address] : [birth year] AGE: 87 SEX: F LOC: MAME PHONE #: [phone] EXAM DATE: 01/08/2023 STATUS: REG [facility] [place] FAX #: [phone] RAD #: D/C DT PAGE 2 Signed [id number] 08:52:00* Test Item Value Reference Range Interpretation Comme nts GLUBED (test code = GLUBED) 111 mg/dL 60-125 N
[2023-05-09] MEDS ORDERED: NA CHLORIDE 0.9% 1,000 ML ONE ×2 (13:56→18:10)
[2023-05-09 14:27] LABS: Absolute Lymphocytes (CBC) 2.2 K/uL (0.7-4.9); Hematocrit 39.6 % (36.0-45.0); Lymphocytes % 18.6 % (15.3-44.8); MPV 7.8 fL (7.6-11.3); Platelets 194 thou/uL (152-406); RBC Red Blood Cell Count 4.17 M/uL (3.86-4.86)
[2023-05-09 14:34] LABS: Protime INR 1.11
--- NOTE | 2023-05-09 14:44 | RAD REPORT ---
EXAM DESCRIPTION: CT - [id number] - 05/09/2023 2:33 pm CLINICAL HISTORY: Trauma, head and neck injury. TRAUMA COMPARISON: Head C Spine Mpr Wo Con dated 08/18/2020 TECHNIQUE: Axial 5 mm thick images of the head were obtained. Axial 2 mm thick images of the cervical spine were obtained with sagittal and coronal reconstruction images generated and reviewed. All CT scans are performed using dose optimization technique as appropriate and may include automated exposure control or mA/KV adjustment according to patient size. FINDINGS: CT HEAD WITHOUT CONTRAST: No acute hemorrhage, hydrocephalus or extra-axial collection is identified.Mild generalized brain atr ophy is present with mild periventricular and deep white matter chronic microvascular ischemic change s.No areas of brain edema or midline shift. The paranasal sinuses and mastoids are clear except for a small amount of sphenoid sinus mucous.The c alvarium is intact. CT CERVICAL SPINE WITHOUT CONTRAST: No fracture or subluxation.Moderate lower cervical degenerative changes.No prevertebral soft tissues swelling is identified. IMPRESSION: No acute intracranial or cervical spine findings.Moderate lower cervical degenerative ch anges.
[2023-05-09 14:53] LABS: Albumin 2.9 g/dL (3.4-5.0); Bilirubin Total 0.7 mg/dL (0.2-1.0); Magnesium 1.7 mg/dL (1.6-2.4); Protein, Total 6.8 g/dL (6.4-8.2); Troponin High Sensitivity 50.8 pg/mL (<58.9)
[2023-05-09 15:06] LABS: Thyroid Stimulating Hormone 3.82 uIU/mL (0.358-3.740)
--- NOTE | 2023-05-09 16:13 | EDPHYS ---
Physician Documentation [facility] Name: Yady Diggs Age: 87 yrs Sex: Female : 1935 Arrival Date: 05/09/2023 Time: 13:14 Bed 14 Private MD: ED Physician Lalo Sterling HPI: 05/09 17:09 This 87 yrs old Female presents to ER via Wheelchair with complaints of rt Diarrhea, Syncope, Weakness. 17:09 Patient had a recent admission for a colitis. Patient subsequent left the hospital, rt profuse diarrhea. Member states that the patient has had multiple syncopal episodes today, the patient states that he feels dizzy, very weak. Denies other acute complaints at this time, symptoms are moderate severity, no other aggravating elevating factors.. Historical: - Allergies: 13:31 adhesive tape; db 13:31 Iodine; db 13:31 Morphine; db - Home Meds: 13:31 dorzolamide 2 % ophthalmic (eye) drops 1 drop twice a day [Active]; hydralazine 10 mg db Oral tab 2 times per day [Active]; 13:31 atorvastatin 20 mg Oral tab daily [Active]; latanoprost 0.005 % ophthalmic (eye) drops db 1 drop every evening [Active]; amitriptyline 10 mg Oral tab 1 tab every day at bedtime [Active]; gabapentin 600 mg Oral tab 1 tab 3 times per day [Active]; carvedilol 6.25 mg Oral tab 2 times per day [Active]; primidone 50 mg Oral tab 0.5 tab every day at bedtime [Active]; levothyroxine 25 mcg capsule daily [Active]; - PMHx: 13:31 diabetes mellitus; GERD; Hypothyroidism; Glaucoma; High Cholesterol; Hypertension; db neuropathy; - PSHx: 13:31 Appendectomy; Cholecystectomy; section; hysterectomy; Tonsillectomy; db - Immunization history:: Adult Immunizations unknown. - Social history:: Smoking status: Patient denies any tobacco usage or history of. ROS: 17:09 Constitutional: Negative for fever, chills, and weight loss, Cardiovascular: Negative rt for chest pain, palpitations, and edema, Respiratory: Negative for shortness of breath, cough, wheezing, and pleuritic chest pain, MS/Extremity: Negative for injury and deformity, 17:09 Abdomen/GI: Positive for diarrhea, Negative for abdominal pain, 17:09 Neuro: Positive for syncope, Negative for altered mental status, Exam: 17:09 Constitutional: This is a well developed, well nourished patient who is awake, alert, rt and in no acute distress. Head/Face: Normocephalic, atraumatic. Chest/axilla: Normal chest wall appearance and motion. Nontender with no deformity. No lesions are appreciated. Cardiovascular: Regular rate and rhythm with a normal S1 and S2. No gallops, murmurs, or rubs. Normal PMI, no JVD. No pulse deficits. Respiratory: Lungs have equal breath sounds bilaterally, clear to auscultation and percussion. No rales, rhonchi or wheezes noted. No increased work of breathing, no retractions or nasal flaring. Abdomen/GI: Soft, non-tender, with normal bowel sounds. No distension or tympany. No guarding or rebound. No evidence of tenderness throughout. Skin: Warm, dry with normal turgor. Normal color with no rashes, no lesions, and no evidence of cellulitis. MS/ Extremity: Pulses equal, no cyanosis. Neurovascular intact. Full, normal range of motion. Neuro: Awake and alert, GCS 15, oriented to person, place, time, and situation. Cranial nerves II-XII grossly intact. Motor strength 5/5 in all extremities. Sensory grossly intact. Cerebellar exam normal. Normal gait. Psych: Awake, alert, with orientation to person, place and time. Behavior, mood, and affect are within normal limits. 17:09 ECG was reviewed by the Attending Physician. 17:09 ECG was reviewed by the Attending Physician. rt Vital Signs: 13:21 BP 131 / 79; Pulse 138; Resp 20; Temp 99.4; Pulse Ox 99% ; Weight 54.43 kg; Height 5 db ft. 1 in. ; 14:05 BP 123 / 80; Pulse 105; Resp 16 S; Pulse Ox 100% on R/A; kc6 14:38 BP 142 / 79; Pulse 97; Resp 16 S; Pulse Ox 100% on R/A; kc6 15:41 BP 173 / 86; Pulse 84; Resp 14 S; Pulse Ox 99% on R/A; ll1 16:14 BP 170 / 84; Pulse 86; Resp 14 S; Pulse Ox 100% on R/A; kc6 19:00 BP 137 / 97; Pulse 178; Resp 19; Pulse Ox 100% on R/A; lg3 13:21 Body Mass Index 22.67 (54.43 kg, 154.94 cm) db MDM: 13:29 Patient medically screened. rt 17:15 Differential diagnosis: A-fib, dehydration, colitis, sepsis. Data reviewed: vital rt signs, nurses notes, lab test result(s), EKG. Consideration of Admission/Observation Patient was admitted/placed on observation. Management of patient was discussed with the following: Primary Care Provider: Agrees to admit patient. I considered the following discharge prescriptions or medication management in the emergency department Medications were administered in the Emergency Department. See MAR. Independent interpretation of the following test(s) in the Emergency Department X-Ray: My interpretation is No pneumonia seen on interpretation of x-ray. Test considered but Not performed: CT: Patient with recent CT scan, no worsening abdominal pain, do not believe that repeat imaging is indicated. Care significantly affected by the following chronic conditions: Diabetes. Counseling: I had a detailed discussion with the patient and/or guardian regarding the historical points, exam findings, and any diagnostic results supporting the discharge/admit diagnosis, lab results, radiology results, the need for further work-up and treatment in the hospital. Response to treatment: the patient's symptoms have markedly improved after treatment. 05/09 13:39 Order name: Blood Culture Adult (2) rt 05/09 13:39 Order name: CBC with Diff; Complete Time: 14:47 rt 12 13:39 Order name: CMP; Complete Time: 15:27 rt 12 13:39 Order name: Lactate w/ 2H reflex if indic.; Complete Time: 14:47 rt 12 13:39 Order name: Protime (+inr); Complete Time: 14:47 rt 12 13:39 Order name: Ptt, Activated; Complete Time: 14:47 rt 12 13:39 Order name: TSH; Complete Time: 15:27 rt 12 13:39 Order name: Magnesium; Complete Time: 15:27 rt 12 13:39 Order name: Troponin High Sensitivity; Complete Time: 15:27 rt 12 13:39 Order name: CPK; Complete Time: 15:27 rt 12 15:08 Order name: T4 Free; Complete Time: 15:27 EDMS 05/09 13:39 Order name: CT Head C Spine; Complete Time: 14:47 rt 05/09 13:39 Order name: EKG; Complete Time: 14:18 rt 05/09 16:19 Order name: CONS Physician Consult EDMS 05/09 13:39 Order name: Accucheck; Complete Time: 14:02 rt 05/09 13:39 Order name: Cardiac monitoring; Complete Time: 13:40 rt 05/09 13:39 Order name: EKG - Nurse/Tech; Complete Time: 13:40 rt 05/09 13:39 Order name: IV Saline Lock - Large Bore; Complete Time: 14:02 rt 05/09 13:39 Order name: Labs collected and sent; Complete Time: 14:02 rt 05/09 13:39 Order name: O2 Per Protocol; Complete Time: 13:40 rt 05/09 13:39 Order name: O2 Sat Monitoring; Complete Time: 13:40 rt 05/09 13:39 Order name: Vital Signs; Complete Time: 13:40 rt EC:09 Rate is 123 beats/min. Rhythm is irregularly irregular, A fib with Bifascicular block. rt QRS interval is normal. QT interval is normal. No Q waves. 17:09 Rate is 164 beats/min. Rhythm is regular, A fib with No ectopy, Bifascicular block. QRS rt interval is normal. QT interval is normal. No Q waves. Administered Medications: 14:02 Drug: NS 0.9% IV 1000 ml IV at 1000 ml once Route: IV; Rate: 1000 ml; Site: right kc6 forearm; 16:14 Follow up: Response: No adverse reaction; IV Status: Completed infusion; IV Intake: kc6 1000ml Disposition Summary: 05/09/23 16:12 Hospitalization Ordered Notes: Hospitalization Status: Observation rt Provider: Tunde Pena rt Condition: Stable rt Problem: new rt Symptoms: have improved rt Bed/Room Type: Standard rt Location: Intensive Care Unit(05/09/23 19:53) rv1 Room Assignment: 3-(05/09/23 19:53) rv1 Diagnosis - Atrial fibrillation with rapid ventricular rate rt - Syncope rt Forms: - Medication Reconciliation Form rt - SBAR form rt - Leadership Thank You Letter rt Signatures: Dispatcher [employer] EDMS Dirrim, Magalys bd Jenkins, Hemalatha, RN RN kc6 Jaky Miller RN RN db Lalo Sterling MD MD rt Olimpia Couch rv1 Corrections: (The following items were deleted from the chart) 17:13 16:12 Telemetry/MedSurg (observation) rt bd 17:13 16:12 rt bd 18:21 17:13 [facility] ER HOLD bd bd 18:21 17:13 ERHOLD- bd bd 19:07 18:21 204 bd rv1 19:53 18:21 Telemetry/MedSurg (observation) bd rv1 19:53 19:07 rv1 rv1
--- NOTE | 2023-05-09 16:13 | ER ---
Nurse's Notes [facility] Name: Yady Diggs Age: 87 yrs Sex: Female : 1935 Arrival Date: 05/09/2023 Time: 13:14 Bed 14 Private MD: Diagnosis: Atrial fibrillation with rapid ventricular rate;Syncope Presentation: 05/09 13:20 Chief complaint: Patient states: SYNCOPAL EPISODE PRIOR TO ARRIVAL HIT HEAD ON COUNTER db WHEN FELL. HAS BEEN FEELING WEAK. HAS BACK AND HEAD PAIN. REPORTS DIARRHEA AND RECENT ADMISSION FOR DIVERTICULITIS. 13:20 Method Of Arrival: Wheelchair db 13:20 Coronavirus screen: Vaccine status: Patient reports receiving the 2nd dose of the covid db vaccine. Client denies travel out of the [place] in the last 14 days. At this time, the client does not indicate any symptoms associated with coronavirus-19. Ebola Screen: Patient negative for fever greater than or equal to 101.5 degrees Fahrenheit, and additional compatible Ebola Virus Disease symptoms Patient denies exposure to infectious person. Patient denies travel to an Ebola-affected area in the 21 days before illness onset. No symptoms or risks identified at this time. Initial Sepsis Screen: Does the patient meet any 2 criteria? HR > 90 bpm. Does the patient have a suspected source of infection? No. Patient's initial sepsis screen is negative. Risk Assessment: Do you want to hurt yourself or someone else? Patient reports no desire to harm self or others. Onset of symptoms was May 09, 2023. 13:20 Acuity: NILAY 2 db Triage Assessment: 13:31 General: Appears distressed, uncomfortable, Behavior is cooperative, anxious. Pain: db Complains of pain in back. Neuro: Level of Consciousness is awake, alert, obeys commands, Oriented to person, place, time, situation. Respiratory: Airway is patent Respiratory effort is even, unlabored, Respiratory pattern is regular, symmetrical. GI: Reports diarrhea. Historical: - Allergies: 13:31 adhesive tape; db 13:31 Iodine; db 13:31 Morphine; db - Home Meds: 13:31 dorzolamide 2 % ophthalmic (eye) drops 1 drop twice a day [Active]; hydralazine 10 mg db Oral tab 2 times per day [Active]; 13:31 atorvastatin 20 mg Oral tab daily [Active]; latanoprost 0.005 % ophthalmic (eye) drops db 1 drop every evening [Active]; amitriptyline 10 mg Oral tab 1 tab every day at bedtime [Active]; gabapentin 600 mg Oral tab 1 tab 3 times per day [Active]; carvedilol 6.25 mg Oral tab 2 times per day [Active]; primidone 50 mg Oral tab 0.5 tab every day at bedtime [Active]; levothyroxine 25 mcg capsule daily [Active]; - PMHx: 13:31 diabetes mellitus; GERD; Hypothyroidism; Glaucoma; High Cholesterol; Hypertension; db neuropathy; - PSHx: 13:31 Appendectomy; Cholecystectomy; section; hysterectomy; Tonsillectomy; db - Immunization history:: Adult Immunizations unknown. - Social history:: Smoking status: Patient denies any tobacco usage or history of. Screenin:03 [facility] ED Fall Risk Assessment (Adult) History of falling in the last 3 months, kc6 including since admission Yes- physiologic fall (2 pts) Confusion or Disorientation No (0 pts) Intoxicated or Sedated No (0 pts) Impaired Gait No (0 pts) Mobility Assist Device Used No (0 pt) Altered Elimination No (0 pt) Score/Fall Risk Level 0 - 2 = Low Risk. Abuse screen: Denies threats or abuse. Denies injuries from another. Nutritional screening: No deficits noted. Tuberculosis screening: No symptoms or risk factors identified. Assessment: 14:04 General: Appears in no apparent distress. comfortable, Behavior is calm, cooperative, kc6 appropriate for age. Pain: Denies pain. Neuro: Level of Consciousness is awake, alert, obeys commands, Oriented to person, place, time, situation, Appropriate for age Reports dizziness, a syncopal episode weakness. Cardiovascular: Denies chest pain, Heart tones S1 S2 present Capillary refill < 3 seconds Rhythm is sinus tachycardia. Respiratory: Reports shortness of breath Airway is patent Trachea midline Respiratory effort is even, unlabored, Respiratory pattern is regular, symmetrical. GI: Reports diarrhea, Patient currently denies nausea, vomiting. : No signs and/or symptoms were reported regarding the genitourinary system. EENT: No signs and/or symptoms were reported regarding the EENT system. Derm: No signs and/or symptoms reported regarding the dermatologic system. Skin is intact, is healthy with good turgor, Skin is pink, warm \T\ dry. Musculoskeletal: No signs and/or symptoms reported regarding the musculoskeletal system. Circulation, motion, and sensation intact. Capillary refill < 3 seconds, Range of motion: intact in all extremities. 15:04 Reassessment: Patient appears in no apparent distress at this time. No changes from ll1 previously documented assessment. Patient and/or family updated on plan of care and expected duration. Pain level reassessed. Patient is alert, oriented x 3, equal unlabored respirations, skin warm/dry/pink. 16:04 Reassessment: Patient appears in no apparent distress at this time. No changes from kc6 previously documented assessment. Patient and/or family updated on plan of care and expected duration. Pain level reassessed. Patient is alert, oriented x 3, equal unlabored respirations, skin warm/dry/pink. 18:30 Reassessment: attempted to call report to 2nd floor. charge nurse states she has not kc6 assigned the room to a nurse yet and asks we call back. Vital Signs: 13:21 BP 131 / 79; Pulse 138; Resp 20; Temp 99.4; Pulse Ox 99% ; Weight 54.43 kg; Height 5 db ft. 1 in. ; 14:05 BP 123 / 80; Pulse 105; Resp 16 S; Pulse Ox 100% on R/A; kc6 14:38 BP 142 / 79; Pulse 97; Resp 16 S; Pulse Ox 100% on R/A; kc6 15:41 BP 173 / 86; Pulse 84; Resp 14 S; Pulse Ox 99% on R/A; ll1 16:14 BP 170 / 84; Pulse 86; Resp 14 S; Pulse Ox 100% on R/A; kc6 19:00 BP 137 / 97; Pulse 178; Resp 19; Pulse Ox 100% on R/A; lg3 13:21 Body Mass Index 22.67 (54.43 kg, 154.94 cm) db ED Course: 13:19 Patient arrived in ED. rg4 13:19 Lalo Sterling MD is Attending Physician. rt 13:20 Arm band placed on Patient placed in an exam room. db 13:31 Triage completed. db 13:37 Hemalatha Jenkins, JAM is Primary Nurse. kc6 14:03 Patient has correct armband on for positive identification. Placed in gown. Bed in low kc6 position. Call light in reach. Side rails up X2. Adult w/ patient. Client placed on continuous cardiac and pulse oximetry monitoring. NIBP monitoring applied. quality assurance monitor chassis on. 14:03 Inserted saline lock: 24 gauge in right forearm, using aseptic technique. Inserted kc6 saline lock: 22 gauge in left wrist, using aseptic technique. Blood collected. Patient maintains SpO2 saturation greater than 95% on room air. 14:34 CT Head C Spine In Process Unspecified. EDMS 16:12 Tunde Pena MD is Hospitalizing Provider. rt 16:15 No provider procedures requiring assistance completed. Patient admitted, IV remains in kc6 place. 19:00 Report given to Sonja Azar RN. kc6 Administered Medications: 14:02 Drug: NS 0.9% IV 1000 ml IV at 1000 ml once Route: IV; Rate: 1000 ml; Site: right kc6 forearm; 16:14 Follow up: Response: No adverse reaction; IV Status: Completed infusion; IV Intake: kc6 1000ml Medication: 16:15 VIS not applicable for this client. kc6 Intake: 16:14 IV: 1000ml; Total: 1000ml. kc6 Outcome: 16:12 Decision to Hospitalize by Provider. rt 16:15 Admitted to ER Hold. Please see [facility] for further documentation. kc6 16:15 Condition: improved 16:15 Instructed on the need for admit, 20:32 Patient left the ED. lg3 Signatures: Dispatcher [employer] EDMS Jigna Cotton rg4 Sonja Azar RN RN lg3 Krupa Cohn RN RN ll1 Hemalatha Jenkins RN RN paddy6 Jaky Miller RN RN db [place]kington, Ryan, MD MD rt Corrections: (The following items were deleted from the chart) 13:33 13:20 Chief complaint: Patient states: SYNCOPAL EPISODE PRIOR TO ARRIVAL HIT HEAD ON db COUNTER WHEN FELL. HAS BEEN FEELING WEAK. HAS BACK AND HEAD PAIN db
[2023-05-09] MEDS: NA CHLORIDE 0.9% 1,000 ML IV SCH (17:07)
[2023-05-09] MEDS: PIPER TAZO 3.375 GM in NA CHLORIDE 0.9% 100 ML IV SCH (17:20)
[2023-05-09] MEDS ORDERED: PIPERACIL/TAZO 3.375 GM VIAL IV ONE (18:10)
[2023-05-09] MEDS ORDERED: NA CHLORIDE 0.9% 100 ML ONE (18:10)
[2023-05-09] MEDS ORDERED: METOPROLOL TAR 25 MG TAB PO ONE (18:58)
[2023-05-09] MEDS ORDERED: APIXABAN 5 MG TABLET ONE (19:18)
[2023-05-09] MEDS ORDERED: METOPROLOL TARTRATE 5 MG/5 ML INJ IV ONE (19:18)
[2023-05-09] MEDS ORDERED: METOPROLOL TARTRATE 5 MG/5 ML INJ IV STA (19:25)
[2023-05-09] MEDS ORDERED: APIXABAN 2.5 MG TABLET PO ONE (20:00)
[2023-05-09] MEDS ORDERED: APIXABAN 5 MG TABLET PO ONE (21:00)
[2023-05-09] MEDS ORDERED: POTASSIUM CL SA 10 MEQ TAB PO ONE (21:43)
[2023-05-09] MEDS ORDERED: MAGNESIUM SULFATE 1 gm IVPB 1 GM/100 ML BAG IV ONE (21:43)
[2023-05-09] MEDS: METOPROLOL TAR 25 MG TAB PO SCH (22:00)
[2023-05-09 22:15] VITALS: O2SAT 98
[2023-05-10] MEDS: PIPER TAZO 3.375 GM in NA CHLORIDE 0.9% 100 ML IV SCH ×3 (01:13→17:45)
[2023-05-10 02:56] LABS: Specific Gravity 1.012 (1.005-1.030); Urine Bacteria <20 /HPF (<20); Urine Bilirubin NEGATIVE (Negative); Urine Blood Negative (Negative); Urine Clarity Clear (Clear); Urine Color Light-Yellow (Yellow); Urine Glucose NEGATIVE (Negative); Urine Mucus Slight /HPF (None Seen); Urine Protein NEGATIVE (Negative); Urine RBC <5 /HPF (None Seen); Urine Urobilinogen Normal (Normal); Urine WBC Clump Rare /HPF (None Seen); Urine pH 6.5 (5.0-7.0)
[2023-05-10 03:07] LABS: Magnesium 2.3 mg/dL (1.6-2.4); Potassium 3.8 mEq/L (3.5-5.1); Troponin High Sensitivity 46.2 pg/mL (<58.9)
[2023-05-10] MEDS: NA CHLORIDE 0.9% 1,000 ML IV SCH ×3 (07:11→22:00)
[2023-05-10] MEDS ORDERED: LOPERAMIDE HCL 2 MG CAPSULE PO PRN (07:19)
[2023-05-10 08:02] LABS: C.diff Antigen/Toxin Ag neg : Tox neg (NEG : NEG)
--- NOTE | 2023-05-10 08:02 | HP ---
Date of Admission: 05/09/2023 Chief Complaint: Diarrhea and fainting episode. History Of Present Illness: This is an 87-year-old female patient who was admitted to hospital over past weekend and was discharged to go home yesterday and this last hospital admission was because of lower abdominal pain and constipation. Patient did not have a bowel movement for several days and sh sven came in with lower abdominal pain. CAT scan of the abdomen had shown changes of constipation along with colitis and patient was admitted to the hospital, was given IV antibiotic, which was Zosyn and required stool softener, Dulcolax rectal suppository and Milk of Magnesia, and last dose of laxative, which was Milk of Magnesia was given yesterday morning. She was discharged to go home with oral ant ibiotic, Augmentin. Patient says that after she left the hospital, she started to have diarrhea and altogether she had about 8 or 9 bowel movements with diarrhea, stool described as liquidy stool. Den ies any blood in stool. She also reports that she had 2 or 3 episodes of passing out and 2 episodes happened while she was sitting in the chair for no obvious reason without any prior symptoms. She wo uld just feel weak and then she would faint for few seconds and today she had similar episode while s he was in the bathroom. Denies any head injury. No nausea, no vomiting. No fever, chills. With al l these complaints, she was brought into emergency room. When she came to ER, her pulse rate was rap id and she has had intermittent episodes of rapid and irregular heartbeat and heart rate going up to 180-200 range. EKG had shown atrial fibrillation with rapid ventricular rate. Patient was admitted to hospital and blood pressure is stable. 1 L of IV fluid was given to her so far by the time I arri korin to emergency room to see her this evening. Patient reports that her abdominal pain has improved. Allergies: MORPHINE CAUSING NAUSEA, VOMITING. Medications: Augmentin 500 mg 2 times a day, atorvastatin 20 mg daily in the evening, escitalopram 2 0 mg daily with breakfast, fluticasone nasal spray 1 spray each nostril 2 times a day, Advair inhaler 1 puff 2 times a day, gabapentin 300 mg 3 times a day, levothyroxine 50 mcg daily, lisinopril 20 mg 2 times a day, magnesium oxide 250 mg daily, nifedipine 30 mg 2 times a day if systolic blood pressur e is more than 120, pantoprazole 40 mg daily, trazodone 50 mg takes 3 tablets at bedtime and Senokot S 2 tablets 2 times a day, which was prescribed yesterday upon discharge for constipation. Review of Systems: GI: As mentioned above. Cardiovascular: As mentioned above. All other systems reviewed and negative. Past Medical History: Significant for type 2 diabetes mellitus, hypothyroidism, mild persistent asth ma, hypertension, mixed hyperlipidemia, gastroesophageal reflux disease, diverticulosis, depression. Past Surgical History: Significant for surgery on left eye, tonsillectomy, cholecystectomy, appendec clementina, hernia repair, hysterectomy, right shoulder surgery, and left hip surgery. Family History: Father , had rectal cancer. Mother , had heart disease. Brother , had colon cancer, prostate cancer, and heart disease. Social History: Negative for smoking and alcohol use. Physical Examination: Vital Signs: When she first came into emergency room, blood pressure 151/79, pulse 138, respiratory rate 20, temperature 99.4, oxygen saturation 99%. Height 5 feet 1 inch, weight 54.43 kg. General: Awake, alert, oriented, not in distress. HEENT: Head atraumatic, normocephalic. Conjunctivae nonerythematous. Sclerae white. Mouth, no thr ush or edema noted. Ears/Nose, no mass, lesion, discharge noted. Neck: Supple. No JVD, lymph nodes, bruit, thyromegaly noted. Lungs: Bilateral good equal air entry. Clear to auscultation. No rhonchi. No rales. Heart: Normal heart sounds, no murmur or gallop. Abdomen: Soft, bowel sounds normal. No guarding, rigidity, tenderness, mass, hepatosplenomegaly, dis tention, or bruit noted. Extremities: No leg edema. No calf tenderness. Skin: No rash, ulcer, cellulitis. Lymphatics: No lymph node enlargement in neck, supraclavicular, infraclavicular region. Neuro: No focal neurological deficit. Chest: Unremarkable. External Genitalia: Deferred. Rectal: Deferred. Laboratory Data: White count 11.8, hemoglobin 13.3, platelets 194. Sodium 140, potassium 3, chlorid e 109, bicarb 24, BUN 15, creatinine 1.12, glucose 95. Magnesium 1.7. TSH 3.8. CT scan of the head was negative for any acute intracranial changes and CT scan of the cervical spine shows changes of d egenerative joint disease. Impression: 1.Atrial fibrillation with rapid ventricular rate. 2.Syncope. 3.Hypokalemia. 4.Volume depletion. 5.Colitis. 6.Lumbar radiculopathy. 7.Hypertension. 8.Mixed hyperlipidemia. 9.Type 2 diabetes mellitus. 10.Gastroesophageal reflux disease. 11.Depression. 12.Mild persistent asthma. Plan: We will go ahead and admit her to the hospital for further evaluation and management of this p roblem. Patient is appropriate for inpatient and is expected to spend 2 midnights in hospital. We w ill consult Cardiology and Lopressor 5 mg IV x1 dose was ordered after I saw her in the emergency mor m and Eliquis 5 mg p.o. x1 dose was ordered. Starting tonight, we will start her on metoprolol 25 mg 2 times a day. We will get an echo with Doppler tomorrow. Follow up with slip maker regarding fu rther recommendation. IV fluid 1 L was given. We will continue maintenance IV fluid and we will giv e 1 g of magnesium sulfate and 40 mEq of oral potassium chloride and repeat electrolytes tomorrow mor leatha. Continue IV antibiotic, which is Zosyn and yesterday before patient was discharged, she was smith ving symptoms of lumbar radiculopathy, so prednisone 30 mg p.o. x1 dose was given yesterday morning a nd we did send prescription for tapering dose of prednisone, but we will not give that to her right n ow in view of this atrial fibrillation problem. Details and plan of treatment discussed with the patient. I will see h er tomorrow for followup. SANDRO/MODL Voice ID: [id number]
[2023-05-10] MEDS: MAGNESIUM OXIDE 400 MG TAB PO SCH (09:00)
[2023-05-10] MEDS: ESCITALOPRAM 20 MG TAB PO SCH (10:08)
[2023-05-10] MEDS: METOPROLOL TAR 25 MG TAB PO SCH ×2 (10:09→21:52)
[2023-05-10] MEDS: GABAPENTIN 300 MG CAP PO SCH ×3 (10:09→21:55)
[2023-05-10] MEDS: PANTOPRAZOLE 40MG TABLET PO SCH (10:09)
[2023-05-10] MEDS: lisinopriL 20 MG TAB PO SCH ×2 (10:09→21:54)
[2023-05-10] MEDS: DULERA 100/5 (MOMETASONE/FORMOTEROL) INHALER IH SCH ×2 (10:16→21:00)
[2023-05-10] MEDS: APIXABAN 5 MG TABLET PO SCH ×2 (10:17→21:54)
[2023-05-10] MEDS ORDERED: AMIODARONE HCL 150 MG in D5W 100 ML IV STA (10:24)
[2023-05-10] MEDS ORDERED: AMIODARONE HCL 450 MG in D5W 241 ML IV SCH (11:00)
[2023-05-10] MEDS ORDERED: AMIODARONE HCL 900 MG in Dextrose 5%-Water 482 ML IV SCH (11:00)
--- NOTE | 2023-05-10 14:33 | P.CNS ---
Date of Consult: 05/10/23 Reason for Consult: Atrial fib with RVR, syncope Requesting Physician: Tunde Pena Primary Care Provider: Dr. Pena Chief Complaint: syncope, weakness History of Present Illness: Ms. Diggs was recently hospitalized for abdominal pain and constipation. She was diagnosed with colitis. She was discharged yesterday with po antibiotics. When she arrived home she had as many as 8 loose stools with persistent and worsening weakness. She had at least 3-5 syncopal episodes, 3 of which were while seated in her chair. She presented to the ED last night with these new symptoms and she was noted to have a paroxysm of SVT 180s and then a. fibrillation with RVR in the 130-160s. Allergies adhesive tape Allergy (Verified 05/16/22 11:24) blisters morphine Adverse Reaction (Mild, Verified 05/16/22 11:24) Headache/Nausea/Vomiting Home medications list reviewed: Yes Home Medications: Atorvastatin Calcium 20 mg PO BEDTIME 01/31/16 Carvedilol 12.5 mg PO BID 01/31/16 Cranberry 1 cap PO DAILY 01/31/16 Fluticasone/Salmeterol [Advair 250/50 Diskus*] 1 puff PO BID PRN 01/31/16 Gabapentin 600 mg PO TID 01/31/16 Latanoprost 1 drop EACH EYE BEDTIME 01/31/16 Levothyroxine Sodium 50 mcg PO DAILY 01/31/16 Dorzolamide HCl/Pf [Dorzolamide 2% Eye Drop] 1 gtt LEFT EYE BID 10/03/18 Acidophilus/Bifido Longum [Lactobacillus Capsule] 1 cap PO DAILY 03/17/23 Amitriptyline [Elavil*] 10 mg PO BEDTIME 03/17/23 Cetirizine HCl [All Day Allergy Relief] 10 mg PO DAILY 03/17/23 Coconut Oil 1,000 mg PO DAILY 03/17/23 Docusate Sodium 100 mg PO DAILY 03/17/23 Hydralazine [Apresoline*] 10 mg PO BID* 03/17/23 Primidone [Mysoline *] 25 mg PO BEDTIME 03/17/23 Trazodone [Desyrel*] 25 mg PO BEDTIME 03/17/23 - Past Medical/Surgical History Diabetic: No -: HTN -: Hyperlipidemia -: Hypothyroidism -: Glaucoma/Macular degeneration -: Asthma -: diverticulosis -: Hernia repair -: r knee replacement, left hip replacement -: tonsillectomy -: abd scar tissue removal -: bilateral cataract -: hysterectomy -: Appendectomy, cholecystecomy -: bladder & rectal suspension, sm bowel resection Psychosocial/ Personal History: lives at home with family - Family History Mother Medical History: Heart disease, Hypertension Father Medical History: Other (see notes) (rectal ca) Notes: blind - Social History Smoking Status: Unknown if ever smoked Alcohol use: Yes CD- Drugs: No Caffeine use: Yes Place of Residence: Home Review of Systems 10-point ROS is otherwise unremarkable General: As per HPI Cardiovascular: As per HPI Gastrointestinal: As per HPI Neurological: As per HPI Physical Examination Temp Pulse Resp BP Pulse Ox 97.8 F 68 16 158/72 H 96 05/10/23 11:47 05/10/23 11:47 05/10/23 11:47 05/10/23 11:47 05/10/23 11:47 General: Alert, In no apparent distress, Oriented x3 HEENT: Atraumatic, Normocephalic Neck: 2+ carotid pulse no bruit, JVD not distended Respiratory: Clear to auscultation bilaterally, Normal air movement Cardiovascular: Normal pulses, Regular rate/rhythm (NSR all night per tele clinical research tech) Capillary refill: <2 Seconds Gastrointestinal: Normal bowel sounds Musculoskeletal: No clubbing Integumentary: No rashes Neurological: Normal speech, Normal tone External genitalia: Deferred Rectal: Deferred Laboratory Data (last 24 hrs) 05/09/23 05/09/23 05/09/23 14:15 14:15 14:15 WBC 11.80 H Hgb 13.3 Hct 39.6 Plt Count 194 PT 12.2 INR 1.11 APTT 23.8 L Sodium 140 Potassium 3.0 L BUN 15 Creatinine 1.12 H Glucose 95 Magnesium 1.7 Total Bilirubin 0.7 AST 21 ALT 28 Alkaline Phosphatase 135 H - Problems (1) Atrial fibrillation with RVR Current Visit: Yes Status: Acute Plan: telemetry, trend electrolytes, Amiodarone 150mg IV bolus, then 1mg/min x 6hours, then 0.5mg/hr x 16hours. Then switch to po amiodarone 200mg po BID.
[2023-05-10] MEDS: TRAZODONE 50 MG TABLET PO SCH (21:54)
[2023-05-10] MEDS: ATORVASTATIN 20 MG TAB PO SCH (21:55)
[2023-05-11] MEDS: PIPER TAZO 3.375 GM in NA CHLORIDE 0.9% 100 ML IV SCH ×3 (01:55→16:57)
[2023-05-11] MEDS: PANTOPRAZOLE 40MG TABLET PO SCH (06:11)
[2023-05-11] MEDS: LEVOTHYROXINE SOD 0.05 MG TABLET PO SCH (06:11)
[2023-05-11 08:44] LABS: Absolute Lymphocytes (CBC) 2.1 K/uL (0.7-4.9); Hematocrit 30.5 % (36.0-45.0); Lymphocytes % 27.4 % (15.3-44.8); MCV 94.3 fL (80-100); MPV 7.4 fL (7.6-11.3); Platelets 152 thou/uL (152-406); RBC Red Blood Cell Count 3.24 M/uL (3.86-4.86)
[2023-05-11 08:58] LABS: Magnesium 1.5 mg/dL (1.6-2.4)
[2023-05-11] MEDS: MAGNESIUM OXIDE 400 MG TAB PO SCH (09:00)
--- NOTE | 2023-05-11 09:09 | P.PN ---
Subjective Date of Service: 05/11/23 Primary Care Provider: Dr. Pena Chief Complaint: syncope, weakness Subjective: Improving, Doing well Review of Systems 10-point ROS is otherwise unremarkable Gastrointestinal: Other (diarrhea resolved) Physical Examination - Vital Signs Temperature: 96.3 F Blood Pressure: 165/73 Pulse: 62 Respirations: 12 Pulse Ox (%): 92 - Physical Exam General: Alert, In no apparent distress, Oriented x3 HEENT: Atraumatic, Normocephalic, PERRLA Neck: Supple, 2+ carotid pulse no bruit Respiratory: Clear to auscultation bilaterally, Normal air movement Cardiovascular: No edema Capillary refill: <2 Seconds Gastrointestinal: Normal bowel sounds, Soft and benign Musculoskeletal: No clubbing Integumentary: No rashes Neurological: Normal speech, Normal tone Lymphatics: No axilla or inguinal lymphadenopathy External genitalia: Deferred Rectal: Deferred Assessment And Plan - Current Problems (Diagnosis) (1) Atrial fibrillation with RVR Current Visit: Yes Status: Acute Plan: telemetry, trend electrolytes, Amiodarone 150mg IV bolus, then 1mg/min x 6hours, then 0.5mg/hr x 16hours. Then switch to po amiodarone 200mg po BID. 05/11/23. Pt states she feels so much better. No diarrhea, slept well. Amiodarone drip complete, will change to 200mg po BID orally NSR over the night
[2023-05-11] MEDS: GABAPENTIN 300 MG CAP PO SCH ×3 (10:32→21:49)
[2023-05-11] MEDS: ESCITALOPRAM 20 MG TAB PO SCH (10:32)
[2023-05-11] MEDS: METOPROLOL TAR 25 MG TAB PO SCH ×2 (10:32→21:46)
[2023-05-11] MEDS: APIXABAN 5 MG TABLET PO SCH ×2 (10:33→21:47)
[2023-05-11] MEDS: NA CHLORIDE 0.9% 1,000 ML IV SCH (10:33)
[2023-05-11] MEDS: lisinopriL 20 MG TAB PO SCH ×2 (10:33→21:47)
[2023-05-11] MEDS: DULERA 100/5 (MOMETASONE/FORMOTEROL) INHALER IH SCH ×2 (10:34→21:48)
[2023-05-11] MEDS: AMIODARONE HCL 900 MG in Dextrose 5%-Water 482 ML IV SCH (13:09)
--- NOTE | 2023-05-11 14:06 | PN ---
Date of Progress Note: 05/10/2023 Subjective: Patient was seen this morning for followup. No new complaints or problems reported by h er except ongoing diarrhea. No abdominal pain, nausea, vomiting. Objective: Vital Signs: Reviewed. HEENT: Unremarkable. Lungs: Clear to auscultation. Heart: Sounds normal. Abdomen: Soft. Bowel sounds normal. No guarding, rigidity, tenderness, distention. Extremities: No leg edema. Laboratory Data: Sodium 143, potassium 3.8, chloride 111, bicarb 25, BUN 13, creatinine 1.01, glucos e 87. Magnesium 2.3. Stool for C difficile came back negative. Impression: 1.Colitis. 2.Diarrhea. 3.Volume depletion. 4.Hypokalemia. 5.Hypertension. 6.Atrial fibrillation with rapid ventricular rate. Plan: We will continue to follow up with interchange agent and interchange agent has started patient on amioda breanna drip. We will continue that. Continue current antibiotics. We will follow up on echo with Dop pler and follow up with interchange agent and I will see her tomorrow for followup. Since the patient is having frequent diarrhea, Imodium 1 mg every 6 hours as needed wa s ordered. SANDRO/MODL Voice ID: [id number] Report ID: [id number]
--- NOTE | 2023-05-11 14:11 | PN ---
Date of Progress Note: 05/11/2023 Subjective: Patient was seen this morning for followup. She looked a lot better and reports that sh e is feeling a lot better. Reports that her diarrhea problem has resolved now and no more diarrhea o vernight. She is able to ambulate in the room between her bed and bathroom without any difficulties. She is able to tolerate diet very well. Denies any abdominal pain, nausea, vomiting. No chest neena n, shortness of breath, or any palpitation. She remains in sinus rhythm now since amiodarone was sta rted for her. Objective: Vital Signs: Reviewed this morning. HEENT: Unremarkable. Lungs: Clear to auscultation. Heart: Sounds normal. Abdomen: Soft. Bowel sounds normal. No guarding, rigidity, tenderness, distention. Extremities: No leg edema. Laboratory Data: Sodium 146, potassium 3, chloride 119, bicarb 22, BUN 4, creatinine 0.85, glucose 1 10. Magnesium 1.9. White count 7.5, hemoglobin 10.4, platelets 152. Impression: 1.Atrial fibrillation with rapid ventricular rate. 2.Hypokalemia. 3.Hypomagnesemia. 4.Colitis. 5.Hypertension. Plan: We will go ahead and continue amiodarone per student services representative. Patient will start to take oral am iodarone starting today. Continue Eliquis. We will continue current antibiotic, which is Zosyn. Re place electrolytes per protocol and I will see her tomorrow for followup. Discontinue IV fluid and continue current antihypertensive medications. Possible discharg e to go home tomorrow. SANDRO/MODL Voice ID: [id number] Report ID: [id number]
[2023-05-11] MEDS: AMIODARONE HCL 200 MG TAB PO SCH ×2 (16:57→21:46)
[2023-05-11] MEDS: TRAZODONE 50 MG TABLET PO SCH (21:46)
[2023-05-11] MEDS: ATORVASTATIN 20 MG TAB PO SCH (21:47)
[2023-05-12] MEDS: PIPER TAZO 3.375 GM in NA CHLORIDE 0.9% 100 ML IV SCH ×3 (02:09→16:08)
[2023-05-12] MEDS: PANTOPRAZOLE 40MG TABLET PO SCH (05:53)
[2023-05-12] MEDS: LEVOTHYROXINE SOD 0.05 MG TABLET PO SCH (05:53)
[2023-05-12] MEDS: APIXABAN 5 MG TABLET PO SCH ×2 (08:55→20:42)
[2023-05-12] MEDS: MAGNESIUM OXIDE 400 MG TAB PO SCH (08:55)
[2023-05-12] MEDS: AMIODARONE HCL 200 MG TAB PO SCH ×2 (08:55→20:43)
[2023-05-12] MEDS: ESCITALOPRAM 20 MG TAB PO SCH (08:55)
[2023-05-12] MEDS: lisinopriL 20 MG TAB PO SCH ×2 (08:55→20:44)
[2023-05-12] MEDS: DULERA 100/5 (MOMETASONE/FORMOTEROL) INHALER IH SCH ×2 (08:56→20:47)
[2023-05-12] MEDS: METOPROLOL TAR 25 MG TAB PO SCH ×2 (08:56→20:43)
[2023-05-12] MEDS: GABAPENTIN 300 MG CAP PO SCH ×3 (08:56→20:44)
[2023-05-12 10:07] LABS: Absolute Lymphocytes (CBC) 1.6 K/uL (0.7-4.9); Hematocrit 31.3 % (36.0-45.0); Lymphocytes % 21.5 % (15.3-44.8); MCV 93.3 fL (80-100); MPV 7.4 fL (7.6-11.3); Platelets 155 thou/uL (152-406); RBC Red Blood Cell Count 3.35 M/uL (3.86-4.86)
[2023-05-12 10:23] LABS: Magnesium 1.5 mg/dL (1.6-2.4); Potassium 2.8 mEq/L (3.5-5.1)
[2023-05-12] MEDS ORDERED: Magnesium Sulfate 2gm IVPB 2 G/50 ML BAG IV ONE (10:46)
[2023-05-12] MEDS: AMIODARONE HCL 900 MG in Dextrose 5%-Water 482 ML IV SCH (11:20)
[2023-05-12] MEDS ORDERED: NA CHLORIDE 0.9% 250 ML ONE (12:11)
[2023-05-12] MEDS ORDERED: AMLODIPINE 5 MG TAB PO ONE (12:59)
[2023-05-12] MEDS: KCL 20 MEQ/100 mL IVPB 20 MEQ/100 ML BAG IV SCH ×3 (13:03→17:22)
[2023-05-12 18:06] VITALS: BMI 23.3
[2023-05-12] MEDS ORDERED: NA CHLORIDE 0.9% 100 ML ONE (20:27)
[2023-05-12] MEDS: ATORVASTATIN 20 MG TAB PO SCH (20:42)
[2023-05-12] MEDS: TRAZODONE 50 MG TABLET PO SCH (20:44)
[2023-05-12] MEDS ORDERED: POTASSIUM CL SA 10 MEQ TAB PO ONE (21:00)
[2023-05-13] MEDS: PIPER TAZO 3.375 GM in NA CHLORIDE 0.9% 100 ML IV SCH ×3 (01:13→16:37)
[2023-05-13] MEDS: MAGNESIUM OXIDE 400 MG TAB PO SCH (09:00)
[2023-05-13] MEDS: ESCITALOPRAM 20 MG TAB PO SCH (09:50)
[2023-05-13] MEDS: METOPROLOL TAR 25 MG TAB PO SCH (09:50)
[2023-05-13] MEDS: APIXABAN 5 MG TABLET PO SCH (09:50)
[2023-05-13] MEDS: lisinopriL 20 MG TAB PO SCH (09:50)
[2023-05-13] MEDS: AMIODARONE HCL 200 MG TAB PO SCH (09:50)
[2023-05-13] MEDS: GABAPENTIN 300 MG CAP PO SCH ×2 (09:50→13:04)
[2023-05-13] MEDS: DULERA 100/5 (MOMETASONE/FORMOTEROL) INHALER IH SCH (09:52)
[2023-05-13] MEDS: PANTOPRAZOLE 40MG TABLET PO SCH (09:58)
[2023-05-13] MEDS: LEVOTHYROXINE SOD 0.05 MG TABLET PO SCH (09:58)
[2023-05-13 10:52] LABS: Magnesium 1.7 mg/dL (1.6-2.4); Potassium 3.3 mEq/L (3.5-5.1)
--- NOTE | 2023-05-13 11:11 | DS ---
Date of Discharge: 05/13/2023 Disposition: Discharged to go home. Physical Examination: HEENT: Unremarkable. Lungs: Clear to auscultation. Heart: Sounds normal. No guarding, rigidity, tenderness, distention. Extremities: No leg edema. Laboratory Data: Upon admission, white count 11.8, hemoglobin 13.3, platelets 194. Last CBC from , white count 7.7, hemoglobin 10.8, platelets 155. Upon admission, sodium was 140, potassium 3, chloride 109, bicarb 24, BUN 15, creatinine 1.12, glucose 95. Liver function tests unremarkable. Other day before yesterday, potassium dropped down to 3, magnesium dropped down to 1.5. Yesterday, potassium was 2.8 with magnesium 1.5, and electrolytes were corrected with electrolyte replacement pr otocol. This morning's blood work result is pending. We will review that and after that, plan is to discharge her to go home. Stool for C diff came back negative. Hospital Course: This is an 87-year-old pleasant female patient came into emergency room with diarrh ea and fainting episode. Please see dictated H and P for more information. Patient was admitted to the hospital with atrial fibrillation with rapid ventricular rate, syncope, hypokalemia, volume deple tion. After she was admitted to hospital, initially she was given IV metoprolol and then subsequentl y oral metoprolol was started along with Eliquis. Cardiology consultation was obtained from Dr. Nicolette robertson. He started her on IV amiodarone. She converted to sinus rhythm and remained in sinus rhythm and now she is on oral amiodarone therapy. She had significant problem with diarrhea and required use o f Imodium and now her diarrhea problem has resolved for last 2-3 days and has been having normal mello l movement on a daily basis, at least for last 2 days or so. Denies any abdominal pain, nausea, or v omiting. Has a good appetite and overall her condition has improved and stabilized. Final Diagnoses: 1.Atrial fibrillation with rapid ventricular rate, new onset, converted to sinus rhythm with amiodar one. 2.Syncope secondary to above. 3.Hypokalemia. 4.Hypomagnesemia. 5.Volume depletion. 6.Colitis. 7.Lumbar radiculopathy. 8.Hypertension. 9.Mixed hyperlipidemia. 10.Type 2 diabetes mellitus. 11.Gastroesophageal reflux disease. 12.Depression. 13.Mild persistent asthma. Discharge Medications And Instructions: 1.Continue all prior home medications. 2.Amiodarone 200 mg take 1 tablet by mouth 2 times a day. 3.Eliquis 5 mg 2 times . 4.Do not take any aspirin, Aleve, Motrin type of medications. 5.Avoid any fall or head injury. 6.Come to emergency room if she have any head injury, bleeding from nose, mouth, blood in urine or s tool or excessive bleeding from skin cut. 7.Follow up at my office next week. SANDRO/OLGA LIDIA Voice ID: [id number] Report ID: [id number]
[2023-05-13] MEDS ORDERED: POTASSIUM CL SA 10 MEQ TAB PO ONE (14:21)
[2023-05-13 16:51] VITALS: BP 165/69; TEMP 98.4
== END 2023-05-13 17:27 | disposition home or self-care (01) | DRG 310 ==
LOC: ER 13:14 → ERHOLD 16:30 → 3RD-ICU 19:55 → OBSVTOIN 21:44 → 2ND 22:23
PROVIDERS: ADMIT Internal Medicine; ATTEND Internal Medicine
DX: I48.91 Unspecified atrial fibrillation (principal); I47.10 Supraventricular tachycardia, unspecified; I10 Essential (primary) hypertension; E03.9 Hypothyroidism, unspecified; K59.00 Constipation, unspecified; E78.2 Mixed hyperlipidemia; E87.6 Hypokalemia; M54.16 Radiculopathy, lumbar region; E83.42 Hypomagnesemia; E86.9 Volume depletion, unspecified; E11.40 Type 2 diabetes mellitus with diabetic neuropathy, unspecified; K52.9 Noninfective gastroenteritis and colitis, unspecified; F32.A Depression, unspecified; K21.9 Gastro-esophageal reflux disease without esophagitis; J45.30 Mild persistent asthma, uncomplicated; Z88.5 Allergy status to narcotic agent; Z79.02 Long term (current) use of antithrombotics/antiplatelets; Z90.49 Acquired absence of other specified parts of digestive tract; Z91.048 Other nonmedicinal substance allergy status; Z79.899 Other long term (current) drug therapy; Z90.710 Acquired absence of both cervix and uterus; Z96.642 Presence of left artificial hip joint; Z96.651 Presence of right artificial knee joint; Z79.890 Hormone replacement therapy
CPT/HCPCS: 36415; 70450; 72125; 80048; 80053; 81001; 82550; 82947; 83605; 83735; 84132; 84439; 84443; 84484; 85025; 85610; 85730; 87040; 87086; 87088; 87324; 93005; 96360; 96361; 99285; G0378; J0282; J2543; J3475; J3480; J3535; J7030; J7050; J7060

== ENCOUNTER → 2023-05-23 | Emergency (ER) | payer OTHER, BC ==
[~2023-05-23] MED LIST: FENTANYL CITR 100 MCG/2 ML ONE; METOCLOPRAMIDE 10 MG/2mL INJ ONE; ONDANSETRON 4 MG/2 ML VIAL ONE; TDAP (DIPHTH,PERTUSS(ACELL),TET VAC) 0.5 ML VIAL IMVAC ONE
[2023-05-23 01:32] LABS: Absolute Lymphocytes (CBC) 2.5 K/uL (0.7-4.9); Hematocrit 35.4 % (36.0-45.0); Lymphocytes % 42.3 % (15.3-44.8); MCV 94.9 fL (80-100); MPV 7.4 fL (7.6-11.3); Platelets 222 thou/uL (152-406); RBC Red Blood Cell Count 3.73 M/uL (3.86-4.86)
[2023-05-23 01:37] LABS: Potassium 4.1 mEq/L (3.5-5.1)
--- NOTE | 2023-05-23 04:21 | EDPHYS ---
Physician Documentation [facility] Name: Yady Diggs Age: 88 yrs Sex: Female : 1935 Arrival Date: 05/23/2023 Time: 00:10 Bed 4 Private MD: ED Physician Glen Martinez HPI: 05/23 00:33 This 88 yrs old Female presents to ER via Unassigned with complaints of Fall sp4 Injury. 00:38 With fall, head injury, pelvic injury, right thigh pain, acute skin tear left upper arm sp4 and the right forearm as well. 04:17 88-year-old female presents with acute fall at home just prior to arrival. Patient fell sp4 acutely onto her right side. Patient takes p.o. Eliquis. Patient complains of bilateral arm abrasion, left upper arm abrasion, acute injury pain to the right hip, head injury and headache.. Historical: - Allergies: 00:39 adhesive tape; lg3 00:39 Iodine; lg3 00:39 Morphine; lg3 - PMHx: 00:39 diabetes mellitus; GERD; Glaucoma; High Cholesterol; Hypertension; Hypothyroidism; lg3 neuropathy; AFIB (neuropathy); - PSHx: 00:39 Appendectomy; section; Cholecystectomy; hysterectomy; Tonsillectomy; lg3 - Immunization history: Last tetanus immunization: unknown. - Social history:: Smoking status: Patient denies any tobacco usage or history of. Patient uses alcohol, occasionally. - Family history:: not pertinent. ROS: 04:17 Constitutional: Negative for fever, chills, and weight loss, positive headache, sp4 positive right forearm abrasion, positive left upper arm abrasion, positive pelvic pain, positive right hip pain. 04:17 All other systems are negative, Exam: 04:17 Constitutional: This is a well developed, well nourished patient who is awake, alert, sp4 and in no acute distress. Very frail elderly female Head/Face: Normocephalic, atraumatic. Eyes: Pupils equal round and reactive to light, extra-ocular motions intact. Lids and lashes normal. Conjunctiva and sclera are not injected. Cornea within normal limits. Periorbital areas with no swelling, redness, or edema. ENT: Nares patent. No nasal discharge, no septal abnormalities noted. Tympanic membranes are normal and external auditory canals are clear. Oropharynx with no redness, swelling, or masses, exudates, or evidence of obstruction, uvula midline. Mucous membranes moist. Neck: Trachea midline, no thyromegaly or masses palpated, and no cervical lymphadenopathy. Supple, full range of motion without nuchal rigidity, or vertebral point tenderness. Chest/axilla: Normal chest wall appearance and motion. Nontender with no deformity. No lesions are appreciated. Cardiovascular: Regular rate and rhythm with a normal S1 and S2. No gallops, murmurs, or rubs. Normal PMI, no JVD. No pulse deficits. Respiratory: Lungs have equal breath sounds bilaterally, clear to auscultation and percussion. No rales, rhonchi or wheezes noted. No increased work of breathing, no retractions or nasal flaring. Abdomen/GI: Soft, non-tender, with normal bowel sounds. No distension or tympany. No guarding or rebound. No evidence of tenderness throughout. Back: No spinal tenderness. No costovertebral tenderness. Skin: Warm, dry with normal turgor. Normal color with no rashes, no lesions, and no evidence of cellulitis. MS/ Extremity: Pulses equal, no cyanosis. Neurovascular intact. Full, normal range of motion. Positive right upper thigh tenderness Neuro: Awake and alert, GCS 15, oriented to person, place, time, and situation. Cranial nerves II-XII grossly intact. Motor strength 5/5 in all extremities. Sensory grossly intact. Psych: Awake, alert, with orientation to person, place and time. Behavior, mood, and affect are within normal limits Vital Signs: 00:39 BP 159 / 79; Pulse 76; Resp 17 S; Temp 97.9; Pulse Ox 99% on R/A; Weight 65.77 kg; ha1 01:30 BP 162 / 66; Pulse 71; Resp 17 S; Pulse Ox 97% on R/A; ha1 02:30 BP 151 / 67; Pulse 69; Resp 17 S; Pulse Ox 96% on R/A; ha1 03:00 BP 155 / 66; Pulse 69; Resp 17 S; Pulse Ox 96% on R/A; ha1 03:00 BP 155 / 66; Pulse 72; Resp 20; Pulse Ox 94% ; la4 04:00 BP 148 / 76; Pulse 68; Resp 17; Pulse Ox 96% ; ha1 Miguel Ángel Coma Score: 00:34 Eye Response: spontaneous(4). Motor Response: obeys commands(6). Verbal Response: lg3 oriented(5). Total: 15. Trauma Score (Adult): 00:34 Eye Response: spontaneous(1); Verbal Response: oriented(1); Motor Response: obeys lg3 commands(2); Systolic BP: > 89 mm Hg(4); Respiratory Rate: 10 to 29 per min(4); [place] Score: 15; Trauma Score: 12 MDM: 00:38 Patient medically screened. sp4 04:08 ED course: CT Trauma survey - IMPRESSION: No evidence for acute traumatic injury to the sp4 head. Mild brain atrophy with minimal periventricular white matter changes of microvascular ischemia. No evidence for acute fracture or subluxation of the cervical spine. Moderate to large hiatal hernia. Coronary artery calcifications. Status post cholecystectomy and hysterectomy. Probable surgical changes within the midline small bowel loops along the pelvis. Minimal diverticulosis with no evidence for diverticulitis. No evidence for acute traumatic injury within the chest, abdomen, or pelvis on this noncontrast CT examination. Status post total left hip arthroplasty which limits evaluation of the pelvis. No definitive significant fractures and/or compression deformities. Electronically signed by: Ricardo Calvin MD 05/23/2023 02:15 AM C. 04:09 ED course: Femur - CLINICAL HISTORY: 88 years, Female, acute fall COMPARISON: sp4 Collecting FINDINGS: 2 X-ray views of the right femur were performed. Bones: There is questionable minimal area of the irregular buckling inferior right pubic ramus. No areas of acute bony injuries were demonstrated. Soft tissues: No significant procedure swelling. Minimal vascular calcifications femoral vessels Joints: There are minimal degenerative changes right hip joint and right knee joint Others: There are no gross intraosseous lesions. No periosteal reaction were seen. No definitive displaced fracture are identified, if symptoms persist, clinical correlation and/or further evaluation with CT scan and/or MRI could be of assistance. IMPRESSION: Questionable minimal area of irregular buckling inferior right pubic ramus. No definitive displaced fracture are identified, clinical correlation and/or further evaluation with CT scan and/or MRI could be of assistance. . 04:23 Differential diagnosis: abrasion, closed head injury, contusion, fracture, laceration, sp4 multiple trauma, sprain, strain. Data reviewed: vital signs, nurses notes, old medical records, lab test result(s), radiologic studies, CT scan, plain films. 05/23 00:33 Order name: Basic Metabolic Panel; Complete Time: 03:03 sp4 05/23 00:33 Order name: CBC with Diff; Complete Time: 03:03 sp4 05/23 00:33 Order name: Type And Screen; Complete Time: 03:03 sp4 05/23 00:33 Order name: CT Traumagram (Head C Spine CAP wo con) sp4 05/23 00:38 Order name: Femur Right XRAY sp4 05/23 00:33 Order name: Labs collected and sent; Complete Time: :18 sp4 05/23 00:34 Order name: Dressing - Wound; Complete Time: :18 sp4 05/23 00:34 Order name: Gloves, Sterile; Complete Time: :18 sp4 05/23 00:34 Order name: Setup Suture Tray; Complete Time: :18 sp4 05/23 00:39 Order name: Wound Care: apply Xerofoam dressings left upper arm and Right forearm ; 4 Complete Time: 01:14 Administered Medications: 00:50 Drug: Ondansetron PO 4 mg PO once Route: PO; ha1 01:15 Follow up: Response: No adverse reaction ha1 03:06 Follow up: Response: No adverse reaction la4 00:52 Drug: fentaNYL (PF) IVP 25 mcg IVP once Route: IVP; Site: right antecubital; ha1 01:15 Follow up: Response: No adverse reaction; Pain is decreased; RASS: Alert and Calm (0) ha1 03:06 Follow up: Response: No adverse reaction; Pain is unchanged, physician notified la4 01:16 Drug: Tetanus-Diphtheria Toxoid IM Adult 0.5 ml IM once; Provide Vaccine Information ha1 Statement (VIS). 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 Questions and/or ha1 concerns addressed. VIS edition date: Jan 07, 2021.; No adverse reaction 03:06 Follow up: Response: No adverse reaction la4 01:18 Not Given (Physician Discretion): lidocaine(1 %) 20 ml 20 ml Infiltration once; to ha1 bedside 03:14 Drug: fentaNYL (PF) IVP 25 mcg IVP once Route: IVP; Site: right antecubital; la4 03:25 Follow up: Response: No adverse reaction; Pain is decreased; RASS: Alert and Calm (0) ha1 03:14 Drug: metoCLOPramide IVP 10 mg IVP once; over 1 to 2 minutes Route: IVP; Site: right la4 antecubital; 03:25 Follow up: Response: No adverse reaction ha1 Disposition Summary: 05/23/23 04:21 Discharge Ordered Notes: Location: Home sp4 Problem: new sp4 Symptoms: have improved sp4 Condition: Stable sp4 Diagnosis - Contusion of right hip sp4 - Acute fall at home, acute right hip pain, acute right forearm abrasion, acute left sp4 upper arm abrasion, acute pelvic pain, acute soft tissue contusion, acute headache Followup: sp4 - With: Private Physician - When: 7 - 10 days - Reason: Recheck today's complaints Discharge Instructions: - Discharge Summary Sheet sp4 - Contusion, [id number] sp4 Forms: - Patient Portal Instructions sp4 Prescriptions: - acetaminophen-codeine 300-60 mg Oral tablet - take 1 tablet ORAL route every 8 hours PRN pain; 20 tablet; Refills: 0, Product sp4 Selection Permitted Signatures: Dispatcher [employer] Sonja Stark RN RN lg3 Millicent Clinton RN RN ha1 Glen Martinez MD MD sp4 Jessie Bell RN RN la4
--- NOTE | 2023-05-23 04:21 | ER ---
Nurse's Notes [facility] Name: Yady Diggs Age: 88 yrs Sex: Female : 1935 Arrival Date: 05/23/2023 Time: 00:10 Bed 4 Private MD: Diagnosis: Contusion of right hip;Acute fall at home, acute right hip pain, acute right forearm abrasion, acute left upper arm abrasion, acute pelvic pain, acute soft tissue contusion, acute headache Presentation: 05/23 00:34 Chief complaint: Patient states: fall from standing position landing on right side. lg3 unknown LOC. pain to right side of head, shoulder and hip. laceration to left posterior upper arm. Care prior to arrival: None. Mechanism of Injury: Fall. Trauma event details: Injury occurred in the [facility], Injury occurred: at home. Injury occurred: May 23, 2023. 00:34 Acuity: NILAY 2 lg3 00:34 Method Of Arrival: Wheelchair lg3 00:39 Coronavirus screen: Client denies travel out of the [place] in the last 14 days. At this lg3 time, the client does not indicate any symptoms associated with coronavirus-19. Ebola Screen: No symptoms or risks identified at this time. Risk Assessment: Do you want to hurt yourself or someone else? Patient reports no desire to harm self or others. Onset of symptoms was May 23, 2023. Trauma Activation: Alert Physician: ED Physician; Name: ; Notified At: ; Arrived At: Physician: General Surgeon; Name: ; Notified At: ; Arrived At: Physician: Radiology; Name: ; Notified At: ; Arrived At: Physician: Respiratory; Name: ; Notified At: ; Arrived At: Physician: Lab; Name: ; Notified At: ; Arrived At: Historical: - Allergies: 00:39 adhesive tape; lg3 00:39 Iodine; lg3 00:39 Morphine; lg3 - PMHx: 00:39 diabetes mellitus; GERD; Glaucoma; High Cholesterol; Hypertension; Hypothyroidism; lg3 neuropathy; AFIB (neuropathy); - PSHx: 00:39 Appendectomy; section; Cholecystectomy; hysterectomy; Tonsillectomy; lg3 Historical Immunization: - Administered Vaccines 03:14 fentaNYL (PF) IVP 25 mcg la4 03:14 metoCLOPramide IVP 10 mg la4 01:16 Tetanus-Diphtheria Toxoid IM Adult 0.5 ml ha1 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 - Social history:: Smoking status: Patient denies any tobacco usage or history of. Patient uses alcohol, occasionally. - Family history:: not pertinent. Screenin:34 Abuse screen: Denies threats or abuse. Denies injuries from another. Tuberculosis lg3 screening: No symptoms or risk factors identified. Primary Survey: 00:34 NO uncontrolled hemorrhage observed. A: The client is awake and alert. The airway is lg3 patent. Breathing/Chest: Spontaneous respiratory effort, equal unlabored respirations, breath sounds clear bilaterally, regular pattern, symmetrical chest rise and fall. Circulation: No external hemorrhage present. Regular and strong central pulse, skin warm/dry/normal color. Disability Pupils are equal, round, reactive to light and accommodation. Client is alert. Client responds to verbal stimuli. Exposure/Environment: All clothing and personal items were removed. Forensic evidence collection is not deemed to be indicated at this time. Items placed in patient belonging bag. Assessment: 00:34 General: Appears in no apparent distress. uncomfortable, Behavior is calm, cooperative. lg3 Pain: Complains of pain in head, right hip and right arm. Neuro: No deficits noted. Weathers Agitation-Sedation Scale (RASS): 0 - Alert and Calm Level of Consciousness is awake, alert, obeys commands, Oriented to person, place, time, situation, Reports dizziness, headache. EENT: No deficits noted. No signs and/or symptoms were reported regarding the EENT system. Cardiovascular: No deficits noted. Denies chest pain, shortness of breath, Capillary refill < 3 seconds Clubbing of nail beds is absent JVD is absent Patient's skin is warm and dry. Respiratory: No deficits noted. Airway is patent Respiratory effort is even, unlabored, Respiratory pattern is regular, symmetrical. GI: No deficits noted. No signs and/or symptoms were reported involving the gastrointestinal system. : No deficits noted. No signs and/or symptoms were reported regarding the genitourinary system. Derm: Wound noted left tricep. Musculoskeletal: Circulation, motion, and sensation intact. Range of motion: intact in all extremities. 01:30 Reassessment: Patient and/or family updated on plan of care and expected duration. Pain ha1 level reassessed. Patient is alert, oriented x 3, equal unlabored respirations, skin warm/dry/pink. 02:40 Reassessment: Patient and/or family updated on plan of care and expected duration. Pain ha1 level reassessed. Patient is alert, oriented x 3, equal unlabored respirations, skin warm/dry/pink. PAIN 8/[address] BURTON. 03:25 Reassessment: Patient and/or family updated on plan of care and expected duration. Pain ha1 level reassessed. Patient is alert, oriented x 3, equal unlabored respirations, skin warm/dry/pink. PAIN 2/10 Patient states feeling better. Patient states symptoms have improved. Vital Signs: 00:39 BP 159 / 79; Pulse 76; Resp 17 S; Temp 97.9; Pulse Ox 99% on R/A; Weight 65.77 kg; ha1 01:30 BP 162 / 66; Pulse 71; Resp 17 S; Pulse Ox 97% on R/A; ha1 02:30 BP 151 / 67; Pulse 69; Resp 17 S; Pulse Ox 96% on R/A; ha1 03:00 BP 155 / 66; Pulse 69; Resp 17 S; Pulse Ox 96% on R/A; ha1 03:00 BP 155 / 66; Pulse 72; Resp 20; Pulse Ox 94% ; la4 04:00 BP 148 / 76; Pulse 68; Resp 17; Pulse Ox 96% ; ha1 Miguel Ángel Coma Score: 00:34 Eye Response: spontaneous(4). Motor Response: obeys commands(6). Verbal Response: lg3 oriented(5). Total: 15. Trauma Score (Adult): 00:34 Eye Response: spontaneous(1); Verbal Response: oriented(1); Motor Response: obeys lg3 commands(2); Systolic BP: > 89 mm Hg(4); Respiratory Rate: 10 to 29 per min(4); Miguel Ángel Score: 15; Trauma Score: 12 ED Course: 00:21 Patient arrived in ED. gm2 00:25 Inserted saline lock: 22 gauge in right antecubital area, using aseptic technique. ha1 Blood collected. 00:33 Glen Martinez MD is Attending Physician. sp4 00:34 Patient has correct armband on for positive identification. Placed in gown. Bed in low lg3 position. Call light in reach. Side rails up X 1. Patient maintains SpO2 saturation greater than 95% on room air. Family accompanied patient. 00:34 Patient maintains SpO2 saturation greater than 95% on room air. lg3 00:37 Triage completed. lg3 00:39 Arm band placed on right wrist. lg3 00:56 Femur Right XRAY In Process Unspecified. EDMS 01:18 Basic Metabolic Panel Sent. ha1 01:18 CBC with Diff Sent. ha1 01:19 Type And Screen Sent. ha1 01:41 CT Traumagram (Head C Spine CAP wo con) In Process Unspecified. EDMS Administered Medications: 00:50 Drug: Ondansetron PO 4 mg PO once Route: PO; ha1 01:15 Follow up: Response: No adverse reaction ha1 03:06 Follow up: Response: No adverse reaction la4 00:52 Drug: fentaNYL (PF) IVP 25 mcg IVP once Route: IVP; Site: right antecubital; ha1 01:15 Follow up: Response: No adverse reaction; Pain is decreased; RASS: Alert and Calm (0) ha1 03:06 Follow up: Response: No adverse reaction; Pain is unchanged, physician notified la4 01:16 Drug: Tetanus-Diphtheria Toxoid IM Adult 0.5 ml IM once; Provide Vaccine Information ha1 Statement (VIS). {Slice Cutting Machine Operator Helper: Brozengo; Exp: SunOct 24 2024; Lot #: [id number]; Series: 1 of 1; Patient Consent: Obtained; Date/Time: ; Source Name: Yady Diggs; Source Relationship: Self; Address Information: [address] [place] [address]; ; Education: Provided; VIS Presented Date: ; VIS Publication: Tetanus/Diphtheria (Td) Vaccine VIS 09/12/2016 (historic)} Route: IM; Site: left deltoid; 01:53 Follow up: Response: (VIS) Vaccine information sheet provided today. Questions and/or ha1 concerns addressed. VIS edition date: Jan 07, 2021.; No adverse reaction 03:06 Follow up: Response: No adverse reaction la4 01:18 Not Given (Physician Discretion): lidocaine(1 %) 20 ml 20 ml Infiltration once; to ha1 bedside 03:14 Drug: fentaNYL (PF) IVP 25 mcg IVP once Route: IVP; Site: right antecubital; la4 03:25 Follow up: Response: No adverse reaction; Pain is decreased; RASS: Alert and Calm (0) ha1 03:14 Drug: metoCLOPramide IVP 10 mg IVP once; over 1 to 2 minutes Route: IVP; Site: right la4 antecubital; 03:25 Follow up: Response: No adverse reaction ha1 Outcome: 04:21 Discharge ordered by MD. mehta 05:00 Patient left the ED. la4 Signatures: Dispatcher [employer] EDMS Sonja Azar RN RN lg3 Millicent Clinton RN RN ha1 Glen Martinez MD MD sp4 Adriana Powell 2 Jessie Bell RN RN la4 Corrections: (The following items were deleted from the chart) 04:15 03:20 Reassessment: Patient and/or family updated on plan of care and expected ha1 duration. Pain level reassessed. Patient is alert, oriented x 3, equal unlabored respirations, skin warm/dry/pink. PAIN 2/10 Patient states feeling better. Patient states symptoms have improved. ha1
[2023-05-23 07:07] VITALS: TEMP 97.9; O2SAT 96
[2023-05-23 07:12] VITALS: BP 148/76
--- NOTE | 2023-05-23 11:56 | RAD REPORT ---
EXAM DESCRIPTION: CLINICAL HISTORY: HEADACHE. TECHNIQUE: Noncontrast CT through the head was performed. Axial, coronal, and sagittal reconstructions were crea keenan and sent to PACS. This exam was performed according to our departmental dose-optimization program which includes use of Automated Exposure Control, adjustment of the mA and/or kV according to patien t size and/or use of iterative reconstruction technique. COMPARISON: None. FINDINGS: The brain parenchyma appears unremarkable. There is no intra-axial or extra-axial bleed se en. There is no mass or mass effect. The ventricles are unremarkable. The orbital contents appear unr emarkable. The visualized paranasal sinuses and mastoid air cells are patent. No acute fracture is identified. IMPRESSION: No acute intracranial abnormality identified. Electronically signed by: Kalie Mcneil MD 05/22/2023 11:08 PM TAX REPRESENTATIVE Due to temporary technical issues with the PACS/Fluency reporting system, reports are being signed by the in house radiologists without review as a courtesy to insure prompt reporting. The interpreting radiologist is fully responsible for the content of the report.
--- NOTE | 2023-05-23 12:31 | RAD REPORT ---
EXAM DESCRIPTION: Head C Spine Cap Wo Con 05/23/2023 1:55 AM GENERAL OPERATIONS MANAGER CLINICAL HISTORY: 88 years, Female, fall COMPARISON: 05/09/2023 FINDINGS: Multiple transaxial tomograms of the brain were obtained from the base of the skull to the vertex without contrast. An individualized dose optimization technique, Automated Exposure Control, was utilized for the perfo rmed procedure. Multiple axial CT images through the cervical spine were obtained at 2 mm slice thickness at 2 mm int erval reconstruction. In addition 2-D multiplanar reformats and the sagittal coronal plane were perfo rmed and reviewed. Noncontrast images of the chest, abdomen and pelvis were performed utilizing 5 mm slice thickness at 5 mm interval reconstruction from the lung apices to the ischial tuberosities. In addition multiplanar reformats in the coronal and sagittal plane were obtained and reviewed. An individualized dose optimization technique, Automated Exposure Control, was utilized for the perfo rmed procedure. CT head: Brain parenchyma demonstrate mild prominence of the sulci and are correspond to mild cerebra l and cerebellar atrophy. There is minimal periventricular white white matter changes of microvascula r ischemia. There is minimal intracranial vascular ossification. There is no evidence for acute intra parenchymal hemorrhage. No midline shift and/or mass effect. Lateral ventricles and cisterns displace normal appearance. No intra or extra axial fluid collections were seen. The calvarium demonstrate to be intact with no evidence for acute bony injuries. The visualized portions of the paranasal sinus es demonstrate opacification of the posterior right sphenoid sinus and orbits demonstrate to be clear . CT cervical spine: There is diffuse bony osteopenia. The alignment, of the vertebral bodies are su l. There is no evidence of fracture or subluxation. There is degenerative disc disease with anter ior and posterior osteophyte complex at C3/C4, C4/C5 C5/C6 and C6/C7. There is minimal anterolisthesi s of C3 over C4 from uncovertebral degenerative changes. There is no evidence for significant spinal canal narrowing and/or stenosis. There are uncovertebral degenerative changes C2-T1. There is no prev ertebral soft tissue swelling. Sagittal coronal reformatted images demonstrate no subluxation or [place] abnormalities. Chest: Lower neck/chest wall: Visualized thyroid gland and soft tissues are normal. No adenopathy. Lungs and airways: The lung parenchyma demonstrate to be clear. No evidence of airspace or interstiti al process. No significant pulmonary nodules and/or masses identified. No focal areas of consolidatio n. There is a calcified granuloma within the subpleural posterior segment right lower lobe. Airways: The trachea mainstem bronchus demonstrate to be unremarkable. Pleural: There are no pleural effusion. No evidence for pneumothorax. Hemidiaphragms are normally pos itioned. Mediastinum and lymph nodes: No significant mediastinal and/or hilar lymphadenopathy. The axillary re gions demonstrate to be clear. There is a moderate to large hiatal hernia. Heart: Normal heart size. No pericardial effusion. There are coronary artery calcifications. Thoracic aorta: There is minimal intimal aortic arch calcification with no evidence for aneurysm. Pulmonary arteries: The pulmonary arteries were not evaluated due to lack of IV contrast. Osseous structures and chest wall: The presence of a reverse the right shoulder arthroplasty limits e valuation. Visualized portions of the clavicles, left humeral head, bilateral scapulas, sternum, vert ebral bodies of the thoracic spine, spinous processes, bilateral ribs demonstrate no definitive signi ficant displaced fractures. Abdomen and pelvis: Liver: Grossly the unopacified liver demonstrates to be normal, no focal lesions identified. Gallbladder: Surgical clips within the gallbladder fossa corresponding to previous cholecystectomy. N o significant biliary duct dilatation. Adrenal glands: Grossly the unopacified adrenal glands demonstrate to be normal. Pancreas: The pancreas isn't demonstrated to be somewhat decreased in size. Spleen: Grossly the unopacified spleen demonstrate to be within normal limits. Kidneys: Grossly the unopacified kidneys demonstrate to be within normal limits. No evidence for ne phrolithiasis and/or hydronephrosis. There are no significant cystic lesions. GI: Grossly the unopacified stomach, small bowel and large bowel demonstrate to be within normal limi ts. There is possible surgical changes within the midline small bowel loops along the pelvis. No evid ence for bowel dilatation and/or free air. The appendix was not visualized. The left-sided colon/sigm oid colon demonstrates presence of minimal diverticulosis. There is fecal stasis. : Grossly the urinary bladder demonstrate to be unremarkable. Genitalia: The uterus is absent. There are no adnexal masses. Abdominal aorta: The aorta demonstrate demonstrated presence of atherosclerotic disease extending int o the aortic bifurcation and iliac arteries. Retroperitoneum: There is no retroperitoneal lymphadenopathy. There is no evidence for ascites and/or retroperitoneal hemorrhage. Bones: The bones demonstrate to be demineralized with minimal degenerative changes throughout the lum bar spine with anterior spondylosis. The presence of total left hip arthroplasty limits evaluation of the pelvis. No definitive significant fractures and/or compression deformities. Soft tissues: The rest of the soft tissue and bony structures are within normal limits. IMPRESSION: No evidence for acute traumatic injury to the head. Mild brain atrophy with minimal periventricular white matter changes of microvascular ischemia. No evidence for acute fracture or subluxation of the cervical spine. Moderate to large hiatal hernia. Coronary artery calcifications. Status post cholecystectomy and hysterectomy. Probable surgical changes within the midline small bowel loops along the pelvis. Minimal diverticulosis with no evidence for diverticulitis. No evidence for acute traumatic injury within the chest, abdomen, or pelvis on this noncontrast CT ex amination. Status post total left hip arthroplasty which limits evaluation of the pelvis. No definitive signific ant fractures and/or compression deformities. Electronically signed by: Ricardo Calvin MD 05/23/2023 02:15 AM GENERAL OPERATIONS MANAGER Due to temporary technical issues with the PACS/Fluency reporting system, reports are being signed by the in house radiologists without review as a courtesy to insure prompt reporting. The interpreting radiologist is fully responsible for the content of the report.
== END ==
LOC: ER 00:10
DX: S70.01XA Contusion of right hip, initial encounter (principal); S50.811A Abrasion of right forearm, initial encounter; S40.812A Abrasion of left upper arm, initial encounter; R51.9 Headache, unspecified; R10.2 Pelvic and perineal pain; W18.30XA Fall on same level, unspecified, initial encounter; Y92.009 Unspecified place in unspecified non-institutional (private) residence as the place of occurrence of the external cause; Z88.5 Allergy status to narcotic agent; Z91.048 Other nonmedicinal substance allergy status
CPT/HCPCS: 85025; 80048; 36415; 86900; 86850; 86901; 70450; 71250; 72125; 73552; J2765; J3010 ×2; J2405; 90471; 96374; 96375; 99285

== ENCOUNTER → 2023-08-14 | Emergency (ER) | payer OTHER, BC ==
--- NOTE | 2023-08-14 21:07 | RAD REPORT ---
EXAM DESCRIPTION: CT - Soft Tissue Neck Wo Contr CLINICAL HISTORY: foreign body sensation in the throat Neck pain and swelling COMPARISON: Head C Spine Mpr Wo Con dated 05/09/2023; Head C Spine Mpr Wo Con dated 08/18/[address] scans are performed using dose optimization technique as appropriate and may includ e automated exposure control or mA/KV adjustment according to patient size. FINDINGS: Nasopharyngeal tissues are normal in appearance. Fossa Rosenmller are normal. Parapharyngeal fat triangles are symmetric. Tongue base structures are normal. Epiglottis and aryepiglottic folds are normal. Piriform sinuses are well aerated. The vocal cords are normal in appearance. Salivary glands are normal in appearance. Upper lung cao are clear. Included intracranial contents are unremarkable. No radiopaque foreign body. IMPRESSION: Negative examination.
--- NOTE | 2023-08-14 22:06 | EDPHYS ---
Physician Documentation [facility] Name: Yady Diggs Age: 88 yrs Sex: Female : 1935 Arrival Date: 08/14/2023 Time: 20:00 Bed IW1 Private MD: Lula Pena C ED Physician Glen Martinez HPI: 08/13 20:05 This 88 yrs old Female presents to ER via Unassigned with complaints of sp4 Foreign Body In Throat. Historical: - Allergies: 20:25 Morphine; nj1 20:25 Iodine; nj1 20:25 adhesive tape; nj1 - PMHx: 20:25 AFIB (Unknown); diabetes mellitus; GERD; Glaucoma; High Cholesterol; Hypertension; nj1 Hypothyroidism; neuropathy; - PSHx: 20:25 Appendectomy; section; Cholecystectomy; hysterectomy; Tonsillectomy; nj1 - Immunization history:: Client reports receiving the 2nd dose of the Covid vaccine. - Social history:: Smoking status: Patient denies any tobacco usage or history of. Vital Signs: 20:22 BP 181 / 79; Pulse 68; Resp 18; Temp 97.8(O); Pulse Ox 98% ; nj1 22:25 BP 176 / 77; Pulse 68; Resp 17 S; Temp 97.5(TE); Pulse Ox 99% on R/A; lg3 MDM: 20:31 Patient medically screened. sp4 21:55 ED course: EXAM DESCRIPTION: CT - Soft Tissue Neck Wo Contr CLINICAL HISTORY: foreign sp4 body sensation in the throat Neck pain and swelling COMPARISON: Head C Spine Mpr Wo Con dated 05/09/2023; Head C Spine Mpr Wo Con dated 08/18/[address] scans are performed using dose optimization technique as appropriate and may include automated exposure control or mA/KV adjustment according to patient size. FINDINGS: Nasopharyngeal tissues are normal in appearance. Fossa Rosenm?ller are normal. Parapharyngeal fat triangles are symmetric. Tongue base structures are normal. Epiglottis and aryepiglottic folds are normal. Piriform sinuses are well aerated. The vocal cords are normal in appearance. Salivary glands are normal in appearance. Upper lung cao are clear. Included intracranial contents are unremarkable. No radiopaque foreign body. IMPRESSION: Negative examination.. 08/13 20:51 Order name: Soft Tissue Neck Wo Contr EDMS Administered Medications: No medications were administered Disposition Summary: 08/14/23 22:06 Discharge Ordered Problem: new sp4 Symptoms: have improved sp4 Condition: Stable sp4 Diagnosis - Esophagitis, unspecified sp4 - Pill esophagitis, Sensation of foreign body in the throat sp4 Followup: sp4 - With: Radha Redding MD - When: 7 - 10 days - Reason: Recheck today's complaints Discharge Instructions: - Discharge Summary Sheet sp4 - Esophagitis sp4 Forms: - Patient Portal Instructions sp4 Signatures: Dispatcher [employer] EDMS Glen Martinez MD MD sp4 Yulisa Melchor RN RN nj1 Corrections: (The following items were deleted from the chart) 20:51 20:33 Soft Tissue Neck W/Contr+CT.RAD.BRZ ordered. EDMS EDMS
--- NOTE | 2023-08-14 22:06 | ER ---
Nurse's Notes [facility] Name: Yady Diggs Age: 88 yrs Sex: Female : 1935 Arrival Date: 08/14/2023 Time: 20:00 Bed IW1 Private MD: Lula Pena C Diagnosis: Esophagitis, unspecified;Pill esophagitis, Sensation of foreign body in the throat Presentation: 08/13 20:22 Chief complaint: Patient states: "I have a capsule stocked in my throat" for 2 weeks. nj1 Half of a magnesium pill. Coronavirus screen: Vaccine status: Patient reports receiving the 2nd dose of the covid vaccine. Ebola Screen: Patient denies travel to an Ebola-affected area in the 21 days before illness onset. Initial Sepsis Screen: Does the patient meet any 2 criteria? No. Patient's initial sepsis screen is negative. Does the patient have a suspected source of infection? No. Patient's initial sepsis screen is negative. Risk Assessment: Do you want to hurt yourself or someone else? Patient reports no desire to harm self or others. Onset of symptoms was August 2023. 20:22 Method Of Arrival: Ambulatory nj1 20:22 Acuity: NILAY 3 nj1 Historical: - Allergies: 20:25 Morphine; nj1 20:25 Iodine; nj1 20:25 adhesive tape; nj1 - PMHx: 20:25 AFIB (Unknown); diabetes mellitus; GERD; Glaucoma; High Cholesterol; Hypertension; nj1 Hypothyroidism; neuropathy; - PSHx: 20:25 Appendectomy; section; Cholecystectomy; hysterectomy; Tonsillectomy; nj1 - Immunization history:: Client reports receiving the 2nd dose of the Covid vaccine. - Social history:: Smoking status: Patient denies any tobacco usage or history of. Screenin:25 [facility] ED Fall Risk Assessment (Adult) History of falling in the last 3 months, lg3 including since admission No falls in past 3 months (0 pts). Abuse screen: Denies threats or abuse. Denies injuries from another. Nutritional screening: No deficits noted. Tuberculosis screening: No symptoms or risk factors identified. [place] Swallow Protocol Brief Cognitive Screen What is your name? Normal, Where are you right now? Normal, What year is it? Normal. Oral Mechanism Examination Facial Symmetry: Normal, Motion: Normal, Lip Closure: Normal, Oral Mechanism Result: Normal. 3 oz Water Swallow Challenge: Pt able to drink all water without stopping, coughing, choking or throat clearing: Yes Result: MICA VARGAS Notified: Glen Martinez MD. Assessment: 22:25 General: Appears in no apparent distress. comfortable, Behavior is calm, cooperative. lg3 Pain: Denies pain. Neuro: No deficits noted. Weathers Agitation-Sedation Scale (RASS): 0 - Alert and Calm Level of Consciousness is awake, alert, obeys commands, Oriented to person, place, time, situation. Cardiovascular: No deficits noted. Denies chest pain, shortness of breath, Capillary refill < 3 seconds Clubbing of nail beds is absent JVD is absent Patient's skin is warm and dry. Respiratory: No deficits noted. Airway is patent Respiratory effort is even, unlabored, Respiratory pattern is regular, symmetrical, Breath sounds are clear bilaterally. GI: No deficits noted. No signs and/or symptoms were reported involving the gastrointestinal system. Abdomen is round non-distended, obese. : No deficits noted. No signs and/or symptoms were reported regarding the genitourinary system. EENT: No deficits noted. Oral mucosa is moist. Throat is clear with gag reflex present. Derm: No deficits noted. No signs and/or symptoms reported regarding the dermatologic system. Skin is intact, is healthy with good turgor, Skin is dry, Skin is normal, Skin temperature is warm. Musculoskeletal: No deficits noted. No signs and/or symptoms reported regarding the musculoskeletal system. Circulation, motion, and sensation intact. Range of motion: intact in all extremities. Vital Signs: 20:22 BP 181 / 79; Pulse 68; Resp 18; Temp 97.8(O); Pulse Ox 98% ; nj1 22:25 BP 176 / 77; Pulse 68; Resp 17 S; Temp 97.5(TE); Pulse Ox 99% on R/A; lg3 ED Course: 20:03 Patient arrived in ED. mr 20:03 Lula Pena MD is Private Physician. mr 20:05 Glen Martinez MD is Attending Physician. sp4 20:25 Triage completed. nj1 20:27 Arm band placed on right wrist. nj1 20:51 Soft Tissue Neck Wo Contr In Process Unspecified. EDMS 22:04 Radha Redding MD is Referral Physician. sp4 22:25 Patient has correct armband on for positive identification. lg3 22:25 No provider procedures requiring assistance completed. Patient did not have IV access lg3 during this emergency room visit. Patient maintains SpO2 saturation greater than 95% on room air. Administered Medications: No medications were administered Medication: 22:25 VIS not applicable for this client. lg3 Outcome: 22:06 Discharge ordered by . sp4 22:25 Discharged to home via wheelchair, with significant other, lg3 22:25 Condition: stable 22:25 Discharge instructions given to patient, Instructed on discharge instructions, follow up and referral plans. Demonstrated understanding of instructions, follow-up care, 22:32 Patient left the ED. lg3 Signatures: Dispatcher [employer] EDMS Valeria Lazcano, Reg Reg mr Sonja Azar, RN RN lg3 Glen Martinez MD MD sp4 Yulisa Melchor RN RN nj1
[2023-08-14 23:21] VITALS: BP 176/77; TEMP 97.5; O2SAT 99
== END ==
LOC: ER 20:00
DX: K20.80 Other esophagitis without bleeding (principal); Z88.5 Allergy status to narcotic agent; Z91.048 Other nonmedicinal substance allergy status
CPT/HCPCS: 70490

== ENCOUNTER 2023-09-04 16:13 | Emergency (ER) | payer OTHER, BC ==
[2023-09-04] MEDS ORDERED: MAGNES/ALUMIN/SIMET 30ML UCUP ONE (18:46)
[2023-09-04 19:05] LABS: Absolute Basophils 0.1 K/uL (0-0.5); Absolute Eosinophils 0.2 K/uL (0-0.5); Absolute Lymphocytes (CBC) 3.1 K/uL (0.7-4.9); Absolute Monocytes 0.5 K/uL (0.1-1.3); Absolute Neutrophil 2.6 K/uL (1.8-8.0); Basophils % 1.2 % (0-1.3); Eosinophils % 2.4 % (0-4.4); Lymphocytes % 47.8 % (15.3-44.8); MCH 28.7 pg (27.0-35.0); MCHC 33.3 g/dL (32.0-36.0); MCV 86.3 fL (80-100); MPV 7.2 fL (7.6-11.3); Monocytes % 7.9 % (3.3-12.3); Neutrophils % 40.7 % (41.7-73.7); Platelets 200 thou/uL (152-406); RBC Red Blood Cell Count 4.17 M/uL (3.86-4.86); Red Cell Distribution Width 13.9 % (12.1-15.2)
[2023-09-04 19:24] LABS: Albumin 3.4 g/dL (3.4-5.0); Albumin/Globulin Ratio 0.9 (1.1-1.8); Anion Gap 8.1 mEq/L (5.0-15.0); Bilirubin Total 0.3 mg/dL (0.2-1.0); Globulin 3.6 g/dL (2.3-3.5); Potassium 4.1 mEq/L (3.5-5.1); Troponin High Sensitivity 8.4 pg/mL (<58.9)
--- NOTE | 2023-09-04 19:29 | RAD REPORT ---
EXAM DESCRIPTION: CT - Abdomen Pelvis Wo Contrast - 09/04/2023 7:20 pm CLINICAL HISTORY: Abdominal pain. ABD PAIN COMPARISON: Abdomen Pelvis Wo Contrast dated 05/06/2023; Soft Tissue Neck Wo Contr dated 09/04/2023 TECHNIQUE: CT imaging of the abdomen and pelvis was performed without contrast. Solid organ, bowel a nd vascular assessment is limited due to lack of IV and oral contrast. All CT scans are performed using dose optimization technique as appropriate and may include automated exposure control or mA/KV adjustment according to patient size. FINDINGS: The lower lung cao are clear.Moderate axial hiatal hernia. Cholecystectomy. The liver, spleen, pancreas, adrenal glands and kidneys are within normal limits for a limited non-co ntrast examination.Aortoiliac atherosclerosis. Significant stool throughout the colon. Sigmoid divert iculosis coli without diverticulitis. No bowel obstruction, free air, free fluid or abscess. The appendix is normal. The osseous structures are within normal limits. IMPRESSION: No acute intra-abdominal or pelvic findings. A limited non-contrast examination was performed as detailed.
--- NOTE | 2023-09-04 19:32 | RAD REPORT ---
EXAM DESCRIPTION: CT - Soft Tissue Neck Wo Contr CLINICAL HISTORY: fb sensation Pain and swelling. COMPARISON: Soft Tissue Neck Wo Contr dated 08/14/2023; Head C Spine Mpr Wo Con dated 05/09/2023; Head C Spine Mpr Wo Con dated 08/18/[address] scans are performed using dose optimization technique as appropriate and may includ e automated exposure control or mA/KV adjustment according to patient size. FINDINGS: Nasopharyngeal tissues are normal in appearance. Fossa Rosenmller are normal. Parapharyngeal fat triangles are symmetric. Tongue base structures are normal. Epiglottis and aryepiglottic folds are normal. Piriform sinuses are well aerated. The vocal cords are normal in appearance. Normal thyroid. No radiopaque foreign body visible. Mild atherosclerosis carotid bulbs. Salivary glands are normal in appearance. Moderate multilevel cervical degenerative changes. Upper lung cao are clear. Included intracranial contents are unremarkable. IMPRESSION: Negative examination.
[2023-09-04 21:00] LABS: Specific Gravity 1.012 (1.005-1.030); Sqamous Epithelial <5 /HPF (None Seen); Urine Bacteria None Seen /HPF (<20); Urine Bilirubin NEGATIVE (Negative); Urine Blood 1+ (Negative); Urine Clarity Clear (Clear); Urine Color Light-Yellow (Yellow); Urine Culture Reflex Order NOT NEEDED; Urine Glucose NEGATIVE (Negative); Urine Ketones NEGATIVE (Negative); Urine Microscopic Reflex YN ORDER UMIC; Urine Nitrite NEGATIVE (Negative); Urine Protein TRACE (Negative); Urine RBC <5 /HPF (None Seen); Urine Urobilinogen Normal (Normal); Urine pH 7.5 (5.0-7.0)
--- NOTE | 2023-09-04 21:18 | ER ---
Nurse's Notes [facility] Name: Yady Diggs Age: 88 yrs Sex: Female : 1935 Arrival Date: 09/04/2023 Time: 16:13 Bed 5 Private MD: Diagnosis: Pharyngeal irritation, urinary bladder pain, dysuria. Presentation: 09/03 16:30 Chief complaint: Patient states: Feels like something is stuck in her throat for about nj1 3 weeks. Dysuria for a little over a week. Vomiting for the last 3 days. Denies diarrhea. Coronavirus screen: Vaccine status:. Ebola Screen: Patient denies travel to an Ebola-affected area in the 21 days before illness onset. Initial Sepsis Screen: Does the patient meet any 2 criteria? No. Patient's initial sepsis screen is negative. Does the patient have a suspected source of infection? No. Patient's initial sepsis screen is negative. Risk Assessment: Do you want to hurt yourself or someone else? Patient reports no desire to harm self or others. Onset of symptoms was August 2023. 16:30 Method Of Arrival: Wheelchair nj1 16:30 Acuity: NILAY 3 nj1 Triage Assessment: 16:34 General: Appears in no apparent distress. comfortable, Behavior is calm, cooperative, nj1 appropriate for age. Pain: Denies pain. Historical: - Allergies: 16:33 adhesive tape; nj1 16:33 Iodine; nj1 16:33 Morphine; nj1 - PMHx: 16:33 AFIB (Unknown); diabetes mellitus; GERD; Glaucoma; High Cholesterol; Hypertension; nj1 Hypothyroidism; neuropathy; Parkinson's disease; - PSHx: 16:33 Appendectomy; section; Cholecystectomy; hysterectomy; Tonsillectomy; Partial nj1 colectomy; Shoulder replacement, right; Hip replacement, left; - Immunization history:: Client reports receiving the 2nd dose of the Covid vaccine. - Infectious Disease History:: Denies. - Social history:: Smoking status: Patient denies any tobacco usage or history of. - Family history:: not pertinent. Screenin:00 [facility] ED Fall Risk Assessment (Adult) History of falling in the last 3 months, vc1 including since admission No falls in past 3 months (0 pts) Confusion or Disorientation No (0 pts) Intoxicated or Sedated No (0 pts) Impaired Gait No (0 pts) Mobility Assist Device Used No (0 pt) Altered Elimination No (0 pt) Score/Fall Risk Level 0 - 2 = Low Risk Oriented to surroundings, Maintained a safe environment, Educated pt \T\ family on fall prevention, incl call for assistance when getting out of bed. Abuse screen: Denies threats or abuse. Nutritional screening: No deficits noted. Tuberculosis screening: No symptoms or risk factors identified. Assessment: 19:00 General: Appears in no apparent distress. uncomfortable, Behavior is calm, cooperative, vc1 appropriate for age. Pain: Complains of pain in throat Pain currently is 2 out of 10 on a pain scale. Also complains of nausea. Neuro: Level of Consciousness is awake, alert, obeys commands, Oriented to person, place, time, situation, Appropriate for age. Cardiovascular: No deficits noted. Respiratory: Airway is patent Respiratory effort is even, unlabored, Respiratory pattern is regular, symmetrical. GI: Abdomen is non-distended, Reports nausea, vomiting. : No deficits noted. No signs and/or symptoms were reported regarding the genitourinary system. EENT: Reports feels like something is in throat. Derm: No deficits noted. No signs and/or symptoms reported regarding the dermatologic system. Musculoskeletal: No deficits noted. No signs and/or symptoms reported regarding the musculoskeletal system. 20:04 Reassessment: Patient appears in no apparent distress at this time. No changes from vc1 previously documented assessment. Patient and/or family updated on plan of care and expected duration. Pain level reassessed. Patient is alert, oriented x 3, equal unlabored respirations, skin warm/dry/pink. 21:39 Reassessment: Patient appears in no apparent distress at this time. Patient and/or lg3 family updated on plan of care and expected duration. Pain level reassessed. Patient is alert, oriented x 3, equal unlabored respirations, skin warm/dry/pink. Patient states feeling better. Patient states symptoms have improved. Vital Signs: 16:30 BP 117 / 66; Pulse 65; Resp 18; Temp 98.8(O); Pulse Ox 99% ; Weight 62.14 kg (R); nj1 Height 5 ft. 1 in. ; 20:04 BP 165 / 62; Pulse 63; Resp 15; Pulse Ox 92% ; vc1 21:37 BP 168 / 60; Pulse 66; Resp 11 S; Temp 98.4(O); Pulse Ox 98% on R/A; lg3 16:30 Body Mass Index 25.89 (62.14 kg, 154.94 cm) nj1 ED Course: 16:16 Patient arrived in ED. mg5 16:19 Lalo Sterling MD is Attending Physician. rt 16:33 Triage completed. nj1 16:34 Arm band placed on right wrist. nj1 18:51 CBC with Diff Sent. ko1 18:51 CMP Sent. ko1 18:51 Lipase Sent. ko1 18:51 Troponin High Sensitivity Sent. ko1 19:00 Patient has correct armband on for positive identification. Bed in low position. Call vc1 light in reach. Report received from JAM Massey and RUBEN RN. media monitor on. Pulse ox on. NIBP on. 19:22 CT Abd/Pelvis - Without Contrast In Process Unspecified. EDMS 19:22 Soft Tissue Neck Wo Contr In Process Unspecified. EDMS 20:02 Maricruz De La Rosa RN is Primary Nurse. vc1 20:44 Urinalysis w/ reflexes Sent. lg3 20:50 Attending Physician role handed off by Lalo Sterling MD sp4 20:50 Glen Martinez MD is Attending Physician. sp4 21:16 Kiara Amado MD is Referral Physician. sp4 21:38 No provider procedures requiring assistance completed. IV discontinued, intact, lg3 bleeding controlled, No redness/swelling at site. Pressure dressing applied. Administered Medications: 18:46 Drug: Alum-Mag Hydroxide-Simeth PO Suspension (200 mg-200 mg-20 mg/5 mL) 30 ml PO once ko1 Route: PO; 20:08 Follow up: Response: No adverse reaction; Marked relief of symptoms vc1 Medication: 20:07 VIS not applicable for this client. vc1 Outcome: 21:17 Discharge ordered by . sp4 21:38 Discharged to home via wheelchair, with family, lg3 21:38 Condition: stable 21:38 Discharge instructions given to patient, Instructed on discharge instructions, follow up and referral plans. Demonstrated understanding of instructions, follow-up care, 21:39 Patient left the ED. lg3 Signatures: Dispatcher [employer] Sonja Stark RN RN lg3 Maricruz De La Rosa RN RN vc1 Shilap Blake, RN RN ko1 Lalo Sterling MD MD rt Glen Martinez MD MD sp4 Yulisa Melchor, RN RN nj1 [place] Rodas mg5
--- NOTE | 2023-09-04 21:18 | EDPHYS ---
Physician Documentation [facility] Name: Yady Diggs Age: 88 yrs Sex: Female : 1935 Arrival Date: 09/04/2023 Time: 16:13 Bed 5 Private MD: ED Physician Glen Martinez HPI: 09/03 20:53 This 88 yrs old Female presents to ER via Wheelchair with complaints of rt Nausea/Vomiting, Bladder Pain, Foreign Body In Throat - ?. 20:53 For the past 3 weeks, the patient reports that she has foreign body sensation to her rt throat. States that she is able to keep liquids down. Was seen in the ED, as not followed up since then. Reports nausea, vomiting. Reports dysuria starting today. Denies other acute complaints, symptoms are moderate severity, no other aggravating or alleviating factors.. Historical: - Allergies: 16:33 adhesive tape; nj1 16:33 Iodine; nj1 16:33 Morphine; nj1 - PMHx: 16:33 AFIB (Unknown); diabetes mellitus; GERD; Glaucoma; High Cholesterol; Hypertension; nj1 Hypothyroidism; neuropathy; Parkinson's disease; - PSHx: 16:33 Appendectomy; section; Cholecystectomy; hysterectomy; Tonsillectomy; Partial nj1 colectomy; Shoulder replacement, right; Hip replacement, left; - Immunization history:: Client reports receiving the 2nd dose of the Covid vaccine. - Infectious Disease History:: Denies. - Social history:: Smoking status: Patient denies any tobacco usage or history of. - Family history:: not pertinent. ROS: 20:53 Constitutional: Negative for fever, chills, and weight loss, Cardiovascular: Negative rt for chest pain, palpitations, and edema, Respiratory: Negative for shortness of breath, cough, wheezing, and pleuritic chest pain, MS/Extremity: Negative for injury and deformity, Skin: Negative for injury, rash, and discoloration, Neuro: Negative for headache, weakness, numbness, tingling, and seizure, 20:53 Abdomen/GI: Positive for nausea and vomiting, 20:53 : Positive for burning with urination, Negative for hematuria, Exam: 20:53 Constitutional: This is a well developed, well nourished patient who is awake, alert, rt and in no acute distress. Head/Face: Normocephalic, atraumatic. Chest/axilla: Normal chest wall appearance and motion. Nontender with no deformity. No lesions are appreciated. Cardiovascular: Regular rate and rhythm with a normal S1 and S2. No gallops, murmurs, or rubs. Normal PMI, no JVD. No pulse deficits. Respiratory: Lungs have equal breath sounds bilaterally, clear to auscultation and percussion. No rales, rhonchi or wheezes noted. No increased work of breathing, no retractions or nasal flaring. Abdomen/GI: Soft, non-tender, with normal bowel sounds. No distension or tympany. No guarding or rebound. No evidence of tenderness throughout. Skin: Warm, dry with normal turgor. Normal color with no rashes, no lesions, and no evidence of cellulitis. MS/ Extremity: Pulses equal, no cyanosis. Neurovascular intact. Full, normal range of motion. Neuro: Awake and alert, GCS 15, oriented to person, place, time, and situation. Cranial nerves II-XII grossly intact. Motor strength 5/5 in all extremities. Sensory grossly intact. Cerebellar exam normal. Normal gait. 20:53 ECG was reviewed by the Attending Physician. Vital Signs: 16:30 BP 117 / 66; Pulse 65; Resp 18; Temp 98.8(O); Pulse Ox 99% ; Weight 62.14 kg (R); nj1 Height 5 ft. 1 in. ; 20:04 BP 165 / 62; Pulse 63; Resp 15; Pulse Ox 92% ; vc1 21:37 BP 168 / 60; Pulse 66; Resp 11 S; Temp 98.4(O); Pulse Ox 98% on R/A; lg3 16:30 Body Mass Index 25.89 (62.14 kg, 154.94 cm) nj1 MDM: 17:18 Patient medically screened. rt 21:15 Differential diagnosis: Nonspecific abd pain, gastritis, diverticulitis, viral sp4 gastroenteritis, gastroenteritis. Data reviewed: vital signs, nurses notes, old medical records, lab test result(s), radiologic studies, CT scan. Consideration of Admission/Observation Escalation of care including admission/observation considered. ED course: EXAM DESCRIPTION: CT - Abdomen Pelvis Wo Contrast - 09/04/2023 7:20 pm CLINICAL HISTORY: Abdominal pain. ABD PAIN COMPARISON: Abdomen Pelvis Wo Contrast dated 05/06/2023; Soft Tissue Neck Wo Contr dated 09/04/2023 TECHNIQUE: CT imaging of the abdomen and pelvis was performed without contrast. Solid organ, bowel and vascular assessment is limited due to lack of IV and oral contrast. All CT scans are performed using dose optimization technique as appropriate and may include automated exposure control or mA/KV adjustment according to patient size. FINDINGS: The lower lung cao are clear.Moderate axial hiatal hernia. Cholecystectomy. The liver, spleen, pancreas, adrenal glands and kidneys are within normal limits for a limited noncontrast examination.Aortoiliac atherosclerosis. Significant stool throughout the colon. Sigmoid diverticulosis coli without diverticulitis. No bowel obstruction, free air, free fluid or abscess. The appendix is normal. The osseous structures are within normal limits. IMPRESSION: No acute intra-abdominal or pelvic findings. A limited non-contrast examination was performed as detailed. . ED course: EXAM DESCRIPTION: CT - Soft Tissue Neck Wo Contr CLINICAL HISTORY: fb sensation Pain and swelling. COMPARISON: Soft Tissue Neck Wo Contr dated 08/14/2023; Head C Spine Mpr Wo Con dated 05/09/2023; Head C Spine Mpr Wo Con dated 08/18/[address] scans are performed using dose optimization technique as appropriate and may include automated exposure control or mA/KV adjustment according to patient size. FINDINGS: Nasopharyngeal tissues are normal in appearance. Fossa Rosenm?ller are normal. Parapharyngeal fat triangles are symmetric. Tongue base structures are normal. Epiglottis and aryepiglottic folds are normal. Piriform sinuses are well aerated. The vocal cords are normal in appearance. Normal thyroid. No radiopaque foreign body visible. Mild atherosclerosis carotid bulbs. Salivary glands are normal in appearance. Moderate multilevel cervical degenerative changes. Upper lung cao are clear. Included intracranial contents are unremarkable. IMPRESSION: Negative examination. . 09/03 17:27 Order name: CBC with Diff; Complete Time: 19:38 rt 09/03 17:27 Order name: CMP; Complete Time: 19:38 rt 09/03 17:27 Order name: Lipase; Complete Time: 19:38 rt 09/03 17:27 Order name: Urinalysis w/ reflexes; Complete Time: 21:04 rt 09/03 17:27 Order name: Troponin High Sensitivity; Complete Time: 19:38 rt 09/03 17:27 Order name: CT Abd/Pelvis - Without Contrast; Complete Time: 19:38 rt 09/03 19:09 Order name: Soft Tissue Neck Wo Contr; Complete Time: 19:38 EDMS 09/03 17:27 Order name: Labs collected and sent; Complete Time: 18:51 rt 09/03 17:27 Order name: EKG - Nurse/Tech; Complete Time: 20:00 rt EC:53 Rate is 60 beats/min. Rhythm is regular, 1st Degree Block with Left bundle branch rt block, Right bundle branch block. QRS [place] is Normal. [place] interval is prolonged at 232 msec. QRS interval is normal. QT interval is normal. No Q waves. Administered Medications: 18:46 Drug: Alum-Mag Hydroxide-Simeth PO Suspension (200 mg-200 mg-20 mg/5 mL) 30 ml PO once ko1 Route: PO; 20:08 Follow up: Response: No adverse reaction; Marked relief of symptoms vc1 Disposition Summary: 09/04/23 21:17 Discharge Ordered Problem: new sp4 Symptoms: have improved sp4 Condition: Stable sp4 Diagnosis - Pharyngeal irritation, urinary bladder pain, dysuria. sp4 Followup: sp4 - With: Kiara Amado MD - When: 7 - 10 days - Reason: Recheck today's complaints Discharge Instructions: - Discharge Summary Sheet sp4 - Dysuria sp4 Forms: - Patient Portal Instructions sp4 Signatures: Dispatcher [employer] EDMS Shilpa Blake RN RN ko1 Lalo Sterling MD MD rt Glen Martinez MD MD sp4 Yulisa Melchor RN RN nj1 Maricruz De La Rosa RN vc1 Corrections: (The following items were deleted from the chart) 19: 17:27 Soft Tissue Neck W/Contr+CT.RAD.BRZ ordered. EDMS EDMS 21:37 17:27 IV Saline Lock ordered. rt lg3
[2023-09-04 23:17] VITALS: BP 168/60; TEMP 98.4; O2SAT 98
--- NOTE | 2023-09-06 15:43 | EKG ---
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
== END 2023-09-04 21:39 | disposition home or self-care (01) ==
LOC: ER 16:13
DX: J39.2 Other diseases of pharynx (principal); R30.0 Dysuria; R30.9 Painful micturition, unspecified; R11.2 Nausea with vomiting, unspecified; Z88.5 Allergy status to narcotic agent; Z88.8 Allergy status to other drugs, medicaments and biological substances; Z91.048 Other nonmedicinal substance allergy status
CPT/HCPCS: 36415; 70490; 74176; 80053; 81001; 83690; 84484; 85025; 93005; 99284

== ENCOUNTER 2024-04-12 10:01 | Emergency (ER) | payer BC, OTHER ==
[2024-04-12 10:41] LABS: Absolute Basophils 0.1 K/uL (0-0.5); Absolute Eosinophils 0.1 K/uL (0-0.5); Absolute Lymphocytes (CBC) 1.3 K/uL (0.7-4.9); Absolute Monocytes 0.5 K/uL (0.1-1.3); Absolute Neutrophil 4.3 K/uL (1.8-8.0); Eosinophils % 1.3 % (0-4.4); Hematocrit 32.7 % (36.0-45.0); Hemoglobin 10.8 g/dL (12.0-15.0); Lymphocytes % 21.3 % (15.3-44.8); MCH 28.8 pg (27.0-35.0); MCV 87.1 fL (80-100); MPV 7.8 fL (7.6-11.3); Monocytes % 7.7 % (3.3-12.3); Neutrophils % 68.7 % (41.7-73.7); Platelets 141 thou/uL (152-406); RBC Red Blood Cell Count 3.76 M/uL (3.86-4.86); Red Cell Distribution Width 15.8 % (12.1-15.2)
[2024-04-12 10:54] LABS: Albumin 3.3 g/dL (3.4-5.0); Albumin/Globulin Ratio 1.1 (1.1-1.8); Bilirubin Direct 0.2 mg/dL (0-0.2); Bilirubin Indirect, Calculated 0.2 mg/dL (0.2-0.8); Bilirubin Total 0.4 mg/dL (0.2-1.0); Globulin 2.9 g/dL (2.3-3.5); Protein, Total 6.2 g/dL (6.4-8.2); Troponin High Sensitivity 7.7 pg/mL (<58.9)
--- NOTE | 2024-04-12 11:18 | RAD REPORT ---
EXAMINATION: CT HEAD WITHOUT CONTRAST CT CERVICAL SPINE WITHOUT CONTRAST CLINICAL INDICATION: Head and neck injury status post fall. Head and neck pain TECHNIQUE: Axial CT images from the skull base to the vertex without intravenous contrast. Axial CT i mages through the cervical spine were obtained without intravenous contrast. Sagittal and coronal reformatted images were created from the data set. Coronal and sagittal reformatted images were creat ed from the data set. One or more of the following dose reduction techniques were used: Automated exposure control, adjustment of the mA and/or kV according to patient size, and/or iterative reconstr uction. Unless otherwise specified, incidental findings do not require dedicated imaging follow-up. [id number]. Comparison: 2022 FINDINGS: Intracranial bleed not noted. Ventricles are normal in caliber. Mild low-density paraventricular, deep and subcortical white matter probably No extra-axial fluid collection. No fluid within the sinuses/mastoids mild to moderate mucoperiosteal thickening sphenoid sinus. No fracture or dislocation is seen involving the cervical spine. Mild chronic anterior subluxation C3 on C4 and C4 on C5. Spondylosis. IMPRESSION: No acute intracranial abnormality noted A cervical fracture is not seen. If the patient continues to have symptoms to suggest acute PHYSICAL THERAPY DIRECTOR/spinal pathology then MRI would be rec ommended
--- NOTE | 2024-04-12 11:29 | RAD REPORT ---
EXAMINATION: CT PELVIS WITHOUT CONTRAST CLINICAL INDICATION: Pelvic pain TECHNIQUE: CT pelvis was performed, without IV contrast, as per department protocol. Axial, sagittal and coronal reconstructions were obtained. One or more of the following dose reduction techniques were used: Automated exposure control, adjustment of the mA and/or kV according to patient size, and/ or iterative reconstruction. Unless otherwise specified, incidental findings do not require dedicated imaging follow-up. COMPARISON: No prior exam. FINDINGS: Left hip prosthesis. A moderately displaced fracture involves the superior left acetabulum. Fracture fragments 1 .1 cm. Moderately displaced fracture involves the left inferior pubic ramus. Old right pelvic fracture. No dislocation IMPRESSION: Moderately displaced fracture left acetabulum Moderately displaced fracture left inferior pubic ramus
--- NOTE | 2024-04-12 11:31 | RAD REPORT ---
Exam:Knee Left 3 View HISTORY: Left knee pain FINDINGS: No fracture or dislocation seen. The bones are osteoporotic. No significant joint effusion. If the patient continues to have symptoms to suggest an occult fracture, ligamentous or meniscal inju ry then MRI would be recommended
--- NOTE | 2024-04-12 11:32 | RAD REPORT ---
Exam:Foot Left 3 View CLINICAL HISTORY: Left foot pain FINDINGS: No fracture or dislocation seen
--- NOTE | 2024-04-12 12:33 | ER ---
Nurse's Notes [facility] Name: Yady Diggs Age: 88 yrs Sex: Female : 1935 Arrival Date: 04/12/2024 Time: 10:01 Bed 14 Private MD: Diagnosis: Mechanical fall;Displaced fracture of left acetabulum;Displaced fracture of left inferior pubic ramus Presentation: 04/12 09:58 Chief complaint: EMS states: FELL LAST NIGHT HELPED PATIENT BACK IN BED. PT db REPORTS HITTING HEAD, LEFT LEG PAIN, PELVIC PAIN. REPORTS HAVING INCREASED AMOUNT OF FALLS OVER LAST 9 MONTHS. DENIES TAKING BLOOD THINNERS. GIVEN FENTANYL 100 MCG, ZOFRAN 4MG BY EMS. Coronavirus screen: Client denies travel out of the [place] in the last 14 days. At this time, the client does not indicate any symptoms associated with coronavirus-19. Ebola Screen: Patient negative for fever greater than or equal to 101.5 degrees Fahrenheit, and additional compatible Ebola Virus Disease symptoms Patient denies exposure to infectious person. Patient denies travel to an Ebola-affected area in the 21 days before illness onset. No symptoms or risks identified at this time. Initial Sepsis Screen: Does the patient meet any 2 criteria? No. Patient's initial sepsis screen is negative. Does the patient have a suspected source of infection? No. Patient's initial sepsis screen is negative. Risk Assessment: Do you want to hurt yourself or someone else? Patient reports no desire to harm self or others. Onset of symptoms was April 12, 2024. Care prior to arrival: Medication(s) given: zofran 4 mg, FENTANYL 100 MCG IV initiated. 20 GA, in the left antecubital area. 09:58 Method Of Arrival: EMS: [facility] db 09:58 Acuity: NILAY 3 db 09:58 Mechanism of Injury: Fall from standing position. Trauma event details: Injury occurred db in the [facility]. 14:36 Care prior to arrival:. db Triage Assessment: 09:58 General: Appears in no apparent distress. comfortable, Behavior is calm, cooperative. db Pain: Complains of pain in head, pelvis, left leg and left foot. Neuro: Level of Consciousness is awake, alert, obeys commands, Oriented to person, place, time, situation. Respiratory: Airway is patent Respiratory effort is even, unlabored, Respiratory pattern is regular, symmetrical. Trauma Activation: Not Applicable Physician: ED Physician; Name: ; Notified At: ; Arrived At: Physician: General Surgeon; Name: ; Notified At: ; Arrived At: Physician: Radiology; Name: ; Notified At: ; Arrived At: Physician: Respiratory; Name: ; Notified At: ; Arrived At: Physician: Lab; Name: ; Notified At: ; Arrived At: Historical: - Allergies: : adhesive tape; db :58 Iodine; db :58 Morphine; db - PMHx: :58 diabetes mellitus; GERD; Glaucoma; High Cholesterol; Hypertension; neuropathy; db Hypothyroidism; Parkinson's disease; AFIB (Unknown); - PSHx: :58 Appendectomy; Cholecystectomy; section; hysterectomy; Partial colectomy; Hip db replacement; Tonsillectomy; Shoulder replacement; - Immunization history:: Adult Immunizations unknown. - Infectious Disease History:: Denies. - Immunization history: Last tetanus immunization: unknown. - Social history:: Smoking status: Patient denies any tobacco usage or history of. - Family history:: not pertinent. Screenin:09 [facility] ED Fall Risk Assessment (Adult) History of falling in the last 3 months, db including since admission Yes- fall prone (multiple falls) (3 pts) Confusion or Disorientation No (0 pts) Intoxicated or Sedated No (0 pts) Impaired Gait Yes (1 pt) Mobility Assist Device Used Yes (1 pt) Altered Elimination No (0 pt) Score/Fall Risk Level 3 or more points = High Risk Oriented to surroundings, Maintained a safe environment, Hourly rounding (assess needs \T\ fall precautionary measures) done, Utilized family, sitter, or virtual building supervisor as indicated. Abuse screen: Denies threats or abuse. Denies injuries from another. Nutritional screening: No deficits noted. Tuberculosis screening: No symptoms or risk factors identified. Primary Survey: :58 NO uncontrolled hemorrhage observed. A: The client is awake and alert. The airway is db patent. Breathing/Chest: Spontaneous respiratory effort, equal unlabored respirations, breath sounds clear bilaterally, regular pattern, symmetrical chest rise and fall. Respiratory effort: spontaneous, unlabored. Circulation: No external hemorrhage present. Regular and strong central pulse, skin warm/dry/normal color. Disability Client is alert. Exposure/Environment: A warming method has been applied: A warm blanket has been provided to the patient. Reassessment Alertness and Airway: Awake and alert. The airway is patent. Breathing: Spontaneous respiratory effort, equal unlabored respirations, breath sounds clear bilaterally, regular pattern with symmetrical chest rise and fall. Circulation: No external hemorrhage noted. Regular and strong central pulse, skin warm/dry/normal color. Disability: Alert. Assessment: 09:58 Reassessment: Patient appears in no apparent distress at this time. SEE TRIAGE FOR db INITIAL ASSESSMENT. 11:08 Reassessment: Patient appears in no apparent distress at this time. Patient and/or db family updated on plan of care and expected duration. Pain level reassessed. Patient is alert, oriented x 3, equal unlabored respirations, skin warm/dry/pink. General: Appears in no apparent distress. comfortable, Behavior is calm, cooperative, appropriate for age. 12:00 Neuro: Level of Consciousness is awake, alert, obeys commands, Oriented to person, db place, time, situation. 13:15 Reassessment: Reassessment: PATIENT CHANGED. NOTED URINE IN BRIEF. PLACED ON PURWICK. db 13:25 Reassessment: Patient appears in no apparent distress at this time. Patient and/or db family updated on plan of care and expected duration. Pain level reassessed. Patient states symptoms have improved. Respiratory: Airway is patent Respiratory effort is even, unlabored, Respiratory pattern is regular, symmetrical. 13:31 Reassessment: REPORT GIVEN TO JAM MANN PT GOING TO [address]. db 14:25 Reassessment: Patient appears in no apparent distress at this time. Patient and/or db family updated on plan of care and expected duration. Pain level reassessed. Patient is alert, oriented x 3, equal unlabored respirations, skin warm/dry/pink. EMS ARRIVED AND ASSISTED WITH PATIENT TRANSFER TO EMS STRETCHER. REPORT GIVEN. TRANSFER PAPERWORK GIVEN TO EMS. PATIENT AOX3. Vital Signs: 09:58 BP 125 / 52; Pulse 70; Resp 16; Temp 98.7(O); Pulse Ox 99% on 2 lpm NC; Weight 63.5 kg; db Height 5 ft. 1 in. ; Pain 5/10; 10:15 BP 143 / 68; Pulse 70; Resp 16; Pulse Ox 98% on R/A; db 11:30 BP 121 / 60; Pulse 65; Resp 16; Pulse Ox 99% on R/A; db 12:30 BP 150 / 99; Pulse 69; Resp 16; Pulse Ox 99% ; db 13:24 BP 114 / 58; Pulse 65; Resp 14; Pulse Ox 99% on R/A; db 14:00 BP 107 / 53; Pulse 62; Resp 16; Pulse Ox 100% on R/A; db 09:58 Body Mass Index 26.45 (63.50 kg, 154.94 cm) db 09:58 Pain Scale: Adult db [place] Coma Score: 12:30 Eye Response: spontaneous(4). Motor Response: obeys commands(6). Verbal Response: db oriented(5). Total: 15. Trauma Score (Adult): 12:30 Eye Response: spontaneous(1); Verbal Response: oriented(1); Motor Response: obeys db commands(2); Systolic BP: > 89 mm Hg(4); Respiratory Rate: 10 to 29 per min(4); Miguel Ángel Score: 15; Trauma Score: 12 ED Course: 09:58 Arm band placed on Patient placed in an exam room. db 10:06 Patient arrived in ED. db 10:08 Lalo Sterling MD is Attending Physician. rt 10:14 EKG done, by ED staff, reviewed by Lalo Sterling MD. Initial lab(s) drawn, by me, db sent to lab. Maintain EMS IV. Dressing intact. Good blood return noted. Site clean \T\ dry. Gauge \T\ site: 20 G LFA. Flushed with 10 mL NS. 10:15 Triage completed. db 10:18 Jaky Miller, RN is Primary Nurse. db 10:[address] via stretcher. db 10:49 Knee Left 3 View XRAY In Process Unspecified. EDMS 10:49 Foot Left 3 View XRAY In Process Unspecified. EDMS 11:04 CT Head C Spine In Process Unspecified. EDMS 11:04 CT Pelvis wo Cont In Process Unspecified. EDMS 11:08 Patient moved back from CT. db 11:09 Patient has correct armband on for positive identification. Bed in low position. Call db light in reach. Side rails up X 1. Client placed on continuous cardiac and pulse oximetry monitoring. NIBP monitoring applied. wood treating inspector on. Pulse ox on. NIBP on. Warm blanket given. Pillow given. 11:30 Oxygen administration via nasal cannula \T\ 2L/min Response to oxygen therapy: symptoms db improved. 12:00 Thermoregulation: warm blanket given to patient. db 12:42 \T\1231 initiated a transfer with Maria G from the [facility] transfer center/ \T\[address] Castillo the electronic court recorder orthopedic for [facility] with Dr. Sterling for patient transfer consultation. \T\1247 administrative approval given by Maria G Spencer, patient has been accepted to [facility] 11A 1103, Dr. Sudeep Castillo has accepted the patient in transfer/ report to be called to [phone]. 13:00 Patient requests pain medication. kc6 14:29 Provided Education on: TRANSFER. db 14:29 No provider procedures requiring assistance completed. Patient transferred, IV remains db in place. Administered Medications: 13:05 Drug: fentaNYL (PF) IVP 100 mcg IVP once Route: IVP; Site: left antecubital; kc6 14:38 Follow up: Response: No adverse reaction; Pain is decreased db Medication: 11:08 VIS not applicable for this client. db Intake: 14:00 PO: 0ml; Total: 0ml. db Outcome: 12:33 ER care complete, transfer ordered by . rt 14:00 Patient's length of stay in the Emergency Department was greater than 2 hours. PENDING db TRANSFER FACILITYPatient's length of stay extended due to 14:29 Transferred by ground EMS to [facility], Transfer form db completed. X-rays sent w/ patient. 14:29 Condition: stable 14:29 Instructed on the need for transfer, 14:38 Patient left the ED. db Signatures: Dispatcher [employer] EDMS Scarlett Corrigan Kaitlyn, RN RN kc6 Jaky Miller RN RN Lalo Greenberg MD MD rt Corrections: (The following items were deleted from the chart) 10:17 09:58 PSHx: Hip replacement; db db 10:17 09:58 PSHx: Hip replacement; db db 10:17 09:58 PSHx: Hip replacement; db db 10:17 09:58 PSHx: Hip replacement; db db 10:17 09:58 PSHx: Shoulder replacement; db db :58 PSHx: Shoulder replacement; db db :58 PSHx: Shoulder replacement; db db :58 PSHx: Shoulder replacement; db db 13:33 13:31 Reassessment: db db
--- NOTE | 2024-04-12 12:34 | EDPHYS ---
Physician Documentation [facility] Name: Yady Diggs Age: 88 yrs Sex: Female : 1935 Arrival Date: 04/12/2024 Time: 10:01 Bed 14 Private MD: ED Physician Lalo Sterling HPI: 04/12 11:04 This 88 yrs old Female presents to ER via EMS with complaints of Fall Injury. rt 11:04 . rt 11:07 Patient presents to the ED with mechanical fall, patient states that she tripped rt overnight, falling hitting the back of her head. Unsure whether or not she lost consciousness. Does report a pain to the left leg, including hip, knee, foot. Denies other injury, other acute complaints, symptoms are moderate in severity, no other aggravating or alleviating factors.. Historical: - Allergies: 09:58 adhesive tape; db 09:58 Iodine; db 09:58 Morphine; db - PMHx: 09:58 diabetes mellitus; GERD; Glaucoma; High Cholesterol; Hypertension; neuropathy; db Hypothyroidism; Parkinson's disease; AFIB (Unknown); - PSHx: 09:58 Appendectomy; Cholecystectomy; section; hysterectomy; Partial colectomy; Hip db replacement; Tonsillectomy; Shoulder replacement; - Immunization history:: Adult Immunizations unknown. - Infectious Disease History:: Denies. - Immunization history: Last tetanus immunization: unknown. - Social history:: Smoking status: Patient denies any tobacco usage or history of. - Family history:: not pertinent. ROS: 11:07 Constitutional: Negative for fever, chills, and weight loss, Cardiovascular: Negative rt for chest pain, palpitations, and edema, Respiratory: Negative for shortness of breath, cough, wheezing, and pleuritic chest pain, Abdomen/GI: Negative for abdominal pain, nausea, vomiting, diarrhea, and constipation, Skin: Negative for injury, rash, and discoloration, Neuro: Negative for headache, weakness, numbness, tingling, and seizure, 11:07 MS/extremity: Positive for pain, Negative for deformity, Exam: 11:07 Constitutional: This is a well developed, well nourished patient who is awake, alert, rt and in no acute distress. Head/Face: Normocephalic, atraumatic. Neck: Trachea midline, no thyromegaly or masses palpated, and no cervical lymphadenopathy. Supple, full range of motion without nuchal rigidity, or vertebral point tenderness. No Meningismus. Chest/axilla: Normal chest wall appearance and motion. Nontender with no deformity. No lesions are appreciated. Cardiovascular: Regular rate and rhythm with a normal S1 and S2. No gallops, murmurs, or rubs. Normal PMI, no JVD. No pulse deficits. Respiratory: Lungs have equal breath sounds bilaterally, clear to auscultation and percussion. No rales, rhonchi or wheezes noted. No increased work of breathing, no retractions or nasal flaring. Abdomen/GI: Soft, non-tender, with normal bowel sounds. No distension or tympany. No guarding or rebound. No evidence of tenderness throughout. Skin: Warm, dry with normal turgor. Normal color with no rashes, no lesions, and no evidence of cellulitis. 11:07 ECG was reviewed by the Attending Physician. 11:07 Musculoskeletal/extremity: Tenderness to the left hip, left knee, left foot. Vital Signs: 09:58 BP 125 / 52; Pulse 70; Resp 16; Temp 98.7(O); Pulse Ox 99% on 2 lpm NC; Weight 63.5 kg; db Height 5 ft. 1 in. ; Pain 5/10; 10:15 BP 143 / 68; Pulse 70; Resp 16; Pulse Ox 98% on R/A; db 11:30 BP 121 / 60; Pulse 65; Resp 16; Pulse Ox 99% on R/A; db 12:30 BP 150 / 99; Pulse 69; Resp 16; Pulse Ox 99% ; db 13:24 BP 114 / 58; Pulse 65; Resp 14; Pulse Ox 99% on R/A; db 14:00 BP 107 / 53; Pulse 62; Resp 16; Pulse Ox 100% on R/A; db 09:58 Body Mass Index 26.45 (63.50 kg, 154.94 cm) db 09:58 Pain Scale: Adult db [place] Coma Score: 12:30 Eye Response: spontaneous(4). Motor Response: obeys commands(6). Verbal Response: db oriented(5). Total: 15. Trauma Score (Adult): 12:30 Eye Response: spontaneous(1); Verbal Response: oriented(1); Motor Response: obeys db commands(2); Systolic BP: > 89 mm Hg(4); Respiratory Rate: 10 to 29 per min(4); Miguel Ángel Score: 15; Trauma Score: 12 MDM: 10:09 Medical Screening Exam initiated rt 13:35 Differential diagnosis: Fracture, intracranial hemorrhage, closed head injury. Data rt reviewed: vital signs, nurses notes, lab test result(s), radiologic studies. Consideration of Admission/Observation Escalation of care including admission/observation considered. Patient requires transfer for higher level of care. Consideration of Admission/Observation patient requires transfer to trauma center, request to go to [facility].. Management of patient was discussed with the following: Intern Architect: Discussed with Dr. Matthews, recommends transfer. I considered the following discharge prescriptions or medication management in the emergency department Medications were administered in the Emergency Department. See MAR. Independent interpretation of the following test(s) in the Emergency Department CT Scan: My interpretation is Acetabular fracture seen on my interpretation of CT scan images. Care significantly affected by the following chronic conditions: Diabetes. Counseling: I had a detailed discussion with the patient and/or guardian regarding the historical points, exam findings, and any diagnostic results supporting the discharge/admit diagnosis, lab results, radiology results, the need to transfer to another facility. Response to treatment: the patient's symptoms have mildly improved after treatment. 04/12 10:10 Order name: Basic Metabolic Panel; Complete Time: 10:54 rt 04/12 10:10 Order name: CBC with Diff; Complete Time: 10:54 rt 04/12 10:10 Order name: LFT's; Complete Time: 10:54 rt 04/12 10:10 Order name: Troponin HS; Complete Time: 10:54 rt 04/12 10:10 Order name: CT Head C Spine; Complete Time: 11:34 rt 04/12 10:10 Order name: CT Pelvis wo Cont; Complete Time: 11:34 rt 04/12 10:10 Order name: Knee Left 3 View XRAY; Complete Time: 11:34 rt 04/12 10:10 Order name: Foot Left 3 View XRAY; Complete Time: 11:34 rt 04/12 10:10 Order name: EKG; Complete Time: 10:11 rt 04/12 10:10 Order name: Cardiac monitoring; Complete Time: 10:31 rt 04/12 10:10 Order name: EKG - Nurse/Tech; Complete Time: 10:31 rt 04/12 10:10 Order name: IV Saline Lock; Complete Time: : rt 04/12 10:10 Order name: Labs collected and sent; Complete Time: : rt 04/12 10:10 Order name: O2 Per Protocol; Complete Time: : rt 04/12 10:10 Order name: O2 Sat Monitoring; Complete Time: 10:31 rt EC:07 Rate is 67 beats/min. Rhythm is regular, Normal Sinus Rhythm with No ectopy, Right rt bundle branch block. MA interval is normal. QRS interval is normal. No Q waves. No ST changes noted. Interpreted by me. Administered Medications: 13:05 Drug: fentaNYL (PF) IVP 100 mcg IVP once Route: IVP; Site: left antecubital; kc6 14:38 Follow up: Response: No adverse reaction; Pain is decreased db Disposition Summary: 04/12/24 12:33 Transfer Ordered Notes: Transfer Location: [facility]-System rt Reason: Higher level of care rt Condition: Stable rt Problem: new rt Symptoms: are unchanged rt Accepting Physician: Dr. Castillo(04/12/24 14:38) db Diagnosis - Mechanical fall rt - Displaced fracture of left acetabulum rt - Displaced fracture of left inferior pubic ramus rt Forms: - Medication Reconciliation Form rt - SBAR form rt Signatures: Dispatcher [employer] EDHemalatha Navarro RN RN kc6 Jaky Miller RN RN db Lalo Sterling MD MD rt Corrections: (The following items were deleted from the chart) 10:11 10:11 Pelvis Wo Cont+CT.RAD.BRZ ordered. EDMS EDMS 10:11 10:11 Knee Left 3 View+RAD.RAD.BRZ ordered. EDMS EDMS 10:11 10:11 Foot Left 3 View+RAD.RAD.BRZ ordered. EDMS EDMS 10:17 09:58 PSHx: Hip replacement; db db 10:17 09:58 PSHx: Hip replacement; db db 10:17 09:58 PSHx: Hip replacement; db db 10:17 09:58 PSHx: Hip replacement; db db 10:17 09:58 PSHx: Shoulder replacement; db db 10:17 09:58 PSHx: Shoulder replacement; db db 10:17 09: PSHx: Shoulder replacement; db db : PSHx: Shoulder replacement; db db 12 12:33 Dr. rt garcia 14:38 12:43 Dr. Anna garcia db
[2024-04-12] MEDS ORDERED: FENTANYL CITR 100 MCG/2 ML ONE (13:05)
[2024-04-12] MEDS ORDERED: NALOXONE 0.4 MG/ML VIAL ONE (13:12)
[2024-04-12 15:06] VITALS: BP 107/53; O2SAT 100
--- NOTE | 2024-04-13 12:41 | EKG ---
Test Date: 2024-04-12 Test Time: 10:23:06 Brand Lead: GARCÍA MEASUREMENT RESULTS: Intervals: Rate: 67 OH: 190 QRSD: 132 QT: 544 QTc: 574 [place]: P: 72 OH: 190 QRS: -65 T: 33 INTERPRETIVE STATEMENTS: Normal sinus rhythm with sinus arrhythmia Right bundle branch block Left anterior fascicular block Bifascicular block Abnormal ECG Compared to ECG 09/04/2023 19:58:48 First degree AV block no longer present Bifascicular block still present Electronically Signed On 04-13-24 12:39:06 PHONE REPRESENTATIVE by Leonardo Powers
== END 2024-04-12 14:38 | disposition short-term general hospital (02) ==
LOC: ER 10:01 → SUPCPDRO 10:01 → ER 14:38
DX: S32.402A Unspecified fracture of left acetabulum, initial encounter for closed fracture (principal); S32.592A Other specified fracture of left pubis, initial encounter for closed fracture; W18.00XA Striking against unspecified object with subsequent fall, initial encounter; E11.9 Type 2 diabetes mellitus without complications; I10 Essential (primary) hypertension; G20.A1 Parkinson's disease without dyskinesia, without mention of fluctuations
CPT/HCPCS: 93005; 85025; 80048; 36415; 80076; 84484; 70450; 72125; 72192; 73630; 73562; 96374; 99285; J3010; J2310

== ENCOUNTER 2024-04-19 14:41 | Inpatient (IN) | payer OTHER ==
[2024-04-19 22:52] VITALS: BMI 34.2
[2024-04-19] MEDS: TRAZODONE 150 MG TAB PO SCH (23:28)
[2024-04-19] MEDS: ATORVASTATIN 20 MG TAB PO SCH (23:28)
[2024-04-20] MEDS ORDERED: MELATONIN 3 MG TABLET PO PRN (00:02)
[2024-04-20 00:34] LABS: Specific Gravity 1.015 (1.005-1.030); Sqamous Epithelial None Seen /HPF (None Seen); Urine Bacteria None Seen /HPF (<20); Urine Bilirubin NEGATIVE (Negative); Urine Blood Negative (Negative); Urine Clarity Clear (Clear); Urine Color Light-Yellow (Yellow); Urine Culture Reflex Order NOT NEEDED; Urine Glucose NEGATIVE (Negative); Urine Ketones TRACE (Negative); Urine Micro Reflex YN NO BILL MICROSCOPIC; Urine Mucus Slight /HPF (None Seen); Urine Nitrite NEGATIVE (Negative); Urine Protein TRACE (Negative); Urine RBC <5 /HPF (None Seen); Urine Urobilinogen 1+ (Normal); Urine WBC <5 /HPF (<5); Urine pH 7.5 (5.0-7.0)
[2024-04-20] MEDS: ONDANSETRON 4 MG (ODT) TAB PO PRN (01:30)
[2024-04-20 06:21] LABS: Absolute Basophils 0.1 K/uL (0-0.5); Absolute Eosinophils 0.2 K/uL (0-0.5); Absolute Lymphocytes (CBC) 1.6 K/uL (0.7-4.9); Absolute Monocytes 0.6 K/uL (0.1-1.3); Absolute Neutrophil 4.2 K/uL (1.8-8.0); Basophils % 0.8 % (0-1.3); Eosinophils % 2.7 % (0-4.4); Hemoglobin 8.3 g/dL (12.0-15.0); Lymphocytes % 24.1 % (15.3-44.8); MCH 30.1 pg (27.0-35.0); MCHC 33.4 g/dL (32.0-36.0); MCV 90.2 fL (80-100); MPV 7.2 fL (7.6-11.3); Monocytes % 9.6 % (3.3-12.3); Neutrophils % 62.8 % (41.7-73.7); Nucleated Red Blood Cells % 0.1 % (0-0); Platelets 193 thou/uL (152-406); RBC Red Blood Cell Count 2.77 M/uL (3.86-4.86); Red Cell Distribution Width 15.5 % (12.1-15.2)
[2024-04-20 06:35] LABS: Albumin 2.4 g/dL (3.4-5.0); Anion Gap 6.5 mEq/L (5.0-15.0); Magnesium 1.9 mg/dL (1.6-2.4); Potassium 3.5 mEq/L (3.5-5.1); Prealbumin 11.3 mg/dL (20-40)
[2024-04-20] MEDS: LEVOTHYROXINE SOD 0.05 MG TABLET PO SCH (07:27)
[2024-04-20] MEDS: PANTOPRAZOLE 40MG TABLET PO SCH (07:27)
[2024-04-20] MEDS: POLYETHYL GLY 3350 17 GM/DOSE PO SCH (07:28)
[2024-04-20] MEDS: ESCITALOPRAM 20 MG TAB PO SCH (07:28)
[2024-04-20] MEDS: GABAPENTIN 300 MG CAP PO SCH (07:28)
[2024-04-20] MEDS: PRAMIPEXOLE 0.25 MG TAB PO SCH (07:28)
[2024-04-20] MEDS: CRANBERRY FRUIT EXTRACT 200 MG CAP PO SCH (07:28)
[2024-04-20] MEDS: hydroCHLOROthiazide 12.5 MG CAP PO SCH (07:38)
[2024-04-20] MEDS: lisinopriL 20 MG TAB PO SCH (07:38)
--- NOTE | 2024-04-20 08:25 | RAD REPORT ---
Exam:Abdomen 1 View (KUB) Clinical history: Abdominal pain. Constipation FINDINGS: The bowel gas pattern is unremarkable. A moderate amount stool is present throughout the colon. Postsurgical changes left hemipelvis. Calcifications within the pelvis presumably phleboliths.
--- NOTE | 2024-04-20 08:28 | RAD REPORT ---
Procedure: Chest Single View HISTORY: Cough COMPARISON: 2022 FINDINGS: Left lung base mildly hazy. This could be secondary to small left pleural effusion, infiltrate or ove rlying soft tissue.. Right lung appears clear of acute infiltrate The heart is normal size.. Small to moderate hiatal hernia. IMPRESSION: Left lung base mildly hazy. This could be secondary to small left pleural effusion, infiltrate or ove rlying soft tissue. PA and lateral chest series may be helpful for further evaluation. .
[2024-04-20] MEDS: ENOXAPARIN 30 MG/0.3 ML SQ SCH (10:22)
[2024-04-20] MEDS: HYDROCODONE/APAP 5/325 MG TAB PO PRN (14:56)
[2024-04-20] MEDS: DOCUSATE NA/SENNA CONC 1 TAB PO PRN (19:41)
--- NOTE | 2024-04-21 00:30 | HP ---
Date of Admission: 04/19/2024 Time Of Service: 6 p.m. Chief Complaint: "I fell and broke my hip." History Of Present Illness: Ms. Diggs is an 88-year-old patient with hypertension, dyslipidemia, diabetes mellitus type 2, hypothyroidism, prior shoulder arthroplasty in 2020, who presents to the [facility] after mechanical fall. She tripped over her walker and had brief loss of consciousness. She did have a history of left total hip arthroplasty about 50 years ago, and she was imaged. CT head wa s negative for acute findings, but CT of the hip showed acetabular periprosthetic fracture. The orth opedic service evaluated the patient, and she was admitted for surgery. She had episodes of bradycar melody and was transferred for higher level of care. She did have the open reduction and internal fixat ion of the left hip periprosthetic acetabular fracture on 04/14/2024 and was put at a touchdown weigh tbearing status with the left lower extremity and posterior hip precautions. She did receive 2 units of packed red blood cells for anemia related to surgery. Postop, she had urinary retention. She wa s seen by Urology, and medications were used to help with urine flow and a Velez catheter replaced. She had insulin sliding scale for diabetes mellitus and was managed for hypothyroidism and dyslipidem ia. She was eventually medically cleared and evaluated by the rehab service, and found to require ma ximal assistance for toileting, lower body dressing; moderate assistance for dbv-mx-nhzjy transfers; and min assist for feeding and grooming. As she is functioning well below her baseline level of func tioning, which is she is independent, ambulating with a rolling walker, taking care of her activities of daily living, she is now unable to return to that level of functioning without aggressive therapy . She will have her comorbid conditions addressed while in inpatient rehabilitation and will help he r to return to her prior level of functioning and to reduce the risk of rehospitalization. Past Medical History: As noted above. In addition, she has Parkinson disease and is on Mirapex dopa mine agonist. She has macular degeneration, osteoarthritis of the right shoulder. Past Surgical History: Appendectomy, colon surgery, hernia repair, hysterectomy, shoulder surgery, t onsillectomy, total hip arthroplasty and now revision. Allergies: ADHESIVE TAPE, MORPHINE, EXTERNAL ALLERGIES. Medications: Tylenol 500 mg every 4 hours as needed, Fayette 5/325 every 4 hours as needed, Lipitor 20 mg at bedtime, Lovenox 30 mg subcutaneously daily, Lexapro 20 mg daily, gabapentin 300 mg twice jasbir y, hydrochlorothiazide 12.5 mg daily, Synthroid 0.05 mg daily, Prinivil 20 mg twice daily, melatonin 3 mg at night for insomnia, Robaxin 500 mg 4 times daily as needed, Zofran 4 mg every 4 hours as need ed, Protonix 40 mg daily, Glycolax 17 g daily scheduled, Mirapex 0.25 mg twice daily, Ultram 50 mg ev samuel 4 hours as needed, Senokot-S 2 at bedtime, trazodone 150 mg at bedtime for insomnia. Family History: Noncontributory. Imaging Studies: On 04/13/2024, x-ray of the hip shows osseous structures are demineralized. Left t otal hip arthroplasty. Deformities of the bilateral inferior pubic ramus, likely chronic. On 2023, CT of the pelvis shows left hip total arthroplasty with periprosthetic acetabular fracture, lef t inferior pubic ramus fracture, right hip osteoarthrosis, osteopenia, spondylosis. CT of the pelvis on 04/15/2024, shows status post hardware fixation of the left acetabulum periprosthetic fracture wi th expected postoperative findings. Left inferior pubic ramus fracture and osteopenia. CT of the he ad on 04/14/2024 showed no acute intracranial abnormalities. She did have a more recent x-ray done of the chest. The study showed left lung base mildly hazy, cou ld be secondary to small left pleural effusion, infiltrate, or overlying soft tissue. PA and lateral recommended. Furthermore, KUB was also done. The study showed bowel gas pattern unremarkable. Mod erate amount of stool present throughout the colon. Postsurgical changes on the left hemipelvis. Ca lcification within the pelvis, presumably phleboliths. Laboratory Studies: White blood cell count 6.6, hemoglobin 8.3, platelets 193. Sodium 144, potassiu m 3.5, chloride 110, carbon dioxide 31, BUN 13, creatinine 0.89, glucose 97. A1c is pending. Calciu m 8.6, magnesium 1.9, albumin 2.4. Prealbumin 11.3. Urinalysis shows pH 7.5, trace ketones, 1+ urob ilinogen, trace total protein, otherwise unremarkable. Social History: No alcohol, tobacco, or IV drug use. The patient lives with family in single family home. Code Status: Full Code. Review of Systems: She reports some nvqh-oi-hkkvjovy pain in the left hip and pain medications are helping; and insomnia . Also, no bowel movements for 2 to 3 or more days, and she usually gets MiraLAX and that works, but not successfully yet. She will have Senokot and MiraLAX tomorrow. If need be, Fleet enema may be u sed. Otherwise, on review of systems, no fevers or chills. No myalgias, arthralgias. Denies any rash, ps ychiatric complaints. No gastrointestinal or genitourinary complaints aside from mentioned. She mosqueda s still have the Velez bag in place. She will have bladder training starting tomorrow. Current Level Of Functioning: Moderate assistance for eating and oral hygiene. Dependent for toilet ing. Showering, max assist. Upper body dressing, moderate assistance. Lower body dressing, depende nt. Donning and doffing footwear, dependent. Rolling left to right and right to left, all dependent . Lying to sitting and sitting to standing, dependent. Toilet transfer, dependent. At this point, she is touchdown weightbearing in the left lower extremity. Has not walked. Physical Examination: Vital Signs: Blood pressure is 168/60, pulse 63, respiratory rate 18, temperature 98.9, oxygen satur ation 94%. Weight 181 pounds, height 5 feet 1 inch, BMI 34.2. General: Ms. Diggs is resting comfortably in bed. She is in no significant distress. HEENT: She is normocephalic, atraumatic. Sclerae anicteric. Oropharynx moist. Neck: Supple. Chest: Clear. No significant edema. Extremities: Postoperative changes expected in the left lower extremity had been seen. Neurological: She has no focal deficits. She has no obvious tremor at this point. Mild generalized bradykinesia. Rehab And Medical Assessment And Plan: Ms. Diggs is an 88-year-old patient, admitted to the [facility] rehabilitation unit with impairment category 07, orthopedic, lower extremity fracture. Her impa irment group code is 08.3, status post pelvic fracture. Etiologic diagnosis, left acetabular peripro sthetic fracture. Her comorbidities are anemia, bradycardia, Parkinson disease, decreased mobility, decreased physical functioning, dyslipidemia, hypertension, hypothyroidism, urinary retention, and di abetes mellitus type 2 in addition to the left acetabular fracture, status post open reduction and in ternal fixation. Plan: She will have physical, occupational, and if need be speech therapy 3.5 hours, 5 of 7 days. S he will continue with Mirapex for Parkinson disease, trazodone for insomnia, Ultram for moderate pain , Fayette for severe pain, Tylenol for mild pain. She has constipation and treated with Senokot and Mi raLAX. Protonix for GE reflux, Zofran for nausea, Robaxin for muscle spasms. Prinivil for hypertens ion. Continue Synthroid for hypothyroidism, gabapentin for neuropathic pain, Lovenox for DVT prophyl axis. She has Lipitor for dyslipidemia. Comorbidities That Are Impacting Rehabilitation: She does have mild Parkinson disease. She is manag ed with a low dose of Mirapex; however, she is at risk of freezing and falling. Fall precautions to be adhered to at all times. Gait belt in chair and to tow when ambulating, which actually she will b e touchdown, will be using the arms and right leg. She is at risk of pneumonia. She has incentive s pirometry that we will continue, and she is encouraged to use on a regular basis throughout the day w hile not in therapy. Also told to move the legs back and forth and feet back and forth while in bed to reduce the risk of clot formation. Rehab Specific Plan: Ms. Diggs will have physical and occupational therapy, if need be speech alaina clifton, for total of 3.5 hours, 5 of 7 days to improve her ability to transfer from bed to a chair to a wheelchair to the toilet off and on and in and out of the shower. Therapy to help her mobilize the wheelchair 250 feet with independence. She may be able to steps perhaps and/or more at th is point likely to be able to go up and down stairs, but flat surface ambulation. To also improve he r ability to dress upper and lower body, don and doff footwear, and make safe decisions regarding her transfers and mobilization. If need be speech therapy to help with safety awareness and communicati on and following instructions to maintain her hip precautions. Ms. Diggs has a good understanding of the process of admission to the inpatient rehabilitation [facility] and how she will benefit from physical and occupational therapy. She will have 24 hours a day, 7 days a week skilled rehabilitation nursing, daily physician evaluation, and management, and social service evaluation and management for discharge planning, home equipment, and continuing therapy. S he currently has Dr. Pena following her. It is her primary care physician. If need be, Orthopedic S ata will be consulted. Barriers To Discharge: Currently, she is at high risk of additional falls and fall precautions to be adhered to at all times. She may have to spend a stint in senior care if she is unable to trans roxanne, which may be by sliding board or stand pivot with the right leg. At this point, it is anticipat ed she will be able to do successfully. Length Of Stay: About 14 days. Disposition: Expected to be back home with family. Prognosis: Good. Code Status: Full Code. Rehab Specific Goals: 1.Become independent with upper body dressing. 2.Independently transfer from a bed with sliding board onto a wheelchair and toilet. 3.Independently mobilized a wheelchair 250 feet. 4.Independently perform all cognitive functioning. 5.Work towards independently performing activities of daily living. The above goals were reviewed with Ms. Diggs and she is in agreement. By signing this document, I acknowledge I personally performed a full physical examination on Ms. Chidi win no later than 24 hours after her admission to the inpatient rehabilitation facility and determine d that she is able to tolerate the above course of treatment at an intensive level for a reasonable p eriod of time. A detailed individualized plan of care for her will be completed by hospital day 4 based on her preadmission screening, history and physical, and therapy evaluations. LACY Voice ID: [id number]
[2024-04-21] MEDS: ENSURE ENLIVE 237 ML CAN PO SCH (09:44)
[2024-04-21] MEDS: DOCUSATE NA/SENNA CONC 1 TAB PO SCH (20:18)
[2024-04-21] MEDS: ENSURE HIGH PROTEIN 237 ML CAN PO SCH (20:19)
[2024-04-21] MEDS: LORATADINE 10 MG TAB PO SCH (21:18)
--- NOTE | 2024-04-21 22:33 | PN ---
Date of Progress Note: 04/21/2024 Time Of Service: 1 p.m. Subjective: Ms. Diggs is resting comfortably. She says the left periprosthetic fracture area jayden ws some moderate pain after she finished exercise. No other issues. She is sleeping well. She page shell had no bowel movement in about 3 to 4 days and will have MiraLAX, milk of magnesia, and Senokot. No other new complaints. Objective: No fevers, chills, nausea, vomiting. Mild myalgias, arthralgias. No rash, headache, salas ght change. No psychiatric issues. Physical Examination: Vital Signs: Blood pressure is 169/73, pulse 68, respiratory rate 18, temperature 98.1, and oxygen s aturation 94%. General: Again, Ms. Alarcon is resting comfortably. HEENT: She is normocephalic, atraumatic. Sclerae anicteric. Oropharynx pink, moist. Neck: Supple. Chest: Clear. Extremities: Mild postoperative changes expected in left lower extremity. There is good hemostasis of the surgical site. Laboratory Studies: Complete blood count with differential shows white blood cell count 6.6, hemoglo bin 8.3, platelets 193. Sodium 144, potassium 3.5, chloride 111, carbon dioxide 31, BUN 13, creatini ne 0.89, hemoglobin A1c of 5.2, albumin 2.4, prealbumin 11.3. Her urine culture showed less than 10, 000 colony-forming units of mixed iwona. X-ray/imaging: As noted, 4 KUB and chest x-ray were mentioned yesterday. She does have some stool r etained. She is on incentive spirometry as the chest x-ray does show left lung base mildly hazy and she may represent small pleural effusion and again incentive spirometry being used. Progress Made With Physical And Occupational Therapy: With physical therapy today, she was able to m obilize with gait training 5 steps, maximal assistance with touchdown weightbearing in left lower ext remity, completed wheelchair mobilization of 90 feet and then 250 feet with minimum assistance. Bed mobility completed with moderate assistance including turning and supine to sit. Ktu-pk-bdplb transf er done with min to mod assist. With occupational therapy, discussed prior to the session , was educated on the military cook. This is her assistive device with a dressing stick with a sock aid an d she was able to demonstrate how to use these with the therapist. In addition, showering moderate a ssistance, complete wheelchair to bed transfer with moderate assistance, minimum assistance for bed r olling to reposition in the bed. Assessment: Ms. Diggs is an 88-year-old patient in the rehabilitation unit with left acetabular p eriprosthetic fracture, status post surgical repair. Her comorbidities are decreased mobility, decre ased physical functioning, Parkinson's disease, for which she is on Mirapex, bradykinesia, constipati on, dyslipidemia, hypertension, hypothyroidism, urinary retention, diabetes mellitus type 2. Plan: 1.She will continue with physical and occupational therapy, 3 hours a day, 5 of 7 days. Continue wi th Mirapex for Parkinson's disease. 2.Trazodone for insomnia. 3.MiraLAX, Senokot, and milk of mag for her constipation. 4.Protonix for GE reflux. 5.Zofran for nausea. 6.Robaxin for muscle spasms. 7.Prinivil for hypertension. 8.Synthroid for hypothyroidism. Continue gabapentin for neuropathic pain. She has Lovenox for DVT prophylaxis and Lipitor for dyslipidemia, and she will continue again with all therapy. She is follo wed by Dr. Pena, her primary care physician. ADINA/OLGA LIDIA Voice ID: [id number] Report ID: [id number]
--- NOTE | 2024-04-22 06:57 | PN ---
Date of Progress Note: 04/21/2024 History: The patient was seen this morning for followup. She was on the rehab floor, denies any com plaints. Physical Examination: Vital Signs: Temperature 98.1, pulse 68, respiratory rate 16, blood pressure 169/73, oxygen saturati on 94%. HEENT: Unremarkable. Lungs: Clear to auscultation. Heart: Sounds normal. Abdomen: Soft, bowel sounds normal. No guarding, rigidity, tenderness, or distention. Extremities: No leg edema. Left lateral hip has surgical dressing present from recent surgery. Impression: 1.Left acetabular fracture. 2.Hypertension. 3.Chronic kidney disease, stage III. 4.Hyperlipidemia. 5.Osteoarthritis, multiple sites. 6.Anemia, unspecified. 7.Malnutrition. Laboratory Data: From yesterday white count 6.6, hemoglobin 8.3, platelets 193. Sodium 144, potassi um 3.5, chloride 110, bicarb 31, BUN 13, creatinine 0.89, glucose 97. Hemoglobin A1c 5.2, albumin le dany 2.4. Plan: We will go ahead and continue physical therapy under guidance of Dr. Varela. Continue antih ypertensive medication. Monitor blood pressure if necessary, adjust blood pressure medications. Sourav caro current DVT prophylaxis. For anemia, no need for further intervention except monitoring and no need for any blood transfusion at this time. I will see her tomorrow for armando walter. SANDRO/MODL Voice ID: [id number] Report ID: [id number]
[2024-04-22] MEDS: FERROUS SULFATE 325 MG TAB PO SCH (07:00)
[2024-04-22] MEDS: FE SULF/FA/VIT B COMP & C TAB PO SCH (07:00)
[2024-04-22] MEDS: LIDOCAINE 4% PATCH TOP SCH (07:00)
[2024-04-22] MEDS ORDERED: ENOXAPARIN 40 MG/0.4 ML SQ SCH (08:00)
[2024-04-22] MEDS: AMLODIPINE 2.5 MG TAB PO SCH (10:05)
[2024-04-22] MEDS: BISACODYL 10 MG RECTAL SUPP PR ONE (14:09)
--- NOTE | 2024-04-22 22:58 | PN ---
Date of Progress Note: 04/22/2024 Time Of Service: 1 p.m. Subjective: Ms. Diggs is resting comfortably. She says there is still some ddty-bb-jymhindq pain after therapy as she did not take a pain pill until after she started her physical therapy earlier t his morning. Otherwise, she has no new complaints besides having no real significant bowel movements in about 4 days. Objective: No fevers, chills, nausea, vomiting. Again, mild pain in the left hip surgical site and constipation as noted. No other new complaints. Physical Examination: Vital Signs: Blood pressure 165/68, pulse 62, respiratory rate 18, temperature 98.2, oxygen saturati on 95%. General: Ms. Alarcon is resting in bed. She is in no acute distress. HEENT: Normocephalic, atraumatic. Sclerae anicteric. Oropharynx pink and moist. The left hip surg ical site has good hemostasis. Laboratory Studies: No new laboratory studies. X-ray/imaging: No new x-rays or imaging. Medications: Medications have been reviewed. Currently, she does have Norvasc 2.5 mg daily added an d Lovenox 40 mg subcutaneously daily. She has ferrous sulfate for her anemia. She has Hemocyte Plus added as well and tramadol for pain, which has been scheduled in the morning. Progress Made With Physical, Occupational, And Speech Therapy: With physical therapy today, she did attempt gait training with a rolling walker multiple times. She completed 4 to 5 small steps with mi nimum assistance, but was not compliant with weightbearing status today. She mobilized a wheelchair 150 feet and another 100 feet with contact guard assistance and verbal cues. Qxryxe-zs-cxn transfers done with minimum assistance, rka-zl-nxbvc transfers done with moderate to minimum assistance. With occupational therapy, required supervision for elvxvg-cd-bla transfers and odt-nm-gsnke transfers wi th a rolling walker. Also, touchdown weightbearing was maintained there. With speech, she has long- term goals set as improving short-term memory skills from minimum assistance to standby assistance to help facilitate independence. In addition, to improve executive functioning skills from minimum ass istance, standby assistance, to help her return home and be safe. Assessment: Ms. Diggs is an 88-year-old patient in the rehabilitation unit with left acetabular p eriprosthetic fracture, status post surgical repair. She has comorbidities of decreased mobility, de creased physical functioning, Parkinson's disease with bradykinesia, constipation, dyslipidemia, hype rtension, hypothyroidism, urinary retention, diabetes mellitus 2. Plan: 1.She will continue with physical, occupational, and speech therapy for 3.5 hours, 5 of 7 days. 2.She has a list of medications which are noted above. She will continue those for comorbid conditi ons including Synthroid, Mirapex, Protonix, Zofran, Robaxin, MiraLAX, trazodone, Lovenox for DVT prop hylaxis. She is followed by Dr. Pena, her primary care physician. ADINA/OLGA LIDIA Voice ID: [id number] Report ID: [id number]
--- NOTE | 2024-04-23 07:16 | PN ---
Date of Progress Note: 04/22/2024 Subjective: The patient was seen this morning for followup. No new complaints or problems reported by her. Objective: General: She was lying in bed, not in distress. Denies any new complaints. Vital Signs: Reviewed. This morning, temperature was 98.2, pulse 65, blood pressure 164/72, oxygen saturation 92%. HEENT: Unremarkable. Lungs: Clear to auscultation. Heart: Sounds normal. Abdomen: Soft. Bowel sounds normal. No guarding, rigidity, tenderness, distention. Extremities: No leg edema. Impression: 1. Left hip acetabular fracture. 2. Anemia. 3. Hypertension. 4. Osteoarthritis, multiple sites. Plan: We will go ahead and continue current medication. Continue current pain medication. Continue blood pressure medication per order. We will monitor blood pressure if necessary, adjust antihypertensive medication. Physical therapy to be continued under guidance of Dr. Varela. I will see her tomorrow for followup. SANDRO/MODL Voice ID: [id number] Report ID: [id number] YAIMA
[2024-04-23] MEDS: ENOXAPARIN 40 MG/0.4 ML SQ SCH (07:38)
[2024-04-23] MEDS: TRAMADOL HCL 50 MG TAB PO SCH (07:40)
[2024-04-23] MEDS: TRAMADOL HCL 50 MG TAB PO PRN (12:07)
[2024-04-23] MEDS: GABAPENTIN 300 MG CAP PO SCH (19:12)
--- NOTE | 2024-04-24 02:52 | PN ---
Date of Progress Note: 04/23/2024 Time Of Service: 1 p.m. Subjective: Ms. Diggs is ambulating around the unit. She says there is smwn-gl-nnwjiehm pain in the left hip, where she has a periprosthetic fracture repair. Otherwise, she is doing well. Happy s o far with all of her progress made with therapy. Objective: Again, mild pain. No myalgias. Mild muscle spasm in the left lower extremity. Otherwis e, no new complaints on review of systems and objective. Physical Examination: Vital Signs: Blood pressure 156/66, pulse 63, respiratory rate 18, temperature 98.3, oxygen saturati on 95%. General: Ms. Diggs was wheeling herself around in the wheelchair. HEENT: She is normocephalic, atraumatic. Sclerae anicteric. Oropharynx pink, moist. Neck: Supple. Extremities: No significant changes such as edema or cyanosis noted. Good hemostasis of the left hi p surgical site. Laboratory Studies: No new laboratory studies. X-ray/imaging: No new x-rays or imaging. Medications: Medications have been reviewed. She continues all medications unchanged except gabapen tin was increased to 600 mg twice daily. For her pain, left hip, she has 2 lidocaine patches placed. In addition, tramadol was added at 50 mg daily scheduled in the morning. Progress Made With Physical, Occupational, And Speech Therapy: With physical therapy today, she was able to do multiple kjmqpg-wr-qlf transfers with minimum to contact guard assistance, multiple sit-to -stand transfers with moderate to minimum assistance. She mobilized a wheelchair 125 feet once and 1 00 feet twice with contact guard assistance and verbal cues. Used a rolling walker set for stand and pivot transfers with minimum assistance. With occupational therapy, supervision for lwtvyr-xh-wzs t ransfers. Contact guard to minimum assistance for mwz-pb-piwge transfers. She worked on improving h er upper body strength. With speech, demonstrated organizational thinking skills through an exclusio n intervention exercise with 90% accuracy and minimum assistance. Cause and effect relationship demo nstrated by the patient with 100% accuracy when giving explanations for all scenarios. Assessment: Ms. Diggs is an 88-year-old patient, making good progress overall with her physical, occupational, and speech therapy. She has left acetabular periprosthetic fracture, status post repai r. Comorbidities: Decreased mobility, decreased physical functioning, constipation, anemia, hyperte nsion, hypothyroidism, urinary retention, diabetes mellitus type 2, and Parkinson disease with bradyk inesia. Plan: 1.She will continue with physical, occupational, and speech therapy 3.5 hours, 5 of 7 days. 2.She has comorbid conditions which are noted and medications listed are continuing, including two a djustments made to pain regimen including the tramadol and the gabapentin, which the patient said katrin or to that there was moderate pain up to 7, and perhaps even 8 or 9 [address] she is mobilizing[address] Dr. Pena i s following the patient and managing of medications and comorbid conditions. ADINA/OLGA LIDIA Voice ID: [id number] Report ID: [id number]
[2024-04-24 06:15] LABS: Absolute Basophils 0.1 K/uL (0-0.5); Absolute Eosinophils 0.2 K/uL (0-0.5); Absolute Monocytes 0.6 K/uL (0.1-1.3); Absolute Neutrophil 3.9 K/uL (1.8-8.0); Basophils % 1.1 % (0-1.3); Eosinophils % 3.7 % (0-4.4); Hematocrit 26.1 % (36.0-45.0); Hemoglobin 8.8 g/dL (12.0-15.0); Lymphocytes % 28.8 % (15.3-44.8); MCH 30.8 pg (27.0-35.0); MCHC 33.7 g/dL (32.0-36.0); MCV 91.3 fL (80-100); MPV 7.2 fL (7.6-11.3); Monocytes % 8.8 % (3.3-12.3); Neutrophils % 57.6 % (41.7-73.7); Nucleated Red Blood Cells % 0.1 % (0-0); Platelets 277 thou/uL (152-406); RBC Red Blood Cell Count 2.86 M/uL (3.86-4.86); Red Cell Distribution Width 16.3 % (12.1-15.2)
[2024-04-24 06:34] LABS: Albumin 2.4 g/dL (3.4-5.0); Anion Gap 6.5 mEq/L (5.0-15.0); Magnesium 1.6 mg/dL (1.6-2.4); Potassium 3.5 mEq/L (3.5-5.1); Prealbumin 13.4 mg/dL (20-40)
--- NOTE | 2024-04-24 07:37 | PN ---
Date of Progress Note: 04/23/2024 Subjective: The patient was seen this morning for followup. No new complaints or problems reported by her. She was lying in bed, not in distress. Denies any chest pain, shortness of breath, nausea, vomiting. Reports that she did have bowel movement yesterday. Objective: Vital Signs: Reviewed. HEENT: Unremarkable. Lungs: Clear to auscultation. Heart: Sounds normal. Abdomen: Soft. Bowel sounds normal. No guarding, rigidity, tenderness, distention. Extremities: No leg edema. Impression: 1.Left acetabular fracture, status post surgery. 2.Anemia. 3.Hypertension. 4.Constipation. Plan: We will go ahead and continue current antihypertensive medication. Monitor blood pressure. I f necessary, we will make further adjustment on it over next day or two days. Continue physical therapy supervisor apy under guidance of Dr. Varela. We will continue current stool softener. I will see her tomorro w for followup. SANDRO/MODL Voice ID: [id number] Report ID: [id number]
[2024-04-24] MEDS: MAGNESIUM OXIDE 400 MG TAB PO SCH ×2 (08:56→20:48)
[2024-04-24] MEDS: ACETAMINOPHEN 500 MG TAB PO PRN (09:50)
[2024-04-24] MEDS: TAMSULOSIN 0.4 MG SR CAP PO SCH (20:49)
--- NOTE | 2024-04-25 01:10 | PN ---
Date of Progress Note: 04/24/2024 Time Of Service: 1:10 p.m. Subjective: Ms. Diggs is resting in bed between therapy sessions. She is feeling very good about her recovery. The left hip area does have some evvj-or-uvjemajr pain as she finishes therapy. Pain medications were adjusted. Objective: Again, mild pain in the left hip. Mild myalgias and arthralgias. Otherwise, no new comp laints on objective or systems review. Physical Examination: Vital Signs: Blood pressure is 148/60, pulse 60, respiratory rate 16, temperature 98.2, oxygen satur ation 95%. General: Again, Ms. Diggs is resting in bed. HEENT: She is normocephalic, atraumatic. Sclerae anicteric. Oropharynx moist. Neck: Supple. Chest: Clear. Skin: Her surgical site has good hemostasis. No other new findings. Laboratory Studies: White blood cell count 6.8, hemoglobin 8.8, platelets 277. Sodium 141, potassiu m 3.5, chloride 107, carbon dioxide 31, BUN 17, creatinine 1.01, glucose 106. Hemoglobin A1c 5.2. C alcium 8.6, magnesium 1.6, albumin 2.4, prealbumin 13.4. X-ray/imaging: No new x-rays or imaging. Medications: Her medications have been reviewed. She now has Flomax for urinary retention 0.4 mg da mamta. She has bladder training that is not very successful at this point. Tramadol also on board for pain and adjustment made to 100 mg in the morning and then 50 mg every 4 hours as needed. Progress Made With Physical, Occupational, And Speech Therapy: Today, she participated multiple time s in gait training using a rolling walker. Able to complete 1 small hop with maximum assistance, was not compliant with weightbearing status, which is touchdown weightbearing. She did mobilize a wheel chair 150 feet once and another 100 feet twice with standby assistance. She did perform multiple sit -to-stand transfers with supervision. With occupational therapy, supervision for cdrhjg-st-wmz trans fers, contact guard for edge of bed to wheelchair transfer. She did have improved pain tolerance wit h pain medication adjustments. Pain was rated around 6 to 7 at worse and around 5 later on in the af ternoon. Ice pack was placed on the left hip, which did help somewhat. With speech, demonstrated ab ility to sequence 3 steps in ADL sequences without cues with 90% accuracy. Negation activity complet ed for concrete categories with 100% accuracy and minimum assistance. Ms. Diggs is making good progress overall with physical, occupational, and speech therapy. Pain c ontrol is improving. Assessment: Ms. Diggs is an 88-year-old patient in the rehabilitation unit with left acetabular p eriprosthetic fracture, status post repair. She has decreased mobility, decreased physical functioni ng, constipation, anemia, hypertension, hypothyroidism, diabetes mellitus, urinary retention and is n ot doing very well in terms of bladder training, and Parkinson's with bradykinesia. Plan: 1.She will continue with all current therapy and physical, occupational, and speech therapy 3.5 hour s, 5 of 7 days. 2.She has a list of medications, as noted, continued for her comorbid conditions. The tramadol agai n adjusted along with gabapentin with to help with pain management. She has Parkinson's treatment co ntinued, which is the pramipexole 0.25 mg twice daily. She has Lovenox for DVT prophylaxis. Lexapro for depression, gabapentin for neuropathic pain, hydrochlorothiazide for her fluid management, Synth roid again for hypothyroidism, methocarbamol for muscle spasms. LB/MODL Voice ID: [id number] Report ID: [id number]
--- NOTE | 2024-04-25 01:19 | PN ---
Date of Progress Note: 04/24/2024 Subjective: The patient was seen this morning for followup. She denies any new complaints. Pain in her left hip area is well controlled with current medication. Denies any constipation problem. No abdominal pain. No chest pain. No shortness of breath. She is participating well with physical the rapy. Objective: Vital Signs: Reviewed. HEENT Examination: Unremarkable. Lungs: Clear to auscultation. Heart: Sounds normal. Abdomen: Soft. Bowel sounds normal. No guarding, rigidity, tenderness, distention. Extremities: No leg edema. Laboratory Data: WBC 6.8, hemoglobin 8.8, platelets 277. Sodium 141, potassium 3.5, chloride 107, b icarb 31, BUN 17, creatinine 1.01, glucose 106, serum albumin 2.4. Impression: 1.Left acetabular fracture, status post surgery. 2.Anemia. 3.Hypertension. 4.Constipation. Plan: We will go ahead and continue current anticoagulation therapy for DVT prophylaxis. Continue c urrent antihypertensive medication. Physical therapy to be provided under guidance of Dr. Varela. Continue current stool softener, and we will see her tomorrow for followup. Discussed with the patient regarding possible discharge date from rehab, which is schedule d for next week, on Sunday. SANDRO/MODL Voice ID: [id number] Report ID: [id number]
[2024-04-25] MEDS: TRAMADOL HCL 50 MG TAB PO SCH (07:57)
--- NOTE | 2024-04-25 09:21 | P.RH.PN ---
Estimated Length of Stay: 14 Expected Discharge Date: 05/07/24 Discharge Disposition Plan: Home Family Support: Yes Halfway Goal: Mobility, Transfers, Self Care Vital Signs: Last Vital Signs Temp 98.6 F 04/25/24 08:00 Pulse 62 04/25/24 08:00 Resp 16 04/25/24 08:00 BP 143/55 H 04/25/24 08:00 Pulse Ox 92 04/25/24 08:00 Laboratory: Laboratory Last Values WBC 6.80 thou/uL (4.3-10.9) 04/24/24 05:34 RBC 2.86 M/uL (3.86-4.86) L 04/24/24 05:34 Hgb 8.8 g/dL (12.0-15.0) L 04/24/24 05:34 Hct 26.1 % (36.0-45.0) L 04/24/24 05:34 MCV 91.3 fL (80-100) 04/24/24 05:34 MCH 30.8 pg (27.0-35.0) 04/24/24 05:34 MCHC 33.7 g/dL (32.0-36.0) 04/24/24 05:34 RDW 16.3 % (12.1-15.2) H 04/24/24 05:34 Plt Count 277 thou/uL (152-406) 04/24/24 05:34 MPV 7.2 fL (7.6-11.3) L 04/24/24 05:34 Neutrophils % 57.6 % (41.7-73.7) 04/24/24 05:34 Lymphocytes % 28.8 % (15.3-44.8) 04/24/24 05:34 Monocytes % 8.8 % (3.3-12.3) 04/24/24 05:34 Eosinophils % 3.7 % (0-4.4) 04/24/24 05:34 Basophils % 1.1 % (0-1.3) 04/24/24 05:34 Absolute Neutrophils 3.9 K/uL (1.8-8.0) 04/24/24 05:34 Absolute Lymphocytes 2.0 K/uL (0.7-4.9) 04/24/24 05:34 Absolute Monocytes 0.6 K/uL (0.1-1.3) 04/24/24 05:34 Absolute Eosinophils 0.2 K/uL (0-0.5) 04/24/24 05:34 Absolute Basophils 0.1 K/uL (0-0.5) 04/24/24 05:34 Sodium 141 mEq/L (136-145) 04/24/24 05:34 Potassium 3.5 mEq/L (3.5-5.1) 04/24/24 05:34 Chloride 107 mEq/L (98-107) 04/24/24 05:34 Carbon Dioxide 31 mEq/L (21-32) 04/24/24 05:34 Anion Gap 6.5 mEq/L (5.0-15.0) 04/24/24 05:34 BUN 17 mg/dL (7-18) 04/24/24 05:34 Creatinine 1.01 mg/dL (0.55-1.02) 04/24/24 05:34 Est GFR (CKD-EPI) 54 ml/min (=/>90) L 04/24/24 05:34 Glucose 106 mg/dL (74-106) 04/24/24 05:34 Hemoglobin A1c 5.2 % (4.2-6.3) 04/20/24 05:10 Calcium 8.6 mg/dL (8.5-10.1) 04/24/24 05:34 Magnesium 1.6 mg/dL (1.6-2.4) 04/24/24 05:34 Albumin 2.4 g/dL (3.4-5.0) L 04/24/24 05:34 Prealbumin 13.4 mg/dL (20-40) L 04/24/24 05:34 Urine Color Light-yellow (Yellow) 04/19/24 23:40 Urine Clarity Clear (Clear) 04/19/24 23:40 Urine pH 7.5 (5.0-7.0) H 04/19/24 23:40 Ur Specific Norton 1.015 (1.005-1.030) 04/19/24 23:40 Glucose (UA)(Auto) Negative (Negative) 04/19/24 23:40 Urine Ketones Trace (Negative) H 04/19/24 23:40 Urine Blood Negative (Negative) 04/19/24 23:40 Urine Nitrite Negative (Negative) 04/19/24 23:40 Urine Bilirubin Negative (Negative) 04/19/24 23:40 Urine Urobilinogen 1+ (Normal) H 04/19/24 23:40 Ur Leukocyte Esterase Negative Isabel/uL (Negative) 04/19/24 23:40 Urine RBC <5 /HPF (None Seen) 04/19/24 23:40 Urine WBC <5 /HPF (<5) 04/19/24 23:40 Ur Squamous Epith Cells None seen /HPF (None Seen) 04/19/24 23:40 Urine Bacteria None seen /HPF (<20) 04/19/24 23:40 Hyaline Casts 0-5 /LPF (None Seen) 04/19/24 23:40 Urine Mucus Slight /HPF (None Seen) 04/19/24 23:40 Urine Culture Reflexed Not needed 04/19/24 23:40 Urine Total Protein Trace (Negative) H 04/19/24 23:40 Weight: 181 lb Wound Present: No Closed Surgical Incision Present: Yes Negative Pressure Wound Therapy Present: No Physician Update: Labs reviewed and are stable. Pain is mild to moderate, addressed with Tramadol, gabapentin. SLUMS 22 mild short term memory loss. SBA bed mobility, supervision for transfers. WC 150' SBA. 3/6 STG upper and mod lower body dressing. Summary: Patient's care plan and correction goals have been reviewed and revised as necessary. Please see the Rehabilitation Signature page for all necessary signatures.
--- NOTE | 2024-04-25 15:25 | PN ---
Date of Progress Note: 04/25/2024 Subjective: The patient was seen this morning for followup. No new complaints or problems reported by patient. She was lying in bed, not in distress. Yesterday, she had little rough time with physic al therapy. Denies any constipation. No nausea or vomiting. Objective: Vital Signs: Reviewed. HEENT: Unremarkable. Lungs: Clear to auscultation. Heart: Sounds normal. Abdomen: Soft. Bowel sounds normal. No guarding, rigidity, tenderness, distention. Extremities: No leg edema. Left lateral thigh surgical dressing present. No evidence of any rednes s, swelling, or any bleeding. Impression: 1.Left acetabular fracture, status post surgery. 2.Anemia. 3.Hypertension. 4.Hyperlipidemia. Plan: We will go ahead and continue current antihypertensive medication. Continue current stool sof tener for constipation problem. Continue current DVT prophylaxis and pain medication per order. Phy sical therapy to be provided under guidance of Dr. Varela. SANDRO/MODL Voice ID: [id number] Report ID: [id number]
[2024-04-27] MEDS: methocarbamoL 500 MG TAB PO PRN (10:45)
--- NOTE | 2024-04-27 11:14 | PN ---
Date of Progress Note: 04/27/2024 Subjective: The patient was seen this morning for followup. She was lying in bed, eating her breakf ast. Denies any new complaints. No chest pain, shortness of breath. No nausea, no vomiting. Denie s any constipation problem and reports that she had a bowel movement yesterday and today. Objective: Vital Signs: Reviewed. Temperature 97.7, pulse 66, respiratory rate 18, blood pressure 149/65, oxygen saturation 98% on room air. HEENT: Unremarkable. Lungs: Clear to auscultation. Heart: Sounds normal. Abdomen: Soft. Bowel sounds normal. No guarding, rigidity, tenderness, distention. Extremities: No leg edema. Impression: 1.Left acetabular fracture, status post surgery. 2.Anemia. 3.Malnutrition. 4.Hypertension. 5.Constipation. Plan: We will go ahead and continue current medication. Continue current pain medication. Continue current DVT prophylaxis. Continue stool softener per order and current antihypertensive medications . The patient is scheduled to go home from rehab point of view this coming week on Sunday and I w ill see her tomorrow for followup. SANDRO/MODL Voice ID: [id number] Report ID: [id number]
[2024-04-28] MEDS: LOPERAMIDE HCL 2 MG CAPSULE PO PRN (10:13)
[2024-04-28] MEDS: MAGNESIUM OXIDE 400 MG TAB PO SCH (19:08)
--- NOTE | 2024-04-28 23:52 | PN ---
Date of Progress Note: 04/28/2024 Time Of Service: 1:25 p.m. Subjective: Ms. Diggs is resting comfortably in bed. Speech pathologist is at bedside. She said the pain in the left hip prosthetic region is somewhat more, and she completed a good amount of ther apy today and that is why the pain is at its most around 7/10 to 8/10. Objective: Mild myalgias and arthralgias in her left hip acetabular periprosthetic site, which has g ood hemostasis. Otherwise, no focal neurologic deficits noted or reported there. Physical Examination: Vital Signs: Blood pressure 132/65, pulse 68, respiratory rate 16, saturation 96%, and temperature i s 98.2. General: Ms. Diggs again is working with the speech pathologist. HEENT: She is normocephalic, atraumatic. Sclerae anicteric. Oropharynx pink and moist. Neck: Supple. Chest: Clear. Extremities: No significant edema, cyanosis, or clubbing noted in the extremities. Good hemostasis of the left hip surgical site. Laboratory Studies: Magnesium, 2 days ago, 1.9. Otherwise, no new laboratory studies. X-ray/imaging: No new x-rays or imaging. Medications: Medications have been reviewed. She has magnesium oxide added at 400 mg twice daily. Imodium for mild loose stools, which have resolved. Otherwise, medications are unchanged. Progress Made With Physical, Occupational, And Speech Therapy: Today, with physical therapy, she was able to complete bed mobility, turning, and lwuvlb-kl-uwp position with supervision to modified [facility]. Completed isd-dy-neqgu transfer with stand pivot technique with standby and independence. Gait: She covered 18 feet, 20 feet, 25 feet with contact guard assistance with touchdown weightbear ing status and the rolling walker. Did occasionally need cuing for weightbearing status precautions. She mobilized wheelchair 100 feet, another 150 feet, and 80 feet with modified independence. With occupational therapy, independent with cvcmxw-nw-nte transfer, minimum assistance for cnb-xe-nwaxz tr tasia, worked with [employer]. She was able to adhere to weightbearing status; she is touchdown salas ghtbearing. With speech, recalled 2 of 4 sets of unrelated words with 100% accuracy after 5-minute d elay. Divergent naming completed with concrete categories and 100% accuracy and moderate assistance. Ms. Diggs is making good progress overall with her physical, occupational, and speech therapy. St ill challenged by significant pain and some loose stools. Those have been addressed. Electrolyte re placement, including magnesium on board. Assessment: Ms. Diggs is an 88-year-old patient in rehabilitation unit with left acetabular perip rosthetic fracture, status post surgical repair. She has decreased mobility, decreased physical func tioning, hypothyroidism, hypertension, diabetes mellitus, urinary retention. Had some loose stools, Parkinson's and is doing very well. Plan: 1.She will continue with physical, occupational, and speech therapy 3.5 hours, 5 of 7 days. 2.Medications have been adjusted for pain, including tramadol and gabapentin. She has pramipexole f or her Parkinson's symptoms. DVT prophylaxis addressed. She has Lexapro for depression, hydrochloro thiazide for fluid management, Synthroid for hypothyroidism. Dr. Pena, her primary care physician, is managing her comorbid conditions. LB/MODL Voice ID: [id number] Report ID: [id number]
--- NOTE | 2024-04-29 00:07 | PN ---
Date of Progress Note: 04/28/2024 Subjective: The patient was seen this morning for followup. No new complaints or problems reported by the patient. She was lying in bed, not in distress. Denies any new complaints this morning. Objective: Vital Signs: Reviewed. HEENT: Unremarkable. Lungs: Clear to auscultation. No rhonchi. No rales. Heart: Sounds normal. Abdomen: Soft. Bowel sounds normal. No guarding, rigidity, tenderness, distention. Extremities: No leg edema. Impression: 1.Left acetabular fracture, status post surgery. 2.Hypertension. 3.Anemia. 4.Constipation. Plan: We will go ahead and continue current pain medication. Continue current DVT prophylaxis. Ant ihypertensive medication will be continued with monitoring the blood pressure, and her blood pressure actually has improved in last few days compared to before. Continue physical therapy under guidance of Dr. Varela, and I will see her tomorrow for followup. SANDRO/MODL Voice ID: [id number] Report ID: [id number]
[2024-04-29 18:24] VITALS: TEMP 97.8
--- NOTE | 2024-04-30 00:41 | PN ---
Date of Progress Note: 04/29/2024 Time Of Service: 1:20 p.m. Subjective: Ms. Diggs is resting comfortably in bed. She is happy about tomorrow being able to g o home. Made great progress with the ability to transfer, mobilize while the left hip prosthetic reg ion where she had the periprosthetic acetabular fracture is healing well and pain is lesser than befo re. Yesterday, she has had 7-8, now 5-6. Review of Systems: Again, mild myalgias, arthralgias in her left foot area, otherwise while in bed, there is no pain and no other complaints. Physical Examination: Vital Signs: Blood pressure 119/57, pulse 65, respiratory rate 18, temperature 97.8, oxygen saturati on 96%. General: Ms. Diggs is resting comfortably. HEENT: She is normocephalic, atraumatic. Sclerae anicteric. Oropharynx pink, moist. Neck: Supple. Chest: Clear. Extremities: The right hip surgical site has good hemostasis. Laboratory Studies: No new laboratory studies. X-ray/imaging: No new x-rays or imaging. Medications: Medications have been reviewed. She has no changes. She is continued on magnesium oxi de and all other medications are unchanged and will be set for discharge. Progress Made With Physical, Occupational, And Speech Therapy: Today with physical therapy, she ambu lated about 20 feet, felt tired, wanted to go back to bed, needed contact guard assistance and she of course has to maintain touchdown weightbearing status, which is difficult for her to do as she mobil izes. She recognizes that she will need significant therapy to be able to ambulate independently, ho wever, with a wheelchair, she is mobilizing much better. The rolling walker total distance about 25- 40 feet 3 times with contact guard assistance. Her occupational therapy, independent with bed mobili ty, edge of bed to wheelchair transfer, independent with toilet hygiene, bathing, upper and lower bod y dressing, footwear, independent. She did adhere to touchdown weightbearing status of the right hip with the therapist and again is ready for discharge home. With speech, she improved her BIMS score from 13 to 15 and a SLUMS score from 20 to 27 indicating cognitive functioning is within normal limit s. Assessment: Ms. Diggs is an 88-year-old patient in the rehabilitation unit with left acetabular p eriprosthetic fracture, status post repair. She has made great progress, but has some difficulty carlos manuel ntaining complete touchdown weightbearing status with therapy as she ambulates. She is doing better with physical therapy, activities of daily living. She has decreased mobility, decreased physical fu nction. Hypothyroidism, hypertension, diabetes, urinary retention, and Parkinson syndrome are manage d. Plan: She will continue with physical, occupational, and speech therapy after discharge. Continue a ll comorbid condition medications including Synthroid, hydrochlorothiazide, Lexapro, pramipexole, felicia apentin, tramadol. LB/MODL Voice ID: [id number] Report ID: [id number]
--- NOTE | 2024-04-30 00:56 | PN ---
Date of Progress Note: 04/29/2024 Subjective: The patient was seen this morning for followup. No new complaints or problems reported. She was lying in bed, not in distress. Denies any chest pain, shortness of breath, nausea, vomiting. Objective: Vital Signs: Reviewed. HEENT: Unremarkable. Lungs: Clear to auscultation. Heart: Sounds normal. Abdomen: Soft. Bowel sounds normal. No guarding, rigidity, tenderness, or distention. Extremities: No leg edema. Impression: 1. Left acetabular fracture, status post surgery. 2. Hypertension. 3. Anemia. 4. Constipation. Plan: We will go ahead and continue current medications. Continue current pain medication. The patient will continue to receive physical therapy under guidance of Dr. Varela, and she is scheduled to go home tomorrow. We will continue current antihypertensive medication. I will see her tomorrow morning for followup and then we will discharge her to go home tomorrow. The patient has appointment to go back to [facility] next week for a followup visit, and her sutures from left thigh will be removed by her orthopedic surgeon next week. SANDRO/MODL Voice ID: [id number] Report ID: [id number]
[2024-04-30 10:40] VITALS: BP 136/58
--- NOTE | 2024-04-30 15:53 | DS ---
Date of Discharge: 04/30/2024 Disposition: Discharged to go home. Physical Examination: HEENT: Unremarkable. Lungs: Clear to auscultation. Heart: Sounds normal. Abdomen: Soft. Bowel sounds normal. No guarding, rigidity, tenderness, distention. Extremities: No leg edema. Laboratory Data: On 04/20/2024, WBC was 6.6, hemoglobin 8.3, platelets 193. On 04/24/2024, WBC 6.8, hemoglobin 8.8, and platelet count of 277. For chemistry on 04/20/2024, sodium was 144, potassium w as 3.5, chloride was 110, bicarb 31, BUN 13, creatinine 0.89, glucose 97. Albumin 2.4. On 4, sodium 141, potassium 3.5, chloride 107, bicarb 31, BUN 17, creatinine 1.01, glucose 106. Albumin 2.4. Discharge Medications/instructions: Continue all prior home medication except following changes: 1.Do not take aspirin for 2 weeks. 2.Take Eliquis 2.5 mg 2 times a day for 2 weeks and once she stops Eliquis then start aspirin 81 mg by mouth daily with food. 3.Take tramadol 50 mg take 1 tablet by mouth 3 times a day as needed for pain. 4.Take vrid-jre-xfnbtig iron 65 mg 1 tablet by mouth daily. 5.Follow up at my office next week. 6.Follow up with fundraising specialist at [facility] next week. Final Diagnoses: 1.Moderately displaced fracture of left acetabulum. 2.Moderately displaced fracture of left inferior pubic ramus. 3.Anemia, unspecified. 4.Malnutrition, moderate. 5.Hypertension. 6.Constipation. 7.Mixed hyperlipidemia. 8.Type 2 diabetes mellitus. 9.Gastroesophageal reflux disease. 10.Depression. 11.Mild persistent asthma. History And Hospital Course: This is an 88-year-old female patient who fell down and was brought int o emergency room on 04/12/2024 and was diagnosed as having fracture of the left acetabulum and left i nferior pubic ramus. The patient was transferred to [facility] from our emergency Room where she had surgery done and after surgery, she was brought into our inpatient rehab. Dr. Varela managed her rehab therapy and medical problems. She remained stable except blood pressure was elevated in th e beginning, which came under better control over a period of time. She had some anemia problem, but did not require any blood transfusion and her hemoglobin has remained stable. Initially, she had co nstipation problem, that got resolved as well with appropriate medication. The patient's pain is und er much better control with tramadol and she actually has appointment next week for her to go back to fundraising specialist at [facility] for followup and her sutures from left thigh will be removed at that time of appointment. Overall, the patient's condition has improved and today she will be di scharged to go home in stable condition with above-mentioned medications and instructions. Total time spent today was 40 minutes. SANDRO/MODL Voice ID: [id number] Report ID: [id number]
== END 2024-04-30 10:30 | disposition home or self-care (01) | DRG 560 ==
LOC: 5TH 22:10
PROVIDERS: ADMIT Internal Medicine; ATTEND Internal Medicine
DX: S32.402D Unspecified fracture of left acetabulum, subsequent encounter for fracture with routine healing (principal); E44.0 Moderate protein-calorie malnutrition; S32.592D Other specified fracture of left pubis, subsequent encounter for fracture with routine healing; I10 Essential (primary) hypertension; E78.5 Hyperlipidemia, unspecified; E11.9 Type 2 diabetes mellitus without complications; E03.9 Hypothyroidism, unspecified; G20.A1 Parkinson's disease without dyskinesia, without mention of fluctuations; H35.30 Unspecified macular degeneration; K59.00 Constipation, unspecified; R33.9 Retention of urine, unspecified; G47.00 Insomnia, unspecified; E11.22 Type 2 diabetes mellitus with diabetic chronic kidney disease; I12.9 Hypertensive chronic kidney disease with stage 1 through stage 4 chronic kidney disease, or unspecified chronic kidney disease; N18.30 Chronic kidney disease, stage 3 unspecified; M15.9 Polyosteoarthritis, unspecified; D64.9 Anemia, unspecified; Z68.34 Body mass index [BMI] 34.0-34.9, adult; K21.9 Gastro-esophageal reflux disease without esophagitis; E78.2 Mixed hyperlipidemia; F32.A Depression, unspecified; J45.30 Mild persistent asthma, uncomplicated
CPT/HCPCS: 36415; 71045; 74018; 80048; 81001; 82040; 83036; 83735; 84134; 85025; 87077; 87086; 87088; 87186; 92523; 94010; 97010; 97110; 97116; 97129; 97163; 97165; 97530; 97542; J1650; J2003; Q0162

== ENCOUNTER 2024-05-18 09:28 | Emergency (ER) | payer OTHER ==
[2024-05-18] MEDS ORDERED: NA CHLORIDE 0.9% 500 ML ONE (10:00)
[2024-05-18] MEDS ORDERED: ONDANSETRON 4 MG/2 ML VIAL ONE ×2 (10:00→13:22)
[2024-05-18 10:05] LABS: Absolute Eosinophils 0.1 K/uL (0-0.5); Absolute Monocytes 0.3 K/uL (0.1-1.3); Absolute Neutrophil 3.9 K/uL (1.8-8.0); Basophils % 0.7 % (0-1.3); Eosinophils % 1.7 % (0-4.4); Hematocrit 36.7 % (36.0-45.0); Hemoglobin 11.9 g/dL (12.0-15.0); Lymphocytes % 18.1 % (15.3-44.8); MCH 29.6 pg (27.0-35.0); MCHC 32.3 g/dL (32.0-36.0); MCV 91.6 fL (80-100); MPV 7.4 fL (7.6-11.3); Monocytes % 6.6 % (3.3-12.3); Neutrophils % 72.9 % (41.7-73.7); Platelets 164 thou/uL (152-406); RBC Red Blood Cell Count 4.01 M/uL (3.86-4.86); Red Cell Distribution Width 15.2 % (12.1-15.2)
[2024-05-18 10:25] LABS: Albumin 3.2 g/dL (3.4-5.0); Anion Gap 9.5 mEq/L (5.0-15.0); Bilirubin Total 0.5 mg/dL (0.2-1.0); Globulin 3.1 g/dL (2.3-3.5); Potassium 3.5 mEq/L (3.5-5.1); Protein, Total 6.3 g/dL (6.4-8.2)
[2024-05-18 10:43] LABS: Specific Gravity 1.017 (1.005-1.030); Sqamous Epithelial <5 /HPF (None Seen); Transitional Epithelial <5 /HPF (None Seen); Urine Bacteria None Seen /HPF (<20); Urine Bilirubin NEGATIVE (Negative); Urine Blood Negative (Negative); Urine Clarity Turbid (Clear); Urine Color Yellow (Yellow); Urine Culture Reflex Order NOT NEEDED; Urine Glucose NEGATIVE (Negative); Urine Ketones NEGATIVE (Negative); Urine Microscopic Reflex YN ORDER UMIC; Urine Mucus Slight /HPF (None Seen); Urine Nitrite NEGATIVE (Negative); Urine Protein TRACE (Negative); Urine RBC <5 /HPF (None Seen); Urine Urobilinogen 1+ (Normal); Urine WBC <5 /HPF (<5)
--- NOTE | 2024-05-18 13:33 | ER ---
Nurse's Notes [facility] Name: Yady Diggs Age: 89 yrs Sex: Female : 1935 Arrival Date: 05/18/2024 Time: 09:28 Bed 17 Private MD: Diagnosis: Nausea with vomiting, unspecified;Diarrhea, unspecified Presentation: 05/18 09:29 Chief complaint: EMS states: N/V AND DIARRHEA STARTED THIS AM. HX OF BROKEN HIP 5 WEEKS db AGO. DIFFICULTY AMBULATING. FROM HOME. Coronavirus screen: Client denies travel out of the [place] in the last 14 days. At this time, the client does not indicate any symptoms associated with coronavirus-19. Ebola Screen: Patient negative for fever greater than or equal to 101.5 degrees Fahrenheit, and additional compatible Ebola Virus Disease symptoms Patient denies exposure to infectious person. Patient denies travel to an Ebola-affected area in the 21 days before illness onset. No symptoms or risks identified at this time. Initial Sepsis Screen: Does the patient meet any 2 criteria? No. Patient's initial sepsis screen is negative. Does the patient have a suspected source of infection? No. Patient's initial sepsis screen is negative. Risk Assessment: Do you want to hurt yourself or someone else? Patient reports no desire to harm self or others. Onset of symptoms was May 18, 2024. Care prior to arrival: Medication(s) given: zofran IM. 09:29 Method Of Arrival: EMS: [facility] db 09:29 Acuity: NILAY 3 db Triage Assessment: 09:29 General: Appears in no apparent distress. comfortable, Behavior is calm, cooperative. db Pain: Denies pain. Neuro: Level of Consciousness is awake, alert, obeys commands, Oriented to person, place, time, situation, Appropriate for age. Respiratory: Airway is patent Respiratory effort is even, unlabored, Respiratory pattern is regular, symmetrical. GI: Abdomen is non-distended, Reports diarrhea, nausea, vomiting. Historical: - Allergies: 09:36 adhesive tape; db 09:36 Morphine; db 09:36 Iodine; db - PMHx: 09:36 AFIB (Unknown); diabetes mellitus; GERD; Glaucoma; High Cholesterol; Hypertension; db Hypothyroidism; neuropathy; Parkinson's disease; - PSHx: 09:36 Appendectomy; section; Cholecystectomy; Hip replacement; hysterectomy; Partial db colectomy; Tonsillectomy; Shoulder replacement; - Immunization history:: Adult Immunizations unknown. - Infectious Disease History:: Denies. - Social history:: Smoking status: Patient denies any tobacco usage or history of. Screenin:[facility] ED Fall Risk Assessment (Adult) History of falling in the last 3 months, db including since admission Yes- single mechanical fall (1 pt) Confusion or Disorientation No (0 pts) Intoxicated or Sedated No (0 pts) Impaired Gait Yes (1 pt) Mobility Assist Device Used Yes (1 pt) Altered Elimination No (0 pt) Score/Fall Risk Level 3 or more points = High Risk Oriented to surroundings, Maintained a safe environment. Abuse screen: Denies threats or abuse. Denies injuries from another. Nutritional screening: No deficits noted. Tuberculosis screening: No symptoms or risk factors identified. Assessment: 09:38 Reassessment: Patient appears in no apparent distress at this time. Patient and/or db family updated on plan of care and expected duration. Pain level reassessed. Patient is alert, oriented x 3, equal unlabored respirations, skin warm/dry/pink. SEE TRIAGE FIR INITIAL ASSESSMENT. 10:15 Reassessment: Patient appears in no apparent distress at this time. Patient and/or db family updated on plan of care and expected duration. Pain level reassessed. Patient is alert, oriented x 3, equal unlabored respirations, skin warm/dry/pink. PATIENT PLACED ON PURWICK AFTER STRAIGHT CATHETER INSERTION. 13:53 Reassessment: Patient appears in no apparent distress at this time. Patient and/or db family updated on plan of care and expected duration. Pain level reassessed. Patient is alert, oriented x 3, equal unlabored respirations, skin warm/dry/pink. Reassessment: Patient states feeling better. Patient states symptoms have improved. General: Appears in no apparent distress. comfortable, Behavior is calm, cooperative. Neuro: Level of Consciousness is awake, alert, obeys commands, Oriented to person, place, time, situation. GI: No deficits noted. No signs and/or symptoms were reported involving the gastrointestinal system. Vital Signs: 09:29 BP 139 / 59; Pulse 75; Resp 16; Temp 97.1; Pulse Ox 97% ; Weight 61.23 kg; Height 5 ft. db 1 in. ; 10:00 BP 147 / 53; Pulse 78; Resp 16; Pulse Ox 97% on R/A; db 11:30 BP 151 / 48; Pulse 66; Resp 16; Pulse Ox 95% ; db 12:30 BP 155 / 53; Pulse 66; Resp 16; Pulse Ox 98% on R/A; db 13:30 BP 149 / 56; Pulse 64; Resp 16; Pulse Ox 96% ; db 09:29 Body Mass Index 25.51 (61.23 kg, 154.94 cm) db ED Course: 09:29 Arm band placed on Patient placed in an exam room. db 09:33 Patient arrived in ED. db 09:36 Triage completed. db 09:38 Tommy Ngo MD is Attending Physician. bo1 09:38 Patient has correct armband on for positive identification. Bed in low position. Call db light in reach. Side rails up X 1. Pulse ox on. NIBP on. Warm blanket given. Pillow given. 09:45 Jaky Milelr RN is Primary Nurse. db 09:50 Initial lab(s) drawn, by me, sent to lab. Inserted saline lock: 22 gauge in right db antecubital area, using aseptic technique. Blood collected. Flushed with 10 mL NS. 10:14 Straight cath inserted, using sterile technique, 14 Fr. Returned clear yellow urine. db Patient tolerated well. 10:20 Urinalysis w/ reflexes Sent. db 13:53 Provided Education on: DISCHARGE AND FOLLOWUP. db 13:53 No provider procedures requiring assistance completed. IV discontinued, intact, db bleeding controlled, No redness/swelling at site. Administered Medications: 10:00 Drug: Ondansetron IVP 4 mg IVP once; over 2 minutes Route: IVP; Site: right antecubital;db 13:26 Follow up: Response: No adverse reaction db 10:00 Drug: NS 0.9% IV 500 ml 500 ml IV at 1 bolus once; to be given as a bolus over 30 db minutes Volume: 500 ml; Route: IV; Rate: 1 bolus; Site: right antecubital; 13:26 Follow up: Response: No adverse reaction; IV Status: Completed infusion; IV Intake: db 500ml 13:26 Drug: Ondansetron IVP 4 mg IVP once; over 2 minutes Route: IVP; Site: right antecubital;db 13:54 Follow up: Response: No adverse reaction db Medication: 09:39 VIS not applicable for this client. db Intake: 13:26 IV: 500ml; Total: 500ml. db Outcome: 13:32 Discharge ordered by bo1 13:53 Discharged to home via wheelchair, with family, db 13:53 Condition: stable 13:53 Discharge instructions given to patient, family, Instructed on discharge instructions, follow up and referral plans. Prescriptions given X 1, 13:54 Patient left the ED. db Signatures: Jaky Miller RN RN joon Ngo, MD ALICIA Sanders bo1 Corrections: (The following items were deleted from the chart) 09:37 09:36 PSHx: Hip replacement; db db 09:37 09:36 PSHx: Hip replacement; db db
--- NOTE | 2024-05-18 13:33 | EDPHYS ---
Physician Documentation [facility] Name: Yady Diggs Age: 89 yrs Sex: Female : 1935 Arrival Date: 05/18/2024 Time: 09:28 Bed 17 Private MD: ED Physician Tommy Ngo HPI: 05/18 09:42 This 89 yrs old Female presents to ER via EMS with complaints of bo1 Nausea/Vomiting/Diarrhea. 09:42 The patient presents to the emergency department with nausea, vomiting, diarrhea, bo1 abdominal pain. Onset: The symptoms/episode began/occurred gradually, 3 day(s) ago. Possible causes: Medications or unknown. Associated signs and symptoms: Pertinent positives: abdominal pain, Pertinent negatives: fever. Severity of symptoms: At their worst the symptoms were moderate. Recent left hip surgery post fall 6 weeks ago. Pt arrives via EMS called by . Historical: - Allergies: 09:36 adhesive tape; db 09:36 Morphine; db 09:36 Iodine; db - PMHx: 09:36 AFIB (Unknown); diabetes mellitus; GERD; Glaucoma; High Cholesterol; Hypertension; db Hypothyroidism; neuropathy; Parkinson's disease; - PSHx: 09:36 Appendectomy; section; Cholecystectomy; Hip replacement; hysterectomy; Partial db colectomy; Tonsillectomy; Shoulder replacement; - Immunization history:: Adult Immunizations unknown. - Infectious Disease History:: Denies. - Social history:: Smoking status: Patient denies any tobacco usage or history of. ROS: 13:28 Constitutional: Negative for fever, chills, and weight loss bo1 13:28 Neck: Negative for pain with movement, pain at rest, 13:28 Cardiovascular: Negative for chest pain, 13:28 Respiratory: Negative for cough, shortness of breath, 13:28 Abdomen/GI: Positive for nausea, vomiting, and diarrhea, Negative for abdominal pain, 13:28 Back: Negative for pain at rest, 13:28 MS/extremity: Negative for pain, swelling, tenderness, 13:28 Skin: Negative for rash, swelling, 13:28 Neuro: Negative for altered mental status, 13:28 All other systems are negative, Exam: 13:30 Constitutional: This is a well developed, well nourished patient who is awake, alert, bo1 and in no acute distress. 13:30 Constitutional: The patient appears alert, awake, comfortable, Elderly but A/O x 3 13:30 Head/face: Exam is negative for acute changes, 13:30 Eyes: Sclera: no acute changes, icterus, is not appreciated, 13:30 Neck: External neck: is normal, no acute changes, 13:30 Chest/axilla: Inspection: normal, no acute changes, 13:30 Cardiovascular: Rate: normal, Rhythm: regular, Pulses: no pulse deficits are appreciated, 13:30 Respiratory: the patient does not display signs of respiratory distress, Respirations: normal, no acute changes, Breath sounds: are clear throughout, 13:30 Abdomen/GI: Inspection: abdomen appears normal, Bowel sounds: normal, Palpation: soft, rebound tenderness, is not appreciated, 13:30 Musculoskeletal/extremity: DVT Exam: no pain, no swelling, no tenderness, 13:30 Skin: no rash present. Vital Signs: 09:29 BP 139 / 59; Pulse 75; Resp 16; Temp 97.1; Pulse Ox 97% ; Weight 61.23 kg; Height 5 ft. db 1 in. ; 10:00 BP 147 / 53; Pulse 78; Resp 16; Pulse Ox 97% on R/A; db 11:30 BP 151 / 48; Pulse 66; Resp 16; Pulse Ox 95% ; db 12:30 BP 155 / 53; Pulse 66; Resp 16; Pulse Ox 98% on R/A; db 13:30 BP 149 / 56; Pulse 64; Resp 16; Pulse Ox 96% ; db 09:29 Body Mass Index 25.51 (61.23 kg, 154.94 cm) db MDM: 09:38 Medical Screening Exam initiated bo1 13:34 Differential diagnosis: viral gastroenteritis, gastroenteritis. Data reviewed: vital bo1 signs, lab test result(s). Response to treatment: the patient's symptoms have mildly improved after treatment, patient is well hydrated. Discussed with spouse, trial of Zofran agreed upon. 05/18 09:44 Order name: CBC with Diff; Complete Time: 10:38 bo1 05/18 09:44 Order name: CMP; Complete Time: 10:38 bo1 05/18 09:44 Order name: Lipase; Complete Time: 10:38 bo1 05/18 09:44 Order name: Urinalysis w/ reflexes; Complete Time: 10:43 bo1 05/18 09:44 Order name: IV Saline Lock; Complete Time: 10:04 bo1 05/18 09:44 Order name: Labs collected and sent; Complete Time: 10:04 bo1 Administered Medications: 10:00 Drug: Ondansetron IVP 4 mg IVP once; over 2 minutes Route: IVP; Site: right antecubital;db 13:26 Follow up: Response: No adverse reaction db 10:00 Drug: NS 0.9% IV 500 ml 500 ml IV at 1 bolus once; to be given as a bolus over 30 db minutes Volume: 500 ml; Route: IV; Rate: 1 bolus; Site: right antecubital; 13:26 Follow up: Response: No adverse reaction; IV Status: Completed infusion; IV Intake: db 500ml 13:26 Drug: Ondansetron IVP 4 mg IVP once; over 2 minutes Route: IVP; Site: right antecubital;db 13:54 Follow up: Response: No adverse reaction db Disposition Summary: 05/18/24 13:32 Discharge Ordered Notes: Location: Home bo1 Problem: new bo1 Symptoms: have improved bo1 Condition: Stable bo1 Diagnosis - Nausea with vomiting, unspecified bo1 - Diarrhea, unspecified bo1 Followup: bo1 - With: Private Physician - When: Tomorrow - Reason: Recheck today's complaints, Continuance of care Discharge Instructions: - Discharge Summary Sheet bo1 - Diarrhea, Adult bo1 - Nausea and Vomiting, Adult, [id number] bo1 Forms: - Medication Reconciliation Form bo1 - Antibiotic Education bo1 - Prescription Opioid Use bo1 - Patient Portal Instructions bo1 - Leadership Thank You Letter bo1 Prescriptions: - ondansetron 8 mg Oral Tablet,disintegrating - take 1 tablet ORAL route every 8 hours; 15 tablet; Refills: 0, Product bo1 Selection Permitted Signatures: Dispatcher [employer] Jaky Lentz RN RN db OeiTommy MD MD bo1 Corrections: (The following items were deleted from the chart) 09:37 09:36 PSHx: Hip replacement; db db 09:37 09:36 PSHx: Hip replacement; db db 09:44 09:44 CBC+H.LAB.BRZ ordered. EDMS EDMS 09:44 09:44 COMPREHENSIVE METABOLIC PANEL+C.LAB.BRZ ordered. EDMS EDMS 09:44 09:44 LIPASE+C.LAB.BRZ ordered. EDMS EDMS 09:44 09:44 Urinalysis+U.LAB.BRZ ordered. EDMS EDMS 11:19 10:39 Abdomen Limited+US.RAD.BRZ ordered. EDMS EDMS
[2024-05-18 14:26] VITALS: TEMP 97.1
[2024-05-18 14:44] VITALS: BP 149/56; O2SAT 96
== END 2024-05-18 13:54 | disposition home or self-care (01) ==
LOC: ER 09:28
DX: R11.2 Nausea with vomiting, unspecified (principal); R19.7 Diarrhea, unspecified; Z96.642 Presence of left artificial hip joint
CPT/HCPCS: 96361; 85025; 81001; 36415; 83690; 80053; 51702; 96374; 99285; J2405 ×2; J7040

== ENCOUNTER 2025-03-02 13:20 | Inpatient (IN) | payer OTHER ==
[2025-03-02 15:07] LABS: Absolute Lymphocytes (CBC) 2.6 K/uL (0.7-4.9); Hematocrit 36.0 % (36.0-45.0); Hemoglobin 12.2 g/dL (12.0-15.0); MCH 28.8 pg (27.0-35.0); MCHC 33.9 g/dL (32.0-36.0); MCV 84.9 fL (80-100); MPV 7.0 fL (7.6-11.3); Nucleated RBC Absolute Count 0.0 (0-0); Nucleated Red Blood Cells % 0.1 % (0-0); RBC Red Blood Cell Count 4.24 M/uL (3.86-4.86); White Blood Count 6.40 thou/uL (4.3-10.9)
[2025-03-02 15:30] LABS: ALT/SGPT 36.0 U/L (13-56); AST/SGOT 25.0 U/L (15-37); Albumin 3.6 g/dL (3.4-5.0); Albumin/Globulin Ratio 1.1 (1.1-1.8); Alkaline Phosphatase 94.0 U/L (45-117); Anion Gap 8.2 mEq/L (5.0-15.0); BUN Blood Urea Nitrogen 36.0 mg/dL (7-18); Globulin 3.3 g/dL (2.3-3.5); Glucose Level 109.0 mg/dL (74-106); Lipase 32.0 U/L (13-75); Potassium 4.2 mEq/L (3.5-5.1)
--- NOTE | 2025-03-02 16:43 | RAD REPORT ---
EXAMINATION: CT ABDOMEN AND PELVIS WITHOUT CONTRAST CLINICAL INDICATION: Abdominal pain TECHNIQUE: CT abdomen and pelvis was performed, as per department protocol. IV contrast and oral was not administered.Axial, sagittal and coronal reconstructions were obtained. One or more of the following dose reduction techniques were used: Automated exposure control, adjustment of the mA and/o r kV according to the patient size, and/or iterative reconstruction. Unless otherwise specified, incidental findings do not require dedicated imaging follow-up. [id number]. COMPARISON: December 2023. FINDINGS: The lack of intravenous and oral contrast limits evaluation of solid organs, vessels and bowel. The liver, spleen, pancreas, adrenals and left kidney appear grossly normal. Small cyst right kidney. Left hip arthroplasty. Cholecystectomy. Post surgical changes involve the bowel. Mildly dilated loop of small bowel within the left upper pel vis contains increased density. Hysterectomy. No adnexal mass. Old pelvic fractures. [id number] hiatal hernia No evidence of diverticulitis IMPRESSION: Mildly dilated loop of small bowel could represent a focal ileus or stricture. No evidence of an obst ruction. Increased density within this loop of small bowel could represent ingested contents or a bleed and should be correlated clinically
--- NOTE | 2025-03-02 17:22 | EDPHYS ---
Physician Documentation [facility] Name: Yady Diggs Age: 89 yrs Sex: Female : 1935 Arrival Date: 03/02/2025 Time: 13:20 Bed 5 Private MD: ED Physician Dano Abdi HPI: 03/02 14:03 This 89 yrs old Female presents to ER via Wheelchair with complaints of kb Abdominal Pain, Decreased Appetite, Weakness. 14:03 Part patient is a 89-year-old female who presents for decreased appetite, lower kb abdominal pain and weakness that has been ongoing for 2 months. States the symptoms have been intermittent and came back today. Had an appoint with Dr. Pena but decided to come to the ED today due to pain. Reports diarrhea. Denies vomiting, nausea, fever.. Historical: - Allergies: 13:58 Morphine; dd2 - PMHx: 13:58 Hypertensive disorder; Diabetes mellitus; Hypothyroidism; MVP; Parkinson's disease; dd2 NEUROPATHY; 14:01 HERNIA; dd2 - PSHx: 13:58 Hip replacement; hysterectomy; Partial colectomy; Shoulder replacement; Tonsillectomy; dd2 WATCHMAN (Tonsillectomy); - Immunization history:: Adult Immunizations up to date. - Infectious Disease History:: Denies. - Social history:: Smoking status: Patient denies any tobacco usage or history of. ROS: 14:04 Constitutional: As per HPI kb Exam: 14:04 Constitutional: This is a well developed, well nourished patient who is awake, alert, kb and in no acute distress. Head/Face: Normocephalic, atraumatic. ENT: Moist Mucous membranes Cardiovascular: Regular rate Respiratory: Respirations even and unlabored. No increased work of breathing. Talking in full sentences Skin: Warm, dry with normal turgor. Normal color. MS/ Extremity: Pulses equal, no cyanosis. Neurovascular intact. Full, normal range of motion. Neuro: Awake and alert, GCS 15, oriented to person, place, time, and situation. 14:04 Abdomen/GI: Inspection: abdomen appears normal, Bowel sounds: normal, Palpation: soft, in all quadrants, moderate abdominal tenderness, in the right lower quadrant and left lower quadrant, 15:28 ECG was reviewed by the Attending Physician. kb Vital Signs: 14:01 BP 130 / 55; Pulse 51; Resp 16; Temp 97.3; Pulse Ox 98% on R/A; Pain 8/10; dd2 14:53 BP 144 / 79; Pulse 50; Resp 15; Pulse Ox 99% ; jl7 15:07 BP 160 / 51; Pulse 43; Resp 17; Pulse Ox 98% on R/A; ap3 16:21 BP 159 / 43; Pulse 46; Resp 15; Pulse Ox 96% ; jl7 17:01 BP 151 / 49; Pulse 40; Resp 15; Pulse Ox 99% ; jl7 17:38 BP 151 / 49; Pulse 45; Resp 15; Pulse Ox 100% ; jl7 18:07 BP 161 / 64; Pulse 63; Resp 18; Pulse Ox 98% on R/A; ap3 19:37 BP 164 / 58; Pulse 59; Resp 16; Pulse Ox 98% on R/A; kd3 14:01 Pain Scale: Adult dd2 MDM: 13:59 Medical Screening Exam initiated kb 14:04 Historians other than the Patient: Family Member: family. kb 17:20 Data reviewed: vital signs, nurses notes. Consideration of Admission/Observation kb Patient was admitted/placed on observation. Escalation of care including admission/observation considered. Management of patient was discussed with the following: Hospitalist: Dr. Pena accepts patient for admission. Journal Box Inspector: Dr. Galarza consulted due to bradycardia and accepts patient for consult. Counseling: I had a detailed discussion with the patient and/or guardian regarding the historical points, exam findings, and any diagnostic results supporting the discharge/admit diagnosis, lab results, radiology results, the need for further work-up and treatment in the hospital. 03/02 14:02 Order name: CBC with Diff; Complete Time: 15:15 kb 03/02 14:02 Order name: CMP; Complete Time: 15:32 kb 03/02 14:02 Order name: Lipase; Complete Time: 15:32 kb 03/02 17:43 Order name: UA Rfx Terrence Cult if indicated 03/02 15:53 Order name: Abdomen ; Complete Time: 16:47 EDMS 03/02 15:10 Order name: EKG; Complete Time: 15:10 kb 03/02 14:02 Order name: IV Saline Lock; Complete Time: 15:04 kb 03/02 14:02 Order name: Labs collected and sent; Complete Time: 15:04 kb 03/02 15:10 Order name: EKG - Nurse/Tech; Complete Time: 15:21 kb EC:28 Rate is 44 beats/min. Rhythm is regular. QRS [place] is Normal. NM interval is normal at kb 140 msec. QRS interval is normal at 126 msec. QT interval is normal at 453 msec. Administered Medications: No medications were administered Disposition Summary: 03/02/25 17:21 Hospitalization Ordered Notes: Hospitalization Status: Inpatient Admission kb Provider: Tunde Pena Location: Telemetry/MedSurg (Inpatient) kb Condition: Stable kb Problem: new kb Symptoms: are unchanged kb Bed/Room Type: Standard Room Assignment: 408(03/02/25 18:28) ss Diagnosis - Ileus, unspecified kb - Bradycardia, unspecified kb Forms: - Medication Reconciliation Form kb - SBAR form kb - Leadership Thank You Letter kb Signatures: Dispatcher [employer] EDMS Maxine August, ERIKA-C INTERIOR SPECIALIST-Magalys Avery Shelby, JAM RN ss Evelyn Cano RN RN ap3 HILARIA DOBBINS RN RN dd2 Corrections: (The following items were deleted from the chart) 15:53 14:02 Abdomen Pelvis W Con+CT.RAD.BRZ ordered. EDMS EDMS 17:44 17:44 UA Rfx Terrence Cult if indicated+U.LAB.BRZ ordered. EDMS EDMS 18:02 17:21 kb bd 18:20 18:02 401 bd ss 18:28 18:20 405 ss ss
--- NOTE | 2025-03-02 17:22 | ER ---
Nurse's Notes [facility] Name: Yady Diggs Age: 89 yrs Sex: Female : 1935 Arrival Date: 03/02/2025 Time: 13:20 Bed 5 Private MD: Diagnosis: Ileus, unspecified;Bradycardia, unspecified Presentation: 03/02 13:55 Chief complaint: Patient states: RT LOWER STOMACH PAIN, WEAKNESS, NO APPETITE X 2 dd2 MONTHS OFF/ON. PT REPORTS THESE SYMPTOMS RETURNED YESTERDAY. Coronavirus screen: At this time, the client does not indicate any symptoms associated with coronavirus-19. Ebola Screen: No symptoms or risks identified at this time. Risk Assessment: Do you want to hurt yourself or someone else? Patient reports no desire to harm self or others. Onset of symptoms was March 01, 2025. 13:55 Method Of Arrival: Wheelchair dd2 13:55 Acuity: NILAY 3 dd2 14:01 Initial Sepsis Screen: Does the patient meet any 2 criteria? No. Patient's initial dd2 sepsis screen is negative. Does the patient have a suspected source of infection? No. Patient's initial sepsis screen is negative. Triage Assessment: 14:01 General: Appears uncomfortable, Behavior is cooperative, appropriate for age, crying. dd2 Pain: Complains of pain in abdomen. GI: Reports lower abdominal pain, upper abdominal pain, anorexia, cramping. Historical: - Allergies: 13:58 Morphine; dd2 - PMHx: 13:58 Hypertensive disorder; Diabetes mellitus; Hypothyroidism; MVP; Parkinson's disease; dd2 NEUROPATHY; 14:01 HERNIA; dd2 - PSHx: 13:58 Hip replacement; hysterectomy; Partial colectomy; Shoulder replacement; Tonsillectomy; dd2 WATCHMAN (Tonsillectomy); - Immunization history:: Adult Immunizations up to date. - Infectious Disease History:: Denies. - Social history:: Smoking status: Patient denies any tobacco usage or history of. Screenin:05 Abuse screen: Denies threats or abuse. Nutritional screening: No deficits noted. ap3 Tuberculosis screening: No symptoms or risk factors identified. 18:08 [facility] ED Fall Risk Assessment (Adult) History of falling in the last 3 months, ap3 including since admission Yes- fall prone (multiple falls) (3 pts) Confusion or Disorientation No (0 pts) Intoxicated or Sedated No (0 pts) Impaired Gait No (0 pts) Mobility Assist Device Used Yes (1 pt) Altered Elimination No (0 pt) Score/Fall Risk Level 3 or more points = High Risk Oriented to surroundings, Maintained a safe environment, Educated pt \T\ family on fall prevention, incl call for assistance when getting out of bed, Assessed \T\ reinforced patient's understanding of fall precautions, Hourly rounding (assess needs \T\ fall precautionary measures) done, Remained w/in arm's length of patient and in sight while toileting, Offered frequent toileting (1:1 observation), Remained with patient while ambulating, Utilized family, sitter, or virtual automobile accessories installer as indicated. Assessment: 15:03 General: Appears in no apparent distress. Behavior is calm, cooperative, appropriate ap3 for age. Pain: Complains of pain in abdomen. Neuro: Level of Consciousness is awake, alert, obeys commands, Oriented to person, place, time, situation, Appropriate for age. Cardiovascular: Patient's skin is warm and dry. Respiratory: Airway is patent Respiratory effort is even, unlabored, Respiratory pattern is regular, symmetrical. GI: Abd is soft Reports lower abdominal pain, upper abdominal pain. 15:07 General: provider notified of patients heart rate. . ap3 16:33 Reassessment: Patient and/or family updated on plan of care and expected duration. Pain ap3 level reassessed. Patient is alert, oriented x 3, equal unlabored respirations, skin warm/dry/pink. patient provided with bedside commode. 17:03 Reassessment: patients pulse observed to be between 38-47bpm on the front desk monitor. ap3 provider notified. 17:03 Reassessment: Patient and/or family updated on plan of care and expected duration. Pain ap3 level reassessed. Patient is alert, oriented x 3, equal unlabored respirations, skin warm/dry/pink. General: Appears comfortable, Behavior is calm, cooperative, appropriate for age. Neuro: Level of Consciousness is awake, alert, obeys commands, Oriented to person, place, time, situation, Appropriate for age Speech is normal. Cardiovascular: Patient's skin is warm and dry. Respiratory: Airway is patent Respiratory effort is even, unlabored, Respiratory pattern is regular, symmetrical. 19:38 GI: Bowel sounds present X 4 quads. kd3 Vital Signs: 14:01 BP 130 / 55; Pulse 51; Resp 16; Temp 97.3; Pulse Ox 98% on R/A; Pain 8/10; dd2 14:53 BP 144 / 79; Pulse 50; Resp 15; Pulse Ox 99% ; jl7 15:07 BP 160 / 51; Pulse 43; Resp 17; Pulse Ox 98% on R/A; ap3 16:21 BP 159 / 43; Pulse 46; Resp 15; Pulse Ox 96% ; jl7 17:01 BP 151 / 49; Pulse 40; Resp 15; Pulse Ox 99% ; jl7 17:38 BP 151 / 49; Pulse 45; Resp 15; Pulse Ox 100% ; jl7 18:07 BP 161 / 64; Pulse 63; Resp 18; Pulse Ox 98% on R/A; ap3 19:37 BP 164 / 58; Pulse 59; Resp 16; Pulse Ox 98% on R/A; kd3 14:01 Pain Scale: Adult dd2 ED Course: 13:25 Patient arrived in ED. cj3 13:39 Dano Abdi MD is Attending Physician. sp3 13:58 Triage completed. dd2 13:59 Maxine August FNP-C is PHCP. kb 14:01 Arm band placed on right wrist. dd2 14:53 Terrence Blandon, RN is Primary Nurse. jl7 15:00 Client placed on continuous cardiac and pulse oximetry monitoring. NIBP monitoring ap3 applied. clinical research monitor on. Pulse ox on. NIBP on. 15:04 Initial lab(s) drawn, by wa, sent to lab. Inserted saline lock: 22 gauge in right ap3 antecubital area, using aseptic technique. Blood collected. Flushed with 10 mL NS. 15:20 EKG done, by ED staff, reviewed by Maxine BORRERO. ap3 16:14 Abdomen In Process Unspecified. EDMS 16:34 Patient has correct armband on for positive identification. Placed in gown. Bed in low ap3 position. Call light in reach. Adult w/ patient. 17:21 Tunde Pena MD is Hospitalizing Provider. kb 18:08 Admitting physician to see patient. ap3 18:09 Provided Education on: fall risk education. ap3 19:38 No provider procedures requiring assistance completed. Patient admitted, IV remains in kd3 place. Administered Medications: No medications were administered Medication: 16:35 VIS not applicable for this client. ap3 Outcome: 17:21 Decision to Hospitalize by Provider. kb 19:38 Admitted to Med/surg accompanied by tech, via wheelchair, kd3 19:38 Condition: stable 19:38 Discharge instructions given to patient, Instructed on the need for admit, 19:38 Patient left the ED. kd3 Signatures: Dispatcher [employer] EDMS Maxine August, CREW CLERK-C CREW CLERK-CkTerrence Bravo, RN RN jl7 Evelyn Cano RN RN ap3 Dano Abdi MD MD sp3 Temi Lentz RN RN kd3 HILARIA DOBBINS RN RN dd2 Rivka Shetty cj3 Corrections: (The following items were deleted from the chart) 16:35 16:34 Client placed on continuous cardiac and pulse oximetry monitoring. NIBP ap3 monitoring applied. clinical research monitor on. Pulse ox on. NIBP on. ap3
[2025-03-02] MEDS: NA CHLORIDE 0.9% 1,000 ML IV SCH (20:35)
[2025-03-02 22:23] VITALS: BMI 27.2
--- NOTE | 2025-03-03 03:19 | HP ---
Date of Admission: 03/02/2025 Chief Complaint: Abdominal pain and poor appetite. History Of Present Illness: This is an 89-year-old pleasant female patient who actually had appointment to see me at office today and instead of coming to office, she decided to come to emergency room with above-mentioned complaints. The patient reported that for last 2 months, she is having intermittent abdominal pain associated with nausea and her symptoms are getting worse over a period of last 2 months, so she decided to come to emergency room today. She denies any fever, chills, vomiting. Denies any blood in stool, but says either sometimes she has constipation or sometime diarrhea. After she was evaluated in the ER, I was contacted requesting admission to hospital. Her lowest heart rate in the emergency room was 38 per minute and she is showing sinus bradycardia. She had had blood work and a CAT scan done in the emergency room and results reviewed and decision was made to admit her to hospital for further evaluation and management of this problem. Allergies: TO MORPHINE CAUSING NAUSEA AND VOMITING. Medications: Amiodarone 200 mg takes half a tablet daily, albuterol inhaler 2 puffs 4 times a day as needed for shortness of breath, Tylenol with codeine is prescribed by repair specialist, amlodipine 5 mg daily in morning, atorvastatin 20 mg daily in the evening, Senokot-S 2 tablets 2 times a day, escitalopram 20 mg daily with breakfast, famotidine 40 mg daily at bedtime, Advair 1 puff 2 times a day, gabapentin 600 mg, hydrochlorothiazide 12.5 mg daily, levothyroxine 50 mcg daily, lisinopril 20 mg 2 times a day, magnesium oxide 400 mg daily, pantoprazole 40 mg daily, tamsulosin 0.4 mg daily, trazodone 50 mg takes 3 tablets at bedtime. Review of Systems: GI: As mentioned above. Cardiovascular: As mentioned above. All other systems reviewed and negative. Past Medical History: Chronic kidney disease, stage IIIB; type 2 diabetes mellitus with chronic kidney disease; hypertension; mixed hyperlipidemia; hypothyroidism; chronic diastolic heart failure; mild persistent asthma; Parkinson disease; peripheral neuropathy; gastroesophageal reflux disease; diverticulosis; depression; paroxysmal atrial fibrillation. Past Surgical History: Significant for left eye surgery; tonsillectomy; Watchman's procedure, July 20, 2023; cholecystectomy; appendectomy; hernia repair; hysterectomy; right shoulder and left hip surgery. Family History: Father , had rectal cancer. Mother , had heart disease. Brother , had colon cancer, prostate cancer, and heart disease. Sister , details unknown. Social History: Negative for smoking and alcohol use. Physical Examination: Vital Signs: Height 61 inches, weight 144 pounds, temperature 97.3, pulse 61, oxygen saturation 99%, blood pressure 161/64 when I was in room with her. General: Awake, alert, oriented, not in distress. HEENT: Head atraumatic, normocephalic. Conjunctivae nonerythematous. Sclerae white. Mouth, no thrush or edema noted. Ears/Nose, no mass, lesion, discharge noted. Neck: Supple. No JVD, lymph nodes, bruit, thyromegaly noted. Lungs: Bilateral good equal air entry. Clear to auscultation. No rhonchi. No rales. Heart: Normal heart sounds, no murmur or gallop. Abdomen: Soft, bowel sounds normal. No guarding, rigidity, distension, presence of mild tenderness all across lower abdomen. No rebound tenderness. No hepatosplenomegaly or bruit. Extremities: No leg edema. No calf tenderness. Skin: No rash, ulcer, cellulitis. Lymphatics: No lymph node enlargement in neck, supraclavicular, infraclavicular region. Neuro: No focal neurological deficit. Chest: Unremarkable. External Genitalia: Deferred. Rectal: Deferred. Laboratory Data: WBC 6.4, hemoglobin 12.2, platelets 190. Sodium 139, potassium 4.2, chloride 107, bicarb 28, BUN 36, creatinine 2.0, estimated GFR 24. Liver function tests unremarkable. Glucose 109, lipase 32. EKG shows sinus bradycardia. CAT scan of abdomen and pelvis shows mildly dilated loop of small bowel, could represent either focal ileus or stricture. No evidence of obstruction. Increased density within this loop of small bowel could represent ingested contents or bleed. It is important to note that the patient does not have any signs or symptoms of GI bleeding. Impression: 1. Sinus bradycardia. 2. Abdominal pain. 3. Acute kidney injury. 4. Chronic kidney disease, stage IIIB. 5. Parkinson disease. 6. Hypothyroidism. 7. Type 2 diabetes mellitus. 8. Mild persistent asthma. 9. Hypertension. 10. Mixed hyperlipidemia. 11. Paroxysmal atrial fibrillation, status post Watchman's procedure. 12. Gastroesophageal reflux disease. 13. Diverticulosis. 14. Depression. Plan: Admit the patient to hospital for further evaluation and management of this problem. The patient is appropriate for inpatient and is expected to spend 2 midnights in the hospital. We will consult vp cardiovascular for her sinus bradycardia and we will not use any amiodarone at this point. Monitor her on telemetry for any worsening of her bradycardia problem. For her abdominal pain, we will consult Dr. Marrufo, who has done exploratory laparotomy on her over 10 to 15 years ago. This was for abdominal pain and it was due to intraabdominal scar tissue. At this point, there is no evidence of any GI bleeding or bowel obstruction. For hypertension, we will monitor blood pressure. Use medication as it becomes necessary. For hypothyroidism, continue thyroid medication per order. For hyperlipidemia, continue statin therapy per order. No need for further intervention. For gastroesophageal reflux disease, we will continue her proton pump inhibitor therapy and no need for further intervention. We will monitor her electrolytes and renal function. Repeat blood work tomorrow. Total time spent today 65 minutes including communication with the emergency room provider, review of last office visit record from 12/22/2024, review of emergency room visit record from today and performing today's evaluation and management. SANDRO/MODL Voice ID: [id number] YAIMA
[2025-03-03 04:10] LABS: Absolute Lymphocytes (CBC) 2.8 K/uL (0.7-4.9); Hematocrit 33.7 % (36.0-45.0); Hemoglobin 11.5 g/dL (12.0-15.0); MCH 29.0 pg (27.0-35.0); MCHC 34.2 g/dL (32.0-36.0); MCV 84.8 fL (80-100); MPV 8.4 fL (7.6-11.3); Nucleated RBC Absolute Count 0.0 (0-0); Nucleated Red Blood Cells % 0.1 % (0-0); RBC Red Blood Cell Count 3.97 M/uL (3.86-4.86); White Blood Count 6.80 thou/uL (4.3-10.9)
[2025-03-03 05:25] LABS: Anion Gap 9.7 mEq/L (5.0-15.0); BUN Blood Urea Nitrogen 32.0 mg/dL (7-18); Glucose Level 103.0 mg/dL (74-106); Potassium 3.7 mEq/L (3.5-5.1)
[2025-03-03] MEDS: MAGNESIUM OXIDE 400 MG TAB PO SCH (08:17)
[2025-03-03] MEDS: DOCUSATE NA/SENNA CONC 1 TAB PO SCH (08:17)
[2025-03-03] MEDS: GABAPENTIN 300 MG CAP PO SCH (08:17)
[2025-03-03] MEDS: TAMSULOSIN 0.4 MG SR CAP PO SCH (08:17)
[2025-03-03] MEDS: ESCITALOPRAM 20 MG TAB PO SCH (08:18)
[2025-03-03] MEDS: AMLODIPINE 5 MG TAB PO SCH (08:18)
[2025-03-03] MEDS ORDERED: DOCUSATE NA/SENNA CONC 1 TAB PO SCH (09:00)
[2025-03-03] MEDS ORDERED: KCL 20 MEQ/100 mL IVPB 20 MEQ/100 ML BAG IV SCH (09:00)
[2025-03-03] MEDS: ACETAMINOPHEN 325 MG TABLET PO PRN (09:24)
[2025-03-03] MEDS: POTASSIUM CL SA 10 MEQ TAB PO ONE (09:24)
--- NOTE | 2025-03-03 10:13 | P.CNS ---
Date of Consult: 03/03/25 Chief Complaint: abdominal pain History of Present Illness: Patient with PMH of AF s/p watchman, HTN, DD, Pulmonary HTN, presented with abdominal pain, decrease apatite for the last few days, denies chest pain, no palpitations, no recent syncope, no breathing problems. Allergies adhesive tape Allergy (Verified 04/19/24 22:52) blisters morphine Adverse Reaction (Mild, Verified 04/19/24 22:52) Headache/Nausea/Vomiting Home medications list reviewed: Yes Home Medications: Atorvastatin Calcium 20 mg PO BEDTIME 01/31/16 Levothyroxine Sodium 50 mcg PO DAILY 01/31/16 Trazodone [Desyrel*] 150 mg PO BEDTIME 03/17/23 Cranberry Fruit Extract [Cranberry] 200 mg PO BID 04/19/24 Escitalopram [Lexapro*] 20 mg PO DAILY 04/19/24 Gabapentin 300 mg PO BID 04/19/24 Pantoprazole [Protonix Tab*] 40 mg PO DAILY 04/19/24 Pramipexole [Mirapex*] 0.25 mg PO BID 04/19/24 hydroCHLOROthiazide [Hydrochlorothiazide*] 12.5 mg PO DAILY 04/19/24 lisinopriL [Prinivil*] 20 mg PO BID 04/19/24 Cranberry Fruit Extract 200 mg PO BID cap 04/29/24 Ferrous Sulfate [Ferrous Sulfate*] 325 mg PO DAILY tab 04/29/24 Tamsulosin [Flomax*] 0.4 mg PO BEDTIME #30 cap 04/29/24 Amlodipine Besylate 5 mg PO DAILY 03/02/25 Dorzolamide HCl/Pf [Dorzolamide 2% Eye Drop] 10 ml OP DAILY 03/02/25 Famotidine 40 mg PO DAILY 03/02/25 Furosemide 20 mg PO DAILY 03/02/25 - Past Medical/Surgical History Diabetic: Yes -: HTN -: Hyperlipidemia -: Hypothyroidism -: Glaucoma/Macular degeneration -: Asthma -: diverticulosis -: Anemia -: Bradycardia -: urinary retention -: Hernia repair -: r knee replacement, left hip replacement -: tonsillectomy -: abd scar tissue removal -: bilateral cataract -: hysterectomy -: Appendectomy, cholecystecomy -: bladder & rectal suspension, sm bowel resection Psychosocial/ Personal History: lives at home with family - Family History Mother Medical History: Heart disease, Hypertension Father Medical History: Other (see notes) Notes: blind - Social History Smoking Status: Unknown if ever smoked Alcohol use: No CD- Drugs: No Caffeine use: Yes Place of Residence: Home Review of Systems 10-point ROS is otherwise unremarkable Physical Examination Temp Pulse Resp BP Pulse Ox 98.3 F 57 18 150/65 H 96 03/03/25 08:00 03/03/25 08:21 03/03/25 08:00 03/03/25 08:21 03/03/25 08:00 General: Alert, In no apparent distress HEENT: Atraumatic, PERRLA, Mucous membr. moist/pink, EOMI, Sclerae nonicteric Neck: Supple, 2+ carotid pulse no bruit, No LAD, Without JVD or thyroid abnormality Respiratory: Clear to auscultation bilaterally, Normal air movement Cardiovascular: Regular rate/rhythm, Normal S1 S2 Gastrointestinal: Normal bowel sounds, No tenderness Musculoskeletal: No tenderness Integumentary: No rashes Neurological: Normal gait, Normal speech, Normal tone, Normal affect Lymphatics: No axilla or inguinal lymphadenopathy Laboratory Data (last 24 hrs) 03/02/25 03/02/25 14:59 14:59 WBC 6.40 Hgb 12.2 Hct 36.0 Plt Count 190 Sodium 139 Potassium 4.2 BUN 36 H Creatinine 2.00 H Glucose 109 H Total Bilirubin 0.5 AST 25 ALT 36 Alkaline Phosphatase 94 Lipase 32 - Problems (1) Bradycardia Current Visit: Yes Status: Acute Plan: patient tele was reviewed and it showing sinus bradycardia with no significant pauses. continue to hold amiodarone continue to monitor on tele patient with history of AF s/p watchman so continue ASA 81 mg daily patient had a stress test recently in office that is negative also echo that shown normal LV systolic function, DD and mild AR with moderate MR and moderate pulmonary HTN (2) Chronic diastolic heart failure Current Visit: Yes Status: Acute Plan: patient looks euvolemic on exam continue lisinopril, lasix and HCTZ no AVN blocking agents due to bradycardia continue to monitor input and output and electrolytes. (3) Pulmonary HTN Current Visit: Yes Status: Acute Plan: moderate to severe, RVSP is 55-60 on most recent echo continue medications as above.
--- NOTE | 2025-03-03 11:00 | CON ---
Date of Consultation: 03/02/2025 Reason For Consultation: Abdominal pain. History Of Present Illness: The patient is an 89-year-old female who presented to the emergency room yesterday with a long history of abdominal pain and poor appetite. The patient has had chronic abdo kevyn pain. She has had multiple abdominal surgeries and the last one was 6 years ago in which did a lysis of adhesions. She also had incisional hernia repair done by me 9 years ago and she has had of f and on pain going on for several months, slightly increasing in severity, but when she came to the emergency room, she was found to be in sinus bradycardia. She was admitted for further evaluation, fabio ibarra, and I was consulted. She says she has occasional nausea and vomiting. She is passing gas. S he did have a bowel movement yesterday. She denies any sore throat, runny nose, cough, headaches, or dizziness. No chest pain. No fever or chills. Review of Systems: Otherwise unremarkable. Past Medical History: Chronic kidney disease, diabetes type 2, hypertension, hyperlipidemia, hypothy roidism, chronic diastolic heart failure, Parkinson's, peripheral neuropathy, GERD, AFib, depression. Past Surgical History: Left eye surgery, tonsillectomy, Watchman procedure, cholecystectomy, appende ctomy, hernia surgery, lysis of adhesions, exploratory laparotomy, hysterectomy, right shoulder and l eft hip surgery. Allergies: MORPHINE. Social History: The patient does not smoke or drink alcohol. Family History: Significant for rectal cancer in the father, heart disease in the mother, colon canc er in the brother. Brother also had prostate cancer and heart disease. Physical Examination: Vital Signs: Stable. Currently, her heart rate varies from 40 to 55. Blood pressure is adequate. She is afebrile. General: She is awake and alert. Head and Neck: No masses. Chest: Clear. Heart: S1, S2. Abdomen: Soft, nondistended. However, she does have some tenderness in the lower abdomen, right marlys e more than the left, but no rebound. No rigidity. No guarding. Some fullness in the abdominal wal l. No discrete hernia appreciated. Extremities: Adequately perfused. Nontender. Neuro: Nonfocal. Diagnostic Data: CT of the abdomen and pelvis reviewed, which shows mild dilatation of the small bow el within the left upper pelvis containing decreased density, could be focal ileus or mild stricture. No evidence of obstruction. No other significant findings noted. No obvious hernia described on t he CT report. I will check with the radiologist. Laboratory Data: White count is normal. There is no left shift. Chemistry reviewed. BUN and creat inine are slightly elevated. Otherwise, essentially unremarkable. Assessment: Chronic abdominal pain, probably secondary to adhesions and sinus bradycardia. Recommendations: At this point, patient's cardiac condition needs to be evaluated further and we are awaiting Cardiology consult. There is no need for any acute surgical intervention. I will try medi curly management for the abdominal pain as much as possible and probably optimize that more. If this p ain is persistent or progressive, then we can consider surgical options as an outpatient. The patien t will obviously need a full cardiac clearance prior to any intervention given her history. Plan of care was discussed in detail with the patient as well as Dr. Pena. JORGE/OLGA LIDIA Voice ID: [id number] Report ID: [id number]
[2025-03-03 20:15] VITALS: O2SAT 96
[2025-03-03] MEDS: FAMOTIDINE 20 MG TAB PO SCH (21:02)
[2025-03-03] MEDS: ATORVASTATIN 20 MG TAB PO SCH (21:02)
--- NOTE | 2025-03-03 23:51 | PN ---
Date of Progress Note: 03/03/2025 Subjective: The patient was seen this morning for followup. Overall, her abdominal pain was better today than yesterday. Denies any nausea, vomiting overnight. Objective: Vital Signs: Reviewed. HEENT: Unremarkable. Lungs: Clear to auscultation. Heart: Sounds normal. Abdomen: Soft. Bowel sounds normal. No guarding, rigidity, tenderness, distention except mild tend erness in right lower quadrant area and suprapubic area, but left-sided tenderness has resolved compl etely. Overall, magnitude of tenderness is much better today than yesterday. No rebound tenderness. Extremities: No leg edema. Laboratory Data: WBC 6.8, hemoglobin 11.5, platelets 175. Sodium 141, potassium 3.7, chloride 110, bicarb 25, BUN 32, creatinine 1.82, glucose 103. Impression: 1. Ileus. 2. Hypertension. 3. Chronic kidney disease. 4. Anemia. Plan: Details were discussed with Dr. Marrufo who evaluated the patient today and he has recommended c onservative management. We will continue current diet. Continue current medications and plan is to see her tomorrow. Hopefully, we can discharge her to go home tomorrow depending on her condition. SANDRO/MODL Voice ID: [id number] Report ID: [id number]
[2025-03-04] MEDS: LEVOTHYROXINE SOD 0.05 MG TABLET PO SCH (05:40)
[2025-03-04] MEDS: PANTOPRAZOLE 40MG TABLET PO SCH (05:40)
[2025-03-04 05:45] LABS: Anion Gap 10.1 mEq/L (5.0-15.0); BUN Blood Urea Nitrogen 21.0 mg/dL (7-18); Glucose Level 86.0 mg/dL (74-106); Potassium 4.1 mEq/L (3.5-5.1)
[2025-03-04 08:53] VITALS: TEMP 98.1
[2025-03-04 12:27] VITALS: BP 142/62
--- NOTE | 2025-03-05 07:21 | DS ---
Date of Discharge: 03/04/2025 Disposition: Discharged to go home. Physical Examination: HEENT: Unremarkable. Lungs: Clear to auscultation. Heart: Sounds normal. Abdomen: Soft. Bowel sounds normal. No guarding, rigidity, distention. Minimal right lower quadrant tenderness. Overall much better than before. No rebound tenderness. Extremities: No leg edema. Discharge Diagnoses: 1. Sinus bradycardia. 2. Abdominal pain. 3. Acute kidney injury. 4. Chronic kidney disease, stage IIIB. 5. Parkinson disease. 6. Hypothyroidism. 7. Type 2 diabetes mellitus. 8. Mild persistent asthma. 9. Hypertension. 10. Mixed hyperlipidemia. 11. Paroxysmal atrial fibrillation, status post Watchman's procedure. 12. Gastroesophageal reflux disease. 13. Diverticulosis. 14. Depression. Discharge Medications: Continue all prior home medications except following changes: 1. STOP Amiodarone 2. Start Ondansetron 4 mg, take 1 tablet by mouth four times a day as needed for nausea and prescription was sent to your [facility] pharmacy from Dr. Pena's office Follow up with Dr. Pena next week Follow up with Dr. Powers in two to three weeks. Laboratory Data: Upon admission, WBC 6.4, hemoglobin 12.2, platelets 190. Sodium 139, potassium 4.2, chloride 107, bicarb 28, BUN 36, creatinine 2.0, estimated GFR 24. Liver function tests unremarkable. Glucose 109, lipase 32. EKG shows sinus bradycardia. CAT scan of abdomen and pelvis shows mildly dilated loop of small bowel, could represent either focal ileus or stricture. No evidence of obstruction. Increased density within this loop of small bowel could represent ingested contents or bleed. It is important to note that the patient does not have any signs or symptoms of GI bleeding. Today, sodium 142, potassium 4.1, chloride 114, bicarb 22, BUN 21, creatinine 1.40, glucose 86. Hospital Course: This is an 89-year-old pleasant female patient who was admitted to the hospital with abdominal pain, nausea, and poor appetite. Please see dictated H and P for more information. The patient was evaluated in the emergency room. She was admitted to the hospital. Consultation was obtained from Dr. Powers for bradycardia and also consultation was obtained from general surgeon, Dr. Marrufo. Dr. Marrufo recommended conservative medical management. No need for any further intervention and Dr. Powers recommended for patient to discontinue amiodarone due to significant sinus bradycardia with heart rate dropping down to 38 beats per minute. After we stopped amiodarone, her heart rate remained stable. She did not have any further significant bradycardia problem. Dr. Marrufo from General Surgery was consulted. He did not suggest any further surgical intervention. Initially patient was on clear liquid diet and today we advanced her to soft diet. The patient had few bowel movements today. She is ambulating well and was discharged to go home in stable condition. SANDRO/MODMark Voice ID: [id number] Report ID: [id number]
== END 2025-03-04 15:53 | disposition home health service (06) | DRG 309 ==
LOC: ER 13:20 → ERHOLD 18:10 → 4TH 19:05
PROVIDERS: ADMIT Internal Medicine; ATTEND Internal Medicine
DX: R00.1 Bradycardia, unspecified (principal); I13.0 Hypertensive heart and chronic kidney disease with heart failure and stage 1 through stage 4 chronic kidney disease, or unspecified chronic kidney disease; K56.7 Ileus, unspecified; I50.32 Chronic diastolic (congestive) heart failure; N17.9 Acute kidney failure, unspecified; N18.32 Chronic kidney disease, stage 3b; E11.22 Type 2 diabetes mellitus with diabetic chronic kidney disease; E11.42 Type 2 diabetes mellitus with diabetic polyneuropathy; D63.1 Anemia in chronic kidney disease; E03.9 Hypothyroidism, unspecified; E78.2 Mixed hyperlipidemia; F32.A Depression, unspecified; I27.20 Pulmonary hypertension, unspecified; I08.0 Rheumatic disorders of both mitral and aortic valves; I48.0 Paroxysmal atrial fibrillation; J45.30 Mild persistent asthma, uncomplicated; K21.9 Gastro-esophageal reflux disease without esophagitis; G20.A1 Parkinson's disease without dyskinesia, without mention of fluctuations; K57.90 Diverticulosis of intestine, part unspecified, without perforation or abscess without bleeding; Z88.5 Allergy status to narcotic agent; Z90.710 Acquired absence of both cervix and uterus; Z90.49 Acquired absence of other specified parts of digestive tract; Z79.899 Other long term (current) drug therapy; Z96.651 Presence of right artificial knee joint; Z96.642 Presence of left artificial hip joint
CPT/HCPCS: 36415; 74176; 80048; 80053; 83690; 85025; 93005; 97110; 97116; 97161; 97530; 99285; J3480; J7030

== ENCOUNTER 2025-03-12 12:26 | Emergency (ER) | payer OTHER ==
[2025-03-12 13:06] LABS: Absolute Lymphocytes (CBC) 2.3 K/uL (0.7-4.9); Hematocrit 31.2 % (36.0-45.0); Hemoglobin 10.5 g/dL (12.0-15.0); MCH 28.8 pg (27.0-35.0); MCHC 33.6 g/dL (32.0-36.0); MCV 85.7 fL (80-100); MPV 7.7 fL (7.6-11.3); Nucleated RBC Absolute Count 0.0 (0-0); Nucleated Red Blood Cells % 0.0 % (0-0); RBC Red Blood Cell Count 3.64 M/uL (3.86-4.86); White Blood Count 7.50 thou/uL (4.3-10.9)
[2025-03-12] MEDS ORDERED: KETOROLAC 30 MG/ML INJ ONE (13:19)
[2025-03-12 13:21] LABS: Anion Gap 9.4 mEq/L (5.0-15.0); BUN Blood Urea Nitrogen 30.0 mg/dL (7-18); Glucose Level 93.0 mg/dL (74-106); Potassium 4.4 mEq/L (3.5-5.1)
[2025-03-12 13:57] LABS: Sqamous Epithelial None Seen /HPF (None Seen); Urine Crystals Unidentified Few /HPF (None Seen); Urine Culture Reflex Order REFLEXED; Urine Microscopic Reflex YN ORDER UMIC; Urine WBC Clump Few /HPF (None Seen); Urine Yeast (Budding) Few /HPF (None Seen)
[2025-03-12] MEDS ORDERED: CEFTRIAXONE 1000 MG/VIAL ONE (14:18)
--- NOTE | 2025-03-12 15:26 | RAD REPORT ---
EXAMINATION: CT Abdomen Pelvis Wo Contrast CLINICAL INDICATION: Female, 89 years old. ABD PAIN TECHNIQUE: CT abdomen and pelvis was performed, without IV contrast, as per department protocol. Axia l, sagittal and coronal reconstructions were obtained. One or more of the following dose reduction techniques were used: Automated exposure control, adjustment of the mA and kV according to the patien t size, and iterative reconstruction. Unless otherwise specified, incidental findings do not require dedicated imaging follow-up. COMPARISON: 03/02/2025 FINDINGS: The lack of intravenous contrast limits the sensitivity of this exam for evaluation of solid visceral organs, vascular structures, and retroperitoneum. LOWER CHEST: The visualized lung bases are clear. LIVER: Normal in size and contour. No focal lesion. BILIARY SYSTEM: Status post cholecystectomy. SPLEEN: Normal size. No focal lesion. PANCREAS: No mass, ductal dilation, or west-pancreatic fluid. ADRENALS: Normal; no mass. KIDNEYS AND URETERS: Normal size and contour. No hydronephrosis. URINARY BLADDER: Decompressed limiting evaluation. Velez catheter in place.. GASTROINTESTINAL TRACT: Moderate sliding hiatal hernia. Mild distal colonic diverticulosis without ev idence of acute diverticulitis. Sequelae of distal small bowel resection with right lower quadrant anastomotic suture line anteriorly. No evidence of bowel obstruction, significant free fluid, free ai r or abscess. APPENDIX: Appendix not visualized, but no inflammatory changes in region of appendix. LYMPH NODES: No lymphadenopathy. MUSCULOSKELETAL: No acute or suspicious osseous abnormality. ADDITIONAL FINDINGS: Stable healing or healed bilateral inferior pubic ramus fractures. Left hip arth roplasty hardware with additional left bony pelvis fixation screws are again seen. Diastases recti. Moderate atherosclerotic calcific plaque of the abdominal aorta. IMPRESSION: No acute or concerning abnormalities in the abdomen or pelvis. Evaluation of the bladder is limited b y decompression and metallic streak artifact resulting from left hip hardware.
--- NOTE | 2025-03-12 15:45 | ER ---
Nurse's Notes [facility] Name: Yday Diggs Age: 89 yrs Sex: Female : 1935 Arrival Date: 03/12/2025 Time: 12:26 Bed 8 Private MD: Diagnosis: Retention of urine, unspecified;UTI/ Urinary tract infection, site not specified;Headache Presentation: 03/12 12:42 Chief complaint: Patient states: UNABLE TO URINATE SINCE LAST NIGHT AND HEADACHE X 1 dd2 MONTH. PT RECENTLY D/C FROM HOSPITAL. Coronavirus screen: At this time, the client does not indicate any symptoms associated with coronavirus-19. Ebola Screen: No symptoms or risks identified at this time. Initial Sepsis Screen: Does the patient meet any 2 criteria? No. Patient's initial sepsis screen is negative. Does the patient have a suspected source of infection? No. Patient's initial sepsis screen is negative. Risk Assessment: Do you want to hurt yourself or someone else? Patient reports no desire to harm self or others. Onset of symptoms was March 11, 2025. 12:42 Method Of Arrival: Wheelchair dd2 12:42 Acuity: NILAY 3 dd2 Triage Assessment: 12:44 Headache History: The patient has had previous headaches and this one is similar to dd2 previous episodes. General: Appears in no apparent distress. uncomfortable. General: Behavior is calm, cooperative, appropriate for age. Pain: Complains of pain in right lower quadrant and left lower quadrant, head Pain currently is 8 out of 10 on a pain scale. Pain began 1 month ago Also complains of no other associated symptoms. Neuro: Level of Consciousness is awake, alert, obeys commands, Oriented to person, place, time, situation, Appropriate for age Reports headache. : Reports inability to void, since 03/11/2025. Historical: - Allergies: 12:44 Morphine; dd2 - PMHx: 12:44 diabetes mellitus; Hernia; Hypertensive disorder; Hypothyroidism; MVP; neuropathy; dd2 Parkinson's disease; Congestive heart failure; - PSHx: 12:44 Hip replacement; hysterectomy; Partial colectomy; Shoulder replacement; Tonsillectomy; dd2 watchman (le); - Immunization history:: Adult Immunizations unknown. - Infectious Disease History:: Denies. - Social history:: Smoking status: Patient denies any tobacco usage or history of. Screenin:55 [facility] ED Fall Risk Assessment (Adult) History of falling in the last 3 months, jp5 including since admission No falls in past 3 months (0 pts) Confusion or Disorientation No (0 pts) Intoxicated or Sedated No (0 pts) Impaired Gait Yes (1 pt) Mobility Assist Device Used Yes (1 pt) Altered Elimination Yes (1 pt) Score/Fall Risk Level 3 or more points = High Risk Oriented to surroundings, Maintained a safe environment, Educated pt \T\ family on fall prevention, incl call for assistance when getting out of bed, Assessed \T\ reinforced patient's understanding of fall precautions, Provided non-skid footwear, Hourly rounding (assess needs \T\ fall precautionary measures) done, Used ambulatory aids as needed (educated on \T\ assisted with), Used gait belt as appropriate Implemented a Fall Risk Plan of Care, Apply high fall risk patient identification: yellow non skid footwear/ fall signage, Placed fall mat w/ non beveled edge next to bed, Activated bed/chair alarm, Remained w/in arm's length of patient and in sight while toileting, Offered frequent toileting (1:1 observation), Remained with patient while ambulating, Utilized family, sitter, or virtual bulb tester as indicated. Abuse screen: Denies threats or abuse. Denies injuries from another. Nutritional screening: No deficits noted. Tuberculosis screening: No symptoms or risk factors identified. Assessment: 12:50 Pain: Complains of pain in suprapubic area Quality of pain is described as FULL. : jp5 Bladder is distended Reports inability to void, since LAST NIGHT. Vital Signs: 12:42 BP 170 / 62; Pulse 57; Resp 17; Temp 98.3; Pulse Ox 98% on R/A; Weight 70 kg (M); Pain dd2 8/10; 13:30 BP 145 / 68; Pulse 50; Resp 18; Pulse Ox 97% on R/A; jp5 12:42 Pain Scale: Adult dd2 ED Course: 12:31 Patient arrived in ED. al6 12:31 Eder James NP is PHCP. cr8 12:31 Carlos Gutierrez DO is Attending Physician. cr8 12:44 Triage completed. dd2 12:44 Arm band placed on right wrist. dd2 12:50 Sherry Johnson, RN is Primary Nurse. jp5 12:55 Patient has correct armband on for positive identification. Bed in low position. Call jp5 light in reach. Side rails up X 1. Provided Education on: CALL LIGHT USE. Pulse ox on. NIBP on. Warm blanket given. 12:55 No provider procedures requiring assistance completed. Initial lab(s) drawn, by wy, jp5 sent to lab. Inserted saline lock: 20 gauge in right antecubital area, using aseptic technique. Blood collected. Flushed with 10 mL NS. 12:59 CBC with Diff Sent. jp5 12:59 BMP Sent. jp5 13:45 Urine collected: Velez catheter specimen, cloudy, Amount Returned: 520mL. Velez cath jp5 inserted, using sterile technique, 16 Fr., by wy, balloon inflated, to gravity drainage, urine specimen collected. returned cloudy urine. Patient tolerated well. 15:09 CT Abd/Pelvis - Without Contrast In Process Unspecified. EDMS 16:23 IV discontinued, intact, bleeding controlled, No redness/swelling at site. Pressure nh2 dressing applied. Administered Medications: 13:35 Drug: Ketorolac IVP 15 mg IVP once Route: IVP; Site: right antecubital; jp5 14:19 Drug: Rocephin IV 1 grams IV at bolus once; Given slow IV push per pharmacy jp5 instructions Route: IV; Rate: bolus; Site: right antecubital; Medication: 12:55 VIS not applicable for this client. jp5 Outcome: 15:44 Discharge ordered by . [email or web address] 16:23 Discharged to home via wheelchair, with significant other, nh2 16:23 Condition: stable 16:23 Discharge instructions given to patient, significant other, Instructed on discharge instructions, follow up and referral plans. medication usage, Demonstrated understanding of instructions, follow-up care, medications, Prescriptions given X 1, 16:33 Patient left the ED. nh2 Signatures: Dispatcher [employer] EDMS Sherry Johnson RN RN jp5 HILARIA DOBBINS RN RN dd2 Chris Harvey Jr, RN RN nh2 Katey Villalta6 Eder James NP DRY CHAIN WORKER cr8 Corrections: (The following items were deleted from the chart) 12:44 12:44 PSHx: Hip replacement; dd2 dd2 12:44 PSHx: Shoulder replacement; dd2 dd2
--- NOTE | 2025-03-12 15:45 | EDPHYS ---
Physician Documentation [facility] Name: Yady Diggs Age: 89 yrs Sex: Female : 1935 Arrival Date: 03/12/2025 Time: 12:26 Bed 8 Private MD: ED Physician Carlos uGtierrez HPI: 03/12 13:06 This 89 yrs old Female presents to ER via Wheelchair with complaints of cr8 Headache, Urinary Problem. 13:06 Patient is a 89-year-old female history of diabetes, hypertension, hypothyroidism, cr8 Parkinson's, neuropathy comes emergency room complaining of trouble urinating. Reports for the last 2 days she has had a decrease in urination and reports suprapubic pain. She denies vomiting or diarrhea but has nausea. She has been afebrile without chills or rigors. Reports she was just in the hospital and discharged. Reports during the hospital they had to straight catheter 3 times because she could not void. Also reports her small colon is giving her problems. Unable to ascertain exactly what she is referring to when talking about that. She also complains of a headache but reports she has been having this headache for years, it is unchanged and lacks previous episodes. Patient is neurologically intact.. Historical: - Allergies: 12:44 Morphine; dd2 - PMHx: 12:44 diabetes mellitus; Hernia; Hypertensive disorder; Hypothyroidism; MVP; neuropathy; dd2 Parkinson's disease; Congestive heart failure; - PSHx: 12:44 Hip replacement; hysterectomy; Partial colectomy; Shoulder replacement; Tonsillectomy; dd2 watchman (le); - Immunization history:: Adult Immunizations unknown. - Infectious Disease History:: Denies. - Social history:: Smoking status: Patient denies any tobacco usage or history of. ROS: 13:06 Constitutional: as per HPI cr8 Exam: 13:06 Constitutional: This is a well developed, well nourished patient who is awake, alert, cr8 and in no acute distress. Cardiovascular: Regular rate and rhythm with a normal S1 and S2. No gallops, murmurs, or rubs. Respiratory: Lungs have equal breath sounds bilaterally, clear to auscultation. No rales, rhonchi or wheezes noted. No increased work of breathing. Abdomen/GI: Soft with normal bowel sounds. No distension. No guarding or rebound. Minimal tenderness to lower abdomen, no focal tenderness Skin: Warm, dry with normal turgor. Normal color with no rashes, no lesions, and no evidence of cellulitis. MS/ Extremity: Pulses equal, no cyanosis. Neurovascular intact. Full, normal range of motion. Neuro: Awake and alert, GCS 15, oriented to person, place, time, and situation. Cranial nerves II-XII grossly intact. Motor strength 5/5 in all extremities. Sensory grossly intact. 15:15 Special observations: Reevaluated patient. She is sleeping comfortably. She is in no cr8 distress. States her pain is improved. Discussed results so far., Vital Signs: 12:42 BP 170 / 62; Pulse 57; Resp 17; Temp 98.3; Pulse Ox 98% on R/A; Weight 70 kg (M); Pain dd2 8/10; 13:30 BP 145 / 68; Pulse 50; Resp 18; Pulse Ox 97% on R/A; jp5 12:42 Pain Scale: Adult dd2 MDM: 12:54 Medical Screening Exam initiated cr8 15:37 Data reviewed: vital signs, nurses notes, old medical records, lab test result(s), cr8 radiologic studies. Counseling: I had a detailed discussion with the patient and/or guardian regarding the historical points, exam findings, and any diagnostic results supporting the discharge/admit diagnosis, lab results, radiology results, the need for outpatient follow up. Response to treatment: the patient's symptoms have markedly improved after treatment. 15:48 Consideration of Admission/Observation Patient was admitted/placed on observation. ED cr8 course: This patient presents with a headache most consistent with benign headache from either tension type headache vs migraine. No headache red flags. Neurologic exam without evidence of meningismus, AMS, focal neurologic findings so doubt meningitis, encephalitis, stroke. Presentation not consistent with acute intracranial bleed to include SAH (lack of risk factors, headache history). No history of trauma so doubt ICH. Given history and physical temporal arteritis unlikely, as is acute angle closure glaucoma. Doubt carotid artery dissection given no focal neuro deficits, no neck trauma or recent neck strain. Patient with no signs of increased intracranial pressure or weight loss and history and physical suggest more benign headache so less likely mass effect in brain from tumor or abscess or idiopathic intracranial hypertension. Given work up low suspicion for acute hepatobiliary disease (including acute cholecystitis), acute pancreatitis (neg lipase), PUD and gastric perforation, acute appendicitis, vascular catastrophe, bowel obstruction or viscus perforation, diverticulitis. Presentation not consistent with other acute, emergent causes of abdominal pain at this time. CT abdomen pelvis was negative for acute findings. Considered that the patient's pain was related to urinary retention and bladder distention. Nursing staff reports that when she had the Velez placed and drained the urine that her symptoms improved. Did consider possible admission for urinary tract infection but there is no sepsis indication and patient is well-appearing. Therefore we will go ahead and place her on antibiotics leave the Velez intact and have her follow-up with her PCP.. 03/12 12:49 Order name: CBC with Diff; Complete Time: 13:09 cr8 03/12 12:49 Order name: BMP; Complete Time: 13:22 cr8 03/12 12:49 Order name: UA Rfx Terrence Cult if indicated; Complete Time: 14:06 cr8 03/12 14:05 Order name: Urine Culture EDWY 03/12 14:48 Order name: CT Abd/Pelvis - Without Contrast; Complete Time: 15:31 cr8 03/12 12:49 Order name: IV Saline Lock; Complete Time: 12:59 cr8 Administered Medications: 13:35 Drug: Ketorolac IVP 15 mg IVP once Route: IVP; Site: right antecubital; jp5 14:19 Drug: Rocephin IV 1 grams IV at bolus once; Given slow IV push per pharmacy jp5 instructions Route: IV; Rate: bolus; Site: right antecubital; Disposition: 20:20 I was immediately available on-site in the Emergency Department for consultation in the [facility] care of the patient. Disposition Summary: 03/12/25 15:44 Discharge Ordered Notes: Location: Home cr8 Condition: Stable cr8 Diagnosis - Retention of urine, unspecified cr8 - UTI/ Urinary tract infection, site not specified cr8 - Headache cr8 Followup: cr8 - With: Private Physician - When: 2 - 3 days - Reason: Recheck today's complaints, Continuance of care, Re-evaluation by your physician Followup: cr8 - With: Emergency Department - When: As needed - Reason: Fever > 102 F, Trouble breathing, Worsening of condition, Recheck today's complaints, Continuance of care, Re-evaluation by your physician Discharge Instructions: - Discharge Summary Sheet cr8 - Indwelling Urinary Catheter Care, Adult cr8 - General Headache Without Cause cr8 - Acute Urinary Retention, Female cr8 - Urinary Tract Infection, Adult cr8 Forms: - Medication Reconciliation Form cr8 - Antibiotic Education cr8 - Prescription Opioid Use cr8 - Patient Portal Instructions cr8 - Leadership Thank You Letter cr8 Prescriptions: - cefuroxime axetil 500 mg Oral tablet - take 1 tablet ORAL route 2 times per day for 7 days; 14 tablet; Refills: 0, cr8 Product Selection Permitted Signatures: Dispatcher [employer] EDMS Carlos Gutierrez DO DO ms3 Sherry Johnson RN RN jp5 HILARIA DOBBINS RN RN dd2 Eder Jmaes, FAMILY SERVICE WORKER FAMILY SERVICE WORKER cr8 Corrections: (The following items were deleted from the chart) 12:44 12:44 PSHx: Hip replacement; dd2 dd2 12:44 12:44 PSHx: Shoulder replacement; dd2 dd2 15:49 13:06 Constitutional: This is a well developed, well nourished patient who is awake, cr8 alert, and in no acute distress. cr8
[2025-03-12 16:38] VITALS: TEMP 98.3
[2025-03-12 16:39] VITALS: BP 145/68; O2SAT 97
== END 2025-03-12 16:33 | disposition home or self-care (01) ==
LOC: ER 12:26
DX: N39.0 Urinary tract infection, site not specified (principal); R51.9 Headache, unspecified
CPT/HCPCS: 87088; 85025; 81001; 87086; 80048; 36415; 87077; 87186; 74176; 51702; 96375; 96374; 99285; J1885; J0696